=== PATIENT | male | born 1940 | race Caucasian/White ===

== ENCOUNTER 2016-11-27 10:12 | Emergency (ER) | payer MEDICARE ==
--- NOTE | 2016-11-27 10:59 | XR ---
EXAMINATION TYPE: XR ribs LT w pa chest xray DATE OF EXAM: 11/27/2016 10:48 AM COMPARISON: NONE HISTORY: Pain fall TECHNIQUE: AP chest and 2 views left RIBS FINDINGS: Multiple bilateral pulmonary nodules are present. The largest on the mid right lung measuri ng approximately 1.5 and 2.2 cm. Additional multiple smaller bilateral pulmonary nodules are present No pneumothorax is evident. On the rib study of 2.1 cm nodule at the left base may be visualized in t he retrocardiac region. No displaced rib fractures are evident. IMPRESSION: 1. Multiple bilateral pulmonary nodules. 2. No acute rib fractures
[2016-11-27] MEDS ORDERED: DIAZEPAM 5 MG TAB PO STA (11:50)
[2016-11-27] MEDS ORDERED: MORPHINE SULFATE 10 MG/ML SYRINGE IM STA (11:50)
[2016-11-27] MEDS ORDERED: KETOROLAC 60 MG/2 ML VIAL IM STA (11:55)
--- NOTE | 2016-11-27 11:55 | ED ---
Fall HPI - General Chief Complaint: Fall Stated Complaint: Fall Time Seen by Provider: 11/27/16 11:28 Source: patient, family, RN notes reviewed Mode of arrival: wheelchair - History of Present Illness Initial Comments: Patient is a 76-year-old male presents to the emergency room for evaluation of fall injury. Patient states that he tripped over a rug in the garage and fell on his left side landing on his left ribs. Patient denies head trauma. Patient denies loss of consciousness. Patient states having 10 out of 10 per pain every time he moves or takes a deep breath. Patient denies any other injuries during incident. Patient denies headache or dizziness. Patient denies cough. Patient denies abdominal pain. Patient denies taking any blood thinners. - Related Data Home Medications Medication Instructions Recorded Confirmed Aspirin 81 mg PO Q48H 11/27/16 11/27/16 Atenolol [Tenormin] 25 mg PO DAILY 11/27/16 11/27/16 Meloxicam [Mobic] 7.5 mg PO BID 11/27/16 11/27/16 Multivitamins, Thera [Multivitamin 1 tab PO DAILY 11/27/16 11/27/16 (formulary)] amLODIPine BESYLATE/BENAZEPRIL 1 cap PO DAILY 11/27/16 11/27/16 [Lotrel 10-20 mg Capsule] Previous Rx's Medication Instructions Recorded Diazepam [Valium] 5 mg PO BID PRN #10 tab 11/27/16 HYDROcodone/APAP 5-325MG [Tyrone 1 tab PO Q6HR PRN #12 tab 11/27/16 5-325] Allergies Allergy/AdvReac Type Severity Reaction Status Date / Time Saoudsz-Ujm-Epv Reductase AdvReac MUSCLE PAIN Verified 11/27/16 11:03 Inhibitor Review of Systems ROS Statement: Those systems with pertinent positive or pertinent negative responses have been documented in the HPI. ROS Other: All systems not noted in ROS Statement are negative. Past Medical History Past Medical History: Coronary Artery Disease (CAD), Hypertension, Osteoarthritis (OA) History of Any Multi-Drug Resistant Organisms: None Reported Past Surgical History: Heart Catheterization With Stent, Joint Replacement, Orthopedic Surgery Additional Past Surgical History / Comment(s): bilateral knees Past Psychological History: No Psychological Hx Reported Smoking Status: Former smoker Past Alcohol Use History: None Reported Past Drug Use History: None Reported General Exam - General Exam Comments Initial Comments: Sitting in exam room, no acute distress. Limitations: no limitations General appearance: alert, in no apparent distress Head exam: Present: atraumatic, normocephalic, normal inspection Eye exam: Present: normal appearance ENT exam: Present: normal exam Neck exam: Present: normal inspection Respiratory exam: Present: normal lung sounds bilaterally, chest wall tenderness (Tenderness on palpating left anterior ribs). Absent: respiratory distress Cardiovascular Exam: Present: regular rate, normal rhythm, normal heart sounds Extremities exam: Present: normal inspection Back exam: Present: normal inspection Neurological exam: Present: alert, oriented X3, CN II-XII intact, normal gait Psychiatric exam: Present: normal affect, normal mood Skin exam: Present: warm, dry, intact, normal color. Absent: rash Course Vital Signs 11/27/16 11/27/16 10:17 12:51 Temperature 98.1 F 98.4 F Pulse Rate 67 64 Respiratory 20 18 Rate Blood Pressure 143/83 138/56 O2 Sat by Pulse 96 94 L Oximetry Medical Decision Making - Medical Decision Making Patient is a 26-year-old male presents emergency room for evaluation of fall injury. Patient states 10 pain and left anterior rib area. No fractures or dislocations noted on chest x-ray. Patient is feeling better after pain medications given. Patient will be sent home with incentive spirometer. Patient was sent home with pain medications. Advised patient to follow-up with his primary care provider in 24-48 hours for reevaluation. Patient states she understands everything that was discussed with him. Return parameters discussed. Case discussed with Dr. Mcneil. - Radiology Data Radiology results: report reviewed, image reviewed Disposition Clinical Impression: Fall, Rib contusion Disposition: HOME SELF-CARE Condition: Good Instructions: Fall Prevention for Older Adults (ED), Rib Contusion (ED) Additional Instructions: Use incentive spirometer as directed. Take pain medications as needed. Please follow-up with primary care provider for reevaluation. If any new symptom arises or symptoms worsen, return to ER as soon as possible. Prescriptions: HYDROcodone/APAP 5-325MG [Tyrone 5-325] 1 tab PO Q6HR PRN #12 tab PRN Reason: Pain Diazepam [Valium] 5 mg PO BID PRN #10 tab PRN Reason: Pain Referrals: Fredy Rodriguez III, MD [Primary Care Provider] - 1-2 days Time of Disposition: 13:07
[2016-11-27 12:52] VITALS: BP 138/56; PULSE 64; RESP 18; TEMP 98.4
== END 2016-11-27 13:38 | disposition home or self-care (01) ==
LOC: EC 10:12
DX: S20.219A Contusion of unspecified front wall of thorax, initial encounter (principal); I10 Essential (primary) hypertension; M19.90 Unspecified osteoarthritis, unspecified site; Z87.891 Personal history of nicotine dependence; Z79.1 Long term (current) use of non-steroidal anti-inflammatories (NSAID); Z79.82 Long term (current) use of aspirin; Z79.899 Other long term (current) drug therapy; Z88.8 Allergy status to other drugs, medicaments and biological substances; W18.09XA Striking against other object with subsequent fall, initial encounter; Y92.59 Other trade areas as the place of occurrence of the external cause
CPT/HCPCS: 71101; 99283; 96372 ×2; J2270; J1885

== ENCOUNTER → 2016-12-24 | Outpatient (CLI) | payer MEDICARE ==
--- NOTE | 2016-12-24 10:20 | CT ---
EXAMINATION TYPE: CT chest wo con DATE OF EXAM: 12/24/2016 COMPARISON: CT chest October 19, 2015 and older exam October 26, 2014. PET/CT February 23, 2016 HISTORY: Lung nodule CT DLP: 952 mGycm. Automated Exposure Control for Dose Reduction was Utilized. TECHNIQUE: CT scan of the thorax is performed without IV contrast. FINDINGS: Exam is more accurately compare to older CT October 26, [address] is performed under hi gh-resolution protocol making evaluation for subcentimeter nodules suboptimal. LUNGS: There is redemonstration of scattered bilateral pulmonary nodules. For reference anterolateral right upper lobe nodule measures 2.0 x 1.7 cm on current study image 25 increased in size from 1.5 c m on long axis on prior study. For reference left lower lobe nodule measured 1.8 cm on long axis prio r study and now measures 2.1 cm on long axis current study axial image 36. For reference right midlun g nodule measures 1.8 cm on long axis axial image 22 and measured 1.4 cm on prior study. There is 8 m m slightly spiculated nodule anteriorly left upper lobe on axial image 16 more prominent than prior C T, this nodule showed some mild hypermetabolic uptake on PET CT. No pleural effusion or pneumothorax is seen bilaterally. Tracheobronchial tree is patent. MEDIASTINUM: Lack of IV contrast is noted to limit evaluation for mediastinal and especially hilar ad enopathy. There are no definitive greater than 1 cm hilar or mediastinal lymph nodes. There is persis tent cardiomegaly. There is redemonstration of three-vessel coronary artery calcification. No pericar dial effusion is seen. There is mild calcified plaque in slightly ectatic descending aorta. OTHER: Liver is diffusely low dense consistent with fatty infiltration. There is 2.8 cm oval low dens e lesion right hepatic lobe on axial image 51 felt to reflect hepatic cysts as Hounsfield units measu re less than 0. There is partial visualization of bilateral nonobstructing renal calculi. There is mu ltilevel spurring in the spine. IMPRESSION: Scattered pulmonary nodules stable or slightly increased in size in just over 2 year int erval, metastatic disease still cannot be excluded. Majority nodules not significantly changed from P ET CT February 23, 2016 except 8 mm spiculated nodule left upper lobe. Continued CT imaging follow-up a dvised.
== END | disposition home or self-care (01) ==
LOC: RADCTMAIN 08:36
PROVIDERS: ATTEND Internal Medicine
DX: R91.8 Other nonspecific abnormal finding of lung field (principal)
CPT/HCPCS: 71250

== ENCOUNTER → 2017-07-08 | Outpatient (CLI) | payer MEDICARE ==
--- NOTE | 2017-07-08 10:36 | US ---
EXAMINATION TYPE: US abd limited kidneys/bladder DATE OF EXAM: 07/08/2017 COMPARISON: CT abdomen and pelvis June 15, 2017 CLINICAL HISTORY: Q44.6 Cystic disease of liver. EXAM MEASUREMENTS: Liver Length: 14.7 cm Gallbladder Wall: 0.3 cm CBD: 0.3 cm Right Kidney: 14.1 x 4.6 x4.6 cm Left Kidney: 14.3 x 5.4 x 5.8 cm Morbidly obese patient, technically difficult study. Pancreas: Obscured by bowel gas Liver: Increased attenuation, decreased visualization of vessels suggestive of fatty infiltrate, jacek er cyst measuring 2.3 x 2.2. x 2.3cm Gallbladder: stone within CBD: wnl Right Kidney: measures large, mild hydro, stone measuring 0.5 x 0.3 x 0.5cm Left Kidney: measures large, echogenic foci, largest measuring 0.9 x 0.5 x 0.5 x 0.9 Bladder: wnl Exam is suboptimal due to patient's large body habitus per technologist. Pancreas is suboptimally seun luated on images saved. Visualized portion of liver shows heterogeneous hyperechoic appearance withou t intrahepatic ductal dilatation. Evaluation for focal masses is suboptimal due to the heterogeneity. Corresponding to CT there is 2.2 cm round anechoic lesion system with simple cyst in the right hepat ic dome. There is persistent mild to moderate right-sided hydronephrosis redemonstrated. Technologist garibay 4 mm isoechoic focus mid to lower pole level right kidney lateral aspect, no corresponding stone is see n on recent CT. Large shadowing gallstone in gallbladder is redemonstrated. There is no gallbladder w all thickening or pericholecystic fluid. No left-sided hydronephrosis is seen. Technologist garibay 5 mm nonshadowing hyperechoic focus upper po le level right kidney that may corresponds to the nonobstructing calculus seen on CT. Bladder is satisfactorily distended without distal Jets identified on images saved. IMPRESSION: Stable mild to moderate right-sided hydronephrosis may be on basis of known proximal righ t ureter calculi.
== END | disposition home or self-care (01) ==
LOC: RADUSWWP 08:00
PROVIDERS: ATTEND Family Medicine
DX: N13.30 Unspecified hydronephrosis (principal); Q44.6 Cystic disease of liver
CPT/HCPCS: 76705; 76770

== ENCOUNTER 2017-08-16 11:36 | Emergency (ER) | payer MEDICARE ==
[2017-08-16] MEDS ORDERED: IPRATROPIUM-ALBUTEROL 3 ML NEB INHALATION STA (11:59)
[2017-08-16] MEDS ORDERED: FUROSEMIDE 10 MG/ML 4 ML VIAL IV STA (12:03)
[2017-08-16] MEDS ORDERED: methylPREDNISolone SOD SUCCI 125 MG/2 ML VIAL IV STA (12:03)
--- NOTE | 2017-08-16 12:06 | ED ---
SOB HPI - General Chief Complaint: Shortness of Breath Stated Complaint: SOB Time Seen by Provider: 08/16/17 11:43 Source: patient, family, RN notes reviewed Mode of arrival: wheelchair Limitations: no limitations - History of Present Illness Initial Comments: This is a 77-year-old male with a history of COPD and granulomatous lung disease who states she's had shortness of breath or past several days. He has exertional dyspnea no overt chest pain he denies any fevers chills sweats rhinorrhea. He does state he is had increased edema to his lower extremities. No other complaints at this time. MD Complaint: shortness of breath - Related Data Home Medications Medication Instructions Recorded Confirmed Aspirin 81 mg PO Q48H 11/27/16 08/16/17 Atenolol [Tenormin] 25 mg PO DAILY 11/27/16 08/16/17 Meloxicam [Mobic] 7.5 mg PO BID 11/27/16 08/16/17 Multivitamins, Thera [Multivitamin 1 tab PO DAILY 11/27/16 08/16/17 (formulary)] amLODIPine BESYLATE/BENAZEPRIL 1 cap PO DAILY 11/27/16 08/16/17 [Lotrel 10-20 mg Capsule] Previous Rx's Medication Instructions Recorded Ipratropium/Albuterol Sulfate 2 puff INHALATION QID #1 inhaler 08/16/17 [Combivent Respimat Inhaler] predniSONE 20 mg PO BID #10 tab 08/16/17 Allergies Allergy/AdvReac Type Severity Reaction Status Date / Time Iimlmrc-Wjc-Khj Reductase AdvReac MUSCLE PAIN Verified 08/16/17 12:30 Inhibitor Review of Systems ROS Statement: Those systems with pertinent positive or pertinent negative responses have been documented in the HPI. ROS Other: All systems not noted in ROS Statement are negative. Past Medical History Past Medical History: Coronary Artery Disease (CAD), Hypertension, Osteoarthritis (OA) History of Any Multi-Drug Resistant Organisms: None Reported Past Surgical History: Heart Catheterization With Stent, Joint Replacement, Orthopedic Surgery Additional Past Surgical History / Comment(s): bilateral knees Past Psychological History: No Psychological Hx Reported Smoking Status: Former smoker Past Alcohol Use History: None Reported Past Drug Use History: None Reported General Exam - General Exam Comments Initial Comments: This is a well-developed well-nourished awake alert oriented 3 male Limitations: no limitations General appearance: alert, anxious, in distress Head exam: Present: atraumatic, normocephalic, normal inspection Eye exam: Present: normal appearance, PERRL, EOMI. Absent: scleral icterus, conjunctival injection, periorbital swelling ENT exam: Present: normal exam, mucous membranes moist Neck exam: Present: normal inspection. Absent: tenderness, meningismus, lymphadenopathy Respiratory exam: Present: wheezes, decreased breath sounds. Absent: respiratory distress, rales, rhonchi, stridor, chest wall tenderness Cardiovascular Exam: Present: bradycardia, irregular rhythm. Absent: systolic murmur, diastolic murmur, rubs, gallop, clicks GI/Abdominal exam: Present: soft, normal bowel sounds. Absent: distended, tenderness, guarding, rebound, rigid Extremities exam: Present: full ROM, normal capillary refill, pedal edema, other (Stasis dermatitis is noted.). Absent: tenderness, joint swelling, calf tenderness Back exam: Present: normal inspection Neurological exam: Present: alert, oriented X3, CN II-XII intact Psychiatric exam: Present: normal affect, normal mood Skin exam: Present: warm, dry, intact, normal color. Absent: rash Course Vital Signs 08/16/17 08/16/17 08/16/17 11:44 12:04 12:08 Temperature 97.5 F L Pulse Rate 53 L 52 L Respiratory 33 H 30 H Rate Blood Pressure 174/87 O2 Sat by Pulse 90 L Oximetry 08/16/17 08/16/17 08/16/17 12:20 12:46 13:46 Temperature Pulse Rate 56 L 57 L 65 Respiratory 26 H 16 Rate Blood Pressure 133/67 135/61 O2 Sat by Pulse 92 L 94 L Oximetry 08/16/17 14:50 Temperature Pulse Rate 53 L Respiratory 16 Rate Blood Pressure 122/60 O2 Sat by Pulse 94 L Oximetry Medical Decision Making - Medical Decision Making Patient initially much improved he was able to ambulate without difficulty maintaining saturation. He would like to go home he'll be placed on oral steroids as well as an inhaler. He is to follow-up with his doctor return when necessary - Lab Data Result diagrams: 08/16/17 11:56 08/16/17 11:56 Lab Results 08/16/17 08/16/17 08/16/17 Range/Units 11:56 11:56 11:56 WBC 4.9 (3.8-10.6) k/uL RBC 4.82 (4.30-5.90) m/uL Hgb 14.5 (13.0-17.5) gm/dL Hct 45.2 (39.0-53.0) % MCV 93.7 (80.0-100.0) fL MCH 30.1 (25.0-35.0) pg MCHC 32.1 (31.0-37.0) g/dL RDW 15.0 (11.5-15.5) % Plt Count 190 (150-450) k/uL Neutrophils % 49 % Lymphocytes % 39 % Monocytes % 5 % Eosinophils % 6 % Basophils % 1 % Neutrophils # 2.4 (1.3-7.7) k/uL Lymphocytes # 1.9 (1.0-4.8) k/uL Monocytes # 0.2 (0-1.0) k/uL Eosinophils # 0.3 (0-0.7) k/uL Basophils # 0.0 (0-0.2) k/uL Hypochromasia Slight Poikilocytosis Slight PT (9.0-12.0) sec INR (<1.2) APTT (22.0-30.0) sec Sodium 143 (137-145) mmol/L Potassium 3.9 (3.5-5.1) mmol/L Chloride 104 (98-107) mmol/L Carbon Dioxide 30 (22-30) mmol/L Anion Gap 9 mmol/L BUN 14 (9-20) mg/dL Creatinine 0.59 L (0.66-1.25) mg/dL Est GFR (MDRD) Af Amer >60 (>60 ml/min/1.73 sqM) Est GFR (MDRD) Non-Af >60 (>60 ml/min/1.73 sqM) Glucose 125 H (74-99) mg/dL Calcium 8.8 (8.4-10.2) mg/dL Magnesium 1.9 (1.6-2.3) mg/dL Total Bilirubin 0.6 (0.2-1.3) mg/dL AST 24 (17-59) U/L ALT 34 (21-72) U/L Alkaline Phosphatase 72 (38-126) U/L Total Creatine Kinase 37 L (55-170) U/L CK-MB (CK-2) 0.5 (0.0-2.4) ng/mL CK-MB (CK-2) Rel Index 1.4 Troponin I <0.012 (0.000-0.034) ng/mL NT-Pro-B Natriuret Pep pg/mL Total Protein 6.0 L (6.3-8.2) g/dL Albumin 3.5 (3.5-5.0) g/dL 08/16/17 08/16/17 Range/Units 11:56 11:56 WBC (3.8-10.6) k/uL RBC (4.30-5.90) m/uL Hgb (13.0-17.5) gm/dL Hct (39.0-53.0) % MCV (80.0-100.0) fL MCH (25.0-35.0) pg MCHC (31.0-37.0) g/dL RDW (11.5-15.5) % Plt Count (150-450) k/uL Neutrophils % % Lymphocytes % % Monocytes % % Eosinophils % % Basophils % % Neutrophils # (1.3-7.7) k/uL Lymphocytes # (1.0-4.8) k/uL Monocytes # (0-1.0) k/uL Eosinophils # (0-0.7) k/uL Basophils # (0-0.2) k/uL Hypochromasia Poikilocytosis PT 10.5 (9.0-12.0) sec INR 1.1 (<1.2) APTT 23.6 (22.0-30.0) sec Sodium (137-145) mmol/L Potassium (3.5-5.1) mmol/L Chloride (98-107) mmol/L Carbon Dioxide (22-30) mmol/L Anion Gap mmol/L BUN (9-20) mg/dL Creatinine (0.66-1.25) mg/dL Est GFR (MDRD) Af Amer (>60 ml/min/1.73 sqM) Est GFR (MDRD) Non-Af (>60 ml/min/1.73 sqM) Glucose (74-99) mg/dL Calcium (8.4-10.2) mg/dL Magnesium (1.6-2.3) mg/dL Total Bilirubin (0.2-1.3) mg/dL AST (17-59) U/L ALT (21-72) U/L Alkaline Phosphatase (38-126) U/L Total Creatine Kinase (55-170) U/L CK-MB (CK-2) (0.0-2.4) ng/mL CK-MB (CK-2) Rel Index Troponin I (0.000-0.034) ng/mL NT-Pro-B Natriuret Pep 761 pg/mL Total Protein (6.3-8.2) g/dL Albumin (3.5-5.0) g/dL - EKG Data -: EKG Interpreted by Me (Atrial fibrillation with a rate of 54 QRS 86 QT since QTC of 432/409 st-t w) - Radiology Data Radiology results: report reviewed (No acute findings), image reviewed Disposition Clinical Impression: Acute exacerbation of chronic obstructive airways disease, Bronchospasm, Chronic atrial fibrillation Disposition: HOME SELF-CARE Condition: Good Instructions: Bronchospasm (ED), COPD (Chronic Obstructive Pulmonary Disease) ( ED) Prescriptions: Ipratropium/Albuterol Sulfate [Combivent Respimat Inhaler] 2 puff INHALATION QID #1 inhaler predniSONE 20 mg PO BID #10 tab Referrals: Fredy Rodriguez III, MD [Primary Care Provider] - 1-2 days
[2017-08-16 12:14] LABS: Basophils % (A) 1 %; Eosinophils # (A) 0.3 k/uL (0-0.7); Eosinophils % (A) 6 %; HCT 45.2 % (39.0-53.0); HGB 14.5 gm/dL (13.0-17.5); Hypochromasia Slight; Lymphocytes # (A) 1.9 k/uL (1.0-4.8); Lymphocytes % (A) 39 %; MCH 30.1 pg (25.0-35.0); MCHC 32.1 g/dL (31.0-37.0); MCV 93.7 fL (80.0-100.0); Mean Platelet Volume 7.6; Monocytes # (A) 0.2 k/uL (0-1.0); Monocytes % (A) 5 %; Neutrophils # (A) 2.4 k/uL (1.3-7.7); Neutrophils % (A) 49 %; Platelet Count 190 k/uL (150-450); Poikilocytosis Slight; RBC 4.82 m/uL (4.30-5.90); WBC 4.9 k/uL (3.8-10.6)
[2017-08-16 12:30] LABS: INR 1.1 (<1.2); Partial Thromboplastin Time 23.6 sec (22.0-30.0); Prothrombin Time 10.5 sec (9.0-12.0)
[2017-08-16 12:31] LABS: ALT 34 U/L (21-72); AST 24 U/L (17-59); Albumin 3.5 g/dL (3.5-5.0); Alkaline Phosphatase 72 U/L (38-126); Anion Gap 9 mmol/L; Blood Urea Nitrogen 14 mg/dL (9-20); Calcium 8.8 mg/dL (8.4-10.2); Carbon Dioxide 30 mmol/L (22-30); Chloride 104 mmol/L (98-107); Glucose 125 mg/dL (74-99); Magnesium 1.9 mg/dL (1.6-2.3); Potassium 3.9 mmol/L (3.5-5.1); Sodium 143 mmol/L (137-145); Total Bilirubin 0.6 mg/dL (0.2-1.3)
[2017-08-16 12:49] LABS: Creatine Kinase 37 U/L (55-170)
[2017-08-16 13:00] LABS: Creatine Kinase MB 0.5 ng/mL (0.0-2.4); Troponin I <0.012 ng/mL (0.000-0.034)
--- NOTE | 2017-08-16 13:17 | XR ---
EXAMINATION TYPE: XR chest 2V DATE OF EXAM: 08/16/2017 HISTORY: difficulty breathing. REFERENCE: Previous study dated 11/27/2016. FINDINGS: Once again, multiple pulmonary nodules are noted. The heart is enlarged. There is chronic, appearing elevation of the right hemidiaphragm. Pleural spaces are clear. IMPRESSION: 1. MULTIPLE PULMONARY NODULES. 2. CARDIOMEGALY.
[2017-08-16 15:57] VITALS: BP 136/83; PULSE 59; RESP 20
[2017-08-16 15:58] VITALS: TEMP 98.2
== END 2017-08-16 16:01 | disposition home or self-care (01) ==
LOC: EC 11:36
DX: J44.1 Chronic obstructive pulmonary disease with (acute) exacerbation (principal); J98.01 Acute bronchospasm; I48.2 Chronic atrial fibrillation; I10 Essential (primary) hypertension; M19.90 Unspecified osteoarthritis, unspecified site; I25.10 Atherosclerotic heart disease of native coronary artery without angina pectoris; Z95.5 Presence of coronary angioplasty implant and graft; Z87.891 Personal history of nicotine dependence; Z88.8 Allergy status to other drugs, medicaments and biological substances; Z79.82 Long term (current) use of aspirin; Z79.1 Long term (current) use of non-steroidal anti-inflammatories (NSAID); Z79.899 Other long term (current) drug therapy
CPT/HCPCS: 36415; 94640; 93005; 83880; 80053; 82550; 82553; 83735; 84484; 85025; 85610; 85730; 71046; 99285; 96374; 96375; J1940; J2930

== ENCOUNTER → 2017-10-29 | Outpatient (CLI) | payer MEDICARE ==
--- NOTE | 2017-10-29 09:19 | CT ---
EXAMINATION TYPE: CT chest wo con DATE OF EXAM: 10/29/2017 COMPARISON: 05/05/2017 HISTORY: Multiple nodules of lung CT DLP: 1052.50 mGycm, Automated exposure control for dose reduction was used. CONTRAST: Performed injected with 0 mL of Isovue 300. TECHNIQUE: Axial images were obtained at 5 mm thick sections. Reconstructed images are reviewed on t he computer in the coronal plane. FINDINGS: Portion of the thyroid visualized is normal. There is a spiculated mass in the anterior peripheral left upper lobe measuring 1.7 cm. Series 4 imag e 15. This is increased in size from 1.2 cm. There is a stable 1.2 cm nodule within the posterior right upper lobe. Previous measurement 1.1 cm. T his may be within measurement error. Minimal enlargement is not excluded. Multiple additional rounded nodules are present bilaterally. These appear similar in size to the comp arison study. Multiple shotty lymph nodes are within the mediastinum. There is an enlarged pretracheal lymph node just above the level of larissa measuring 1.2 cm in transverse dimension. Series 3 image 22. The ascending aorta diameter at the level of the main pulmonary artery is 4.5 cm. The main pulmonary artery diameter at the bifurcation is 4.0 cm. Coronary artery calcification is present. Limited CT sections are obtained through the upper abdomen. There is a 2.2 cm hypodensity within the superior right lobe liver on this is stable in transverse dimension from the comparison. Superior sofi e nonobstructing left renal stone measuring 0.7 cm is present. IMPRESSIONS: 1. Enlarging suspicious spiculated mass superior left lung, increased in size from 1.2 to 1.7 cm. 2. Multiple additional nodules appear more stable over the interval. Subtle increase in size of a mil limeter may be present.
== END | disposition home or self-care (01) ==
LOC: RADCTMAIN 08:40
PROVIDERS: ATTEND Internal Medicine
DX: R91.8 Other nonspecific abnormal finding of lung field (principal); Z88.8 Allergy status to other drugs, medicaments and biological substances
CPT/HCPCS: 71250

== ENCOUNTER → 2018-02-15 | Outpatient (CLI) | payer MEDICARE ==
--- NOTE | 2018-02-15 16:38 | XR ---
EXAMINATION TYPE: XR chest 2V DATE OF EXAM: 02/15/2018 COMPARISON: August 16, 2017 HISTORY: Shortness of breath TECHNIQUE: Frontal and lateral views of the chest are obtained. FINDINGS: Scattered senescent parenchymal changes noted. Hyperinflation compatible with COPD. Bilateral pulmonary nodules appear to be essentially unchanged. Mild elevation right hemidiaphragm. Heart size is stable. Mediastinal structures are stable and grossly unremarkable. No evidence for hilar prominence. Degenerative changes dorsal spine. IMPRESSION: 1. No evidence for acute pulmonary disease. Bilateral pulmonary nodules. Correlate for metastatic dis ease.
[2018-02-15 16:51] LABS: Basophils % (A) 0 %; Eosinophils # (A) 0.4 k/uL (0-0.7); Eosinophils % (A) 6 %; HCT 47.6 % (39.0-53.0); HGB 15.5 gm/dL (13.0-17.5); Lymphocytes # (A) 1.6 k/uL (1.0-4.8); Lymphocytes % (A) 25 %; MCH 29.6 pg (25.0-35.0); MCHC 32.5 g/dL (31.0-37.0); MCV 91.2 fL (80.0-100.0); Mean Platelet Volume 7.3; Monocytes # (A) 0.4 k/uL (0-1.0); Monocytes % (A) 7 %; Neutrophils # (A) 3.9 k/uL (1.3-7.7); Neutrophils % (A) 61 %; Platelet Count 256 k/uL (150-450); RBC 5.23 m/uL (4.30-5.90); RDW 15.4 % (11.5-15.5); WBC 6.4 k/uL (3.8-10.6)
[2018-02-15 16:58] LABS: ALT 34 U/L (21-72); AST 22 U/L (17-59); Albumin 3.8 g/dL (3.5-5.0); Alkaline Phosphatase 77 U/L (38-126); Anion Gap 8 mmol/L; Blood Urea Nitrogen 25 mg/dL (9-20); Calcium 9.3 mg/dL (8.4-10.2); Carbon Dioxide 31 mmol/L (22-30); Chloride 104 mmol/L (98-107); Creatine Kinase 36 U/L (55-170); Glucose 102 mg/dL (74-99); Potassium 4.8 mmol/L (3.5-5.1); Sodium 143 mmol/L (137-145); Total Bilirubin 0.7 mg/dL (0.2-1.3); Total Protein 6.3 g/dL (6.3-8.2)
[2018-02-15 17:14] LABS: T4, Free (Free Thyroxine) 0.96 ng/dL (0.78-2.19)
== END | disposition home or self-care (01) ==
LOC: RADXRMAIN 16:06
PROVIDERS: ATTEND Internal Medicine Critical Care Medicine
DX: R91.8 Other nonspecific abnormal finding of lung field (principal); Z88.8 Allergy status to other drugs, medicaments and biological substances
CPT/HCPCS: 36415; 71046; 80053; 82550; 83880; 84439; 84443; 84484; 85025

== ENCOUNTER 2018-02-23 07:39 | Day surgery (SDC) | payer MEDICARE ==
[~2018-02-23 07:39] MED LIST: ALPRAZolam 0.25 MG TAB PO PRN; ASPIRIN 325 MG TAB PO ONE; SODIUM CHLORIDE 0.9% 1,000 ML IV SCH; SODIUM CHLORIDE 0.9% 1,000 ML in EMPTY BAG 1 BAG IV ONE; ceFAZolin 1,000 MG in SODIUM CHLORIDE 0.9% IRRIGATIO 250 ML IRRIGATION ONE; ceFAZolin IN SWFI 2 GM/20 ML SYRINGE IVP ONE
[2018-02-23] MEDS ORDERED: PROPOFOL 10 MG/ML 20 ML VIAL IV ONE (11:24)
[2018-02-23] MEDS ORDERED: GLYCOPYRROLATE 0.2 MG/ML 2 ML VIAL ONE (11:24)
[2018-02-23] MEDS ORDERED: MIDAZOLAM 2 MG/2 ML VIAL ONE (11:24)
[2018-02-23] MEDS ORDERED: FUROSEMIDE 10 MG/ML 2 ML VIAL ONE (11:24)
[2018-02-23] MEDS ORDERED: fentaNYL (PF) 50 MCG/ML 2 ML AMP ONE (11:24)
[2018-02-23] MEDS ORDERED: LIDOCAINE 1% INJ 10MG/ML (20 ML MDV) ONE (11:27)
[2018-02-23] MEDS ORDERED: IOPAMIDOL-250 50ML BTL IV ONE (12:02)
[2018-02-23] MEDS ORDERED: LIDOCAINE 1% (PF) 10MG/ML VIAL SQ ONE (12:20)
[2018-02-23] MEDS: LIDOCAINE 1% INJ 10MG/ML (20 ML MDV) SQ ONE ×2 (12:20→12:30)
[2018-02-23] MEDS ORDERED: LIDOCAINE 1% INJ 10MG/ML (20 ML MDV) SQ ONE (12:30)
[2018-02-23] MEDS ORDERED: ACETAMINOPHEN TAB 325 MG TAB PO PRN (13:46)
[2018-02-23] MEDS ORDERED: ACETAMINOPHEN IV (For NPO) 1,000 MG in EMPTY BAG 1 BAG IVPB ONE (13:46)
[2018-02-23] MEDS ORDERED: HYDROcodone/APAP 5-325MG 1 EACH TAB PO PRN (13:46)
--- NOTE | 2018-02-23 15:34 | PCN ---
PROCEDURE NOTE De Prieto is a 77 -year-old male patient who has severe bradycardia. His yoker noted symptomatic bradycardia with dizziness and shortness of breath and stopped the beta lawrence. He had a followup Holter monitor thereafter and he continues to have severe bradycardia. When he came in today his resting heart rates were in the 40s with pauses and he was dizzy at rest. He had a recent onset atrial fibrillation and therefore a dual-chamber pacemaker was implanted for management of bradycardia as well as atrial fibrillation. DESCRIPTION OF PROCEDURE: The patient is brought to the EP lab in a fasting state. Written informed consent was obtained prior to the procedure. He was short of breath at rest and therefore a Tran catheter was placed. IV Lasix was administered. His LV function was normal. He has had a coronary stent in 2001. He is obese. The left pectoral area was prepped and draped as per protocol. 1% lidocaine was used for local anesthesia. A 4 cm incision was made parallel to the deltopectoral groove, about 1.5 cm medial to it. The incision was carried down to the level of the pectoralis muscle. A subfascial pocket was made. Hemostasis was assured. The left axillary vein was accessed at 2 separate points under fluoroscopy and via appropriately- sized introducer sheaths, 2 leads were positioned the right heart. The right heart pressures were elevated. The RV was enlarged and therefore a single coil ICD lead was used on account of a long length as well as evidence being a heavy lead. The RV lead was positioned in the mid RV septum. This was [employer] model #7122, 65 cm length, serial number [id number]. The current VT protocol was followed. R-waves 10 mV, pacing threshold 0.7 V at 0.4 milliseconds, pacing impedance of 740 ohms, 10 V test negative. The atrial lead was a passive lead positioned in the right atrial appendage. This was an Isoflex Uptom 1944, 52 cm in length and serial number [id number], waves were between 1 to 2 mV. Pacing impedance 710 ohms, 10 V test negative. Both leads were secured to the underlying pectoralis fascia using 2 nonabsorbable sutures. Pocket was irrigated with antibiotic solution. Leads were connected to the generator. The VF pin was capped and secured to the muscle. A dual-chamber pacemaker [employer] [facility] 2272 serial #[id number] was implanted. The wound was closed in 3 layers and dressed per protocol. This was a long procedure, longer than usual for dual-chamber pacemaker. This was a gentleman with increased BMI. Anesthesia was applied during the procedure. The subfascial pocket took longer to make on account of the patient's body habitus. RV pressures were elevated and instead of a pacemaker lead and ICD lead was employed on account of its length and wait for better suitability for this right ventricle but only for pacing needs. The patient tolerated the procedure well without any acute complications. PLAN: IV antibiotics and discharge home tomorrow after the device interrogation, chest x-ray. MMODL / IJN: [id number] /
[2018-02-23] MEDS: ceFAZolin IN SWFI 2 GM/20 ML SYRINGE IVP SCH (17:38)
[2018-02-23 23:34] VITALS: BMI 46.5
[2018-02-24] MEDS: MELOXICAM 7.5 MG TAB PO SCH ×2 (00:19→08:57)
[2018-02-24] MEDS: ceFAZolin IN SWFI 2 GM/20 ML SYRINGE IVP SCH ×3 (00:25→11:29)
--- NOTE | 2018-02-24 07:15 | XR ---
EXAMINATION TYPE: XR chest 2V DATE OF EXAM: 02/24/2018 COMPARISON: Prior chest x-ray 02/15/2018 HISTORY: Lead placement check TECHNIQUE: Frontal and lateral views of the chest are obtained. FINDINGS: There is been interval placement of a generator in the left pectoral region, there are arlin ds in the right atrium and ventricle. There are overlying cardiac leads. Interstitium is increased. T here are bilateral pulmonary nodules. The heart is enlarged. No evident pneumothorax or pleural effus ion. IMPRESSION: Multiple indeterminate pulmonary nodules, consider metastatic disease. No evident compli cation status post defibrillator placement. Correlate for pulmonary venous hypertension and interstit ial edema.
[2018-02-24 07:53] VITALS: BP 118/73; PULSE 71; RESP 16; TEMP 98.3
--- NOTE | 2018-02-24 08:15 | P.DS ---
Providers Attending physician: Oleg Summers Primary care physician: [facility] Course: Patient is doing well. He is resting comfortably in bed. Minimal pain over the pacemaker site no hematoma no bruising no bleeding No dizziness lightheadedness or palpitations On examination blood pressure is 118/73 milligrams of mercury respirations are normal pulse rate is in the 70s afebrile 98.3F Breath sounds are clear no rhonchi no crackles Abdomen soft nontender Heart sounds S1 and S2 are normal no murmurs no gallops or rub rhythm is irregular Impression Persistent atrial fibrillation with severe intermittent bradycardia, symptomatic with shortness of breath and dizziness despite discontinuation of beta blockers Known coronary artery disease status post coronary stenting in the past Status post dual-chamber pacemaker Persistent atrial fibrillation of recent onset Plan Anti-coagulated with ELIQUIS continue other medications antibiotics. Chest x- ray was reviewed. After pacemaker interrogation he may go home and follow-up with Dr. Candelario in the device clinic within a week. Assessment for coronary artery disease progression Thereafter atrial fibrillation management since this is a recent onset persistent atrial fibrillation Plan - Discharge Summary Discharge Rx Participant: No New Discharge Prescriptions: New Apixaban [Eliquis] 5 mg PO BID #60 tab No Action Aspirin 81 mg PO Q48H amLODIPine BESYLATE/BENAZEPRIL [Lotrel 10-20 mg Capsule] 1 cap PO DAILY Multivitamins, Thera [Multivitamin (formulary)] 1 tab PO DAILY Meloxicam [Mobic] 7.5 mg PO BID Tamsulosin [Flomax] 0.4 mg PO DAILY Furosemide [Lasix] 20 mg PO DAILY Cholecalciferol (Vitamin D3) [Vitamin D3] 2,000 unit PO DAILY Discharge Medication List Aspirin 81 mg PO Q48H 11/27/16 [History] Meloxicam [Mobic] 7.5 mg PO BID 11/27/16 [History] Multivitamins, Thera [Multivitamin (formulary)] 1 tab PO DAILY 11/27/16 [History ] amLODIPine BESYLATE/BENAZEPRIL [Lotrel 10-20 mg Capsule] 1 cap PO DAILY [History] Cholecalciferol (Vitamin D3) [Vitamin D3] 2,000 unit PO DAILY 02/19/18 [History] Furosemide [Lasix] 20 mg PO DAILY 02/19/18 [History] Tamsulosin [Flomax] 0.4 mg PO DAILY 02/19/18 [History] Apixaban [Eliquis] 5 mg PO BID #60 tab 02/23/18 [Rx] Follow up Appointment(s)/Referral(s): Oleg Summers MD [STAFF PHYSICIAN] - 1 Week (Device clinic 5 days follow-up Dr. Candelario as previously scheduled) Activity/Diet/Wound Care/Special Instructions: PATIENT EDUCATION MATERIAL Instructions following a heart rhythm device implant. 1. Keep dressing DRY for 5 DAYS. You may cover the area with Saran or Cling Wrap, prior to a shower. 2. The dressing will be removed in the Device Clinic at [facility]. Absorbable sutures were used to close the wound. 3. Avoid raising the left arm above the shoulder level. 4 week restriction 4. Avoid arm movements, like backscratching, rubbing the head, or pulling on a cord. 4 weeks restriction 5. Gentle range of motion movements of the shoulder, closest to the incision should be performed to avoid a frozen shoulder. (Pendulum exercises of the shoulder) 6. The opposite arm may be used freely. 7. Avoid driving for 7 days. 8. Avoid activities such as golfing, swimming, weed whacking, lifting more than 10 pounds weight, bowling, gymnastics and weight training/lifting. (6 weeks restriction) 9. Activities such as wood chopping with an axe, pull-ups in the gymnasium, power lifting, arc-welding, being close to home induction cooktops will always be a problem. 10. Arm sling is only a reminder not to raise the arm above the head. You do not need to keep the arm completely immobilized. Your free to move the arm and use it and for normal activities. In case of any problems, please call [facility] [place], @ [phone], Attention: Device Clinic Device clinic follow-up in 5 days Follow-up with primary food and beverage lead in 2-3 months
[2018-02-24] MEDS ORDERED: FUROSEMIDE 20 MG TAB PO SCH (09:00)
[2018-02-24] MEDS ORDERED: amLODIPine 10 MG TAB PO SCH (09:00)
[2018-02-24] MEDS ORDERED: LISINOPRIL 20 MG TAB PO SCH (09:00)
[2018-02-24] MEDS ORDERED: TAMSULOSIN 0.4 MG CAP.ER.24H PO SCH (09:00)
[2018-02-24] MEDS ORDERED: MULTIVITAMINS, THERA 1 EACH TAB PO SCH (12:00)
[2018-02-25] MEDS ORDERED: ASPIRIN 81 MG PO SCH (09:00)
== END 2018-02-24 12:15 | disposition home or self-care (01) ==
LOC: CATHCVL 07:39 → 3OBS 13:27 → CATHCVL 02-24 12:15
PROVIDERS: ATTEND Internal Medicine Interventional Cardiology
DX: R00.1 Bradycardia, unspecified (principal); I48.0 Paroxysmal atrial fibrillation; Z95.5 Presence of coronary angioplasty implant and graft; I25.10 Atherosclerotic heart disease of native coronary artery without angina pectoris; I11.9 Hypertensive heart disease without heart failure; E66.9 Obesity, unspecified; Z68.42 Body mass index [BMI] 45.0-49.9, adult; I27.20 Pulmonary hypertension, unspecified; J44.9 Chronic obstructive pulmonary disease, unspecified; Z87.891 Personal history of nicotine dependence; Z79.82 Long term (current) use of aspirin; Z79.1 Long term (current) use of non-steroidal anti-inflammatories (NSAID); Z79.899 Other long term (current) drug therapy; Z88.8 Allergy status to other drugs, medicaments and biological substances
CPT/HCPCS: 33208; 71046; C1892; C1769 ×2; C1777; C1898; C1785; J2250; J1940; J0690 ×3; J2001; J3010; J0131; J2704; Q9966

== ENCOUNTER → 2018-03-15 | Outpatient (CLI) | payer MEDICARE ==
[2018-03-15 09:37] LABS: HGB 15.9 gm/dL (13.0-17.5); Hypochromasia Slight; MCH 29.6 pg (25.0-35.0); MCHC 31.9 g/dL (31.0-37.0); MCV 92.9 fL (80.0-100.0); Mean Platelet Volume 6.8; Platelet Count 235 k/uL (150-450); RBC 5.39 m/uL (4.30-5.90); RDW 15.6 % (11.5-15.5); WBC 6.8 k/uL (3.8-10.6)
[2018-03-15 09:46] LABS: Anion Gap 6 mmol/L; Blood Urea Nitrogen 17 mg/dL (9-20); Carbon Dioxide 32 mmol/L (22-30); Chloride 102 mmol/L (98-107); Potassium 4.5 mmol/L (3.5-5.1); Sodium 140 mmol/L (137-145)
== END | disposition home or self-care (01) ==
LOC: LABPAT 08:26
PROVIDERS: ATTEND Internal Medicine Interventional Cardiology
DX: Z01.812 Encounter for preprocedural laboratory examination (principal); I25.10 Atherosclerotic heart disease of native coronary artery without angina pectoris; E78.2 Mixed hyperlipidemia; I10 Essential (primary) hypertension
CPT/HCPCS: 36415; 80051; 82565; 84520; 85027

== ENCOUNTER 2018-03-26 09:49 | Day surgery (SDC) | payer MEDICARE ==
[2018-03-23 12:10] VITALS: BMI 45.0
[~2018-03-26 09:49] MED LIST changes: -SODIUM CHLORIDE 0.9% 1,000 ML IV SCH; -ceFAZolin 1,000 MG in SODIUM CHLORIDE 0.9% IRRIGATIO 250 ML IRRIGATION ONE; -ceFAZolin IN SWFI 2 GM/20 ML SYRINGE IVP ONE
[2018-03-26] MEDS ORDERED: MIDAZOLAM 2 MG/2 ML VIAL IVP ONE (11:43)
[2018-03-26] MEDS ORDERED: LIDOCAINE 1% INJ 10MG/ML (20 ML MDV) SQ ONE (11:44)
[2018-03-26] MEDS ORDERED: VERAPAMIL SYRINGE (5 MG/10 ML) INTRAARTER ONE (11:46)
[2018-03-26] MEDS ORDERED: BIVALIRUDIN BOLUS 250 MG/50 ML IV ONE (12:06)
[2018-03-26] MEDS ORDERED: BIVALIRUDIN 250 MG in SODIUM CHLORIDE 0.9% 50 ML IV ONE ×3 (12:08→13:29)
[2018-03-26] MEDS ORDERED: IOPAMIDOL-370 125ML BTL INJ ONE (12:22)
[2018-03-26] MEDS: MIDAZOLAM 2 MG/2 ML VIAL IVP ONE ×2 (12:35→13:41)
[2018-03-26] MEDS: fentaNYL (PF) 50 MCG/ML 2 ML AMP IVP ONE ×2 (12:46→13:42)
[2018-03-26] MEDS: NITROGLYCERIN 1000MCG/10ML SYRINGE INTRACORON ONE ×3 (12:57→14:29)
[2018-03-26] MEDS ORDERED: niCARdipine Syringe (1,000 mcg/10 mL) INTRACORON ONE (13:01)
[2018-03-26] MEDS ORDERED: MORPHINE SULFATE 4 MG/ML SYRINGE IVP ONE (13:01)
[2018-03-26] MEDS ORDERED: TICAGRELOR 90 MG TAB PO ONE (14:33)
[2018-03-26] MEDS ORDERED: IOPAMIDOL-370 100ML BTL INJ ONE (14:33)
[2018-03-26] MEDS ORDERED: ATROPINE SULFATE 0.1 MG/ML 10ML SYRINGE IV PRN (14:38)
[2018-03-26] MEDS ORDERED: RX INFO: IV CONTRAST WAS GIVEN 1 EACH MISC MISCELLANE PRN (14:38)
[2018-03-26] MEDS ORDERED: MAG HYDROX/AL HYDROX/SIMETH 30 ML CUP PO PRN (14:38)
[2018-03-26] MEDS ORDERED: NITROGLYCERIN SL TABS 0.4 MG TAB SUBLINGUAL PRN (14:38)
[2018-03-26] MEDS ORDERED: ZOLPIDEM 5 MG TAB PO PRN (14:38)
[2018-03-26] MEDS ORDERED: SODIUM CHLORIDE 0.9% 1,000 ML IV SCH (14:45)
[2018-03-26 14:57] VITALS: RESP 18
[2018-03-26] MEDS: APIXABAN 5 MG TAB PO SCH (22:16)
[2018-03-26] MEDS: MELOXICAM 7.5 MG TAB PO SCH (22:16)
[2018-03-26] MEDS: TICAGRELOR 90 MG TAB PO SCH (22:16)
[2018-03-27 06:41] LABS: Basophils % (A) 1 %; Eosinophils # (A) 0.4 k/uL (0-0.7); Eosinophils % (A) 6 %; HCT 46.2 % (39.0-53.0); HGB 14.8 gm/dL (13.0-17.5); Hypochromasia Slight; Lymphocytes # (A) 1.6 k/uL (1.0-4.8); Lymphocytes % (A) 26 %; MCH 29.9 pg (25.0-35.0); MCV 93.3 fL (80.0-100.0); Mean Platelet Volume 7.2; Monocytes # (A) 0.4 k/uL (0-1.0); Monocytes % (A) 7 %; Neutrophils # (A) 3.6 k/uL (1.3-7.7); Neutrophils % (A) 59 %; Platelet Count 207 k/uL (150-450); RBC 4.95 m/uL (4.30-5.90); RDW 15.3 % (11.5-15.5)
[2018-03-27 06:47] LABS: Anion Gap 5 mmol/L; Blood Urea Nitrogen 15 mg/dL (9-20); Calcium 8.7 mg/dL (8.4-10.2); Carbon Dioxide 31 mmol/L (22-30); Chloride 106 mmol/L (98-107); Glucose 99 mg/dL (74-99); Potassium 4.2 mmol/L (3.5-5.1); Sodium 142 mmol/L (137-145)
[2018-03-27] MEDS: MELOXICAM 7.5 MG TAB PO SCH (07:52)
[2018-03-27] MEDS: TICAGRELOR 90 MG TAB PO SCH (07:53)
[2018-03-27] MEDS: APIXABAN 5 MG TAB PO SCH (07:53)
[2018-03-27 07:56] VITALS: BP 146/69; PULSE 64; TEMP 97.9
[2018-03-27] MEDS ORDERED: FUROSEMIDE 20 MG TAB PO SCH (09:00)
[2018-03-27] MEDS ORDERED: MULTIVITAMINS, THERA 1 EACH TAB PO SCH (09:00)
[2018-03-27] MEDS ORDERED: amLODIPine 10 MG TAB PO SCH (09:00)
[2018-03-27] MEDS ORDERED: TAMSULOSIN 0.4 MG CAP.ER.24H PO SCH (09:00)
[2018-03-27] MEDS ORDERED: CHOLECALCIFEROL 1,000 UNIT TAB PO SCH (09:00)
[2018-03-27] MEDS ORDERED: LISINOPRIL 20 MG TAB PO SCH (09:00)
[2018-03-28] MEDS ORDERED: ASPIRIN 81 MG PO SCH (09:00)
--- NOTE | 2018-03-28 23:30 | CC ---
CARDIAC CATHETERIZATION REPORT DATE OF SERVICE: March 26, 2018 PERFORMING PHYSICIAN: Oleg Summers MD, clamshell engineer. PROCEDURE PERFORMED: 1. Selective right and left coronary angiogram. 2. Successful stenting of the mid RCA using 2.0 x 15 and 2.0 x 8 mm [place] drug-eluting stent with good angiographic results and reduction of stenosis from 90% to 20% and without any complication. INDICATION: This is a pleasant 77-year-old gentleman who has known history of coronary artery disease and prior stenting of the distal LAD, was experiencing exertional dyspnea concerning for angina equivalent. Because of that, a heart catheterization was advised. APPROACH: Right radial artery. COMPLICATION: None. LEVEL OF SEDATION: Moderate with sedation length of 3 hours and 15 minutes. PROCEDURE DESCRIPTION: After obtaining an informed consent, the patient was brought to the cardiac laboratory animal caretaker. The right radial artery was cannulated using micropuncture technique, the micropuncture wire passed easily. Then I placed a 6-German sheath in the right radial artery. After that I gave the patient 2 mg of verapamil IA. Subsequently I did selective right and left coronary angiogram using JR4 and JL3.5 catheters. After that, I decided to intervene on the RCA. Please see a separate paragraph for that. SELECTIVE CORONARY ANGIOGRAM: 1. The RCA is a large caliber vessel, a tortuous vessel, and calcified vessel as well. The RCA has a very tight lesion in the midportion appeared to be in the range of 80% by a tortuous segment as well as a lesion distally appeared to be in the range of 70%. 2. The left main appeared to have mild disease only. It bifurcates into the left circumflex and left anterior descending artery. 3. The left circumflex is a large caliber vessel. It is a nondominant vessel. The left circumflex has mild disease only. 4. The LAD: The LAD overall is a large caliber vessel and does not reach the apex. The LAD distally is stented with in-stent restenosis appeared to be in the range of 70%. PCI OF THE RCA: Anticoagulation was initiated using Angiomax. Subsequently I took a JR4 guide and the RCA was engaged. A whisper wire was used to wire the right coronary artery. I tried to advance a balloon to the mid RCA to balloon the RCA in the midportion, but the balloon will not make the turn in the proximal to mid RCA. Because of that, I decided to wire the RCA using a latasha wire with a run-through wire. With the latasha wire I was able to advance the balloon to the mid RCA, but no stent will cross the proximal to mid segment of the RCA. I did exchange my wire into an Iron Man and in spite of that, I was unable to advance the stent. I tried a GuideLiner and the GuideLiner will not cross also the proximal to mid RCA segment where that segment is quite tortuous. After that, I tried using the [place] drug-eluting stent and I was unable. Because of that, I did leave the Ironman in place and I did wire the RCA using a whisper wire. Through the whisper wire and after multiple attempts, I was finally able to get to stent to the mid RCA. The 1st stent was 2.0 x 12 mm and the second stent was 2.0 x 8 mm stent. I did overlap the 2 stents together. The following angiogram showed good angiographic results with collection of stenosis from 70% to 0%. There was another lesion in the distal RCA, we need to keep our eye on it. CONCLUSION: 1. Critical disease involving the mid RCA and severe disease involving the distal RCA. 2. Severe disease involving the distal LAD. 3. Successful stenting of the mid RCA as described above. POSTPROCEDURE MANAGEMENT: 1. Maximize medical treatment. 2. Follow up with the patient. ANISH / TROYN: [id number] /
--- NOTE | 2018-03-29 00:51 | DS ---
DISCHARGE SUMMARY ADMISSION DATE: 03/26/2018. DISCHARGE DATE: 03/27/2018. BRIEF HISTORY: This is a very pleasant 77-year-old gentleman with known history of coronary artery disease, who was experiencing exertional dyspnea concerning for angina equivalent. He underwent heart catheterization and was found to have critical disease involving the mid and distal right coronary artery. The patient underwent successful stenting of the mid RCA with a complex and long procedure, lasted for about 3-1/2 hours. By the end, we got good angiographic results of the mid RCA with possible dissection involving the distal RCA, but the dissection is not flow limiting. On follow up with the patient today, the patient was asymptomatic. He denies having any chest pain or discomfort or shortness of breath. The right groin is soft and nontender and without any bruises. The patient is going to be discharged home on dual anti-platelet therapy and I will follow up with the patient next week in the office. MMODL / TROYN: [id number] /
== END 2018-03-27 10:08 | disposition home or self-care (01) ==
LOC: CATHCVL 09:49 → 6SEL 14:33 → CATHCVL 03-27 10:08
PROVIDERS: ATTEND Internal Medicine Interventional Cardiology
DX: I25.110 Atherosclerotic heart disease of native coronary artery with unstable angina pectoris (principal); I48.0 Paroxysmal atrial fibrillation; E78.2 Mixed hyperlipidemia; I11.9 Hypertensive heart disease without heart failure; J44.9 Chronic obstructive pulmonary disease, unspecified; Z79.82 Long term (current) use of aspirin; Z79.1 Long term (current) use of non-steroidal anti-inflammatories (NSAID); Z79.899 Other long term (current) drug therapy; Z88.8 Allergy status to other drugs, medicaments and biological substances
CPT/HCPCS: 93454; 80048; 85025; C9600; C1769 ×5; C1887 ×3; C1725 ×4; C1874 ×2; C1894; J2250; J2270; J2001; J3010; J0583; Q9967 ×2

== ENCOUNTER 2018-03-29 03:38 | Inpatient (IN) | payer MEDICARE ==
[2018-03-29 04:28] LABS: Basophils % (A) 1 %; Eosinophils # (A) 0.4 k/uL (0-0.7); Eosinophils % (A) 7 %; HCT 48.3 % (39.0-53.0); HGB 15.8 gm/dL (13.0-17.5); Lymphocytes # (A) 1.4 k/uL (1.0-4.8); Lymphocytes % (A) 23 %; MCHC 32.8 g/dL (31.0-37.0); MCV 91.5 fL (80.0-100.0); Mean Platelet Volume 7.2; Monocytes # (A) 0.4 k/uL (0-1.0); Monocytes % (A) 6 %; Neutrophils # (A) 3.6 k/uL (1.3-7.7); Neutrophils % (A) 60 %; Platelet Count 233 k/uL (150-450); RBC 5.27 m/uL (4.30-5.90); RDW 15.4 % (11.5-15.5)
[2018-03-29 04:38] LABS: Anion Gap 8 mmol/L; Calcium 8.9 mg/dL (8.4-10.2); Carbon Dioxide 27 mmol/L (22-30); Chloride 104 mmol/L (98-107); Glucose 119 mg/dL (74-99); Sodium 139 mmol/L (137-145); Total Bilirubin 1.2 mg/dL (0.2-1.3)
--- NOTE | 2018-03-29 04:38 | ED ---
Chest Pain HPI - General Chief Complaint: Chest Pain Stated Complaint: CHEST PAIN Time Seen by Provider: 03/29/18 03:43 Source: patient Mode of arrival: ambulatory Limitations: no limitations - History of Present Illness Initial Comments: This patient is a 77-year-old man who presents to be evaluated for chest pain. His recent history includes having had pacemaker placement on February 23 for symptomatically bradycardia as well as atrial fibrillation. The patient then underwent cardiac catheterization and had 2 stents placed in the distal RCA on March 26. The patient developed chest pain, see the section below. No other anginal symptoms. MD Complaint: chest pain Onset/Timin -: hour(s) Onset: during rest Pain Location: substernal Pain Radiation: none Severity: moderate Quality: heaviness Consistency: constant Improves With: nothing Worsens With: nothing Treatments Prior to Arrival: none - Related Data Home Medications Medication Instructions Recorded Confirmed Aspirin 81 mg PO Q48H 11/27/16 03/29/18 Meloxicam [Mobic] 7.5 mg PO BID 11/27/16 03/29/18 Multivitamins, Thera [Multivitamin 1 tab PO DAILY 11/27/16 03/29/18 (formulary)] amLODIPine BESYLATE/BENAZEPRIL 1 cap PO DAILY 11/27/16 03/29/18 [Lotrel 10-20 mg Capsule] Cholecalciferol (Vitamin D3) 2,000 unit PO DAILY 02/19/18 03/29/18 [Vitamin D3] Furosemide [Lasix] 20 mg PO DAILY 02/19/18 03/29/18 Tamsulosin [Flomax] 0.4 mg PO DAILY 02/19/18 03/29/18 Previous Rx's Medication Instructions Recorded Apixaban [Eliquis] 2.5 mg PO BID #60 tab 03/27/18 Ticagrelor [Brilinta] 90 mg PO BID #30 tab 03/27/18 Allergies Allergy/AdvReac Type Severity Reaction Status Date / Time Wdbrsub-Cgn-Rrh Reductase AdvReac MUSCLE PAIN Verified 03/29/18 03:50 Inhibitor Review of Systems ROS Statement: Those systems with pertinent positive or pertinent negative responses have been documented in the HPI. ROS Other: All systems not noted in ROS Statement are negative. Constitutional: Denies: fever, chills Respiratory: Denies: cough, dyspnea Cardiovascular: Reports: chest pain. Denies: palpitations, edema, syncope Gastrointestinal: Denies: abdominal pain, nausea, vomiting Genitourinary: Denies: dysuria, hematuria Musculoskeletal: Denies: back pain Skin: Denies: rash Neurological: Denies: headache, weakness, numbness EKG Findings - EKG Results: EKG: interpreted by FRANKD EKG shows: atrial fibrillation (Rate is proximal 71 bpm) - Blocks, Gary, Hypertrophy, ST Abn: QRS axis and voltage: left axis deviation (-30 to -90) Past Medical History Past Medical History: Coronary Artery Disease (CAD), Hypertension, Osteoarthritis (OA), Prostate Disorder History of Any Multi-Drug Resistant Organisms: None Reported Past Surgical History: Heart Catheterization With Stent, Joint Replacement, Orthopedic Surgery Additional Past Surgical History / Comment(s): BILAT TKA. BILAT KNEE SX. COLONOSCOPY. BILAT CATARACTS REMOVED Past Anesthesia/Blood Transfusion Reactions: Motion Sickness Date of Last Stent Placement:: 2000 Past Psychological History: No Psychological Hx Reported Smoking Status: Former smoker Past Alcohol Use History: None Reported Past Drug Use History: None Reported - Past Family History Sister(s) Family Medical History: Cancer Brother(s) Family Medical History: Cancer General Exam Limitations: no limitations General appearance: alert, in no apparent distress Head exam: Present: atraumatic, normocephalic Eye exam: Present: normal appearance. Absent: scleral icterus, conjunctival injection ENT exam: Present: normal oropharynx Neck exam: Present: normal inspection Respiratory exam: Present: rales (Bilateral bases). Absent: normal lung sounds bilaterally, respiratory distress, wheezes, rhonchi, stridor Cardiovascular Exam: Present: regular rate, irregular rhythm, normal heart sounds. Absent: systolic murmur, diastolic murmur, rubs, gallop GI/Abdominal exam: Present: soft. Absent: distended, tenderness, guarding, rebound, mass Extremities exam: Present: normal inspection, normal capillary refill, pedal edema. Absent: calf tenderness Back exam: Present: normal inspection. Absent: CVA tenderness (R), CVA tenderness (L) Neurological exam: Present: alert Skin exam: Present: warm, dry, intact, normal color. Absent: rash Course Vital Signs 03/29/18 03/29/18 03/29/18 03:46 03:59 04:37 Temperature 97.6 F Pulse Rate 121 H 71 76 Respiratory 25 H 18 18 Rate Blood Pressure 156/73 161/66 141/61 O2 Sat by Pulse 88 L 92 L 94 L Oximetry 03/29/18 03/29/18 04:56 06:08 Temperature Pulse Rate 67 65 Respiratory 18 18 Rate Blood Pressure 151/69 117/66 O2 Sat by Pulse 93 L 97 Oximetry Chest Pain MDM - MDM Patient is 77-year-old man with recent stenting. He did have resolution of his symptoms with one nitroglycerin here. The patient will be admitted to be seen by cardiology. I did discuss case with Dr. Landrum who is on-call. He remains symptom free through his course in emergency department. Disposition Clinical Impression: Chest pain, Elevated troponin Disposition: ADMITTED IP TO THIS HOSP Condition: Fair Is patient prescribed a controlled substance at d/c from ED?: No
[2018-03-29 04:40] LABS: INR 1.5 (<1.2); Partial Thromboplastin Time 23.4 sec (22.0-30.0); Prothrombin Time 13.9 sec (9.0-12.0)
[2018-03-29] MEDS ORDERED: NITROGLYCERIN SL TABS 0.4 MG TAB SUBLINGUAL STA (04:44)
--- NOTE | 2018-03-29 04:47 | XR ---
EXAM: XR Chest, 1 View CLINICAL HISTORY: ITS.REASON XR Reason: chest pain TECHNIQUE: Frontal view of the chest. COMPARISON: 02/24/18 chest x-ray IMPRESSION: Cardiomegaly. Multiple bilateral nodules are again identified, a chest CT may be suggested. Increased interstitial markings may represent foreign or edema.
[2018-03-29 05:19] LABS: ALT 26 U/L (21-72); AST 49 U/L (17-59); Albumin 3.8 g/dL (3.5-5.0); Alkaline Phosphatase 62 U/L (38-126); Blood Urea Nitrogen 19 mg/dL (9-20); Potassium 5.5 mmol/L (3.5-5.1); Total Protein 6.4 g/dL (6.3-8.2)
[2018-03-29 06:35] LABS: Creatine Kinase MB 0.8 ng/mL (0.0-2.4)
[2018-03-29] MEDS ORDERED: NITROGLYCERIN SL TABS 0.4 MG TAB SUBLINGUAL PRN (07:02)
[2018-03-29] MEDS ORDERED: HEPARIN SODIUM,PORCINE 5,000 UNIT/ML 1 ML VIAL IV PRN (07:02)
[2018-03-29] MEDS ORDERED: HEPARIN SODIUM,PORCINE 5,000 UNIT/ML 1 ML VIAL IV ONE (07:02)
[2018-03-29] MEDS ORDERED: ASPIRIN 81 MG PO STA (07:09)
[2018-03-29] MEDS: SODIUM CHLORIDE 0.9% 1,000 ML IV SCH ×2 (07:51→17:29)
[2018-03-29] MEDS: HEPARIN SOD,PORK IN 0.45% NACL 25,000 UNIT in 0.45% NACL 1 500ML.BAG IV SCH (07:52)
--- NOTE | 2018-03-29 08:36 | P.CRDCN ---
History of Present Illness Consult date: 03/29/18 History of present illness: This is a 77-year-old gentleman with history of chronic atrial fibrillation, sick sinus syndrome status post permanent pacemaker implantation. Patient also has history of ischemic heart disease and had stent placement of the LAD. Recently patient had stent placement of the mid RCA. Around 2:00 last night patient woke up with a tight feeling across the chest. This was not associated with any nausea, vomiting or sweating. His EKGs did not reveal any acute changes. 1 troponin is abnormal in the range of 0.125. His pains were promptly relieved with sublingual nitroglycerin. In view of his known ischemic heart disease and recent stent placement, we may consider repeat cardiac catheterization. I will speak with Dr. Candelario for possible arrangements for cath. Meanwhile we'll continue with medical therapy including nitrates, beta blockers and anticoagulants Review of Systems REVIEW OF SYSTEMS: CONSTITUTIONAL:. Patient is doing well. No complaints of fever or chills EYES: Denies diplopia, blurring of vision EARS, NOSE, MOUTH, THROAT: Denies headaches, denies sore throat. CARDIOVASCULAR: As per HPI RESPIRATORY: Denies shortness of breath, denies cough. GASTROINTESTINAL: Denies change in appetite, denies abdominal pain, denies diarrhea GENITOURINARY: Denies hematuria, denies infections. MUSKULOSKELETAL: Denies pain, denies swelling. Denies any cramps or claudication INTEGUMENTARY: Denies rash, denies eczema. NEUROLOGICAL: Denies focal weakness, or visual disturbance. Denies any dizziness or syncope PSYCHIATRIC: Denies anxiety, denies depression. HEMATOLOGIC/LYMPHATIC: Denies any bleeding, denies enlarged lymph nodes. 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 History of Any Multi-Drug Resistant Organisms: None Reported Past Surgical History: Heart Catheterization With Stent, Joint Replacement, Orthopedic Surgery, Pacemaker Additional Past Surgical History / Comment(s): 03/26/18 PCI with stent in RCA, dual chamber permanent pacer, 2001 PCI with stent, bilateral total knees, post R TKA pt had surgery for ligament tear, post L TKA pt had infection-had polyplexus exchange, bilateral lung biopsies at [facility]. Past Anesthesia/Blood Transfusion Reactions: Motion Sickness Date of Last Stent Placement:: 03/26/18 Type of Cardiac Device: Permanent Pacemaker Device Placement Date:: 02/23/18 Smoking Status: Former smoker - Past Family History Sister(s) Family Medical History: Cancer Additional Family Medical History / Comment(s): Sister from brain cancer. Brother(s) Family Medical History: Cancer, Myocardial Infarction ([place]) Additional Family Medical History / Comment(s): Pt had one brother of brain cancer, another brother of a [place] at the age of 71yrs and another brother of a [place] in his early 50s. Father Family Medical History: Coronary Artery Disease (CAD), CVA/TIA, Myocardial Infarction ([place]) Additional Family Medical History / Comment(s): Father had TIAs and MIs. He between the ages of 62-68yrs from what pt believes was a [place] Mother Family Medical History: Myocardial Infarction ([place]) Additional Family Medical History / Comment(s): Mother of a [place] at the age of 88yrs. Medications and Allergies Home Medications Medication Instructions Recorded Confirmed Type Aspirin 81 mg PO Q48H 11/27/16 03/29/18 History Meloxicam [Mobic] 7.5 mg PO BID 11/27/16 03/29/18 History Multivitamins, Thera [Multivitamin 1 tab PO DAILY 11/27/16 03/29/18 History (formulary)] amLODIPine BESYLATE/BENAZEPRIL 1 cap PO DAILY 11/27/16 03/29/18 History [Lotrel 10-20 mg Capsule] Cholecalciferol (Vitamin D3) 2,000 unit PO DAILY 02/19/18 03/29/18 History [Vitamin D3] Furosemide [Lasix] 20 mg PO DAILY 02/19/18 03/29/18 History Tamsulosin [Flomax] 0.4 mg PO DAILY 02/19/18 03/29/18 History Apixaban [Eliquis] 2.5 mg PO BID #60 tab 03/27/18 03/29/18 Rx Allergies Allergy/AdvReac Type Severity Reaction Status Date / Time [id number]-Ytk-Nss Reductase AdvReac MUSCLE PAIN Verified 03/29/18 08:00 Inhibitor Physical Exam Vitals: Vital Signs Temp Pulse Resp BP Pulse Ox 03/29/18 07:57 71 18 149/81 93 L 03/29/18 06:08 65 18 117/66 97 03/29/18 04:56 67 18 151/69 93 L 03/29/18 04:37 76 18 141/61 94 L 03/29/18 03:59 71 18 161/66 92 L 03/29/18 03:46 97.6 F 121 H 25 H 156/73 88 L Intake and Output 03/28/18 03/29/18 03/29/18 22:59 06:59 14:59 Other: Weight 150.593 kg GENERAL EXAM: Patient is alert and oriented and doesn't appear to be in any acute distress HEENT: Normocephalic. Normal reaction of pupils, equal size, normal range of extraocular motion. No erythema or exudates in the throat. NECK: No masses, no nuchal rigidity. CHEST: No chest wall deformity. LUNGS: Equal air entry with no crackles or wheeze. HEART: S1 and S2 normal with no audible mumurs or gallops. Regular rhythm, femorals equal on both sides.. ABDOMEN: No hepatosplenomegaly, normal bowel sounds, no guarding or rigidity. SKIN: No rashes CENTRAL NERVOUS SYSTEM: No focal deficits. EXTREMITIES: No cyanosis, clubbing or edema. Results 03/29/18 03:56 03/29/18 03:56 Cardiac Enzymes 03/29/18 03/29/18 03/29/18 Range/Units 03:56 03:56 05:55 AST 49 (17-59) U/L CK-MB (CK-2) 0.8 (0.0-2.4) ng/mL Troponin I Cancelled 0.127 H* Coagulation 03/29/18 Range/Units 03:56 PT 13.9 H (9.0-12.0) sec APTT 23.4 (22.0-30.0) sec CBC 03/29/18 Range/Units 03:56 WBC 6.0 (3.8-10.6) k/uL RBC 5.27 (4.30-5.90) m/uL Hgb 15.8 (13.0-17.5) gm/dL Hct 48.3 (39.0-53.0) % Plt Count 233 (150-450) k/uL Comprehensive Metabolic Panel 03/29/18 Range/Units 03:56 Sodium 139 (137-145) mmol/L Potassium 5.5 H (3.5-5.1) mmol/L Chloride 104 (98-107) mmol/L Carbon Dioxide 27 (22-30) mmol/L BUN 19 (9-20) mg/dL Creatinine 0.64 L (0.66-1.25) mg/dL Glucose 119 H (74-99) mg/dL Calcium 8.9 (8.4-10.2) mg/dL AST 49 (17-59) U/L ALT 26 (21-72) U/L Alkaline Phosphatase 62 (38-126) U/L Total Protein 6.4 (6.3-8.2) g/dL Albumin 3.8 (3.5-5.0) g/dL Current Medications Generic Name Dose Route Start Last Admin Trade Name Freq PRN Reason Stop Dose Admin Aspirin 325 mg 03/30/18 09:00 Aspirin PO DAILY FITO Heparin Sodium (Porcine) 0 unit 03/29/18 07:02 Heparin IV Q6HR PRN Low PTT Protocol Sodium Chloride 1,000 mls @ 100 mls/hr 03/29/18 07:15 03/29/18 07:51 Saline 0.9% IV 100 mls/hr .Q10H FITO Administration Heparin Sodium/Sodium Chloride 500 mls @ 20.17 mls/hr 03/29/18 07:45 07:52 25,000 unit/ Sodium Chloride IV 6.7 units/kg/hr .Q24H FITO 20.17 mls/hr Administration Protocol 6.7 UNITS/KG/HR Nitroglycerin 0.4 mg 03/29/18 07:02 Nitrostat SUBLINGUAL Q5M PRN Chest Pain Intake and Output 03/28/18 03/29/18 03/29/18 22:59 06:59 14:59 Other: Weight 150.593 kg 03/29/18 03:56 03/29/18 03:56 EKG Interpretations (text) Atrial fibrillation with intermittent ventricular pacing Assessment and Plan (1) Unstable angina Current Visit: Yes Status: Acute Code(s): I20.0 - UNSTABLE ANGINA SNOMED Code(s): 0063993 (2) CAD in [place] artery Current Visit: Yes Status: Acute Code(s): I25.10 - ATHSCL HEART DISEASE OF [place] CORONARY ARTERY W/O ANG PCTRS SNOMED Code(s): 9016821143907 (3) Chronic atrial fibrillation Current Visit: Yes Status: Acute Code(s): I48.2 - CHRONIC ATRIAL FIBRILLATION SNOMED Code(s): 382696872 (4) Presence of permanent cardiac pacemaker Current Visit: Yes Status: Acute Code(s): Z95.0 - PRESENCE OF CARDIAC PACEMAKER SNOMED Code(s): 334462900 Plan: I'll continue current medical therapy. I'll discuss with Dr. Candelario for possible cardiac catheterization. Patient is on Eliquis. May consider cardiac cath within 24 hours
[2018-03-29] MEDS ORDERED: AMLODIPINE BESYLATE PO SCH (09:00)
[2018-03-29] MEDS ORDERED: BENAZEPRIL PO SCH (09:00)
[2018-03-29] MEDS ORDERED: SODIUM CHLORIDE 0.9% 1,000 ML in EMPTY BAG 1 BAG IV ONE (09:52)
[2018-03-29] MEDS ORDERED: ALPRAZolam 0.25 MG TAB PO PRN (09:52)
[2018-03-29] MEDS ORDERED: ALPRAZolam 0.5 MG TAB PO PRN (09:52)
[2018-03-29] MEDS: LISINOPRIL 20 MG TAB PO SCH (11:07)
[2018-03-29] MEDS: FUROSEMIDE 20 MG TAB PO SCH (11:07)
[2018-03-29] MEDS: amLODIPine 10 MG TAB PO SCH (11:10)
[2018-03-29 13:05] LABS: Creatine Kinase MB 1.1 ng/mL (0.0-2.4)
[2018-03-29 13:10] LABS: Troponin I 0.245 ng/mL (0.000-0.034)
--- NOTE | 2018-03-29 15:10 | P.HPIM ---
History of Present Illness H&P Date: 03/29/18 Chief Complaint: Chest pain Patient is 77-year-old male with a known history of coronary artery disease with cardiac catheterization on 03/26/2018 with stent placement to RCA and also history of stent placement of the LAD came to ER with complaints of mid retrosternal chest pain started around 2 AM last night. Patient woke up with tightness across the chest. Denied any radiation. Not associated with nausea vomiting or diaphoresis. Patient was brought to the hospital by his . No fever no chills. No cough or sputum production. Patient currently denied any complaints of chest pain. Patient has a history of atrial fibrillation on oral anticoagulation, hypertension, hyperlipidemia, COPD, osteoarthritis, history of permanent dual- chamber pacemaker placement and morbid obesity. EKG showed no ST-T wave changes or elevation. Normal sinus rhythm Troponin 0.127 and 0.245 Currently patient is on heparin drip. Review of Systems Constitutional: Patient denies any fever or chills . No generalized weakness or weight loss. Abdomen: Patient denied nausea vomiting and diarrhea and abdominal pain. Cardiovascular: Patient denies any chest pain or short of breath no palpitations. Respiratory: patient denied any cough is from production. No shortness of breath Neurologic: Patient denied any numbness or tingling headache. Musculoskeletal: Patient denies any complaints of joint swelling or deformity. Skin: Negative Psychiatric: Negative Endocrine: No heat or cold intolerance. No recent weight gain. Genitourinary: No dysuria or hematuria. 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 History of Any Multi-Drug Resistant Organisms: None Reported Past Surgical History: Heart Catheterization With Stent, Joint Replacement, Orthopedic Surgery, Pacemaker Additional Past Surgical History / Comment(s): 03/26/18 PCI with stent in RCA, dual chamber permanent pacer, 2001 PCI with stent, bilateral total knees, post R TKA pt had surgery for ligament tear, post L TKA pt had infection-had polyplexus exchange, bilateral lung biopsies at [facility]. Past Anesthesia/Blood Transfusion Reactions: Motion Sickness Date of Last Stent Placement:: 03/26/18 Type of Cardiac Device: Permanent Pacemaker Device Placement Date:: 02/23/18 Smoking Status: Former smoker - Past Family History Sister(s) Family Medical History: Cancer Additional Family Medical History / Comment(s): Sister from brain cancer. Brother(s) Family Medical History: Cancer, Myocardial Infarction (MD) Additional Family Medical History / Comment(s): Pt had one brother of brain cancer, another brother of a MD at the age of 71yrs and another brother of a MD in his early 50s. Father Family Medical History: Coronary Artery Disease (CAD), CVA/TIA, Myocardial Infarction (MD) Additional Family Medical History / Comment(s): Father had TIAs and MIs. He between the ages of 62-68yrs from what pt believes was a MD Mother Family Medical History: Myocardial Infarction (MD) Additional Family Medical History / Comment(s): Mother of a MD at the age of 88yrs. Medications and Allergies Home Medications Medication Instructions Recorded Confirmed Type Aspirin 81 mg PO Q48H 11/27/16 03/29/18 History Meloxicam [Mobic] 7.5 mg PO BID 11/27/16 03/29/18 History Multivitamins, Thera [Multivitamin 1 tab PO DAILY 11/27/16 03/29/18 History (formulary)] amLODIPine BESYLATE/BENAZEPRIL 1 cap PO DAILY 11/27/16 03/29/18 History [Lotrel 10-20 mg Capsule] Cholecalciferol (Vitamin D3) 2,000 unit PO DAILY 02/19/18 03/29/18 History [Vitamin D3] Furosemide [Lasix] 20 mg PO DAILY 02/19/18 03/29/18 History Tamsulosin [Flomax] 0.4 mg PO DAILY 02/19/18 03/29/18 History Apixaban [Eliquis] 2.5 mg PO BID #60 tab 03/27/18 03/29/18 Rx Allergies Allergy/AdvReac Type Severity Reaction Status Date / Time Joklytq-[id number]-Xqe Reductase AdvReac MUSCLE PAIN Verified 03/29/18 08:00 Inhibitor Physical Exam Vitals: Vital Signs Temp Pulse Pulse Resp BP BP Pulse Ox 03/29/18 11:02 98.2 F 66 20 111/64 96 03/29/18 09:00 97.8 F 78 20 144/89 96 03/29/18 07:57 71 18 149/81 93 L 03/29/18 07:02 96 03/29/18 06:08 65 18 117/66 97 03/29/18 04:56 67 18 151/69 93 L 03/29/18 04:37 76 18 141/61 94 L 03/29/18 03:59 71 18 161/66 92 L 03/29/18 03:46 97.6 F 121 H 25 H 156/73 88 L Intake and Output 03/28/18 03/29/18 03/29/18 22:59 06:59 14:59 Intake Total 320.17 Output Total 300 Balance 20.17 Intake: IV 120.17 Heparin Sod,Pork in 0.45% 20.17 NaCl 25,000 unit In 0.45 % NaCl 1 500ml.bag @ 6.7 UNITS/KG/HR 20.17 mls/hr IV .Q24H FITO Rx#: [id number] Sodium Chloride 0.9% 1, 100 000 ml @ 100 mls/hr IV . Q10H FITO Rx#:[id number] Oral 200 Output: Urine 300 Other: Voiding Method Urinal Weight 150.593 kg 150.8 kg PHYSICAL EXAMINATION: Patient is lying in the bed comfortably, no acute distress, awake alert and oriented.. HEENT: Normocephalic. Neck is supple. Pupils reactive. Nostrils clear. Oral cavity is moist. Ears reveal no drainage. Neck reveals no JVD, carotid bruits, or thyromegaly. CHEST EXAMINATION: Trachea is central. Symmetrical expansion. Lung devries clear to auscultation and percussion. CARDIAC: Normal S1, S2 with no gallops. No murmurs ABDOMEN: Soft. Bowel sounds normal. No organomegaly. No abdominal bruits. Extremities: reveal no edema. No clubbing or cyanosis Neurologically awake, alert, oriented x3 with well-coordinated movements. No focal deficits noted Skin: No rash or skin lesions. Psychiatric: Coperative. Nonsuicidal Musculoskeletal: No joint swelling or deformity. Normal range of motion. Results CBC & Chem 7: 03/29/18 03:56 03/29/18 13:37 Labs: Abnormal Lab Results - Last 24 Hours (Table) 03/29/18 03/29/18 03/29/18 Range/Units 03:56 03:56 03:56 PT 13.9 H (9.0-12.0) sec INR 1.5 H (<1.2) Potassium 5.5 H (3.5-5.1) mmol/L Creatinine 0.64 L (0.66-1.25) mg/dL Glucose 119 H (74-99) mg/dL Total Creatine Kinase 34 L (55-170) U/L Troponin I (0.000-0.034) ng/mL 03/29/18 Range/Units 05:55 PT (9.0-12.0) sec INR (<1.2) Potassium (3.5-5.1) mmol/L Creatinine (0.66-1.25) mg/dL Glucose (74-99) mg/dL Total Creatine Kinase (55-170) U/L Troponin I 0.127 H* (0.000-0.034) ng/mL Thrombosis Risk Factor Assmnt - DVT/VTE Prophylaxis DVT/VTE Prophylaxis: Pharmacologic Prophylaxis ordered - Choose All That Apply Any of the Below Risk Factors Present?: Yes Each Factor Represents 1 point: Abnormal pulmonary function (COPD), Obesity ( BMI >25), Serious lung disease incl. pneumonia (< 1month) Other Risk Factors: Yes Each Risk Factor Represents 3 Points: Age 75 years or older Other congenital or acquired thrombophilia - If yes, enter type in comment: No Thrombosis Risk Factor Assessment Total Risk Factor Score: 6 Thrombosis Risk Factor Assessment Level: High Risk Assessment and Plan Assessment: Chest pain with non-STEMI Recent PCI with stent placement to RCA on 03/26/2018 History of coronary artery disease with stent placement to LAD previously Chronic atrial fibrillation on oral anticoagulants. History of dual-chamber permanent pacemaker placement Hypertension X 10 hyperlipidemia Morbid obesity BMI 46.4 COPD stable History of smoking Osteoarthritis with bilateral knee replacements in the past DVT prophylaxis patient is already on heparin Plan: patient will be continued on telemetry monitoring. Serial EKGs and troponins and monitor closely. Cardiology is planning for catheterization tomorrow again. If the patient develops chest pain she may go for cardiac catheter patient tonight. Continue the current management and follow closely. Prognosis is guarded in this time. Time with Patient: Greater than 30
[2018-03-29 19:28] LABS: Creatine Kinase MB 1.5 ng/mL (0.0-2.4)
[2018-03-29 19:30] LABS: Troponin I 0.55 ng/mL (0.000-0.034)
[2018-03-29] MEDS: TICAGRELOR 90 MG TAB PO SCH (20:12)
[2018-03-30 02:16] LABS: Cholesterol 160 mg/dL (<200); HDL Cholesterol 34 mg/dL (40-60); LDL Cholesterol,Calculated 110 mg/dL (0-99); Triglycerides 82 mg/dL (<150)
[2018-03-30] MEDS: SODIUM CHLORIDE 0.9% 1,000 ML IV SCH (02:16)
[2018-03-30] MEDS ORDERED: ASPIRIN 325 MG TAB PO ONE (06:00)
[2018-03-30 06:03] LABS: Basophils % (A) 0 %; Eosinophils # (A) 0.5 k/uL (0-0.7); Eosinophils % (A) 8 %; HCT 48.6 % (39.0-53.0); Hypochromasia Slight; Lymphocytes # (A) 1.3 k/uL (1.0-4.8); Lymphocytes % (A) 22 %; MCH 28.9 pg (25.0-35.0); MCHC 30.8 g/dL (31.0-37.0); Mean Platelet Volume 6.9; Monocytes # (A) 0.3 k/uL (0-1.0); Monocytes % (A) 5 %; Neutrophils # (A) 3.7 k/uL (1.3-7.7); Neutrophils % (A) 62 %; Platelet Count 234 k/uL (150-450); RBC 5.17 m/uL (4.30-5.90); RDW 15.4 % (11.5-15.5); WBC 5.9 k/uL (3.8-10.6)
[2018-03-30 06:11] LABS: Sodium 139 mmol/L (137-145)
[2018-03-30 06:13] LABS: Anion Gap 5 mmol/L; Blood Urea Nitrogen 12 mg/dL (9-20); Calcium 8.7 mg/dL (8.4-10.2); Carbon Dioxide 27 mmol/L (22-30); Chloride 107 mmol/L (98-107); Glucose 106 mg/dL (74-99); Potassium 4.4 mmol/L (3.5-5.1)
[2018-03-30] MEDS: HEPARIN SOD,PORK IN 0.45% NACL 25,000 UNIT in 0.45% NACL 1 500ML.BAG IV SCH (06:26)
[2018-03-30] MEDS: LISINOPRIL 20 MG TAB PO SCH (08:01)
[2018-03-30] MEDS: ASPIRIN 81 MG PO SCH (08:01)
[2018-03-30] MEDS: amLODIPine 10 MG TAB PO SCH (08:01)
[2018-03-30] MEDS: TICAGRELOR 90 MG TAB PO SCH ×2 (08:02→20:12)
[2018-03-30] MEDS: FUROSEMIDE 20 MG TAB PO SCH (08:02)
[2018-03-30] MEDS ORDERED: ASPIRIN 325 MG TAB PO SCH (09:00)
[2018-03-30] MEDS ORDERED: MIDAZOLAM 2 MG/2 ML VIAL ONE (12:16)
[2018-03-30] MEDS ORDERED: LIDOCAINE 1% INJ 10MG/ML (20 ML MDV) ONE (12:16)
[2018-03-30] MEDS ORDERED: IV FLUID CONTINUATION 1,000 ML IV ONE (12:30)
[2018-03-30] MEDS ORDERED: MIDAZOLAM 2 MG/2 ML VIAL IV ONE (12:38)
[2018-03-30] MEDS ORDERED: LIDOCAINE 1% INJ 10MG/ML (20 ML MDV) SQ ONE (12:42)
[2018-03-30] MEDS ORDERED: BIVALIRUDIN 250 MG in SODIUM CHLORIDE 0.9% 50 ML IV ONE ×2 (13:02→13:30)
[2018-03-30] MEDS ORDERED: BIVALIRUDIN BOLUS 250 MG/50 ML IV ONE (13:02)
[2018-03-30] MEDS ORDERED: IOPAMIDOL-370 125ML BTL INJ ONE (13:30)
[2018-03-30] MEDS ORDERED: ATROPINE SULFATE 0.1 MG/ML 10ML SYRINGE IV PRN (14:04)
[2018-03-30] MEDS ORDERED: RX INFO: IV CONTRAST WAS GIVEN 1 EACH MISC MISCELLANE PRN (14:04)
[2018-03-30] MEDS ORDERED: MAG HYDROX/AL HYDROX/SIMETH 30 ML CUP PO PRN (14:04)
[2018-03-30] MEDS ORDERED: IOPAMIDOL-370 100ML BTL INJ ONE (14:04)
--- NOTE | 2018-03-30 15:02 | P.PN ---
Subjective Progress Note Date: 03/30/18 Progress note being dictated for Dr. Maldonado. Interval history:Patient is 77-year-old male with a known history of coronary artery disease with cardiac catheterization on 03/26/2018 with stent placement to RCA and also history of stent placement of the LAD came to ER with complaints of mid retrosternal chest pain started around 2 AM last night. Patient woke up with tightness across the chest. Denied any radiation. Not associated with nausea vomiting or diaphoresis. Patient was brought to the hospital by his . No fever no chills. No cough or sputum production. Patient currently denied any complaints of chest pain. Patient has a history of atrial fibrillation on oral anticoagulation, hypertension, hyperlipidemia, COPD, osteoarthritis, history of permanent dual- chamber pacemaker placement and morbid obesity. EKG showed no ST-T wave changes or elevation. Normal sinus rhythm Troponin 0.127 and 0.245 Currently patient is on heparin drip. Review of Systems Constitutional: Patient denies any fever or chills . No generalized weakness or weight loss. Abdomen: Patient denied nausea vomiting and diarrhea and abdominal pain. Cardiovascular: Patient denies any chest pain or short of breath no palpitations. Respiratory: patient denied any cough is from production. No shortness of breath Neurologic: Patient denied any numbness or tingling headache. Musculoskeletal: Patient denies any complaints of joint swelling or deformity. Skin: Negative Psychiatric: Negative Endocrine: No heat or cold intolerance. No recent weight gain. Genitourinary: No dysuria or hematuria. All other 14 point ROS negative except the above NPO, maintained on heparin drip. Troponin 0.127, 0.245, 0.550. Scheduled for cardiac catheterization this afternoon. Denies chest pain, palpitations or increased shortness of breath. Telemetry reporting the paste, A. fib/A flutter, controlled ventricular rate. Objective - Vital Signs Vital signs: Vital Signs Temp 97.7 F 03/30/18 08:13 Pulse 71 03/30/18 08:13 Resp 17 03/30/18 08:13 BP 120/72 03/30/18 08:13 Pulse Ox 94 L 03/30/18 08:13 Intake & Output 03/29/18 03/30/18 03/30/18 18:59 06:59 18:59 Intake Total 4407.781 9758.431 Output Total 300 500 Balance 743.739 813.431 Weight 150.8 kg 151.3 kg Intake: IV 120.17 960 Heparin Sod,Pork in 0.45% 20.17 160 NaCl 25,000 unit In 0.45 % NaCl 1 500ml.bag @ 6.7 UNITS/KG/HR 20.17 mls/hr IV .Q24H FITO Rx#: [id number] Sodium Chloride 0.9% 1, 100 800 000 ml @ 100 mls/hr IV . Q10H FITO Rx#:[id number] Intake, IV Titration 146.569 353.431 Amount Heparin Sod,Pork in 0.45% 146.569 353.431 NaCl 25,000 unit In 0.45 % NaCl 1 500ml.bag @ 6.7 UNITS/KG/HR 20.17 mls/hr IV .Q24H FITO Rx#: [id number] Oral 777 Output: Urine 300 500 Other: Voiding Method Urinal Urinal Urinal # Voids 1 # Bowel Movements 0 - Exam Patient is sitting up in the bed, no acute distress, awake alert and oriented.. HEENT: Normocephalic. Neck is supple. Pupils reactive. Nostrils clear. Oral cavity is moist. Neck reveals no JVD, carotid bruits, or thyromegaly. CHEST EXAMINATION: Trachea is central. Symmetrical expansion. Lung devries clear to auscultation and percussion. CARDIAC: Normal S1, S2 with no gallops. No murmurs ABDOMEN: Soft. Bowel sounds normal. No organomegaly. No abdominal bruits. Extremities: reveal no edema. No clubbing or cyanosis Neurologically awake, alert, oriented x3 with well-coordinated movements. No focal deficits noted Skin: No rash or skin lesions. Psychiatric: Coperative. Nonsuicidal Musculoskeletal: No joint swelling or deformity. Normal range of motion. - Labs CBC & Chem 7: 03/30/18 05:26 03/30/18 05:26 Labs: Abnormal Lab Results - Last 24 Hours (Table) 03/29/18 03/29/18 03/29/18 Range/Units 03:56 11:46 18:29 MCHC (31.0-37.0) g/dL APTT (22.0-30.0) sec Creatinine (0.66-1.25) mg/dL Glucose (74-99) mg/dL Total Creatine Kinase 21 L 28 L (55-170) U/L Troponin I 0.245 H* 0.550 H* (0.000-0.034) ng/mL LDL Cholesterol, Calc 110 H (0-99) mg/dL HDL Cholesterol 34 L (40-60) mg/dL 03/29/18 03/30/18 03/30/18 Range/Units 21:20 05:26 05:26 MCHC 30.8 L (31.0-37.0) g/dL APTT 38.3 H (22.0-30.0) sec Creatinine 0.59 L (0.66-1.25) mg/dL Glucose 106 H (74-99) mg/dL Total Creatine Kinase (55-170) U/L Troponin I (0.000-0.034) ng/mL LDL Cholesterol, Calc (0-99) mg/dL HDL Cholesterol (40-60) mg/dL 03/30/18 Range/Units 05:26 MCHC (31.0-37.0) g/dL APTT 52.2 H (22.0-30.0) sec Creatinine (0.66-1.25) mg/dL Glucose (74-99) mg/dL Total Creatine Kinase (55-170) U/L Troponin I (0.000-0.034) ng/mL LDL Cholesterol, Calc (0-99) mg/dL HDL Cholesterol (40-60) mg/dL Assessment and Plan Assessment: Chest pain with non-STEMI Recent PCI with stent placement to RCA on 03/26/2018 History of coronary artery disease with stent placement to LAD previously Chronic atrial fibrillation on oral anticoagulants. History of dual-chamber permanent pacemaker placement Hypertension X 10 hyperlipidemia Morbid obesity BMI 46.4 COPD stable History of smoking Osteoarthritis with bilateral knee replacements in the past Plan: Continue on current medication regime ,monitoring and symptomatic treatment.NPO, maintain on heparin drip. Awaiting cardiac catheterization this afternoon. Follow closely with cardiology.. The impression and plan of care has been dictated as directed. : I performed a history and examination of this patient, discussed the same with the dictator. I agree with the dictator's note ,documented as a scribe. Any additional findings or plans will be noted.
--- NOTE | 2018-03-30 18:53 | PCN ---
PROCEDURE NOTE DATE OF SERVICE: 03/30/2018 PERFORMING PHYSICIAN: Oleg Summers MD, broom maker. PROCEDURES PERFORMED: 1. Selective right coronary angiogram. 2. Attempted balloon angioplasty of the right coronary artery. INDICATION: This is a pleasant 77-year-old gentleman who is known to have coronary artery disease who underwent stenting of the mid LAD last week, presented to the hospital complaining of chest discomfort. He had one episode of chest discomfort and continued to be pain- free after that. A heart catheterization was advised. APPROACH: Right common femoral artery. COMPLICATION: None. LEVEL OF SEDATION: Moderate with sedation length of 1 hour and 13 minutes. PROCEDURE DESCRIPTION: After obtaining informed consent, the patient was brought to the cardiac general labor. The right common femoral artery was cannulated using micropuncture technique. The micropuncture wire passed easily. Then I placed a 6-[place] sheath in the right common femoral artery. After that anticoagulation was initiated using Angiomax. Subsequently I engaged the RCA using an AL1 guiding catheter. I did a selective right coronary angiogram which showed patent stent in the mid RCA with severe disease involving the distal RCA which was mostly identified on the WILKINS view. I attempted wiring the RCA using multiple wires, including a Whisper wire, run-through wire, Choice PT wire, and I was unable to wire the right coronary artery because the wire was going behind the stent struts. At that point, I decided to stop. POST-PROCEDURE MANAGEMENT: 1. Maximize medical treatment. 2. Risk factor modifications. 3. Follow up with the patient. MMKAT / TROYN: [id number] /
[2018-03-31 07:14] LABS: Basophils % (A) 0 %; Eosinophils # (A) 0.4 k/uL (0-0.7); Eosinophils % (A) 5 %; HCT 46.9 % (39.0-53.0); HGB 14.5 gm/dL (13.0-17.5); Hypochromasia Slight; Lymphocytes # (A) 1.3 k/uL (1.0-4.8); Lymphocytes % (A) 19 %; MCH 29.2 pg (25.0-35.0); MCHC 30.9 g/dL (31.0-37.0); MCV 94.5 fL (80.0-100.0); Mean Platelet Volume 6.6; Monocytes # (A) 0.4 k/uL (0-1.0); Monocytes % (A) 7 %; Neutrophils # (A) 4.4 k/uL (1.3-7.7); Neutrophils % (A) 66 %; Platelet Count 256 k/uL (150-450); RBC 4.96 m/uL (4.30-5.90); RDW 15.3 % (11.5-15.5); WBC 6.6 k/uL (3.8-10.6)
[2018-03-31 07:26] LABS: Anion Gap 6 mmol/L; Blood Urea Nitrogen 12 mg/dL (9-20); Calcium 8.9 mg/dL (8.4-10.2); Carbon Dioxide 34 mmol/L (22-30); Chloride 104 mmol/L (98-107); Glucose 101 mg/dL (74-99); Potassium 4.3 mmol/L (3.5-5.1); Sodium 144 mmol/L (137-145)
[2018-03-31] MEDS: TICAGRELOR 90 MG TAB PO SCH ×2 (07:54→20:40)
[2018-03-31] MEDS: ASPIRIN 81 MG PO SCH (07:54)
[2018-03-31] MEDS: FUROSEMIDE 20 MG TAB PO SCH (07:54)
[2018-03-31] MEDS ORDERED: ASPIRIN 81 MG PO SCH (09:00)
[2018-03-31 10:33] VITALS: BMI 45.1
[2018-03-31] MEDS: LISINOPRIL 20 MG TAB PO SCH (11:20)
[2018-03-31] MEDS: ISOSORBIDE MONONITRATE ER 30 MG TAB.ER.24H PO SCH (11:20)
[2018-03-31] MEDS: amLODIPine 10 MG TAB PO SCH (11:20)
--- NOTE | 2018-03-31 12:58 | P.PN ---
Subjective 77-year-old with the coronary artery disease recent cardiac catheterization came in with chest pain underwent the coronary angiogram and attempted catheterization of the right coronary artery, unable to do angioplasty or stenting. Jigar therapy is being recommended by cardiology please refer to the procedure documentation. Constitutional: Denied any fatigue denied any fever. Cardio vascular: denied any chest pain, palpitations Gastrointestinal denied any nausea vomiting Pulmonary: Denied any shortness of breath cough Neurologic denied any new focal deficits Objective - Vital Signs Vital signs: Vital Signs Temp 97.4 F L 03/31/18 11:06 Pulse 74 03/31/18 11:06 Resp 18 03/31/18 11:06 BP 133/84 03/31/18 11:06 Pulse Ox 94 L 03/31/18 11:06 Intake & Output 03/30/18 03/31/18 03/31/18 18:59 06:59 18:59 Intake Total 1459.2 20 Output Total 600 1700 400 Balance 859.2 -1680 -400 Weight 146.9 kg 146.9 kg Intake: IV 141.2 20 0.9 20 Invasive Line 1 10 Oral 1318 Output: Urine 600 1700 400 Other: Voiding Method Urinal # Voids 2 # Bowel Movements 0 - Exam PHYSICAL EXAMINATION: GENERAL: The patient is alert and oriented x3, not in any acute distress. Well developed, well nourished. HEENT: Pupils are round and equally reacting to light. EOMI. No scleral icterus. No conjunctival pallor. Normocephalic, atraumatic. No pharyngeal erythema. No thyromegaly. CARDIOVASCULAR: S1 and S2 present. No murmurs, rubs, or gallops. PULMONARY: Chest is clear to auscultation, no wheezing or crackles. ABDOMEN: Soft, nontender, nondistended, normoactive bowel sounds. No palpable organomegaly. MUSCULOSKELETAL: No joint swelling or deformity. EXTREMITIES: No cyanosis, clubbing, or pedal edema. NEUROLOGICAL: Gross neurological examination did not reveal any focal deficits. SKIN: No rashes. Assessment and Plan Assessment: Chest pain with non-STEMI, status post cardiac catheterization. Maximal medical therapy close clinical monitoring possibility of discharge tomorrow Recent PCI with stent placement to RCA on 03/26/2018 History of coronary artery disease with stent placement to LAD previously Chronic atrial fibrillation on oral anticoagulants. History of dual-chamber permanent pacemaker placement Hypertension X 10 hyperlipidemia Morbid obesity BMI 46.4 COPD stable History of smoking Osteoarthritis with bilateral knee replacements in the past - Labs CBC & Chem 7: 03/31/18 06:25 03/31/18 06:25 Labs: Abnormal Lab Results - Last 24 Hours (Table) 03/31/18 03/31/18 Range/Units 06:25 06:25 MCHC 30.9 L (31.0-37.0) g/dL Carbon Dioxide 34 H (22-30) mmol/L Glucose 101 H (74-99) mg/dL
[2018-03-31] MEDS: CARVEDILOL 3.125 MG TAB PO SCH (16:21)
[2018-03-31] MEDS: FUROSEMIDE 40 MG TAB PO SCH (16:21)
[2018-04-01] MEDS: CARVEDILOL 3.125 MG TAB PO SCH (06:36)
[2018-04-01] MEDS: ASPIRIN 81 MG PO SCH (07:47)
[2018-04-01] MEDS: LISINOPRIL 20 MG TAB PO SCH (07:48)
[2018-04-01] MEDS: ISOSORBIDE MONONITRATE ER 30 MG TAB.ER.24H PO SCH (07:48)
[2018-04-01] MEDS: FUROSEMIDE 40 MG TAB PO SCH (07:48)
[2018-04-01] MEDS: TICAGRELOR 90 MG TAB PO SCH (07:48)
[2018-04-01 08:03] VITALS: BP 114/60; PULSE 65; RESP 18; TEMP 97.5
--- NOTE | 2018-04-01 10:07 | ECHOF ---
Referral Reason:chf MEASUREMENTS -------- HEIGHT: 180.3 cm WEIGHT: 146.5 kg BP: 133/84 RVIDd: 3.5 cm (< 3.3) IVSd: 1.4 cm (0.6 - 1.1) LVIDd: 4.9 cm (3.9 - 5.3) LVPWd: 1.4 cm (0.6 - 1.1) IVSs: 1.5 cm LVIDs: 4.1 cm LVPWs: 1.6 cm LA Diam: 4.2 cm (2.7 - 3.8) Ao Diam: 4.7 cm (2.0 - 3.7) AV Cusp: 2.1 cm (1.5 - 2.6) MV E Han: 0.97 m/s MV DecT: 274 ms MV A Han: 0.00 m/s MV E/A Ratio: 297.26 RAP: 10.00 mmHg RVSP: 28.11 mmHg FINDINGS -------- Paced rhythm. This was a technically difficult study with suboptimal views. The left ventricular size is normal. There is moderate concentric left ventricular hypertrophy. T here is mild global hypokinesis of LV . Overall left ventricular systolic function is mild-moderate ly impaired with, an EF between 40 - 45 %. The right ventricle is mildly enlarged. The left atrium was not well visualized. The left atrium is mildly dilated , and the LA measures 4. 2cm. Electronic pacemaker lead seen in the right ventricular cavity. 3 ml of Lumason was utilized for enhancement of images. There is mild aortic valve sclerosis. There is no evidence of aortic regurgitation. There is no e vidence of aortic stenosis. The mitral valve leaflets are mildly thickened. There is trace to mild mitral regurgitation. Mild tricuspid regurgitation present. Right ventricular systolic pressure is normal at < 35 mmHg. There is no evidence of pulmonary hypertension. The pulmonic valve was not well visualized. The aortic root size is normal. The IVC is dilated with normal collapse. There is no pericardial effusion. CONCLUSIONS -------- 1. Paced rhythm. 2. This was a technically difficult study with suboptimal views. 3. The left ventricular size is normal. 4. There is moderate concentric left ventricular hypertrophy. 5. There is mild global hypokinesis of LV . 6. Overall left ventricular systolic function is mild-moderately impaired with, an EF between 40 - 45 %. 7. The right ventricle is mildly enlarged. 8. The left atrium was not well visualized. 9. The left atrium is mildly dilated. 10. Electronic pacemaker lead seen in the right ventricular cavity. 11. 3 ml of Lumason was utilized for enhancement of images. 12. There is mild aortic valve sclerosis. 13. The mitral valve leaflets are mildly thickened. 14. There is trace to mild mitral regurgitation. 15. Mild tricuspid regurgitation present. 16. Right ventricular systolic pressure is normal at < 35 mmHg. 17. There is no evidence of pulmonary hypertension. 18. The pulmonic valve was not well visualized. 19. The aortic root size is normal. 20. The IVC is dilated with normal collapse. 21. There is no pericardial effusion. API DEVELOPER: Castillo Arrieta RDCS
--- NOTE | 2018-04-01 11:48 | P.PN ---
Subjective Progress Note Date: 04/01/18 This is a 77-year-old gentleman with history of chronic persistent atrial fibrillation, sick sinus syndrome status post pacemaker implantation, history of ischemic heart disease with prior stenting of the LAD and most recently patient underwent stenting of the RCA. Presented to the hospital with symptoms of chest discomfort. The patient was taken to the cardiac catheterization by Dr. Summers where he underwent selective right coronary angiogram with attempted balloon angioplasty of the right coronary artery, maximum medical therapy advised. Patient was initiated on nitrates. Overall he states feeling well today. Denies any chest discomfort in his breathing overall is stable. Blood pressure 114/60 with a heart rate in the 60s to 70s, 93% on room air. White blood cell count 6.6, hemoglobin 14.5, platelet count 256. Sodium 144, potassium 4.3, BUN 12, creatinine 0.7. Objective - Vital Signs Vital signs: Vital Signs Temp 97.5 F L 04/01/18 08:00 Pulse 65 04/01/18 08:00 Resp 18 04/01/18 08:00 BP 114/60 04/01/18 08:00 Pulse Ox 93 L 04/01/18 08:00 Intake & Output 03/31/18 04/01/18 04/01/18 18:59 06:59 18:59 Intake Total 360 180 Output Total 400 650 Balance -400 -290 180 Weight 146.9 kg 147.7 kg Intake: Oral 360 180 Output: Urine 400 650 Other: Voiding Method Urinal - Exam GENERAL EXAM: Patient is alert and oriented and doesn't appear to be in any acute distress HEENT: Normocephalic. Normal reaction of pupils, equal size, normal range of extraocular motion. No erythema or exudates in the throat. NECK: No masses, no nuchal rigidity. CHEST: No chest wall deformity. LUNGS: Equal air entry with no crackles or wheeze. HEART: S1 and S2 normal with no audible mumurs or gallops. Regular rhythm, femorals equal on both sides.. ABDOMEN: No hepatosplenomegaly, normal bowel sounds, no guarding or rigidity. SKIN: No rashes CENTRAL NERVOUS SYSTEM: No focal deficits. EXTREMITIES: No cyanosis, clubbing or edema. Right groin soft, no evidence of any hematoma. - Labs CBC & Chem 7: 03/31/18 06:25 03/31/18 06:25 Assessment and Plan Plan: Assessment and plan #1 unstable angina, status post cardiac catheterization with attempted angioplasty of the right coronary artery #2 history of coronary artery disease with recent stenting of the RCA and prior stent placement of the LAD #3 chronic persistent atrial fibrillation on Eliquis for anticoagulation #4 history of dual-chamber permanent pacemaker #5 hypertension #6 obesity #7 COPD #8 hyperlipidemia Plan From cardiology's perspective, patient may be able to be discharged home today. He will be discharged home on Eliquis 2-1/2 mg twice a day, aspirin 81 mg daily, Brilinta 90 twice a day, patient has ALLERGY to statins, we will start him on Crestor 40 mg daily, continue Imdur 30 mg daily, lisinopril 20 mg daily, and Coreg 3.125 mg twice a day along with sublingual nitroglycerin. Follow-up appointment with Dr. Summers in the office next week. DNP note has been reviewed, I agree with a documented findings and plan of care. Patient was seen and examined.
--- NOTE | 2018-04-01 12:53 | P.DS ---
Providers Date of admission: 03/29/18 07:24 Attending physician: Alexander Seo MD Consults: 03/29/18 07:02 Consult Physician Urgent Consulting Provider: Salinas Landrum Consult Reason/Comments: chest pain Do you want consulting provider notified?: Yes 03/30/18 14:05 Consult Physician Routine Consulting Provider: [facility] Consult Reason/Comments: Post Interventional patient Do you want consulting provider notified?: Already Contacted Primary care physician: Fredy Collier [facility] Hospital Course: 77-year-old with the coronary artery disease recent cardiac catheterization came in with chest pain underwent the coronary angiogram and attempted catheterization of the right coronary artery, unable to do angioplasty or stenting. Jigar therapy is being recommended by cardiology please refer to the procedure documentation. 03/27/2018 Patient is clinically doing well is being discharged today PHYSICAL EXAMINATION: GENERAL: The patient is alert and oriented x3, not in any acute distress. Well developed, well nourished. HEENT: Pupils are round and equally reacting to light. EOMI. No scleral icterus. No conjunctival pallor. Normocephalic, atraumatic. No pharyngeal erythema. No thyromegaly. CARDIOVASCULAR: S1 and S2 present. No murmurs, rubs, or gallops. PULMONARY: Chest is clear to auscultation, no wheezing or crackles. ABDOMEN: Soft, nontender, nondistended, normoactive bowel sounds. No palpable organomegaly. MUSCULOSKELETAL: No joint swelling or deformity. EXTREMITIES: No cyanosis, clubbing, or pedal edema. NEUROLOGICAL: Gross neurological examination did not reveal any focal deficits. SKIN: No rashes. Assessment and Plan Assessment: Chest pain with non-STEMI, status post cardiac catheterization. Patient is being discharged today with the changes in his medical therapy for coronary ischemia Recent PCI with stent placement to RCA on 03/26/2018 History of coronary artery disease with stent placement to LAD previously Chronic atrial fibrillation on oral anticoagulants. History of dual-chamber permanent pacemaker placement Hypertension X 10 hyperlipidemia Morbid obesity BMI 46.4 COPD stable History of smoking Osteoarthritis with bilateral knee replacements in the past Patient Condition at Discharge: Stable Plan - Discharge Summary Discharge Rx Participant: No New Discharge Prescriptions: New Carvedilol [Coreg] 3.125 mg PO BID-W/MEALS #60 tab Isosorbide Mononitrate ER [Imdur] 30 mg PO DAILY #30 tab.er.24h Nitroglycerin Sl Tabs [Nitrostat] 0.4 mg SUBLINGUAL Q5M PRN #25 tab PRN Reason: Chest Pain Rosuvastatin Calcium [Crestor] 40 mg PO DAILY #30 tab Ticagrelor [Brilinta] 90 mg PO BID #60 tab Continue Aspirin 81 mg PO Q48H Furosemide [Lasix] 20 mg PO DAILY Apixaban [Eliquis] 2.5 mg PO BID #60 tab Discontinued Meloxicam [Mobic] 7.5 mg PO BID No Action amLODIPine BESYLATE/BENAZEPRIL [Lotrel 10-20 mg Capsule] 1 cap PO DAILY Multivitamins, Thera [Multivitamin (formulary)] 1 tab PO DAILY Tamsulosin [Flomax] 0.4 mg PO DAILY Cholecalciferol (Vitamin D3) [Vitamin D3] 2,000 unit PO DAILY Discharge Medication List Aspirin 81 mg PO Q48H 11/27/16 [History] Multivitamins, Thera [Multivitamin (formulary)] 1 tab PO DAILY 11/27/16 [History ] amLODIPine BESYLATE/BENAZEPRIL [Lotrel 10-20 mg Capsule] 1 cap PO DAILY [History] Cholecalciferol (Vitamin D3) [Vitamin D3] 2,000 unit PO DAILY 02/19/18 [History] Furosemide [Lasix] 20 mg PO DAILY 02/19/18 [History] Tamsulosin [Flomax] 0.4 mg PO DAILY 02/19/18 [History] Apixaban [Eliquis] 2.5 mg PO BID #60 tab 03/27/18 [Rx] Carvedilol [Coreg] 3.125 mg PO BID-W/MEALS #60 tab 04/01/18 [Rx] Isosorbide Mononitrate ER [Imdur] 30 mg PO DAILY #30 tab.er.24h 04/01/18 [Rx] Nitroglycerin Sl Tabs [Nitrostat] 0.4 mg SUBLINGUAL Q5M PRN #25 tab 04/01/18 [Rx ] Rosuvastatin Calcium [Crestor] 40 mg PO DAILY #30 tab 04/01/18 [Rx] Ticagrelor [Brilinta] 90 mg PO BID #60 tab 04/01/18 [Rx] Follow up Appointment(s)/Referral(s): Skaf,Oleg, MD [STAFF PHYSICIAN] - 04/06/18 1:00 pm (Thursday) Fredy Rodriguez III, MD [Primary Care Provider] - 04/05/18 8:30 am Patient Instructions/Handouts: *Surgery [facility] - After Heart Catheterization - Software Firmware Engineer Instructions, Chest Pain (ED) Discharge Disposition: HOME SELF-CARE
== END 2018-04-01 12:37 | disposition home or self-care (01) | DRG 281 ==
LOC: EC 03:38 → OBSVTOIN 07:24 → 6SEL 07:24
PROVIDERS: ADMIT Internal Medicine; ATTEND Internal Medicine
PROC: B210YZZ Fluoroscopy of Single Coronary Artery using Other Contrast (ICD-10-PCS; principal; 2018-03-30 12:00)
DX: I21.4 Non-ST elevation (NSTEMI) myocardial infarction (principal); Z68.42 Body mass index [BMI] 45.0-49.9, adult; J84.10 Pulmonary fibrosis, unspecified; E66.01 Morbid (severe) obesity due to excess calories; I48.2 Chronic atrial fibrillation; I25.110 Atherosclerotic heart disease of native coronary artery with unstable angina pectoris; E78.5 Hyperlipidemia, unspecified; J44.9 Chronic obstructive pulmonary disease, unspecified; I10 Essential (primary) hypertension; N42.9 Disorder of prostate, unspecified; M19.91 Primary osteoarthritis, unspecified site; Z79.01 Long term (current) use of anticoagulants; Z79.1 Long term (current) use of non-steroidal anti-inflammatories (NSAID); Z79.82 Long term (current) use of aspirin; Z79.899 Other long term (current) drug therapy; Z95.5 Presence of coronary angioplasty implant and graft; Z95.0 Presence of cardiac pacemaker; Z96.653 Presence of artificial knee joint, bilateral; Z87.891 Personal history of nicotine dependence; Z98.42 Cataract extraction status, left eye; Z98.41 Cataract extraction status, right eye; Z88.8 Allergy status to other drugs, medicaments and biological substances; Z80.8 Family history of malignant neoplasm of other organs or systems; Z82.49 Family history of ischemic heart disease and other diseases of the circulatory system
CPT/HCPCS: 36415; 71045; 80048; 80053; 80061; 82550; 82553; 83735; 84132; 84484; 85025; 85610; 85730; 93005; 93306; 93454; 94760; 96374; 99285

== ENCOUNTER → 2019-01-17 | Outpatient (CLI) | payer MEDICARE ==
--- NOTE | 2019-01-17 18:10 | CT ---
EXAMINATION TYPE: CT chest wo con DATE OF EXAM: 01/17/2019 COMPARISON: 10/29/2017 HISTORY: Lung nodule CT DLP: 748 mGycm, Automated exposure control for dose reduction was used. CONTRAST: None TECHNIQUE: Axial images were obtained at 5 mm thick sections. Reconstructed images are reviewed on [email or web address] computer in the coronal plane. FINDINGS: Portion of the thyroid visualized is normal. There are multiple nodules present throughout the bilateral lung devries. These measure 2 cm or less. These were present previously. New nodules are not identified. No increasing size nodules are evident . Most nodules are stable in size or 1 to 2 mm less. Of these nodules on the most suspicious in the left apex which contains spiculation without smooth trenton rders. This nodule is unlikely the remaining nodules has increased in size from 1.7 to 1.9 cm. No enlarged mediastinal or hilar adenopathy is evident. The ascending aorta diameter at the level o f the main pulmonary artery is 4.3 cm. The main pulmonary artery diameter at the bifurcation is 3.6 cm. Coronary artery calcification is present. Limited CT sections are obtained through the upper abdomen. There is a stable bilobed hypodensity wit hin the superior right lobe liver. There is a stable nonobstructing renal stone in the superior poste rior pole left kidney. IMPRESSIONS: 1. The spiculated nodule within the left apex has increased in size from 1.7 to 1.9 cm. Neoplasm is n ot excluded. Consider PET CT. 2. Remaining nodules appear stable or diminished in size over the interval. 3. Ascending thoracic aortic aneurysm of 4.3 cm. A Yellow level critical message alert has been initiated for Vito Watts MD~[id number] via the [employer] Critical Results System on 01/17/2019 6:07 PM. This message alert has been sent to Vito Watts MD~[id number] via the preferences provided by the clinician for the receipt of Radiology Critical Finding s. Message ID [id number].
== END | disposition home or self-care (01) ==
LOC: RADCTMAIN 13:21
PROVIDERS: ATTEND Internal Medicine
DX: I71.2 Thoracic aortic aneurysm, without rupture (principal); R91.8 Other nonspecific abnormal finding of lung field
CPT/HCPCS: 71250

== ENCOUNTER → 2019-08-29 | Outpatient (CLI) | payer MEDICARE ==
--- NOTE | 2019-08-29 09:17 | MM ---
Reason for exam: clinical finding. Physical Findings: Nurse did not find any significant physical abnormalities on exam. MG Diagnostic Mammo w CAD JAMSHID Bilateral CC and MLO view(s) were taken. Finding #1: There is a 4 mm mass located 4.5 cm from the nipple in the upper outer quadrant of the right breast, possible lymph node. Finding #2: There are few typically benign calcifications. Left cardiac device. Bilateral retroareolar flame shaped gynecomastia. These results were verbally communicated with the patient and result sheet given to the patient on 08/29/19. ASSESSMENT: Incomplete: need additional imaging evaluation, BI-RAD 0 RECOMMENDATION: Ultrasound of the right breast. (upper outer quadrant)
--- NOTE | 2019-08-29 09:18 | USB ---
Reason for exam: additional evaluation requested from abnormal screening. US Breast Limited RT Right limited breast ultrasound including focal area of concern, retroareolar and axilla demonstrates a 0.5 x 0.3 x 0.2cm solid, hypoechoic lesion at 10 o'clock, probable lymph node, precautionary 6 month follow up ultrasound recommended and a 4.1 x 0.9cm solid, hypoechoic lesion at the posterior nipple, gynecomastia. These results were verbally communicated with the patient and result sheet given to the patient on 08/29/19. ASSESSMENT: Probably benign, BI-RAD 3 RECOMMENDATION: Ultrasound of the right breast in 6 months. (upper outer quadrant)
== END | disposition home or self-care (01) ==
LOC: RADMAMWWP 07:21
PROVIDERS: ATTEND Family Medicine
DX: N64.4 Mastodynia (principal); R92.8 Other abnormal and inconclusive findings on diagnostic imaging of breast
CPT/HCPCS: 77066

== ENCOUNTER → 2019-09-02 | Outpatient (CLI) | payer MEDICARE ==
--- NOTE | 2019-09-04 12:19 | PE ---
EXAMINATION TYPE: PET CT fusion skull to thigh DATE OF EXAM: 09/02/2019 COMPARISON: CT chest 01/17/2019 Prior PET/CT: 02/23/2016 HISTORY: Solitary pulmonary nodule, lung neoplasm TECHNIQUE: Following the intravenous administration of 11.79 mCi of F-18 FDG, whole body images are performed from the skull base to the midthigh. Images are reviewed on the computer in the coronal, a xial, and sagittal planes. Reconstructed rotating images are created on independent workstation and reviewed on the computer. A localization and attenuation correction CT is performed in conjunction with the PET scan. DLP: 665.81 mGycm SCAN: Subsequent Scan Blood glucose: 104 mg/dL Average Mediastinum SUV: 1.44 Average Liver SUV: 2.05 FINDINGS: NECK: No abnormal uptake THORAX: There is focal marked increased uptake within the lung mass in the lateral left upper lung fi eld. PET image 86. SUV 34.73. Remaining multiple pulmonary nodules do not have suspicious uptake. This would include a posterior la teral left lung base nodule. Image 114 SUV value 0.68. A posterior right infrahilar nodule, PET image 104 SUV value 1.11. Lung nodules in the posterior infrahilar regions bilaterally, PET image 100, SUV value 0.54 on the left and 0.82 on the right. A periaortic nodule in the left lung. PET image 97 SUV 0.76. Ill-defined increased uptake in the mid right middle lobe adjacent to the mediastinum. PET maria guadalupe ge 99, SUV value 0.68. A right lateral lung nodule PET image 91, SUV value 1.11 a right upper lobe no dule, PET image 87 SUV 0.79 a punctate anterior right upper lobe nodule, PET image 85 SUV 0.67. A pos terior right lung nodule, PET image 84, SUV 0.86. ABDOMEN: No abnormal uptake. There is a hypodensity within the superior right lobe liver which appear s hypointense on uptake is well PELVIS: No abnormal uptake OSSEOUS STRUCTURES: No abnormal uptake LOCALIZATION CT: Ascending thoracic aorta at the level the main pulmonary artery is 4.6 cm. The main pulmonary artery the bifurcation is 3.8 cm. No suspicious mediastinal adenopathy by CT criteria is ev ident. Couple of smaller shotty lymph nodes are within the mediastinum with intermediate uptake on SMITH V values. Note is made of coronary artery calcification. A nonobstructing renal stone is at the left mid kidney. COMPARISON: Nodule in the left upper lobe has increased in size over the interval currently measuring 4.3 cm. IMPRESSION: 1. Markedly intense uptake within a enlarging left upper lobe nodule compatible with neoplasm. This a ppears solitary and may be a lung primary without abnormal uptake within additional pulmonary nodules present and no abnormal uptake within the shotty lymph nodes within the mediastinum at this time. 2. No additional suspicious areas of radiotracer accumulation. 3. Ascending thoracic aortic aneurysm measuring 4.6 cm on current exam. A Yellow level critical message alert has been initiated for Vito Watts MD~[id number] via the [employer] Critical Results System on 09/04/2019 12:15 PM. This message alert has been sent to Vito Watts MD~[id number] via the preferences provided by the clinician for the receipt of Radiology Critical Finding s. Message ID [id number].
== END | disposition home or self-care (01) ==
LOC: RADPETMAIN 13:46
PROVIDERS: ATTEND Internal Medicine
DX: R91.8 Other nonspecific abnormal finding of lung field (principal); I71.2 Thoracic aortic aneurysm, without rupture
CPT/HCPCS: 78815; A9552

== ENCOUNTER 2019-09-12 09:50 | Day surgery (SDC) | payer MEDICARE ==
[2019-09-08 13:59] VITALS: BMI 42.8
[~2019-09-12 09:50] MED LIST changes: +ALBUTEROL NEB (CONC) 2.5 MG/0.5 ML INHALATION ONE; -ALPRAZolam 0.25 MG TAB PO PRN; -ASPIRIN 325 MG TAB PO ONE; +DEXAMETHASONE SOD PHOSPHATE 10 MG/ML 1 ML VIAL IV ONE; +LACTATED RINGERS 1,000 ML IV SCH; +LIDOCAINE 2% (PF) 20 MG/ML 5 ML VIAL INHALATION ONE; +LIDOCAINE VISCOUS 300 MG/15 ML CUP MUCOUS MEM ONE; +MIDAZOLAM 2 MG/2 ML VIAL IV PRN; +ONDANSETRON 4 MG/2 ML VIAL IVP ONE; +SODIUM CHLORIDE 0.9% 1,000 ML IV SCH; -SODIUM CHLORIDE 0.9% 1,000 ML in EMPTY BAG 1 BAG IV ONE; +fentaNYL (PF) 50 MCG/ML 2 ML AMP IV PRN
[2019-09-12] MEDS ORDERED: LIDOCAINE 1% (10MG/ML) FOR IV START INTRADERMA ONE (10:36)
--- NOTE | 2019-09-12 11:42 | CT ---
EXAMINATION TYPE: CT Chest wo con Veran Protocol DATE OF EXAM: 09/12/2019 COMPARISON: PET CT 09/02/2019 HISTORY: 79-year-old male bronchial navigation, lung nodule TECHNIQUE: Contiguous axial scanning of the chest without IV contrast. Both inspiratory and expirator y imaging was performed for navigational purposes. Coronal and sagittal reconstructions performed. CT DLP: 1250 mGycm Automated exposure control for dose reduction was used. FINDINGS: Left anterior chest wall pacemaker generator with right atrial and right ventricular leads. Heart borderline enlarged without pericardial effusion. Three-vessel coronary artery calcifications a re present. Ascending aorta mildly aneurysmal at 4.1 cm. Additional aneurysm upper descending thoracic aorta at 3 .8 cm. Oval in configuration to the aortic arch. Scattered prominent but nonenlarged mediastinal lymph nodes are redemonstrated measuring up to 8 mm. Mild to moderate bilateral gynecomastia. The known 4.5 cm left upper lobe lung mass is redemonstrated measuring up to 4.3 cm on prior exam. Th is is noted to be hypermetabolic on patient's PET/CT. Numerous additional pulmonary nodules are also redemonstrated measuring up to 2.1 cm. These were not metabolic on patient's PET/CT. Stable patchy opacity anterior medial segment right middle lobe. Stable 2.5 cm right hepatic dome hypodensity, probable cyst and partially visualized 1 cm nonobstruct grace left renal calculus. Bones: Bridging anterior endplate spondylosis suggesting DISH. IMPRESSION: 1. VERAN PROTOCOL FOR BRONCHIAL NAVIGATION. 2. KNOWN HYPERMETABOLIC 4.5 CM LEFT UPPER LOBE MASS. 3. ADDITIONAL BILATERAL NONMETABOLIC NODULES REDEMONSTRATED MEASURING UP TO 2.1 CM WHICH ARE NONSPECI FIC. 4. CAD. MILD ANEURYSM ASCENDING AORTA 4.1 CM AND UPPER DESCENDING THORACIC AORTA AT 3.8 CM.
[2019-09-12] MEDS ORDERED: NEOSTIGMINE 1 MG/ML 10 ML VIAL ONE (12:45)
[2019-09-12] MEDS ORDERED: PROPOFOL 10 MG/ML 20 ML VIAL IV ONE (12:45)
[2019-09-12] MEDS ORDERED: ROCURONIUM BROMIDE 10 MG/ML 5 ML VIAL IV ONE (12:45)
[2019-09-12] MEDS ORDERED: SUCCINYLCHOLINE CHLORIDE 100 MG/5 ML SYR IV ONE (12:45)
[2019-09-12] MEDS ORDERED: LIDOCAINE 1% INJ 10MG/ML (20 ML MDV) ONE (12:45)
[2019-09-12] MEDS ORDERED: fentaNYL (PF) 50 MCG/ML 2 ML AMP ONE (12:45)
[2019-09-12] MEDS ORDERED: GLYCOPYRROLATE 0.2 MG/ML 2 ML VIAL ONE (12:45)
[2019-09-12] MEDS ORDERED: SODIUM CHLORIDE 0.9% 1,000 ML IV ONE (13:27)
[2019-09-12 13:52] VITALS: TEMP 97
--- NOTE | 2019-09-12 14:19 | PCN ---
PROCEDURE NOTE PROCEDURE REPORT: Navigational bronchoscopy with multiple transbronchial biopsies of the left upper lobe. Multiple brushings of the left upper lobe mass and a fine-needle aspiration done with the navigational approach of the left upper lobe mass. And a bronchoalveolar lavage of the left upper lobe. PREOPERATIVE DIAGNOSIS: Large left upper lobe tumor/nodule. POSTOPERATIVE DIAGNOSIS: Large left upper lobe tumor/nodule. ANESTHESIA USED: Patient had a general anesthesia and he was intubated and mechanically ventilated during the procedure. PROCEDURE DESCRIPTION: Patient had his CT of the chest earlier today using the Veran protocol. Sensors were applied to the chest. Patient was brought into the endoscopy suite, room I and I reviewed the mapping and approved the mapping of the lungs done earlier. And after mapping was reviewed and confirmed the lesion in the left upper lobe, the scans were exported to the [employer] system. The patient was brought into the endoscopy suite, room 1, he was intubated, and we were able to monitor his blood pressure intermittently, cardiac rhythm was continue monitor and his O2 saturation was continuously monitored. After adequate sedation, the bronchoscope was advanced through the bronchoscope, and by recognized and did the markings of the main larissa and the secondary larissa on the left. Then, using the navigation approach, the left upper lobe lesion was noted on the navigational system, and I was able to do multiple transbronchial biopsies from the left upper lobe apical segment. Brushings were also done, transbronchial biopsies done. Washings were done, and the brushings as well as fine-needle aspirations were done. All the specimens obtained were sent for different diagnostic studies. The procedure was well tolerated, blood loss was negligible. Procedure was well tolerated and no evidence of any immediate complications. MMODL / IJN: [id number] /
[2019-09-12 14:41] VITALS: RESP 16
--- NOTE | 2019-09-12 14:42 | XR ---
EXAMINATION TYPE: XR chest 1V portable DATE OF EXAM: 09/12/2019 COMPARISON: 03/29/2018 HISTORY: Left upper lobe biopsies TECHNIQUE: Single frontal view of the chest is obtained. FINDINGS: Portions of the left upper lobe are obscured by the left-sided cardiac device and leads. M ultiple bilateral nodules and masses are seen throughout both lungs. Left perihilar density has incre ased and may represent postbiopsy hemorrhage right basilar linear atelectasis and probable trace left pleural effusion are seen. Enlarged cardiomediastinal silhouette. No gross evidence of postbiopsy pn eumothorax. IMPRESSION: Bilateral pulmonary nodules andr left lung mass. No gross evidence of postprocedural pne umothorax however portions of the left lung are secured. Trace left pleural effusion and right basila r atelectasis are seen.
[2019-09-12 15:01] VITALS: BP 135/82; PULSE 75
== END 2019-09-12 15:08 | disposition home or self-care (01) ==
LOC: ORWHC2ENDO 09:50
PROVIDERS: ATTEND Internal Medicine
DX: C34.12 Malignant neoplasm of upper lobe, left bronchus or lung (principal); J84.10 Pulmonary fibrosis, unspecified; I44.2 Atrioventricular block, complete; G47.33 Obstructive sleep apnea (adult) (pediatric); I48.20 Chronic atrial fibrillation, unspecified; E66.01 Morbid (severe) obesity due to excess calories; I11.0 Hypertensive heart disease with heart failure; I50.9 Heart failure, unspecified; J96.12 Chronic respiratory failure with hypercapnia; J96.11 Chronic respiratory failure with hypoxia; I25.10 Atherosclerotic heart disease of native coronary artery without angina pectoris; G47.10 Hypersomnia, unspecified; I71.2 Thoracic aortic aneurysm, without rupture; M19.90 Unspecified osteoarthritis, unspecified site; Z88.8 Allergy status to other drugs, medicaments and biological substances; Z79.82 Long term (current) use of aspirin; Z79.899 Other long term (current) drug therapy; Z79.01 Long term (current) use of anticoagulants; Z68.41 Body mass index [BMI] 40.0-44.9, adult; Z87.891 Personal history of nicotine dependence; Z95.0 Presence of cardiac pacemaker; Z95.5 Presence of coronary angioplasty implant and graft; Z98.890 Other specified postprocedural states; Z87.09 Personal history of other diseases of the respiratory system; Z99.89 Dependence on other enabling machines and devices; Z88.5 Allergy status to narcotic agent
CPT/HCPCS: 88104; 88108; 88173; 88305; 88342; 88341; 87070; 87205; 87116; 87102; 87206; 71045; 71250; 31625; 31623; 31624; 31627; J1100; J2710; J2405; J2001; J3010; J0330; J2704; 31629

== ENCOUNTER → 2019-09-23 | Outpatient (CLI) | payer MEDICARE ==
[2019-09-23 13:39] LABS: African American GFR (CKD) >90 (>60 ml/min/1.73 sqM); Blood Urea Nitrogen 16 mg/dL (9-20); Non-African American GFR(CKD) 90 (>60 ml/min/1.73 sqM)
--- NOTE | 2019-09-23 14:30 | CT ---
EXAMINATION TYPE: CT brain wo/w con DATE OF EXAM: 09/23/2019 COMPARISON: None. HISTORY: Lung CA CT DLP: 2777.6 mGycm Automated exposure control for dose reduction was used. CONTRAST: CT scan of the head is performed without and with IV Contrast, patient injected with 100 mL of Isovue 300. FINDINGS: There is no abnormal enhancing mass or midline shift identified. Diffuse ventricular and sulcal promi nence. Low-attenuation in the deep and periventricular white matter. Postcontrast images show no defi nitive suspicious enhancing intraparenchymal mass. Mild to moderate eccentric mucosal thickening in v isualized portion of the right maxillary sinus with mucosal thickening and patchy opacification of th e right ethmoid sinuses and inferior right frontal sinus. Remainder paranasal sinuses are clear. Glob es are intact bilaterally. IMPRESSION: No acute intracranial hemorrhage or midline shift. Mild diffuse cerebral atrophy and mil d to moderate chronic small vessel ischemic change. No suspicious enhancing intraparenchymal masses. Acute on chronic right-sided paranasal sinus disease.
== END | disposition home or self-care (01) ==
LOC: RADCTMAIN 12:54
PROVIDERS: ATTEND Radiology Radiation Oncology
DX: G31.9 Degenerative disease of nervous system, unspecified (principal); C34.12 Malignant neoplasm of upper lobe, left bronchus or lung; I67.82 Cerebral ischemia
CPT/HCPCS: 82565; 84520; 70470; 36415; Q9967

== ENCOUNTER → 2019-12-12 | Outpatient (CLI) | payer MEDICARE ==
[2019-12-12 13:45] LABS: African American GFR (CKD) >90 (>60 ml/min/1.73 sqM); Blood Urea Nitrogen 17 mg/dL (9-20); Non-African American GFR(CKD) 85 (>60 ml/min/1.73 sqM)
--- NOTE | 2019-12-12 15:24 | CT ---
EXAMINATION TYPE: CT chest wo/w con DATE OF EXAM: 12/12/2019 COMPARISON: Prior CT 01/17/2019 HISTORY: lung cancer follow up CT DLP: 1422.3 mGycm Automated exposure control for dose reduction was used. CONTRAST: CT scan of the chest is performed without and with IV Contrast, patient injected with 100 mL of Isovu e 300. FINDINGS: LUNGS: The lungs are showing multiple spherical nodules bilaterally which are stable or have grown sl ightly in size. Mass in the left upper lobe shows irregular margins and is increased from prior exam approximately 19 mm to now measuring approximately 3.8 cm in greatest transverse dimension, spiculate d margins extending to the pleural surface. Nodule not seen There is pleural thickening which is prog ressed in the interval in the left upper lobe laterally. There is no pleural effusion or pneumothorax seen. The tracheobronchial tree is patent. MEDIASTINUM: There are no greater than 1 cm hilar or mediastinal lymph nodes. No pericardial effusi on is seen. Postprocedural changes noted to the heart. There is a generator in the left pectoral reg ion. AORTA: Root of aorta measures approximately 4 cm. There are coronary artery calcifications. OTHER: Leads are present within the heart. There is likely debris or stones within the gallbladder. Nonobstructive calculus present at the upper pole the left kidney measures approximately 1 cm, nonobs tructing calculus anteriorly measures only 1 to 2 mm the left kidney. Low dense focus within the righ t lobe of the liver shows a similar appearance. IMPRESSION: There is interval progression in the patient's left upper lobe lung mass as described. M ultiple pulmonary nodules are stable to slightly increased. Nonobstructive left nephrolithiasis. Prob able cholelithiasis. There are disease. Borderline aortic aneurysm at the root.
== END | disposition home or self-care (01) ==
LOC: RADCTMAIN 12:42
PROVIDERS: ATTEND Radiology Radiation Oncology
DX: C34.12 Malignant neoplasm of upper lobe, left bronchus or lung (principal); R91.8 Other nonspecific abnormal finding of lung field; Z87.891 Personal history of nicotine dependence
CPT/HCPCS: 82565; 84520; 71270; 36415; Q9967

== ENCOUNTER → 2020-02-24 | Outpatient (CLI) | payer MEDICARE ==
--- NOTE | 2020-02-24 11:38 | CT ---
EXAMINATION TYPE: CT chest wo con DATE OF EXAM: 02/24/2020 COMPARISON: 12/12/2019 HISTORY: Malignant neoplasm of left upper lobe CT DLP: 1321.[address] of the chest was performed with lung and mediastinal window settings submitted. The la ck of contrast limits evaluation of the vascular, mediastinal and parenchymal structures including th e upper abdomen. LUNGS: Masslike area within the left upper lobe measuring 2.0 cm has decreased in size from 3.8 cm ma ximal dimension. Again noted are multiple spherical up pulmonary nodules bilaterally some of which de monstrate central calcification. Metastatic disease is not excluded. Overall number and size of lesio ns is felt to be stable. The largest nodule right lung is seen within the right upper lobe and measur es 1.7 cm the largest nodule within the left lower lobe measures 1.8 cm. No infiltrate or pleural eff usion seen. MEDIASTINUM/EZEQUIEL: Ectasia thoracic aorta. Cardiomegaly. No evidence for mediastinal mass. No lymph nodes greater than 1cm. UPPER ABDOMEN: Ill-defined hypoattenuating lesion anterior segment right hepatic lobe is unchanged. N onobstructing nephrolithiasis left kidney. Cholelithiasis. OTHER: No significant other abnormality. IMPRESSION: 1. Masslike area left upper lobe has improved with regards to overall size. 2. Spherical nodules throughout both lung devries remain unchanged with regard to size and morphology and overall number. 3. Stable and nonspecific hepatic lesion.
== END | disposition home or self-care (01) ==
LOC: RADCTMAIN 10:42
PROVIDERS: ATTEND Radiology Radiation Oncology
DX: C34.12 Malignant neoplasm of upper lobe, left bronchus or lung (principal); Z87.891 Personal history of nicotine dependence
CPT/HCPCS: 71250

== ENCOUNTER → 2020-05-23 | Outpatient (CLI) | payer MEDICARE ==
--- NOTE | 2020-05-23 11:03 | US ---
EXAMINATION TYPE: US abdomen complete DATE OF EXAM: 05/23/2020 COMPARISON: NONE CLINICAL HISTORY: N13.2 Hydronephrosis with renal and ureteral. bilateral flank pain, worse on the le ft, history of kidney stones and gallstone, lung cancer EXAM MEASUREMENTS: Liver Length: 14.2 cm Gallbladder Wall: 0.4 cm CBD: 0.7 cm Spleen: 12.0 cm Right Kidney: 13.3 x 5.7 x 6.1 cm Left Kidney: 13.2 x 5.0 x 5.1 cm *Technical limitations due to overlying bowel content Pancreas: possible hypoechoic or cystic area body of pancreas = 0.7cm Liver: complex area right lobe = 3.4 x 2.0 x 2.7cm Gallbladder: gallstone = 3.1cm Evidence for sonographic Ervin's sign: yes CBD: slightly dilated Spleen: appears wnl Right Kidney: no evidence of hydronephrosis Left Kidney: echogenic foci, largest = 1.4cm at upper pole Upper IVC: wnl Abd Aorta: calcifications noted, bifurcation obscured IMPRESSION: 1. Recommend CT of the abdomen for evaluation of possible hypoechoic or cystic lesion pancreatic body in addition to complex area right hepatic lobe. 2. Cholelithiasis. 3. Left-sided nephrolithiasis suspected.
== END | disposition home or self-care (01) ==
LOC: RADUSWWP 09:55
PROVIDERS: ATTEND Family Medicine
DX: K80.20 Calculus of gallbladder without cholecystitis without obstruction (principal)
CPT/HCPCS: 76700

== ENCOUNTER → 2020-06-07 | Outpatient (CLI) | payer MEDICARE ==
[2020-06-07 09:40] LABS: African American GFR (CKD) >90 (>60 ml/min/1.73 sqM); Blood Urea Nitrogen 18 mg/dL (9-20); Non-African American GFR(CKD) 89 (>60 ml/min/1.73 sqM)
--- NOTE | 2020-06-07 11:34 | CT ---
EXAMINATION TYPE: CT chest wo con DATE OF EXAM: 06/07/2020 COMPARISON: Chest CT February 24, 2020 and older CTs. Most recent PET/CT September 02, 2019 HISTORY: Lung cancer CT DLP: 773.60 mGycm. Automated Exposure Control for Dose Reduction was Utilized. TECHNIQUE: CT scan of the thorax is performed without IV contrast. FINDINGS: LUNGS: Redemonstration of multiple scattered nodules bilaterally. For reference a 1.7 cm superior lef t lower lobe nodule axial image 35 there is stable from most recent CT axial much 38 and not signific antly changed back to 2015 study. Right-sided scattered nodules redemonstrated. Largest superior aspe ct right lower lobe measuring 2.2 x 1.9 cm axial image 30 not significant changed from most recent CT . Peripheral heterogeneous right upper lobe nodule measures 1.9 x 1.9 cm image 23 perhaps slightly la rger from older studies. Additional scattered right-sided nodules stable in size and number. There is however worsening irregular masslike consolidation left suprahilar region medially measuring 4.7 x 2.8 cm axial image 15 with peripheral consolidation and/or atelectasis extending anteriorly mendoza periorly and laterally more prominent from prior study. Peripheral reticulation and groundglass opaci ties image 17 slightly more prominent posteriorly on current study. Developing peripheral groundglass opacities and organizing consolidation in the left lower lung erect image 31 is now present. MEDIASTINUM.: Lack of IV contrast is noted to limit evaluation for mediastinal and especially hilar a denopathy. There are no definitive greater than 1 cm hilar or mediastinal lymph nodes. No new peric ardial effusion is seen. New dual-lead pacemaker with leads terminating in right atrium and right charlette tricle. Stable fairly severe three-vessel coronary artery calcification. Mild calcified plaque in ect atic abdominal aorta. OTHER: Moderate subareolar gynecomastia redemonstrated. Stable 2.7 cm low dense lesion right hepatic dome presumed benign. [id number] multilevel spurring in the spine. IMPRESSION: Stable scattered nodules bilaterally. Of more concern, Corresponding to the hypermetaboli c lesion on recent PET CT there is worsening masslike consolidation versus most recent CT so local ne oplastic progression cannot be excluded. Other new Left lung findings may reflect active treatment ch magda.
--- NOTE | 2020-06-07 12:02 | CT ---
EXAMINATION TYPE: CT abdomen w con DATE OF EXAM: 06/07/2020 COMPARISON: CT abdomen and pelvis June 15, 2017. PET/CT September 02, 2019. Older CTs. HISTORY: Lung cancer CT DLP: 1.00 mGycm, Automated Exposure Control for Dose Reduction was Utilized. CONTRAST: CT scan of the abdomen and pelvis is performed with oral and with IV Contrast, patient injected with 100 ml mL of Isovue 300. FINDINGS: LUNG BASES: Please refer to same-day CT chest study for further details on the lung bases. LIVER/GB: Stable 2.8 cm thin-walled cyst right hepatic lobe axial image 19. Intraluminal rim hyperden se gallstones redemonstrated PANCREAS: No significant abnormality is seen. SPLEEN: No significant abnormality is seen. ADRENALS: No new adrenal masses. KIDNEYS: Stable 7 mm posterior left renal calculus upper pole level echoes measures 35. Stable 2 mm n onobstructing calculus anteriorly upper to mid pole left kidney axial image 38. Symmetric cortical me dullary uptake and excretion without hydronephrosis seen bilaterally. Some cortical thinning bilatera lly is redemonstrated. Subcentimeter benign-appearing lesion laterally right kidney axial image 45 se karl 9 incidentally noted. BOWEL: Oral contrast reaches the transverse colon. No suspicious small or large bowel dilatation. Sto mach is poorly distended as contrast has completely passed through and is noted suboptimally evaluate d. A few sigmoid colonic diverticula. LYMPH NODES: No greater than 1cm abdominal lymph nodes are appreciated. OSSEOUS STRUCTURES: Moderate multilevel spurring of the spine. Facet arthropathy mid to lower lumbar levels. OTHER: Moderate calcified plaque of the abdominal aorta extends into branch vessels. IMPRESSION: No suspicious new mass or adenopathy to suggest metastatic malignancy.
== END | disposition home or self-care (01) ==
LOC: RADCTMAIN 08:46
PROVIDERS: ATTEND Radiology Radiation Oncology
DX: K76.89 Other specified diseases of liver (principal); R91.8 Other nonspecific abnormal finding of lung field; R93.5 Abnormal findings on diagnostic imaging of other abdominal regions, including retroperitoneum; C34.12 Malignant neoplasm of upper lobe, left bronchus or lung; Z87.891 Personal history of nicotine dependence; Z01.812 Encounter for preprocedural laboratory examination
CPT/HCPCS: 82565; 84520; 71250; 74160; 36415; Q9967

== ENCOUNTER → 2020-06-15 | Outpatient (CLI) | payer MEDICARE ==
--- NOTE | 2020-06-18 09:29 | PE ---
EXAMINATION TYPE: PET CT fusion skull to thigh DATE OF EXAM: 06/15/2020 COMPARISON: Prior PET/CT September 02, 2019. Most recent CT June 07, 2020 chest and abdomen and old er CTs. HISTORY: Left-sided lung cancer diagnosed September 2019 completed radiation treatment in October. TECHNIQUE: Following the intravenous administration of 13.53 mCi of F-18 FDG, whole body images are performed from the skull base to the midthigh. Images are reviewed on the computer in the coronal, a xial, and sagittal planes. Reconstructed rotating images are created on independent workstation and reviewed on the computer. A localization and attenuation correction CT is performed in conjunction with the PET scan. Blood glucose level was 114. SCAN: Subsequent Scan FINDINGS: SKULL BASE AND NECK: No new areas of abnormal hypermetabolic uptake. CHEST, MEDIASTINUM, AND HILAR REGION: Correlating with most recent CT there are persistent scattered bilateral pulmonary nodules. Areas of ossification is thought present in most of nodules. There is mo re irregular masslike consolidation at site of known neoplasm left upper lobe abutting the mediastinu m extending anteriorly superiorly towards the pleural surface axial images 80 through 90. This area c urrently however shows no abnormal hypermetabolic uptake. No suspicious hypermetabolic uptake is seen in scattered pulmonary nodules. No new areas of abnormal hypermetabolic uptake. ABDOMEN AND PELVIS: Normal excretion. No adrenal masses. No new areas of abnormal hypermetabolic upta ke. OSSEOUS STRUCTURES: No new areas of abnormal hypermetabolic uptake. OTHER CT: Persistent left subclavian Mediport catheter. Sjpp-yz-qhkscsep calcified plaque bilateral c arotid bulb level. Persistent cardiomegaly with multi lead pacemaker/defibrillator. Moderate to sever e three-vessel coronary artery calcification. Stable low dense lesion right hepatic dome axial image 126 between 2 to 3 cm in size. Stable 7 mm non obstructing left renal calculus on axial image 158. Cortical thinning both kidneys. Multilevel spurring in the spine redemonstrated moderate calcified plaque of the abdominal aorta exte nds into branch vessels. IMPRESSION: No suspicious hypermetabolic uptake currently to suggest active neoplastic recurrence or new metastatic disease.
== END | disposition home or self-care (01) ==
LOC: RADPETMAIN 11:34
PROVIDERS: ATTEND Radiology Radiation Oncology
DX: C34.12 Malignant neoplasm of upper lobe, left bronchus or lung (principal); Z92.3 Personal history of irradiation; Z87.891 Personal history of nicotine dependence
CPT/HCPCS: 78815; A9552

== ENCOUNTER → 2020-08-08 | Outpatient (CLI) | payer MEDICARE ==
--- NOTE | 2020-08-08 16:11 | CT ---
EXAMINATION TYPE: CT thor lumbar spine wo con DATE OF EXAM: 08/08/2020 COMPARISON: None HISTORY: Lower back/mid kidney area pain CT DLP: 3785.5 mGycm Automated exposure control for dose reduction was used. Unenhanced CT of the thoracolumbar spine was performed. Axial coronal and sagittal images are submitted. FINDINGS: There is moderate multilevel degenerative disc space narrowing and spondylosis. There is no evidence for compression fracture or bony destructive lesion. Multilevel posterior disc bulge seen without fra nk herniation noted on CT. No evidence for central stenosis. No evidence for paraspinal mass or soft tissue destructive lesion. Visualized lungs demonstrate multiple pulmonary nodules. IMPRESSION: 1. No evidence for compression fracture or bony destructive lesion within the [id number]. 2. Multiple pulmonary nodules.
== END | disposition home or self-care (01) ==
LOC: RADCTMAIN 15:25
PROVIDERS: ATTEND Family Medicine
DX: M54.6 Pain in thoracic spine (principal); M54.5 Low back pain; M54.15 Radiculopathy, thoracolumbar region; R91.8 Other nonspecific abnormal finding of lung field
CPT/HCPCS: 72128; 72131

== ENCOUNTER 2020-08-22 11:51 | Inpatient (IN) | payer MEDICARE ==
--- NOTE | 2020-08-22 12:06 | ED ---
Back Pain [facility] - General Chief Complaint: Back Pain/Injury Stated Complaint: Back Pain Time Seen by Provider: 08/22/20 12:01 Source: patient Limitations: no limitations - History of Present Illness Initial Comments: 80-year-old male with history of extensive cardiac history presents to the emergency department with a chief complaint of back pain. patient states he has been dealing with back pain for approximately 6 weeks and has been evaluated multiple times by an orthopedic relocation services specialist as well as primary care physician. Patient states he's had multiple imaging performed on his back as well as PET scan. Patient states recently also had x-rays performed by orthopedic physician with no acute findings. Patient states initially he was started on muscle relaxers steroids and NSAIDs but no significant improvement in symptoms. Patient states then he was started on tramadol for the back pain but today he could not tolerate it. Patient states she woke up this morning and had an acute exacerbation of his low back pain without any radiation to his lower extremities. Denies any saddle anesthesia, urinary retention with overflow incontinence or bowel incontinence. States laying flat typically makes the pain better. Also reports developing midsternal chest pain without radiation morning when he developed the sudden onset of back pain. Denies any shortness of breath. - Related Data Home Medications Medication Instructions Recorded Confirmed Aspirin 81 mg PO Q48H 11/27/16 08/22/20 Multivitamins, Thera [Multivitamin 1 tab PO DAILY 11/27/16 08/22/20 (formulary)] Furosemide [Lasix] 20 mg PO DAILY 02/19/18 08/22/20 Tamsulosin [Flomax] 0.4 mg PO DAILY 02/19/18 08/22/20 Spironolactone 25 mg PO DAILY 09/08/19 08/22/20 Apixaban [Eliquis] 5 mg PO BID 08/22/20 08/22/20 Cyclobenzaprine [Flexeril] 10 mg PO BID PRN 08/22/20 08/22/20 carvediloL [Coreg] 3.125 mg PO BID 08/22/20 08/22/20 traMADol HCL 50 - 100 mg PO Q6H PRN 08/22/20 08/22/20 Allergies Allergy/AdvReac Type Severity Reaction Status Date / Time hydrocodone [From Vicodin] Allergy Hallucinati Verified 08/22/20 13:28 ons Qutxuic-Osy-Fbt Reductase AdvReac MUSCLE PAIN Verified 08/22/20 13:28 Inhibitor Review of Systems ROS Statement: Those systems with pertinent positive or pertinent negative responses have been documented in the HPI. ROS Other: All systems not noted in ROS Statement are negative. 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 carbon monoxide poisoning 08/25 Last Myocardial Infarction Date:: mar 2018 History of Any Multi-Drug Resistant Organisms: None Reported Past Surgical History: Heart Catheterization With Stent, Joint Replacement, Orthopedic Surgery, Pacemaker Additional Past Surgical History / Comment(s): BILAT TK replacement. BILAT KNEE SX. COLONOSCOPY. BILAT CATARACTS REMOVED. 2 heart stents 03/23 Past Anesthesia/Blood Transfusion Reactions: Motion Sickness Date of Last Stent Placement:: 03/23 Type of Cardiac Device: Permanent Pacemaker Device Placement Date:: 02/20 Past Psychological History: No Psychological Hx Reported Past Alcohol Use History: None Reported Past Drug Use History: None Reported - Past Family History Sister(s) Family Medical History: Cancer Brother(s) Family Medical History: Cancer Additional Family Medical History / Comment(s): 3 brothers cancer Father Family Medical History: Coronary Artery Disease (CAD), CVA/TIA, Myocardial Infarction (NC) Additional Family Medical History / Comment(s): Father had TIAs and MIs. He between the ages of 62-68yrs from what pt believes was a NC Mother Family Medical History: Myocardial Infarction (NC) Additional Family Medical History / Comment(s): Mother of a NC at the age of 88yrs. General Exam Limitations: no limitations General appearance: alert, in no apparent distress, obese Head exam: Present: atraumatic, normocephalic, normal inspection Eye exam: Present: normal appearance, PERRL, EOMI Pupils: Present: normal accommodation ENT exam: Present: normal exam, normal oropharynx, mucous membranes moist Neck exam: Present: normal inspection, full ROM. Absent: tenderness Respiratory exam: Present: normal lung sounds bilaterally. Absent: respiratory distress Cardiovascular Exam: Present: regular rate, normal rhythm, normal heart sounds GI/Abdominal exam: Present: soft. Absent: distended, tenderness, guarding, rebound Extremities exam: Present: normal inspection, full ROM, normal capillary refill. Absent: tenderness, pedal edema, joint swelling Back exam: Present: normal inspection, full ROM, vertebral tenderness (mid vertebral tenderness in the lumbar region.). Absent: tenderness, CVA tenderness (R), CVA tenderness (L), muscle spasm, paraspinal tenderness Neurological exam: Present: alert, oriented X3 Psychiatric exam: Present: normal affect, normal mood Skin exam: Present: warm, dry, intact, normal color Course Vital Signs 08/22/20 08/22/20 08/22/20 11:53 13:05 14:00 Temperature 97.8 F Pulse Rate 82 81 76 Respiratory 20 18 18 Rate Blood Pressure 150/112 141/101 156/102 O2 Sat by Pulse 97 98 93 L Oximetry Medical Decision Making - Medical Decision Making 80-year-old male presents emergency Department with chief complaint of back pain. On physical examination, patient has localized tenderness to the lumbar region. palpable DP and PT bilaterally. No weakness or paresthesias. No abdominal tenderness whatsoever. Recent CT imaging of abdomen and pelvis and the thoracic spine reveals no acute findings. Patient also had a PET scan to rule out concerns of malignant tumors considering the patient was diagnosed with stage I lung cancer but has already been treated for. Patient was given 2 doses of Dilaudid with no significant improvement in symptoms. He is feeling slightly better but is not able to sit up, stand or ambulate. I spoke with Dr. Nichols who is willing to admit the patient for further medical management. Case discussed with Dr. Calderón. orthopedics on consult Social work consult - Lab Data Result diagrams: 08/22/20 12:32 08/22/20 12:32 Lab Results 08/22/20 08/22/20 08/22/20 Range/Units 12:32 12:32 12:32 WBC 10.5 (3.8-10.6) k/uL RBC 5.46 (4.30-5.90) m/uL Hgb 16.5 (13.0-17.5) gm/dL Hct 49.4 (39.0-53.0) % MCV 90.6 (80.0-100.0) fL MCH 30.2 (25.0-35.0) pg MCHC 33.3 (31.0-37.0) g/dL RDW 14.5 (11.5-15.5) % Plt Count 259 (150-450) k/uL MPV 7.7 Neutrophils % 80 % Lymphocytes % 9 % Monocytes % 6 % Eosinophils % 4 % Basophils % 0 % Neutrophils # 8.4 H (1.3-7.7) k/uL Lymphocytes # 1.0 (1.0-4.8) k/uL Monocytes # 0.6 (0-1.0) k/uL Eosinophils # 0.4 (0-0.7) k/uL Basophils # 0.0 (0-0.2) k/uL PT 11.5 (9.0-12.0) sec INR 1.1 (<1.2) APTT 22.7 (22.0-30.0) sec Sodium 138 (137-145) mmol/L Potassium 4.4 (3.5-5.1) mmol/L Chloride 102 (98-107) mmol/L Carbon Dioxide 28 (22-30) mmol/L Anion Gap 8 mmol/L BUN 26 H (9-20) mg/dL Creatinine 0.62 L (0.66-1.25) mg/dL Est GFR (CKD-EPI)AfAm >90 (>60 ml/min/1.73 sqM) Est GFR (CKD-EPI)NonAf >90 (>60 ml/min/1.73 sqM) Glucose 121 H (74-99) mg/dL Calcium 9.4 (8.4-10.2) mg/dL Magnesium 1.9 (1.6-2.3) mg/dL Total Bilirubin 0.9 (0.2-1.3) mg/dL AST 22 (17-59) U/L ALT 17 (4-49) U/L Alkaline Phosphatase 113 (38-126) U/L Troponin I (0.000-0.034) ng/mL Total Protein 6.9 (6.3-8.2) g/dL Albumin 3.8 (3.5-5.0) g/dL 08/22/20 Range/Units 12:32 WBC (3.8-10.6) k/uL RBC (4.30-5.90) m/uL Hgb (13.0-17.5) gm/dL Hct (39.0-53.0) % MCV (80.0-100.0) fL MCH (25.0-35.0) pg MCHC (31.0-37.0) g/dL RDW (11.5-15.5) % Plt Count (150-450) k/uL MPV Neutrophils % % Lymphocytes % % Monocytes % % Eosinophils % % Basophils % % Neutrophils # (1.3-7.7) k/uL Lymphocytes # (1.0-4.8) k/uL Monocytes # (0-1.0) k/uL Eosinophils # (0-0.7) k/uL Basophils # (0-0.2) k/uL PT (9.0-12.0) sec INR (<1.2) APTT (22.0-30.0) sec Sodium (137-145) mmol/L Potassium (3.5-5.1) mmol/L Chloride (98-107) mmol/L Carbon Dioxide (22-30) mmol/L Anion Gap mmol/L BUN (9-20) mg/dL Creatinine (0.66-1.25) mg/dL Est GFR (CKD-EPI)AfAm (>60 ml/min/1.73 sqM) Est GFR (CKD-EPI)NonAf (>60 ml/min/1.73 sqM) Glucose (74-99) mg/dL Calcium (8.4-10.2) mg/dL Magnesium (1.6-2.3) mg/dL Total Bilirubin (0.2-1.3) mg/dL AST (17-59) U/L ALT (4-49) U/L Alkaline Phosphatase (38-126) U/L Troponin I <0.012 (0.000-0.034) ng/mL Total Protein (6.3-8.2) g/dL Albumin (3.5-5.0) g/dL - EKG Data EKG Comments: A. fib Disposition Clinical Impression: Intractable back pain Disposition: ADMITTED IP TO THIS [facility] Condition: Stable Instructions (If sedation given, give patient instructions): Acute Low Back Pain (ED) Is patient prescribed a controlled substance at d/c from ED?: No Referrals: Fredy Rodriguez III, MD [Primary Care Provider] - 1-2 days Time of Disposition: 15:40
[2020-08-22] MEDS ORDERED: HYDROmorphone 0.5 MG/0.5 ML SYRINGE IVP STA (12:24)
--- NOTE | 2020-08-22 13:00 | XR ---
EXAMINATION TYPE: XR chest 2V DATE OF EXAM: 08/22/2020 COMPARISON: 09/12/2019 HISTORY: Shortness of breath TECHNIQUE: Frontal and lateral views of the chest are obtained. FINDINGS: Scattered senescent parenchymal changes noted. Hyperinflation compatible with COPD. Bilateral pulmonary nodules redemonstrated. Heart size is stable. Mediastinal structures are stable and grossly unremarkable. No evidence for hilar prominence. Degenerative changes dorsal spine. IMPRESSION: 1. Bilateral pulmonary nodules redemonstrated.
[2020-08-22 13:01] LABS: Basophils % (A) 0 %; Eosinophils # (A) 0.4 k/uL (0-0.7); Eosinophils % (A) 4 %; HCT 49.4 % (39.0-53.0); HGB 16.5 gm/dL (13.0-17.5); Lymphocytes % (A) 9 %; MCH 30.2 pg (25.0-35.0); MCHC 33.3 g/dL (31.0-37.0); MCV 90.6 fL (80.0-100.0); Mean Platelet Volume 7.7; Monocytes # (A) 0.6 k/uL (0-1.0); Monocytes % (A) 6 %; Neutrophils # (A) 8.4 k/uL (1.3-7.7); Neutrophils % (A) 80 %; Platelet Count 259 k/uL (150-450); RBC 5.46 m/uL (4.30-5.90); RDW 14.5 % (11.5-15.5); WBC 10.5 k/uL (3.8-10.6)
[2020-08-22 13:11] LABS: INR 1.1 (<1.2); Partial Thromboplastin Time 22.7 sec (22.0-30.0); Prothrombin Time 11.5 sec (9.0-12.0)
[2020-08-22 13:14] LABS: ALT 17 U/L (4-49); AST 22 U/L (17-59); African American GFR (CKD) >90 (>60 ml/min/1.73 sqM); Albumin 3.8 g/dL (3.5-5.0); Alkaline Phosphatase 113 U/L (38-126); Anion Gap 8 mmol/L; Blood Urea Nitrogen 26 mg/dL (9-20); Calcium 9.4 mg/dL (8.4-10.2); Carbon Dioxide 28 mmol/L (22-30); Chloride 102 mmol/L (98-107); Glucose 121 mg/dL (74-99); Magnesium 1.9 mg/dL (1.6-2.3); Non-African American GFR(CKD) >90 (>60 ml/min/1.73 sqM); Potassium 4.4 mmol/L (3.5-5.1); Sodium 138 mmol/L (137-145); Total Bilirubin 0.9 mg/dL (0.2-1.3); Total Protein 6.9 g/dL (6.3-8.2)
[2020-08-22] MEDS ORDERED: HYDROmorphone 1 MG/ML 1 ML SYRINGE IVP STA (14:33)
[2020-08-22] MEDS ORDERED: IBUPROFEN 400 MG TAB PO PRN (15:40)
[2020-08-22] MEDS ORDERED: ACETAMINOPHEN TAB 325 MG TAB PO PRN (15:40)
[2020-08-22] MEDS ORDERED: LORazepam 2 MG/ML INJ IV PRN (15:40)
[2020-08-22] MEDS ORDERED: traMADol 50 MG TAB PO PRN (15:40)
[2020-08-22] MEDS ORDERED: NALOXONE 0.4 MG/ML 1 ML VIAL IV PRN (15:40)
[2020-08-22] MEDS ORDERED: ALPRAZolam 0.25 MG TAB PO PRN (17:28)
[2020-08-22] MEDS ORDERED: TEMAZEPAM 15 MG CAP PO PRN (17:28)
[2020-08-22] MEDS: SODIUM CHLORIDE 0.9% 1,000 ML IV SCH (17:44)
[2020-08-22] MEDS: methylPREDNISolone SOD SUCCI 125 MG/2 ML VIAL IV SCH (18:00)
[2020-08-22] MEDS: carvediloL 3.125 MG TAB PO SCH (18:00)
[2020-08-22] MEDS: CYCLOBENZAPRINE 10 MG TAB PO PRN (18:07)
[2020-08-22] MEDS: HYDROmorphone 0.5 MG/0.5 ML SYRINGE IVP PRN ×2 (18:11→21:16)
[2020-08-22 18:27] LABS: Appearance,Urine Clear (Clear); Bilirubin,Urine Negative (Negative); Blood,Urine Negative (Negative); Color,Urine Yellow; Glucose,Urine (UA) Negative (Negative); Hyaline Casts,Urine 7 /lpf (0-2); Ketones,Urine Negative (Negative); Leukocyte Esterase,Urine Negative (Negative); Mucus,Urine Many /hpf; Nitrite,Urine Negative (Negative); PH, Urine 5.5 (5.0-8.0); Protein,Urine 1+ (Negative); Specific Gravity,Urine 1.023 (1.001-1.035); Squamous Epithelial Cell,Urine 1 /hpf (0-4); Urobilinogen,Urine <2.0 mg/dL (<2.0); WBC,Urine 1 /hpf (0-5)
--- NOTE | 2020-08-22 18:54 | HP ---
HISTORY AND PHYSICAL DATE OF SERVICE: 08/22/2020 CHIEF COMPLAINT: Back pain. HISTORY OF PRESENT ILLNESS: This 80-year-old gentleman with a past medical history of multiple medical problems, including CAD, CHF, hypertension, history of DJD, history of prostate disorder, history of bilateral lung necrotizing granulomas diagnosed in 2014, being followed by Dr. Rodriguez, Dr. Watts and Dr. Summers, was complaining of significant back pain. The patient was evaluated by Dr. Cee in the outpatient setting and apparently was being managed medically. Currently the patient is complaining of severe back pain which is radiating to the left and right sides, not to the legs, which is aggravated with even the slightest and the patient is admitted for further evaluation and treatment. There is no history of any fever, rigor or chills at this time. The patient is morbidly obese with a BMI of 41.8. COVID-19 is negative at this time. PAST MEDICAL HISTORY: History of CAD, history of CHF, hypertension, history of myocardial infarction, DJD, history of prostate disorder, bilateral lung necrotizing granulomas. HOME MEDICATIONS: 1. Ultram 50 to 100 mg q.6 p.r.n. 2. Coreg 3.125 mg p.o. b.i.d. 3. Flomax 0.4 daily. 4. Aldactone 25 mg daily. 5. Multivitamins 1 p.o. daily. 6. Lasix 20 mg daily. 7. Flexeril 10 mg b.i.d. p.r.n. 8. Aspirin 81 mg q.48 hours. 9. Eliquis 5 mg p.o. b.i.d. ALLERGIES: VICODIN AND STATINS. FAMILY HISTORY: History of cancer in 3 brothers. SOCIAL HISTORY: Previous history of smoking. No current smoking or alcohol intake. REVIEW OF SYSTEMS: ENT: No diminished hearing. No diminished vision. CARDIOVASCULAR SYSTEM: No angina, palpitations. RESPIRATORY SYSTEM: As mentioned earlier. GI: As mentioned earlier. : As mentioned earlier. NERVOUS SYSTEM: No numbness, weakness. ALLERGY/IMMUNOLOGY: No asthma, hayfever. MUSCULOSKELETAL: As mentioned earlier. HEMATOLOGY/ONCOLOGY: No history of anemia. ENDOCRINE: No history of diabetes, hypothyroidism. CONSTITUTIONAL: As mentioned earlier. DERMATOLOGY: Negative. RHEUMATOLOGY: Negative. PSYCHIATRY: As mentioned earlier. PHYSICAL EXAMINATION: Patient alert and oriented x3. Pulse is 72, blood pressure 154/114, respirations 16, temperature 98 degrees, pulse ox 94% on room air. HEENT: Conjunctivae normal. Oral mucosa moist. NECK: No jugular venous distention. No carotid bruit. No lymph node enlargement. CARDIOVASCULAR SYSTEM: S1, S2 muffled. RESPIRATORY SYSTEM: Breath sounds diminished at the bases. A few scattered rhonchi. No crackles. ABDOMEN: Soft, obese, non-tender. No mass palpable. LEGS: No edema. No swelling. Ewkgeeuu-qjd-xhqfjap test is negative. NERVOUS SYSTEM: Higher functions as mentioned earlier. Cranial nerves 2 to 12 grossly intact. Moves all 4 limbs. No focal motor or sensory deficits. Movements of the back are severely painful with the slightest movements. SKIN: No ulcer, rash, bleeding. JOINTS: No active deforming arthropathy. LABS: CBC within normal limits. APTT is 22.7 and creatinine is 0.62 and glucose 121. ASSESSMENT: 1. Severe intractable back pain with failure of outpatient treatment with possible lumbar degenerative joint disease. 2. Elevated random glucose. 3. Super morbid obesity with body mass index of 41.8. 4. Gait dysfunction. 5. History of coronary artery disease. 6. History of congestive heart failure. 7. Hypertension. 8. History of myocardial infarction. 9. History of degenerative joint disease. 10.History of prostate disorder. 11.History of bilateral lung necrotizing granuloma. 12.History of left knee infection. 13.History of coronary artery disease, stent. 14.History of permanent pacemaker. 15.Remote history of nicotine dependence. 16.FULL CODE. RECOMMENDATIONS AND DISCUSSION: In this 80-year-old gentleman who presented with multiple complex medical issues, we will monitor the patient closely, continue the current medications, continue with symptomatic treatment. I would recommend empiric IV steroid therapy. The patient does not have any fever currently. I would also recommend consultation with Dr. Cee. DVT prophylaxis. Resume the home medications once they are conformed. Overall prognosis guarded. Discussed with the patient's at the bedside. A copy of this dictation is being forwarded to Dr. Rodriguez, who is the primary physician. MMGIGIL / TROYN: [id number] / MTDD
[2020-08-22] MEDS: APIXABAN 5 MG TAB PO SCH (20:04)
[2020-08-23] MEDS: HYDROmorphone 0.5 MG/0.5 ML SYRINGE IVP PRN ×4 (00:22→21:22)
[2020-08-23] MEDS: methylPREDNISolone SOD SUCCI 125 MG/2 ML VIAL IV SCH ×3 (00:22→11:15)
[2020-08-23] MEDS: SODIUM CHLORIDE 0.9% 1,000 ML IV SCH ×2 (06:20→16:37)
[2020-08-23] MEDS: APIXABAN 5 MG TAB PO SCH ×2 (08:09→21:10)
[2020-08-23] MEDS: CYCLOBENZAPRINE 10 MG TAB PO PRN (08:09)
[2020-08-23] MEDS: MULTIVITAMINS, THERA 1 EACH TAB PO SCH (08:09)
[2020-08-23] MEDS: SPIRONOLACTONE 25 MG TAB PO SCH (08:09)
[2020-08-23] MEDS: TAMSULOSIN 0.4 MG CAP.ER.24H PO SCH (08:09)
[2020-08-23] MEDS: carvediloL 3.125 MG TAB PO SCH ×2 (08:10→16:38)
[2020-08-23] MEDS: PANTOPRAZOLE 40 MG TABLET PO SCH (08:10)
[2020-08-23] MEDS: FUROSEMIDE 20 MG TAB PO SCH (08:10)
[2020-08-23] MEDS ORDERED: ASPIRIN 81 MG PO SCH (09:00)
[2020-08-23] MEDS ORDERED: ACETAMINOPHEN TAB 500 MG TAB PO PRN (09:01)
--- NOTE | 2020-08-23 09:01 | P.CNOR ---
History of Present Illness - HPI Consult date: 08/23/20 Consult reason: low back pain History of present illness: This is a 80-year-old male who is known to me from the office who presented to the emergency department with intractable and continuing low back pain. He recently saw me in the office and we discussed different options for him. The patient has had low back pain for some time now it does not radiated only sits directly in his low back. He has no numbness or tingling in his legs no weakness in his legs and no pain that goes down his legs. He denies any bowel bladder issues he denies any perineal numbness or tingling. He states that his back pain disc at so bad that he can get out of bed. He denies any other injury to his back. He states it feels more muscular in nature to cross the small his back and is fairly localized. He denies any tenderness to palpation. He denies any fevers chills shortness breath or chest pain at this time. As of accomplished medical history as well as super morbid obesity and a history of lung carcinoma. Review of Systems 14 points review of systems completed and as stated in HPI, all other systems reviewed are negative. Past Medical History Past Medical History: Coronary Artery Disease (CAD), Cancer, Heart Failure, Hypertension, Myocardial Infarction (PA), Osteoarthritis (OA), Prostate Disorder Additional Past Medical History / Comment(s): Bilateral lungs necrotizing granulomas diagnosed in [address] scan every 6 months and is followed by [facility] total knee infection-went into blood and was on Rocephin for 6 weeks in 2011-pt and spouse cannot recall if it was MRSA. carbon monoxide poisoning 23 September 2019 diagnosis lung cancer Last Myocardial Infarction Date:: mar 2018 History of Any Multi-Drug Resistant Organisms: None Reported Past Surgical History: Heart Catheterization With Stent, Joint Replacement, Orthopedic Surgery, Pacemaker Additional Past Surgical History / Comment(s): BILAT TK replacement. BILAT KNEE SX. COLONOSCOPY. BILAT CATARACTS REMOVED. 2 heart stents 03/23 Past Anesthesia/Blood Transfusion Reactions: Motion Sickness Date of Last Stent Placement:: 03/23 Type of Cardiac Device: Permanent Pacemaker Device Placement Date:: 02/20 Past Psychological History: No Psychological Hx Reported Additional Psychological History / Comment(s): Pt resides with his spouse. He uses no assistive device. He drives. Smoking Status: Former smoker Past Alcohol Use History: None Reported Additional Past Alcohol Use History / Comment(s): Pt started smoking in 1953 and quit in 1977 Past Drug Use History: None Reported - Past Family History Sister(s) Family Medical History: Cancer Brother(s) Family Medical History: Cancer Additional Family Medical History / Comment(s): 3 brothers cancer Father Family Medical History: Coronary Artery Disease (CAD), CVA/TIA, Myocardial Infarction (PA) Additional Family Medical History / Comment(s): Father had TIAs and MIs. He between the ages of 62-68yrs from what pt believes was a PA Mother Family Medical History: Myocardial Infarction (PA) Additional Family Medical History / Comment(s): Mother of a PA at the age o f 88yrs. Medications and Allergies Home Medications Medication Instructions Recorded Confirmed Type Aspirin 81 mg PO Q48H 11/27/16 08/22/20 History Multivitamins, Thera [Multivitamin 1 tab PO DAILY 11/27/16 08/22/20 History (formulary)] Furosemide [Lasix] 20 mg PO DAILY 02/19/18 08/22/20 History Tamsulosin [Flomax] 0.4 mg PO DAILY 02/19/18 08/22/20 History Spironolactone 25 mg PO DAILY 09/08/19 08/22/20 History Apixaban [Eliquis] 5 mg PO BID 08/22/20 08/22/20 History Cyclobenzaprine [Flexeril] 10 mg PO BID PRN 08/22/20 08/22/20 History carvediloL [Coreg] 3.125 mg PO BID 08/22/20 08/22/20 History traMADol HCL 50 - 100 mg PO Q6H PRN 08/22/20 08/22/20 History Allergies Allergy/AdvReac Type Severity Reaction Status Date / Time hydrocodone [From Vicodin] Allergy Hallucinati Verified 08/22/20 13:28 ons Qmisayw-Lrl-Jaj Reductase AdvReac MUSCLE PAIN Verified 08/22/20 13:28 Inhibitor Physical Examination Osteopathic Statement: *. No significant issues noted on an osteopathic structural exam other than those noted in the History and Physical/Consult. PHYSICAL EXAMINATION: Vitals: Stable at this time General: Awake, alert, appropriate for age, in no acute distress. HEENT: No unusual neck masses around region of lateral neck triangle, thyroid, supraclavicular groove. Heart: Regular rate and rhythm, normal S1, S2 and no murmur/gallop. Lungs: Clear to auscultation bilaterally with no use of accessory muscles. Extremities: Skin warm and dry without no acute lesions, coloration, temperature, skin intact, no tenderness or erythema. Integument: Hairy patches: Absent Dorsal skin dimples: Absent Cafe au lait spots: Absent Surgical incisions: None Palpation: Please see Pain drawing on Intake sheet for further detail. (Tenderness = T, Nontender = NT, Swelling = S, Ecchymosis = E) Findings on Midline and paraspinal palpation and percussion: Cervical: NT Thoracic: NT Lumbar: Mild paralumbar tenderness negative ballottement Sacral: NT Special findings: None, negative CVA tenderness POSTURAL and MUSCULO-SKELETAL EVALUATION: Neck ROM: Unrestricted in six directions Lumbar ROM: Unrestricted in six directions Shoulder ROM: Symmetric in abduction, ER/IR Hip ROM: Symmetric in abduction, adduction, ER/IR Knee ROM: Symmetric and intact in Flexion / extension Hands: Normal appearing structure L and R Feet: Normal appearing structure L and R VASCULAR STATUS : Wrist Pulses: 2/4 bilateral radial and ulnar Pedal Pulses: 2/4 bilateral DP and PT Color: Normal Edema: None NEUROLOGIC EXAMINATION: Mental Status: Awake and alert, fully oriented, with normal attention, concentration and memory, and fluent, appropriate speech. Cranial Nerves: I: Olfactory not tested. II: Visual acuity normal, no visual field deficit noted with confrontation. III,IV: Normal pupillary reflexes & intact extraocular movements without nystagmus. V,: Intact symmetrical facial sensation. VII: Intact symmetrical facial motor movement VIII: Hearing intact. IX,X: Intact gag, swallow, & normal voice. XI: Sternocleidomastoid, trapezius function intact. XII: Tongue midline with normal movements. Special Tests: L'hermitte's Sign: Absent Spurling'Sign: Absent Bilateral Cubital percussion test: Absent Bilateral Jossue-Tinel sign - Carpal region: Absent Bilateral Straight Leg Raising: Absent Bilateral Motor Exam (0-5/5, N/T) STRENGTH UPPER EXTREMITY Shoulder Abd (Not part of [place] Motor score): RIGHT 5 LEFT 5 Elbow Flexors: RIGHT 5 LEFT 5 Elbow Extensor: RIGHT 5 LEFT 5 Wrrist Dorsiflexors: RIGHT 5 LEFT 5 Finger Abductor: RIGHT 5 LEFT 5 Business Initiatives Manager: RIGHT 5 LEFT 5 LOWER EXTREMITY Hip Flexor (Not part of [place] Motor Score): RIGHT 5 LEFT 5 Knee Flexor: RIGHT 5 LEFT 5 Knee Extensor: RIGHT 5 LEFT 5 Ankle Dorsiflexion: RIGHT 5 LEFT 5 Ankle Plantarflexion: RIGHT 5 LEFT 5 EHL: RIGHT 5 LEFT 5 FHL: RIGHT 5 LEFT 5 [place] Motor Score: RIGHT 50/50 LEFT 50/50 REFLEXES Biecp: RIGHT 2 LEFT 2 Tricep: RIGHT 2 LEFT 2 Brachioradialis: RIGHT 2 LEFT 2 Patellar: RIGHT 2 LEFT 2 Achilles: RIGHT 2 LEFT 2 Pathological Reflexes Santamaria's: RIGHT Absent LEFT Absent Babinski: RIGHT Absent LEFT Absent Clonus: RIGHT None LEFT None SENSORY Joint Position: Intact bilaterally Vibration Intact bilaterally Pain and LT sense Intact C5-T1 and L2-S1 Dermatomal deficit None Gait and Functional Evaluation: Ambulatory aids: Independent normally however he is unable to get out of bed secondary to pain in his back at this time Hand and finger dexterity intact bilaterally. Disdiadochokinesis examination negative bilaterally. Results Thoracic and lumbar spine CT from 08/08/2020 is really reviewed. This demonstrates overall spondylotic changes to the thoracic and lumbar spine that are mild to moderate. There is no instability noted. There are no fractures dislocations or other lesions noted. The patient does have a low bone density in his vertebral bodies with Hounsfield units measuring an average around 100 indicating osteoporosis. He does have facet arthrosis as well. Disc heights and spaces are fairly well maintained for his age and body habitus. No acute findings CT myelogram of the lumbar spine pending - Labs Labs: Abnormal Lab Results - Last 24 Hours (Table) 08/22/20 08/22/20 08/22/20 Range/Units 12:32 12:32 12:32 Neutrophils # 8.4 H (1.3-7.7) k/uL ESR 28 H (0-15) mm/hr BUN 26 H (9-20) mg/dL Creatinine 0.62 L (0.66-1.25) mg/dL Glucose 121 H (74-99) mg/dL C-Reactive Protein (<10.0) mg/L Urine Protein (Negative) Hyaline Casts (0-2) /lpf Urine Mucus (None) /hpf 08/22/20 08/22/20 Range/Units 12:32 18:18 Neutrophils # (1.3-7.7) k/uL ESR (0-15) mm/hr BUN (9-20) mg/dL Creatinine (0.66-1.25) mg/dL Glucose (74-99) mg/dL C-Reactive Protein 37.4 H (<10.0) mg/L Urine Protein 1+ H (Negative) Hyaline Casts 7 H (0-2) /lpf Urine Mucus Many H (None) /hpf H & H 08/22/20 Range/Units 12:32 Hgb 16.5 (13.0-17.5) gm/dL Hct 49.4 (39.0-53.0) % Coagulation 08/22/20 Range/Units 12:32 INR 1.1 (<1.2) Result Diagrams: 08/22/20 12:32 08/22/20 12:32 Assessment and Plan Assessment: 80-year-old male with multiple medical comorbidities with intractable low back pain without radiculopathy Plan: -Appreciate medicine management. -Pain control: Scheduled Tylenol 1000, add Toradol 15 mg, schedule Flexeril, limit opioids. Continue scheduled Decadron. -Aggressive ambulation protocol. OOB with all meals. OOB or in chair 4-5x daily. -PT/OT -TEDs, SCDs, mechanical ppx. OK for heparin today. Early ambulation is best. -GI ppx. -CT myelogram pending -Trend labs. -Dispo: Depending on findings of myelogram and discussed the patient at length different treatment options. We will currently get his pain under control and get him some physical therapy. Even if he does have some minor disc bulges in the area do not feel that acute surgical intervention is warranted at this time. He understood and stated that he agrees with this as he does not want acute surgery or surgery right now. Patient's body habitus and his current medical comorbidities preclude this anyways. If he should have any bowel bladder incontinence weakness in the legs peroneal numbness or tingling or other emergent signs and symptoms we may have to do something however at this point I do not feel that is necessary. Myelogram is purely to rule out any emergent compressive problems which I doubt at this time secondary to the types of pain that he is complaining of. We will monitor him closely. No current intervention warranted orthopedically stable.
[2020-08-23 09:08] LABS: Basophils # (A) 0.01 X 10*3/uL (0.00-0.10); Basophils % (A) 0.1 %; Eosinophils # (A) 0 X 10*3/uL (0.04-0.35); Eosinophils % (A) 0 %; HCT 48.1 % (39.6-50.0); HGB 15.8 g/dL (13.0-17.0); Lymphocytes % (A) 7.2 %; MCH 30.1 pg (27.0-32.0); MCHC 32.8 g/dL (32.0-37.0); MCV 91.6 fL (80.0-97.0); Mean Platelet Volume 9.9 fL (9.5-12.2); Monocytes # (A) 0.08 X 10*3/uL (0.20-1.00); Monocytes % (A) 1.1 %; Neutrophils # (A) 6.28 X 10*3/uL (1.80-7.70); Neutrophils % (A) 90.3 %; Platelet Count 247 X 10*3/uL (140-440); RBC 5.25 X 10*6/uL (4.40-5.60); RDW 14.4 % (11.5-14.5); WBC 6.96 X 10*3/uL (4.50-10.00)
[2020-08-23] MEDS ORDERED: PREMYELOGRAM MEDICATION REVIEW 1 EACH MISC PO PRN (10:01)
[2020-08-23 10:02] LABS: African American GFR (CKD) 99.2 (60.0-200.0); Anion Gap 11.4 mmol/L (4.00-12.00); BUN/Creat Ratio 32.5 Ratio (12.00-20.00); Calcium 8.9 mg/dL (8.7-10.3); Carbon Dioxide 26.6 mmol/L (21.6-31.8); Non-African American GFR(CKD) 85.6 (60.0-200.0); Potassium 5.1 mmol/L (3.5-5.5)
[2020-08-23] MEDS: KETOROLAC 15 MG/ML 1 ML VIAL IVP SCH ×3 (11:14→23:45)
--- NOTE | 2020-08-23 14:12 | CT ---
EXAMINATION TYPE: CT thor lumbar spine wo con DATE OF EXAM: 08/23/2020 COMPARISON: August 08, 2020 HISTORY: generalized back pain CT DLP: 4177.[address] of the thoracic and lumbar spine was performed. Bone and soft tissue window settings a re submitted as well as coronal and sagittal reconstructions. There is air identified within the T10 vertebral segment with air extending into the T9 T10 disc. The re is mild loss of height involving the T10 vertebral segment. Small amount of air is also noted at t he T10-T11 disc space which has also occurred in the interval. There is mild interval paraspinal soft tissue edema. The findings may reflect underlying infection and I cannot exclude osteomyelitis/disci tis. Consider MRI if felt to be indicated. No additional similar findings are seen throughout the thoracic and lumbar levels. Multilevel degener ative disc disease with spondylosis seen throughout. Multilevel mild disc bulging seen. Mild disc bul ging at L5-S1. No central stenosis identified. No obvious bony destructive process seen. Multiple pul monary nodules as described previously. IMPRESSION: 1. T10 vertebral body air is noted with mild loss of height identified. Disc space air is also identi fied as noted above. The findings have occurred in the interval and underlying infection is a conside ration. No evidence for bone destruction at this time. 2. Multilevel degenerative disc disease and spondylosis.
--- NOTE | 2020-08-23 16:36 | PN ---
PROGRESS NOTE DATE OF SERVICE: 08/23/2020 This 80-year-old gentleman who was admitted with severe intractable back pain and failure of outpatient treatment with possible lumbar DJD is being closely monitored at this time. Dr. Cee from Orthopedic Surgery is following the patient, patient with conservative line of management. The patient is not willing for CT myelogram. Patient as well. The CT scan of the back showed T10 mild loss of height and underlying infection is apparently a concern also from the CT scan. Multilevel DJD and spondylosis also noted. The white count is 6.96 and glucose is 172. PAST MEDICAL HISTORY: Reviewed. REVIEW OF SYSTEMS: CARDIOVASCULAR SYSTEM: No angina. RESPIRATORY SYSTEM: As mentioned earlier. GI: As mentioned earlier. GI: No dysuria. NERVOUS SYSTEM: No numbness or weakness. CURRENT MEDICATIONS: Current medications are reviewed and include Tylenol, Xanax, Eliquis, aspirin, Coreg, Flexeril, Lasix. Doses are reviewed. PHYSICAL EXAMINATION: Patient is alert and oriented x3. Pulse 80. Blood pressure 136/94, respirations 16, temperature 97.9, pulse ox 93% on room air. HEENT: Conjunctivae normal. NECK: No jugular venous distention. CARDIOVASCULAR: S1, S2 muffled. RESPIRATORY: Breath sounds diminished at the bases. A few scattered rhonchi and crackles. ABDOMEN: Soft, nontender. LEGS: No edema. NERVOUS SYSTEM: No focal deficits. LABS: CBC within normal limits. Sodium 140, potassium 5.1. The CRP is 37.4. ESR is 28. ASSESSMENT: 1. Severe intractable back pain with failure of outpatient treatment with possible lumbar degenerative joint disease, rule out epidural abscess. 2. Mildly elevated ESR and CRP. 3. Elevated random glucose. 4. Super morbid obesity with body mass index of 41.8. 5. Gait dysfunction. 6. History of coronary artery disease. 7. History of congestive heart failure. 8. Hypertension. 9. History of myocardial infarction. 10.History of prostate disorder. 11.History of bilateral lung necrotizing granuloma. 12.History of left knee infection. 13.History of coronary artery disease, stent. 14.History of permanent pacemaker. 15.Remote history of nicotine dependence. 16.FULL CODE. RECOMMENDATIONS AND DISCUSSION: I recommend to continue current medications, continue symptomatic treatment. Otherwise, I would obtain a set of cultures and also obtain Infectious Disease evaluation. Otherwise, continue to monitor. Closely follow with Orthopedic Surgery. Prognosis guarded. Further recommendations to follow. Symptomatic treatment to continue. MMODL / IJN: [id number] / MTDD
[2020-08-23] MEDS: CYCLOBENZAPRINE 10 MG TAB PO SCH ×2 (16:38→21:10)
--- NOTE | 2020-08-23 16:48 | P.PN ---
Progress Note - Text Progress Note Date: 08/23/20 Computed tomography scan of the thoracic and lumbar spine reviewed. Patient was unable to have myelogram secondary to being on blood thinners. They would not do myelogram during the weekend as well and would not get a myelogram until Thursday. Patient really has no radicular pain or neurologic symptoms and just simply has low back pain. The exam is essentially unchanged in the low back region from previously he has some spondylosis at L5-S1 he has facet arthrosis throughout his overall alignment is well-maintained there is no acute or large compression compressive lesions noted. There is no fractures dislocations or other abnormalities noted within the lumbar spine. Incidentally there is a increase in anterior within the T10 body which could possibly be related to an infective process and this is different from previous exams however it is difficult to say. There is no bony destruction in this area. There is a small amount of air within the T9 10 disc space however this is likely secondary to spondylotic changes. There is no other soft tissue abnormalities noted there is no masses noted. The visualized portions of the patient's pacemaker appear to be unchanged. Continue conservative management at this time No surgical indications currently
[2020-08-23 17:10] LABS: Glucose,Whole Blood 284 mg/dL (75-99)
--- NOTE | 2020-08-24 00:49 | CONS ---
CONSULTATION DATE OF SERVICE: 08/23/2020 REASON FOR CONSULTATION: Abnormal CT and a question of back infection HISTORY OF PRESENT ILLNESS: The patient is a 80-year-old male presenting to the ER at [facility] yesterday for evaluation of back pain in this patient whose pain has been going on since beginning of June 2020. The patient denies having any history of any trauma. The patient's pain has been mostly in the mid back area with some radiation on the sides. Initially mentioned on the left but now more on the right side. The patient described the pain to be sharp with intensity almost 10 out of 10 and no radiation down the legs. Denies any bowel or bladder problem. The patient mentioned he did have CT of the chest and abdomen back on June 07 and did not show any acute findings. The patient has been treated by the Orthopedics as well as primary care physician with pain medication as well as muscle relaxants without any improvement. The patient denies having any history of any trauma or any falls and denies having any fever or any chills. With these symptoms, the patient was evaluated by the ER physician. On arrival to the ER, the patient was afebrile and no fever has been recorded in last 24 hours. The patient did have a normal white count. His sedimentation rate was only 28 with a CRP of 37.4. Orthopedics saw the patient and the patient did have a thoracolumbar spine CT and this was done without contrast, it has been read by the radiologist with T10 vertebral body with mild loss of height identified, disc space area is also identified as noted above with consideration for possible infection that has prompted this infectious disease consultation. Blood cultures have been obtained and the patient is currently not on any systemic antibiotic therapy. REVIEW OF SYSTEMS: Positive points have been mentioned in HPI. Rest of systems are negative. PAST MEDICAL HISTORY: Coronary artery disease, heart failure, hypertension, UT, osteoarthritis, prostate disorder. PAST SURGICAL HISTORY: PTCA with stent, pacemaker placement, bilateral knee surgery. SOCIAL HISTORY: Denies smoking, drinking or drug use. FAMILY HISTORY: Both brother and sister have a history of cancer. Father history of heart disease. ALLERGIES: TO HYDROCODONE AND STATINS. MEDICATIONS: Include the patient is currently on Tylenol, Xanax, Eliquis, aspirin, Coreg, Flexeril, Lasix, Dilaudid, Toradol, Theragran, Narcan, Protonix, Aldactone, Flomax, Restoril, Ultram. PHYSICAL EXAMINATION: Blood pressure is 132/88 with a pulse of 66. Temperature is 97.4. He is 93% on room air. General description: The patient is an elderly male lying in bed in no distress. No tachypnea or accessory muscles of respiration use. HEENT: Examination shows no pallor or scleral icterus. Oral mucous membranes dry. No pharyngeal erythema or thrush. NECK: Trachea is central. No thyromegaly. LUNGS: Unlabored breathing. Clear to auscultation. No wheeze or crackles. HEART: S1-S2 regular rate and rhythm. ABDOMEN: Soft, no tenderness. No guarding. No rigidity. EXTREMITIES: No edema of the feet. Examination of the mid back area. Spine did not tenderness. However, the patient did have paraspinous tenderness. No swelling. No redness was noticed. NEUROLOGICAL: Patient is awake, alert, oriented times three. Mood and affect normal. LABS: Hemoglobin is 15.8, white count 6.96, BUN of 26, creatinine 0.8. Urine is negative. DIAGNOSTIC IMPRESSION AND PLAN: Patient admitted to the hospital with intractable back pain. This patient's symptoms have been going on for more than 2 months now without having any history of any trauma in this patient with no fever or elevated white count. However, he did have abnormal CT thoracolumbar spine which was done without any contrast showing some air with concerning for infection, though clinically with no fever or elevated white count and no significant elevated sedimentation rate or CRP making this to be less likely but not entirely excluded. PLAN: 1. We will obtain Interventional Radiology consult for aspirate of the T10 vertebra for culture. 2. We will hold on any systemic antibiotic therapy until cultures are done. Afterward, the patient will be started on empiric vancomycin, cefepime while waiting for the culture to finalize. 3. We will follow on his clinical condition and further adjust medication if needed. Thank you for this consultation. We will follow this patient along with you. MMODL / IJN: [id number] /
[2020-08-24] MEDS: KETOROLAC 15 MG/ML 1 ML VIAL IVP SCH ×4 (06:18→23:17)
[2020-08-24] MEDS: HYDROmorphone 0.5 MG/0.5 ML SYRINGE IVP PRN ×2 (07:38→14:15)
[2020-08-24] MEDS: PANTOPRAZOLE 40 MG TABLET PO SCH (07:38)
[2020-08-24] MEDS: SPIRONOLACTONE 25 MG TAB PO SCH (09:10)
[2020-08-24] MEDS: carvediloL 3.125 MG TAB PO SCH ×2 (09:10→17:35)
[2020-08-24] MEDS: FUROSEMIDE 20 MG TAB PO SCH (09:10)
[2020-08-24] MEDS: TAMSULOSIN 0.4 MG CAP.ER.24H PO SCH (09:10)
[2020-08-24] MEDS: MULTIVITAMINS, THERA 1 EACH TAB PO SCH (09:11)
--- NOTE | 2020-08-24 09:11 | P.PN ---
Subjective Progress Note Date: 08/24/20 Principal diagnosis: Back pain Patient seen and examined this morning. He is lying in bed. He states pain in his back still. He denies any bowel or bladder issues denies perineal numbness or tingling. States really no pain down his legs either. He has been up to the bathroom however now much more. Denies any fevers chills shortness of breath or chest pain at this time Objective - Vital Signs Vital signs: Vital Signs Temp 97.5 F L 08/24/20 07:00 Pulse 64 08/24/20 07:00 Resp 18 08/24/20 07:00 BP 168/87 08/24/20 07:00 Pulse Ox 95 08/24/20 07:00 Intake & Output 08/23/20 08/24/20 08/24/20 18:59 06:59 18:59 Other: Voiding Method Urinal # Voids 2 2 - Exam PHYSICAL EXAMINATION: Vitals: Table at this time General: Awake, alert, appropriate for age, in no acute distress. HEENT: No unusual neck masses around region of lateral neck triangle, thyroid, supraclavicular groove. Heart: Regular rate and rhythm, normal S1, S2 and no murmur/gallop. Lungs: Clear to auscultation bilaterally with no use of accessory muscles. Extremities: Skin warm and dry without no acute lesions, coloration, temperature, skin intact, no tenderness or erythema. Integument: Hairy patches: Absent Dorsal skin dimples: Absent Cafe au lait spots: Absent Surgical incisions: None Palpation: Please see Pain drawing on Intake sheet for further detail. (Tenderness = T, Nontender = NT, Swelling = S, Ecchymosis = E) Findings on Midline and paraspinal palpation and percussion: Cervical: NT Thoracic: NT Lumbar: Mild tennis palpation bilateral lumbar region no ballottement Sacral: NT Special findings: Step-offs POSTURAL and MUSCULO-SKELETAL EVALUATION: Neck ROM: Unrestricted in six directions Lumbar ROM: Unrestricted in six directions Shoulder ROM: Symmetric in abduction, ER/IR Hip ROM: Symmetric in abduction, adduction, ER/IR Knee ROM: Symmetric and intact in Flexion / extension Hands: Normal appearing structure L and R Feet: Normal appearing structure L and R VASCULAR STATUS : Wrist Pulses: 2/4 bilateral radial and ulnar Pedal Pulses: 2/4 bilateral DP and PT Color: Normal Edema: None NEUROLOGIC EXAMINATION: Mental Status: Awake and alert, fully oriented, with normal attention, concentration and memory, and fluent, appropriate speech. Cranial Nerves: I: Olfactory not tested. II: Visual acuity normal, no visual field deficit noted with confrontation. III,IV: Normal pupillary reflexes & intact extraocular movements without nystagmus. V,: Intact symmetrical facial sensation. VII: Intact symmetrical facial motor movement VIII: Hearing intact. IX,X: Intact gag, swallow, & normal voice. XI: Sternocleidomastoid, trapezius function intact. XII: Tongue midline with normal movements. Special Tests: L'hermitte's Sign: Absent Spurling'Sign: Absent Bilateral Cubital percussion test: Absent Bilateral Jossue-Tinel sign - Carpal region: Absent Bilateral Straight Leg Raising: Absent Bilateral Motor Exam (0-5/5, N/T) STRENGTH UPPER EXTREMITY Shoulder Abd (Not part of [place] Motor score): RIGHT 5 LEFT 5 Elbow Flexors: RIGHT 5 LEFT 5 Elbow Extensor: RIGHT 5 LEFT 5 Wrrist Dorsiflexors: RIGHT 5 LEFT 5 Finger Abductor: RIGHT 5 LEFT 5 Child Care Group Leader: RIGHT 5 LEFT 5 LOWER EXTREMITY Hip Flexor (Not part of [place] Motor Score): RIGHT 5 LEFT 5 Knee Flexor: RIGHT 5 LEFT 5 Knee Extensor: RIGHT 5 LEFT 5 Ankle Dorsiflexion: RIGHT 5 LEFT 5 Ankle Plantarflexion: RIGHT 5 LEFT 5 EHL: RIGHT 5 LEFT 5 FHL: RIGHT 5 LEFT 5 [place] Motor Score: RIGHT 50/50 LEFT 50/50 REFLEXES Biecp: RIGHT 2 LEFT 2 Tricep: RIGHT 2 LEFT 2 Brachioradialis: RIGHT 2 LEFT 2 Patellar: RIGHT 2 LEFT 2 Achilles: RIGHT 2 LEFT 2 Pathological Reflexes Santamaria's: RIGHT Absent LEFT Absent Babinski: RIGHT Absent LEFT Absent Clonus: RIGHT None LEFT None SENSORY Joint Position: Intact bilaterally Vibration Intact bilaterally Pain and LT sense Intact C5-T1 and L2-S1 Dermatomal deficit None Gait and Functional Evaluation: Ambulatory aids: Walker Hand and finger dexterity intact bilaterally. Disdiadochokinesis examination negative bilaterally. - Labs CBC & Chem 7: 08/23/20 05:59 08/23/20 05:59 Labs: Abnormal Lab Results - Last 24 Hours (Table) 08/23/20 08/23/20 08/23/20 Range/Units 05:59 05:59 17:08 Immature Gran # 0.09 H (0.00-0.04) X 10*3/uL Lymphocytes # 0.50 L (0.90-5.00) X 10*3/uL Monocytes # 0.08 L (0.20-1.00) X 10*3/uL Eosinophils # 0 L (0.04-0.35) X 10*3/uL BUN/Creatinine Ratio 32.50 H (12.00-20.00) Ratio Glucose 172 H (70-110) mg/dL POC Glucose (mg/dL) 284 H (75-99) mg/dL Microbiology - Last 24 Hours (Table) 08/23/20 18:00 Urine Culture - Preliminary Urine,Clean Catch Assessment and Plan Assessment: 80-year-old male with multiple medical comorbidities with intractable low back pain without radiculopathy Plan: -Appreciate medicine management. -Pain control: Scheduled Tylenol 1000, add Toradol 15 mg, schedule Flexeril, limit opioids. Continue scheduled Decadron. -Aggressive ambulation protocol. OOB with all meals. OOB or in chair 4-5x daily. -PT/OT -TEDs, SCDs, mechanical ppx. OK for heparin today. Early ambulation is best. -GI ppx. -Computed tomography scan shows no acute changes in the lumbar spine. There is interval change within the T10 vertebral body with some air in the body. Infection is not ruled out. It does not seem to travel anywhere. No intradural or extradural regions of compression. No severe compression were noted. No other lesions fractures or dislocations noted. -Trend labs. -Dispo: Home when stable. At a long talk with the patient at this time I do not feel that there is urgent emergent surgical needs for the patient. Would recommend blood cultures and consult for infectious disease of T10 possible infection. Patient is not any evidence of compression or radiculopathy. Would recommend continued PT OT pain control and mobilization. I will be out of town and I discussed this with the patient however we do have coverage. No current intervention warranted orthopedically stable.
[2020-08-24] MEDS: APIXABAN 5 MG TAB PO SCH (09:12)
[2020-08-24] MEDS: CYCLOBENZAPRINE 10 MG TAB PO SCH ×3 (09:36→22:06)
[2020-08-24] MEDS: SENNOSIDES 8.6 MG TAB PO PRN (12:07)
[2020-08-24] MEDS: SODIUM CHLORIDE 0.9% 1,000 ML IV SCH ×2 (12:09→20:05)
--- NOTE | 2020-08-24 15:07 | CDI ---
Documentation Clarification Form Date: 08/24/2020 02:39:56 PM From: Jacquie Gan RN CCDS Admit Date: 08/22/2020 03:52:00 PM Patient Name: De Prieto Visit Number: [id number] Discharge Date: ATTENTION: The Clinical Documentation Specialists (CDI) and [employer] Coding Staff appreciate your assistance in clarifying documentation. Please respond to the clarification below the line at the bottom and electronically sign. The CDI & [employer] Coding staff will review the response and follow-up if needed. Please note: Queries are made part of the Legal Health Record. If you have any questions, please contact the author of this message via ITS. Dr. Maldonado, CHF is documented in the H&P under medical history 08/22. History/Risk Factors: 80-year old male presents to the ED with severe back pain being treated outpatient with Dr. Cee, Per H&P 08/22. Medical History: CHF, HTN, CAD and DJD, per H&P 08/22 Clinical Indicators: VS/Pulse OX 08/22: B/P 150/112, HR 82, Temp 97.8 F Oral, RR 20, SpO2 97% ra Echocardiogram Results03/21/2018: Mild global hypokinesis of LV. Left ventricular systolic function is mold- moderately impaired, EF 40-45%. Mild mitral regurgitation. Tricuspid regurgitation. Chest X Ray 08/22: Bilateral pulmonary nodules redemonstrated Treatment: 08/22 Coreg 3.125mg PO BID FITO, 08/23 Lasix 20mg PO Daily FITO, 08/23 Aldactone 25mg PO Daily FITO. In your professional opinion, can you please clarify the acuity and type of CHF if known? Chronic Systolic Heart Failure Chronic Systolic and Diastolic Heart Failure Unable to Determine Other, please specify (Last Revision: October 2017) Unable to Determine MTDD
[2020-08-24 15:42] LABS: African American GFR (CKD) 99.2 (60.0-200.0); Anion Gap 7.7 mmol/L (4.00-12.00); C Reactive Protein 2.7 mg/dL (0.0-0.8); Calcium 8.9 mg/dL (8.7-10.3); Carbon Dioxide 25.3 mmol/L (21.6-31.8); Non-African American GFR(CKD) 85.6 (60.0-200.0); Potassium 4.3 mmol/L (3.5-5.5)
[2020-08-24 16:15] LABS: Basophils # (A) 0.01 X 10*3/uL (0.00-0.10); Basophils % (A) 0.1 %; Eosinophils # (A) 0.02 X 10*3/uL (0.04-0.35); Eosinophils % (A) 0.1 %; HGB 15.3 g/dL (13.0-17.0); Lymphocytes # (A) 0.86 X 10*3/uL (0.90-5.00); Lymphocytes % (A) 6.2 %; MCH 30.1 pg (27.0-32.0); MCHC 32.6 g/dL (32.0-37.0); MCV 92.3 fL (80.0-97.0); Mean Platelet Volume 10.5 fL (9.5-12.2); Monocytes # (A) 1.07 X 10*3/uL (0.20-1.00); Monocytes % (A) 7.7 %; Neutrophils # (A) 11.89 X 10*3/uL (1.80-7.70); Neutrophils % (A) 85.2 %; Platelet Count 258 X 10*3/uL (140-440); RBC 5.09 X 10*6/uL (4.40-5.60); RDW 14.5 % (11.5-14.5); WBC 13.95 X 10*3/uL (4.50-10.00)
--- NOTE | 2020-08-24 17:33 | PN ---
PROGRESS NOTE DATE OF SERVICE: 08/24/2020 REASON FOR FOLLOWUP: Abnormal CT and a question of diskitis/osteomyelitis. INTERVAL HISTORY: The patient is currently afebrile. The patient is feeling better today. The patient's pain has improved compared to yesterday. He is able to move around a little bit more freely. The patient denies having any chest pain or shortness of breath or cough. No abdominal pain or diarrhea. PHYSICAL EXAMINATION: Blood pressure 144/85 with a pulse of 55, temperature 97.5. He is 94% on room air. General description is an elderly male lying in bed in no distress. RESPIRATORY SYSTEM: Unlabored breathing. Clear to auscultation anteriorly. HEART: S1, S2. Regular rate and rhythm. ABDOMEN: Soft. No tenderness. LABS: Hemoglobin is 15.3, white count . CRP is down to 0.7. Blood culture has been negative. DIAGNOSTIC IMPRESSION AND PLAN: Patient admitted to hospital with intractable back pain with a question of possible fracture. I discussed the x-ray with the radiologist, Dr. James, in detail. His opinion is more of a possible fracture, which could be pathological. The CT-guided aspirate could not be completed today, as the patient's Eliquis needed to be put on hold, with a possible aspirate on Thursday. The patient does not look toxic. No fever. No elevated white count or CRP; suspicion low for diskitis; hence we will hold on any systemic antibiotic therapy to increase the culture that could be done on Thursday. This was explained to the patient in layman's terms, and all questions were answered. MMODL / IJN: [id number] /
[2020-08-24 20:13] LABS: Erythrocyte Sedimentation Rate 25 mm/Hr (0-20)
[2020-08-25] MEDS: HYDROmorphone 0.5 MG/0.5 ML SYRINGE IVP PRN ×4 (01:10→21:55)
[2020-08-25] MEDS: KETOROLAC 15 MG/ML 1 ML VIAL IVP SCH ×4 (05:45→23:42)
[2020-08-25] MEDS: TAMSULOSIN 0.4 MG CAP.ER.24H PO SCH (07:53)
[2020-08-25] MEDS: MULTIVITAMINS, THERA 1 EACH TAB PO SCH (07:53)
[2020-08-25] MEDS: PANTOPRAZOLE 40 MG TABLET PO SCH (07:54)
[2020-08-25] MEDS: carvediloL 3.125 MG TAB PO SCH ×2 (07:54→17:25)
[2020-08-25] MEDS: CYCLOBENZAPRINE 10 MG TAB PO SCH ×3 (07:54→21:53)
[2020-08-25] MEDS: SPIRONOLACTONE 25 MG TAB PO SCH (07:54)
[2020-08-25] MEDS: FUROSEMIDE 20 MG TAB PO SCH (07:54)
[2020-08-25 09:06] LABS: Basophils # (A) 0.02 X 10*3/uL (0.00-0.10); Basophils % (A) 0.2 %; Eosinophils # (A) 0.31 X 10*3/uL (0.04-0.35); Eosinophils % (A) 3.7 %; HCT 44.1 % (39.6-50.0); HGB 14.6 g/dL (13.0-17.0); Lymphocytes # (A) 1.33 X 10*3/uL (0.90-5.00); Lymphocytes % (A) 15.8 %; MCH 30.2 pg (27.0-32.0); MCHC 33.1 g/dL (32.0-37.0); MCV 91.3 fL (80.0-97.0); Monocytes # (A) 1.06 X 10*3/uL (0.20-1.00); Monocytes % (A) 12.6 %; Neutrophils # (A) 5.64 X 10*3/uL (1.80-7.70); Neutrophils % (A) 67.1 %; Platelet Count 233 X 10*3/uL (140-440); RBC 4.83 X 10*6/uL (4.40-5.60); RDW 14.7 % (11.5-14.5); WBC 8.41 X 10*3/uL (4.50-10.00)
[2020-08-25] MEDS ORDERED: VANCOMYCIN IV PER PHARMACY 1 EACH MISC MISCELLANE PRN (09:20)
[2020-08-25] MEDS ORDERED: VANCOMYCIN 2,000 MG in SODIUM CHLORIDE 0.9% 500 ML 500 ML IVPB ONE (09:30)
[2020-08-25 09:47] LABS: African American GFR (CKD) 99.2 (60.0-200.0); Anion Gap 7.2 mmol/L (4.00-12.00); BUN/Creat Ratio 42.5 Ratio (12.00-20.00); C Reactive Protein 1.8 mg/dL (0.0-0.8); Calcium 8.8 mg/dL (8.7-10.3); Carbon Dioxide 29.8 mmol/L (21.6-31.8); Non-African American GFR(CKD) 85.6 (60.0-200.0); Potassium 4.4 mmol/L (3.5-5.5)
--- NOTE | 2020-08-25 10:01 | P.PN ---
Subjective Progress Note Date: 08/24/20 Principal diagnosis: Intractable low back pain without radiculopathy Abnormal CT/questionable discitis/osteomyelitis versus possible fracture 80-year-old male patient admitted to the hospital with intractable back pain; CT of the lumbar spine revealed changes within T10 vertebral body with question of pathological fracture versus infection; orthopedic surgery and ID on board 08/24/2020 Patient is seen and evaluated in room with family in physical therapy at bedside; reports ambulation with therapy which caused worsening of pain; pain medication is effective Vital signs remained stable except for elevated blood pressure of 168/87 CT has been reviewed by radiology, orthopedic surgery and ID; patient is scheduled for guided aspiration of T10; patient is currently on L Valle which has been put on hold with plans for CT-guided aspiration on Thursday Objective - Vital Signs Vital signs: Vital Signs Temp 97.5 F L 08/24/20 07:00 Pulse 64 08/24/20 07:00 Resp 18 08/24/20 08:00 BP 168/87 08/24/20 07:00 Pulse Ox 95 08/24/20 07:00 Intake & Output 08/23/20 08/24/20 08/24/20 18:59 06:59 18:59 Other: Voiding Method Urinal Urinal # Voids 2 2 - Exam - Constitutional General appearance: Present: average body habitus, cooperative, no acute distress - EENT Eyes: Present: anicteric sclerae, EOMI, PERRLA, normal appearance ENT: Present: hearing grossly normal, normal oropharynx Ears: bilateral: normal - Neck Neck: Present: normal ROM. Absent: lymphadenopathy, rigidity, thyromegaly Carotids: negative: bruit present Thyroid: bilateral: normal size, negative: enlarged, nodule - Respiratory Respiratory: bilateral: CTA, negative: rales, rhonchi, wheezing - Cardiovascular Rhythm: regular Heart sounds: normal: S1, S2 Abnormal Heart Sounds: Absent: systolic murmur, diastolic murmur - Gastrointestinal General gastrointestinal: Present: normal bowel sounds, soft. Absent: distended, organomegaly, tenderness - Genitourinary Genitourinary Comment(s): deferred - Integumentary Integumentary: Present: normal turgor. Absent: jaundiced, rash, ulcer - Neurologic Neurologic: Present: CNII-XII intact. Absent: focal deficits - Musculoskeletal Musculoskeletal: Present: gait normal, strength equal bilaterally - Psychiatric Psychiatric: Present: A&O x's 3, appropriate affect, intact judgment & insight - Labs CBC & Chem 7: 08/25/20 06:02 08/25/20 06:02 Labs: Abnormal Lab Results - Last 24 Hours (Table) 08/23/20 Range/Units 17:08 POC Glucose (mg/dL) 284 H (75-99) mg/dL Microbiology - Last 24 Hours (Table) 08/23/20 18:00 Urine Culture - Preliminary Urine,Clean Catch Assessment and Plan Assessment: 1. Intractable low back pain without radiculopathy - Orthopedic surgery on board; continue with PT/OT - Continue with pain control to workup and treatment is completed; patient is currently on Dilaudid, Toradol and tramadol 2. Abnormal CT/questionable discitis/osteomyelitis versus possible fracture - Patient is scheduled for CT-guided aspiration on 08/27/2020; Eliquis remains on hold - We will continue to trend CRP and sed rate; monitor pro-calcitonin levels - Orthopedic surgery and ID on board; patient remains on IV vancomycin 3. CAD/CHF/ permanent pacemaker placement; stable on beta blockers; patient remains on Lasix 20 mg daily and Aldactone 25 mg daily 4. Hypertension; Coreg 3.125 mg twice a day 5. BPH; Flomax 0.4 mg by mouth daily DVT prophylaxis; SCDs only CODE STATUS; full code
[2020-08-25] MEDS: traMADol 50 MG TAB PO PRN ×2 (10:04→16:15)
[2020-08-25 13:11] LABS: Erythrocyte Sedimentation Rate 25 mm/Hr (0-20)
--- NOTE | 2020-08-25 17:21 | PN ---
PROGRESS NOTE DATE OF SERVICE: 08/25/2020 REASON FOR FOLLOWUP: Back pain with abnormal CT with evidence of bacteremia. INTERVAL HISTORY: Patient is currently afebrile. The patient's pain to the mid back area is currently controlled. The patient denies having any chest pain. No shortness of breath or cough. No nausea. No vomiting. No abdominal pain or diarrhea. PHYSICAL EXAMINATION: Blood pressure 149/90 with a pulse of 69. Temperature is 97.7. He is 92% on room air. General description: The patient is an elderly male lying in bed in no distress. Respiratory system: Unlabored breathing. Clear to auscultation anteriorly. Heart S1, S2. Regular rate and rhythm. ABDOMEN: Soft, no tenderness. LABS: Hemoglobin is 14.8, white count 8.41, creatinine 0.8, blood culture now showing a Gram- positive cocci. DIAGNOSTIC IMPRESSION AND PLAN: Patient with mid back pain with abnormal CT concerning for diskitis/osteomyelitis. Waiting for the CT-guided aspirate on Thursday, now with evidence of positive blood cultures. Blood culture has been repeated to document clearance of bacteremia. Vancomycin has been added. Family at the bedside questions answered. MMODL / IJN: [id number] /
[2020-08-25] MEDS: SODIUM CHLORIDE 0.9% 1,000 ML IV SCH (21:54)
[2020-08-25] MEDS ORDERED: VANCOMYCIN 2,000 MG in SODIUM CHLORIDE 0.9% 500 ML 500 ML IVPB SCH (22:00)
[2020-08-26] MEDS: KETOROLAC 15 MG/ML 1 ML VIAL IVP SCH (05:46)
[2020-08-26] MEDS: HYDROmorphone 0.5 MG/0.5 ML SYRINGE IVP PRN ×2 (06:26→09:37)
[2020-08-26] MEDS: traMADol 50 MG TAB PO PRN ×2 (08:08→16:12)
[2020-08-26] MEDS: FUROSEMIDE 20 MG TAB PO SCH (09:07)
[2020-08-26] MEDS: MULTIVITAMINS, THERA 1 EACH TAB PO SCH (09:07)
[2020-08-26] MEDS: SPIRONOLACTONE 25 MG TAB PO SCH (09:07)
[2020-08-26] MEDS: PANTOPRAZOLE 40 MG TABLET PO SCH (09:07)
[2020-08-26] MEDS: TAMSULOSIN 0.4 MG CAP.ER.24H PO SCH (09:07)
[2020-08-26] MEDS: CYCLOBENZAPRINE 10 MG TAB PO SCH ×3 (09:07→22:15)
[2020-08-26 09:12] LABS: Basophils # (A) 0.02 X 10*3/uL (0.00-0.10); Basophils % (A) 0.3 %; Eosinophils # (A) 0.42 X 10*3/uL (0.04-0.35); Eosinophils % (A) 5.3 %; HGB 14.6 g/dL (13.0-17.0); Lymphocytes % (A) 15.2 %; MCHC 32.4 g/dL (32.0-37.0); MCV 92.6 fL (80.0-97.0); Mean Platelet Volume 9.7 fL (9.5-12.2); Monocytes # (A) 0.84 X 10*3/uL (0.20-1.00); Monocytes % (A) 10.6 %; Neutrophils # (A) 5.39 X 10*3/uL (1.80-7.70); Platelet Count 231 X 10*3/uL (140-440); RBC 4.86 X 10*6/uL (4.40-5.60); RDW 14.6 % (11.5-14.5); WBC 7.92 X 10*3/uL (4.50-10.00)
[2020-08-26 09:31] LABS: African American GFR (CKD) 104.8 (60.0-200.0); Anion Gap 4.6 mmol/L (4.00-12.00); Calcium 8.4 mg/dL (8.7-10.3); Carbon Dioxide 31.4 mmol/L (21.6-31.8); Non-African American GFR(CKD) 90.4 (60.0-200.0); Potassium 4.6 mmol/L (3.5-5.5)
[2020-08-26] MEDS: carvediloL 3.125 MG TAB PO SCH ×2 (09:37→16:15)
[2020-08-26] MEDS ORDERED: HYDROmorphone 1 MG/ML 1 ML SYRINGE IM PRN (10:48)
[2020-08-26] MEDS ORDERED: VANCOMYCIN 2,000 MG in SODIUM CHLORIDE 0.9% 500 ML 500 ML IVPB SCH (11:00)
--- NOTE | 2020-08-26 15:25 | P.PN ---
Subjective Progress Note Date: 08/26/20 Principal diagnosis: Intractable low back pain without radiculopathy Abnormal CT/questionable discitis/osteomyelitis versus possible fracture 80-year-old male patient admitted to the hospital with intractable back pain; CT of the lumbar spine revealed changes within T10 vertebral body with question of pathological fracture versus infection; orthopedic surgery and ID on board 08/26/2020 Patient is seen and evaluated in room with at bedside; reports ambulation with therapy which caused worsening of pain; patient reports improvement in pain by increasing frequency of Dilaudid Vital signs remained stable except for elevated blood pressure of 168/87 CT has been reviewed by radiology, orthopedic surgery and ID; patient is scheduled for guided aspiration of T10; patient is currently on L Valle which has been put on hold with plans for CT-guided aspiration on Thursday Objective - Vital Signs Vital signs: Vital Signs Temp 98.4 F 08/26/20 04:42 Pulse 66 08/26/20 04:42 Resp 16 08/26/20 04:42 BP 163/81 08/26/20 04:42 Pulse Ox 97 08/26/20 04:42 Intake & Output 08/25/20 08/26/20 08/26/20 18:59 06:59 18:59 Intake Total 860 Output Total 500 Balance 360 Intake: Intake, IV Titration 500 Amount Vancomycin 2,000 mg In 500 Sodium Chloride 0.9% 500 ml 500 ml @ 167 mls/hr IVPB Q16H [facility] Rx#: [id number] Oral 360 Output: Urine 500 Other: Voiding Method Urinal Urinal # Voids 2 1 - Exam - Constitutional General appearance: Present: average body habitus, cooperative, no acute distress - EENT Eyes: Present: anicteric sclerae, EOMI, PERRLA, normal appearance ENT: Present: hearing grossly normal, normal oropharynx Ears: bilateral: normal - Neck Neck: Present: normal ROM. Absent: lymphadenopathy, rigidity, thyromegaly Carotids: negative: bruit present Thyroid: bilateral: normal size, negative: enlarged, nodule - Respiratory Respiratory: bilateral: CTA, negative: rales, rhonchi, wheezing - Cardiovascular Rhythm: regular Heart sounds: normal: S1, S2 Abnormal Heart Sounds: Absent: systolic murmur, diastolic murmur - Gastrointestinal General gastrointestinal: Present: normal bowel sounds, soft. Absent: distended, organomegaly, tenderness - Genitourinary Genitourinary Comment(s): deferred - Integumentary Integumentary: Present: normal turgor. Absent: jaundiced, rash, ulcer - Neurologic Neurologic: Present: CNII-XII intact. Absent: focal deficits - Musculoskeletal Musculoskeletal: Present: gait normal, strength equal bilaterally - Psychiatric Psychiatric: Present: A&O x's 3, appropriate affect, intact judgment & insight - Labs CBC & Chem 7: 08/26/20 06:01 08/26/20 06:01 Labs: Abnormal Lab Results - Last 24 Hours (Table) 08/25/20 08/26/20 08/26/20 Range/Units 06:02 06:01 06:01 RDW 14.6 H (11.5-14.5) % Immature Gran # 0.05 H (0.00-0.04) X 10*3/uL Eosinophils # 0.42 H (0.04-0.35) X 10*3/uL ESR 25 H (0-20) mm/Hr BUN 28.0 H (9.0-27.0) mg/dL BUN/Creatinine Ratio 40.00 H (12.00-20.00) Ratio Calcium 8.4 L (8.7-10.3) mg/dL Microbiology - Last 24 Hours (Table) 08/24/20 08:00 Blood Culture Gram Stain - Preliminary Blood Blood Culture - Preliminary Coagulase Negative Staph 08/23/20 16:40 Blood Culture - Preliminary Blood No Growth after 48 hours 08/24/20 08:00 Blood Culture - Final Blood Assessment and Plan Assessment: 1. Intractable low back pain without radiculopathy - Orthopedic surgery on board; continue with PT/OT - Continue with pain control to workup and treatment is completed; patient is currently on Dilaudid, Toradol and tramadol 2. Abnormal CT/questionable discitis/osteomyelitis versus possible fracture - Patient is scheduled for CT-guided aspiration on 08/27/2020; Eliquis remains on hold - We will continue to trend CRP and sed rate; monitor pro-calcitonin levels - Orthopedic surgery and ID on board; patient remains on IV vancomycin 3. CAD/CHF/ permanent pacemaker placement; stable on beta blockers; patient remains on Lasix 20 mg daily and Aldactone 25 mg daily 4. Hypertension; Coreg 3.125 mg twice a day 5. BPH; Flomax 0.4 mg by mouth daily DVT prophylaxis; SCDs only CODE STATUS; full code
[2020-08-26] MEDS: HYDROmorphone 1 MG/ML 1 ML SYRINGE IVP PRN ×2 (17:51→22:24)
--- NOTE | 2020-08-26 19:11 | PN ---
PROGRESS NOTE DATE OF SERVICE: 08/26/2020 REASON FOR FOLLOWUP: 1. Positive blood culture. 2. Abnormal CT with a question of T10 fracture versus infection. INTERVAL HISTORY: Patient is currently afebrile. The patient is feeling better. He is breathing comfortably. The patient denies having any chest pain or shortness of breath or cough. The patient's back pain has much improved. No abdominal pain. No diarrhea. PHYSICAL EXAMINATION: Blood pressure 142/87 with a pulse of 57, temperature 98.2. He is 92% on room air. GENERAL DESCRIPTION: The patient is an elderly male lying in bed in no distress. RESPIRATORY SYSTEM: Unlabored breathing, clear to auscultation anteriorly. HEART S1, S2. Regular rate and rhythm. ABDOMEN: Soft, no tenderness. LABS: Hemoglobin is 14.8, white count 7.92, BUN of 28, creatinine 0.7. CRP is 1.7, sed rate is only 25. Blood culture with coagulase-negative Staph. DIAGNOSTIC IMPRESSION AND PLAN: 1. Patient admitted to the hospital with positive blood cultures with Coagulase negative Staph likely skin contaminant. infection and patient no fever or elevated white count. Vancomycin was discontinued. 2. Patient with T10 abnormality seen on the CT, possibility fracture, question pathological fracture. Clinically not behaving as discitis. Waiting for the CT- guided aspirate of this area and cultures. 3. We will monitor the patient closely off antibiotic therapy. was discussed in detail with the patient and . All questions were answered. MMODL / IJN: [id number] /
[2020-08-26] MEDS: SENNOSIDES 8.6 MG TAB PO PRN (22:35)
[2020-08-27] MEDS: HYDROmorphone 1 MG/ML 1 ML SYRINGE IVP PRN ×5 (05:07→21:38)
[2020-08-27] MEDS: FUROSEMIDE 20 MG TAB PO SCH (07:22)
[2020-08-27] MEDS: CYCLOBENZAPRINE 10 MG TAB PO SCH ×3 (07:22→21:38)
[2020-08-27] MEDS: TAMSULOSIN 0.4 MG CAP.ER.24H PO SCH (07:23)
[2020-08-27] MEDS: MULTIVITAMINS, THERA 1 EACH TAB PO SCH (07:23)
[2020-08-27] MEDS: SPIRONOLACTONE 25 MG TAB PO SCH (07:23)
[2020-08-27] MEDS: carvediloL 3.125 MG TAB PO SCH ×2 (07:23→16:12)
[2020-08-27] MEDS: PANTOPRAZOLE 40 MG TABLET PO SCH (07:23)
[2020-08-27 09:17] LABS: INR 1.1 (<1.2); Prothrombin Time 11.8 sec (9.0-12.0)
[2020-08-27 09:18] LABS: Basophils # (A) 0.02 X 10*3/uL (0.00-0.10); Basophils % (A) 0.3 %; Eosinophils # (A) 0.48 X 10*3/uL (0.04-0.35); Eosinophils % (A) 6.3 %; HCT 44.3 % (39.6-50.0); HGB 14.5 g/dL (13.0-17.0); Lymphocytes # (A) 1.01 X 10*3/uL (0.90-5.00); Lymphocytes % (A) 13.4 %; MCHC 32.7 g/dL (32.0-37.0); MCV 91.5 fL (80.0-97.0); Mean Platelet Volume 9.7 fL (9.5-12.2); Monocytes # (A) 0.78 X 10*3/uL (0.20-1.00); Monocytes % (A) 10.3 %; Neutrophils # (A) 5.21 X 10*3/uL (1.80-7.70); Neutrophils % (A) 68.9 %; Platelet Count 224 X 10*3/uL (140-440); RBC 4.84 X 10*6/uL (4.40-5.60); RDW 14.4 % (11.5-14.5); WBC 7.56 X 10*3/uL (4.50-10.00)
[2020-08-27 09:32] LABS: African American GFR (CKD) 111.6 (60.0-200.0); Anion Gap 5.8 mmol/L (4.00-12.00); BUN/Creat Ratio 33.33 Ratio (12.00-20.00); Calcium 8.5 mg/dL (8.7-10.3); Carbon Dioxide 30.2 mmol/L (21.6-31.8); Non-African American GFR(CKD) 96.3 (60.0-200.0); Potassium 4.3 mmol/L (3.5-5.5)
[2020-08-27] MEDS: traMADol 50 MG TAB PO PRN (11:25)
[2020-08-27] MEDS: SENNOSIDES 8.6 MG TAB PO PRN (13:18)
--- NOTE | 2020-08-27 15:49 | P.PN ---
Subjective Progress Note Date: 08/27/20 Principal diagnosis: Low back pain Patient was examined today at bedside, his is present. Patient continues to have low back pain, no significant improvement to the weekend. He is still taking both oral and IV pain medication. He has no notable weakness in the bilateral lower extremities or radicular symptoms of the bilateral lower extremities. He has no acute changes in bowel or bladder. I was contacted by the nurse today sitting patient. Radiology did not do the CT-guided biopsy of the T10 vertebrae. He continues to be afebrile, he has no elevated white count at this time. Objective - Vital Signs Vital signs: Vital Signs Temp 97.4 F L 08/27/20 11:21 Pulse 75 08/27/20 11:21 Resp 18 08/27/20 11:21 BP 131/86 08/27/20 11:21 Pulse Ox 90 L 08/27/20 11:21 Intake & Output 08/26/20 08/27/20 08/27/20 18:59 06:59 18:59 Intake Total 1070 880 Output Total 1250 400 Balance -180 480 Intake: Oral 1070 880 Output: Urine 1250 400 Other: Voiding Method Urinal Urinal # Voids 1 4 - Exam Gen: AOx3, NAD VSS stable at this time Integument: No obvious skin changes noted throughout the cervical, thoracic or lumbar spine Palpation: Tenderness with palpation along the midline and paraspinal regions of the lower lumbar. He is nontender throughout the cervical or thoracic spine. ROM: Full range of motion in all major muscle groups in the bilateral upper and lower extremities Sensory Exam: Senory exam to light touch is intact C5-T1 [place] exam to light touch is intact L2-S1 Motor: 5 out of 5 strength is appreciated with bilateral shoulder abduction, wrist extension, wrist flexion, elbow extension, intrinsics 5 out of 5 strength is appreciated with the bilateral lower extremities with hip flexion, knee extension, knee flexion, plantar flexion, dorsiflexion, EHL, FHL Reflexes: 2/4 in all UE and LE Negative Timothy's bilaterally negative clonus bilaterally negative Babinski bilaterally - Labs CBC & Chem 7: 08/27/20 05:40 08/27/20 05:40 Labs: Abnormal Lab Results - Last 24 Hours (Table) 08/27/20 08/27/20 Range/Units 05:40 05:40 Immature Gran # 0.06 H (0.00-0.04) X 10*3/uL Eosinophils # 0.48 H (0.04-0.35) X 10*3/uL BUN/Creatinine Ratio 33.33 H (12.00-20.00) Ratio Calcium 8.5 L (8.7-10.3) mg/dL Microbiology - Last 24 Hours (Table) 08/25/20 09:36 Blood Culture - Preliminary Blood No Growth after 48 hours 08/23/20 16:40 Blood Culture - Preliminary Blood No Growth after 72 hours Assessment and Plan Assessment: Low back pain with no radicular symptoms Abnormal findings computed tomography scan T10 vertebral body Other medical comorbidities Plan: Discussed with the internal medicine team today regarding the patient's current care. Consult will be placed for pain management Dr. Cee is unavailable until next week, I will attempt contact him remotely to discuss patient's course and possible treatment options As of 08/24/2020 and his most recent CT results, patient demonstrated no acute need for surgical intervention and this was reviewed with the patient with my attending a bedside. Patients labs continued to be non-suggestive of a acute discitis. IV antibiotics have been discontinued Infectious disease recommendations appreciated Continue PT/OT evaluation. Recommend use of walker all time with ambulation GI and DVT prophylaxis per primary medical service Further recommendations to follow Time with Patient: Less than 30
--- NOTE | 2020-08-27 16:22 | P.PN ---
Subjective Progress Note Date: 08/27/20 Intractable low back pain without radiculopathy Abnormal CT/questionable discitis/osteomyelitis versus possible fracture 80-year-old male patient admitted to the hospital with intractable back pain; CT of the lumbar spine revealed changes within T10 vertebral body with question of pathological fracture versus infection; orthopedic surgery and ID on board 08/26/2020 Patient is seen and evaluated in room with at bedside; reports ambulation with therapy which caused worsening of pain; patient reports improvement in pain by increasing frequency of Dilaudid Vital signs remained stable except for elevated blood pressure of 168/87 CT has been reviewed by radiology, orthopedic surgery and ID; patient is scheduled for guided aspiration of T10; patient is currently on L Valle which has been put on hold with plans for CT-guided aspiration on Thursday08/27/2020 Patient is seen in follow-up and continues to have extreme back pain. Patient was scheduled to undergo aspiration of the T10 vertebral area with the possibility of infection. Infectious disease and orthopedic surgery are following. Per Dr. Baum radiology there is minimal area of concern at the T10 that would cause for aspirating and not willing to perform. Anti- coagulation is currently on hold and will continue to do so. Pain management consulted and pending at this time. Review of systems: Constitutional: No reports of fatigue, fever, or chills Cardiovascular: No reports of chest pain or palpitations Respiratory: No reports of shortness of breath or cough GI: No reports of nausea, vomiting, or diarrhea : No reports of dysuria or retention Neurovascular: reports weakness no reports of numbness, reports continued back pain All medications have been reviewed Objective - Vital Signs Vital signs: Vital Signs Temp 97.7 F 08/27/20 05:15 Pulse 94 08/27/20 05:15 Resp 18 08/27/20 05:15 BP 143/70 08/27/20 05:15 Pulse Ox 91 L 08/27/20 05:15 Intake & Output 08/26/20 08/27/20 08/27/20 18:59 06:59 18:59 Intake Total 1070 Output Total 1250 400 Balance -180 -400 Intake: Oral 1070 Output: Urine 1250 400 Other: Voiding Method Urinal Urinal # Voids 1 - Exam Gen: This is a 80-year-old male laying in bed awake, alert and oriented 3, well-developed, well-nourished, obese. HEENT: Head is atraumatic, normocephalic. Pupils equal, round. Sclerae is anicteric. NECK: Supple. No JVD. No lymphadenopathy. No thyromegaly. LUNGS: Breath sounds diminished eye laterally with no wheezing or rhonchi noted. No intercostal retractions. HEART: Regular rate and rhythm. No murmur. ABDOMEN: Soft. Bowel sounds are present. No masses. No tenderness. EXTREMITIES: No pedal edema. No calf tenderness. NEUROLOGICAL: Patient is awake, alert and oriented x3. Cranial nerves 2 through 12 are grossly intact. - Labs CBC & Chem 7: 08/27/20 05:40 08/27/20 05:40 Labs: Abnormal Lab Results - Last 24 Hours (Table) 08/27/20 08/27/20 Range/Units 05:40 05:40 Immature Gran # 0.06 H (0.00-0.04) X 10*3/uL Eosinophils # 0.48 H (0.04-0.35) X 10*3/uL BUN/Creatinine Ratio 33.33 H (12.00-20.00) Ratio Calcium 8.5 L (8.7-10.3) mg/dL Microbiology - Last 24 Hours (Table) 08/23/20 16:40 Blood Culture - Preliminary Blood No Growth after 72 hours 08/25/20 09:36 Blood Culture - Preliminary Blood No Growth after 24 hours Assessment and Plan Assessment: -Intractable lower back pain without radiculopathy orthopedic surgery following along with PT/OT therapy and pain management will be consulted and is pending at this time. -Abnormal CT/questionable discitis/osteomyelitis versus possible prior fracture: Infectious disease is following. Recommending CT-guided aspiration of the T10 area although radiology unable to perform. Will continue to hold anticoagulation at this time -Coronary artery disease -Congestive heart failure history -Permanent pacemaker -Hypertension -BPH -DVT prophylaxis: SCDs only early ambulation -Full code Plan: Discussed with orthopedic surgery and will consult pain management as radiology unable to perform T10 aspiration at this time. Will also discuss with infectious disease about further treatments and IV antibiotics and the possibility of needing transfer to a tertiary care center. PT/OT to evaluate the patient.
--- NOTE | 2020-08-27 17:46 | PN ---
PROGRESS NOTE DATE OF SERVICE: 08/27/2020 REASON FOR FOLLOWUP: Abnormal CT with a question of T10 infection versus compression fracture. INTERVAL HISTORY: The patient is currently afebrile. The patient is breathing comfortably. The patient's back pain seems to have some improvement with the pain medication. Denies having any chest pain or shortness of breath or cough. No abdominal pain or any diarrhea. PHYSICAL EXAMINATION: Blood pressure 131/86, pulse of 75, temperature 97.4. He is 98% on room air. General description is an elderly male lying in bed in no distress. RESPIRATORY SYSTEM: Unlabored breathing. Clear to auscultation anteriorly. HEART: S1, S2. Regular rate and rhythm. ABDOMEN: Soft. No tenderness. LABS: Hemoglobin is 14.5, white count 7.56. BUN of 20, creatinine 0.6. Blood culture repeat so far negative. DIAGNOSTIC IMPRESSION AND PLAN: Patient with intractable back pain with a T10 questionable compression fracture versus pathologic fracture versus diskitis/osteomyelitis. Dr. Baum from Interventional Radiology says he will not be able to do a CT-guided aspirate of this area, to which Dr. James previously agreed. Unfortunately the patient's back surgeon is not available, as he is off . Would recommend possible transfer to tertiary care versus patient having this aspirate of the area by Surgery next week. We will hold on any systemic antibiotic therapy, as clinical suspicion is low for underlying diskitis or osteomyelitis and to increase the yield of culture. MMODL / IJN: [id number] /
[2020-08-28] MEDS: HYDROmorphone 1 MG/ML 1 ML SYRINGE IVP PRN ×5 (01:31→22:41)
[2020-08-28] MEDS: TAMSULOSIN 0.4 MG CAP.ER.24H PO SCH (08:18)
[2020-08-28] MEDS: FUROSEMIDE 20 MG TAB PO SCH (08:18)
[2020-08-28] MEDS: MULTIVITAMINS, THERA 1 EACH TAB PO SCH (08:18)
[2020-08-28] MEDS: SPIRONOLACTONE 25 MG TAB PO SCH (08:18)
[2020-08-28] MEDS: CYCLOBENZAPRINE 10 MG TAB PO SCH ×3 (08:19→22:36)
[2020-08-28] MEDS: PANTOPRAZOLE 40 MG TABLET PO SCH (08:19)
[2020-08-28] MEDS: carvediloL 3.125 MG TAB PO SCH ×2 (08:19→16:40)
[2020-08-28] MEDS: traMADol 50 MG TAB PO PRN (08:25)
[2020-08-28] MEDS ORDERED: BENZOCAINE/MENTHOL LOZENG 1 EACH LOZENGE MUCOUS MEM PRN (09:21)
--- NOTE | 2020-08-28 10:58 | P.PN ---
Subjective Progress Note Date: 08/28/20 Principal diagnosis: Low back pain Patient was examined today at bedside, he is resting in his hospital bed. He was able to get up on 2 separate occasions yesterday and walk with his walker. He noted no significant discomfort in the back while walking. He notices most of the pain when attempting to get out of bed and when lying flat and sitting in bed. Patient notes most of the discomfort is in the low back region, today it is mainly over the left paraspinal region. He notes no discomfort over the midline of the lower thoracic or lumbar spine. He continues to have no notable bilateral lower extremity weakness or radicular symptoms. Denies any loss of bowel or bladder control. Currently denies any headaches, lightheadedness, chest pain, shortness of breath, nausea vomiting, fever or chills. Objective - Vital Signs Vital signs: Vital Signs Temp 97.9 F 08/28/20 08:05 Pulse 80 08/28/20 09:37 Resp 18 08/28/20 09:37 BP 120/85 08/28/20 08:05 Pulse Ox 93 L 08/28/20 08:05 Intake & Output 08/27/20 08/28/20 08/28/20 18:59 06:59 18:59 Intake Total 880 Output Total 400 400 Balance 480 -400 Intake: Oral 880 Output: Urine 400 400 Other: Voiding Method Urinal Urinal Urinal # Voids 4 1 1 - Exam Gen: AOx3, NAD VSS stable at this time Integument: No obvious skin changes noted throughout the cervical, thoracic or lumbar spine Palpation: Tenderness with palpation left sided paraspinal region of the lower lumbar. Nontender with palpation midline lumbar spine. He is nontender throughout the cervical or thoracic spine. ROM: Full range of motion in all major muscle groups in the bilateral upper and lower extremities Sensory Exam: Senory exam to light touch is intact C5-T1 Senosry exam to light touch is intact L2-S1 Motor: 5 out of 5 strength is appreciated with bilateral shoulder abduction, wrist extension, wrist flexion, elbow extension, intrinsics 5 out of 5 strength is appreciated with the bilateral lower extremities with hip flexion, knee extension, knee flexion, plantar flexion, dorsiflexion, EHL, FHL Reflexes: 2/4 in all UE and LE Negative Timothy's bilaterally negative clonus bilaterally negative Babinski bilaterally - Labs CBC & Chem 7: 08/27/20 05:40 08/27/20 05:40 Labs: Microbiology - Last 24 Hours (Table) 08/24/20 08:00 Blood Culture Gram Stain - Final Blood Blood Culture - Final Staph hominis sub sp. hominis 08/23/20 16:40 Blood Culture - Preliminary Blood No Growth after 96 hours 08/25/20 09:36 Blood Culture - Preliminary Blood No Growth after 48 hours Assessment and Plan Assessment: Low back pain with no radicular symptoms Abnormal findings computed tomography scan T10 vertebral body Other medical comorbidities Plan: Discussed with the patient today at bedside the possible treatment options for him at this time. We'll await pain management recommendations. I anticipate the need for a thoracic/lumbar spine MRI with and without contrast to further evaluate his current problem. Leg previously stated, we are unable to accommodate the MRI due to his pacemaker. Patient states that his professor of biological sciences mention that he would not be able to have an MRI due to the pacemaker. A consult has been placed with his cardiology group to further define this. As of 08/24/2020 and his most recent CT results, patient demonstrated no acute need for surgical intervention and this was reviewed with the patient with my attending a bedside. Patients labs continued to be non-suggestive of a acute discitis. IV antibiotics have been discontinued Infectious disease recommendations appreciated Continue PT/OT evaluation. Recommend use of walker all time with ambulation GI and DVT prophylaxis per primary medical service Discuss with internal medicine today current treatment plan. Pending pain management's recommendations along with cardiology's recommendations with his pacemaker, we would recommend transfer to tertiary care facility for MRI of the thoracic and lumbar spine with and without contrast. We will continue to follow patient during hospital stay Time with Patient: Less than 30
--- NOTE | 2020-08-28 14:32 | P.PAINCN ---
History of Present Illness - Reason for Consult Consult date: 08/28/20 - History of Present Illness This is a 80 years old male with a chronic history of severe low back pain, started June 2020, patient reported that intensity of the pain increased gradually he denies any initiating event and he reported the pain localized in the low back area, and is not agitated to the lower extremity it's intractable interfered with her quality of life is not able to ambulate secondary to the severity of the pain, patient was treated as an outpatient with pain medication which is felt to control his pain he was on Ultram 50 to mg 100 mg every 8 hours, and Flexeril 10 mg 3 times a day and he'll report the current medication is not helping to control his pain, patient had computed tomography scan of the Thoracolumbar spine and it showed questionable, area of discitis versus compression fracture of T10, patient had no motor or sensory deficit, his currently on Dilaudid IV 1 mg every 3 hours and this is the only medication helping to control his pain. 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 carbon monoxide poisoning 23 September 2019 diagnosis lung cancer Last Myocardial Infarction Date:: mar 2018 History of Any Multi-Drug Resistant Organisms: None Reported Past Surgical History: Heart Catheterization With Stent, Joint Replacement, Orthopedic Surgery, Pacemaker Additional Past Surgical History / Comment(s): BILAT TK replacement. BILAT KNEE SX. COLONOSCOPY. BILAT CATARACTS REMOVED. 2 heart stents 03/23 Past Anesthesia/Blood Transfusion Reactions: Motion Sickness Date of Last Stent Placement:: 03/23 Type of Cardiac Device: Permanent Pacemaker Device Placement Date:: 02/20 Past Psychological History: No Psychological Hx Reported Additional Psychological History / Comment(s): Pt resides with his spouse. He uses no assistive device. He drives. Smoking Status: Former smoker Past Alcohol Use History: None Reported Additional Past Alcohol Use History / Comment(s): Pt started smoking in 5 and quit in 1977 Past Drug Use History: None Reported - Past Family History Sister(s) Family Medical History: Cancer Brother(s) Family Medical History: Cancer Additional Family Medical History / Comment(s): 3 brothers cancer Father Family Medical History: Coronary Artery Disease (CAD), CVA/TIA, Myocardial Infarction (MN) Additional Family Medical History / Comment(s): Father had TIAs and MIs. He between the ages of 62-68yrs from what pt believes was a MN Mother Family Medical History: Myocardial Infarction (MN) Additional Family Medical History / Comment(s): Mother of a MN at the age of 88yrs. Medications and Allergies Home Medications Medication Instructions Recorded Confirmed Type Aspirin 81 mg PO Q48H 11/27/16 08/22/20 History Multivitamins, Thera [Multivitamin 1 tab PO DAILY 11/27/16 08/22/20 History (formulary)] Furosemide [Lasix] 20 mg PO DAILY 02/19/18 08/22/20 History Tamsulosin [Flomax] 0.4 mg PO DAILY 02/19/18 08/22/20 History Spironolactone 25 mg PO DAILY 09/08/19 08/22/20 History Apixaban [Eliquis] 5 mg PO BID 08/22/20 08/22/20 History Cyclobenzaprine [Flexeril] 10 mg PO BID PRN 08/22/20 08/22/20 History carvediloL [Coreg] 3.125 mg PO BID 08/22/20 08/22/20 History traMADol HCL 50 - 100 mg PO Q6H PRN 08/22/20 08/22/20 History Allergies Allergy/AdvReac Type Severity Reaction Status Date / Time hydrocodone [From Vicodin] Allergy Hallucinati Verified 08/22/20 13:28 ons Sjwanui-Rkx-Fmg Reductase AdvReac MUSCLE PAIN Verified 08/22/20 13:28 Inhibitor Physical Exam Vitals: Vital Signs Temp Pulse Resp BP BP Pulse Ox 08/28/20 09:37 80 18 08/28/20 08:05 97.9 F 85 18 120/85 93 L 08/28/20 04:43 97.5 F L 67 18 129/72 93 L 08/27/20 20:00 98.1 F 78 18 143/90 92 L Intake and Output 08/27/20 08/28/20 08/28/20 22:59 06:59 14:59 Output Total 400 Balance -400 Output: Urine 400 Other: Voiding Method Urinal Urinal # Voids 1 1 1 Physical Examinations : -Constitutiona : Cooperative , not in acute distress . -HEENT : nech : supple , no Lymphadenopathy , normal thyroid size . : eyes : no ptosis , no icterus, no photophobia . - neurologic : Cranial nerve II to XII intact , no focal neurological deffecit . -psychatric : alert , oriented X 3 , appropriate affect , intact judgment and insight . -Lymphatic : no Lymphadenopathy . - musculoskeltal : Lumber spine moter stegnth lower extremities ,thigh and legs 5/5 Right side , 5/5 Left side deep tendon reflexes : normal Knee Jerk , normal ankle Jerk lumber facet Loading Test =positive Right , posiutive Left Range of motion of the lumbar spine Flexion 30 degrees, extension 10 degrees strait leg raising test = negative bilaterally Fabere test= negative bilaterally Sever tenderness over the Right lumbar para vertebral muscles , Results CBC & Chem 7: 08/27/20 05:40 08/27/20 05:40 Labs: Microbiology - Last 24 Hours (Table) 08/25/20 09:36 Blood Culture - Preliminary Blood No Growth after 72 hours 08/24/20 08:00 Blood Culture Gram Stain - Final Blood Blood Culture - Final Staph hominis sub sp. hominis 08/23/20 16:40 Blood Culture - Preliminary Blood No Growth after 96 hours Comments: Computed tomography scan of the thoracolumbar spine lumbar degenerative disc disease lumbar spondylosis and possible discitis versus compression fractures of T10 Assessment and Plan Plan: Assessment and plan=1-low back pain secondary to lumbar degenerative rest disc disease, Rule out compression fracture of T10 Rule out discitis of T10. Myofascial pain syndrome upper lumbar area on the right side. Recommend discontinue Ultram, patient reported that he has no benefit from it as an outpatient and also as an inpatient he had no benefit from it, recommend to start patient on Percocet 7.5/325 every 6 hours when necessary Continue Flexeril 10 mg 3 times a day, started patient on Lidoderm patch to be placed in the upper lumbar area right side he is not candidate for invasive interventional pain management. Patient had to have a biopsy of the area where was suspected discitis, and compression fracture, and his speech can be done by a spine surgeon or interventional radiology Time with Patient: Greater than 30 PQRS Measure Charge Sheet PQRS Narrative: Smoking Status Former smoker Blood Pressure [Left Arm] 129/72 Blood Pressure [Right Arm] 120/85 Blood Pressure 154/114 Pain Intensity [Back] 0 Pain Intensity [None] 2 Pain Intensity 0 Pain Scale Used Non Verbal Pain Indicator Scale Used Non Verbal Pain Indicator Home Medications: Ambulatory Orders Aspirin 81 mg PO Q48H 11/27/16 Multivitamins, Thera [Multivitamin (formulary)] 1 tab PO DAILY 11/27/16 Furosemide [Lasix] 20 mg PO DAILY 02/19/18 Tamsulosin [Flomax] 0.4 mg PO DAILY 02/19/18 Spironolactone 25 mg PO DAILY 09/08/19 Apixaban [Eliquis] 5 mg PO BID 08/22/20 Cyclobenzaprine [Flexeril] 10 mg PO BID PRN 08/22/20 carvediloL [Coreg] 3.125 mg PO BID 08/22/20 traMADol HCL 50 - 100 mg PO Q6H PRN 08/22/20
--- NOTE | 2020-08-28 15:40 | P.PN ---
Subjective Progress Note Date: 08/28/20 Intractable low back pain without radiculopathy Abnormal CT/questionable discitis/osteomyelitis versus possible fracture 80-year-old male patient admitted to the hospital with intractable back pain; CT of the lumbar spine revealed changes within T10 vertebral body with question of pathological fracture versus infection; orthopedic surgery and ID on board 08/26/2020 Patient is seen and evaluated in room with at bedside; reports ambulation with therapy which caused worsening of pain; patient reports improvement in pain by increasing frequency of Dilaudid Vital signs remained stable except for elevated blood pressure of 168/87 CT has been reviewed by radiology, orthopedic surgery and ID; patient is scheduled for guided aspiration of T10; patient is currently on L Valle which has been put on hold with plans for CT-guided aspiration on Thursday08/27/2020 Patient is seen in follow-up and continues to have extreme back pain. Patient was scheduled to undergo aspiration of the T10 vertebral area with the possibility of infection. Infectious disease and orthopedic surgery are following. Per Dr. Baum radiology there is minimal area of concern at the T10 that would cause for aspirating and not willing to perform. Anti- coagulation is currently on hold and will continue to do so. Pain management consulted and pending at this time. 08/28/2020 Patient is seen and examined in follow-up continues to have severe back pain 9 out of 10 on the pain scale. Patient is currently receiving Dilaudid and continues to request pain medication. Patient also reports to feeling constipated and has not had a bowel movement. Patient is passing gas. Patient is on lactulose as needed along with stool softeners. Orthopedic surgery following an recommending conservative management at this time. Patient does have a [employer] pacemaker and leads are not compatible with MRI and this was discussed with cardiology. Questionable area of discitis or T10 fracture on CT. Infectious disease also following and patient is currently maintained off of antibiotics. Patient has been afebrile and white blood count trending down and within normal limits. Patient continues to work with physical therapy. Pain management consulted and pending at this time. Review of systems: Constitutional: No reports of fatigue, fever, or chills Cardiovascular: No reports of chest pain or palpitations Respiratory: No reports of shortness of breath or cough GI: No reports of nausea, vomiting, or diarrhea : No reports of dysuria or retention Neurovascular: reports weakness no reports of numbness, reports continued back pain All medications have been reviewed Objective - Vital Signs Vital signs: Vital Signs Temp 97.9 F 08/28/20 08:05 Pulse 80 08/28/20 09:37 Resp 18 08/28/20 09:37 BP 120/85 08/28/20 08:05 Pulse Ox 93 L 08/28/20 08:05 Intake & Output 08/27/20 08/28/20 08/28/20 18:59 06:59 18:59 Intake Total 880 Output Total 400 400 Balance 480 -400 Intake: Oral 880 Output: Urine 400 400 Other: Voiding Method Urinal Urinal Urinal # Voids 4 1 1 - Exam Gen: This is a 80-year-old male laying in bed awake, alert and oriented 3, well-developed, well-nourished, obese. at the bedside HEENT: Head is atraumatic, normocephalic. Pupils equal, round. Sclerae is anicteric. NECK: Supple. No JVD. No lymphadenopathy. No thyromegaly. LUNGS: Breath sounds diminished eye laterally with no wheezing or rhonchi noted. No intercostal retractions. HEART: Regular rate and rhythm. No murmur. ABDOMEN: Soft. Bowel sounds are present. No masses. No tenderness. EXTREMITIES: No pedal edema. No calf tenderness. NEUROLOGICAL: Patient is awake, alert and oriented x3. Cranial nerves 2 through 12 are grossly intact. - Labs CBC & Chem 7: 08/27/20 05:40 08/27/20 05:40 Labs: Microbiology - Last 24 Hours (Table) 08/24/20 08:00 Blood Culture Gram Stain - Final Blood Blood Culture - Final Staph hominis sub sp. hominis 08/23/20 16:40 Blood Culture - Preliminary Blood No Growth after 96 hours 08/25/20 09:36 Blood Culture - Preliminary Blood No Growth after 48 hours Assessment and Plan Assessment: -Intractable lower back pain without radiculopathy orthopedic surgery following along with PT/OT therapy and pain management consulted and is pending at this time. -Abnormal CT/questionable discitis/osteomyelitis versus possible prior fracture: Infectious disease is following. Recommending CT-guided aspiration of the T10 area although radiology unable to perform. Will continue to hold anticoagulation at this time. Patient is afebrile and most recent white blood count is within normal limits. -Coronary artery disease -Congestive heart failure history -Permanent pacemaker, [employer] pacemaker per Dr. Summers and leads are not compatible with MRI -Hypertension -BPH -DVT prophylaxis: SCDs only early ambulation -Full code Plan: Discussed with orthopedic surgery and will consult pain management as radiology unable to perform T10 aspiration at this time. Will also discuss with infectious disease about further treatments and IV antibiotics. PT/OT following. Discussed with cardiology and patient is not a candidate for MRI due to [employer] pacemaker. Anticoagulation continues to be on hold in the event of possible epidural injection. Awaiting pain management consult.
--- NOTE | 2020-08-28 15:54 | PN ---
PROGRESS NOTE DATE OF SERVICE: 08/28/2020 REASON FOR FOLLOWUP: Abnormal CT at the T10 level. INTERVAL HISTORY: The patient is currently afebrile. The patient is still complaining of pain to the mid back area, though mentioned it is controlled only with the Dilaudid he is getting every 4 hours. Denies any radiation of the pain down the leg. Denies any chest pain, shortness of breath or cough. Slightly frustrated with the care. PHYSICAL EXAMINATION: Blood pressure 120/85 with a pulse of 85, temperature of 97.9. He is 93% on room air. General description is an elderly male up in the chair in no distress. RESPIRATORY SYSTEM: Unlabored breathing with decreased breath sounds at the base. No wheeze. HEART: S1, S2. Regular rate and rhythm. ABDOMEN: Soft. No tenderness. LABS: No new labs have been obtained today. Blood cultures from 08/25 so far negative. DIAGNOSTIC IMPRESSION AND PLAN: Patient with an abnormal CT in this patient admitted to the hospital with back pain with a question of fracture versus infection. Clinically not behaving as discitis. The patient is currently monitored closely off antibiotic therapy. One blood culture that was positive was more likely contamination. Patient's at the bedside. Questions and concerns were answered. MMODL / IJN: [id number] /
[2020-08-28] MEDS: SENNOSIDES 8.6 MG TAB PO PRN (22:41)
[2020-08-29] MEDS: HYDROmorphone 1 MG/ML 1 ML SYRINGE IVP PRN ×3 (03:11→16:03)
[2020-08-29] MEDS: oxyCODONE-APAP 7.5-325MG 1 EACH TAB PO PRN ×2 (04:09→19:54)
[2020-08-29] MEDS: TAMSULOSIN 0.4 MG CAP.ER.24H PO SCH (07:48)
[2020-08-29] MEDS: carvediloL 3.125 MG TAB PO SCH ×2 (07:48→17:20)
[2020-08-29] MEDS: CYCLOBENZAPRINE 10 MG TAB PO SCH ×3 (07:48→21:58)
[2020-08-29] MEDS: FUROSEMIDE 20 MG TAB PO SCH (07:48)
[2020-08-29] MEDS: PANTOPRAZOLE 40 MG TABLET PO SCH (07:48)
[2020-08-29] MEDS: MULTIVITAMINS, THERA 1 EACH TAB PO SCH (07:48)
[2020-08-29] MEDS: SPIRONOLACTONE 25 MG TAB PO SCH (07:48)
[2020-08-29] MEDS: LIDOCAINE 5% PATCH TOPICAL SCH (07:51)
[2020-08-29 09:07] LABS: INR 1.05 (0.90-1.11); Prothrombin Time 11.4 sec (9.9-11.9)
[2020-08-29 09:17] LABS: Basophils # (A) 0.02 X 10*3/uL (0.00-0.10); Basophils % (A) 0.2 %; Eosinophils # (A) 0.57 X 10*3/uL (0.04-0.35); Eosinophils % (A) 6.2 %; HCT 45.1 % (39.6-50.0); HGB 14.7 g/dL (13.0-17.0); Lymphocytes # (A) 0.97 X 10*3/uL (0.90-5.00); Lymphocytes % (A) 10.5 %; MCH 29.9 pg (27.0-32.0); MCHC 32.6 g/dL (32.0-37.0); MCV 91.9 fL (80.0-97.0); Mean Platelet Volume 10.2 fL (9.5-12.2); Monocytes % (A) 11.9 %; Neutrophils # (A) 6.53 X 10*3/uL (1.80-7.70); Neutrophils % (A) 70.7 %; Platelet Count 202 X 10*3/uL (140-440); RBC 4.91 X 10*6/uL (4.40-5.60); RDW 14.6 % (11.5-14.5); WBC 9.24 X 10*3/uL (4.50-10.00)
[2020-08-29 09:44] LABS: African American GFR (CKD) 83.2 (60.0-200.0); Anion Gap 8.4 mmol/L (4.00-12.00); Calcium 9.4 mg/dL (8.7-10.3); Carbon Dioxide 32.6 mmol/L (21.6-31.8); Non-African American GFR(CKD) 71.8 (60.0-200.0); Potassium 5.2 mmol/L (3.5-5.5)
--- NOTE | 2020-08-29 10:36 | P.PN ---
Subjective Progress Note Date: 08/29/20 Principal diagnosis: Low back pain Patient was examined today at bedside, he is resting in his hospital bed. Patient was evaluated by pain management yesterday, they did alter his oral medications by adding a oral narcotic and the Lidoderm patch. No interventional treatment is being recommended at that time. Cardiology again recommended no MRI of the area due to his pacemaker and that this would be unattainable at any other facility due to the tight model a pacemaker. While lying in bed, patient's pain is significantly improved over the last few days. He has not had up and moving at this time. We discussed the use of the IV narcotics and the need for the patient to decrease his use of these while in the hospital. Patient notes most of the discomfort is in the low back region, today it is mainly over the left paraspinal region. He notes no discomfort over the midline of the lower thoracic or lumbar spine. He continues to have no notable bilateral lower extremity weakness or radicular symptoms. Denies any loss of bowel or bladder control. Currently denies any headaches, lightheadedness, chest pain, shortness of breath, nausea vomiting, fever or chills. Objective - Vital Signs Vital signs: Vital Signs Temp 97.6 F 08/29/20 07:20 Pulse 71 08/29/20 08:00 Resp 18 08/29/20 08:00 BP 134/85 08/29/20 07:20 Pulse Ox 94 L 08/29/20 07:20 Intake & Output 08/28/20 08/29/20 08/29/20 18:59 06:59 18:59 Intake Total 500 Output Total 400 1025 Balance -400 -525 Weight 134.3 kg Intake: Oral 500 Output: Urine 400 1025 Other: Voiding Method Urinal Urinal Urinal # Voids 1 1 - Exam Gen: AOx3, NAD VSS stable at this time Integument: No obvious skin changes noted throughout the cervical, thoracic or lumbar spine Palpation: Tenderness with palpation left sided paraspinal region of the lower lumbar. Nontender with palpation midline lumbar spine. He is nontender throughout the cervical or thoracic spine. ROM: Full range of motion in all major muscle groups in the bilateral upper and lower extremities Sensory Exam: Senory exam to light touch is intact C5-T1 Senosry exam to light touch is intact L2-S1 Motor: 5 out of 5 strength is appreciated with bilateral shoulder abduction, wrist extension, wrist flexion, elbow extension, intrinsics 5 out of 5 strength is appreciated with the bilateral lower extremities with hip flexion, knee extension, knee flexion, plantar flexion, dorsiflexion, EHL, FHL Reflexes: 2/4 in all UE and LE Negative Timothy's bilaterally negative clonus bilaterally negative Babinski bilaterally - Labs CBC & Chem 7: 08/29/20 04:38 08/29/20 04:38 Labs: Abnormal Lab Results - Last 24 Hours (Table) 08/29/20 08/29/20 Range/Units 04:38 04:38 RDW 14.6 H (11.5-14.5) % Immature Gran # 0.05 H (0.00-0.04) X 10*3/uL Monocytes # 1.10 H (0.20-1.00) X 10*3/uL Eosinophils # 0.57 H (0.04-0.35) X 10*3/uL Carbon Dioxide 32.6 H (21.6-31.8) mmol/L BUN/Creatinine Ratio 21.00 H (12.00-20.00) Ratio Glucose 125 H (70-110) mg/dL Microbiology - Last 24 Hours (Table) 08/23/20 16:40 Blood Culture - Preliminary Blood No Growth after 120 hours 08/25/20 09:36 Blood Culture - Preliminary Blood No Growth after 72 hours 08/24/20 08:00 Blood Culture Gram Stain - Final Blood Blood Culture - Final Staph hominis sub sp. hominis Assessment and Plan Assessment: Low back pain with no radicular symptoms Abnormal findings computed tomography scan T10 vertebral body Other medical comorbidities Plan: Discussed at length today with the patient and his possible treatment options. Due to the fact that he cannot have an MRI of thoracic or lumbar spine and the need for a biopsy of the T10 vertebral body , I have placed a consult for Dr. Peters with [facility] to evaluate the patient for possible treatment. Depending on Dr. Peters recommendations and patient's willingness for treatment, he may need to be transferred to [facility] for further workup by orthopedic spine and interventional radiology. Infectious disease recommendations appreciated Continue PT/OT evaluation. Recommend use of walker all time with ambulation GI and DVT prophylaxis per primary medical service We will continue to follow patient during hospital stay Time with Patient: Less than 30
--- NOTE | 2020-08-29 11:13 | P.CNOR ---
History of Present Illness - HPI Consult date: 08/29/20 Consult reason: low back pain History of present illness: Patient is seen and examined today at bedside. He is a pleasant 80-year-old male has been having continuous back pain over the past several weeks. He does not have any specific injury or trauma. He says the pain is primarily in his low back and started the left side of his lower back and is now radiated over to the right side. He denies any problems in his legs. He denies any numbness tingling or weakness in his lower extremities. He denies any changes in bowel bladder function. He says he does not have any specific injury but at times when he tries to get up and move around it is so intense that he is unable to mobilize. He says he lays back down in pain typically goes away after a few minutes when he lays down. He says that at times is able to walk for a little while but most the time it gives him significant pain when he tries to get up and around. He does have history of lung cancer. He denies any fevers chills. Denies any pain when he coughs or sneezes. Review of Systems As stated per HPI. Denies any fevers chills night sweats. Denies any abdominal pain. Denies chest pain or shortness of breath. Denies any numbness tingling in his lower extremities. Denies any weakness in his lower extremities he denies any changes in bowel bladder function. Denies any specific trauma. Admits to history of lung cancer. 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 carbon monoxide poisoning 23 September 2019 diagnosis lung cancer Last Myocardial Infarction Date:: mar 2018 History of Any Multi-Drug Resistant Organisms: None Reported Past Surgical History: Heart Catheterization With Stent, Joint Replacement, Orthopedic Surgery, Pacemaker Additional Past Surgical History / Comment(s): BILAT TK replacement. BILAT KNEE SX. COLONOSCOPY. BILAT CATARACTS REMOVED. 2 heart stents 03/23 Past Anesthesia/Blood Transfusion Reactions: Motion Sickness Date of Last Stent Placement:: 03/23 Type of Cardiac Device: Permanent Pacemaker Device Placement Date:: 02/20 Past Psychological History: No Psychological Hx Reported Additional Psychological History / Comment(s): Pt resides with his spouse. He uses no assistive device. He drives. Smoking Status: Former smoker Past Alcohol Use History: None Reported Additional Past Alcohol Use History / Comment(s): Pt started smoking in 1952 and quit in 1977 Past Drug Use History: None Reported - Past Family History Sister(s) Family Medical History: Cancer Brother(s) Family Medical History: Cancer Additional Family Medical History / Comment(s): 3 brothers cancer Father Family Medical History: Coronary Artery Disease (CAD), CVA/TIA, Myocardial Infarction (ND) Additional Family Medical History / Comment(s): Father had TIAs and MIs. He between the ages of 62-68yrs from what pt believes was a ND Mother Family Medical History: Myocardial Infarction (ND) Additional Family Medical History / Comment(s): Mother of a ND at the age of 88yrs. Medications and Allergies Home Medications Medication Instructions Recorded Confirmed Type Aspirin 81 mg PO Q48H 11/27/16 08/22/20 History Multivitamins, Thera [Multivitamin 1 tab PO DAILY 11/27/16 08/22/20 History (formulary)] Furosemide [Lasix] 20 mg PO DAILY 02/19/18 08/22/20 History Tamsulosin [Flomax] 0.4 mg PO DAILY 02/19/18 08/22/20 History Spironolactone 25 mg PO DAILY 09/08/19 08/22/20 History Apixaban [Eliquis] 5 mg PO BID 08/22/20 08/22/20 History Cyclobenzaprine [Flexeril] 10 mg PO BID PRN 08/22/20 08/22/20 History carvediloL [Coreg] 3.125 mg PO BID 08/22/20 08/22/20 History traMADol HCL 50 - 100 mg PO Q6H PRN 08/22/20 08/22/20 History Allergies Allergy/AdvReac Type Severity Reaction Status Date / Time hydrocodone [From Vicodin] Allergy Hallucinati Verified 08/22/20 13:28 ons Seurmyd-Ats-Ftr Reductase AdvReac MUSCLE PAIN Verified 08/22/20 13:28 Inhibitor Physical Examination Osteopathic Statement: *. No significant issues noted on an osteopathic structu ral exam other than those noted in the History and Physical/Consult. - L Spine: dermatomal strength & reflexes bilateral Strength: hip flexion: 5/5 (At his lower back is nontender to palpation over the midline. He is nontender to palpation his lower thoracic specifically nontender to palpation over T10. His lower extremity is have 5 out of 5 muscle strength throughout with dorsiflexion plantarflexion and EHL, hip flexion and knee extension.) Strength: hip extension: 5/5 (His thighs and calves are soft nontender. He has no hyperreflexia. No evidence of DVT.) Results - Labs Labs: Abnormal Lab Results - Last 24 Hours (Table) 08/29/20 08/29/20 Range/Units 04:38 04:38 RDW 14.6 H (11.5-14.5) % Immature Gran # 0.05 H (0.00-0.04) X 10*3/uL Monocytes # 1.10 H (0.20-1.00) X 10*3/uL Eosinophils # 0.57 H (0.04-0.35) X 10*3/uL Carbon Dioxide 32.6 H (21.6-31.8) mmol/L BUN/Creatinine Ratio 21.00 H (12.00-20.00) Ratio Glucose 125 H (70-110) mg/dL Microbiology - Last 24 Hours (Table) 08/23/20 16:40 Blood Culture - Preliminary Blood No Growth after 120 hours 08/25/20 09:36 Blood Culture - Preliminary Blood No Growth after 72 hours 08/24/20 08:00 Blood Culture Gram Stain - Final Blood Blood Culture - Final Staph hominis sub sp. hominis H & H 08/22/20 08/23/20 08/24/20 Range/Units 12:32 05:59 08:00 Hgb 16.5 15.8 15.3 (13.0-17.5) gm/dL Hct 49.4 48.1 47.0 (39.0-53.0) % 02/20/21 02/21/21 02/22/21 Range/Units 06:02 06:01 05:40 Hgb 14.6 14.6 14.5 (13.0-17.5) gm/dL Hct 44.1 45.0 44.3 (39.0-53.0) % 08/29/20 Range/Units 04:38 Hgb 14.7 (13.0-17.5) gm/dL Hct 45.1 (39.0-53.0) % Coagulation 08/22/20 08/27/20 08/29/20 Range/Units 12:32 08:50 04:38 INR 1.1 1.1 1.05 (<1.2) Result Diagrams: 08/29/20 04:38 08/29/20 04:38 - Diagnostic results CT Scan - lumbar: report reviewed, image reviewed (CT scans of his thoracic and lumbar spine are reviewed from 08/23/20. There is some evidence of bony changes within the vertebral body of T10. 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 There is no significant vertebral height loss. ) CT scan - lumbar myelogram: report reviewed (There is no evidence of bony retropulsion. There is no obvious instability. There is no obvious fracture line. There are some vague disc changes at T9 10), image reviewed Assessment and Plan Assessment: Chronic low back pain Bony changes at T10 vertebral body No evidence of neurologic compromise History of lung cancer Plan: Chronic low back pain Bony changes at T10 vertebral body No evidence of neurologic compromise History of lung cancer I appreciate the medical management and the orthopedic management. I think he has had appropriate treatment for his symptoms and given his findings thus far. Patient has had continued low back pain despite conservative care. He still has significant pain when he tries to mobilize and his lower back. At times it is incapacitating for him. It is difficult to specifically determine the source of the patient's symptoms. His pain is primarily at his lower back but primary changes that we see on his imaging points to the T10 vertebral body. There are some changes within the ve rtebral body itself and this could be contributing to his symptoms. With his history of lung cancer and no specific trauma I think it would be worthwhile to obtain a bone scan to determine if there is significant acute bony activity within the vertebral body of T10. He is unable to get a MRI due to his pacemaker. If there is significant activity within the vertebral body at T10 then I would go ahead and pursue a vertebral body biopsy. During the biopsy with surgical access I think it would be reasonable to proceed with a vertebral kyphoplasty using antibiotic cement as an infectious process has been within the differential. I discussed this with him today. I will go ahead and order the bone scan and make him nothing by mouth after midnight for possible biopsy and kyphoplasty with antibiotic cement. We will follow him closely.
[2020-08-29 14:02] VITALS: BMI 41.3
--- NOTE | 2020-08-29 14:37 | P.PN ---
Subjective Progress Note Date: 08/29/20 Intractable low back pain without radiculopathy Abnormal CT/questionable discitis/osteomyelitis versus possible fracture 80-year-old male patient admitted to the hospital with intractable back pain; CT of the lumbar spine revealed changes within T10 vertebral body with question of pathological fracture versus infection; orthopedic surgery and ID on board 08/26/2020 Patient is seen and evaluated in room with at bedside; reports ambulation with therapy which caused worsening of pain; patient reports improvement in pain by increasing frequency of Dilaudid Vital signs remained stable except for elevated blood pressure of 168/87 CT has been reviewed by radiology, orthopedic surgery and ID; patient is scheduled for guided aspiration of T10; patient is currently on L Valle which has been put on hold with plans for CT-guided aspiration on Thursday08/27/2020 Patient is seen in follow-up and continues to have extreme back pain. Patient was scheduled to undergo aspiration of the T10 vertebral area with the possibility of infection. Infectious disease and orthopedic surgery are following. Per Dr. Baum radiology there is minimal area of concern at the T10 that would cause for aspirating and not willing to perform. Anti- coagulation is currently on hold and will continue to do so. Pain management consulted and pending at this time. 08/28/2020 Patient is seen and examined in follow-up continues to have severe back pain 9 out of 10 on the pain scale. Patient is currently receiving Dilaudid and continues to request pain medication. Patient also reports to feeling constipated and has not had a bowel movement. Patient is passing gas. Patient is on lactulose as needed along with stool softeners. Orthopedic surgery following an recommending conservative management at this time. Patient does have a [employer] pacemaker and leads are not compatible with MRI and this was discussed with cardiology. Questionable area of discitis or T10 fracture on CT. Infectious disease also following and patient is currently maintained off of antibiotics. Patient has been afebrile and white blood count trending down and within normal limits. Patient continues to work with physical therapy. Pain management consulted and pending at this time. 08/29/2020 Patient is seen this morning with no acute overnight issues. Patient continues to be in pain of the lower back noted on the left that is radiating to the right and continues to have difficulty with pain management. Medication adjustments have been made and patient was started on a lidocaine patch along with Percocet and Ultram was discontinued. Orthopedic surgery following and will consult Dr. Peters for the possibility and discussion of kyphoplasty if warranted. A bone scan has been ordered and currently pending. Patient is unable to have an MRI due to [employer] pacemaker. Patient is agreeable to the bone scan but the possibility of a biopsy once results are reviewed. Anticoagulant remains on hold. Patient is afebrile. White blood count is 9.24. Patient denies any chest pain, shortness of breath, or palpitations. Patient denies any bowel movements although is passing gas. Review of systems: Constitutional: No reports of fatigue, fever, or chills Cardiovascular: No reports of chest pain or palpitations Respiratory: No reports of shortness of breath or cough GI: No reports of nausea, vomiting, or diarrhea : No reports of dysuria or retention Neurovascular: reports weakness no reports of numbness, reports continued back pain All medications have been reviewed Objective - Vital Signs Vital signs: Vital Signs Temp 97.6 F 08/29/20 07:20 Pulse 71 08/29/20 08:00 Resp 18 08/29/20 08:00 BP 134/85 08/29/20 07:20 Pulse Ox 94 L 08/29/20 07:20 Intake & Output 08/28/20 08/29/20 08/29/20 18:59 06:59 18:59 Intake Total 500 Output Total 400 1025 Balance -400 -525 Weight 134.3 kg Intake: Oral 500 Output: Urine 400 1025 Other: Voiding Method Urinal Urinal Urinal # Voids 1 1 - Exam Gen: This is a 80-year-old male laying in bed awake, alert and oriented 3, well-developed, well-nourished, obese. HEENT: Head is atraumatic, normocephalic. Pupils equal, round. Sclerae is anict diane. NECK: Supple. No JVD. No lymphadenopathy. No thyromegaly. LUNGS: Breath sounds diminished bilaterally with no wheezing or rhonchi noted. No intercostal retractions. HEART: Regular rate and rhythm. No murmur. ABDOMEN: Soft. Bowel sounds are present. No masses. No tenderness. EXTREMITIES: No pedal edema. No calf tenderness. NEUROLOGICAL: Patient is awake, alert and oriented x3. Cranial nerves 2 through 12 are grossly intact. - Labs CBC & Chem 7: 08/29/20 04:38 08/29/20 04:38 Labs: Abnormal Lab Results - Last 24 Hours (Table) 08/29/20 08/29/20 Range/Units 04:38 04:38 RDW 14.6 H (11.5-14.5) % Immature Gran # 0.05 H (0.00-0.04) X 10*3/uL Monocytes # 1.10 H (0.20-1.00) X 10*3/uL Eosinophils # 0.57 H (0.04-0.35) X 10*3/uL Carbon Dioxide 32.6 H (21.6-31.8) mmol/L BUN/Creatinine Ratio 21.00 H (12.00-20.00) Ratio Glucose 125 H (70-110) mg/dL Microbiology - Last 24 Hours (Table) 08/25/20 09:36 Blood Culture - Preliminary Blood No Growth after 96 hours 08/23/20 16:40 Blood Culture - Preliminary Blood No Growth after 120 hours 08/24/20 08:00 Blood Culture Gram Stain - Final Blood Blood Culture - Final Staph hominis sub sp. hominis Assessment and Plan Assessment: -Intractable lower back pain without radiculopathy orthopedic surgery following along with pain management in infectious disease. Dr. Peters consulted for possible kyphoplasty with biopsy of this questionable T10 area. Bone scan was ordered and pending. Await report. -Abnormal CT/questionable discitis/osteomyelitis versus possible prior fracture: Infectious disease is following. Recommending CT-guided aspiration of the T10 area although radiology unable to perform. Will continue to hold a nticoagulation at this time. Patient is afebrile and most recent white blood count is within normal limits. -Coronary artery disease -Congestive heart failure history -Permanent pacemaker, [employer]iel pacemaker per Dr. Summers and leads are not compatible with MRI -Hypertension -BPH -DVT prophylaxis: SCDs only early ambulation -Full code Plan: Multiple medical consultations following. Dr. Peters consulted for the possibility of kyphoplasty with biopsy. Bone scan ordered and pending at this time. Discussed with cardiology and patient is not a candidate for MRI due to [employer] pacemaker. Anticoagulation continues to be on hold in the event of possible procedure. Ultram discontinued and patient started on Percocets and discussed with nursing staff along with patient about minimizing IV narcotic use. Patient reports no bowel movement as of yet and denies any feelings of constipation. Will continue bowel regimen.
--- NOTE | 2020-08-29 16:17 | NM ---
EXAMINATION TYPE: NM bone scan whole body DATE OF EXAM: 08/29/2020 COMPARISON: Correlation PET/CT 06/15/[address] 08/23/2020. HISTORY: 80-year-old male history of lung cancer and lumbar pain for 7 weeks. TECHNIQUE: Delayed whole-body scanning was performed following the injection of 23.0 mCi Tc 99m MDP. Anterior and posterior images acquired 3 hours post injection. FINDINGS: There is abnormal increased uptake involving the posterior elements at T10-T12 levels. Some degenerat grace tracer activity noted at the shoulders and sternoclavicular joints. There may be underlying knee replacements on both sides. IMPRESSION: Focal abnormal uptake T10-T12 levels. Underlying occult metastatic disease not excluded. Additional s uperimposed pathologic fracture at T10 suspected given the recent CT findings on 08/23/2020. Consider correlation for negative inflammatory markers (such as CRP and ESR) to exclude the possibility of inf ection as was suggested on 08/23/2020.
[2020-08-29] MEDS: LACTULOSE 20 GM/30 ML CUP PO PRN (19:54)
--- NOTE | 2020-08-29 23:19 | PN ---
PROGRESS NOTE DATE OF SERVICE: 08/29/2020. REASON FOR FOLLOWUP: Abnormal CT and a question of infection versus fracture. INTERVAL HISTORY: The patient is currently afebrile. The patient still complaining of pain to the mid back area. The patient denies having any chest pain, shortness of breath or cough. No nausea, no vomiting. No abdominal pain or any diarrhea. PHYSICAL EXAMINATION: Blood pressure 146/93 with a pulse of 74, temperature 97.6. General description is an elderly male lying in bed in no distress. RESPIRATORY SYSTEM: Unlabored breathing with decreased breath sounds in the bases. No wheeze. HEART: S1, S2. Regular rate and rhythm. Abdomen soft, no tenderness. LABS: Hemoglobin is 14.7, white count 9.2, BUN of 21, creatinine 1.0. Blood culture repeat has been negative so far. DIAGNOSTIC IMPRESSION AND PLAN: 1. Patient with positive blood cultures x1 more likely skin contamination. Repeat blood culture negative. 2. Patient with abnormal CT in this patient who presented to hospital with intractable back pain that has been going on for almost 3 months now with concern for possible pathologic fracture versus infection. Clinically not behaving as infection. No fever, no white count, CRP still not significantly elevated. The patient may benefit from CT-guided aspirate of this area, perform biopsy as well as culture. at the bedside. Questions and concerns were answered. We will continue to hold on any systemic antibiotic therapy at this point. MMODL / IJN: [id number] /
[2020-08-30] MEDS: oxyCODONE-APAP 7.5-325MG 1 EACH TAB PO PRN (04:41)
[2020-08-30] MEDS: HYDROmorphone 1 MG/ML 1 ML SYRINGE IVP PRN (05:29)
[2020-08-30] MEDS: PANTOPRAZOLE 40 MG TABLET PO SCH (08:22)
[2020-08-30] MEDS: FUROSEMIDE 20 MG TAB PO SCH (08:22)
[2020-08-30] MEDS: CYCLOBENZAPRINE 10 MG TAB PO SCH ×3 (08:22→22:35)
[2020-08-30] MEDS: carvediloL 3.125 MG TAB PO SCH ×2 (08:22→18:03)
[2020-08-30] MEDS: SPIRONOLACTONE 25 MG TAB PO SCH (08:22)
[2020-08-30] MEDS: MULTIVITAMINS, THERA 1 EACH TAB PO SCH (08:22)
[2020-08-30] MEDS: TAMSULOSIN 0.4 MG CAP.ER.24H PO SCH (08:22)
--- NOTE | 2020-08-30 10:32 | P.PN ---
Progress Note - Text Progress Note Date: 08/30/20 Patient is scheduled for kyphoplasty with biopsy of the T10 vertebral body today with Dr. Peters from [facility]. We will continue to follow patient and discuss with Dr. Peters operative findings and further treatment recommendations.
[2020-08-30] MEDS: LIDOCAINE 5% PATCH TOPICAL SCH (10:58)
[2020-08-30] MEDS ORDERED: LACTATED RINGERS 1,000 ML IV ONE (12:21)
[2020-08-30] MEDS ORDERED: ONDANSETRON 4 MG/2 ML VIAL ONE (12:39)
[2020-08-30] MEDS ORDERED: ONDANSETRON 4 MG/2 ML VIAL IVP ONE (12:43)
[2020-08-30] MEDS ORDERED: DEXAMETHASONE SOD PHOSPHATE 4 MG/ML 1 ML VIAL IV ONE (12:43)
[2020-08-30] MEDS ORDERED: VANCOMYCIN 1,000 MG VIAL MISCELLANE ONE (13:04)
[2020-08-30] MEDS ORDERED: LIDOCAINE 1% INJ 10MG/ML (20 ML MDV) ONE (13:05)
[2020-08-30] MEDS ORDERED: IOPAMIDOL M200 10 ML VIAL INTRATHECA ONE (13:05)
[2020-08-30] MEDS ORDERED: SUCCINYLCHOLINE CHLORIDE VIAL 200 MG/10 ML VIAL IV ONE (13:05)
[2020-08-30] MEDS ORDERED: MIDAZOLAM 2 MG/2 ML VIAL ONE (13:05)
[2020-08-30] MEDS ORDERED: PROPOFOL 10 MG/ML 20 ML VIAL IV ONE (13:05)
[2020-08-30] MEDS ORDERED: LIDOCAINE 0.5%-EPI 1:200,000 50 ML VIAL SQ ONE (13:06)
--- NOTE | 2020-08-30 14:48 | XR ---
Fluoroscopy History: Kyphoplasty Kyphoplasty with Dr. Peters. 1 min 40 sec fluoro time. 4 images scanned.
--- NOTE | 2020-08-30 15:00 | P.PN ---
Subjective Progress Note Date: 08/30/20 Intractable low back pain without radiculopathy Abnormal CT/questionable discitis/osteomyelitis versus possible fracture 80-year-old male patient admitted to the hospital with intractable back pain; CT of the lumbar spine revealed changes within T10 vertebral body with question of pathological fracture versus infection; orthopedic surgery and ID on board 08/26/2020 Patient is seen and evaluated in room with at bedside; reports ambulation with therapy which caused worsening of pain; patient reports improvement in pain by increasing frequency of Dilaudid Vital signs remained stable except for elevated blood pressure of 168/87 CT has been reviewed by radiology, orthopedic surgery and ID; patient is scheduled for guided aspiration of T10; patient is currently on L Valle which has been put on hold with plans for CT-guided aspiration on Thursday08/27/2020 Patient is seen in follow-up and continues to have extreme back pain. Patient was scheduled to undergo aspiration of the T10 vertebral area with the possibility of infection. Infectious disease and orthopedic surgery are following. Per Dr. Baum radiology there is minimal area of concern at the T10 that would cause for aspirating and not willing to perform. Anti- coagulation is currently on hold and will continue to do so. Pain management consulted and pending at this time. 08/28/2020 Patient is seen and examined in follow-up continues to have severe back pain 9 out of 10 on the pain scale. Patient is currently receiving Dilaudid and continues to request pain medication. Patient also reports to feeling constipated and has not had a bowel movement. Patient is passing gas. Patient is on lactulose as needed along with stool softeners. Orthopedic surgery following an recommending conservative management at this time. Patient does have a [employer] pacemaker and leads are not compatible with MRI and this was discussed with cardiology. Questionable area of discitis or T10 fracture on CT. Infectious disease also following and patient is currently maintained off of antibiotics. Patient has been afebrile and white blood count trending down and within normal limits. Patient continues to work with physical therapy. Pain management consulted and pending at this time. 08/29/2020 Patient is seen this morning with no acute overnight issues. Patient continues to be in pain of the lower back noted on the left that is radiating to the right and continues to have difficulty with pain management. Medication adjustments have been made and patient was started on a lidocaine patch along with Percocet and Ultram was discontinued. Orthopedic surgery following and will consult Dr. Peters for the possibility and discussion of kyphoplasty if warranted. A bone scan has been ordered and currently pending. Patient is unable to have an MRI due to [employer] pacemaker. Patient is agreeable to the bone scan but the possibility of a biopsy once results are reviewed. Anticoagulant remains on hold. Patient is afebrile. White blood count is 9.24. Patient denies any chest pain, shortness of breath, or palpitations. Patient denies any bowel movements although is passing gas. 08/30/2020 Patient had bone scan which showed some focal uptake that was abnormal in the T10-T12 levels with underlying occult metastatic disease not excluded with additional superimposed pathologic fracture at the T10 suspected. Dr. Peters is following and planning on biopsy and kyphoplasty of this questionable area. Will await report. Patient continues to have back discomfort noted on exam but states is currently tolerable as he has not been up out of the bed and is lying flat. Patient is afebrile with no reports of chest pain, shortness of breath, or palpitations. Review of systems: Constitutional: No reports of fatigue, fever, or chills Cardiovascular: No reports of chest pain or palpitations Respiratory: No reports of shortness of breath or cough GI: No reports of nausea, vomiting, or diarrhea : No reports of dysuria or retention Neurovascular: reports weakness no reports of numbness, reports continued back pain All medications have been reviewed Objective - Vital Signs Vital signs: Vital Signs Temp 97.5 F L 08/30/20 05:00 Pulse 72 08/30/20 05:00 Resp 16 08/30/20 05:00 BP 142/81 08/30/20 05:00 Pulse Ox 93 L 08/30/20 05:00 Intake & Output 08/29/20 08/30/20 08/30/20 18:59 06:59 18:59 Intake Total 1150 480 Balance 1150 480 Weight 134.3 kg 133.2 kg Intake: Oral 1150 480 Other: Voiding Method Urinal # Voids 3 2 - Exam Gen: This is a 80-year-old male laying flat in bed awake, alert and oriented 3, well-developed, well-nourished, obese. HEENT: Head is atraumatic, normocephalic. Pupils equal, round. Sclerae is anicteric. NECK: Supple. No JVD. No lymphadenopathy. No thyromegaly. LUNGS: Breath sounds diminished bilaterally with no wheezing or rhonchi noted. No intercostal retractions. HEART: Regular rate and rhythm. No murmur. ABDOMEN: Soft. Bowel sounds are present. No masses. No tenderness. EXTREMITIES: No pedal edema. No calf tenderness. NEUROLOGICAL: Patient is awake, alert and oriented x3. Cranial nerves 2 through 12 are grossly intact. - Labs CBC & Chem 7: 08/29/20 04:38 08/29/20 04:38 Labs: Abnormal Lab Results - Last 24 Hours (Table) 08/29/20 Range/Units 04:38 Carbon Dioxide 32.6 H (21.6-31.8) mmol/L BUN/Creatinine Ratio 21.00 H (12.00-20.00) Ratio Glucose 125 H (70-110) mg/dL Microbiology - Last 24 Hours (Table) 08/23/20 16:40 Blood Culture - Final Blood No Growth after 144 hours 08/25/20 09:36 Blood Culture - Preliminary Blood No Growth after 96 hours Assessment and Plan Assessment: -Intractable lower back pain without radiculopathy orthopedic surgery following along with pain management in infectious disease. Dr. Peters following and scheduling kyphoplasty with biopsy of this questionable T10 area. Bone scan was done showing some abnormal uptake in the T10-T12 area. -Abnormal CT/questionable discitis/osteomyelitis versus possible prior fracture: Infectious disease is following. Recommending CT-guided aspiration of the T10 area although radiology unable to perform. Will continue to hold anticoagulation at this time. Patient is afebrile and most recent white blood count is within normal limits. -Coronary artery disease -Congestive heart failure history -Permanent pacemaker, [employer] pacemaker per Dr. Summers and leads are not compatible with MRI -Hypertension -BPH -DVT prophylaxis: SCDs only early ambulation -Full code Plan: Multiple medical consultations following. Dr. Peters following and planning on kyphoplasty with biopsy today. Anticoagulation continues to be on hold in the event of possible procedure. . Patient continues to report no bowel movement as of yet and denies any feelings of constipation. Will continue bowel regimen. Will await surgical report.
[2020-08-30] MEDS ORDERED: HYDROcodone/APAP 5-325MG 1 EACH TAB PO PRN ×2 (15:10)
--- NOTE | 2020-08-30 15:16 | P.OP ---
Date of Procedure: 08/30/20 Preoperative Diagnosis: T10 pathologic impression fracture, back pain, abnormal uptake in bony signal at T10 on imaging, history of lung CA Postoperative Diagnosis: Same Anesthesia: GETA Pathology: other (T10 vertebral body biopsy and cultures 2 sent to pathology and micro-biology) Condition: stable Disposition: PACU Description of Procedure: BRIEF OPERATIVE NOTE Preoperative Diagnosis: T10 pathologic impression fracture, back pain, abnormal uptake in bony signal at T10 on imaging, history of lung CA Postoperative Diagnosis: Same Procedure: Kyphoplasty Vertebral body biopsy Use of biplanar fluoroscopic guidance Surgeon: Dr. Peters Pharmacy Benefits Coordinator: product development assistant Anesthesia: General anesthesia Estimated blood loss: Less than 10 mL Specimen: Vertebral body biopsy sent to pathology in formalin T10 as well as cultures 2 Complications: None apparent Components implanted: Bone cement and pronated with antibiotic Disposition: To recovery room in good stable condition. OPERATIVE INDICATIONS The patient has been having issues in their back over the past several weeks. He is not having any improvement despite aggressive conservative care and management. The patient has been through conservative treatment. He has history of lung cancer and was found have abnormal signal at the lower thoracic spine at T10 vertebral body. He was having significant low back pain extending up to his thoracic spine was able to fully determine if this was the source of his symptoms from T10. It further imaging which showed bony changes at T10-T11 and T12 with likely compression deformity at T10. Further services were interested in the possibly of bony biopsy. I felt that at the time of the bony biopsy would also potentially give him benefit to perform kyphoplasty for stabilization with antibiotic cement in the possibility it may be infectious process. This would give us information further as to the bony makeup as well as potential treatment at the area. The patient was interested in this process and signed informed consent. We discussed various treatment options including surgery, and the patient wishes to proceed with surgery We discussed the risk, patient's alternatives and benefits of surgery including but not limited to, risk of bleeding risk of infection, risk of need for further surgery, risk of decreased, loss of motion, loss of function, cement extravasation, nerve damage, paralysis, heart attack, blindness and . OPERATIVE SUMMARY After discussing all the risks, patient alternatives and benefits at length, the patient elected to proceed with surgical intervention, signed informed consent, and presented for their procedure. The patient was seen and examined in the preoperative holding area and the surgical site was marked. The patient was given antibiotics and brought to the operating room. The patient was sedated and intubated by anesthesia in standard fashion. The patient was positioned on to the operating room table in a prone position on the appropriate well-padded and well molded bilateral chest rolls. We were careful to pad any bony prominences and pressure points. We were careful to maintain the patient's cervical spine and good neutral alignment and position throughout. We used 2 C-arm machines to establish biplanar fluoroscopic guidance in AP and l ateral positions. We were able to localize the fractures appropriately counting up from the sacrum using the first segment as L5, and the first caudal ribbons T12 to localize T10. The patient was prepped and draped in a normal standard fashion. An appropriate timeout and keystone protocol performed. We were able to proceed with the surgery. The local wound area was infiltrated with local anesthetic. An incision was made over the lateral aspect of the pedicle over the appropriate levels with a small 2 mm stab incision on the right at T10. Intraoperative fluoroscopy was taken which showed a marker at the appropriate level. With the appropriate level positively confirmed, I was able to position a sharp trocar over the lateral aspect of the pedicle. As able to advance the trocar into the pedicle and into the posterior aspect of vertebral body being careful to avoid penetration cephalad caudad or medially. The trocar was placed appropriately into the posterior aspect of vertebral body at the appropriate levels. This was confirmed with C-arm guidance. With the trocar intact I was then able to take a bone biopsy with a biopsy punch or a bony drill. The biopsy specimen was passed off to be sent to pathology in formalin. I also see a small amount of bloody culture for micro- biology. There was very little bleeding from the area. I was then able to place the kyphoplasty balloon within the vertebral body. The position was checked on C-arm. I was able to inflate the balloon under low pressure and visualization with C-arm. The balloon was well enclosed within the vertebral body. The cement was prepared. We prepared the cement with antibiotic as well into the mix. With the cement at appropriate working condition the balloons were deflated and removed. I was able to place bony cement with trocar with the cement delivery device under low pressure. It had good fill within the vertebral body. There is no evidence of any extravasation of the cement posteriorly toward the canal. The cement was well contained at the appropriate levels. The cement was allowed to cure appropriately. The trochars removed and final images were taken on C-arm. This showed the cement at the appropriate levels. We were able to proceed with closure. The wound was cleaned and dried and dressed with the appropriate dressing. The drapes were broken down. The patient was gently rolled back onto their hospital bed being careful to maintain their cervical spine and good neutral alignment and position. They were woken up by anesthesia, extubated, and brought to the recovery room in good stable condition. The patient will be admitted to the hospital for observation and for appropriate postoperative care, medical management and monitoring. We will continue to follow them closely about the postoperative course.
[2020-08-30] MEDS: ceFAZolin 3 GM in SODIUM CHLORIDE 0.9% 100 ML IVPB SCH (15:59)
--- NOTE | 2020-08-30 23:18 | PN ---
PROGRESS NOTE DATE OF SERVICE: 08/30/2020 REASON FOR FOLLOWUP: Abnormal T10 with a question of pathologic fracture versus infection. INTERVAL HISTORY: The patient the patient is status post biopsy of the T10 spine as well as cultures. The patient denies having any chest pain, shortness of breath or cough. No nausea, vomiting, abdominal pain or diarrhea. PHYSICAL EXAMINATION: Blood pressure 172/74 with a pulse of 90, temperature 97. He is 92% on room air. General description is an elderly male lying in bed in no distress. RESPIRATORY SYSTEM: Unlabored breathing. Clear to auscultation anteriorly. HEART: S1, S2. Regular rate and rhythm. ABDOMEN: Soft. No tenderness. LABS: Hemoglobin is 14.7, white count 9.2, BUN of 21, creatinine 1.0. All cultures currently pending. DIAGNOSTIC IMPRESSION AND PLAN: Patient with T10 abnormality in this patient admitted to hospital with intractable back pain, concern for possible pathologic fracture. Clinically not behaving as discitis or osteomyelitis. We will wait for the cultures and biopsy report. Empirically he has been started on cefazolin; to continue perioperatively and monitor his clinical course closely. MMODL / IJN: [id number] /
[2020-08-31] MEDS: ceFAZolin 3 GM in SODIUM CHLORIDE 0.9% 100 ML IVPB SCH ×2
[2020-08-31] MEDS: LIDOCAINE 5% PATCH TOPICAL SCH (08:01)
[2020-08-31] MEDS: carvediloL 3.125 MG TAB PO SCH (08:03)
[2020-08-31] MEDS: MULTIVITAMINS, THERA 1 EACH TAB PO SCH (08:03)
[2020-08-31] MEDS: SPIRONOLACTONE 25 MG TAB PO SCH (08:03)
[2020-08-31] MEDS: TAMSULOSIN 0.4 MG CAP.ER.24H PO SCH (08:03)
[2020-08-31] MEDS: PANTOPRAZOLE 40 MG TABLET PO SCH (08:03)
[2020-08-31] MEDS: CYCLOBENZAPRINE 10 MG TAB PO SCH (08:03)
[2020-08-31] MEDS: FUROSEMIDE 20 MG TAB PO SCH (08:03)
[2020-08-31 09:31] LABS: Basophils # (A) 0.01 X 10*3/uL (0.00-0.10); Basophils % (A) 0.1 %; Eosinophils # (A) 0.06 X 10*3/uL (0.04-0.35); Eosinophils % (A) 0.8 %; HCT 45.2 % (39.6-50.0); HGB 14.7 g/dL (13.0-17.0); Lymphocytes # (A) 0.74 X 10*3/uL (0.90-5.00); Lymphocytes % (A) 9.4 %; MCH 30.3 pg (27.0-32.0); MCHC 32.5 g/dL (32.0-37.0); MCV 93.2 fL (80.0-97.0); Mean Platelet Volume 10.4 fL (9.5-12.2); Monocytes # (A) 0.69 X 10*3/uL (0.20-1.00); Monocytes % (A) 8.7 %; Neutrophils # (A) 6.34 X 10*3/uL (1.80-7.70); Neutrophils % (A) 80.4 %; Platelet Count 196 X 10*3/uL (140-440); RBC 4.85 X 10*6/uL (4.40-5.60); RDW 14.2 % (11.5-14.5); WBC 7.89 X 10*3/uL (4.50-10.00)
[2020-08-31 09:44] LABS: African American GFR (CKD) 99.2 (60.0-200.0); Anion Gap 9.8 mmol/L (4.00-12.00); BUN/Creat Ratio 23.75 Ratio (12.00-20.00); Calcium 8.7 mg/dL (8.7-10.3); Carbon Dioxide 30.2 mmol/L (21.6-31.8); Non-African American GFR(CKD) 85.6 (60.0-200.0); Potassium 4.5 mmol/L (3.5-5.5)
[2020-08-31] MEDS: LACTULOSE 20 GM/30 ML CUP PO PRN (11:38)
--- NOTE | 2020-08-31 13:56 | PN ---
PROGRESS NOTE DATE OF SERVICE: 08/31/2020 REASON FOR FOLLOWUP: Abnormal T10 vertebra. INTERVAL HISTORY: The patient is currently afebrile. The patient is feeling better. Breathing comfortably. Denies having any chest pain or cough. Back pain is currently controlled. No vomiting and no diarrhea. PHYSICAL EXAMINATION: Blood pressure 136/73, pulse of 86, temperature 98.3. He is 94% on 3 L nasal cannula. General description is an elderly male up in the bed in no distress. RESPIRATORY SYSTEM: Unlabored breathing, clear to auscultation anteriorly. HEART: S1, S2. Regular rate and rhythm. ABDOMEN: Soft, no tenderness. LABS: Hemoglobin is 14.7, white count 7.89, creatinine 0.8. Wound culture so far negative. DIAGNOSTIC IMPRESSION AND PLAN: Patient with abnormal T10 vertebra, concern for infection, question of pathological. The patient is currently being monitored off antibiotic therapy. Orthopedics has cleared the patient for discharge. Patient has been advised to call on Thursday to make sure cultures are followed and those are negative. If negative, no further workup. Continue workup per Ortho and Primary. MMODL / IJN: [id number] /
[2020-08-31 14:01] VITALS: BP 150/74; PULSE 80; RESP 18; TEMP 97.8
--- NOTE | 2020-08-31 15:49 | P.DS ---
Providers Date of admission: 08/22/20 15:52 Expected date of discharge: 08/31/20 Attending physician: Shannon Nichols Consults: 08/22/20 15:40 Consult Physician Stat Consulting Provider: Carlos Cee Consult Reason/Comments: intractable back pain Do you want consulting provider notified?: Yes 08/23/20 15:49 Consult Physician Routine Consulting Provider: Miah Lam Consult Reason/Comments: epidural abscess? back pain Do you want consulting provider notified?: Yes 08/27/20 15:17 Consult Physician Stat Consulting Provider: Amy Donohue Consult Reason/Comments: back pain, chronic T-10 Do you want consulting provider notified?: Yes 08/29/20 09:54 Consult Physician Routine Consulting Provider: Cari Peters Consult Reason/Comments: Intractable back pain, possible T-10 biopsy Do you want consulting provider notified?: Yes Primary care physician: Fredy Rodriguez Hospital Course: Final diagnosis -Intractable lower back pain without radiculopathy -Status post kyphoplasty with biopsy of T10 vertebral body -Abnormal CT/questionable discitis/osteomyelitis versus possible pathologic fracture -Coronary artery disease -Congestive heart failure history -Permanent pacemaker, [employer] pacemaker not compatible with MRI -Hypertension -BPH -DVT prophylaxis -Full code Discharge disposition Patient is being discharged in a stable condition with guarded prognosis to home. Patient will follow-up with Dr. Rodriguez in the outpatient setting upon discharge. Patient will also follow-up with Dr. Peters and infectious disease in the outpatient setting. Patient is okay to resume anticoagulant and will follow-up with orthopedic surgery outpatient for biopsy results. Total time taken is greater than 35 minutes. Hospital course Intractable low back pain without radiculopathy Abnormal CT/questionable discitis/osteomyelitis versus possible fracture 80-year-old male patient admitted to the hospital with intractable back pain; CT of the lumbar spine revealed changes within T10 vertebral body with question of pathological fracture versus infection; orthopedic surgery and ID on board 08/26/2020 Patient is seen and evaluated in room with at bedside; reports ambulation with therapy which caused worsening of pain; patient reports improvement in pain by increasing frequency of Dilaudid Vital signs remained stable except for elevated blood pressure of 168/87 CT has been reviewed by radiology, orthopedic surgery and ID; patient is scheduled for guided aspiration of T10; patient is currently on L Valle which has been put on hold with plans for CT-guided aspiration on Thursday08/27/2020 Patient is seen in follow-up and continues to have extreme back pain. Patient was scheduled to undergo aspiration of the T10 vertebral area with the possibility of infection. Infectious disease and orthopedic surgery are following. Per Dr. Baum radiology there is minimal area of concern at the T10 that would cause for aspirating and not willing to perform. Anti- coagulation is currently on hold and will continue to do so. Pain management consulted and pending at this time. 08/28/2020 Patient is seen and examined in follow-up continues to have severe back pain 9 out of 10 on the pain scale. Patient is currently receiving Dilaudid and continues to request pain medication. Patient also reports to feeling constipated and has not had a bowel movement. Patient is passing gas. Patient is on lactulose as needed along with stool softeners. Orthopedic surgery following an recommending conservative management at this time. Patient does have a [employer] pacemaker and leads are not compatible with MRI and this was discussed with cardiology. Questionable area of discitis or T10 fracture on CT. Infectious disease also following and patient is currently maintained off of antibiotics. Patient has been afebrile and white blood count trending down and within normal limits. Patient continues to work with physical therapy. Pain management consulted and pending at this time. 08/29/2020 Patient is seen this morning with no acute overnight issues. Patient continues to be in pain of the lower back noted on the left that is radiating to the right and continues to have difficulty with pain management. Medication adjustments have been made and patient was started on a lidocaine patch along with Percocet and Ultram was discontinued. Orthopedic surgery following and will consult Dr. Peters for the possibility and discussion of kyphoplasty if warranted. A bone scan has been ordered and currently pending. Patient is unable to have an MRI due to [employer] pacemaker. Patient is agreeable to the bone scan but the possibility of a biopsy once results are reviewed. Anticoagulant remains on hold. Patient is afebrile. White blood count is 9.24. Patient denies any chest pain, shortness of breath, or palpitations. Patient denies any bowel movements although is passing gas. 08/30/2020 Patient had bone scan which showed some focal uptake that was abnormal in the T10-T12 levels with underlying occult metastatic disease not excluded with additional superimposed pathologic fracture at the T10 suspected. Dr. Peters is following and planning on biopsy and kyphoplasty of this questionable area. Will await report. Patient continues to have back discomfort noted on exam but states is currently tolerable as he has not been up out of the bed and is lying flat. Patient is afebrile with no reports of chest pain, shortness of breath, or palpitations. 08/31/2020 Patient is currently sitting up in the chair with no acute overnight issues. Patient continues to have some back discomfort although states has improved and has been getting up and a walker has been provided. Patient to follow-up with orthopedic surgery Dr. Peters outpatient next week for biopsy results. Patient will also follow-up with infectious disease in the outpatient setting. Patient is okay to resume anticoagulant eliquis. Patient underwent kyphoplasty yest erday. Currently no reports of chest pain, shortness of breath, or palpitations. Patient is afebrile. No reports of nausea or vomiting and patient is tolerating diet. Patient will be discharged home today. On exam vital signs are stable. Cardio S1, S2 are muffled. Respiratory system shows diminished breath sounds at the bases with no wheezing or rhonchi noted. Abdomen is soft, obese, and nontender. Nervous system shows no focal deficits. Please refer to medication reconciliation sheet for a list of medications. Patient Condition at Discharge: Stable Plan - Discharge Summary New Discharge Prescriptions: New Lidocaine 5% Patch [Lidoderm 5% Patch] 1 patch TOPICAL DAILY 30 Days #30 patch oxyCODONE-APAP 7.5-325MG [Percocet 7.5-325 mg] 1 each PO Q6HR PRN #20 tab PRN Reason: Pain Continue Aspirin 81 mg PO Q48H Multivitamins, Thera [Multivitamin (formulary)] 1 tab PO DAILY Tamsulosin [Flomax] 0.4 mg PO DAILY Furosemide [Lasix] 20 mg PO DAILY Spironolactone 25 mg PO DAILY Apixaban [Eliquis] 5 mg PO BID carvediloL [Coreg] 3.125 mg PO BID Cyclobenzaprine [Flexeril] 10 mg PO BID PRN PRN Reason: Muscle Spasm Discontinued traMADol HCL 50 - 100 mg PO Q6H PRN PRN Reason: Pain Discharge Medication List Aspirin 81 mg PO Q48H 11/27/16 [History] Multivitamins, Thera [Multivitamin (formulary)] 1 tab PO DAILY 11/27/16 [History] Furosemide [Lasix] 20 mg PO DAILY 02/19/18 [History] Tamsulosin [Flomax] 0.4 mg PO DAILY 02/19/18 [History] Spironolactone 25 mg PO DAILY 09/08/19 [History] Apixaban [Eliquis] 5 mg PO BID 08/22/20 [History] Cyclobenzaprine [Flexeril] 10 mg PO BID PRN 08/22/20 [History] carvediloL [Coreg] 3.125 mg PO BID 08/22/20 [History] Lidocaine 5% Patch [Lidoderm 5% Patch] 1 patch TOPICAL DAILY 30 Days #30 patch 08/31/20 [Rx] oxyCODONE-APAP 7.5-325MG [Percocet 7.5-325 mg] 1 each PO Q6HR PRN #20 tab 08/31/20 [Rx] Follow up Appointment(s)/Referral(s): Cari Peters DO [Doctor of Osteopathic Medicine] - 09/07/20 2:30 pm (patient will see rimma) Fredy Rodriguez III, MD [Primary Care Provider] - 09/04/20 9:30 am (Appt. with Rachell, not Dr. Rodriguez) [facility] [NON-STAFF] - 1 Week Miah Lam MD [STAFF PHYSICIAN] - 09/03/20 (Infectious disease doctor Call office on Thursday to check on culture results) Patient Instructions/Handouts: Oxycodone/Acetaminophen (By mouth), Lidocaine Patch (On the skin), Heart Failure (DC), Acute Low Back Pain (ED) Activity/Diet/Wound Care/Special Instructions: Activity Limited until follow-up Follow-up with primary care provider upon discharge Follow-up with medical consultants Continue current diet Discharge Disposition: HOME SELF-CARE
--- NOTE | 2020-09-05 07:12 | CDI ---
Documentation Clarification Form Date: 09/05/20 From: Johana Reynolds Phone: Admit Date: 08/22/2020 03:52:00 PM Patient Name: De Prieto Visit Number: [id number] Discharge Date: 08/31/2020 02:30:00 PM ATTENTION: The Clinical Documentation Specialists (CDI) and [facility] Coding Staff appreciate your assistance in clarifying documentation. Please respond to the clarification below the line at the bottom and electronically sign. The CDI & [facility] Coding staff will review the response and follow-up if needed. Please note: Queries are made part of the Legal Health Record. If you have any questions, please contact the author of this message via ITS. Dr. 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 Patient history/risk factors: lung ca Clinical Indicators: Severe intractable back pain with failure of outpatient treatment with possible lumbar degenerative joint disease. Treatment: Kyphoplasty and Vertebral body biopsy In your professional opinion, do you agree with the pathology report specifying the T10 pathologic compression fx as due to metastatic poorly differentiated non-small cell carcinoma from the lung? Yes No Other (please specify) Unable to determine Yes, non-small cell carcinoma from the lung MTDD
--- NOTE | 2020-09-05 07:24 | CDI ---
Documentation Clarification Form Date: 09/05/20 From: Johana Reynolds Phone: Admit Date: 08/22/2020 03:52:00 PM Patient Name: De Prieto Visit Number: [id number] Discharge Date: 08/31/2020 02:30:00 PM ATTENTION: The Clinical Documentation Specialists (CDI) and [facility] Coding Staff appreciate your assistance in clarifying documentation. Please respond to the clarification below the line at the bottom and electronically sign. The CDI & [facility] Coding staff will review the response and follow-up if needed. Please note: Queries are made part of the Legal Health Record. If you have any questions, please contact the author of this message via ITS. Dr. Car Maldonado, The diagnosis bacteremia was documented in Dr Lam's PN on 08/25, but is not noted in subsequent documentation. History/Risk Factors: lung ca with T10 pathologic impression fracture, HTN w CHF, morbid obesity w BMI of 41.0, CAD, DDD & spondylosis of L5-S1 Clinical Indicators: Back pain with abnormal CT with evidence of bacteremia. Positive blood cultures Treatment: IV Vanco Please clarify if the patient had bacteremia with diskitis/osteomyelitis: Present/active/treated Ruled out Other, please specify Clinically unable to determine Present/active/treated MTDD
== END 2020-08-31 14:30 | disposition home or self-care (01) | DRG 478 ==
LOC: EC 11:51 → OBSVTOIN 15:52 → 6NMEDSUR 15:52 → 5NMEDONC 08-25 22:53
PROVIDERS: ADMIT Hospitalist; ATTEND Hospitalist
PROC: 0PS43ZZ Reposition Thoracic Vertebra, Percutaneous Approach (ICD-10-PCS; principal; 2020-08-22)
PROC: 0PB43ZX Excision of Thoracic Vertebra, Percutaneous Approach, Diagnostic (ICD-10-PCS; principal; 2020-08-22)
PROC: 0PU43JZ Supplement Thoracic Vertebra with Synthetic Substitute, Percutaneous Approach (ICD-10-PCS; principal; 2020-08-22)
DX: M84.58XA Pathological fracture in neoplastic disease, other specified site, initial encounter for fracture (principal); Z68.41 Body mass index [BMI] 40.0-44.9, adult; C79.51 Secondary malignant neoplasm of bone; C34.90 Malignant neoplasm of unspecified part of unspecified bronchus or lung; R78.81 Bacteremia; I11.0 Hypertensive heart disease with heart failure; I50.9 Heart failure, unspecified; E66.01 Morbid (severe) obesity due to excess calories; M47.817 Spondylosis without myelopathy or radiculopathy, lumbosacral region; I25.10 Atherosclerotic heart disease of native coronary artery without angina pectoris; G89.29 Other chronic pain; M79.18 Myalgia, other site; Z20.822 Contact with and (suspected) exposure to COVID-19; K59.00 Constipation, unspecified; N40.0 Benign prostatic hyperplasia without lower urinary tract symptoms; I25.2 Old myocardial infarction; M19.90 Unspecified osteoarthritis, unspecified site; R26.9 Unspecified abnormalities of gait and mobility; Z79.01 Long term (current) use of anticoagulants; Z79.82 Long term (current) use of aspirin; Z79.899 Other long term (current) drug therapy; Z96.653 Presence of artificial knee joint, bilateral; Z85.118 Personal history of other malignant neoplasm of bronchus and lung; Z87.09 Personal history of other diseases of the respiratory system; Z86.19 Personal history of other infectious and parasitic diseases; Z87.891 Personal history of nicotine dependence; Z95.5 Presence of coronary angioplasty implant and graft; Z95.0 Presence of cardiac pacemaker; Z87.19 Personal history of other diseases of the digestive system; Z98.42 Cataract extraction status, left eye; Z98.41 Cataract extraction status, right eye; Z71.3 Dietary counseling and surveillance; Z98.890 Other specified postprocedural states; Z88.5 Allergy status to narcotic agent; Z88.8 Allergy status to other drugs, medicaments and biological substances; Z82.3 Family history of stroke; Z80.9 Family history of malignant neoplasm, unspecified; Z82.49 Family history of ischemic heart disease and other diseases of the circulatory system
CPT/HCPCS: 36415; 71046; 72100; 72128; 72131; 78306; 80048; 80053; 81001; 83735; 84153; 84484; 85025; 85610; 85652; 85730; 86140; 87040; 87070; 87075; 87077; 87086; 87186; 87205; 87635; 88307; 88311; 88341; 88342; 93005; 94760; 96374; 96376; 99285

== ENCOUNTER 2020-09-03 09:30 | Emergency (ER) | payer MEDICARE ==
[2020-09-03 09:35] VITALS: RESP 18
[2020-09-03] MEDS ORDERED: HYDROmorphone 1 MG/ML 1 ML SYRINGE IVP STA (10:08)
[2020-09-03 10:27] LABS: Basophils % (A) 0 %; Eosinophils # (A) 0.4 k/uL (0-0.7); Eosinophils % (A) 4 %; HCT 50.1 % (39.0-53.0); HGB 17.2 gm/dL (13.0-17.5); Lymphocytes # (A) 1.1 k/uL (1.0-4.8); Lymphocytes % (A) 13 %; MCH 30.4 pg (25.0-35.0); MCHC 34.2 g/dL (31.0-37.0); MCV 88.7 fL (80.0-100.0); Mean Platelet Volume 7.4; Monocytes # (A) 0.4 k/uL (0-1.0); Monocytes % (A) 5 %; Neutrophils # (A) 6.6 k/uL (1.3-7.7); Neutrophils % (A) 77 %; Platelet Count 225 k/uL (150-450); RBC 5.65 m/uL (4.30-5.90); WBC 8.6 k/uL (3.8-10.6)
[2020-09-03 10:31] LABS: Appearance,Urine Clear (Clear); Bilirubin,Urine Negative (Negative); Blood,Urine Negative (Negative); Color,Urine Yellow; Glucose,Urine (UA) Negative (Negative); Hyaline Casts,Urine 1 /lpf (0-2); Ketones,Urine Negative (Negative); Leukocyte Esterase,Urine Negative (Negative); Mucus,Urine Occasional /hpf; Nitrite,Urine Negative (Negative); PH, Urine 6.5 (5.0-8.0); Protein,Urine 1+ (Negative); RBC,Urine 3 /hpf (0-5); Specific Gravity,Urine 1.019 (1.001-1.035); Squamous Epithelial Cell,Urine <1 /hpf (0-4); Urobilinogen,Urine <2.0 mg/dL (<2.0); WBC,Urine 1 /hpf (0-5)
[2020-09-03 10:36] LABS: ALT 25 U/L (4-49); African American GFR (CKD) >90 (>60 ml/min/1.73 sqM); Amylase 80 U/L (30-110); Anion Gap 12 mmol/L; Blood Urea Nitrogen 14 mg/dL (9-20); Calcium 9.3 mg/dL (8.4-10.2); Carbon Dioxide 25 mmol/L (22-30); Chloride 102 mmol/L (98-107); Glucose 142 mg/dL (74-99); Lipase 62 U/L (23-300); Non-African American GFR(CKD) >90 (>60 ml/min/1.73 sqM); Sodium 139 mmol/L (137-145); Total Bilirubin 1.1 mg/dL (0.2-1.3); Total Protein 7.1 g/dL (6.3-8.2)
--- NOTE | 2020-09-03 10:39 | XR ---
EXAMINATION TYPE: XR KUB DATE OF EXAM: 09/03/2020 Comparison: None Clinical History: 80-year-old male abdominal pain Findings: Left anterior chest wall AICD generator with right atrial and right ventricular leads. Motion in the lower lungs limits the assessment. There seems to be underlying bilateral lung nodules. No evidence for free intraperitoneal air. No dilated small bowel. Air-fluid levels are present throughout the colon with air and stool seen ext ending distally to the rectum with moderate overall stool. No definite suspicious calcifications. Vertebroplasty changes at T10. IMPRESSION: 1. Air-fluid levels throughout the colon. Correlate for diarrheal state related to enteritis or a gen eralized ileus. 2. Overall nonobstructive bowel gas pattern. Moderate stool burden. No free air. 3. Partially visualized bilateral pulmonary nodules. 4. Interval vertebroplasty change at T10.
[2020-09-03 10:41] LABS: Potassium 4.5 mmol/L (3.5-5.1)
[2020-09-03 10:42] LABS: AST 37 U/L (17-59); Alkaline Phosphatase 120 U/L (38-126)
--- NOTE | 2020-09-03 10:42 | ED ---
Abdominal Pain HPI - General Chief Complaint: Abdominal Pain Stated Complaint: Poss Blockage Time Seen by Provider: 09/03/20 09:42 Source: patient Mode of arrival: wheelchair Limitations: physical limitation - History of Present Illness Initial Comments: 80-year-old male presented for abdominal distention, constipation. Patient states he had a good bowel movement in 2 weeks. He states he's been taking a lot of opioids giving had a recent back injury and was hospitalized for it he states his follow-up with that on Thursday with Dr. Guzman he states he has had back pain since B denies any loss of bowel bladder control urinary retention he denies any loss of sensation or weakness of the lower extremities. He states that walking doesn't increase the pain patient denies any fevers he denies any new falls or trauma he states he does not want to be evaluated for the back pain but would like something for the continued discomfort. Patient denies any nausea vomiting chest pain he denies any shortness of breath. Patient's was concerned he possibly had a bowel blockage secondary to the constipation despite taking oral anti-constipation medications and presented to the ER for further evaluation - Related Data Home Medications Medication Instructions Recorded Confirmed Aspirin 81 mg PO Q48H 11/27/16 09/03/20 Multivitamins, Thera [Multivitamin 1 tab PO DAILY 11/27/16 09/03/20 (formulary)] Furosemide [Lasix] 20 mg PO DAILY 02/19/18 09/03/20 Tamsulosin [Flomax] 0.4 mg PO DAILY 02/19/18 09/03/20 Spironolactone 25 mg PO DAILY 09/08/19 09/03/20 Apixaban [Eliquis] 5 mg PO BID 08/22/20 09/03/20 Cyclobenzaprine [Flexeril] 10 mg PO BID PRN 08/22/20 09/03/20 carvediloL [Coreg] 3.125 mg PO BID 08/22/20 09/03/20 oxyCODONE-APAP 7.5-325MG [Percocet 1 tab PO Q6HR PRN 09/03/20 09/03/20 7.5-325 mg] Previous Rx's Medication Instructions Recorded Amoxic-Pot Clav 875-125Mg 1 tab PO Q12HR 7 Days #14 tab 09/03/20 [Augmentin 875-125] Allergies Allergy/AdvReac Type Severity Reaction Status Date / Time hydrocodone [From Vicodin] Allergy Hallucinati Verified 09/03/20 10:45 ons [id number]-Kxb Reductase AdvReac MUSCLE PAIN Verified 09/03/20 10:45 Inhibitor Review of Systems ROS Statement: Those systems with pertinent positive or pertinent negative responses have been documented in the HPI. ROS Other: All systems not noted in ROS Statement are negative. 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 carbon monoxide poisoning 23 September 2019 diagnosis lung cancer Last Myocardial Infarction Date:: mar 2018 History of Any Multi-Drug Resistant Organisms: None Reported Past Surgical History: Heart Catheterization With Stent, Joint Replacement, Orthopedic Surgery, Pacemaker Additional Past Surgical History / Comment(s): BILAT TK replacement. BILAT KNEE SX. COLONOSCOPY. BILAT CATARACTS REMOVED. 2 heart stents 03/23 Past Anesthesia/Blood Transfusion Reactions: Motion Sickness Date of Last Stent Placement:: 03/23 Type of Cardiac Device: Permanent Pacemaker Device Placement Date:: 02/20 Past Psychological History: No Psychological Hx Reported Smoking Status: Former smoker Past Alcohol Use History: Rare Past Drug Use History: None Reported - Past Family History Sister(s) Family Medical History: Cancer Brother(s) Family Medical History: Cancer Additional Family Medical History / Comment(s): 3 brothers cancer Father Family Medical History: Coronary Artery Disease (CAD), CVA/TIA, Myocardial Infarction ([place]) Additional Family Medical History / Comment(s): Father had TIAs and MIs. He between the ages of 62-68yrs from what pt believes was a [place] Mother Family Medical History: Myocardial Infarction ([place]) Additional Family Medical History / Comment(s): Mother of a [place] at the age of 88yrs. General Exam - General Exam Comments Initial Comments: General: The patient is awake and alert, in no distress, and does not appear acutely ill. Eye: +3 mm pupils are equal, round and reactive to light, extra-ocular movements are intact. No nystagmus. There is normal conjunctiva bilaterally. No signs of icterus. Ears, nose, mouth and throat: There are moist mucous membranes and no oral lesions. Neck: The neck is supple, there is no tenderness or JVD. Cardiovascular: There is a regular rate and rhythm. No murmur, rub or gallop is appreciated. Respiratory: Lungs are clear to auscultation, respirations are non-labored, breath sounds are equal. No wheezes, stridor, rales, or rhonchi. Gastrointestinal: Slightly distended abdomen, appears to have mild diffuse tenderness--no severe pain, abdomen without masses or organomegaly noted. There is no rebound or guarding present. No CVA tenderness. Musculoskeletal: Normal ROM, no tenderness. Strength 5/5 of the LE b/l equally, able to ambulate b/l (+) SLR.. Sensation intact of the LE b/l including the saddle region. Radial and DP pulses equal bilaterally 2+. Neurological: A&O x 3. CN II-XII intact, There are no obvious motor or sensory deficits. Coordination appears grossly intact. Speech is normal. Skin: Skin is warm and dry and no rashes or lesions are noted. Psychiatric: Cooperative, appropriate mood & affect, normal judgment. Limitations: physical limitation Course Vital Signs 09/03/20 09/03/20 09/03/20 09:32 11:12 13:22 Temperature 97.9 F Pulse Rate 67 88 92 Respiratory 18 18 18 Rate Blood Pressure 141/78 162/100 130/87 O2 Sat by Pulse 95 99 98 Oximetry Medical Decision Making - Medical Decision Making Labs stable. KUB no obstruction obvious, however lots of air fluid levels. CT obtained, no obstruction. Layering of diarrhea, formed stool noted terminally. Colitis appreciated. reviewed imaging with Dr. Rey--who is agreeable to care plan of enema with outpatient oral anitbiotics with GI f/u and Dr Peters f/u for back pain. Patient agreeable to this care plan. he was offered admission for back pain if needed acute rehabilitation. Pt states he can get around and would rather go home, he felt much relief after bowel movement from enema and was dicharged appearing well. - Lab Data Result diagrams: 09/03/20 10:00 09/03/20 10:00 Lab Results 09/03/20 09/03/20 09/03/20 Range/Units 10:00 10:00 10:12 WBC 8.6 (3.8-10.6) k/uL RBC 5.65 (4.30-5.90) m/uL Hgb 17.2 (13.0-17.5) gm/dL Hct 50.1 (39.0-53.0) % MCV 88.7 (80.0-100.0) fL MCH 30.4 (25.0-35.0) pg MCHC 34.2 (31.0-37.0) g/dL RDW 15.0 (11.5-15.5) % Plt Count 225 (150-450) k/uL MPV 7.4 Neutrophils % 77 % Lymphocytes % 13 % Monocytes % 5 % Eosinophils % 4 % Basophils % 0 % Neutrophils # 6.6 (1.3-7.7) k/uL Lymphocytes # 1.1 (1.0-4.8) k/uL Monocytes # 0.4 (0-1.0) k/uL Eosinophils # 0.4 (0-0.7) k/uL Basophils # 0.0 (0-0.2) k/uL Sodium 139 (137-145) mmol/L Potassium 4.5 (3.5-5.1) mmol/L Chloride 102 (98-107) mmol/L Carbon Dioxide 25 (22-30) mmol/L Anion Gap 12 mmol/L BUN 14 (9-20) mg/dL Creatinine 0.66 (0.66-1.25) mg/dL Est GFR (CKD-EPI)AfAm >90 (>60 ml/min/1.73 sqM) Est GFR (CKD-EPI)NonAf >90 (>60 ml/min/1.73 sqM) Glucose 142 H (74-99) mg/dL Plasma Lactic Acid Franklyn (0.7-2.0) mmol/L Calcium 9.3 (8.4-10.2) mg/dL Total Bilirubin 1.1 (0.2-1.3) mg/dL AST 37 (17-59) U/L ALT 25 (4-49) U/L Alkaline Phosphatase 120 (38-126) U/L Total Protein 7.1 (6.3-8.2) g/dL Albumin 4.0 (3.5-5.0) g/dL Amylase 80 (30-110) U/L Lipase 62 (23-300) U/L Urine Color Yellow Urine Appearance Clear (Clear) Urine pH 6.5 (5.0-8.0) Ur Specific [place] 1.019 (1.001-1.035) Urine Protein 1+ H (Negative) Urine Glucose (UA) Negative (Negative) Urine Ketones Negative (Negative) Urine Blood Negative (Negative) Urine Nitrite Negative (Negative) Urine Bilirubin Negative (Negative) Urine Urobilinogen <2.0 (<2.0) mg/dL Ur Leukocyte Esterase Negative (Negative) Urine RBC 3 (0-5) /hpf Urine WBC 1 (0-5) /hpf Ur Squamous Epith Cells <1 (0-4) /hpf Hyaline Casts 1 (0-2) /lpf Urine Mucus Occasional H (None) /hpf 09/03/20 Range/Units 10:29 WBC (3.8-10.6) k/uL RBC (4.30-5.90) m/uL Hgb (13.0-17.5) gm/dL Hct (39.0-53.0) % MCV (80.0-100.0) fL MCH (25.0-35.0) pg MCHC (31.0-37.0) g/dL RDW (11.5-15.5) % Plt Count (150-450) k/uL MPV Neutrophils % % Lymphocytes % % Monocytes % % Eosinophils % % Basophils % % Neutrophils # (1.3-7.7) k/uL Lymphocytes # (1.0-4.8) k/uL Monocytes # (0-1.0) k/uL Eosinophils # (0-0.7) k/uL Basophils # (0-0.2) k/uL Sodium (137-145) mmol/L Potassium (3.5-5.1) mmol/L Chloride (98-107) mmol/L Carbon Dioxide (22-30) mmol/L Anion Gap mmol/L BUN (9-20) mg/dL Creatinine (0.66-1.25) mg/dL Est GFR (CKD-EPI)AfAm (>60 ml/min/1.73 sqM) Est GFR (CKD-EPI)NonAf (>60 ml/min/1.73 sqM) Glucose (74-99) mg/dL Plasma Lactic Acid Franklyn 1.1 (0.7-2.0) mmol/L Calcium (8.4-10.2) mg/dL Total Bilirubin (0.2-1.3) mg/dL AST (17-59) U/L ALT (4-49) U/L Alkaline Phosphatase (38-126) U/L Total Protein (6.3-8.2) g/dL Albumin (3.5-5.0) g/dL Amylase (30-110) U/L Lipase (23-300) U/L Urine Color Urine Appearance (Clear) Urine pH (5.0-8.0) Ur Specific [place] (1.001-1.035) Urine Protein (Negative) Urine Glucose (UA) (Negative) Urine Ketones (Negative) Urine Blood (Negative) Urine Nitrite (Negative) Urine Bilirubin (Negative) Urine Urobilinogen (<2.0) mg/dL Ur Leukocyte Esterase (Negative) Urine RBC (0-5) /hpf Urine WBC (0-5) /hpf Ur Squamous Epith Cells (0-4) /hpf Hyaline Casts (0-2) /lpf Urine Mucus (None) /hpf Disposition Clinical Impression: Colitis, Constipation, Back pain Disposition: HOME SELF-CARE Condition: Good Instructions (If sedation given, give patient instructions): Constipation (ED), High Fiber Diet (ED) Additional Instructions: Please use medication as discussed. Please follow-up with family doctor in the next 2 days as well as GI as dicussed (Dr eYung-call to make appointment). Increase fluids, take senna daily. Please return to emergency room if the symptoms increase or worsen or for any other concerns. Prescriptions: Amoxic-Pot Clav 875-125Mg [Augmentin 875-125] 1 tab PO Q12HR 7 Days #14 tab Is patient prescribed a controlled substance at d/c from ED?: No Referrals: Fredy Rodriguez III, MD [Primary Care Provider] - 1-2 days Elizabet Yeung MD [STAFF PHYSICIAN] - 1-2 days Time of Disposition: 12:29
[2020-09-03] MEDS ORDERED: SODIUM CHLORIDE 0.9% 500 ML 500 ML IV ONE (11:20)
[2020-09-03] MEDS ORDERED: SODIUM CHLORIDE 0.9% 1,000 ML IV SCH (11:30)
[2020-09-03] MEDS ORDERED: HYDROmorphone 1 MG/ML 1 ML SYRINGE IVP PRN (11:36)
--- NOTE | 2020-09-03 11:59 | CT ---
EXAMINATION TYPE: CT abdomen pelvis w con DATE OF EXAM: 09/03/2020 COMPARISON: Prior PET CT 06/15/2020 and older studies. HISTORY: Low back and abdominal pain, history of lung cancer. CT DLP: 2449.9 mGycm, Automated Exposure Control for Dose Reduction was Utilized. CONTRAST: CT scan of the abdomen and pelvis is performed without oral but 1with IV Contrast, patient injected w ith 100 mL of Isovue 300. FINDINGS: LUNG BASES: Cardiomegaly with pacemaker/defibrillator leads is redemonstrated. There is 1.8 cm left l ower lobe nodule axial image 2 stable or slightly smaller from prior 2017 CT. There is stable 8mm sub pleural nodule medial right lung base axial image [address] Right-sided gynecomastia redemonstr ated. LIVER/GB: Visualized liver is heterogeneously hypodense consistent with diffuse fatty infiltration. S lightly lobulated thin-walled 2.1 cm cyst in the right hepatic lobe axial image 17 is unchanged from 2017 CT. Intraluminal gallstone in gallbladder redemonstrated. PANCREAS: No significant abnormality is seen. SPLEEN: No significant abnormality is seen. ADRENALS: Slight asymmetric thickening anterior right adrenal limb and left adrenal gland presumed be nign lipid rich hyperplasia is unchanged. KIDNEYS: There is 9 mm nonobstructing calculus upper pole left kidney measures 37 redemonstrated. The re is punctate 3 mm calculus anteriorly upper and midpole level axial image 41 redemonstrated. Symmet jnenie cortical medullary uptake and excretion without hydronephrosis seen bilaterally. Some cortical th inning bilaterally remains present. BOWEL: No suspicious small or large bowel dilatation fluid within right colon could reflect product s of mild uncomplicated acute colitis versus diarrhea. PROSTATE/SEMINAL VESICLES: No gross abnormality seen. LYMPH NODES: No greater than 1cm abdominal or pelvic lymph nodes are appreciated. OSSEOUS STRUCTURES: Vertebroplasty at T10 level with mild minimal height loss. OTHER: Moderate to severe calcified plaque of the aorta extends into branch vessels. IMPRESSION: Proximal colonic uncomplicated mild colitis and/or diarrhea. Correlate clinically. Otherw ise no suspicious acute findings seen.
[2020-09-03 13:23] VITALS: BP 130/87; PULSE 92; TEMP 97.9
== END 2020-09-03 13:22 | disposition home or self-care (01) ==
LOC: EC 09:30
DX: K52.9 Noninfective gastroenteritis and colitis, unspecified (principal); I25.10 Atherosclerotic heart disease of native coronary artery without angina pectoris; I50.9 Heart failure, unspecified; I25.2 Old myocardial infarction; Z87.891 Personal history of nicotine dependence; Z79.01 Long term (current) use of anticoagulants; I11.0 Hypertensive heart disease with heart failure
CPT/HCPCS: 36415; 51798; 74018; 74177; 80053; 81001; 82150; 83605; 83690; 85025; 99284

== ENCOUNTER 2020-09-05 11:15 | Inpatient (IN) | payer MEDICARE ==
[2020-09-05] MEDS ORDERED: NALOXONE 0.4 MG/ML 1 ML VIAL IV PRN (13:33)
[2020-09-05] MEDS ORDERED: TEMAZEPAM 15 MG CAP PO PRN (13:39)
[2020-09-05] MEDS: CYCLOBENZAPRINE 10 MG TAB PO PRN (14:24)
[2020-09-05] MEDS: oxyCODONE-APAP 10-325MG 1 EACH TAB PO PRN (14:24)
[2020-09-05] MEDS: KETOROLAC 15 MG/ML 1 ML VIAL IVP SCH ×2 (14:25→20:03)
[2020-09-05] MEDS: PANTOPRAZOLE 40 MG/10 ML VIAL IVP SCH (14:26)
[2020-09-05] MEDS: methylPREDNISolone SOD SUCCI 125 MG/2 ML VIAL IV SCH ×3 (14:26→23:43)
[2020-09-05] MEDS: IOPAMIDOL CONTRAST (ORAL USE) VIAL PO PRN ×2 (14:28→15:33)
[2020-09-05] MEDS: SODIUM CHLORIDE 0.9% 1,000 ML IV SCH (14:29)
[2020-09-05 14:41] LABS: Basophils % (A) 0 %; Eosinophils # (A) 0.4 k/uL (0-0.7); Eosinophils % (A) 7 %; HCT 43.7 % (39.0-53.0); Lymphocytes # (A) 0.8 k/uL (1.0-4.8); Lymphocytes % (A) 14 %; MCH 29.3 pg (25.0-35.0); MCHC 32.4 g/dL (31.0-37.0); MCV 90.3 fL (80.0-100.0); Mean Platelet Volume 7.2; Monocytes # (A) 0.3 k/uL (0-1.0); Monocytes % (A) 5 %; Neutrophils # (A) 4.5 k/uL (1.3-7.7); Neutrophils % (A) 72 %; Platelet Count 195 k/uL (150-450); RBC 4.84 m/uL (4.30-5.90); RDW 14.9 % (11.5-15.5); WBC 6.2 k/uL (3.8-10.6)
[2020-09-05 14:46] LABS: HGB 14.2 gm/dL (13.0-17.5)
[2020-09-05 14:52] LABS: INR 1.1 (<1.2); Prothrombin Time 11.6 sec (9.0-12.0)
[2020-09-05 14:54] LABS: ALT 24 U/L (4-49); AST 26 U/L (17-59); African American GFR (CKD) >90 (>60 ml/min/1.73 sqM); Albumin 3.4 g/dL (3.5-5.0); Albumin/Globulin Ratio 1.3; Alkaline Phosphatase 123 U/L (38-126); Anion Gap 3 mmol/L; Blood Urea Nitrogen 13 mg/dL (9-20); Calcium 8.8 mg/dL (8.4-10.2); Carbon Dioxide 36 mmol/L (22-30); Chloride 99 mmol/L (98-107); Globulin 2.7 g/dL; Glucose 113 mg/dL (74-99); Magnesium 1.8 mg/dL (1.6-2.3); Non-African American GFR(CKD) >90 (>60 ml/min/1.73 sqM); Sodium 138 mmol/L (137-145); Total Bilirubin 0.8 mg/dL (0.2-1.3); Total Protein 6.1 g/dL (6.3-8.2)
[2020-09-05 15:24] LABS: Erythrocyte Sedimentation Rate 50 mm/hr (0-15)
[2020-09-05] MEDS: PIPERACILLIN-TAZOBACTAM 3.375 GM in SODIUM CHLORIDE 0.9% 100 ML IVPB SCH ×2 (15:34→23:43)
--- NOTE | 2020-09-05 15:42 | HP ---
HISTORY AND PHYSICAL DATE OF SERVICE: 09/05/2020 CHIEF COMPLAINTS: Severe back pain, intractable back pain, failure of outpatient treatment. HISTORY OF PRESENT ILLNESS: This 80-year-old gentleman with a past medical history of multiple medical problems such as history of atrial fibrillation, history of CAD, history of CHF, history of myocardial infarction, history of kyphoplasty, T10, with biopsy recently, history of CAD, stent, being followed by Dr. Rodirguez in the outpatient setting, was recently admitted with severe back pain. The biopsy was done as an outpatient because of suspicion of osteomyelitis versus malignancy. The biopsy report came back positive, as consistent with metastatic poorly differentiated srk-yemre-butg carcinoma. The patient went home and because of severe pain, 10/10 pain in the back, the SYSTEMS TESTER from Dr. Rodriguez's office called me over the phone and discussed the case and the patient was directly admitted to [facility] for further evaluation and treatment. The patient apparently was also evaluated in the ER for abdominal pain and constipation a couple of days ago which showed some evidence of colitis on the left side, and the patient was started on p.o. Augmentin at this time. There is no history of any fever, rigor or chills. No history of headache, loss of consciousness, seizures. There is there is no history of fever, rigors. No headache loss of seizures. PAST MEDICAL HISTORY: History of atrial fibrillation, history of CAD, CHF, hypertension, history of myocardial infarction, history of DJD, history of back surgery, CAD stent. HOME MEDICATIONS: Flexeril, lactulose, Percocet, oxycodone, Coreg, Flomax, Aldactone, multivitamins, Lasix, aspirin, Eliquis, Augmentin. ALLERGIES: VICODIN and STATINS. FAMILY HISTORY: History of cancers in 3 brothers. SOCIAL HISTORY: Previous history of smoking. No current smoking or alcohol intake. REVIEW OF SYSTEMS: ENT: No diminished hearing. No diminished vision. CARDIOVASCULAR SYSTEM: No angina, palpitations. RESPIRATORY SYSTEM: As mentioned earlier. GI: As mentioned earlier. : No dysuria or retention. NERVOUS SYSTEM: As mentioned earlier. ALLERGY/IMMUNOLOGY: No asthma, hayfever. MUSCULOSKELETAL: As mentioned earlier. HEMATOLOGY/ONCOLOGY: As mentioned earlier. ENDOCRINE: No history of diabetes, hypothyroidism. CONSTITUTIONAL: As mentioned earlier. DERMATOLOGY: Negative. RHEUMATOLOGY: Negative. PSYCHIATRY: As mentioned earlier. PHYSICAL EXAMINATION: Patient alert and oriented x3. Pulse 86, blood pressure 138/91, respiration 17, temperature 97.7, pulse ox 93% on room air. HEENT: Conjunctivae normal. NECK: No jugular venous distention. CARDIOVASCULAR SYSTEM: S1, S2 muffled. RESPIRATORY SYSTEM: Breath sounds diminished at the bases. No rhonchi. No crackles. ABDOMEN: Soft, obese. Minimal diffuse tenderness in the right side of the abdomen. No guarding. No rigidity. No mass palpable. LEGS: No edema. No swelling. NERVOUS SYSTEM: Higher functions as mentioned earlier. Moves all 4 limbs. No focal motor or sensory deficit. LYMPHATICS: No lymph node palpable in neck, axillae or groin. SKIN: No ulcer, rash, bleeding. JOINTS: No active deforming arthropathy. Minimal movements in the bed is evoking severe pain in the upper back area without much radiation. Dpjwwzbw-gve-uajrmda test is negative. LABS: CBC within normal limits. ASSESSMENT: 1. Severe intractable back pain from possibly metastatic lung cancer with failure of outpatient treatment. 2. Metastatic poorly differentiated apo-vehgb-eoxg carcinoma from the biopsy report. 3. History of kyphoplasty T10. 4. History of atrial fibrillation. 5. History of coronary artery disease. 6. History of congestive heart failure, ejection fraction unknown. 7. Hypertension. 8. History of myocardial infarction. 9. History of degenerative joint disease. 10.History of prostate disorder. 11.History of recent colitis. 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 13.History of bilateral lung nodules. 14.Bilateral lung restrictive disease. 15.History of methicillin-resistant Staphylococcus aeruginosa. 16.History of coronary artery disease, stent. 17.History of permanent pacemaker. 18.Obesity with body mass index of 40.7. RECOMMENDATION AND DISCUSSION: In this 80-year-old gentleman who presented with multiple complex medical issues, we will monitor the patient closely. We will treat the patient symptomatically with IV pain medications, empiric steroids. Will also obtain hematology/oncology and radiation oncology evaluations. The patient also a history of recent diagnosis of colitis. I would also recommend IV antibiotics and also obtain a CT scan of the chest, abdomen and pelvis. The prognosis is guarded because of multiple complex medical issues. Further recommendations to follow. A copy of this dictation is being forwarded to Dr. Rodriguez, who is the primary physician. MMODL / IJN: [id number] /
--- NOTE | 2020-09-05 16:15 | CT ---
EXAMINATION TYPE: CT ChestAbdPelvis wo con DATE OF EXAM: 09/05/2020 INDICATION: Abdominal pain and back pain. COMPARISON: 09/03/2020 CT DLP: 1972.2 mGycm CONTRAST: Performed with Oral Contrast and without IV contrast. The Patient injected with 0 mL of Isovue 300. TECHNIQUE: Axial images at 5 mm thick sections. Reconstructed images in the coronal plane. Delayed images through the kidneys. FINDINGS: CT CHEST: Portion of the thyroid visualized is normal. There are several round smooth bordered nodules scattered throughout the bilateral lungs. Largest nod ules are in the left lower lateral lung base measuring 2.1 cm. Series 4 image 32 and in the superior lateral right lung measuring 2.2 cm. Series 4 image 25. Additional smaller nodules are present bilate rally. There is consolidation in the medial to anterior left upper lung field. No enlarged mediastinal or hilar adenopathy is evident. Several small mediastinal lymph nodes are pre sent. The ascending aorta diameter at the level of the main pulmonary artery is 4.2 cm. The main pulmonary artery diameter at the bifurcation is 3.[address] ABDOMEN: Liver: There is an oval hypodensity with ill-defined borders measuring 1.9 x 3.7 cm superior right lo be liver. Spleen: Normal Pancreas: Somewhat atrophic Adrenal glands: The adrenal glands are normal. Gallbladder: Normal Kidneys: No masses are evident. No hydronephrosis is present. No cysts are present. There is a 1.0 cm calcification without obstruction the mid left kidney. Vascular renal calcifications noted bilate rally. Aorta: Vascular calcification is within the aorta. Inferior vena cava: Normal. CT PELVIS: Loops of bowel within the abdomen and pelvis are normal. There are loops of bowel which are incom pletely distended or lack oral contrast limiting their evaluation. Appendix: Normal as visualized. Urinary bladder: Normal. Genitourinary structures: Prostate is normal Osseous structures: No suspicious lytic or sclerotic lesions. Facet degenerative changes are within t he lower lumbar spine. IMPRESSIONS: 1. Suspected cyst right lobe liver. This can be followed appropriate. 2. Extensive bilateral pulmonary nodules
[2020-09-05 17:25] LABS: Glucose,Whole Blood 201 mg/dL (75-99)
[2020-09-05] MEDS: INSULIN ASPART (NovoLOG) 100 UNIT/ML VIAL SQ SCH ×2 (17:51→20:09)
[2020-09-05] MEDS: carvediloL 3.125 MG TAB PO SCH (17:52)
[2020-09-05] MEDS: ALPRAZolam 0.25 MG TAB PO PRN (17:52)
[2020-09-05] MEDS: APIXABAN 5 MG TAB PO SCH (20:03)
[2020-09-05 20:07] LABS: Glucose,Whole Blood 180 mg/dL (75-99)
[2020-09-05] MEDS ORDERED: AMOXIC-POT CLAV 875-125MG 1 EACH TAB PO SCH (21:00)
[2020-09-06] MEDS: KETOROLAC 15 MG/ML 1 ML VIAL IVP SCH ×4 (01:44→20:07)
[2020-09-06] MEDS: CYCLOBENZAPRINE 10 MG TAB PO PRN (03:33)
[2020-09-06 03:55] LABS: Amorphous Sediment,Urine Rare /hpf; Appearance,Urine Clear (Clear); Bacteria,Urine Rare /hpf; Bilirubin,Urine Negative (Negative); Blood,Urine Negative (Negative); Color,Urine Yellow; Glucose,Urine (UA) Negative (Negative); Hyaline Casts,Urine 1 /lpf (0-2); Ketones,Urine Negative (Negative); Leukocyte Esterase,Urine Trace (Negative); Mucus,Urine Rare /hpf; Nitrite,Urine Negative (Negative); PH, Urine 7.5 (5.0-8.0); Protein,Urine 1+ (Negative); RBC,Urine 6 /hpf (0-5); Specific Gravity,Urine 1.025 (1.001-1.035); Squamous Epithelial Cell,Urine 1 /hpf (0-4); WBC,Urine 1 /hpf (0-5)
[2020-09-06] MEDS: methylPREDNISolone SOD SUCCI 125 MG/2 ML VIAL IV SCH ×4 (05:34→23:48)
[2020-09-06] MEDS: oxyCODONE-APAP 10-325MG 1 EACH TAB PO PRN (05:37)
[2020-09-06 07:28] LABS: Glucose,Whole Blood 185 mg/dL (75-99)
[2020-09-06] MEDS: MULTIVITAMINS, THERA 1 EACH TAB PO SCH (08:29)
[2020-09-06] MEDS: TAMSULOSIN 0.4 MG CAP.ER.24H PO SCH (08:29)
[2020-09-06] MEDS: carvediloL 3.125 MG TAB PO SCH ×2 (08:29→17:48)
[2020-09-06] MEDS: FUROSEMIDE 20 MG TAB PO SCH (08:29)
[2020-09-06] MEDS: SPIRONOLACTONE 25 MG TAB PO SCH (08:29)
[2020-09-06] MEDS: PANTOPRAZOLE 40 MG/10 ML VIAL IVP SCH (08:30)
[2020-09-06] MEDS: APIXABAN 5 MG TAB PO SCH ×2 (08:30→20:09)
[2020-09-06] MEDS: INSULIN ASPART (NovoLOG) 100 UNIT/ML VIAL SQ SCH ×4 (08:30→20:22)
[2020-09-06] MEDS: PIPERACILLIN-TAZOBACTAM 3.375 GM in SODIUM CHLORIDE 0.9% 100 ML IVPB SCH ×3 (08:38→23:48)
[2020-09-06 09:12] LABS: Basophils % (A) 0 %; Eosinophils % (A) 0 %; HCT 47.6 % (39.0-53.0); HGB 15.8 gm/dL (13.0-17.5); Lymphocytes # (A) 0.5 k/uL (1.0-4.8); Lymphocytes % (A) 8 %; MCH 30.3 pg (25.0-35.0); MCHC 33.3 g/dL (31.0-37.0); MCV 91.1 fL (80.0-100.0); Mean Platelet Volume 7.4; Monocytes # (A) 0.1 k/uL (0-1.0); Monocytes % (A) 1 %; Neutrophils # (A) 5.8 k/uL (1.3-7.7); Neutrophils % (A) 91 %; Platelet Count 231 k/uL (150-450); RBC 5.22 m/uL (4.30-5.90); RDW 14.8 % (11.5-15.5); WBC 6.4 k/uL (3.8-10.6)
[2020-09-06 09:13] LABS: African American GFR (CKD) >90 (>60 ml/min/1.73 sqM); Anion Gap 6 mmol/L; Blood Urea Nitrogen 15 mg/dL (9-20); Carbon Dioxide 32 mmol/L (22-30); Chloride 100 mmol/L (98-107); Glucose 158 mg/dL (74-99); Non-African American GFR(CKD) >90 (>60 ml/min/1.73 sqM); Potassium 4.3 mmol/L (3.5-5.1); Sodium 138 mmol/L (137-145)
[2020-09-06 11:25] VITALS: BMI 40.7
--- NOTE | 2020-09-06 11:36 | XR ---
EXAMINATION TYPE: XR chest 1V portable DATE OF EXAM: 09/06/2020 CLINICAL HISTORY: Difficulty breathing progress study. Lung cancer with intractable pain. TECHNIQUE: Single AP portable frontal view of the chest is obtained. COMPARISON: CT from one day earlier and older studies. FINDINGS: Persistent cardiomegaly with dual lead pacemaker. Scattered pulmonary nodules consistent w ith metastatic disease again seen. Stable left upper lung opacity could reflect scarring and/or treat ed neoplasm. Vertebroplasty through lower thoracic vertebra compression fracture less well seen on pl ain films. IMPRESSION: As above. No significant change from one day earlier.
--- NOTE | 2020-09-06 11:54 | P.CONS ---
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 The patient is medically inoperable due to significant cardiac disease and requires home oxygen. He underwent SBRT finishing on 10/12/2019. Unfortunately, he presented with progressive pain in the mid-back. Recent kyphoplasty with biopsy revealed metastatic disease involving T10. Back in June, the patient underwent a PET/CT which revealed no evidence of recurrent disease. Unfortunately, approximately 5-6 weeks ago he began complaining of mid back pain. This was greater on the left than the right, and progressively worsened over time. He was hospitalized in mid August, and a CT scan of the thoracic and lumbar spine on August 23 revealed air within the vertebral body and mild height loss. He was evaluated by orthopedic surgery. He underwent a bone scan on August 29 which did show focal abnormal uptake from T10 to T12 worrisome for metastatic disease. He subsequently underwent a kyphoplasty of T10 with biopsy on August 30. This revealed poorly differentiated non-small cell lung cancer, similar to the patient's initial biopsy 1 year prior. At the current time, the patient reports severe pain with movement. He is most comfortable when lying flat. He states this is much worse when he has to move or twist his body or get up from a seated position. He denies numbness or tingling of the extremities. He has not had any loss of bladder bowel continence. He has however struggled with constipation which he attributes to taking Percocets at home. He states he is still been able to ambulate with the use of a walker, but it is pretty uncomfortable for him to get up from a seated position to ambulate. He has tried several different pain medications at home and has not been able to control the pain adequately. Review of Systems Constitutional: Denies chills, Denies fever Eyes: denies blurred vision Ears, nose, mouth and throat: Denies headache Cardiovascular: Denies chest pain Respiratory: Reports dyspnea, Denies cough Gastrointestinal: Reports constipation Genitourinary: Denies dysuria Musculoskeletal: Reports low back pain Neurological: Denies ataxia, Denies confusion Past Medical History Past Medical History: Atrial Fibrillation, Coronary Artery Disease (CAD), Ca ncer, Heart Failure, Hypertension, Myocardial Infarction (DE), Osteoarthritis (OA), Prostate Disorder, Respiratory Disorder Additional Past Medical History / Comment(s): Pt recently admtiited to [facility] on 08/22/20 with intractable low back pain with kyphoplasty T10 with biopsy (pt has not been given results/abnormal cat scan and pt told possible mets to bone. Pt recently in [facility] ER on 09/03/20 with constipation/colitis. 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 Last Myocardial Infarction Date:: mar 2018 History of Any Multi-Drug Resistant Organisms: None Reported Past Surgical History: Back Surgery, Heart Catheterization With Stent, Joint Replacement, Orthopedic Surgery, Pacemaker Additional Past Surgical History / Comment(s): 08/2019 kyphoplasty/bx T10, 09/2019 bronch with bx/brushings/BAL, 2017 pacemaker, bilateral knee arthroscopies, bila teral total knee replacements, R knee surgery for patellar tendon tear, PCI with stents, colonoscopy, bilateral cataract removals. Past Anesthesia/Blood Transfusion Reactions: Motion Sickness Date of Last Stent Placement:: 03/23 Type of Cardiac Device: Permanent Pacemaker Device Placement Date:: 02/20 Smoking Status: Former smoker - Past Family History Sister(s) Family Medical History: Cancer Brother(s) Family Medical History: Cancer Additional Family Medical History / Comment(s): 3 brothers cancer Father Family Medical History: Coronary Artery Disease (CAD), CVA/TIA, Myocardial Infarction (DE) Additional Family Medical History / Comment(s): Father had TIAs and MIs. He between the ages of 62-68yrs from what pt believes was a DE Mother Family Medical History: Myocardial Infarction (DE) Additional Family Medical History / Comment(s): Mother of a DE at the age of 88yrs. Medications and Allergies Home Medications Medication Instructions Recorded Confirmed Type Aspirin 81 mg PO Q48H 11/27/16 09/05/20 History Multivitamins, Thera [Multivitamin 1 tab PO DAILY 11/27/16 09/05/20 History (formulary)] Furosemide [Lasix] 20 mg PO DAILY 02/19/18 09/05/20 History Tamsulosin [Flomax] 0.4 mg PO DAILY 02/19/18 09/05/20 History Spironolactone 25 mg PO DAILY 09/08/19 09/05/20 History Apixaban [Eliquis] 5 mg PO BID 08/22/20 09/05/20 History Cyclobenzaprine [Flexeril] 10 mg PO BID PRN 08/22/20 09/05/20 History carvediloL [Coreg] 3.125 mg PO BID 08/22/20 09/05/20 History Amoxic-Pot Clav 875-125Mg 1 tab PO Q12HR 7 Days #14 tab 09/03/20 09/05/20 Rx [Augmentin 875-125] oxyCODONE-APAP 7.5-325MG [Percocet 1.5 tab PO ONCE PRN 09/03/20 09/05/20 History 7.5-325 mg] Lactulose [Constulose] 10 gm PO DAILY PRN 09/05/20 09/05/20 History oxyCODONE-APAP 10-325MG [Percocet 1 tab PO Q6H PRN 09/05/20 09/05/20 History 10-325 mg] Allergies Allergy/AdvReac Type Severity Reaction Status Date / Time hydrocodone [From Vicodin] Allergy Hallucinati Verified 09/05/20 13:09 ons Ezukhoj-Yxu-Ihd Reductase AdvReac MUSCLE PAIN Verified 09/05/20 13:09 Inhibitor Physical Exam Vitals: Vital Signs Temp Pulse Resp BP Pulse Ox 09/06/20 08:00 79 18 09/06/20 04:16 97.7 F 79 18 152/81 93 L 09/05/20 21:00 97.4 F L 80 18 147/73 91 L 09/05/20 20:05 18 09/05/20 13:33 93 L 09/05/20 12:44 97.7 F 86 17 138/91 93 L Intake and Output 09/05/20 09/06/20 09/06/20 22:59 06:59 14:59 Intake Total 800 Balance 800 Intake: Intake, IV Titration 300 Amount Piperacillin-Tazobactam 3 100 .375 gm In Sodium Chloride 0.9% 100 ml @ 25 mls/hr IVPB Q8HR FITO Rx# :[id number] Sodium Chloride 0.9% 1, 200 000 ml @ 20 mls/hr IV . Q24H FITO Rx#:[id number] Oral 500 Other: Voiding Method Urinal Urinal # Voids 0 1 1 Weight 132.4 kg - Constitutional General appearance: mild distress - EENT Eyes: EOMI, PERRLA ENT: hearing grossly normal - Neck Neck: no lymphadenopathy - Respiratory Respiratory: bilateral: CTA - Cardiovascular Rhythm: regular - Gastrointestinal General gastrointestinal: no distended, no tenderness - Integumentary Integumentary: no calor, no cellulitis - Neurologic Neurologic: CNII-XII intact - Musculoskeletal Musculoskeletal: strength equal bilaterally - Psychiatric Psychiatric: A&O x's 3, appropriate affect Results CBC & Chem 7: 09/06/20 07:03 09/06/20 07:03 Labs: Abnormal Lab Results - Last 24 Hours (Table) 09/05/20 09/05/20 09/05/20 Range/Units 14:27 14:27 17:24 Lymphocytes # 0.8 L (1.0-4.8) k/uL ESR 50 H (0-15) mm/hr Carbon Dioxide 36 H (22-30) mmol/L Glucose 113 H (74-99) mg/dL POC Glucose (mg/dL) 201 H (75-99) mg/dL Total Protein 6.1 L (6.3-8.2) g/dL Albumin 3.4 L (3.5-5.0) g/dL Urine Protein (Negative) Ur Leukocyte Esterase (Negative) Urine RBC (0-5) /hpf Amorphous Sediment (None) /hpf Urine Bacteria (None) /hpf Urine Mucus (None) /hpf 09/05/20 09/06/20 09/06/20 Range/Units 20:05 03:30 07:03 Lymphocytes # 0.5 L (1.0-4.8) k/uL ESR (0-15) mm/hr Carbon Dioxide (22-30) mmol/L Glucose (74-99) mg/dL POC Glucose (mg/dL) 180 H (75-99) mg/dL Total Protein (6.3-8.2) g/dL Albumin (3.5-5.0) g/dL Urine Protein 1+ H (Negative) Ur Leukocyte Esterase Trace H (Negative) Urine RBC 6 H (0-5) /hpf Amorphous Sediment Rare H (None) /hpf Urine Bacteria Rare H (None) /hpf Urine Mucus Rare H (None) /hpf 09/06/20 09/06/20 Range/Units 07:03 07:26 Lymphocytes # (1.0-4.8) k/uL ESR (0-15) mm/hr Carbon Dioxide 32 H (22-30) mmol/L Glucose 158 H (74-99) mg/dL POC Glucose (mg/dL) 185 H (75-99) mg/dL Total Protein (6.3-8.2) g/dL Albumin (3.5-5.0) g/dL Urine Protein (Negative) Ur Leukocyte Esterase (Negative) Urine RBC (0-5) /hpf Amorphous Sediment (None) /hpf Urine Bacteria (None) /hpf Urine Mucus (None) /hpf CT scan - abdomen: report reviewed, image reviewed CT scan - chest: report reviewed, image reviewed CT scan - pelvis: report reviewed, image reviewed Assessment and Plan Assessment: The patient is a 80-year-old male with a history of a recently diagnosed Stage IIA (cT2b, cN0, 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 The patient is medically inoperable due to significant cardiac disease and requires home oxygen. He underwent SBRT finishing on 10/12/2019. Unfortunately, he presented with progressive pain in the mid-back. Recent kyphoplasty with biopsy revealed metastatic disease involving T10. Plan: As detailed above, the patient now unfortunately presents with evidence of metastatic disease resulting in significant mid back pain. The patient underwent a CT scan of the chest, abdomen and pelvis which did not reveal any other clear evidence of disease. Based on his bone scan, the disease appears to involve the thoracic spine from T10 to T12. He has had continued pain despite recent kyphoplasty and medication increases. I discussed with the patient that I recommend a course of palliative radiotherapy. I explained that this may help to improve his pain, although typical improvement may require several days to even 1-2 weeks. I discussed with the patient I would have him first undergo CT simulation for treatment planning. We would aim to start his radiotherapy urgently. He has no evidence of radiographic or clinical spinal cord compression, but secondary to his pacemaker and MRI is not feasible. I discussed with the patient that possible side effects of this treatment include, but are not limited to; fatigue, mild skin irritation, nausea, esophagitis and low risk of late effects. I would also recommend a CT brain w/ contrast considering he now has evidence of metastatic disease. Time with Patient: Greater than 30
[2020-09-06] MEDS ORDERED: LACTULOSE 20 GM/30 ML CUP PO PRN (12:08)
[2020-09-06 12:51] LABS: Glucose,Whole Blood 209 mg/dL (75-99)
[2020-09-06] MEDS: SODIUM CHLORIDE 0.9% 1,000 ML IV SCH (14:06)
[2020-09-06] MEDS: SENNOSIDES 8.6 MG TAB PO SCH ×2 (14:10→20:09)
--- NOTE | 2020-09-06 15:32 | CDI ---
Documentation Clarification Form Date: 09/06/2020 03:09:21 PM From: Jacquie Gan RN CCDS Admit Date: 09/05/2020 12:23:00 PM Patient Name: De Prieto Visit Number: [id number] Discharge Date: ATTENTION: The Clinical Documentation Specialists (CDI) and [facility] Coding Staff appreciate your assistance in clarifying documentation. Please respond to the clarification below the line at the bottom and electronically sign. The CDI & [facility] Coding staff will review the response and follow-up if needed. Please note: Queries are made part of the Legal Health Record. If you have any questions, please contact the author of this message via ITS. Dr. Shannon Nichols History of congestive heart failure, ejection fraction unknown. Documented in the H&P 09/05. History/Risk Factors: 80-year-old male presents to the ED with intractable back pain, failure of outpatient treatment. Medical History: Severe intractable back pain from metastatic lung cancer. Metastatic poorly differentiated uls-ucrps-xjxa carcinoma from the biopsy report. Documented in H&P 09/05. Clinical Indicators: VS/Pulse OX 09/05: B/P 138/91; HR 86; Temp 97.7 F Oral; RR 17; SpO2 93% Room air. Echocardiogram Results 08/2017: Moderate concentric left ventricular hypertrophy. Mild global hypokinesis of LV. Left ventricular systolic function is mild moderately impaired with an EF 40-45%. Mild aortic valve sclerosis, trace to mild mitral regurgitation. Mild tricuspid regurgitation. Chest X Ray 09/06: Persistent cardiomegaly with dual lead pacemaker. Scattered pulmonary nodules consistent with metastatic disease again seen. Stable left upper lung opacity could reflect scarring and/or treated neoplasm. Treatment: 09/05 Coreg 3.125mg PO BID w/meals; 3/4 Lasix 20mg PO Daily; 3/4 Aldactone 25mg PO Daily. In your professional opinion, can you please clarify the acuity and type of CHF if known? Chronic Systolic Heart Failure Unable to Determine Other, please specify (Last Revision: October 2017) Chronic Systolic Heart Failure MTDD
[2020-09-06 17:10] LABS: Glucose,Whole Blood 227 mg/dL (75-99)
--- NOTE | 2020-09-06 17:40 | PN ---
PROGRESS NOTE DATE OF SERVICE: 09/06/2020 This 80-year-old gentleman who was admitted with severe back pain has metastatic non- small cell malignancy. The patient was started on multiple pain medications with some relief at this time. The Radiation/Oncology, Dr. Melara has also seen the patient and recommended CT simulation planning for radiation. Otherwise, the patient also had a recently diagnosed squamous cell carcinoma of the left upper lung. The patient has multiple nodules in the lung, also multiple consultants following the patient closely. Past medical history reviewed. REVIEW OF SYSTEMS: CARDIOVASCULAR system: As mentioned earlier. GI: As mentioned earlier. : No dysuria. MUSCULOSKELETAL: As mentioned earlier. HEMATOLOGY/ONCOLOGY: As mentioned earlier. CURRENT MEDICATIONS: Reviewed and include: Xanax, Eliquis, aspirin, Coreg, Flexeril, NovoLog, Toradol, Solu- Medrol, Narcan, Protonix, Zosyn. Doses reviewed. PHYSICAL EXAM: Patient is alert, oriented x3. Pulse 70. Blood pressure 121/76, respirations 16, temperature 97.6, pulse ox 98% on room air. HEENT: Conjunctivae normal. NECK: No JVD. CARDIOVASCULAR: S1, S2 muffled. RESPIRATORY SYSTEM: Breath sounds diminished at the bases. A few scattered rhonchi. ABDOMEN: Soft, obese, nontender. LEGS are no edema. No swelling. NERVOUS SYSTEM: No focal deficits. LABS: WBC 6.7, Hemoglobin 15.8, glucose 158. UA noted. ASSESSMENT: 1. Severe intractable back pain secondary from metastatic lung cancer with failure of outpatient treatment. 2. 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 3. Multiple lung METS. 4. History of recent kyphoplasty, T10. 5. History of atrial fibrillation. 6. History of coronary artery disease. 7. History of congestive heart failure with chronic systolic dysfunction, ejection fraction 40-45 percent. 8. Hypertension. 9. History of myocardial infarction. 10.History of degenerative joint disease. 11.History of prostate disorder. 12.History of recent colitis. 13.History of bilateral necrotizing granulomas of the lungs. 14.History of bilateral lung nodules. 15.Bilateral lung restrictive disease. 16.History of MRSA. 17.History of coronary artery disease/stent. 18.History of permanent pacemaker. 19.Obesity with body mass index of 40.7. RECOMMENDATIONS AND DISCUSSION: I recommend to continue current medications and symptomatic treatment. Otherwise, continue with steroids. Continue the empiric antibiotics. Monitor blood sugars closely. Radiation treatment per Radiation Oncology. I would also recommend pulmonary evaluation. Prognosis guarded. Further recommendations to follow. MMODL / IJN: [id number] /
[2020-09-06 20:25] LABS: Glucose,Whole Blood 177 mg/dL (75-99)
--- NOTE | 2020-09-06 21:57 | P.CONS ---
History of Present Illness - Reason for Consult Consult date: 09/06/20 Cancer Pain Requesting physician: Shannon Nichols - History of Present Illness Mr. 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 The patient is medically inoperable due to significant cardiac disease and requires home oxygen. He underwent SBRT finishing on 10/12/2019. Unfortunately, he presented with progressive pain in the mid-back. Recent kyphoplasty with biopsy revealed metastatic disease involving T10. June 2020 PET/CT which revealed no evidence of recurrent disease. Unfortunately, approximately 5-6 weeks ago he began complaining of mid back pain. This was greater on the left than the right, and progressively worsened over time. He was hospitalized in mid August, and a CT scan of the thoracic and lumbar spine on August 23 revealed air within the vertebral body and mild height loss. He was evaluated by orthopedic surgery. He underwent a bone scan on August 29 which did show focal abnormal uptake from T10 to T12 worrisome for metastatic disease. He subsequently underwent a kyphoplasty of T10 with biopsy on August 30. This revealed poorly differentiated non-small cell lung cancer, similar to the patient's initial biopsy 1 year prior. He is now admitted for severe pain, not relieved with home medications and best if not moving laying flat. Review of Systems All systems: negative Constitutional: Reports as per HPI Past Medical History Past Medical History: Atrial Fibrillation, Coronary Artery Disease (CAD), Cancer, Heart Failure, Hypertension, Myocardial Infarction (NH), Osteoarthritis (OA), Prostate Disorder, Respiratory Disorder Additional Past Medical History / Comment(s): Pt recently admtiited to [facility] on 08/22/20 with intractable low back pain with kyphoplasty T10 with biopsy (pt has not been given results/abnormal cat scan and pt told possible mets to bone. Pt recently in [facility] ER on 09/03/20 with constipation/colitis. 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 Last Myocardial Infarction Date:: mar 2018 History of Any Multi-Drug Resistant Organisms: None Reported Past Surgical History: Back Surgery, Heart Catheterization With Stent, Joint Replacement, Orthopedic Surgery, Pacemaker Additional Past Surgical History / Comment(s): 08/2019 kyphoplasty/bx T10, 09/2019 bronch with bx/brushings/BAL, 2017 pacemaker, bilateral knee arthroscopies, bilateral total knee replacements, R knee surgery for patellar tendon tear, PCI with stents, colonoscopy, bilateral cataract removals. Past Anesthesia/Blood Transfusion Reactions: Motion Sickness Date of Last Stent Placement:: 03/23 Type of Cardiac Device: Permanent Pacemaker Device Placement Date:: 02/20 Smoking Status: Former smoker - Past Family History Sister(s) Family Medical History: Cancer Brother(s) Family Medical History: Cancer Additional Family Medical History / Comment(s): 3 brothers cancer Father Family Medical History: Coronary Artery Disease (CAD), CVA/TIA, Myocardial Infarction (NH) Additional Family Medical History / Comment(s): Father had TIAs and MIs. He between the ages of 62-68yrs from what pt believes was a NH Mother Family Medical History: Myocardial Infarction (NH) Additional Family Medical History / Comment(s): Mother of a NH at the age of 88yrs. Medications and Allergies Home Medications Medication Instructions Recorded Confirmed Type Aspirin 81 mg PO Q48H 11/27/16 09/05/20 History Multivitamins, Thera [Multivitamin 1 tab PO DAILY 11/27/16 09/05/20 History (formulary)] Furosemide [Lasix] 20 mg PO DAILY 02/19/18 09/05/20 History Tamsulosin [Flomax] 0.4 mg PO DAILY 02/19/18 09/05/20 History Spironolactone 25 mg PO DAILY 09/08/19 09/05/20 History Apixaban [Eliquis] 5 mg PO BID 08/22/20 09/05/20 History Cyclobenzaprine [Flexeril] 10 mg PO BID PRN 08/22/20 09/05/20 History carvediloL [Coreg] 3.125 mg PO BID 08/22/20 09/05/20 History Amoxic-Pot Clav 875-125Mg 1 tab PO Q12HR 7 Days #14 tab 09/03/20 09/05/20 Rx [Augmentin 875-125] oxyCODONE-APAP 7.5-325MG [Percocet 1.5 tab PO ONCE PRN 09/03/20 09/05/20 History 7.5-325 mg] Lactulose [Constulose] 10 gm PO DAILY PRN 09/05/20 09/05/20 History oxyCODONE-APAP 10-325MG [Percocet 1 tab PO Q6H PRN 09/05/20 09/05/20 History 10-325 mg] Allergies Allergy/AdvReac Type Severity Reaction Status Date / Time hydrocodone [From Vicodin] Allergy Hallucinati Verified 09/05/20 13:09 ons Ylhrrmv-Sqo-Lgw Reductase AdvReac MUSCLE PAIN Verified 09/05/20 13:09 Inhibitor Physical Exam Vitals: Vital Signs Temp Pulse Resp BP Pulse Ox 09/06/20 20:00 97.7 F 70 16 147/73 94 L 09/06/20 12:54 97.6 F 70 16 121/76 93 L 09/06/20 08:00 79 18 09/06/20 04:16 97.7 F 79 18 152/81 93 L Intake and Output 09/06/20 09/06/20 09/06/20 06:59 14:59 22:59 Intake Total 754 861 6000 Balance 296 011 8640 Intake: Intake, IV Titration 300 Amount Piperacillin-Tazobactam 3 100 .375 gm In Sodium Chloride 0.9% 100 ml @ 25 mls/hr IVPB Q8HR [facility] Rx# :[id number] Sodium Chloride 0.9% 1, 200 000 ml @ 20 mls/hr IV . Q24H [facility] Rx#:[id number] Oral [phone] Other: Voiding Method Urinal # Voids 1 1 3 Weight 132.4 kg - Constitutional General appearance: cooperative, mild distress - EENT Eyes: EOMI ENT: NA/AT - Neck Neck: normal ROM - Respiratory Respiratory: bilateral: diminished - Cardiovascular Rhythm: regular - Gastrointestinal General gastrointestinal: soft - Integumentary Integumentary: pale - Neurologic Neurologic: CNII-XII intact - Musculoskeletal Musculoskeletal: generalized weakness - Psychiatric Psychiatric: A&O x's 3, appropriate affect, intact judgment & insight Results CBC & Chem 7: 09/07/20 06:20 09/07/20 06:20 Labs: Abnormal Lab Results - Last 24 Hours (Table) 09/06/20 09/06/20 09/06/20 Range/Units 03:30 07:03 07:03 Lymphocytes # 0.5 L (1.0-4.8) k/uL Carbon Dioxide 32 H (22-30) mmol/L Glucose 158 H (74-99) mg/dL POC Glucose (mg/dL) (75-99) mg/dL Urine Protein 1+ H (Negative) Ur Leukocyte Esterase Trace H (Negative) Urine RBC 6 H (0-5) /hpf Amorphous Sediment Rare H (None) /hpf Urine Bacteria Rare H (None) /hpf Urine Mucus Rare H (None) /hpf 09/06/20 09/06/20 09/06/20 Range/Units 07:26 12:43 17:09 Lymphocytes # (1.0-4.8) k/uL Carbon Dioxide (22-30) mmol/L Glucose (74-99) mg/dL POC Glucose (mg/dL) 185 H 209 H 227 H (75-99) mg/dL Urine Protein (Negative) Ur Leukocyte Esterase (Negative) Urine RBC (0-5) /hpf Amorphous Sediment (None) /hpf Urine Bacteria (None) /hpf Urine Mucus (None) /hpf 09/06/20 Range/Units 20:02 Lymphocytes # (1.0-4.8) k/uL Carbon Dioxide (22-30) mmol/L Glucose (74-99) mg/dL POC Glucose (mg/dL) 177 H (75-99) mg/dL Urine Protein (Negative) Ur Leukocyte Esterase (Negative) Urine RBC (0-5) /hpf Amorphous Sediment (None) /hpf Urine Bacteria (None) /hpf Urine Mucus (None) /hpf Chest x-ray: report reviewed CT scan - abdomen: report reviewed CT scan - chest: report reviewed CT scan - pelvis: report reviewed Assessment and Plan (1) Back pain Current Visit: No Status: Acute Code(s): M54.9 - DORSALGIA, UNSPECIFIED SNOMED Code(s): 073446056 (2) Mass of upper lobe of left lung Current Visit: No Status: Acute Code(s): R91.8 - OTHER NONSPECIFIC ABNORMAL FINDING OF LUNG FIELD SNOMED Code(s): 752802662 Plan: Assessment and PLan: Neoplastic related pain: - Dr. Melara following from radiation oncology - Adjust pain medications and add bowel regimen Metastatic recurrent lung cancer. Physician attest: I have completed the full history and physical and agree with above dictation, dictated as a scribe
[2020-09-07] MEDS: KETOROLAC 15 MG/ML 1 ML VIAL IVP SCH ×4 (01:55→20:00)
[2020-09-07] MEDS: oxyCODONE-APAP 10-325MG 1 EACH TAB PO PRN ×2 (04:50→11:30)
[2020-09-07] MEDS: CYCLOBENZAPRINE 10 MG TAB PO PRN ×2 (04:50→11:30)
[2020-09-07] MEDS: methylPREDNISolone SOD SUCCI 125 MG/2 ML VIAL IV SCH ×2 (05:00→11:31)
[2020-09-07 06:57] LABS: African American GFR (CKD) >90 (>60 ml/min/1.73 sqM); Anion Gap 5 mmol/L; Blood Urea Nitrogen 23 mg/dL (9-20); Carbon Dioxide 32 mmol/L (22-30); Chloride 103 mmol/L (98-107); Glucose 175 mg/dL (74-99); Non-African American GFR(CKD) 88 (>60 ml/min/1.73 sqM); Potassium 4.1 mmol/L (3.5-5.1); Sodium 140 mmol/L (137-145)
[2020-09-07 06:58] LABS: Calcium 8.8 mg/dL (8.4-10.2)
[2020-09-07 07:09] LABS: Glucose,Whole Blood 154 mg/dL (75-99)
[2020-09-07] MEDS: APIXABAN 5 MG TAB PO SCH ×2 (08:16→21:50)
[2020-09-07] MEDS: FUROSEMIDE 20 MG TAB PO SCH (08:16)
[2020-09-07] MEDS: TAMSULOSIN 0.4 MG CAP.ER.24H PO SCH (08:16)
[2020-09-07] MEDS: SENNOSIDES 8.6 MG TAB PO SCH ×2 (08:16→21:50)
[2020-09-07] MEDS: ASPIRIN 81 MG PO SCH (08:16)
[2020-09-07] MEDS: SPIRONOLACTONE 25 MG TAB PO SCH (08:16)
[2020-09-07] MEDS: MULTIVITAMINS, THERA 1 EACH TAB PO SCH (08:16)
[2020-09-07] MEDS: carvediloL 3.125 MG TAB PO SCH ×2 (08:17→18:03)
[2020-09-07] MEDS: PANTOPRAZOLE 40 MG TABLET PO SCH (08:17)
[2020-09-07] MEDS: INSULIN ASPART (NovoLOG) 100 UNIT/ML VIAL SQ SCH ×4 (08:18→21:51)
[2020-09-07 08:57] LABS: Basophils # (A) 0.01 X 10*3/uL (0.00-0.10); Basophils % (A) 0.1 %; Eosinophils # (A) 0 X 10*3/uL (0.04-0.35); Eosinophils % (A) 0 %; HCT 43.7 % (39.6-50.0); HGB 14.7 g/dL (13.0-17.0); Lymphocytes # (A) 0.36 X 10*3/uL (0.90-5.00); Lymphocytes % (A) 2.9 %; MCH 30.2 pg (27.0-32.0); MCHC 33.6 g/dL (32.0-37.0); MCV 89.9 fL (80.0-97.0); Mean Platelet Volume 9.9 fL (9.5-12.2); Monocytes # (A) 0.34 X 10*3/uL (0.20-1.00); Monocytes % (A) 2.7 %; Neutrophils # (A) 11.66 X 10*3/uL (1.80-7.70); Neutrophils % (A) 93.5 %; Platelet Count 263 X 10*3/uL (140-440); RBC 4.86 X 10*6/uL (4.40-5.60); RDW 14.4 % (11.5-14.5); WBC 12.47 X 10*3/uL (4.50-10.00)
[2020-09-07] MEDS: PIPERACILLIN-TAZOBACTAM 3.375 GM in SODIUM CHLORIDE 0.9% 100 ML IVPB SCH ×3 (09:02→23:45)
--- NOTE | 2020-09-07 13:08 | P.PN ---
Subjective Progress Note Date: 09/07/20 Principal diagnosis: cancer related pain Status post first radiation treatment, tolerated well. Pain is worse with movement or twisting. at bedside. Objective - Vital Signs Vital signs: Vital Signs Temp 97.5 F L 09/07/20 04:15 Pulse 78 09/07/20 08:00 Resp 16 09/07/20 08:00 BP 181/114 09/07/20 08:10 Pulse Ox 93 L 09/07/20 04:15 Intake & Output 09/06/20 09/07/20 09/07/20 18:59 06:59 18:59 Intake Total 1380 800 Output Total 700 700 Balance 1380 100 -700 Weight 132.4 kg Intake: Intake, IV Titration 300 Amount Piperacillin-Tazobactam 3 100 .375 gm In Sodium Chloride 0.9% 100 ml @ 25 mls/hr IVPB Q8HR [facility] Rx# :[id number] Sodium Chloride 0.9% 1, 200 000 ml @ 20 mls/hr IV . Q24H [facility] Rx#:[id number] Oral 1380 500 Output: Urine 700 700 Other: Voiding Method Urinal Urinal Urinal # Voids 3 3 - Exam - Constitutional General appearance: cooperative, mild distress - EENT Eyes: EOMI ENT: NA/AT - Neck Neck: normal ROM - Respiratory Respiratory: bilateral: diminished - Cardiovascular Rhythm: regular - Gastrointestinal General gastrointestinal: soft - Integumentary Integumentary: pale - Neurologic Neurologic: CNII-XII intact - Musculoskeletal Musculoskeletal: generalized weakness - Psychiatric Psychiatric: A&O x's 3, appropriate affect, intact judgment & insight - Labs CBC & Chem 7: 09/07/20 06:20 09/07/20 06:20 Labs: Abnormal Lab Results - Last 24 Hours (Table) 09/06/20 09/06/20 09/07/20 Range/Units 17:09 20:02 06:20 WBC 12.47 H (4.50-10.00) X 10*3/uL Immature Gran # 0.10 H (0.00-0.04) X 10*3/uL Neutrophils # 11.66 H (1.80-7.70) X 10*3/uL Lymphocytes # 0.36 L (0.90-5.00) X 10*3/uL Eosinophils # 0 L (0.04-0.35) X 10*3/uL Carbon Dioxide (22-30) mmol/L BUN (9-20) mg/dL Glucose (74-99) mg/dL POC Glucose (mg/dL) 227 H 177 H (75-99) mg/dL 09/07/20 09/07/20 Range/Units 06:20 07:05 WBC (4.50-10.00) X 10*3/uL Immature Gran # (0.00-0.04) X 10*3/uL Neutrophils # (1.80-7.70) X 10*3/uL Lymphocytes # (0.90-5.00) X 10*3/uL Eosinophils # (0.04-0.35) X 10*3/uL Carbon Dioxide 32 H (22-30) mmol/L BUN 23 H (9-20) mg/dL Glucose 175 H (74-99) mg/dL POC Glucose (mg/dL) 154 H (75-99) mg/dL Assessment and Plan (1) Back pain Current Visit: No Status: Acute Code(s): M54.9 - DORSALGIA, UNSPECIFIED SNOMED Code(s): 745269417 (2) Mass of upper lobe of left lung Current Visit: No Status: Acute Code(s): R91.8 - OTHER NONSPECIFIC ABNORMAL FINDING OF LUNG FIELD SNOMED Code(s): 624479285 Plan: Assessment and PLan: Neoplastic related pain:SPine - Dr. Melara following from radiation oncology - Adjust pain medications and add bowel regimen - Flexeril BID - Oxy er q12 - Dexamethasone 4q8/PPI Metastatic recurrent lung cancer. - FOllow-up with primary oncologist after discharge Physician attest: I have completed the full history and physical and agree with above dictation, dictated as a scribe
[2020-09-07] MEDS: SODIUM CHLORIDE 0.9% 1,000 ML IV SCH (14:41)
--- NOTE | 2020-09-07 16:46 | PN ---
PROGRESS NOTE DATE OF SERVICE: 09/07/2020 This is a 80-year-old gentleman who was admitted with intractable pain, metastatic malignancy, is being closely monitored at this time. The patient is receiving radiation therapy. No chest pain. No palpitations. No fever. PHYSICAL EXAMINATION: GENERAL: Patient is alert and oriented times three. VITAL SIGNS: Pulse 76, blood pressure 158/67, respirations 16, temperature 97.4, pulse ox 94% on room air. HEENT: Conjunctivae normal. Oral mucosa moist. NECK: No jugular venous distention. No carotid bruits. No lymph node enlargement. RESPIRATORY: Breath sounds diminished at the bases. No rhonchi, no crackles. HEART: S1 and S2, muffled. ABDOMEN: Soft, obese. EXTREMITIES: No edema, no swelling. NERVOUS: No focal deficits. LAB STUDIES: WBC 12.7, hemoglobin of 11.6. ASSESSMENT: 1. Severe intractable back pain secondary to metastatic lung cancer with failure of outpatient treatment. 2. Metastatic poorly differentiated non-small cell squamous cell lung carcinoma of the left upper lobe. 3. Multiple METS. 4. History of recent kyphoplasty T10. 5. Increased WBC possibly reactive. 6. History of atrial fibrillation, chronic. 7. History of coronary artery disease. 8. History of congestive heart failure with chronic systolic dysfunction, ejection fraction 40% to 45%. 9. Hypertension. 10.History of myocardial infarction. 11.History of degenerative joint disease. 12.History of prostate disorder. 13.History of recent colitis. 14.History of bilateral necrotizing granulomas of the lungs. 15.History of bilateral lung nodules. 16.Bilateral lung restrictive disease. 17.History of MRSA. 18.History of coronary artery disease and stent. 19.History of permanent pacemaker. 20.Obesity with body mass index of 40.7. RECOMMENDATIONS AND DISCUSSION: Recommend to continue current management and continue symptomatic treatment. Otherwise at this time I would recommend continue the pain medications, steroids, local radiation. Guarded prognosis. Further recommendations to follow. MMODL / IJN: [id number] /
[2020-09-07 17:29] LABS: Glucose,Whole Blood 254 mg/dL (75-99)
[2020-09-07] MEDS: DEXAMETHASONE SOD PHOSPHATE 4 MG/ML 1 ML VIAL IV SCH ×2 (18:03→23:45)
--- NOTE | 2020-09-07 19:11 | CT ---
EXAMINATION TYPE: CT brain wo con DATE OF EXAM: 09/07/2020 COMPARISON: 09/23/2019 HISTORY: Metastatic cancer. CT DLP: 1079.8 mGycm Automated exposure control for dose reduction was used. There is cerebral cortical atrophy. There is no mass effect nor midline shift. There is no sign of in tracranial hemorrhage. The calvarium is intact. Skull base is intact. IMPRESSION: Cerebral atrophy. No acute intracranial abnormality. No change. There is clearing of small mucus retention cyst right maxillary sinus compared to old exam.
[2020-09-07 20:39] LABS: Glucose,Whole Blood 219 mg/dL (75-99)
[2020-09-07] MEDS: CYCLOBENZAPRINE 5 MG TAB PO SCH (21:50)
[2020-09-07] MEDS: oxyCODONE ER 20 MG TAB.ER.12H PO SCH (21:50)
[2020-09-08] MEDS: KETOROLAC 15 MG/ML 1 ML VIAL IVP SCH ×3 (02:01→13:29)
[2020-09-08] MEDS: DEXAMETHASONE SOD PHOSPHATE 4 MG/ML 1 ML VIAL IV SCH ×4 (05:05→23:58)
[2020-09-08 07:04] LABS: Glucose,Whole Blood 144 mg/dL (75-99)
[2020-09-08] MEDS: polyethylene glycoL 3350 17 GM POWD.PACK PO SCH (08:09)
[2020-09-08] MEDS: SENNOSIDES 8.6 MG TAB PO SCH ×2 (08:10→20:44)
[2020-09-08] MEDS: carvediloL 3.125 MG TAB PO SCH ×2 (08:10→17:43)
[2020-09-08] MEDS: APIXABAN 5 MG TAB PO SCH ×2 (08:10→20:44)
[2020-09-08] MEDS: PANTOPRAZOLE 40 MG TABLET PO SCH (08:10)
[2020-09-08] MEDS: MULTIVITAMINS, THERA 1 EACH TAB PO SCH (08:11)
[2020-09-08] MEDS: SPIRONOLACTONE 25 MG TAB PO SCH (08:11)
[2020-09-08] MEDS: oxyCODONE ER 20 MG TAB.ER.12H PO SCH ×2 (08:11→20:43)
[2020-09-08] MEDS: FUROSEMIDE 20 MG TAB PO SCH (08:11)
[2020-09-08] MEDS: INSULIN ASPART (NovoLOG) 100 UNIT/ML VIAL SQ SCH ×4 (08:11→20:44)
[2020-09-08] MEDS: TAMSULOSIN 0.4 MG CAP.ER.24H PO SCH (08:12)
[2020-09-08] MEDS: CYCLOBENZAPRINE 5 MG TAB PO SCH ×2 (08:12→20:44)
[2020-09-08] MEDS: PIPERACILLIN-TAZOBACTAM 3.375 GM in SODIUM CHLORIDE 0.9% 100 ML IVPB SCH ×3 (08:16→23:58)
[2020-09-08 11:34] LABS: African American GFR (CKD) >90 (>60 ml/min/1.73 sqM); Anion Gap 8 mmol/L; Blood Urea Nitrogen 28 mg/dL (9-20); Calcium 8.6 mg/dL (8.4-10.2); Carbon Dioxide 29 mmol/L (22-30); Chloride 102 mmol/L (98-107); Glucose 226 mg/dL (74-99); Non-African American GFR(CKD) >90 (>60 ml/min/1.73 sqM); Potassium 4.4 mmol/L (3.5-5.1); Sodium 139 mmol/L (137-145)
[2020-09-08 11:36] LABS: Glucose,Whole Blood 277 mg/dL (75-99)
[2020-09-08 17:24] LABS: Glucose,Whole Blood 185 mg/dL (75-99)
[2020-09-08 17:25] LABS: Basophils # (A) 0.01 X 10*3/uL (0.00-0.10); Basophils % (A) 0.1 %; Eosinophils # (A) 0 X 10*3/uL (0.04-0.35); Eosinophils % (A) 0 %; HGB 14.6 g/dL (13.0-17.0); Lymphocytes # (A) 0.26 X 10*3/uL (0.90-5.00); Lymphocytes % (A) 2.7 %; MCH 30.2 pg (27.0-32.0); MCHC 33.2 g/dL (32.0-37.0); MCV 90.9 fL (80.0-97.0); Mean Platelet Volume 10.3 fL (9.5-12.2); Monocytes # (A) 0.32 X 10*3/uL (0.20-1.00); Monocytes % (A) 3.3 %; Neutrophils # (A) 9.06 X 10*3/uL (1.80-7.70); Neutrophils % (A) 92.7 %; Platelet Count 267 X 10*3/uL (140-440); RBC 4.84 X 10*6/uL (4.40-5.60); RDW 14.3 % (11.5-14.5); WBC 9.77 X 10*3/uL (4.50-10.00)
--- NOTE | 2020-09-08 17:53 | PN ---
PROGRESS NOTE DATE OF SERVICE: 09/08/2020. This 74-year-old gentleman who was admitted with severe intractable back pain secondary to metastatic lung cancer, is being closely monitored at this time. The patient is started on radiation treatment. The CT scan only showed some atrophy. No chest pain. No palpitations. No fever. EXAM: Alert and oriented times three. Pulse 64. Blood pressure 130/70, respirations 16, temperature 97.4, pulse ox 92% on room air. HEENT: Conjunctivae normal. NECK: No JVD. CARDIOVASCULAR: S1, S2 muffled. RESPIRATION: Breath sounds diminished in the bases. No rhonchi. No crackles. ABDOMEN: Soft. Nontender. NERVOUS SYSTEM: No focal deficits. LABS: Accu-Cheks 226, 277. ASSESSMENT: 1. Severe intractable back pain secondary to metastatic lung cancer with failure of outpatient treatment. 2. Metastatic poorly differentiated dxy-[id number] lung cancer of the left upper lobe. 3. Multiple METS. 4. History of recent kyphoplasty T10. 5. Increased WBC possibly reactive. 6. History of atrial fibrillation chronic. 7. History of coronary artery disease. 8. History of congestive heart failure with chronic systolic dysfunction, ejection fraction 40-45 percent. 9. Hypertension. 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 11.History of myocardial infarction. 12.History of degenerative joint disease. 13.History of prostate disorder. 14.History of colitis. 15.History of bilateral necrotizing granulomas of the lungs history. 16.History of bilateral lung nodules. 17.Bilateral lung restrictive disease. 18.History of MRSA. 19.History of coronary artery disease/ stent. 20.History of permanent pacemaker. 21.Obesity with body mass index of 40.7. RECOMMENDATIONS AND DISCUSSION: Recommend to continue current medications, management and symptomatic treatment. Continue the rest of medication. Taper the steroids. Otherwise, continue the pain medications. PT/OT evaluation. Continue radiation therapy. Further recommendations to follow. Patient is currently on dexamethasone. MMODL / IJN: [id number] / MTDD
[2020-09-08] MEDS: SODIUM CHLORIDE 0.9% 1,000 ML IV SCH (19:34)
[2020-09-08 20:32] LABS: Glucose,Whole Blood 234 mg/dL (75-99)
[2020-09-08] MEDS: INSULIN DETEMIR (LEVEMIR) 100 UNIT/ML SYR SQ SCH (20:45)
[2020-09-09] MEDS: oxyCODONE-APAP 10-325MG 1 EACH TAB PO PRN (04:14)
[2020-09-09] MEDS: DEXAMETHASONE SOD PHOSPHATE 4 MG/ML 1 ML VIAL IV SCH ×2 (05:03→13:03)
[2020-09-09 07:00] LABS: Glucose,Whole Blood 133 mg/dL (75-99)
[2020-09-09] MEDS: LACTULOSE 20 GM/30 ML CUP PO PRN ×2 (08:29→17:30)
[2020-09-09] MEDS: CYCLOBENZAPRINE 5 MG TAB PO SCH ×2 (08:32→21:10)
[2020-09-09] MEDS: PANTOPRAZOLE 40 MG TABLET PO SCH (08:32)
[2020-09-09] MEDS: oxyCODONE ER 20 MG TAB.ER.12H PO SCH ×2 (08:32→21:10)
[2020-09-09] MEDS: SENNOSIDES 8.6 MG TAB PO SCH ×2 (08:32→21:09)
[2020-09-09] MEDS: ASPIRIN 81 MG PO SCH (08:33)
[2020-09-09] MEDS: carvediloL 3.125 MG TAB PO SCH ×2 (08:33→17:23)
[2020-09-09] MEDS: TAMSULOSIN 0.4 MG CAP.ER.24H PO SCH (08:33)
[2020-09-09] MEDS: MULTIVITAMINS, THERA 1 EACH TAB PO SCH (08:33)
[2020-09-09] MEDS: polyethylene glycoL 3350 17 GM POWD.PACK PO SCH (08:33)
[2020-09-09] MEDS: APIXABAN 5 MG TAB PO SCH ×2 (08:34→21:10)
[2020-09-09] MEDS: FUROSEMIDE 20 MG TAB PO SCH (08:34)
[2020-09-09] MEDS: PIPERACILLIN-TAZOBACTAM 3.375 GM in SODIUM CHLORIDE 0.9% 100 ML IVPB SCH ×3 (08:35→23:48)
[2020-09-09] MEDS: SPIRONOLACTONE 25 MG TAB PO SCH (08:35)
[2020-09-09] MEDS: INSULIN ASPART (NovoLOG) 100 UNIT/ML VIAL SQ SCH ×4 (08:38→21:10)
[2020-09-09 11:18] LABS: Glucose,Whole Blood 164 mg/dL (75-99)
--- NOTE | 2020-09-09 14:06 | P.PN ---
Subjective Progress Note Date: 09/09/20 The patient had some exacerbation of his back pain early this a.m., in association with increased activity, when he was trying to go to the bathroom and had accidentally pulled out his IV. This was however able to be controlled, and he has been he would consider the chair for one half hours this a.m. No lower extremity weakness or loss of sensation. Objective - Vital Signs Vital signs: Vital Signs Temp 97.8 F 09/09/20 11:06 Pulse 76 09/09/20 11:06 Resp 16 09/09/20 11:06 BP 170/96 09/09/20 11:06 Pulse Ox 95 09/09/20 11:06 Intake & Output 09/08/20 09/09/20 09/09/20 18:59 06:59 18:59 Intake Total 900 Output Total 400 Balance -400 900 Intake: Intake, IV Titration 300 Amount Piperacillin-Tazobactam 3 100 .375 gm In Sodium Chloride 0.9% 100 ml @ 25 mls/hr IVPB Q8HR [facility] Rx# :[id number] Sodium Chloride 0.9% 1, 200 000 ml @ 20 mls/hr IV . Q24H [facility] Rx#:[id number] Oral 600 Output: Urine 400 Other: Voiding Method Urinal # Voids 1 3 # Bowel Movements 0 - Constitutional General appearance: Present: no acute distress - EENT Eyes: Present: EOMI ENT: Present: hearing grossly normal, normal oropharynx - Respiratory Respiratory: bilateral: CTA - Cardiovascular Rhythm: regular Heart sounds: normal: S1, S2 - Gastrointestinal General gastrointestinal: Present: normal bowel sounds, soft - Integumentary Integumentary: Present: normal - Neurologic Neurologic: Present: CNII-XII intact - Musculoskeletal Musculoskeletal: Present: strength equal bilaterally - Psychiatric Psychiatric: Present: A&O x's 3, appropriate affect - Labs CBC & Chem 7: 09/08/20 09:39 09/08/20 09:39 Labs: Abnormal Lab Results - Last 24 Hours (Table) 09/08/20 09/08/20 09/08/20 Range/Units 09:39 17:13 20:27 Immature Gran # 0.12 H (0.00-0.04) X 10*3/uL Neutrophils # 9.06 H (1.80-7.70) X 10*3/uL Lymphocytes # 0.26 L (0.90-5.00) X 10*3/uL Eosinophils # 0 L (0.04-0.35) X 10*3/uL POC Glucose (mg/dL) 185 H 234 H (75-99) mg/dL 09/09/20 09/09/20 Range/Units 06:54 11:11 Immature Gran # (0.00-0.04) X 10*3/uL Neutrophils # (1.80-7.70) X 10*3/uL Lymphocytes # (0.90-5.00) X 10*3/uL Eosinophils # (0.04-0.35) X 10*3/uL POC Glucose (mg/dL) 133 H 164 H (75-99) mg/dL Assessment and Plan (1) Intractable back pain Narrative/Plan: Neoplasm related, due to new onset metastatic disease. The patient's pain is fairly well controlled on steroids, oxycodone ER + oxycodone IR. He did have a flare early this a.m., which was transient and late with unusual physical activity. He was subsequently able to sit up in a chair and be out of bed in reasonable comfort. - Discontinue IV steroids and switched to by mouth. Wean off steroids over the next 3 weeks - Patient has started radiation and has had 1 treatment. He will resume the same tomorrow and complete course of radiation as recommended by radiation oncology - Current regimen of oxycodone IR + ER is reasonable for outpatient. - Okay to discharge when felt to be appropriate by the admitting service Current Visit: No Status: Acute Code(s): M54.9 - DORSALGIA, UNSPECIFIED SNOMED Code(s): 398794743 (2) Squamous cell carcinoma of lung, stage IV Narrative/Plan: The patient now, unfortunately, has stage IV disease in the spine. Metastatic burden still appears to be fairly limited. Patient will follow-up with in the outpatient, to discuss starting systemic therapy after comp letion of radiation. Patient's initial tumor was PD1 positive Current Visit: Yes Status: Acute Code(s): C34.90 - MALIGNANT NEOPLASM OF UNSP PART OF UNSP BRONCHUS OR LUNG SNOMED Code(s): 020355295
[2020-09-09 17:11] LABS: Glucose,Whole Blood 190 mg/dL (75-99)
--- NOTE | 2020-09-09 17:17 | PN ---
PROGRESS NOTE DATE OF SERVICE: 09/09/2020 INTERVAL HISTORY: This 80-year-old gentleman who was admitted with severe intractable back pain secondary to metastatic lung cancer with failure of outpatient treatment is being closely monitored. The patient had some pain last night. The patient is on IV steroids and multiple other medications. No chest pain. No palpitations. No fever. PHYSICAL EXAMINATION: GENERAL: Patient is alert and oriented times three. VITAL SIGNS: Pulse 76, blood pressure 170/97, respirations 16, temperature 97.8, pulse ox 94% on room air. HEENT: Conjunctivae normal. Oral mucosa moist. NECK: No jugular venous distention. No carotid bruits. No lymph node enlargement. RESPIRATORY: Breath sounds diminished at the bases. No rhonchi, no crackles. HEART: S1 and S2, muffled. ABDOMEN: Soft, no tenderness. No masses palpable. EXTREMITIES: No edema, no swelling. NERVOUS: No focal deficits. BACK: Some tenderness present. LABS: CBC within normal limits. Glucose 234. ASSESSMENT: 1. Severe intractable pain secondary to metastatic lung cancer with failure of outpatient treatment. 2. Metastatic poorly differentiated [id number] lung cancer of the left upper lobe. 3. Multiple metastasis. 4. On radiation therapy to the back. 5. History of recent kyphoplasty T10. 6. Increased WBC, possibly reactive. 7. History of atrial fibrillation, chronic. 8. History of coronary artery disease. 9. History of congestive heart failure with chronic systolic dysfunction ejection fraction 40% to 45%. 10.Hypertension. 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 12.History of myocardial infarction. 13.History of degenerative joint disease. 14.History of prostate disorder. 15.History of colitis. 16.History of bilateral necrotizing granulomas of the lung. 17.History of bilateral lung nodules. 18.Bilateral lung restrictive disease. 19.History of MRSA. 20.History of coronary artery disease with stent. 21.History of permanent pacemaker. 22.Obesity with body mass index of 40.7. RECOMMENDATION AND DISCUSSION: Recommend to continue current medication, continue symptomatic treatment. Otherwise at this time I would recommend continue the steroids. Repeat labs. I would also recommend a back brace. Continue radiation. Further recommendations to follow. MMODL / IJN: [id number] /
[2020-09-09] MEDS: dexAMETHasone 4 MG TAB PO SCH ×2 (17:23→21:10)
[2020-09-09] MEDS: MAGNESIUM HYDROXIDE 2,400 MG/10 ML CUP PO PRN (18:36)
[2020-09-09] MEDS: SODIUM CHLORIDE 0.9% 1,000 ML IV SCH (19:51)
[2020-09-09 21:02] LABS: Glucose,Whole Blood 177 mg/dL (75-99)
[2020-09-09] MEDS: INSULIN DETEMIR (LEVEMIR) 100 UNIT/ML SYR SQ SCH (21:11)
[2020-09-10 06:54] LABS: Glucose,Whole Blood 127 mg/dL (75-99)
[2020-09-10] MEDS: INSULIN ASPART (NovoLOG) 100 UNIT/ML VIAL SQ SCH ×4 (07:16→20:45)
[2020-09-10] MEDS: dexAMETHasone 4 MG TAB PO SCH ×3 (07:25→23:55)
[2020-09-10] MEDS: TAMSULOSIN 0.4 MG CAP.ER.24H PO SCH (07:25)
[2020-09-10] MEDS: APIXABAN 5 MG TAB PO SCH ×2 (07:25→20:45)
[2020-09-10] MEDS: oxyCODONE ER 20 MG TAB.ER.12H PO SCH ×2 (07:25→20:46)
[2020-09-10] MEDS: MULTIVITAMINS, THERA 1 EACH TAB PO SCH (07:25)
[2020-09-10] MEDS: PANTOPRAZOLE 40 MG TABLET PO SCH (07:25)
[2020-09-10] MEDS: SPIRONOLACTONE 25 MG TAB PO SCH (07:25)
[2020-09-10] MEDS: FUROSEMIDE 20 MG TAB PO SCH (07:25)
[2020-09-10] MEDS: SENNOSIDES 8.6 MG TAB PO SCH ×2 (07:26→20:45)
[2020-09-10] MEDS: carvediloL 3.125 MG TAB PO SCH (07:29)
[2020-09-10] MEDS: polyethylene glycoL 3350 17 GM POWD.PACK PO SCH (07:29)
[2020-09-10] MEDS: CYCLOBENZAPRINE 5 MG TAB PO SCH ×2 (07:30→20:46)
[2020-09-10] MEDS: PIPERACILLIN-TAZOBACTAM 3.375 GM in SODIUM CHLORIDE 0.9% 100 ML IVPB SCH ×2 (07:30→17:36)
[2020-09-10 08:56] LABS: Basophils # (A) 0.04 X 10*3/uL (0.00-0.10); Basophils % (A) 0.5 %; Eosinophils # (A) 0 X 10*3/uL (0.04-0.35); Eosinophils % (A) 0 %; HCT 45.6 % (39.6-50.0); HGB 14.9 g/dL (13.0-17.0); Lymphocytes % (A) 3.4 %; MCH 29.9 pg (27.0-32.0); MCHC 32.7 g/dL (32.0-37.0); MCV 91.6 fL (80.0-97.0); Mean Platelet Volume 9.8 fL (9.5-12.2); Monocytes # (A) 0.65 X 10*3/uL (0.20-1.00); Monocytes % (A) 7.5 %; Neutrophils # (A) 7.52 X 10*3/uL (1.80-7.70); Neutrophils % (A) 86.4 %; Platelet Count 294 X 10*3/uL (140-440); RBC 4.98 X 10*6/uL (4.40-5.60); RDW 14.4 % (11.5-14.5)
[2020-09-10 09:35] LABS: African American GFR (CKD) 104.8 (60.0-200.0); Anion Gap 6.9 mmol/L (4.00-12.00); BUN/Creat Ratio 32.86 Ratio (12.00-20.00); Calcium 8.9 mg/dL (8.7-10.3); Carbon Dioxide 31.1 mmol/L (21.6-31.8); Non-African American GFR(CKD) 90.4 (60.0-200.0); Potassium 5.2 mmol/L (3.5-5.5)
[2020-09-10 10:57] LABS: Glucose,Whole Blood 260 mg/dL (75-99)
[2020-09-10] MEDS: ALPRAZolam 0.25 MG TAB PO PRN (11:21)
[2020-09-10] MEDS: oxyCODONE-APAP 10-325MG 1 EACH TAB PO PRN (11:21)
--- NOTE | 2020-09-10 12:31 | P.PN ---
Subjective Progress Note Date: 09/10/20 Principal diagnosis: Intractable pain, metastatic cancer Pt is doing well today, his pain is controlled, he started XRT and feels that it is going to help him. Denies fever, nausea, SOB, abd pain, can't remember last BM Objective - Vital Signs Vital signs: Vital Signs Temp 97.4 F L 09/10/20 11:41 Pulse 59 L 09/10/20 11:41 Resp 20 09/10/20 11:41 BP 163/106 09/10/20 11:41 Pulse Ox 96 09/10/20 11:41 Intake & Output 09/09/20 09/10/20 09/10/20 18:59 06:59 18:59 Other: Voiding Method Urinal Urinal # Voids 2 1 # Bowel Movements 0 - Constitutional General appearance: Present: cooperative, no acute distress, obese - EENT Eyes: Present: anicteric sclerae, EOMI ENT: Present: hearing grossly normal - Respiratory Respiratory: bilateral: CTA - Cardiovascular Heart sounds: normal: S1, S2 - Peripheral edema leg Peripheral Edema: bilateral: Trace - Gastrointestinal General gastrointestinal: Present: normal bowel sounds, soft - Integumentary Integumentary: Present: normal - Neurologic Neurologic: Present: CNII-XII intact - Musculoskeletal Musculoskeletal: Present: strength equal bilaterally - Psychiatric Psychiatric: Present: A&O x's 3, appropriate affect, intact judgment & insight - Labs CBC & Chem 7: 09/10/20 06:03 09/10/20 06:03 Labs: Abnormal Lab Results - Last 24 Hours (Table) 09/09/20 09/09/20 09/10/20 Range/Units 17:10 21:00 06:03 Immature Gran # 0.19 H (0.00-0.04) X 10*3/uL Lymphocytes # 0.30 L (0.90-5.00) X 10*3/uL Eosinophils # 0 L (0.04-0.35) X 10*3/uL BUN/Creatinine Ratio (12.00-20.00) Ratio Glucose (70-110) mg/dL POC Glucose (mg/dL) 190 H 177 H (75-99) mg/dL 09/10/20 09/10/20 09/10/20 Range/Units 06:03 06:52 10:55 Immature Gran # (0.00-0.04) X 10*3/uL Lymphocytes # (0.90-5.00) X 10*3/uL Eosinophils # (0.04-0.35) X 10*3/uL BUN/Creatinine Ratio 32.86 H (12.00-20.00) Ratio Glucose 132 H (70-110) mg/dL POC Glucose (mg/dL) 127 H 260 H (75-99) mg/dL Assessment and Plan (1) Pain due to malignant neoplasm metastatic to bone Narrative/Plan: Pt doing well on current regimen. Cont percocet PRN, Oxy ER and tapering steroid prescriptions sent to pt [facility] pharmacy Reviewed prevention of narcotic induced constipation Cont XRT F/U Dr. Garcia to begin anti-resorptive therapy for bone mets Cont calcium supplement Current Visit: Yes Status: Acute Priority: High Code(s): G89.3 - NEOPLASM RELATED PAIN (ACUTE) (CHRONIC); C79.51 - SECONDARY MALIGNANT NEOPLASM OF BONE SNOMED Code(s): 548770382 (2) Squamous cell carcinoma of lung, stage IV Narrative/Plan: F/U with Dr. Garcia for plan of care Current Visit: Yes Status: Acute Priority: High Code(s): C34.90 - MALIGNANT NEOPLASM OF UNSP PART OF UNSP BRONCHUS OR LUNG SNOMED Code(s): 296258006
--- NOTE | 2020-09-10 16:43 | PN ---
PROGRESS NOTE DATE OF SERVICE: 09/10/2020 INTERVAL HISTORY: This 80-year-old gentleman who was admitted with metastatic lung cancer is complaining of back pain also. Radiation therapy is ongoing. No chest pain. No palpitations. No fever. PT/OT is also evaluating the patient. PHYSICAL EXAMINATION: GENERAL: Patient is alert and oriented times three. VITAL SIGNS: Pulse 59, blood pressure 163/106, respirations 20, temperature 97.4, pulse ox 93% on room air. HEENT: Conjunctivae normal. Oral mucosa moist. NECK: No jugular venous distention. No carotid bruits. No lymph node enlargement. RESPIRATORY: Breath sounds diminished at the bases. No rhonchi, no crackles. HEART: S1 and S2, muffled. ABDOMEN: Soft, no tenderness. Obese. EXTREMITIES: No edema, no swelling. NERVOUS: No focal deficits. LABORATORY DATA: CBC noted. Sodium is ntd, glucose 127. ASSESSMENT: 1. Severe intractable back pain secondary to metastatic lung cancer with failure of outpatient treatment. 2. Metastatic poorly differentiated [id number] lung cancer of the left upper lobe. 3. Multiple metastasis. 4. On radiation therapy to the back. 5. History of recent kyphoplasty T10. 6. Increased WBC possibly reactive. 7. History of atrial fibrillation, chronic. 8. History of coronary artery disease. 9. History of congestive heart failure with chronic systolic dysfunction ejection fraction 40-45%. 10.Hypertension. 11.Diabetes type 2, possible steroid induced. 12.History of myocardial infarction. 13.History of degenerative joint disease. 14.History of prostate disorder. 15.History of colitis. 16.History of bilateral necrotizing granulomas of the lung. 17.History of bilateral lung nodule. 18.Bilateral restrictive lung disease. 19.History of MRSA. 20.History of coronary artery disease with stent. 21.History of permanent pacemaker. 22.Obesity with body mass index of 40.7. RECOMMENDATIONS AND DISCUSSION: I recommend to continue current management and continue symptomatic treatment. Continue the conservative line of management. I would also recommend increase the dose of Coreg and continue to monitor. Continue the rest of the medications. MMODL / IJN: [id number] / MTDD
[2020-09-10] MEDS: carvediloL 12.5 MG TAB PO SCH (17:35)
[2020-09-10 17:49] LABS: Glucose,Whole Blood 232 mg/dL (75-99)
[2020-09-10] MEDS: SODIUM CHLORIDE 0.9% 1,000 ML IV SCH (18:10)
[2020-09-10 20:35] LABS: Glucose,Whole Blood 169 mg/dL (75-99)
[2020-09-10] MEDS: INSULIN DETEMIR (LEVEMIR) 100 UNIT/ML SYR SQ SCH (20:45)
[2020-09-11] MEDS: oxyCODONE-APAP 10-325MG 1 EACH TAB PO PRN ×2 (02:04→12:02)
[2020-09-11 06:59] LABS: Glucose,Whole Blood 189 mg/dL (75-99)
[2020-09-11] MEDS: CYCLOBENZAPRINE 5 MG TAB PO SCH ×2 (08:13→20:54)
[2020-09-11] MEDS: SENNOSIDES 8.6 MG TAB PO SCH ×2 (08:13→20:53)
[2020-09-11] MEDS: SPIRONOLACTONE 25 MG TAB PO SCH (08:13)
[2020-09-11] MEDS: carvediloL 12.5 MG TAB PO SCH ×2 (08:13→17:15)
[2020-09-11] MEDS: APIXABAN 5 MG TAB PO SCH ×2 (08:14→20:53)
[2020-09-11] MEDS: dexAMETHasone 4 MG TAB PO SCH ×3 (08:14→21:47)
[2020-09-11] MEDS: oxyCODONE ER 20 MG TAB.ER.12H PO SCH ×2 (08:14→20:53)
[2020-09-11] MEDS: TAMSULOSIN 0.4 MG CAP.ER.24H PO SCH (08:14)
[2020-09-11] MEDS: INSULIN ASPART (NovoLOG) 100 UNIT/ML VIAL SQ SCH ×4 (08:14→20:53)
[2020-09-11] MEDS: FUROSEMIDE 20 MG TAB PO SCH (08:14)
[2020-09-11] MEDS: PANTOPRAZOLE 40 MG TABLET PO SCH (08:14)
[2020-09-11] MEDS: MULTIVITAMINS, THERA 1 EACH TAB PO SCH (08:14)
[2020-09-11] MEDS: ASPIRIN 81 MG PO SCH (08:14)
[2020-09-11] MEDS: polyethylene glycoL 3350 17 GM POWD.PACK PO SCH (08:15)
[2020-09-11 10:28] LABS: Basophils # (A) 0.03 X 10*3/uL (0.00-0.10); Basophils % (A) 0.3 %; Eosinophils # (A) 0.02 X 10*3/uL (0.04-0.35); Eosinophils % (A) 0.2 %; HCT 46.2 % (39.6-50.0); HGB 15.2 g/dL (13.0-17.0); Lymphocytes # (A) 0.38 X 10*3/uL (0.90-5.00); Lymphocytes % (A) 3.6 %; MCH 29.9 pg (27.0-32.0); MCHC 32.9 g/dL (32.0-37.0); MCV 90.9 fL (80.0-97.0); Mean Platelet Volume 9.9 fL (9.5-12.2); Monocytes # (A) 0.81 X 10*3/uL (0.20-1.00); Monocytes % (A) 7.7 %; Neutrophils # (A) 9.14 X 10*3/uL (1.80-7.70); Neutrophils % (A) 86.6 %; Platelet Count 278 X 10*3/uL (140-440); RBC 5.08 X 10*6/uL (4.40-5.60); RDW 14.3 % (11.5-14.5); WBC 10.55 X 10*3/uL (4.50-10.00)
[2020-09-11 11:10] LABS: African American GFR (CKD) 104.8 (60.0-200.0); Anion Gap 7.4 mmol/L (4.00-12.00); BUN/Creat Ratio 42.86 Ratio (12.00-20.00); Calcium 8.6 mg/dL (8.7-10.3); Carbon Dioxide 27.6 mmol/L (21.6-31.8); Non-African American GFR(CKD) 90.4 (60.0-200.0); Potassium 4.6 mmol/L (3.5-5.5)
[2020-09-11 11:48] LABS: Glucose,Whole Blood 116 mg/dL (75-99)
[2020-09-11] MEDS: LACTULOSE 20 GM/30 ML CUP PO PRN (12:02)
--- NOTE | 2020-09-11 14:55 | P.PN ---
Subjective Progress Note Date: 09/11/20 Principal diagnosis: Intractable pain, metastatic NSCLC cancer Pt had a bad night, was very uncomfortable sleeping, back pain was bad, he is feeling better as the morning progresses. He continues XRT and feels that it is going to help him. Last BM was before admit Objective - Vital Signs Vital signs: Vital Signs Temp 97.7 F 09/11/20 11:52 Pulse 66 09/11/20 11:52 Resp 18 09/11/20 11:52 BP 148/63 09/11/20 11:52 Pulse Ox 96 09/11/20 11:52 Intake & Output 09/10/20 09/11/20 09/11/20 18:59 06:59 18:59 Intake Total 160 580 Balance 160 580 Weight 132.4 kg Intake: Intake, IV Titration 160 340 Amount Piperacillin-Tazobactam 3 100 .375 gm In Sodium Chloride 0.9% 100 ml @ 25 mls/hr IVPB Q8HR FITO Rx# :[id number] Sodium Chloride 0.9% 1, 160 240 000 ml @ 20 mls/hr IV . Q24H FITO Rx#:[id number] Oral 240 Other: Voiding Method Urinal Urinal Urinal # Voids 1 2 # Bowel Movements 0 - Constitutional General appearance: Present: cooperative, obese - EENT Eyes: Present: anicteric sclerae, EOMI ENT: Present: hearing grossly normal - Respiratory Details: resp even and unlabored - Peripheral edema leg Peripheral Edema: bilateral: 1+ - Neurologic Neurologic: Present: CNII-XII intact - Musculoskeletal Musculoskeletal: Present: generalized weakness - Psychiatric Psychiatric: Present: A&O x's 3, appropriate affect, intact judgment & insight - Labs CBC & Chem 7: 09/11/20 06:42 09/11/20 06:42 Labs: Abnormal Lab Results - Last 24 Hours (Table) 09/10/20 09/10/20 09/11/20 Range/Units 17:48 20:33 06:42 WBC 10.55 H (4.50-10.00) X 10*3/uL Immature Gran # 0.17 H (0.00-0.04) X 10*3/uL Neutrophils # 9.14 H (1.80-7.70) X 10*3/uL Lymphocytes # 0.38 L (0.90-5.00) X 10*3/uL Eosinophils # 0.02 L (0.04-0.35) X 10*3/uL BUN (9.0-27.0) mg/dL BUN/Creatinine Ratio (12.00-20.00) Ratio Glucose (70-110) mg/dL POC Glucose (mg/dL) 232 H 169 H (75-99) mg/dL Calcium (8.7-10.3) mg/dL 09/11/20 09/11/20 09/11/20 Range/Units 06:42 06:57 11:40 WBC (4.50-10.00) X 10*3/uL Immature Gran # (0.00-0.04) X 10*3/uL Neutrophils # (1.80-7.70) X 10*3/uL Lymphocytes # (0.90-5.00) X 10*3/uL Eosinophils # (0.04-0.35) X 10*3/uL BUN 30.0 H (9.0-27.0) mg/dL BUN/Creatinine Ratio 42.86 H (12.00-20.00) Ratio Glucose 202 H (70-110) mg/dL POC Glucose (mg/dL) 189 H 116 H (75-99) mg/dL Calcium 8.6 L (8.7-10.3) mg/dL Assessment and Plan (1) Pain due to malignant neoplasm metastatic to bone Narrative/Plan: Pt doing well on current regimen. Cont percocet PRN, Oxy ER and tapering steroids. Oxy and steroid Rx sent to pt [facility] pharmacy Reviewed prevention of narcotic induced constipation Cont XRT to completion F/U Dr. Garcia to begin anti-resorptive therapy for bone mets and possibly treatment for metastatic NSCLC Cont calcium supplement Current Visit: Yes Status: Acute Priority: High Code(s): G89.3 - NEOPLASM RELATED PAIN (ACUTE) (CHRONIC); C79.51 - SECONDARY MALIGNANT NEOPLASM OF BONE SNOMED Code(s): 288382374 (2) Squamous cell carcinoma of lung, stage IV Narrative/Plan: F/U with Dr. Garcia for plan of care Current Visit: Yes Status: Acute Priority: High Code(s): C34.90 - MALIGNANT NEOPLASM OF UNSP PART OF UNSP BRONCHUS OR LUNG SNOMED Code(s): 941962232 (3) Constipation Narrative/Plan: Pt has senna and miralax scheduled, lactulose and milk of mag PRN. Discussed wit Nursing, PRNs to be given until pt has BM. Reminded pt that pain meds can cause constipation and he needs to be taking meds every day and using MOM or lactulose to keep a soft easily passable BM every 1-3 days. Current Visit: Yes Status: Acute Priority: High Code(s): K59.00 - CONSTIPATION, UNSPECIFIED SNOMED Code(s): 34391378 Plan: Doctor attests: I performed a history and physical examination of this patient, developed impression and plan of care, discussed with dictator. I agree with dictators note, documented as a scribe.
--- NOTE | 2020-09-11 16:11 | PN ---
PROGRESS NOTE DATE OF SERVICE: 09/11/2020 This 80-year-old gentleman who was admitted with severe intractable back pain secondary to metastatic malignancy is being closely monitored. Radiation therapy is ongoing. Medications are adjusted. The patient has extremely poor posture in the bed at this time. No chest pain. No palpitations. No fever. PHYSICAL EXAMINATION: Alert and oriented x3. Pulse is 66, blood pressure 148/66, respirations 18, temperature 97.7, pulse ox 96% on room air. HEENT: Conjunctivae normal. NECK: No jugular venous distention. CARDIOVASCULAR SYSTEM: S1, S2 muffled. RESPIRATORY SYSTEM: Breath sounds diminished at the bases. No rhonchi. No crackles. ABDOMEN: Soft, non-tender. No mass palpable. LEGS: No edema. No swelling. NERVOUS SYSTEM: Higher functions as mentioned earlier. Moves all 4 limbs. No focal motor or sensory deficit. LYMPHATICS: No lymph node palpable in neck, axillae or groin. SKIN: No ulcer, rash, bleeding. JOINTS: No active deforming arthropathy. LABS: WBC 10.2, hemoglobin 15.2, glucose 202. ASSESSMENT: 1. Severe intractable back pain secondary to metastatic lung cancer with failure of outpatient treatment. 2. Metastatic poorly differentiated oyi-drrrb-kuuf carcinoma of the left upper lobe. 3. Multiple metastases. 4. On radiation therapy to the back. 5. History of recent kyphoplasty, T10. 6. Increased white count, possibly reactive. 7. History of atrial fibrillation, chronic. 8. History of coronary artery disease. 9. History of congestive heart failure with chronic systolic dysfunction, ejection fraction 40% to 45%. 10.Hypertension. 11.Diabetes mellitus, type 2, possibly steroid-induced. 12.History of myocardial infarction. 13.History of degenerative joint disease. 14.History of prostate disorder. 15.History of colitis. 16.History of bilateral necrotizing granulomas of the lung. 17.History of bilateral lung nodule. 18.History of bilateral restrictive lung disease. 19.History of methicillin-resistant Staphylococcus aeruginosa. 20.History of coronary artery disease, stent. 21.History of permanent pacemaker. 22.Obesity with body mass index of 40.7. RECOMMENDATIONS AND DISCUSSION: I recommend to continue current medication, continue with the monitoring, symptomatic treatment. Continue with the steroids. Continue with radiation. Once the patient is stabilized, the patient may be able to be sent home. Further recommendations to follow. MMODL / IJN: [id number] /
[2020-09-11] MEDS: MAGNESIUM HYDROXIDE 2,400 MG/10 ML CUP PO PRN (17:13)
[2020-09-11 17:33] LABS: Glucose,Whole Blood 211 mg/dL (75-99)
[2020-09-11 20:27] LABS: Glucose,Whole Blood 177 mg/dL (75-99)
[2020-09-11] MEDS: INSULIN DETEMIR (LEVEMIR) 100 UNIT/ML SYR SQ SCH (20:53)
[2020-09-11] MEDS: SODIUM CHLORIDE 0.9% 1,000 ML IV SCH (23:37)
[2020-09-12] MEDS: oxyCODONE-APAP 10-325MG 1 EACH TAB PO PRN (01:56)
[2020-09-12 07:19] LABS: Glucose,Whole Blood 138 mg/dL (75-99)
[2020-09-12] MEDS: oxyCODONE ER 20 MG TAB.ER.12H PO SCH ×2 (07:32→21:15)
[2020-09-12] MEDS ORDERED: KETOROLAC 15 MG/ML 1 ML VIAL IVP STA (07:56)
[2020-09-12] MEDS ORDERED: MORPHINE SULFATE 4 MG/ML SYRINGE IM STA (08:26)
[2020-09-12] MEDS: PANTOPRAZOLE 40 MG TABLET PO SCH (08:27)
[2020-09-12] MEDS: SPIRONOLACTONE 25 MG TAB PO SCH (08:27)
[2020-09-12] MEDS: carvediloL 12.5 MG TAB PO SCH ×2 (08:27→16:27)
[2020-09-12] MEDS: SENNOSIDES 8.6 MG TAB PO SCH ×2 (08:27→21:04)
[2020-09-12] MEDS: APIXABAN 5 MG TAB PO SCH ×2 (08:27→21:04)
[2020-09-12] MEDS: dexAMETHasone 4 MG TAB PO SCH ×3 (08:27→21:04)
[2020-09-12] MEDS: CYCLOBENZAPRINE 5 MG TAB PO SCH ×2 (08:27→21:04)
[2020-09-12] MEDS: TAMSULOSIN 0.4 MG CAP.ER.24H PO SCH (08:27)
[2020-09-12] MEDS: FUROSEMIDE 20 MG TAB PO SCH (08:27)
[2020-09-12] MEDS: MULTIVITAMINS, THERA 1 EACH TAB PO SCH (08:27)
[2020-09-12] MEDS: polyethylene glycoL 3350 17 GM POWD.PACK PO SCH (08:27)
[2020-09-12] MEDS: INSULIN ASPART (NovoLOG) 100 UNIT/ML VIAL SQ SCH ×4 (08:28→21:14)
[2020-09-12] MEDS ORDERED: MORPHINE SULFATE 4 MG/ML SYRINGE IV STA (08:28)
[2020-09-12] MEDS ORDERED: HYDROmorphone 0.5 MG/0.5 ML SYRINGE IVP STA ×2 (08:35→15:27)
[2020-09-12 10:20] LABS: Basophils # (A) 0.09 X 10*3/uL (0.00-0.10); Basophils % (A) 0.8 %; Eosinophils # (A) 0.01 X 10*3/uL (0.04-0.35); Eosinophils % (A) 0.1 %; HGB 15.4 g/dL (13.0-17.0); Lymphocytes # (A) 0.23 X 10*3/uL (0.90-5.00); Lymphocytes % (A) 2.1 %; MCH 29.8 pg (27.0-32.0); MCHC 32.1 g/dL (32.0-37.0); Mean Platelet Volume 9.8 fL (9.5-12.2); Monocytes # (A) 0.56 X 10*3/uL (0.20-1.00); Neutrophils # (A) 9.98 X 10*3/uL (1.80-7.70); Platelet Count 313 X 10*3/uL (140-440); RBC 5.16 X 10*6/uL (4.40-5.60); RDW 14.4 % (11.5-14.5); WBC 11.21 X 10*3/uL (4.50-10.00)
[2020-09-12 11:04] LABS: African American GFR (CKD) 99.2 (60.0-200.0); BUN/Creat Ratio 32.5 Ratio (12.00-20.00); Non-African American GFR(CKD) 85.6 (60.0-200.0); Potassium 5.9 mmol/L (3.5-5.5)
[2020-09-12] MEDS ORDERED: SODIUM POLYSTYRENE SULFONATE 15 GM/60 ML BOTTLE PO ONE (11:29)
[2020-09-12] MEDS ORDERED: DEXTROSE 50% SYRINGE 50 ML IVP STA (11:29)
[2020-09-12] MEDS ORDERED: INSULIN REGULAR 100 UNIT/ML VIAL IV ONE (11:29)
[2020-09-12 11:42] LABS: Glucose,Whole Blood 248 mg/dL (75-99)
[2020-09-12] MEDS ORDERED: GLYCERIN ADULT SUPPOSITORY 1 EACH RECTAL STA (11:52)
[2020-09-12] MEDS ORDERED: MINERAL OIL 133 ML ENEMA RECTAL STA (11:53)
[2020-09-12] MEDS: MORPHINE CONC SOLN 10mg/0.5mL ORAL SYRG PO SCH ×2 (13:14→15:21)
[2020-09-12] MEDS: SODIUM CHLORIDE 0.9% 1,000 ML IV SCH (14:33)
--- NOTE | 2020-09-12 16:16 | P.PN ---
Subjective Progress Note Date: 09/12/20 This is a 80-year-old male who was recently admitted with severe intractable back pain secondary to metastatic malignancy and being closely monitored. Patient recently underwent kyphoplasty with biopsy which was positive for malignancy in the T10 area. Patient is currently receiving radiation therapy. Patient continues to be in extreme 10 out of 10 pain and crying and moaning. Oncology following as well and has made multiple adjustments to medications. Patient was also noted to be constipated with most recent bowel movement in over a week ago. Patient is on multiple opioids and is at an increased risk for constipation. Patient was placed on bowel regimen as needed although we'll transition to scheduled. Patient received a suppository with no results and ultimately prescribed an enema and had a large bowel movement. Patient was scheduled to be discharged although continues to be in severe pain and will be going home with although it took 2 people with maximum assistance to get up from the bedside commode. Will need better control his pain and assess for the possibility of requiring further care or possible rehab. Patient's potassium was also found to be 5.9 and given a dose of dextrose along with 10 units of insulin and Kayexalate. We'll repeat a.m. labs. Review of systems: Constitutional: No reports of fatigue, fever, or chills Cardiovascular: No reports of chest pain or palpitations Respiratory: No reports of shortness of breath or cough GI: No reports of nausea, vomiting, or diarrhea : No reports of dysuria or retention Neurovascular: Reports generalized weakness and severe back pain 10 on a 10 on the pain scale All medications have been reviewed Objective - Vital Signs Vital signs: Vital Signs Temp 97.5 F L 09/12/20 11:34 Pulse 70 09/12/20 11:34 Resp 18 09/12/20 11:34 BP 130/81 09/12/20 11:34 Pulse Ox 98 09/12/20 11:34 Intake & Output 09/11/20 09/12/20 09/12/20 18:59 06:59 18:59 Intake Total 800 1190 Output Total 350 Balance 800 840 Intake: Oral 800 1190 Output: Urine 350 Other: Voiding Method Urinal Urinal Urinal # Voids 3 2 - Exam Gen: This is a 80-year-old male awake, alert and oriented 3, well-developed, well-nourished, obese. HEENT: Head is atraumatic, normocephalic. Pupils equal, round. Sclerae is anicteric. NECK: Supple. No JVD. No lymphadenopathy. No thyromegaly. LUNGS: Clear to auscultation. No wheezes or rhonchi. No intercostal retractions. HEART: Regular rate and rhythm. No murmur. ABDOMEN: Soft. Bowel sounds are present. No masses. No tenderness. EXTREMITIES: No pedal edema. No calf tenderness. NEUROLOGICAL: Patient is awake, alert and oriented x3. weak and in extreme amount of pain in his back. - Labs CBC & Chem 7: 09/12/20 05:16 09/12/20 05:16 Labs: Abnormal Lab Results - Last 24 Hours (Table) 09/11/20 09/11/20 09/12/20 Range/Units 17:29 20:25 05:16 WBC 11.21 H (4.50-10.00) X 10*3/uL Immature Gran # 0.34 H (0.00-0.04) X 10*3/uL Neutrophils # 9.98 H (1.80-7.70) X 10*3/uL Lymphocytes # 0.23 L (0.90-5.00) X 10*3/uL Eosinophils # 0.01 L (0.04-0.35) X 10*3/uL Potassium (3.5-5.5) mmol/L Carbon Dioxide (21.6-31.8) mmol/L BUN/Creatinine Ratio (12.00-20.00) Ratio Glucose (70-110) mg/dL POC Glucose (mg/dL) 211 H 177 H (75-99) mg/dL 09/12/20 09/12/20 09/12/20 Range/Units 05:16 07:10 11:37 WBC (4.50-10.00) X 10*3/uL Immature Gran # (0.00-0.04) X 10*3/uL Neutrophils # (1.80-7.70) X 10*3/uL Lymphocytes # (0.90-5.00) X 10*3/uL Eosinophils # (0.04-0.35) X 10*3/uL Potassium 5.9 H (3.5-5.5) mmol/L Carbon Dioxide 32.0 H (21.6-31.8) mmol/L BUN/Creatinine Ratio 32.50 H (12.00-20.00) Ratio Glucose 133 H (70-110) mg/dL POC Glucose (mg/dL) 138 H 248 H (75-99) mg/dL Assessment and Plan Assessment: Severe intractable back pain secondary to metastatic lung cancer with failure of patient treatment Metastatic poorly differentiated non-small cell carcinoma of the left upper lobe Multiple metastasis Hyperkalemia On radiation therapy to the back History of recent kyphoplasty, T10 Increased white count, possibly reactive History of atrial fibrillation chronic next line history of coronary artery disease neck line history of congestive heart failure with chronic systolic dysfunction, ejection fraction 40-45% Hypertension 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 pacemaker Obesity with Body mass index of 40.7 Full code Plan: Patient has been receiving radiation treatments with radiation oncology and will continue. Patient received a dose today and oncology also following. Multiple adjustments to pain medications have been done with prescription sent to the pharmacy. Patient continues to be in extreme 10 out of 10 pain requiring almost maximum assistance getting up out of the bed and off the commode. at the bedside. Will need to discuss options moving forward as patient was scheduled to be discharged today. Patient was given a dose of dextrose with insulin for potassium of 5.9 and will repeat a.m. labs. Possible social work consult to discuss home care or further treatment options.
[2020-09-12 17:08] LABS: Glucose,Whole Blood 130 mg/dL (75-99)
--- NOTE | 2020-09-12 18:54 | P.PN ---
Subjective Progress Note Date: 09/12/20 Principal diagnosis: Intractable pain, metastatic NSCLC cancer Pt had a bad night again, woke up in severe pain (the bed??). He continues XRT. I guess pt has a back brace but, I have never seen it on him. Still no BM Objective - Vital Signs Vital signs: Vital Signs Temp 97.6 F 09/12/20 05:10 Pulse 65 09/12/20 05:10 Resp 16 09/12/20 05:10 BP 161/82 09/12/20 05:10 Pulse Ox 95 09/12/20 05:10 Intake & Output 09/11/20 09/12/20 09/12/20 18:59 06:59 18:59 Intake Total 800 1190 Output Total 350 Balance 800 840 Intake: Oral 800 1190 Output: Urine 350 Other: Voiding Method Urinal Urinal # Voids 3 2 - Constitutional General appearance: Present: cooperative, morbidly obese - EENT Eyes: Present: anicteric sclerae, EOMI ENT: Present: hearing grossly normal - Respiratory Respiratory: bilateral: CTA - Cardiovascular Rhythm: regular Heart sounds: normal: S1, S2 Abnormal Heart Sounds: Absent: systolic murmur, diastolic murmur, rub, S3 Gallop, S4 Gallop, click, other - Peripheral edema leg Peripheral Edema: bilateral: Trace - Gastrointestinal General gastrointestinal: Present: normal bowel sounds, soft - Neurologic Neurologic: Present: CNII-XII intact - Musculoskeletal Musculoskeletal: Present: generalized weakness - Psychiatric Psychiatric: Present: A&O x's 3, appropriate affect, intact judgment & insight - Labs CBC & Chem 7: 09/12/20 05:16 09/12/20 05:16 Labs: Abnormal Lab Results - Last 24 Hours (Table) 09/11/20 09/11/20 09/11/20 Range/Units 06:42 11:40 17:29 WBC (4.50-10.00) X 10*3/uL Immature Gran # (0.00-0.04) X 10*3/uL Neutrophils # (1.80-7.70) X 10*3/uL Lymphocytes # (0.90-5.00) X 10*3/uL Eosinophils # (0.04-0.35) X 10*3/uL BUN 30.0 H (9.0-27.0) mg/dL BUN/Creatinine Ratio 42.86 H (12.00-20.00) Ratio Glucose 202 H (70-110) mg/dL POC Glucose (mg/dL) 116 H 211 H (75-99) mg/dL Calcium 8.6 L (8.7-10.3) mg/dL 09/11/20 09/12/20 09/12/20 Range/Units 20:25 05:16 07:10 WBC 11.21 H (4.50-10.00) X 10*3/uL Immature Gran # 0.34 H (0.00-0.04) X 10*3/uL Neutrophils # 9.98 H (1.80-7.70) X 10*3/uL Lymphocytes # 0.23 L (0.90-5.00) X 10*3/uL Eosinophils # 0.01 L (0.04-0.35) X 10*3/uL BUN (9.0-27.0) mg/dL BUN/Creatinine Ratio (12.00-20.00) Ratio Glucose (70-110) mg/dL POC Glucose (mg/dL) 177 H 138 H (75-99) mg/dL Calcium (8.7-10.3) mg/dL Assessment and Plan (1) Pain due to malignant neoplasm metastatic to bone Narrative/Plan: Pt now c/o severe pain in AM hours. I told him it seems like laying too much in bed is part of his pain but, he said his back hurt when he want to the bathroom too so that can't be it. Case was discussed with Attending P[employer] HATCH[employer] SUPERVISOR and we tried multiple medications to help with pt pain but, the only thing that seemed to help was dilaudid. SO, IVP dilaudid ordered. Will see how much pt needs to stay comfortable, increase Oxy ER accordingly and get pt over to oral dilaudid. He is on too many antiplatelet meds and anticoagulation to consider NSAIDs-his fall risk and risk of bleeding is high already. Pt doesn't use the muscle relaxant so, maybe try that as well. Reviewed prevention of narcotic induced constipation. Cont XRT F/U Dr. Garcia to begin anti-resorptive therapy for bone mets and possibly treatment for metastatic NSCLC Cont calcium supplement Nursing reporting that family may not be able to manage pt at home because of weakness as pt is not moving due to pain. Consult Case Management and PT/OT to evaluate to see if pt needs rehab Current Visit: Yes Status: Acute Priority: High Code(s): G89.3 - NEOPLASM RELATED PAIN (ACUTE) (CHRONIC); C79.51 - SECONDARY MALIGNANT NEOPLASM OF BONE SNOMED Code(s): 378502748 (2) Squamous cell carcinoma of lung, stage IV Narrative/Plan: F/U with Dr. Garcia for plan of care Current Visit: Yes Status: Acute Priority: High Code(s): C34.90 - MALIGNANT NEOPLASM OF UNSP PART OF UNSP BRONCHUS OR LUNG SNOMED Code(s): 454701239 (3) Constipation Narrative/Plan: Pt has senna and miralax scheduled, lactulose and milk of mag PRN. Pt still has had no BM. Ordered glycerine suppository and then enema if no results. Reminded pt that pain meds can cause constipation and he needs to be taking meds every day and using MOM or lactulose to keep a soft easily passable BM every 1-3 days. Current Visit: Yes Status: Acute Priority: High Code(s): K59.00 - CONSTIPATION, UNSPECIFIED SNOMED Code(s): 10558649
[2020-09-12] MEDS: INSULIN DETEMIR (LEVEMIR) 100 UNIT/ML SYR SQ SCH (21:14)
[2020-09-12 21:17] LABS: Glucose,Whole Blood 158 mg/dL (75-99)
[2020-09-12 22:51] VITALS: RESP 16
[2020-09-13] MEDS: HYDROmorphone 1 MG/ML 1 ML SYRINGE IVP PRN ×4 (01:47→15:32)
[2020-09-13] MEDS: ALPRAZolam 0.25 MG TAB PO PRN (02:59)
[2020-09-13 04:31] VITALS: BP 172/97; PULSE 66; TEMP 97.5
[2020-09-13 07:34] LABS: Glucose,Whole Blood 122 mg/dL (75-99)
[2020-09-13] MEDS: carvediloL 12.5 MG TAB PO SCH (08:16)
[2020-09-13] MEDS: SENNOSIDES 8.6 MG TAB PO SCH (08:16)
[2020-09-13] MEDS: dexAMETHasone 4 MG TAB PO SCH ×2 (08:16→15:32)
[2020-09-13] MEDS: polyethylene glycoL 3350 17 GM POWD.PACK PO SCH (08:16)
[2020-09-13] MEDS: ASPIRIN 81 MG PO SCH (08:17)
[2020-09-13] MEDS: CYCLOBENZAPRINE 5 MG TAB PO SCH (08:17)
[2020-09-13] MEDS: SPIRONOLACTONE 25 MG TAB PO SCH (08:17)
[2020-09-13] MEDS: MULTIVITAMINS, THERA 1 EACH TAB PO SCH (08:17)
[2020-09-13] MEDS: PANTOPRAZOLE 40 MG TABLET PO SCH (08:17)
[2020-09-13] MEDS: oxyCODONE ER 20 MG TAB.ER.12H PO SCH (08:18)
[2020-09-13] MEDS: TAMSULOSIN 0.4 MG CAP.ER.24H PO SCH (08:18)
[2020-09-13] MEDS: FUROSEMIDE 20 MG TAB PO SCH (08:18)
[2020-09-13] MEDS: APIXABAN 5 MG TAB PO SCH (08:18)
[2020-09-13] MEDS: INSULIN ASPART (NovoLOG) 100 UNIT/ML VIAL SQ SCH ×2 (08:20→13:31)
[2020-09-13] MEDS ORDERED: DEXTROSE 50% SYRINGE 50 ML IVP STA (10:47)
[2020-09-13] MEDS ORDERED: INSULIN REGULAR 100 UNIT/ML VIAL IV ONE (11:00)
[2020-09-13 12:48] LABS: Glucose,Whole Blood 149 mg/dL (75-99)
--- NOTE | 2020-09-13 15:42 | P.DS ---
Providers Date of admission: 09/05/20 12:23 Expected date of discharge: 09/13/20 Attending physician: Shannon Nichols Consults: 09/05/20 13:36 Consult Physician Routine Consulting Provider: Anthony Cary Consult Reason/Comments: malignancy Do you want consulting provider notified?: Yes 09/05/20 14:18 Consult Physician Routine Consulting Provider: Adelfo Melara Consult Reason/Comments: lung cancer w/mets Do you want consulting provider notified?: Yes 09/06/20 16:52 Consult Physician Routine Consulting Provider: Odessa Sanchez Consult Reason/Comments: lung ca Do you want consulting provider notified?: Yes Primary care physician: Fredy [facility] Hospital Course: Final Diagnosis Severe intractable back pain secondary to metastatic lung cancer with failure of patient treatment 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 pacemaker Obesity with Body mass index of 40.7 Full code Discharge disposition Patient is being discharged in a stable condition with guarded prognosis to home. Patient will follow-up with Dr. Garcia and Dr. Melara in the outpatient setting upon discharge. Patient is to receive radiation therapy tomorrow as scheduled. Tinea with pain management and bowel regimen per oncological services. Total time taken is greater than 35 minutes. Hospital course This is a 80-year-old male who was recently admitted with severe intractable back pain secondary to metastatic malignancy and being closely monitored. Patient recently underwent kyphoplasty with biopsy which was positive for malignancy in the T10 area. Patient is currently receiving radiation therapy. Patient continues to be in extreme 10 out of 10 pain and crying and moaning. Oncology following as well and has made multiple adjustments to medications. Patient was also noted to be constipated with most recent bowel movement in over a week ago. Patient is on multiple opioids and is at an increased risk for constipation. Patient was placed on bowel regimen as needed although we'll transition to scheduled. Patient received a suppository with no results and ultimately prescribed an enema and had a large bowel movement. Patient was scheduled to be discharged although continues to be in severe pain and will be going home with although it took 2 people with maximum assistance to get up from the bedside commode. Will need better control his pain and assess for the possibility of requiring further care or possible rehab. Patient's potassium was also found to be 5.9 and given a dose of dextrose along with 10 units of insulin and Kayexalate. We'll repeat a.m. labs. 09/13/2020 Patient is seen and evaluated this morning and follow-up in pain is more controlled and patient is stating he is ready to go home today. Patient is to receive another dose of radiation treatment along with tomorrow as scheduled. Multiple prescriptions sent to the pharmacy for pain management along with bowel regimen. Instructed the patient to continue with bowel regimen as scheduled not as needed. Patient also instructed to increase activity as tolerated and continue with the back brace while out of bed. Patient will follow-up with oncology and radiation oncology in the outpatient setting. Recommended repeat labs and hold Aldactone for the next 2-3 days his potassium was slightly elevated. Currently no reports of chest pain, shortness of breath, or palpitations. Patient is afebrile. No reports of nausea or vomiting and patient is tolerating diet. Patient will be discharged home today. Guarded prognosis On exam vital signs are stable. Cardio S1, S2 are muffled. Respiratory system shows diminished breath sounds at the bases with no wheezing or rhonchi noted. Abdomen is soft and obese, and nontender. Nervous system shows no focal deficits. Please refer to medication reconciliation sheet for a list of medications. Patient Condition at Discharge: Stable Plan - Discharge Summary Discharge Rx Participant: No New Discharge Prescriptions: New Dexamethasone [Decadron] 4 mg PO TID #46 tablet oxyCODONE ER [OxyCONTIN] 20 mg PO Q12HR 3 Days #6 tab Magnesium Hydroxide [Milk of Magnesia Concentrate] 2,400 mg PO BID PRN #360 ml PRN Reason: Constipation polyethylene glycoL 3350 [Miralax] 17 gm PO DAILY 30 Days #30 powd.pack Pantoprazole [Protonix] 40 mg PO AC-BRKFST 30 Days #30 tablet.dr Dalton [Senokot] 17.2 mg PO BID 30 Days #120 tab ALPRAZolam [Xanax] 0.25 mg PO TID PRN #10 tab PRN Reason: Anxiety Continue Aspirin 81 mg PO Q48H Multivitamins, Thera [Multivitamin (formulary)] 1 tab PO DAILY Tamsulosin [Flomax] 0.4 mg PO DAILY Furosemide [Lasix] 20 mg PO DAILY Spironolactone 25 mg PO DAILY Apixaban [Eliquis] 5 mg PO BID carvediloL [Coreg] 3.125 mg PO BID Cyclobenzaprine [Flexeril] 10 mg PO BID PRN PRN Reason: Muscle Spasm Lactulose [Constulose] 10 gm PO DAILY PRN PRN Reason: Constipation Discontinued oxyCODONE-APAP 7.5-325MG [Percocet 7.5-325 mg] 1.5 tab PO ONCE PRN PRN Reason: Pain Amoxic-Pot Clav 875-125Mg [Augmentin 875-125] 1 tab PO Q12HR 7 Days #14 tab oxyCODONE-APAP 10-325MG [Percocet 10-325 mg] 1 tab PO Q6H PRN PRN Reason: Pain Discharge Medication List Aspirin 81 mg PO Q48H 11/27/16 [History] Multivitamins, Thera [Multivitamin (formulary)] 1 tab PO DAILY 11/27/16 [History] Furosemide [Lasix] 20 mg PO DAILY 02/19/18 [History] Tamsulosin [Flomax] 0.4 mg PO DAILY 02/19/18 [History] Spironolactone 25 mg PO DAILY 09/08/19 [History] Apixaban [Eliquis] 5 mg PO BID 08/22/20 [History] Cyclobenzaprine [Flexeril] 10 mg PO BID PRN 08/22/20 [History] carvediloL [Coreg] 3.125 mg PO BID 08/22/20 [History] Lactulose [Constulose] 10 gm PO DAILY PRN 09/05/20 [History] Dexamethasone [Decadron] 4 mg PO TID #46 tablet 09/10/20 [Rx] oxyCODONE ER [OxyCONTIN] 20 mg PO Q12HR 3 Days #6 tab 09/10/20 [Rx] ALPRAZolam [Xanax] 0.25 mg PO TID PRN #10 tab 09/12/20 [Rx] Magnesium Hydroxide [Milk of Magnesia Concentrate] 2,400 mg PO BID PRN #360 ml 09/12/20 [Rx] Pantoprazole [Protonix] 40 mg PO AC-BRKFST 30 Days #30 tablet. 09/12/20 [Rx] Sennosides [Senokot] 17.2 mg PO BID 30 Days #120 tab 09/12/20 [Rx] polyethylene glycoL 3350 [Miralax] 17 gm PO DAILY 30 Days #30 powd.pack 09/12/20 [Rx] Follow up Appointment(s)/Referral(s): Adelfo Melara MD [STAFF PHYSICIAN] - 1 Week (Per Cardiology for Pacemaker monitoring when discharged, Monitor Pacemaker Remotely and send manual transmission when discharged from the hospital and weekly until Radiation treatment is completed. Radiation scheduled 09/12/2020 at 2pm, 09/13/2020 at 1:30pm and 09/14/2020 at 2pm and then completed ) Huan Garcia MD [STAFF PHYSICIAN] - 10 Days Ambulatory/Diagnostic Orders: Basic Metabolic Panel [LAB.AMB] Time Frame: 2 Days, Location: None Selected Patient Instructions/Handouts: Alprazolam (By mouth), Dexamethasone (By mouth), Oxycodone, Slow Release (By mouth) Activity/Diet/Wound Care/Special Instructions: Pain management plan: Oxy ER 20mg BID-Rx sent. Pt will cont percocet 10/325mg tabs, 1 PO Q 4 hours as needed. He will be seen by Rad Onc tomorrow who Hem/Onc will discuss case with and ensure adequate pain control or adjust if needed. Prevention of narcotic induced constipation: Senna, 2 tabs twice a day, every day. Use milk of magnesia or miralax 1-2 times a day as needed. Goal is soft, easily passable bowel movement every 1-3 days. DO NOT hold unless having diarrhea. [place] fluids, activity as tolerated. Wear back brace as directed. Hold Aldactone for the next 3 days and repeat labs to monitor potassium follow up primary care provider upon discharge follow up with oncology and radiation oncology scheduled Continue bowel regimen and take prescribed medications daily repeat labs in 2-3 days Discharge Disposition: HOME SELF-CARE
--- NOTE | 2020-09-13 16:14 | P.PN ---
Subjective Progress Note Date: 09/13/20 Principal diagnosis: Intractable pain, metastatic NSCLC cancer Pt had a bad night again, but is feeling better sooner then he has the last 2 days. He is in the chair with his back brace on. He had large BM yesterday. He continues XRT. Objective - Vital Signs Vital signs: Vital Signs Temp 97.5 F L 09/13/20 04:30 Pulse 66 09/13/20 04:30 Resp 16 09/12/20 21:05 BP 172/97 09/13/20 04:30 Pulse Ox 95 09/13/20 04:30 Intake & Output 09/12/20 09/13/20 09/13/20 18:59 06:59 18:59 Intake Total 720 Output Total 300 Balance 720 -300 Weight 132.4 kg Intake: Intake, IV Titration 0 Amount Sodium Chloride 0.9% 1, 0 000 ml @ 20 mls/hr IV . Q24H FITO Rx#:[id number] Oral 720 Output: Urine 300 Other: Voiding Method Urinal Urinal # Voids 4 3 1 # Bowel Movements 1 - Constitutional General appearance: Present: cooperative, no acute distress, obese - EENT Eyes: Present: anicteric sclerae, EOMI ENT: Present: hearing grossly normal - Respiratory Respiratory: bilateral: CTA - Cardiovascular Rhythm: regular Heart sounds: normal: S1, S2 Abnormal Heart Sounds: Absent: systolic murmur, diastolic murmur, rub, S3 Gallop, S4 Gallop, click, other - Peripheral edema leg Peripheral Edema: bilateral: Trace - Gastrointestinal General gastrointestinal: Present: decreased bowel sounds, soft - Integumentary Integumentary: Present: normal - Neurologic Neurologic: Present: CNII-XII intact - Musculoskeletal Musculoskeletal: Present: generalized weakness - Psychiatric Psychiatric: Present: A&O x's 3, appropriate affect, intact judgment & insight - Labs CBC & Chem 7: 09/12/20 05:16 09/13/20 09:20 Labs: Abnormal Lab Results - Last 24 Hours (Table) 09/12/20 09/12/20 09/13/20 Range/Units 17:06 21:08 07:28 Potassium (3.5-5.1) mmol/L POC Glucose (mg/dL) 130 H 158 H 122 H (75-99) mg/dL 09/13/20 09/13/20 Range/Units 09:20 12:37 Potassium 5.6 H (3.5-5.1) mmol/L POC Glucose (mg/dL) 149 H (75-99) mg/dL Assessment and Plan (1) Pain due to malignant neoplasm metastatic to bone Narrative/Plan: Pt never tried the roxanol so, leaving him on the Oxy ER and he will use his percocet Q4 hours PRN. He sees Rad Onc tomorrow who I discussed case with. They will assess his pain and provide pt with new Rx as needed. Reviewed prevention of narcotic induced constipation. Cont XRT F/U Dr. Garcia to begin anti-resorptive therapy for bone mets and possibly t reatment for metastatic NSCLC. Cont calcium supplement Current Visit: Yes Status: Acute Priority: High Code(s): G89.3 - NEOPLASM RELATED PAIN (ACUTE) (CHRONIC); C79.51 - SECONDARY MALIGNANT NEOPLASM OF BONE SNOMED Code(s): 732149602 (2) Squamous cell carcinoma of lung, stage IV Narrative/Plan: F/U with Dr. Garcia for plan of care Current Visit: Yes Status: Acute Priority: High Code(s): C34.90 - MALIGNANT NEOPLASM OF UNSP PART OF UNSP BRONCHUS OR LUNG SNOMED Code(s): 486122778 (3) Constipation Narrative/Plan: After glycerine suppository yesterday pt had large BM. Reminded pt that pain meds can cause constipation and he needs to be taking meds every day and using MOM or lactulose to keep a soft easily passable BM every 1-3 days. Current Visit: Yes Status: Acute Priority: High Code(s): K59.00 - CONSTIPATION, UNSPECIFIED SNOMED Code(s): 96306998
== END 2020-09-13 17:14 | disposition home or self-care (01) | DRG 948 ==
LOC: 5NMEDONC 12:23
PROVIDERS: ADMIT Hospitalist; ATTEND Hospitalist
DX: G89.3 Neoplasm related pain (acute) (chronic) (principal); C34.12 Malignant neoplasm of upper lobe, left bronchus or lung; C78.00 Secondary malignant neoplasm of unspecified lung; C79.51 Secondary malignant neoplasm of bone; I48.20 Chronic atrial fibrillation, unspecified; I50.22 Chronic systolic (congestive) heart failure; Z68.41 Body mass index [BMI] 40.0-44.9, adult; I11.0 Hypertensive heart disease with heart failure; I25.10 Atherosclerotic heart disease of native coronary artery without angina pectoris; E09.9 Drug or chemical induced diabetes mellitus without complications; T38.0X5A Adverse effect of glucocorticoids and synthetic analogues, initial encounter; E66.9 Obesity, unspecified; E87.5 Hyperkalemia; I25.2 Old myocardial infarction; J84.10 Pulmonary fibrosis, unspecified; J98.4 Other disorders of lung; K59.03 Drug induced constipation; T40.2X5A Adverse effect of other opioids, initial encounter; Z79.01 Long term (current) use of anticoagulants; Z79.899 Other long term (current) drug therapy; Z82.49 Family history of ischemic heart disease and other diseases of the circulatory system; Z86.14 Personal history of Methicillin resistant Staphylococcus aureus infection; Z87.891 Personal history of nicotine dependence; Z91.81 History of falling; Z92.3 Personal history of irradiation; Z95.0 Presence of cardiac pacemaker; Z95.5 Presence of coronary angioplasty implant and graft; Z96.653 Presence of artificial knee joint, bilateral; Z88.5 Allergy status to narcotic agent; Z88.8 Allergy status to other drugs, medicaments and biological substances; Z98.42 Cataract extraction status, left eye; Z98.41 Cataract extraction status, right eye; Z99.81 Dependence on supplemental oxygen; Z79.82 Long term (current) use of aspirin
CPT/HCPCS: 70450; 71045; 71250; 74176; 77280; 77290; 77307; 77332; 77334; 77336; 77387; 77412; 77427; 80048; 80053; 81001; 83735; 84132; 85025; 85610; 85652; 93005; 94760

== ENCOUNTER 2020-09-18 11:00 | Inpatient (IN) | payer MEDICARE ==
[2020-09-18 11:09] LABS: Glucose,Whole Blood 144 mg/dL (75-99)
[2020-09-18] MEDS ORDERED: HYDROmorphone 1 MG/ML 1 ML SYRINGE IVP STA ×2 (11:16→12:57)
--- NOTE | 2020-09-18 11:20 | ED ---
General Adult HPI - General Chief complaint: Fall Stated complaint: fall Time Seen by Provider: 09/18/20 11:05 Source: patient, EMS, RN notes reviewed Mode of arrival: EMS Limitations: no limitations - History of Present Illness Initial comments: Patient is a pleasant 80-year-old male presenting to the emergency department following a fall. Patient slipped and fell down a proximal he 4 steps prior to arrival. Patient is on Eliquis secondary to history of atrial fibrillation. Patient denies head injury or neck pain. Patient does have increase of his chronic back pain. Patient does have tumor in the T10 region and did recently finish radiation therapy for this. No chemotherapy at this time. Patient complains of severe discomfort of his back. Patient is unclear if this is worse than his normal discomfort. Patient also has some mild to moderate discomfort of his right knee. No confusion or weakness. No chest pain or dyspnea. No abdominal pain. Patient was unable to get up and ambulate following the fall. - Related Data Home Medications Medication Instructions Recorded Confirmed Aspirin 81 mg PO Q48H 11/27/16 09/18/20 Multivitamins, Thera [Multivitamin 1 tab PO DAILY 11/27/16 09/18/20 (formulary)] Furosemide [Lasix] 20 mg PO DAILY 02/19/18 09/18/20 Tamsulosin [Flomax] 0.4 mg PO DAILY 02/19/18 09/18/20 Spironolactone 25 mg PO DIRECTED 09/08/19 09/18/20 Apixaban [Eliquis] 5 mg PO BID 08/22/20 09/18/20 Cyclobenzaprine [Flexeril] 10 mg PO BID PRN 08/22/20 09/18/20 carvediloL [Coreg] 3.125 mg PO BID 08/22/20 09/18/20 Lactulose [Constulose] 10 gm PO DAILY PRN 09/05/20 09/18/20 Dexamethasone [Decadron] See Taper PO DIRECTED 09/18/20 09/18/20 Previous Rx's Medication Instructions Recorded oxyCODONE ER [OxyCONTIN] 20 mg PO Q12HR 3 Days #6 tab 09/10/20 ALPRAZolam [Xanax] 0.25 mg PO TID PRN #10 tab 09/12/20 Magnesium Hydroxide [Milk of 2,400 mg PO BID PRN #360 ml 09/12/20 Magnesia Concentrate] Pantoprazole [Protonix] 40 mg PO AC-BRKFST 30 Days #30 09/12/20 tablet. Sennosides [Senokot] 17.2 mg PO BID 30 Days #120 tab 09/12/20 polyethylene glycoL 3350 [Miralax] 17 gm PO DAILY 30 Days #30 09/12/20 powd.pack Allergies Allergy/AdvReac Type Severity Reaction Status Date / Time hydrocodone [From Vicodin] AdvReac Hallucinati Verified 09/18/20 13:21 ons [id number] Reductase AdvReac MUSCLE PAIN Verified 09/18/20 13:21 Inhibitor Review of Systems ROS Statement: Those systems with pertinent positive or pertinent negative responses have been documented in the HPI. ROS Other: All systems not noted in ROS Statement are negative. Constitutional: Denies: fever Eyes: Denies: eye pain ENT: Denies: ear pain Respiratory: Denies: cough Cardiovascular: Denies: chest pain Endocrine: Denies: fatigue Gastrointestinal: Denies: abdominal pain Genitourinary: Denies: dysuria Musculoskeletal: Reports: as per HPI, back pain Skin: Denies: rash Neurological: Denies: headache, weakness Past Medical History Past Medical History: Atrial Fibrillation, Coronary Artery Disease (CAD), Cancer, Heart Failure, Hypertension, Myocardial Infarction (SC), Osteoarthritis (OA), Prostate Disorder, Respiratory Disorder Additional Past Medical History / Comment(s): Pt recently admtiited to [facility] on 08/22/20 with intractable low back pain with kyphoplasty T10 with biopsy (pt has not been given results/abnormal cat scan and pt told possible mets to bone. Pt recently in [facility] ER on 09/03/20 with constipation/colitis. 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 Last Myocardial Infarction Date:: mar 2018 History of Any Multi-Drug Resistant Organisms: None Reported Past Surgical History: Back Surgery, Heart Catheterization With Stent, Joint Replacement, Orthopedic Surgery, Pacemaker Additional Past Surgical History / Comment(s): 08/2019 kyphoplasty/bx T10, 09/2019 bronch with bx/brushings/BAL, 2017 pacemaker, bilateral knee arthroscopies, bilateral total knee replacements, R knee surgery for patellar tendon tear, PCI with stents, colonoscopy, bilateral cataract removals. Past Anesthesia/Blood Transfusion Reactions: Motion Sickness Date of Last Stent Placement:: 03/23 Type of Cardiac Device: Permanent Pacemaker Device Placement Date:: 02/20 Past Psychological History: No Psychological Hx Reported Smoking Status: Former smoker - Past Family History Sister(s) Family Medical History: Cancer Brother(s) Family Medical History: Cancer Additional Family Medical History / Comment(s): 3 brothers cancer Father Family Medical History: Coronary Artery Disease (CAD), CVA/TIA, Myocardial Infarction (SC) Additional Family Medical History / Comment(s): Father had TIAs and MIs. He between the ages of 62-68yrs from what pt believes was a SC Mother Family Medical History: Myocardial Infarction (SC) Additional Family Medical History / Comment(s): Mother of a SC at the age of 88yrs. General Exam Limitations: no limitations General appearance: alert, in no apparent distress Head exam: Present: atraumatic Eye exam: Present: normal appearance, PERRL, EOMI ENT exam: Present: normal exam Neck exam: Present: normal inspection. Absent: tenderness Respiratory exam: Present: normal lung sounds bilaterally Cardiovascular Exam: Present: irregular rhythm Expanded Peripheral pulses: 2+: Dorsalis Pedis (R), Dorsalis Pedis (L) GI/Abdominal exam: Present: soft. Absent: distended, tenderness Extremities exam: Present: full ROM, tenderness (Mild tenderness right knee) Back exam: Present: tenderness (Severe tenderness approximately T10 through L5 diffusely.) Neurological exam: Present: alert, oriented X3, CN II-XII intact. Absent: motor sensory deficit Expanded Neurological exam: Present: protecting the airway Speech: Present: fluid speech Motor strength exam: RUE: 5, LUE: 5, RLE: 5, LLE: 5 Eye Response: (4) open spontaneously Motor Response: (6) obeys commands Verbal Response: (5) oriented Psychiatric exam: Present: normal affect, normal mood Skin exam: Present: normal color Course Vital Signs 09/18/20 11:01 Temperature 98.2 F Pulse Rate 84 Respiratory 18 Rate Blood Pressure 178/113 O2 Sat by Pulse 94 L Oximetry - Reevaluation(s) Reevaluation #1: 09/18/20 11:19 Patient was upgraded to trauma. Case was discussed with Dr. Chavez. 09/18/20 12:56 Patient reevaluated and updated. Case discussed with practitioner branch discussed with Dr. Choudhary for probable admission. 09/18/20 13:25 Case was again discussed with practitioner stacie who states Dr. Choudhary is currently in the OR. He does request we given touch with Dr. Peters. Fernando was then discussed with practitioner Scar who will try to get in touch with Dr. Peters. 09/18/20 13:39 Case was again discussed with practitioner Scar who did review films with Dr. Peters and does not feel patient needs any acute intervention. He feels patient will likely needs brace and pain management. 09/18/20 13:43 Case was again discussed with practitioner stacie who will admit for Dr. Choudhary EKG Findings - EKG Comments: EKG Findings:: A. fib with rate of 80. QRS 98. QT 378. QTC 435. Left axis. Inferior Q waves. No acute ST change. Medical Decision Making - Lab Data Result diagrams: 09/18/20 11:21 09/18/20 11:21 Lab Results 09/18/20 09/18/20 09/18/20 Range/Units 11:06 11:21 11:21 WBC 17.9 H (3.8-10.6) k/uL RBC 5.52 (4.30-5.90) m/uL Hgb 16.5 (13.0-17.5) gm/dL Hct 50.4 (39.0-53.0) % MCV 91.3 (80.0-100.0) fL MCH 29.9 (25.0-35.0) pg MCHC 32.7 (31.0-37.0) g/dL RDW 15.0 (11.5-15.5) % Plt Count 233 (150-450) k/uL MPV 7.7 Neutrophils % 94 % Lymphocytes % 1 % Monocytes % 4 % Eosinophils % 0 % Basophils % 0 % Neutrophils # 16.9 H (1.3-7.7) k/uL Lymphocytes # 0.2 L (1.0-4.8) k/uL Monocytes # 0.7 (0-1.0) k/uL Eosinophils # 0.1 (0-0.7) k/uL Basophils # 0.0 (0-0.2) k/uL PT 10.8 (9.0-12.0) sec INR 1.0 (<1.2) APTT 20.2 L (22.0-30.0) sec Sodium (137-145) mmol/L Potassium (3.5-5.1) mmol/L Chloride (98-107) mmol/L Carbon Dioxide (22-30) mmol/L Anion Gap mmol/L BUN (9-20) mg/dL Creatinine (0.66-1.25) mg/dL Est GFR (CKD-EPI)AfAm (>60 ml/min/1.73 sqM) Est GFR (CKD-EPI)NonAf (>60 ml/min/1.73 sqM) Glucose (74-99) mg/dL POC Glucose (mg/dL) 144 H (75-99) mg/dL POC Glu County Director Lori Morel Calcium (8.4-10.2) mg/dL Total Bilirubin (0.2-1.3) mg/dL AST (17-59) U/L ALT (4-49) U/L Alkaline Phosphatase (38-126) U/L Troponin I (0.000-0.034) ng/mL Total Protein (6.3-8.2) g/dL Albumin (3.5-5.0) g/dL Serum Alcohol mg/dL Blood Type Blood Type Confirm Blood Type Recheck Bld Type Recheck Status Antibody Screen Spec Expiration Date 09/18/20 09/18/20 09/18/20 Range/Units 11:21 11:21 11:21 WBC (3.8-10.6) k/uL RBC (4.30-5.90) m/uL Hgb (13.0-17.5) gm/dL Hct (39.0-53.0) % MCV (80.0-100.0) fL MCH (25.0-35.0) pg MCHC (31.0-37.0) g/dL RDW (11.5-15.5) % Plt Count (150-450) k/uL MPV Neutrophils % % Lymphocytes % % Monocytes % % Eosinophils % % Basophils % % Neutrophils # (1.3-7.7) k/uL Lymphocytes # (1.0-4.8) k/uL Monocytes # (0-1.0) k/uL Eosinophils # (0-0.7) k/uL Basophils # (0-0.2) k/uL PT (9.0-12.0) sec INR (<1.2) APTT (22.0-30.0) sec Sodium 135 L (137-145) mmol/L Potassium 4.6 (3.5-5.1) mmol/L Chloride 101 (98-107) mmol/L Carbon Dioxide 30 (22-30) mmol/L Anion Gap 4 mmol/L BUN 28 H (9-20) mg/dL Creatinine 0.62 L (0.66-1.25) mg/dL Est GFR (CKD-EPI)AfAm >90 (>60 ml/min/1.73 sqM) Est GFR (CKD-EPI)NonAf >90 (>60 ml/min/1.73 sqM) Glucose 160 H (74-99) mg/dL POC Glucose (mg/dL) (75-99) mg/dL POC Glu County Director ID Calcium 8.9 (8.4-10.2) mg/dL Total Bilirubin 0.9 (0.2-1.3) mg/dL AST 26 (17-59) U/L ALT 29 (4-49) U/L Alkaline Phosphatase 77 (38-126) U/L Troponin I 0.019 (0.000-0.034) ng/mL Total Protein 5.8 L (6.3-8.2) g/dL Albumin 3.4 L (3.5-5.0) g/dL Serum Alcohol <10 mg/dL Blood Type Blood Type Confirm Blood Type Recheck No Previous Record Bld Type Recheck Status CABO Indicated Antibody Screen Spec Expiration Date 09/21/2020 - 232009/18/20 09/18/20 Range/Units 11:21 11:25 WBC (3.8-10.6) k/uL RBC (4.30-5.90) m/uL Hgb (13.0-17.5) gm/dL Hct (39.0-53.0) % MCV (80.0-100.0) fL MCH (25.0-35.0) pg MCHC (31.0-37.0) g/dL RDW (11.5-15.5) % Plt Count (150-450) k/uL MPV Neutrophils % % Lymphocytes % % Monocytes % % Eosinophils % % Basophils % % Neutrophils # (1.3-7.7) k/uL Lymphocytes # (1.0-4.8) k/uL Monocytes # (0-1.0) k/uL Eosinophils # (0-0.7) k/uL Basophils # (0-0.2) k/uL PT (9.0-12.0) sec INR (<1.2) APTT (22.0-30.0) sec Sodium (137-145) mmol/L Potassium (3.5-5.1) mmol/L Chloride (98-107) mmol/L Carbon Dioxide (22-30) mmol/L Anion Gap mmol/L BUN (9-20) mg/dL Creatinine (0.66-1.25) mg/dL Est GFR (CKD-EPI)AfAm (>60 ml/min/1.73 sqM) Est GFR (CKD-EPI)NonAf (>60 ml/min/1.73 sqM) Glucose (74-99) mg/dL POC Glucose (mg/dL) (75-99) mg/dL POC Glu County Director ID Calcium (8.4-10.2) mg/dL Total Bilirubin (0.2-1.3) mg/dL AST (17-59) U/L ALT (4-49) U/L Alkaline Phosphatase (38-126) U/L Troponin I (0.000-0.034) ng/mL Total Protein (6.3-8.2) g/dL Albumin (3.5-5.0) g/dL Serum Alcohol mg/dL Blood Type AB Positive Blood Type Confirm AB Positive Blood Type Recheck Bld Type Recheck Status Antibody Screen NEGATIVE Spec Expiration Date - Radiology Data Radiology results: report reviewed (Computed tomography scan of brain and cervical spine shows atrophy. No fracture or malalignment of cervical spine. S pondylitic changes. CT thoracic spine showsmid to lower thoracic spine and previous T10 vertebral plasty. T9 and T10 vertebral bodies fractures at site of previous vertebral plast), image reviewed (X-ray of the right knee shows effusion. No fracture. 1 view chest x-ray shows cardiac megaly. Bilateral pulmonary masses and left upper lobe infiltrate similar to prior. Pelvic x-ray shows no osseous abnormality.) Disposition Clinical Impression: Fall, Thoracic vertebral fracture Disposition: ADMITTED IP TO THIS HOSP Is patient prescribed a controlled substance at d/c from ED?: No Referrals: Fredy Rodriguez III, MD [Primary Care Provider] - 1-2 days Decision Time: 13:39
[2020-09-18 11:42] LABS: Basophils % (A) 0 %; Eosinophils # (A) 0.1 k/uL (0-0.7); Eosinophils % (A) 0 %; HCT 50.4 % (39.0-53.0); HGB 16.5 gm/dL (13.0-17.5); Lymphocytes # (A) 0.2 k/uL (1.0-4.8); Lymphocytes % (A) 1 %; MCH 29.9 pg (25.0-35.0); MCHC 32.7 g/dL (31.0-37.0); MCV 91.3 fL (80.0-100.0); Mean Platelet Volume 7.7; Monocytes # (A) 0.7 k/uL (0-1.0); Monocytes % (A) 4 %; Neutrophils # (A) 16.9 k/uL (1.3-7.7); Neutrophils % (A) 94 %; Platelet Count 233 k/uL (150-450); RBC 5.52 m/uL (4.30-5.90); WBC 17.9 k/uL (3.8-10.6)
--- NOTE | 2020-09-18 11:43 | XR ---
EXAMINATION TYPE: XR chest 1V portable DATE OF EXAM: 09/18/2020 COMPARISON: 09/06/2020 HISTORY: Pain TECHNIQUE: Single frontal view of the chest is obtained. FINDINGS: Cardiac device is seen and there is a mass in the right upper lobe measuring 1.6 cm. Left- sided pulmonary nodules and masses are also seen with areas of consolidation left perihilar and left upper lobe similar to the prior exam. Heart enlarged. No pleural effusion or pneumothorax. IMPRESSION: 1. Bilateral pulmonary masses with perihilar and left upper lobe infiltrate similar to the prior exam .
--- NOTE | 2020-09-18 11:43 | XR ---
EXAMINATION TYPE: XR pelvis AP view DATE OF EXAM: 09/18/2020 COMPARISON: None HISTORY: Trauma pain TECHNIQUE: AP pelvis FINDINGS: Femoral heads articulate with the acetabulum. Joint space narrowing is present diffusely gr eater on the left. Symphysis pubis and sacroiliac joints are normal. Normal colonic bowel gas is pres ent. IMPRESSION: 1. No acute osseous abnormality AP pelvis
[2020-09-18 12:05] LABS: Prothrombin Time 10.8 sec (9.0-12.0)
[2020-09-18 12:10] LABS: Partial Thromboplastin Time 20.2 sec (22.0-30.0)
[2020-09-18 12:11] LABS: Carbon Dioxide 30 mmol/L (22-30); Chloride 101 mmol/L (98-107); Glucose 160 mg/dL (74-99); Potassium 4.6 mmol/L (3.5-5.1); Sodium 135 mmol/L (137-145)
[2020-09-18 12:12] LABS: ALT 29 U/L (4-49); AST 26 U/L (17-59); African American GFR (CKD) >90 (>60 ml/min/1.73 sqM); Albumin 3.4 g/dL (3.5-5.0); Alcohol <10 mg/dL; Alkaline Phosphatase 77 U/L (38-126); Anion Gap 4 mmol/L; Blood Urea Nitrogen 28 mg/dL (9-20); Calcium 8.9 mg/dL (8.4-10.2); Non-African American GFR(CKD) >90 (>60 ml/min/1.73 sqM); Total Bilirubin 0.9 mg/dL (0.2-1.3); Total Protein 5.8 g/dL (6.3-8.2)
--- NOTE | 2020-09-18 12:20 | XR ---
EXAMINATION TYPE: XR knee limited RT DATE OF EXAM: 09/18/2020 COMPARISON: None HISTORY: Post knee replacement, fall TECHNIQUE: 2 view right knee FINDINGS: Tibiofemoral components are present. No acute displaced fractures evident. Moderate to larg e joint effusion is present. IMPRESSION: 1. No acute fracture identified. 2. Moderate to large joint effusion
--- NOTE | 2020-09-18 12:23 | CT ---
EXAMINATION TYPE: CT brain cspine wo con DATE OF EXAM: 09/18/2020 COMPARISON: Brain 09/07/2020 HISTORY: 80-year-old male trauma, fall this morning, pain CT DLP: 1855.5 mGycm Automated exposure control for dose reduction was used. Technique: Examination of the head was done in axial plane without intravenous contrast. Coronal and sagittal reconstructions performed. CT of the cervical spine was obtained in axial plane without intravenous injection of contrast mater ial. Coronal and sagittal reformatted images were obtained from the axial views for evaluation of f ractures, spinal alignment and canal. FINDINGS: Head: There is no evidence of acute intracranial hemorrhage, acute ischemic changes, mass, mass-effect, or extra-axial fluid collection. There is no effacement of cerebral sulci or basal subarachnoid cister ns. There is no hydrocephalus. There is no midline shift. Szymanski-white matter distinction is preserv ed. Atherosclerotic calcifications within the carotid siphons. Mild to moderate generalized supratentoria l volume loss. Empty sella incidentally noted. Mild mucosal thickening ethmoid air cells. Mastoid air cells are well pneumatized. Slight leftward na quinn septal deviation. Orbits and globes are intact. Cervical spine: No craniocervical junction abnormality, predental space widening, or prevertebral soft tissue swellin g. Degenerative changes at the C1 dens articulation. Advanced hypertrophic facet arthropathy throughout. Uncovertebral joint arthropathy mid to lower cerv ical spine. Moderate distention of the degenerative change mid to lower cervical spine.. Alignment is maintained. No acute fracture of the cervical spine. Assessment of the spinal canal from C4-C5 and below is limited due to artifact from the patient's karina ulders. There is variable moderate neural foraminal stenosis throughout, more severe on the right at C6-C7. Sagittal and coronal reformatted images confirm above findings. COMBINED IMPRESSION: 1. Mild to moderate generalized atrophy. No acute intracranial abnormality seen. 2. No acute fracture or malalignment of the cervical spine. Moderate multilevel spondylotic change.
--- NOTE | 2020-09-18 12:33 | CT ---
EXAMINATION TYPE: CT thoracic spine wo con DATE OF EXAM: 09/18/2020 COMPARISON: CT 09/05/2020 HISTORY: 80-year-old male with pain after Fall TECHNIQUE: Contiguous axial scanning of the thoracic spine without IV contrast. Coronal and sagittal reconstructions performed. CT DLP: 1780.5 mGycm Automated exposure control for dose reduction was used. FINDINGS: Multiple pulmonary nodules are more fully described on the patient's recent 09/05/2020 CT body. 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 Partially visualized nonobstructive left wale al calculus measuring up to 1 cm. There is dish within the mid to lower thoracic spine. Prior vertebroplasty change of T10. There are new multiple fracture lines seen extending through the T9 and T10 vertebral bodies. No parish r extension into the posterior elements. No malalignment or emre retropulsion into the ventral spina l canal. Associated paravertebral soft tissue swelling. IMPRESSION: 1. DISH IN THE MID TO LOWER THORACIC SPINE AND PREVIOUS T10 VERTEBROPLASTY CHANGE. 2. THERE ARE MULTIPLE ACUTE FRACTURE LINES NOW SEEN INVOLVING THE T9 AND T10 VERTEBRAL BODIES THROUGH THE SITE OF PREVIOUS VERTEBROPLASTY AND THE VERTEBRAL BODY JUST ABOVE. NO EMRE MALALIGNMENT OR RETR OPULSION INTO THE SPINAL CANAL AT THIS TIME. THE VERTEBRAL BODY HEIGHTS ARE MAINTAINED AT THIS TIME. 3. KNOWN NUMEROUS PULMONARY NODULES. REFER TO CT BODY REPORT OF 09/05/2020 FOR FURTHER DETAILS.
--- NOTE | 2020-09-18 12:37 | CT ---
EXAMINATION TYPE: CT lumbar spine wo con DATE OF EXAM: 09/18/2020 12:08 PM COMPARISON: HISTORY: Fall pain CT DLP: 1453 mGycm Automated exposure control for dose reduction was used. Unenhanced CT of the lumbar spine was performed. Bone and soft tissue window settings are submitted as well as coronal and sagittal reconstructions. There is multilevel hypertrophic and degenerative change spine with multilevel facet arthropathy. For aminal encroachment is seen at levels L3-S1. No compression deformities. Assessment spinal canal limi reynold due to artifact resolution. Disc bulging and L3-4, L4-5 and L5-S1 with thecal sac effacement and possible canal stenosis which could be correlated with MRI. Atherosclerotic change aorta. There is a nonobstructing left renal calculus measuring 9 mm. IMPRESSION: 1. No acute fracture. 2. Multilevel hypertrophic and degenerative change with multilevel disc bulging and suspected foramin al encroachment and canal stenosis. Recommend follow-up MRI. 3. Nonobstructing left renal calculus.
[2020-09-18] MEDS ORDERED: ACETAMINOPHEN TAB 325 MG TAB PO PRN (13:40)
[2020-09-18] MEDS ORDERED: NALOXONE 0.4 MG/ML 1 ML VIAL IV PRN (13:40)
[2020-09-18] MEDS: traMADol 50 MG TAB PO PRN ×2 (15:15→21:26)
[2020-09-18] MEDS: HYDROmorphone 0.5 MG/0.5 ML SYRINGE IVP PRN (16:26)
[2020-09-18 18:23] LABS: Appearance,Urine Clear (Clear); Bilirubin,Urine Negative (Negative); Blood,Urine Negative (Negative); Color,Urine Yellow; Glucose,Urine (UA) Negative (Negative); Hyaline Casts,Urine 3 /lpf (0-2); Ketones,Urine Negative (Negative); Leukocyte Esterase,Urine Negative (Negative); Mucus,Urine Rare /hpf; Nitrite,Urine Negative (Negative); Protein,Urine 1+ (Negative); RBC,Urine 1 /hpf (0-5); Specific Gravity,Urine 1.018 (1.001-1.035); WBC,Urine 1 /hpf (0-5)
[2020-09-18 18:32] LABS: Amphetamine Screen,Urine Not Detected (NotDetected); Barbiturate Screen,Urine Not Detected (NotDetected); Benzodiazepines Screen,Urine Not Detected (NotDetected); Cocaine Screen,Urine Not Detected (NotDetected); Methadone Screen, Urine Not Detected (NotDetected); Opiate Screen,Urine Detected (NotDetected); Oxycodone Screen, Urine Detected (NotDetected); Phencyclidine Screen,Urine Not Detected (NotDetected); Tricyclic Antidepressant,Urine Not Detected (NotDetected); Urn Cannabinoid Scrn Not Detected (NotDetected)
[2020-09-18] MEDS: HYDROmorphone 1 MG/ML 1 ML SYRINGE IVP PRN ×2 (19:30→22:39)
[2020-09-18] MEDS: FAMOTIDINE 20 MG TAB PO SCH (21:26)
[2020-09-19] MEDS: HYDROmorphone 1 MG/ML 1 ML SYRINGE IVP PRN ×5 (02:02→20:52)
[2020-09-19] MEDS: traMADol 50 MG TAB PO PRN (03:17)
[2020-09-19] MEDS: FAMOTIDINE 20 MG TAB PO SCH ×2 (07:47→20:52)
--- NOTE | 2020-09-19 09:22 | P.HPOR ---
History of Present Illness H&P Date: 09/19/20 Chief Complaint: T9T10 vertebral body fracture, right knee pain, status post fall patient is a 80-year-old male who is a very, continue medical history and has had multiple hospital admissions over the last month. Patient reported to [facility] yesterday after falling at home. Patient was coming to the hospital for blood draw, he slipped and fell on some steps in his garage. He twisted his right knee is significantly and had immediate pain at the point of contact in his lower thoracic spine. EMS was contacted and they did bring the patient to the hospital. I was contacted by the emergency room staff regarding x-ray results and current symptoms. No acute fractures or dislocations are noted of the right knee or pelvis. Computed tomography scan of the lumbar spine demonstrated known multilevel degenerative changes but no acute fractures. Computed tomography scan of the thoracic spine did demonstrate fractures involving the T9 and T10 vertebral body. Patient has a recent history of a T10 kyphoplasty with biopsy that was done by Dr. Peters about 3 weeks ago. The fracture T10 did involve the cement that is in place. Initially I was jay ble to discuss the case my attending Dr. Cee, the ER doctor did discuss the case with Dr. Peters. No emergent surgery was determined, patient was then admitted under our orthopedic care. I was able to evaluate the patient yesterday in the emergency room, his was present at bedside. Patient has a history of lung cancer which he is followed by oncology. Patient was initially evaluated in the outpatient setting by Dr. Cee with regards to back pain, he had undergone initial imaging test which demonstrated multilevel degenerative changes throughout the thoracic and lumbar spine. Shortly after that visit he had reported to [facility] in early August 2020 with increasing pain in the lower thoracic spine. MRI was unobtainable due to his pacemaker and they are unable to accommodate a [facility]. Computed tomography scan of the lumbar spine and thoracic spine was then done again. Scans of the thoracic spine demonstrated a high likelihood of pathological fracture of T10 vertebral body, initial consult was placed for interventional radiology for biopsy of that region, this was unobtainable. Dr. Cee was then unavailable for further workup. Patient's symptoms and continue to worsen, Dr. Peters then was available for evaluation of the patient. A bone scan was ordered which did show increased uptake in the T10 through T12 region. He was then scheduled for a vertebral body biopsy along with kyphoplasty at T10. Biopsy did demonstrate metastatic non-small cell lung cancer in that region. Oncology began radiation treatment, he did receive 6 total treatments this did finished last week. During the last 3 weeks patient has been in a hospital in a few different occasions, his most recent stent was about a week long where he dealt with mainly pain control and constipation. He was discharged home 09/13/2020, and up into the fall was doing fairly well. He's been utilizing a LSO brace. Currently patient's symptoms are located in the lower thoracic region. It's very difficult for him to stand or even walk at this point. He also has significant pain involving the right knee. He has a history of bilateral total knee replacements. He states that after his right knee surgery, while in the hospital he did fall and injured that right knee. He then was taken back to surgery for either a patellar tendon or quad tendon repair. I do not have access to those operative reports. Patient is currently having no bowel or b ladder incontinence, he denies any genital or peroneal numbness or tingling. He denies any pain, numbness or tingling in the bilateral upper extremities. He denies any emre weakness of the bilateral lower extremity is. He does state since the radiation he has been quite tired. He denies any left lower extremity pain. He denies any acute lower lumbar pain or cervical pain. Patient currently denies any headaches, lightheadedness, chest pain, fever chills, abdominal pain, nausea vomiting. Review of Systems Constitutional: Reports as per [facility] Past Medical History Past Medical History: Atrial Fibrillation, Coronary Artery Disease (CAD), Cancer, Heart Failure, Hypertension, Myocardial Infarction (KS), Osteoarthritis (OA), Prostate Disorder, Respiratory Disorder Additional Past Medical History / Comment(s): Pt recently admtiited to [facility] on 08/22/20 with intractable low back pain with kyphoplasty T10 with biopsy (pt has not been given results/abnormal cat scan and pt told possible mets to bone. Pt recently in [facility] ER on 09/03/20 with constipation/colitis. 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 Last Myocardial Infarction Date:: mar 2018 History of Any Multi-Drug Resistant Organisms: None Reported Past Surgical History: Back Surgery, Heart Catheterization With Stent, Joint R eplacement, Orthopedic Surgery, Pacemaker Additional Past Surgical History / Comment(s): 08/2019 kyphoplasty/bx T10, 09/2019 bronch with bx/brushings/BAL, 2017 pacemaker, bilateral knee arthroscopies, bilateral total knee replacements, R knee surgery for patellar tendon tear, PCI with stents, colonoscopy, bilateral cataract removals. Past Anesthesia/Blood Transfusion Reactions: Motion Sickness Date of Last Stent Placement:: 03/23 Type of Cardiac Device: Permanent Pacemaker Device Placement Date:: 02/20 Past Psychological History: No Psychological Hx Reported Additional Psychological History / Comment(s): Pt resides with his spouse. He has a rollator walker which he is not using. Does use a cane prn. He has a bipap. Pt drives. Smoking Status: Former smoker Past Alcohol Use History: Rare Additional Past Alcohol Use History / Comment(s): Pt started smoking in 1953 and quit in 1977 Past Drug Use History: None Reported - Past Family History Sister(s) Family Medical History: Cancer Brother(s) Family Medical History: Cancer Additional Family Medical History / Comment(s): 3 brothers cancer Father Family Medical History: Coronary Artery Disease (CAD), CVA/TIA, Myocardial Infarction (KS) Additional Family Medical History / Comment(s): Father had TIAs and MIs. He between the ages of 62-68yrs from what pt believes was a KS Mother Family Medical History: Myocardial Infarction (KS) Additional Family Medical History / Comment(s): Mother of a KS at the age of 88yrs. Medications and Allergies Home Medications Medication Instructions Recorded Confirmed Type Aspirin 81 mg PO Q48H 11/27/16 09/18/20 History Multivitamins, Thera [Multivitamin 1 tab PO DAILY 11/27/16 09/18/20 History (formulary)] Furosemide [Lasix] 20 mg PO DAILY 02/19/18 09/18/20 History Tamsulosin [Flomax] 0.4 mg PO DAILY 02/19/18 09/18/20 History Spironolactone 25 mg PO DIRECTED 09/08/19 09/18/20 History Apixaban [Eliquis] 5 mg PO BID 08/22/20 09/18/20 History Cyclobenzaprine [Flexeril] 10 mg PO BID PRN 08/22/20 09/18/20 History carvediloL [Coreg] 3.125 mg PO BID 08/22/20 09/18/20 History Lactulose [Constulose] 10 gm PO DAILY PRN 09/05/20 09/18/20 History oxyCODONE ER [OxyCONTIN] 20 mg PO Q12HR 3 Days #6 tab 09/10/20 09/18/20 Rx ALPRAZolam [Xanax] 0.25 mg PO TID PRN #10 tab 09/12/20 09/18/20 Rx Magnesium Hydroxide [Milk of 2,400 mg PO BID PRN #360 ml 09/12/20 09/18/20 Rx Magnesia Concentrate] Pantoprazole [Protonix] 40 mg PO AC-BRKFST 30 Days #30 09/12/20 09/18/20 Rx tablet.dr Dalton [Senokot] 17.2 mg PO BID 30 Days #120 tab 09/12/20 09/18/20 Rx polyethylene glycoL 3350 [Miralax] 17 gm PO DAILY 30 Days #30 09/12/20 09/18/20 Rx powd.pack Dexamethasone [Decadron] See Taper PO DIRECTED 09/18/20 09/18/20 History Allergies Allergy/AdvReac Type Severity Reaction Status Date / Time hydrocodone [From Vicodin] AdvReac Hallucinati Verified 09/18/20 13:21 ons Navnbat-Ygi-Wix Reductase AdvReac MUSCLE PAIN Verified 09/18/20 13:21 Inhibitor Physical Examination Gen: AOx3, NAD VSS stable at this time Integument: No obvious open lesions or sores are present throughout the cervical, thoracic or lumbar spine. Notable effusion of the right knee, well-healed surgical scar over the anterior aspect of the bilateral knees. Palpation: Significant tenderness with palpation to the midline and paraspinal region of the lower thoracic spine. No tenderness with palpation of the midline and paraspinal region of the lumbar spine. No tenderness with palpation of the midline or paraspinal region of the cervical spine Pain with palpation along the medial joint line in the area of the MCL the right knee. He is nontender over the tibial tubercle, superiorly inferior pole of patella and lateral joint line. No obvious defect is appreciated with palpation over the quadriceps tendon or medial retinaculum. ROM: Patient can straight leg raise with the right lower extremity with minimal difficulty Patient can also flex the knee to about 90, this does reproduce some pain along the medial side Logroll maneuver of the hip reproduces no groin pain Hip flexion, knee flexion, knee extension, plantar flexion, dorsiflexion, EHL, FHL are intact of the bilateral lower extremities Range of motion of all major muscle groups in the bilateral upper extremities are intact Difficult to assess range of motion at the thoracic and lumbar spine due to discomfort Sensory Exam: Senory exam to light touch is intact C5-T1 Senosry exam to light touch is intact L2-S1 Motor: 5 out of 5 strength noted bilaterally with plantar flexion, dorsiflexion, EHL, FHL 34/5 strength noted with bilateral hip flexion, knee extension, knee flexion, likely due to pain from thoracic spine Reflexes: 2/4 in all UE and LE Negative Timothy's bilaterally Negative Babinski bilaterally Negative clonus bilaterally Special Test: Right knee: Anterior and posterior drawer demonstrates no obvious laxity, good endpoint felt with varus stress, slight laxity appreciated with valgus stress. Results - Labs Labs: Abnormal Lab Results - Last 24 Hours (Table) 09/18/20 09/18/20 09/18/20 Range/Units 11:06 11:21 11:21 WBC 17.9 H (3.8-10.6) k/uL Neutrophils # 16.9 H (1.3-7.7) k/uL Lymphocytes # 0.2 L (1.0-4.8) k/uL APTT 20.2 L (22.0-30.0) sec Sodium (137-145) mmol/L BUN (9-20) mg/dL Creatinine (0.66-1.25) mg/dL Glucose (74-99) mg/dL POC Glucose (mg/dL) 144 H (75-99) mg/dL Total Protein (6.3-8.2) g/dL Albumin (3.5-5.0) g/dL Urine Protein (Negative) Hyaline Casts (0-2) /lpf Urine Mucus (None) /hpf Urine Opiates Screen (NotDetected) Ur Oxycodone Screen (NotDetected) 09/18/20 09/18/20 Range/Units 11:21 11:21 WBC (3.8-10.6) k/uL Neutrophils # (1.3-7.7) k/uL Lymphocytes # (1.0-4.8) k/uL APTT (22.0-30.0) sec Sodium 135 L (137-145) mmol/L BUN 28 H (9-20) mg/dL Creatinine 0.62 L (0.66-1.25) mg/dL Glucose 160 H (74-99) mg/dL POC Glucose (mg/dL) (75-99) mg/dL Total Protein 5.8 L (6.3-8.2) g/dL Albumin 3.4 L (3.5-5.0) g/dL Urine Protein 1+ H (Negative) Hyaline Casts 3 H (0-2) /lpf Urine Mucus Rare H (None) /hpf Urine Opiates Screen Detected H (NotDetected) Ur Oxycodone Screen Detected H (NotDetected) H & H 09/18/20 Range/Units 11:21 Hgb 16.5 (13.0-17.5) gm/dL Hct 50.4 (39.0-53.0) % Coagulation 09/18/20 Range/Units 11: INR 1.0 (<1.2) Result Diagrams: 09/18/20 11:21 09/18/20 11:21 - Diagnostic results Hip x-ray: report reviewed, image reviewed (Pelvis x-rays demonstrated no acute fractures or dislocations, obvious osteoarthritic changes of the bilateral hips including joint space loss and subchondral sclerosis) Knee x-ray: report reviewed, image reviewed (No obvious acute fractures or dislocations are appreciated. Total knee arthroplasty components appear in stable condition, no obvious lucencies.) CT Scan - lumbar: report reviewed, image reviewed (Report and images of lumbar CT were reviewed. Images demonstrated no acute fractures or dislocations. Multilevel spondylosis. Computed tomography scan of thoracic spine demonstrated chance fx of T9 vetebral body and a cathy implant fx of the T10 vetebral body) Assessment and Plan Assessment: Cathy implant fracture T9 vertebral body Chance fracture T10 vertebral body Right knee MCL sprain Multilevel lumbar spine spondylosis/facet arthropathy History of right total knee arthroplasty, stable appearing components Status post fall from standing History of recent T10 vertebral body kyphoplasty with biopsy confirming non- small cell lung cancer History of lung cancer Multiple medical comorbidities Plan: Dr. Cee was available today at bedside to discuss current diagnosis and t reatment options. On the nonsurgical aspect, there is the option of bracing with a TLSO. Patient has an LSO brace at this time which is not adequate. I will be discussing with case management for getting him the proper TLSO brace. With regards to surgical treatment, we discussed the possibility of a minimally invasive percutaneous fixation of the thoracic fracture T6-L1. With the patient's current diagnosis is and multiple medical comorbidities, we understand he is a high risk for this procedure. Consults will be placed for internal medicine, oncology, cardiology and pulmonology to help prepare for this possible treatment approach. With regards to the right knee, an IROM brace has been ordered. Patient will utilize this went up and ambulating. Continue to ice and elevate the right knee symptomatic treatment Patient will need the TLSO brace when up and ambulating, again I will be working with case management to help facilitate this. Pain control, continue his current regimen DVT prophylaxis, he can continue to utilize Eliquis at this time. This may be discontinued in the near future if we are planning for surgery. After proper bracing of both the thoracic and lumbar spine along with knee, he can weight-bear as tolerated with walker Patient will discuss the treatment options with his , he was notified that we would be available at any time to discuss these options once again. We will await other medical specialty recommendations for outline treatment options. Time with Patient: Less than 30
[2020-09-19] MEDS ORDERED: LACTULOSE 20 GM/30 ML CUP PO PRN (09:51)
[2020-09-19] MEDS ORDERED: polyethylene glycoL 3350 17 GM POWD.PACK PO PRN (09:57)
[2020-09-19] MEDS ORDERED: oxyCODONE ER 20 MG TAB.ER.12H PO SCH (10:00)
[2020-09-19] MEDS: KETOROLAC 15 MG/ML 1 ML VIAL IVP PRN ×2 (10:30→16:06)
[2020-09-19] MEDS: carvediloL 3.125 MG TAB PO SCH ×2 (10:31→17:10)
[2020-09-19] MEDS: PANTOPRAZOLE 40 MG TABLET PO SCH (10:31)
[2020-09-19] MEDS: APIXABAN 5 MG TAB PO SCH ×2 (11:13→20:52)
--- NOTE | 2020-09-19 14:27 | P.CNPUL ---
History of Present Illness Consult date: 09/19/20 Requesting physician: Carlos Cee Reason for consult: other (Preop clearance) Chief complaint: Back pain History of present illness: This is a very pleasant 80-year-old gentleman who follows with Dr. Rodriguez is his primary care provider. He has a history of coronary artery disease with prev ious stent placements, atrial fibrillation and previous pacemaker insertion, hypertension, congestive heart failure. He has a history of lung cancer diagnosed in September 2019 with a left upper lobe mass status post radiation. He has obstructive sleep apnea utilizing BiPAP in the outpatient setting. 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 He was just discharged home on 09/13/2020. He had received a total of 6 radiation treatments to his spine. Yesterday he presented to the emergency room after sustaining a fall down 3-4 steps at home. X-rays revealed multiple acute fracture lines involving the T9 and T10 vertebral bodies through the site of previous vertebral plasty in the vertebral body just above. The plan is for possible minimally invasive percutaneous fixation of the thoracic fractures once cleared medically. We are consulted for pulmonary clearance. The patient does follow with Dr. Watts in our office for the squamous cell carcinoma involving the left upper lobe. Has has a history of multiple pulmonary nodules present for over 5 years related to old granulomatous disease or sarcoid. No change in configuration her size. Most recent pulmonary function testing revealed an FEV1 value of 1.97 L. MVV of 91 and RV/TLC of 48. Findings were would indicate no increased risk of surgery from the pulmonary standpoint. The patient is seen today in consultation on the regular medical floor. He is currently laying flat in bed. Awake and alert. He is in moderate discomfort regarding his fractures of the back. He is maintaining good O2 saturations in the mid 90s on room air. He's been afebrile. White count 17.9. Hemoglobin 16.5. Sodium 135. Potassium 4.6. Creatinine 0.62. Urine drug screen positive for opiates and oxycodone. Serum alcohol level less than 10. Coronavirus not detected. Chest x-ray revealed right upper lobe mass measuring 1.6 cm. Left-sided pulmonary nodules and masses are also seen with areas of consolidation left perihilar and left upper lobe similar to previous exam of 09/06/2020. No pleural effusion. No pneumothorax. Review of Systems REVIEW OF SYSTEMS: CONSTITUTIONAL: Denies any recent significant weight loss or weight gain. EYES: Denies change in vision. EARS, NOSE, MOUTH, THROAT: Denies headaches, denies sore throat. CARDIOVASCULAR: Denies chest pain, palpitations or syncopal episodes. RESPIRATORY: Denies shortness of breath, cough, congestion or hemoptysis. GASTROINTESTINAL: Denies change in appetite, denies abdominal pain GENITOURINARY: Denies hematuria, denies infections. MUSKULOSKELETAL: Positive for moderate to severe back pain INTEGUMENTARY: Denies rash, denies eczema. NEUROLOGICAL: Denies recent memory loss, no recent seizure activity. PSYCHIATRIC: Denies anxiety, denies depression. HEMATOLOGIC/LYMPHATIC: Denies anemia, denies enlarged lymph nodes. Past Medical History Past Medical History: Atrial Fibrillation, Coronary Artery Disease (CAD), Cancer, Heart Failure, Hypertension, Myocardial Infarction ([place]), Osteoarthritis (OA), Prostate Disorder, Respiratory Disorder Additional Past Medical History / Comment(s): Pt recently admtiited to [facility] on 08/22/20 with intractable low back pain with kyphoplasty T10 with biopsy (pt has not been given results/abnormal cat scan and pt told possible mets to bone. Pt recently in [facility] ER on 09/03/20 with constipation/colitis. 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 and was on Rocephin for 6 weeks in 2012-pt and spouse cannot recall if it was MRSA, BPH, large kidney stone pt was told he would never be able to pass-cannot recall laterallity. Last Myocardial Infarction Date:: mar 2018 History of Any Multi-Drug Resistant Organisms: None Reported Past Surgical History: Back Surgery, Heart Catheterization With Stent, Joint Replacement, Orthopedic Surgery, Pacemaker Additional Past Surgical History / Comment(s): 08/2019 kyphoplasty/bx T10, 09/2019 bronch with bx/brushings/BAL, 2018 pacemaker, bilateral knee arthroscopies, bilateral total knee replacements, R knee surgery for patellar tendon tear, PCI with stents, colonoscopy, bilateral cataract removals. Past Anesthesia/Blood Transfusion Reactions: Motion Sickness Date of Last Stent Placement:: 03/23 Type of Cardiac Device: Permanent Pacemaker Device Placement Date:: 02/20 Past Psychological History: No Psychological Hx Reported Additional Psychological History / Comment(s): Pt resides with his spouse. He has a rollator walker which he is not using. Does use a cane prn. He has a bipap. Pt drives. Smoking Status: Former smoker Past Alcohol Use History: Rare Additional Past Alcohol Use History / Comment(s): Pt started smoking in 1952 and quit in 1977 Past Drug Use History: None Reported - Past Family History Sister(s) Family Medical History: Cancer Brother(s) Family Medical History: Cancer Additional Family Medical History / Comment(s): 3 brothers cancer Father Family Medical History: Coronary Artery Disease (CAD), CVA/TIA, Myocardial Infarction ([place]) Additional Family Medical History / Comment(s): Father had TIAs and MIs. He between the ages of 62-68yrs from what pt believes was a [place] Mother Family Medical History: Myocardial Infarction ([place]) Additional Family Medical History / Comment(s): Mother of a [place] at the age of 88yrs. Medications and Allergies Home Medications Medication Instructions Recorded Confirmed Type Aspirin 81 mg PO Q48H 11/27/16 09/18/20 History Multivitamins, Thera [Multivitamin 1 tab PO DAILY 11/27/16 09/18/20 History (formulary)] Furosemide [Lasix] 20 mg PO DAILY 02/19/18 09/18/20 History Tamsulosin [Flomax] 0.4 mg PO DAILY 02/19/18 09/18/20 History Spironolactone 25 mg PO DIRECTED 09/08/19 09/18/20 History Apixaban [Eliquis] 5 mg PO BID 08/22/20 09/18/20 History Cyclobenzaprine [Flexeril] 10 mg PO BID PRN 08/22/20 09/18/20 History carvediloL [Coreg] 3.125 mg PO BID 08/22/20 09/18/20 History Lactulose [Constulose] 10 gm PO DAILY PRN 09/05/20 09/18/20 History oxyCODONE ER [OxyCONTIN] 20 mg PO Q12HR 3 Days #6 tab 09/10/20 09/18/20 Rx ALPRAZolam [Xanax] 0.25 mg PO TID PRN #10 tab 09/12/20 09/18/20 Rx Magnesium Hydroxide [Milk of 2,400 mg PO BID PRN #360 ml 09/12/20 09/18/20 Rx Magnesia Concentrate] Pantoprazole [Protonix] 40 mg PO AC-BRKFST 30 Days #30 09/12/20 09/18/20 Rx tablet. Sennosidebell [Senokot] 17.2 mg PO BID 30 Days #120 tab 09/12/20 09/18/20 Rx polyethylene glycoL 3350 [Miralax] 17 gm PO DAILY 30 Days #30 09/12/20 09/18/20 Rx powd.pack Dexamethasone [Decadron] See Taper PO DIRECTED 09/18/20 09/18/20 History Allergies Allergy/AdvReac Type Severity Reaction Status Date / Time hydrocodone [From Vicodin] AdvReac Hallucinati Verified 09/18/20 13:21 ons Gnluneb-Ume-Lmp Reductase AdvReac MUSCLE PAIN Verified 09/18/20 13:21 Inhibitor Physical Exam Vitals: Vital Signs Temp Pulse Pulse Resp BP BP Pulse Ox 09/19/20 07:25 97.4 F L 78 18 159/101 95 09/19/20 05:04 69 143/93 09/19/20 03:10 97.5 F L 69 18 156/102 93 L 09/18/20 20:30 97.4 F L 74 18 155/98 94 L 09/18/20 20:14 97.6 F 79 18 145/107 94 L 09/18/20 16:25 97.4 F L 80 18 167/100 97 Intake and Output 09/18/20 09/19/20 09/19/20 22:59 06:59 14:59 Intake Total 240 Balance 240 Intake: Oral 240 Other: Voiding Method Urinal Urinal Weight 131.542 kg GENERAL EXAM: Alert, pleasant 80-year-old gentleman, on room air, currently moderately uncomfortable due to back pain. HEAD: Normocephalic. EYES: Normal reaction of pupils, equal size. NOSE: Clear with pink turbinates. THROAT: No erythema or exudates. NECK: No masses, no JVD. CHEST: No chest wall deformity. LUNGS: Equal air entry with no crackles, wheeze, rhonchi or dullness. CVS: S1 and S2 normal with no audible murmur, regular rhythm. ABDOMEN: No hepatosplenomegaly, normal bowel sounds, no guarding or rigidity. SPINE: Recent surgery incisions clean dry well approximated SKIN: No rashes CENTRAL NERVOUS SYSTEM: No focal deficits, tone is normal in all 4 extremities. EXTREMITIES: Some edema of the right knee. There is no peripheral edema. No clubbing, no cyanosis. Peripheral pulses are intact. Results - Laboratory Findings CBC and BMP: 09/18/20 11:21 09/18/20 11:21 PT/INR, D-dimer PT 10.8 sec (9.0-12.0) 09/18/20 11:21 INR 1.0 (<1.2) 09/18/20 11:21 Abnormal lab findings: Abnormal Labs 09/18/20 09/18/20 09/18/20 11:06 11:21 11:21 WBC 17.9 H Neutrophils # 16.9 H Lymphocytes # 0.2 L APTT 20.2 L Sodium BUN Creatinine Glucose POC Glucose (mg/dL) 144 H Total Protein Albumin Urine Protein Hyaline Casts Urine Mucus Urine Opiates Screen Ur Oxycodone Screen 09/18/20 09/18/20 11:21 11:21 WBC Neutrophils # Lymphocytes # APTT Sodium 135 L BUN 28 H Creatinine 0.62 L Glucose 160 H POC Glucose (mg/dL) Total Protein 5.8 L Albumin 3.4 L Urine Protein 1+ H Hyaline Casts 3 H Urine Mucus Rare H Urine Opiates Screen Detected H Ur Oxycodone Screen Detected H - Diagnostic Findings Chest x-ray: image reviewed Assessment and Plan Assessment: 1 New niurka implant fracture T9 vertebral body, chance fracture T10 vertebral body 2 Right knee sprain without fracture 3 Metastatic 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 with subsequent radiation 4 Squamous cell carcinoma the lung, stage IV 5 Recent kyphoplasty for pathologic fracture of vertebral body T10 6 History of multiple pulmonary nodules present for greater than 5 years suspected old granulomatous disease versus sarcoid, no changes 7 History of chronic atrial fibrillation, status post permanent pacemaker implantation 8 Obesity hypoventilation syndrome/obstructive sleep apnea, on BiPAP in the outpatient setting 9 Hypertension 10 Morbid obesity 11 History of coronary artery disease with previous stent placement 12 Former smoker Plan: The patient was seen and evaluated by Dr. Kamara Chest x-ray, labs reviewed Office chart and PFTs reviewed There is no increased risk of surgery from the pulmonary standpoint We'll continue to follow and make further recommendations based on his clinical status I, the cosigning physician, performed a history & physical examination of the patient. Lungs sounds are clear. Maintaining good O2 saturations in the 90s on room air. I discussed the assessment and plan of care with my nurse practitioner, Albertina Mehta. I attest to the above consultation as dictated by her. Time with Patient: Greater than 30
--- NOTE | 2020-09-19 15:35 | P.CONS ---
History of Present Illness - Reason for Consult Metastatic lung cancer, preoperative clearance - History of Present Illness 80-year-old pleasant male fairly functional before his severe back pain secondary to metastatic lung cancer. Patient is admitted secondary to fall found to have fracture of the T9 vertebral body. Orthotic surgery evaluation there are planning on stimulation his surgery for this vertebral body. Patient appears to have a pathological fracture patient is also found to have right knee strain without any fracture and knee effusion. Patient had multiple hospital physicians recently for severe back pain for which patient had a biopsy which showed metastatic metastatic non-small cell lung cancer for which patient is presently receiving radiation therapy patient had a recent kyphoplasty of pathological fracture of T10 vertebral body. Patient is a well-known and very pleasant gentleman does have some medical problems including obesity hypoventilation syndrome and sleep apnea. Review of Systems REVIEW OF SYSTEMS: CONSTITUTIONAL: No fever, no malaise, no fatigue. HEENT: No recent visual problems or hearing problems. Denied any sore throat. CARDIOVASCULAR: No chest pain, orthopnea, PND, no palpitations, no syncope. PULMONARY: As mentioned in HPI GASTROINTESTINAL: No diarrhea, no nausea, no vomiting, no abdominal pain. NEUROLOGICAL: No headaches, no weakness, no numbness. HEMATOLOGICAL: Denies any bleeding or petechiae. GENITOURINARY: Denies any burning micturition, frequency, or urgency. MUSCULOSKELETAL/RHEUMATOLOGICAL: As mentioned in HPI ENDOCRINE: Denies any polyuria or polydipsia. The rest of the 14-point review of systems is negative. Past Medical History Past Medical History: Atrial Fibrillation, Coronary Artery Disease (CAD), Cancer, Heart Failure, Hypertension, Myocardial Infarction ([place]), Osteoarthritis ([place]), Prostate Disorder, Respiratory Disorder Additional Past Medical History / Comment(s): Pt recently admtiited to [facility] on 08/22/20 with intractable low back pain with kyphoplasty T10 with biopsy (pt has not been given results/abnormal cat scan and pt told possible mets to bone. Pt recently in [facility] ER on 09/03/20 with constipation/colitis. Other hx: Bilateral lungs necrotizing granulomas diagnosed in [address] scan every 4- 6 mo [facility] and is followed by Dr. 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 Last Myocardial Infarction Date:: mar 2018 History of Any Multi-Drug Resistant Organisms: None Reported Past Surgical History: Back Surgery, Heart Catheterization With Stent, Joint Replacement, Orthopedic Surgery, Pacemaker Additional Past Surgical History / Comment(s): 08/2019 kyphoplasty/bx T10, 09/2019 bronch with bx/brushings/BAL, 2017 pacemaker, bilateral knee arthroscopies, bilateral total knee replacements, R knee surgery for patellar tendon tear, PCI with stents, colonoscopy, bilateral cataract removals. Past Anesthesia/Blood Transfusion Reactions: Motion Sickness Date of Last Stent Placement:: 03/23 Type of Cardiac Device: Permanent Pacemaker Device Placement Date:: 02/20 Past Psychological History: No Psychological Hx Reported Additional Psychological History / Comment(s): Pt resides with his spouse. He has a rollator walker which he is not using. Does use a cane prn. He has a bipap. Pt drives. Smoking Status: Former smoker Past Alcohol Use History: Rare Additional Past Alcohol Use History / Comment(s): Pt started smoking in 5 and quit in 1977 Past Drug Use History: None Reported - Past Family History Sister(s) Family Medical History: Cancer Brother(s) Family Medical History: Cancer Additional Family Medical History / Comment(s): 3 brothers cancer Father Family Medical History: Coronary Artery Disease (CAD), CVA/TIA, Myocardial Infarction ([place]) Additional Family Medical History / Comment(s): Father had TIAs and MIs. He between the ages of 62-68yrs from what pt believes was a [place] Mother Family Medical History: Myocardial Infarction ([place]) Additional Family Medical History / Comment(s): Mother of a [place] at the age of 88yrs. Medications and Allergies Home Medications Medication Instructions Recorded Confirmed Type Aspirin 81 mg PO Q48H 11/27/16 09/18/20 History Multivitamins, Thera [Multivitamin 1 tab PO DAILY 11/27/16 09/18/20 History (formulary)] Furosemide [Lasix] 20 mg PO DAILY 02/19/18 09/18/20 History Tamsulosin [Flomax] 0.4 mg PO DAILY 02/19/18 09/18/20 History Spironolactone 25 mg PO DIRECTED 09/08/19 09/18/20 History Apixaban [Eliquis] 5 mg PO BID 08/22/20 09/18/20 History Cyclobenzaprine [Flexeril] 10 mg PO BID PRN 08/22/20 09/18/20 History carvediloL [Coreg] 3.125 mg PO BID 08/22/20 09/18/20 History Lactulose [Constulose] 10 gm PO DAILY PRN 09/05/20 09/18/20 History oxyCODONE ER [OxyCONTIN] 20 mg PO Q12HR 3 Days #6 tab 09/10/20 09/18/20 Rx ALPRAZolam [Xanax] 0.25 mg PO TID PRN #10 tab 09/12/20 09/18/20 Rx Magnesium Hydroxide [Milk of 2,400 mg PO BID PRN #360 ml 09/12/20 09/18/20 Rx Magnesia Concentrate] Pantoprazole [Protonix] 40 mg PO AC-BRKFST 30 Days #30 09/12/20 09/18/20 Rx tablet. Sennosides [Senokot] 17.2 mg PO BID 30 Days #120 tab 09/12/20 09/18/20 Rx polyethylene glycoL 3350 [Miralax] 17 gm PO DAILY 30 Days #30 09/12/20 09/18/20 Rx powd.pack Dexamethasone [Decadron] See Taper PO DIRECTED 09/18/20 09/18/20 History Allergies Allergy/AdvReac Type Severity Reaction Status Date / Time hydrocodone [From Vicodin] AdvReac Hallucinati Verified 09/18/20 13:21 ons Zclshye-Nrz-Msy Reductase AdvReac MUSCLE PAIN Verified 09/18/20 13:21 Inhibitor Physical Exam Vitals: Vital Signs Temp Pulse Pulse Resp BP BP Pulse Ox 09/19/20 07:25 97.4 F L 78 18 159/101 95 09/19/20 05:04 69 143/93 09/19/20 03:10 97.5 F L 69 18 156/102 93 L 09/18/20 20:30 97.4 F L 74 18 155/98 94 L 09/18/20 20:14 97.6 F 79 18 145/107 94 L 09/18/20 16:25 97.4 F L 80 18 167/100 97 Intake and Output 09/19/20 09/19/20 09/19/20 06:59 14:59 22:59 Intake Total 240 Balance 240 Intake: Oral 240 Other: Voiding Method Urinal PHYSICAL EXAMINATION: GENERAL: The patient is alert and oriented x3, not in any acute distress. Well developed, well nourished. HEENT: Pupils are round and equally reacting to light. EOMI. No scleral icterus. No conjunctival pallor. Normocephalic, atraumatic. No pharyngeal erythema. No thyromegaly. CARDIOVASCULAR: S1 and S2 present. No murmurs, rubs, or gallops. PULMONARY: Chest is clear to auscultation, no wheezing or crackles. ABDOMEN: Soft, nontender, nondistended, normoactive bowel sounds. No palpable organomegaly. MUSCULOSKELETAL: Deferred to orthopedic surgery EXTREMITIES: No cyanosis, clubbing, or pedal edema. NEUROLOGICAL: Gross neurological examination did not reveal any focal deficits. SKIN: No rashes. Results CBC & Chem 7: 09/18/20 11:21 09/18/20 11:21 Labs: Abnormal Lab Results - Last 24 Hours (Table) 09/18/20 Range/Units 11:21 Urine Protein 1+ H (Negative) Hyaline Casts 3 H (0-2) /lpf Urine Mucus Rare H (None) /hpf Urine Opiates Screen Detected H (NotDetected) Ur Oxycodone Screen Detected H (NotDetected) Assessment and Plan Plan: - T9 vertebral body fracture fracture: Patient is a low operative risk for this surgery. 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 fib patient is presently rate and rate controlled patient does have a pacemaker. Patient is on Eliquis which will be resumed -Hypertension -Obesity -Coronary artery disease For above-mentioned chronic medical problems patient will be resumed on appropriate home medications
--- NOTE | 2020-09-19 17:16 | P.CONS ---
History of Present Illness - Reason for Consult Consult date: 09/19/20 Metastatic Cancer Requesting physician: Alpesh Calderón - Chief Complaint pain - History of Present Illness De is a patient of Dr. Huan Garcia who was diagnosed with Stage 2, NSCLCA in 2019. He underwent definitive radaition therapy at that time. He originally presented to Dr Rodriguez, his PCP with C/O progressive SOB X 2 months and dry cough X 3 weeks. Denied any chest or skeletal pain, no anorexia or weight loss. CXR was suggestive of Pulmonary nodules, had CT Scan of chest revealing numerous bilateral pulmonary nodules of variable sizes. No mediastinal Lymphadenopathy or dominant lung tumors. Had CT Scan of abdomen/Pelvis which were mostly negative. De smoked 2 PPD X 20 years, quit smoking 30 years ago. No known primary malignacies in past. He had CT-Guided Lung nodule Bx at [facility] : Necritizing Granuloma, no malignancy seen. 09/27/19: He had recent CO poisoning > CXR revealed large YOLIS lesion, CT Scan revealed 4.6cm YOLIS suspicious mass, PET Scan revealed solitary lesion (SUV 34). Hs stable pulmonary nodules C/W Granulomas. The patient had bronchoscopy by Dr Watts on 09/12/19 revealing poorly- differentiated NSCLC, C/W Squamous cell carcinoma. Completed definitive radiation therapy and did not follow-up as recommended with medical oncology following this. 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 He was just discharged home on 09/13/2020. Radiation oncology was following and he received a total of 6 radiation treatments to his spine. On 09/18/20 he represented after sustaining a fall down 3-4 steps at home. X-rays revealed multiple acute fracture lines involving the T9 and T10 vertebral bodies through the site of previous vertebral plasty in the vertebral body just above. The plan is for possible minimally invasive percutaneous fixation of the thoracic fractures once cleared medically. We are consulted for Oncology Clearance clearance. Review of Systems All systems: negative Constitutional: Reports as per HPI Past Medical History Past Medical History: Atrial Fibrillation, Coronary Artery Disease (CAD), Cancer, Heart Failure, Hypertension, Myocardial Infarction ([place]), Osteoarthritis (OA), Prostate Disorder, Respiratory Disorder Additional Past Medical History / Comment(s): Pt recently admtiited to [facility] on 08/22/20 with intractable low back pain with kyphoplasty T10 with biopsy (pt has not been given results/abnormal cat scan and pt told possible mets to bone. Pt recently in [facility] ER on 09/03/20 with constipation/colitis. 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 Last Myocardial Infarction Date:: mar 2018 History of Any Multi-Drug Resistant Organisms: None Reported Past Surgical History: Back Surgery, Heart Catheterization With Stent, Joint Replacement, Orthopedic Surgery, Pacemaker Additional Past Surgical History / Comment(s): 08/2019 kyphoplasty/bx T10, 09/2019 bronch with bx/brushings/BAL, 2017 pacemaker, bilateral knee arthroscopies, bilateral total knee replacements, R knee surgery for patellar tendon tear, PCI with stents, colonoscopy, bilateral cataract removals. Past Anesthesia/Blood Transfusion Reactions: Motion Sickness Date of Last Stent Placement:: 03/23 Type of Cardiac Device: Permanent Pacemaker Device Placement Date:: 02/20 Past Psychological History: No Psychological Hx Reported Additional Psychological History / Comment(s): Pt resides with his spouse. He has a rollator walker which he is not using. Does use a cane prn. He has a bipap. Pt drives. Smoking Status: Former smoker Past Alcohol Use History: Rare Additional Past Alcohol Use History / Comment(s): Pt started smoking in 1953 and quit in 1977 Past Drug Use History: None Reported - Past Family History Sister(s) Family Medical History: Cancer Brother(s) Family Medical History: Cancer Additional Family Medical History / Comment(s): 3 brothers cancer Father Family Medical History: Coronary Artery Disease (CAD), CVA/TIA, Myocardial Infarction ([place]) Additional Family Medical History / Comment(s): Father had TIAs and MIs. He between the ages of 62-68yrs from what pt believes was a [place] Mother Family Medical History: Myocardial Infarction ([place]) Additional Family Medical History / Comment(s): Mother of a [place] at the age of 88yrs. Medications and Allergies Home Medications Medication Instructions Recorded Confirmed Type Aspirin 81 mg PO Q48H 11/27/16 09/18/20 History Multivitamins, Thera [Multivitamin 1 tab PO DAILY 11/27/16 09/18/20 History (formulary)] Furosemide [Lasix] 20 mg PO DAILY 02/19/18 09/18/20 History Tamsulosin [Flomax] 0.4 mg PO DAILY 02/19/18 09/18/20 History Spironolactone 25 mg PO DIRECTED 09/08/19 09/18/20 History Apixaban [Eliquis] 5 mg PO BID 08/22/20 09/18/20 History Cyclobenzaprine [Flexeril] 10 mg PO BID PRN 08/22/20 09/18/20 History carvediloL [Coreg] 3.125 mg PO BID 08/22/20 09/18/20 History Lactulose [Constulose] 10 gm PO DAILY PRN 09/05/20 09/18/20 History oxyCODONE ER [OxyCONTIN] 20 mg PO Q12HR 3 Days #6 tab 09/10/20 09/18/20 Rx ALPRAZolam [Xanax] 0.25 mg PO TID PRN #10 tab 09/12/20 09/18/20 Rx Magnesium Hydroxide [Milk of 2,400 mg PO BID PRN #360 ml 09/12/20 09/18/20 Rx Magnesia Concentrate] Pantoprazole [Protonix] 40 mg PO AC-BRKFST 30 Days #30 09/12/20 09/18/20 Rx tablet. Sennosidebell [Senokot] 17.2 mg PO BID 30 Days #120 tab 09/12/20 09/18/20 Rx polyethylene glycoL 3350 [Miralax] 17 gm PO DAILY 30 Days #30 09/12/20 09/18/20 Rx powd.pack Dexamethasone [Decadron] See Taper PO DIRECTED 09/18/20 09/18/20 History Allergies Allergy/AdvReac Type Severity Reaction Status Date / Time hydrocodone [From Vicodin] AdvReac Hallucinati Verified 09/18/20 13:21 ons Xkrpqmm-Xht-Ozw Reductase AdvReac MUSCLE PAIN Verified 09/18/20 13:21 Inhibitor Physical Exam Vitals: Vital Signs Temp Pulse Pulse Pulse Resp BP BP 09/19/20 14:13 97.7 F 63 18 156/93 09/19/20 07:25 97.4 F L 78 18 159/101 09/19/20 05:04 69 143/93 09/19/20 03:10 97.5 F L 69 18 156/102 09/18/20 20:30 97.4 F L 74 18 155/98 09/18/20 20:14 97.6 F 79 18 145/107 Pulse Ox 09/19/20 14:13 94 L 09/19/20 07:25 95 09/19/20 05:04 09/19/20 03:10 93 L 09/18/20 20:30 94 L 09/18/20 20:14 94 L Intake and Output 09/19/20 09/19/20 09/19/20 06:59 14:59 22:59 Intake Total 240 Balance 240 Intake: Oral 240 Other: Voiding Method Urinal - Constitutional General appearance: cooperative, no acute distress - EENT Eyes: EOMI, PERRLA ENT: hard of hearing, NA/AT - Neck Neck: normal ROM - Respiratory Respiratory: bilateral: diminished - Cardiovascular Rhythm: regular leg Peripheral Edema: bilateral: 2+ - Gastrointestinal General gastrointestinal: soft - Integumentary Integumentary: pale - Neurologic RYAN due to pain - Musculoskeletal Musculoskeletal: generalized weakness - Psychiatric Psychiatric: A&O x's 3 Results CBC & Chem 7: 09/18/20 11:21 09/18/20 11:21 Labs: Abnormal Lab Results - Last 24 Hours (Table) 09/18/20 Range/Units 11:21 Urine Protein 1+ H (Negative) Hyaline Casts 3 H (0-2) /lpf Urine Mucus Rare H (None) /hpf Urine Opiates Screen Detected H (NotDetected) Ur Oxycodone Screen Detected H (NotDetected) Assessment and Plan Plan: Assessment and Recommendations: Recurrent Non-Small Cell Lung Ca: With recent progression to bone/spine - Status post radiation therapy - Will send path for molecular NGS Recent Fall with Multiple pathological fractures: - Cleared from oncology standpoint for surgery. Physician attest: I have completed the full history and physical and agree with above dication, dictated as a scribe.
[2020-09-19] MEDS: ONDANSETRON 4 MG/2 ML VIAL IVP PRN (19:21)
[2020-09-19] MEDS: SENNOSIDES 8.6 MG TAB PO SCH (20:52)
[2020-09-20] MEDS: HYDROmorphone 1 MG/ML 1 ML SYRINGE IVP PRN ×5 (02:02→21:06)
[2020-09-20] MEDS: SENNOSIDES 8.6 MG TAB PO SCH ×2 (07:25→21:09)
[2020-09-20] MEDS: FAMOTIDINE 20 MG TAB PO SCH ×2 (07:25→21:09)
[2020-09-20] MEDS: carvediloL 3.125 MG TAB PO SCH ×2 (07:25→18:02)
[2020-09-20] MEDS: PANTOPRAZOLE 40 MG TABLET PO SCH (07:25)
--- NOTE | 2020-09-20 07:32 | ECHOF ---
Referral Reason:cardiac clearance MEASUREMENTS -------- HEIGHT: 180.3 cm WEIGHT: 131.5 kg BP: 159/101 RVIDd: 3.3 cm (< 3.3) IVSd: 1.4 cm (0.6 - 1.1) LVIDd: 5.5 cm (3.9 - 5.3) LVPWd: 1.5 cm (0.6 - 1.1) IVSs: 1.8 cm LVIDs: 3.2 cm LVPWs: 1.9 cm LA Diam: 4.6 cm (2.7 - 3.8) LAESV Index (A-L): 40.57 ml/m Ao Diam: 4.4 cm (2.0 - 3.7) AV Cusp: 2.3 cm (1.5 - 2.6) MV EXCURSION: 9.957 mm (> 18.000) MV EF SLOPE: 53 mm/s (70 - 150) EPSS: 1.0 cm FINDINGS -------- Atrial fibrillation. This was a technically difficult study with suboptimal views. The left ventricular size is normal. There is moderate concentric left ventricular hypertrophy. O verall left ventricular systolic function is low-normal with, an EF between 50 - 55 %. The right ventricle is mildly enlarged. The left atrium is markedly dilated. The right atrium is normal in size. Lumason used The aortic valve is trileaflet and appears structurally normal. The mitral valve is normal. The tricuspid valve appears structurally normal. Trace/mild (physiologic) pulmonic regurgitation. The aortic root is dilated measuring 4.4cm. Normal inferior vena cava with normal inspiratory collapse consistent with estimated right atrial pre ssure of 5 mmHg. There is no pericardial effusion. CONCLUSIONS -------- 1. The left ventricular size is normal. 2. There is moderate concentric left ventricular hypertrophy. 3. Overall left ventricular systolic function is low-normal with, an EF between 50 - 55 %. 4. The right ventricle is mildly enlarged. 5. The left atrium is markedly dilated. 6. Lumason used 7. Trace/mild (physiologic) pulmonic regurgitation. 8. The aortic root is dilated measuring 4.4cm. 9. There is no pericardial effusion. LEARNING CENTER COORDINATOR: Cynthia Levine [facility]
[2020-09-20] MEDS: APIXABAN 5 MG TAB PO SCH ×2 (09:04→21:09)
--- NOTE | 2020-09-20 09:45 | P.PN ---
Subjective Progress Note Date: 09/20/20 Patient seen and examined this morning. He has not been out of bed. TLSO was delivered yesterday. Denies any fevers chills shortness of breath or chest pain. He denies any weakness in his lower extremities he denies any heavy feeling. He does complain of a heavy feeling on his got in his stomach however around his bellybutton. He denies any perineal numbness or tingling. He has not had a recent bowel movement he has been impeding appropriately. Knee immobilizer which does help with his pain as well as ice. He denies any fevers chills shortness of breath or chest pain at this time. Pulmonology cardiology medicine and oncology notes reviewed and appreciated Objective - Vital Signs Vital signs: Vital Signs Temp 97.8 F 09/20/20 07:08 Pulse 81 09/20/20 07:08 Resp 18 09/20/20 07:08 BP 163/97 09/20/20 07:08 Pulse Ox 95 09/20/20 07:08 Intake & Output 09/19/20 09/20/20 09/20/20 18:59 06:59 18:59 Output Total 800 Balance -800 Output: Urine 800 Other: Voiding Method Urinal # Voids 2 - Exam Exam stable at this time - Constitutional General appearance: Present: morbidly obese - EENT Eyes: Present: EOMI - Labs CBC & Chem 7: 09/18/20 11:21 09/18/20 11:21 Assessment and Plan Assessment: 1. T9 and T10 acute split-type fractures, chance-type fractures no posterior column involvement evident 2. Status post T10 kyphoplasty 3. Status post fall from standing 4. Lung carcinoma with metastasis status post radiation 5. Complex medical patient with significant cardiovascular respiratory history Plan: -Medicine consult cardiology consult oncology and pulmonology consults appreciated -Should we consider surgery on Thursday we will need to hold his anticoagulation likely over the weekend -monitor neuro status, and bowel status -Pain control -GI prophylaxis -TLSO when up and about at all times -PT OT with aggressive ambulation protocol out of bed with all meals up and about 4 times a day with brace at all times when up and about -Teds, SCDs We will see how he mobilizes over the next few days. If there is no improvement surgery on Thursday is tentatively planned. Should he be able to mobilize well enough with brace and pain control to be able to go home with home health or rehab, then we can postpone and revisit. We have up to 2.5 weeks to make a decision for surgery at this point then, if he does not progress appropriately then we need to operate. If he progresses we can consider continuing with conservative treatments. This was discussed with patient and his at length. They understand. Time with Patient: Greater than 30
[2020-09-20] MEDS: ALPRAZolam 0.25 MG TAB PO PRN (13:45)
[2020-09-20] MEDS: oxyCODONE ER 20 MG TAB.ER.12H PO PRN (13:45)
[2020-09-20] MEDS: CYCLOBENZAPRINE 10 MG TAB PO PRN (13:45)
--- NOTE | 2020-09-20 14:10 | P.CRDCN ---
History of Present Illness History of present illness: This is a pleasant 80-year-old male past medical history significant for lung cancer (he has recently undergone radiation), persistent atrial fibrillation on Eliquis, coronary artery disease prior stenting of the LAD in 2001 as well as RCA in 2018 , hypertension, dyslipidemia, obesity sick sinus syndrome s/p permanent dual chamber pacemaker. We have been asked to see in consultation for preoperative evaluation. He follows with Dr. Summers. Patient states that he was walking out of his house with his into the garage, he was on his way to get his blood drawn, and he slipped and fell on he was walking down the stairs. Due to radiation he's been using a walker and have been having some difficulty walking. Patient denies any loss of consciousness, lightheadedness, dizziness,, syncope. CT of the spine revealed fractures involving the T9 and 10 vertebral body. Patient is scheduled to go for surgery on Thursday09/25/20. Patient is seen and examined, states he has a lot of lower back pain. Denies chest pain, palpitations, shortness of breath, lightheadedness, dizziness, syncope. Patient is tearful about his condition and his pain. Laboratory data reviewed, WBC 17.9, hemoglobin 16.5, platelets 233, sodium 135, potassium 4.6, creatinine 0.62, BUN 28, troponin negative 1. EKG- atrial fibrillation Current daily cardiac medications include aspirin 81 mg daily, Lasix 20 mg daily, Coreg 3.125 twice a day, spironolactone 25 mg daily Echo in 03/2018 revealed an EF of 40-45% Echo in 07/2018- EF of 55%, no regional wall motion abnormalities, aortic valve is mildly calcified, mild MR, mild TR, trace AR Most recent stress testLex and 09/2017- which was negative Device interrogation on 05/01/20 shows an increase in pacing percentage from 14% to 47%. He had one episode of A. fib with RVR with underlying A. fib REVIEW OF SYSTEMS At the time of my exam: CONSTITUTIONAL: Denies fever or chills. CARDIOVASCULAR: Denies chest pain, shortness of breath, orthopnea, PND or palpitations. RESPIRATORY: Denies cough. GASTROINTESTINAL: Denies abdominal pain, diarrhea, constipation, nausea or vomiting. MUSCULOSKELETAL: Complains of right lower extremity discomfort. NEUROLOGIC: Denies numbness, tingling or weakness. ENDOCRINE: Denies fatigue, weight change, polydipsia or polyurina. GENITOURINARY: Denies burning, hematuria or urgency with micturation. HEMATOLOGIC: Denies history of anemia or bleeding. PHYSICAL EXAMINATION CONSTITUTIONAL: No apparent distress. HEENT: Head is normocephalic. Pupils are equal, round. Sclerae anicteric. Mucous membranes of the mouth are moist. No JVD. No carotid bruit. CHEST EXAMINATION: Lungs are clear to auscultation. No chest wall tenderness is noted on palpation or with deep breathing. HEART EXAMINATION: Irregular rate and rhythm. S1, S2 heard. No murmur gallops or rub. Distant heart sounds. ABDOMEN: Soft, nontender. Positive bowel sounds. EXTREMITIES: 2+ peripheral pulses, trace lower extremity edema and no calf tenderness. NEUROLOGIC EXAMINATION: Patient is awake, alert and oriented. ASSESSMENT Lung cancer -Persistent atrial fibrillation on Eliquis -Coronary artery disease with prior stenting of the LAD as well as the RCA -History of hypertension -Hyperlipidemia -Morbid obesity BMI 40 -Sick sinus syndrome status post permanent dual-chamber pacemaker PLAN -Repeat Echo- EF 50-55%, LA is markedly dilated. -Tentative plan for surgery Thursday pending mobilization with brace and pain control. Patient may be discharged if improvement with mobilization with a brace and pain control. -If patient is being discharged- would recommend patient to see Dr. Summers in the office prior to surgery. -At this time, clinically the patient is euvolemic and does not appear to be in acute heart failure at this time. He has no symptoms suggestive of angina. There is no acute contraindications to undergo surgical intervention. He has moderate to high risk given his underlying comorbid conditions. Eliquis to be resumed postoperatively as soon as possible. Would recommend continuing aspirin. Nurse Practitioner note has been reviewed, I agree with a documented findings and plan of care. Patient was seen and examined. Past Medical History Past Medical History: Atrial Fibrillation, Coronary Artery Disease (CAD), Cancer, Heart Failure, Hypertension, Myocardial Infarction ([place]), Osteoarthritis (OA), Prostate Disorder, Respiratory Disorder Additional Past Medical History / Comment(s): Pt recently admtiited to [facility] on 08/22/20 with intractable low back pain with kyphoplasty T10 with biopsy (pt has not been given results/abnormal cat scan and pt told possible mets to bone. Pt recently in [facility] ER on 09/03/20 with constipation/colitis. 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 and was on Rocephin for 6 weeks in 2011-pt and spouse cannot recall if it was MRSA, BPH, large kidney ston e pt was told he would never be able to pass-cannot recall laterallity. Last Myocardial Infarction Date:: mar 2018 History of Any Multi-Drug Resistant Organisms: None Reported Past Surgical History: Back Surgery, Heart Catheterization With Stent, Joint Replacement, Orthopedic Surgery, Pacemaker Additional Past Surgical History / Comment(s): 08/2019 kyphoplasty/bx T10, 09/2019 bronch with bx/brushings/BAL, 2017 pacemaker, bilateral knee arthroscopies, bilateral total knee replacements, R knee surgery for patellar tendon tear, PCI with stents, colonoscopy, bilateral cataract removals. Past Anesthesia/Blood Transfusion Reactions: Motion Sickness Date of Last Stent Placement:: 03/23 Type of Cardiac Device: Permanent Pacemaker Device Placement Date:: 02/20 Past Psychological History: No Psychological Hx Reported Additional Psychological History / Comment(s): Pt resides with his spouse. He has a rollator walker which he is not using. Does use a cane prn. He has a bipap. Pt drives. Smoking Status: Former smoker Past Alcohol Use History: Rare Additional Past Alcohol Use History / Comment(s): Pt started smoking in 1953 and quit in 1977 Past Drug Use History: None Reported - Past Family History Sister(s) Family Medical History: Cancer Brother(s) Family Medical History: Cancer Additional Family Medical History / Comment(s): 3 brothers cancer Father Family Medical History: Coronary Artery Disease (CAD), CVA/TIA, Myocardial Infarction ([place]) Additional Family Medical History / Comment(s): Father had TIAs and MIs. He between the ages of 62-68yrs from what pt believes was a [place] Mother Family Medical History: Myocardial Infarction ([place]) Additional Family Medical History / Comment(s): Mother of a [place] at the age of 88yrs. Medications and Allergies Home Medications Medication Instructions Recorded Confirmed Type Aspirin 81 mg PO Q48H 11/27/16 09/18/20 History Multivitamins, Thera [Multivitamin 1 tab PO DAILY 11/27/16 09/18/20 History (formulary)] Furosemide [Lasix] 20 mg PO DAILY 02/19/18 09/18/20 History Tamsulosin [Flomax] 0.4 mg PO DAILY 02/19/18 09/18/20 History Spironolactone 25 mg PO DIRECTED 09/08/19 09/18/20 History Apixaban [Eliquis] 5 mg PO BID 08/22/20 09/18/20 History Cyclobenzaprine [Flexeril] 10 mg PO BID PRN 08/22/20 09/18/20 History carvediloL [Coreg] 3.125 mg PO BID 08/22/20 09/18/20 History Lactulose [Constulose] 10 gm PO DAILY PRN 09/05/20 09/18/20 History oxyCODONE ER [OxyCONTIN] 20 mg PO Q12HR 3 Days #6 tab 09/10/20 09/18/20 Rx ALPRAZolam [Xanax] 0.25 mg PO TID PRN #10 tab 09/12/20 09/18/20 Rx Magnesium Hydroxide [Milk of 2,400 mg PO BID PRN #360 ml 09/12/20 09/18/20 Rx Magnesia Concentrate] Pantoprazole [Protonix] 40 mg PO AC-BRKFST 30 Days #30 09/12/20 09/18/20 Rx tablet.dr Dalton [Senokot] 17.2 mg PO BID 30 Days #120 tab 09/12/20 09/18/20 Rx polyethylene glycoL 3350 [Miralax] 17 gm PO DAILY 30 Days #30 09/12/20 09/18/20 Rx powd.pack Dexamethasone [Decadron] See Taper PO DIRECTED 09/18/20 09/18/20 History Allergies Allergy/AdvReac Type Severity Reaction Status Date / Time hydrocodone [From Vicodin] AdvReac Hallucinati Verified 09/18/20 13:21 ons Gokavjs-Ssy-Ikc Reductase AdvReac MUSCLE PAIN Verified 09/18/20 13:21 Inhibitor Physical Exam Vitals: Vital Signs Temp Pulse Pulse Pulse Resp BP BP 09/19/20 14:13 97.7 F 63 18 156/93 09/19/20 07:25 97.4 F L 78 18 159/101 09/19/20 05:04 69 143/93 09/19/20 03:10 97.5 F L 69 18 156/102 09/18/20 20:30 97.4 F L 74 18 155/98 09/18/20 20:14 97.6 F 79 18 145/107 09/18/20 16:25 97.4 F L 80 18 167/100 Pulse Ox 09/19/20 14:13 94 L 09/19/20 07:25 95 09/19/20 05:04 09/19/20 03:10 93 L 09/18/20 20:30 94 L 09/18/20 20:14 94 L 09/18/20 16:25 97 Intake and Output 09/19/20 09/19/20 09/19/20 06:59 14:59 22:59 Intake Total 240 Balance 240 Intake: Oral 240 Other: Voiding Method Urinal Results 09/18/20 11:21 09/18/20 11:21 Current Medications Generic Name Dose Route Start Last Admin Trade Name Freq PRN Reason Stop Dose Admin Acetaminophen 650 mg 09/18/20 13:40 Acetaminophen Tab 325 Mg Tab PO Q6HR PRN Mild Pain or Fever > 100.5 Alprazolam 0.25 mg 09/19/20 09:51 Alprazolam 0.25 Mg Tab PO TID PRN Anxiety Apixaban 5 mg 09/19/20 10:00 09/19/20 11:13 Apixaban 5 Mg Tab PO 5 mg BID FITO Administration Carvedilol 3.125 mg 09/19/20 10:00 09/19/20 10:31 Carvedilol 3.125 Mg Tab PO 3.125 mg AC-BID FITO Administration Cyclobenzaprine HCl 10 mg 09/19/20 09:51 Cyclobenzaprine 10 Mg Tab PO BID PRN Muscle Spasm Famotidine 20 mg 09/18/20 21:00 09/19/20 07:47 Famotidine 20 Mg Tab PO 20 mg BID FITO Administration Fentanyl 1 patch 09/19/20 11:30 09/19/20 11:16 Fentanyl 50mcg/Hr Patch TRANSDERM 1 patch Q72H FITO Administration Protocol Hydromorphone HCl 0.5 mg 09/18/20 13:40 09/18/20 16:26 Hydromorphone 0.5 Mg/0.5 Ml Syringe IVP 0.5 mg Q3HR PRN Administration Moderate Pain Hydromorphone HCl 1 mg 09/18/20 13:40 09/19/20 10:38 Hydromorphone 1 Mg/Ml 1 Ml Syringe IVP 1 mg Q3HR PRN Administration Severe Pain Ketorolac Tromethamine 15 mg 09/19/20 09:53 09/19/20 10:30 Ketorolac 15 Mg/Ml 1 Ml Vial IVP 09/24/20 09:54 15 mg Q6HR PRN Administration Pain Lactulose 10 gm 09/19/20 09:51 Lactulose 20 Gm/30 Ml Cup PO DAILY PRN Constipation Naloxone HCl 0.2 mg 09/18/20 13:40 Naloxone 0.4 Mg/Ml 1 Ml Vial IV Q2M PRN Opioid Reversal Oxycodone HCl 20 mg 09/19/20 11:00 Oxycodone Er 20 Mg Tab.Er.12h PO Q12HR PRN Moderate Breakthrough Pain Protocol Pantoprazole Sodium 40 mg 09/19/20 10:00 09/19/20 10:31 Pantoprazole 40 Mg Tablet PO 40 mg AC-BRKFST FITO Administration Polyethylene Glycol 17 gm 09/19/20 09:57 Polyethylene Glycol 3350 17 Gm Powd.Pack PO DAILY PRN Constipation Senna 8.6 mg 09/19/20 21:00 Sennosides 8.6 Mg Tab PO BID FITO Tramadol HCl 50 mg 09/18/20 13:40 09/19/20 03:17 Tramadol 50 Mg Tab PO 50 mg Q6H PRN Administration Moderate Pain Intake and Output 09/19/20 09/19/20 09/19/20 06:59 14:59 22:59 Intake Total 240 Balance 240 Intake: Oral 240 Other: Voiding Method Urinal 09/18/20 11:21 09/18/20 11:21
--- NOTE | 2020-09-20 14:40 | P.PN ---
Subjective Progress Note Date: 09/20/20 Principal diagnosis: Back pain This is a very pleasant 80-year-old gentleman who follows with Dr. Rodriguez is his primary care provider. He has a history of coronary artery disease with previous stent placements, atrial fibrillation and previous pacemaker insertion, hypertension, congestive heart failure. He has a history of lung cancer diagnosed in September 2019 with a left upper lobe mass status post radiation. He has obstructive sleep apnea utilizing BiPAP in the outpatient setting. 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 He was just discharged home on 09/13/2020. He had received a total of 6 radiation treatments to his spine. Yesterday he presented to the emergency room after sustaining a fall down 3-4 steps at home. X-rays revealed multiple acute fracture lines involving the T9 and T10 vertebral bodies through the site of previous vertebral plasty in the vertebral body just above. The plan is for possible minimally invasive percutaneous fixation of the thoracic fractures once cleared medically. We are consulted for pulmonary clearance. The patient does follow with Dr. Watts in o ur office for the squamous cell carcinoma involving the left upper lobe. Has has a history of multiple pulmonary nodules present for over 5 years related to old granulomatous disease or sarcoid. No change in configuration her size. Most recent pulmonary function testing revealed an FEV1 value of 1.97 L. MVV of 91 and RV/TLC of 48. Findings were would indicate no increased risk of surgery from the pulmonary standpoint. The patient is seen today in consultation on the regular medical floor. He is currently laying flat in bed. Awake and alert. He is in moderate discomfort regarding his fractures of the back. He is maintaining good O2 saturations in the mid 90s on room air. He's been afebrile. White count 17.9. Hemoglobin 16.5. Sodium 135. Potassium 4.6. Creatinine 0.62. Urine drug screen positive for opiates and oxycodone. Serum alcohol level less than 10. Coronavirus not detected. Chest x-ray revealed right upper lobe mass measuring 1.6 cm. Left-sided pulmonary nodules and masses are also seen with areas of consolidation left perihilar and left upper lobe similar to previous exam of 09/06/2020. No pleural effusion. No pneumothorax. On 09/20/2000 patient seen in follow-up on medical floor, still having quite a bit of back pain, he is laying in bed, he is grimacing, moaning, appears to be quite uncomfortable, did work with physical therapy today, and back brace was put on patient was able to get up out of bed and take 2 steps, however her to be put back in bed following that, and currently having a lot of pain. Yesterday patient was started on fentanyl patch, which was removed last night because of increased confusion, he is having pain at 8 out of 10, which is constant, and has had very poor relief. He continues on Toradol 15 mg every 6 hours as n eeded, IV Dilaudid 2.5-1 mg every 3 hours. Troponin of perspective is stable, no worsening dyspnea, his current intravenous of oxygen as pulse ox of 95%, no fever or chills. Lung sounds are diminished, no rhonchi or wheezing. Objective - Vital Signs Vital signs: Vital Signs Temp 97.8 F 09/20/20 10:39 Pulse 87 09/20/20 10:39 Resp 17 09/20/20 10:39 BP 142/100 09/20/20 13:21 Pulse Ox 95 09/20/20 07:08 Intake & Output 09/19/20 09/20/20 09/20/20 18:59 06:59 18:59 Output Total 800 Balance -800 Weight 131.542 kg Output: Urine 800 Other: Voiding Method Urinal # Voids 2 - Exam GENERAL EXAM: Alert, very pleasant, 72-year-old white male, on 2 L of oxygen, the pulse ox of 95%, comfortable in no apparent distress. Patient is complaining of constant severe back pain, he is currently lying in bed, he is moaning, he is grimacing HEAD: Normocephalic/atraumatic. EYES: Normal reaction of pupils, equal size. Conjunctiva pink, sclera white. NOSE: Clear with pink turbinates. THROAT: No erythema or exudates. NECK: No masses, no JVD, no thyroid enlargement, no adenopathy. CHEST: No chest wall deformity. Symmetrical expansion. LUNGS: Equal air entry with diminished breath sounds CVS: Regular rate and rhythm, normal S1 and S2, no gallops, no murmurs, no rubs ABDOMEN: Soft, nontender. No hepatosplenomegaly, normal bowel sounds, no guarding or rigidity. EXTREMITIES: No clubbing, no edema, no cyanosis, 2+ pulses and upper and lower extremities. MUSCULOSKELETAL: Muscle strength and tone normal. SPINE: No scoliosis or deformity SKIN: No rashes CENTRAL NERVOUS SYSTEM: Alert and oriented -3. No focal deficits, tone is nor mal in all 4 extremities. PSYCHIATRIC: Alert and oriented -3. Appropriate affect. Intact judgment and insight. 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 with subsequent radiation 4 Squamous cell carcinoma the lung, stage IV 5 Recent kyphoplasty for pathologic fracture of vertebral body T10 6 History of multiple pulmonary nodules present for greater than 5 years suspected old granulomatous disease versus sarcoid, no changes 7 History of chronic atrial fibrillation, status post permanent pacemaker implantation 8 Obesity hypoventilation syndrome/obstructive sleep apnea, on BiPAP in the outpatient setting 9 Hypertension 10 Morbid obesity 11 History of coronary artery disease with previous stent placement 12 Former smoker Plan: From pulmonary perspective patient has been stable, provided spirometer, will clear the patient for surgery, and patient was found to be low surgical risk from pulmonary perspective. We'll consult pain service is for recommendations for his back pain management. I performed a history & physical examination of the patient and discussed their management with my nurse practitioner, Katya Sainz. I reviewed the nurse practitioner's note and agree with the documented findings and plan of care. Lung sounds are positive for clear breath sounds. The findings and the impression was discussed with the patient. I attest to the documentation by the nurse practitioner. Time with Patient: Less than 30
[2020-09-21] MEDS: HYDROmorphone 1 MG/ML 1 ML SYRINGE IVP PRN (01:05)
[2020-09-21] MEDS: ALPRAZolam 0.25 MG TAB PO PRN ×2 (01:09→13:00)
[2020-09-21] MEDS: KETOROLAC 15 MG/ML 1 ML VIAL IVP PRN (03:38)
[2020-09-21] MEDS: oxyCODONE ER 20 MG TAB.ER.12H PO PRN ×2 (07:27→21:32)
[2020-09-21] MEDS: CYCLOBENZAPRINE 10 MG TAB PO PRN ×2 (07:27→14:53)
[2020-09-21] MEDS: FAMOTIDINE 20 MG TAB PO SCH ×2 (07:28→21:28)
[2020-09-21] MEDS: carvediloL 3.125 MG TAB PO SCH ×2 (07:28→17:49)
[2020-09-21] MEDS: PANTOPRAZOLE 40 MG TABLET PO SCH (07:28)
[2020-09-21] MEDS: SENNOSIDES 8.6 MG TAB PO SCH ×2 (07:29→21:28)
[2020-09-21 10:04] LABS: Basophils % (A) 0 %; Eosinophils # (A) 0.1 k/uL (0-0.7); Eosinophils % (A) 1 %; HCT 49.9 % (39.0-53.0); HGB 16.2 gm/dL (13.0-17.5); Lymphocytes # (A) 0.2 k/uL (1.0-4.8); Lymphocytes % (A) 2 %; MCH 30.3 pg (25.0-35.0); MCHC 32.5 g/dL (31.0-37.0); MCV 93.5 fL (80.0-100.0); Mean Platelet Volume 7.8; Monocytes # (A) 0.6 k/uL (0-1.0); Monocytes % (A) 5 %; Neutrophils # (A) 10.4 k/uL (1.3-7.7); Neutrophils % (A) 91 %; Platelet Count 190 k/uL (150-450); RBC 5.34 m/uL (4.30-5.90); RDW 15.1 % (11.5-15.5); WBC 11.4 k/uL (3.8-10.6)
[2020-09-21 10:28] LABS: ALT 28 U/L (4-49); AST 28 U/L (17-59); African American GFR (CKD) >90 (>60 ml/min/1.73 sqM); Albumin 3.4 g/dL (3.5-5.0); Albumin/Globulin Ratio 1.4; Alkaline Phosphatase 93 U/L (38-126); Anion Gap 5 mmol/L; Blood Urea Nitrogen 25 mg/dL (9-20); Carbon Dioxide 35 mmol/L (22-30); Chloride 98 mmol/L (98-107); Globulin 2.5 g/dL; Glucose 152 mg/dL (74-99); Non-African American GFR(CKD) >90 (>60 ml/min/1.73 sqM); Potassium 4.3 mmol/L (3.5-5.1); Sodium 138 mmol/L (137-145); Total Bilirubin 1.2 mg/dL (0.2-1.3); Total Protein 5.9 g/dL (6.3-8.2)
[2020-09-21] MEDS: APIXABAN 5 MG TAB PO SCH (12:41)
[2020-09-21] MEDS: ENOXAPARIN 40 MG/0.4 ML SYRINGE SQ SCH (12:58)
[2020-09-21] MEDS: traMADol 50 MG TAB PO PRN (14:56)
--- NOTE | 2020-09-21 15:12 | P.PN ---
Subjective Progress Note Date: 09/21/20 - Reason for Consult Metastatic lung cancer, preoperative clearance - History of Present Illness 80-year-old pleasant male fairly functional before his severe back pain secondary to metastatic lung cancer. Patient is admitted secondary to fall found to have fracture of the T9 vertebral body. Orthotic surgery evaluation there are planning on stimulation his surgery for this vertebral body. Patient appears to have a pathological fracture patient is also found to have right knee strain without any fracture and knee effusion. Patient had multiple hospital physicians recently for severe back pain for which patient had a biopsy which showed metastatic metastatic non-small cell lung cancer for which patient is presently receiving radiation therapy patient had a recent kyphoplasty of pathological fracture of T10 vertebral body. Patient is a well-known and very pleasant gentleman does have some medical problems including obesity hypoventilation syndrome and sleep apnea. 09/21/2020 Patient is seen and evaluated in follow-up with no acute overnight issues. Does have his back brace on and is currently sitting up in the chair with family at the bedside. Patient is attempting for aggressive physical therapy and getting up and sitting in the chair at least 3 times per day. We are currently following along with orthopedic surgery and possible tentative surgery next Thursday if patient's progression with physical therapy does not help. Patient is attempting to avoid surgery if possible. Review of systems: Constitutional: No reports of fatigue, fever, or chills Cardiovascular: No reports of chest pain or palpitations Respiratory: No reports of shortness of breath or cough GI: No reports of nausea, vomiting, or diarrhea : No reports of dysuria or retention Neurovascular: rePorts generalized weakness and continued back pain All medications have been reviewed Objective - Vital Signs Vital signs: Vital Signs Temp 97.3 F L 09/21/20 05:00 Pulse 92 09/21/20 05:00 Resp 16 09/21/20 05:00 BP 142/85 09/21/20 05:00 Pulse Ox 94 L 09/21/20 05:00 Intake & Output 09/20/20 09/21/20 09/21/20 18:59 06:59 18:59 Intake Total 600 1080 Balance 600 1080 Weight 131.542 kg Intake: Oral 600 1080 Other: Voiding Method Urinal # Voids 0 - Exam GENERAL: The patient is alert and oriented x3, not in any acute distress. Well developed, well nourished. Currently sitting up in the chair with back brace noted HEENT: Pupils are round and equally reacting to light. EOMI. No scleral icterus. No conjunctival pallor. Normocephalic, atraumatic. No pharyngeal erythema. No thyromegaly. CARDIOVASCULAR: S1 and S2 present. No murmurs, rubs, or gallops. PULMONARY: Chest is clear to auscultation, no wheezing or crackles. ABDOMEN: Soft, nontender, nondistended, normoactive bowel sounds. No palpable organomegaly. MUSCULOSKELETAL: Deferred to orthopedic surgery EXTREMITIES: No cyanosis, clubbing, or pedal edema. Lower extremities elevated NEUROLOGICAL: Gross neurological examination did not reveal any focal deficits. SKIN: No rashes. - Labs CBC & Chem 7: 09/21/20 09:10 09/21/20 09:10 Labs: Abnormal Lab Results - Last 24 Hours (Table) 09/21/20 09/21/20 Range/Units 09:10 09:10 WBC 11.4 H (3.8-10.6) k/uL Neutrophils # 10.4 H (1.3-7.7) k/uL Lymphocytes # 0.2 L (1.0-4.8) k/uL Carbon Dioxide 35 H (22-30) mmol/L BUN 25 H (9-20) mg/dL Glucose 152 H (74-99) mg/dL Total Protein 5.9 L (6.3-8.2) g/dL Albumin 3.4 L (3.5-5.0) g/dL Assessment and Plan Assessment: -T9 vertebral body fracture fracture: Patient is a low operative risk for this surgery. 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 fib patient is presently rate and rate controlled patient does have a pacemaker. Patient is on Eliquis which is being held for potential surgery this Thursday -Hypertension -Obesity -Coronary artery disease For above-mentioned chronic medical problems patient will be resumed on ap propriate home medications Plan: Continue with current medications and aggressive physical therapy. Patient has been up in the chair at least 3 times per day. Patient tolerating diet with no reports of nausea or vomiting noted. Patient attempting to avoid surgery if possible and we'll continue to monitor and follow along closely with orthopedic surgery. Thank you for this consultation.
--- NOTE | 2020-09-21 16:07 | P.PN ---
Subjective Progress Note Date: 09/21/20 Principal diagnosis: Back pain This is a very pleasant 80-year-old gentleman who follows with Dr. Rodriguez is his primary care provider. He has a history of coronary artery disease with previous stent placements, atrial fibrillation and previous pacemaker insertion, hypertension, congestive heart failure. He has a history of lung cancer diagnosed in September 2019 with a left upper lobe mass status post radiation. He has obstructive sleep apnea utilizing BiPAP in the outpatient setting. 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 He was just discharged home on 09/13/2020. He had received a total of 6 radiation treatments to his spine. Yesterday he presented to the emergency room after sustaining a fall down 3-4 steps at home. X-rays revealed multiple acute fracture lines involving the T9 and T10 vertebral bodies through the site of previous vertebral plasty in the vertebral body just above. The plan is for possible minimally invasive percutaneous fixation of the thoracic fractures once cleared medically. We are consulted for pulmonary clearance. The patient does follow with Dr. Watts in o ur office for the squamous cell carcinoma involving the left upper lobe. Has has a history of multiple pulmonary nodules present for over 5 years related to old granulomatous disease or sarcoid. No change in configuration her size. Most recent pulmonary function testing revealed an FEV1 value of 1.97 L. MVV of 91 and RV/TLC of 48. Findings were would indicate no increased risk of surgery from the pulmonary standpoint. The patient is seen today in consultation on the regular medical floor. He is currently laying flat in bed. Awake and alert. He is in moderate discomfort regarding his fractures of the back. He is maintaining good O2 saturations in the mid 90s on room air. He's been afebrile. White count 17.9. Hemoglobin 16.5. Sodium 135. Potassium 4.6. Creatinine 0.62. Urine drug screen positive for opiates and oxycodone. Serum alcohol level less than 10. Coronavirus not detected. Chest x-ray revealed right upper lobe mass measuring 1.6 cm. Left-sided pulmonary nodules and masses are also seen with areas of consolidation left perihilar and left upper lobe similar to previous exam of 09/06/2020. No pleural effusion. No pneumothorax. On 09/20/2000 patient seen in follow-up on medical floor, still having quite a bit of back pain, he is laying in bed, he is grimacing, moaning, appears to be quite uncomfortable, did work with physical therapy today, and back brace was put on patient was able to get up out of bed and take 2 steps, however her to be put back in bed following that, and currently having a lot of pain. Yesterday patient was started on fentanyl patch, which was removed last night because of increased confusion, he is having pain at 8 out of 10, which is constant, and has had very poor relief. He continues on Toradol 15 mg every 6 hours as n eeded, IV Dilaudid 2.5-1 mg every 3 hours. Troponin of perspective is stable, no worsening dyspnea, his current intravenous of oxygen as pulse ox of 95%, no fever or chills. Lung sounds are diminished, no rhonchi or wheezing. On 09/21/2020 patient seen in follow-up on medical floor, is much more comfortable, on today's exam, feeling better, he has a back brace and right leg brace on, he sitting up in the chair, she feels and looks better on today's exam, his pain is better controlled. She is on 2 L of oxygen pulse ox is 95%, no fever chills, his vital signs have been stable, respirations have been nonlabored. She is currently on a combination of OxyContin, fentanyl patch 50 mics per hour, and Dilantin 0.5-1 mg every 3 hours for breakthrough pain. Orthopedic surgery is following, and currently patient is tentatively scheduled for Thursday for his surgery, however he will be observed overnight few days for any improvement, if he continues to improve and he is able to mobilize enough he will be considered for a home health or rehab and his surgery will be postponed. Objective - Vital Signs Vital signs: Vital Signs Temp 98.5 F 09/21/20 12:26 Pulse 80 09/21/20 12:26 Resp 17 09/21/20 12:26 BP 138/92 09/21/20 12:26 Pulse Ox 95 09/21/20 12:26 Intake & Output 09/20/20 09/21/20 09/21/20 18:59 06:59 18:59 Intake Total 600 1080 Balance 600 1080 Weight 131.542 kg Intake: Oral 600 1080 Other: Voiding Method Urinal # Voids 0 - Exam GENERAL EXAM: Alert, very pleasant, 72-year-old white male, on 2 L of oxygen, the pulse ox of 95%, more comfortable in no apparent distress. Patient has a TLSO brace and right knee brace, he sitting up in a recliner, much more comfortable and his pain is better controlled on today's exam HEAD: Normocephalic/atraumatic. EYES: Normal reaction of pupils, equal size. Conjunctiva pink, sclera white. NOSE: Clear with pink turbinates. THROAT: No erythema or exudates. NECK: No masses, no JVD, no thyroid enlargement, no adenopathy. CHEST: No chest wall deformity. Symmetrical expansion. LUNGS: Equal air entry with diminished breath sounds CVS: Regular rate and rhythm, normal S1 and S2, no gallops, no murmurs, no rubs ABDOMEN: Soft, nontender. No hepatosplenomegaly, normal bowel sounds, no guarding or rigidity. EXTREMITIES: No clubbing, no edema, no cyanosis, 2+ pulses and upper and lower extremities. MUSCULOSKELETAL: Muscle strength and tone normal. SPINE: No scoliosis or deformity SKIN: No rashes CENTRAL NERVOUS SYSTEM: Alert and oriented -3. No focal deficits, tone is normal in all 4 extremities. PSYCHIATRIC: Alert and oriented -3. Appropriate affect. Intact judgment and insight. - Labs CBC & Chem 7: 09/21/20 09:10 09/21/20 09:10 Labs: Abnormal Lab Results - Last 24 Hours (Table) 09/21/20 09/21/20 Range/Units 09:10 09:10 WBC 11.4 H (3.8-10.6) k/uL Neutrophils # 10.4 H (1.3-7.7) k/uL Lymphocytes # 0.2 L (1.0-4.8) k/uL Carbon Dioxide 35 H (22-30) mmol/L BUN 25 H (9-20) mg/dL Glucose 152 H (74-99) mg/dL Total Protein 5.9 L (6.3-8.2) g/dL Albumin 3.4 L (3.5-5.0) g/dL Assessment and Plan Plan: Assessment: 1 New niurka implant fracture T9 vertebral body, chance fracture T10 vertebral body 2 Right knee sprain without fracture 3 Metastatic 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 with subsequent radiation 4 Squamous cell carcinoma the lung, stage IV 5 Recent kyphoplasty for pathologic fracture of vertebral body T10 6 History of multiple pulmonary nodules present for greater than 5 years suspected old granulomatous disease versus sarcoid, no changes 7 History of chronic atrial fibrillation, status post permanent pacemaker implantation 8 Obesity hypoventilation syndrome/obstructive sleep apnea, on BiPAP in the outpatient setting 9 Hypertension 10 Morbid obesity 11 History of coronary artery disease with previous stent placement 12 Former smoker Plan: Patient has remained stable from pulmonary perspective, no worsening dyspnea or hypoxia, continue encouraging deep breathing and coughing incentive spirometry use, his had no fever or chills, his pain is under better control today's exam, his TLSO brace was delivered, he is also wearing his right knee brace, he was able to get up in the chair, tolerating activity well, his surgery is tentatively scheduled for Thursday. We'll continue to follow and make further recommendations. I performed a history & physical examination of the patient and discussed their management with my nurse practitioner, Katya Sainz. I reviewed the nurse practitioner's note and agree with the documented findings and plan of care. Lung sounds are positive for clear breath sounds. The findings and the impression was discussed with the patient. I attest to the documentation by the nurse practitioner. Time with Patient: Less than 30
--- NOTE | 2020-09-21 17:00 | P.PN ---
Subjective Progress Note Date: 09/21/20 Principal diagnosis: 1. T9 and T10 acute split-type fractures, chance-type fractures no posterior column involvement evident Patient was examined today at bedside, his was also present. Patient was noted by nursing to ambulate the halls today with walker, he is utilizing his TLSO brace and his eye ROM brace on the right knee. Patient's symptoms seem to have improved significantly. He notes the discomfort in the right knee is improving. He denies any headaches, chest pain, loss of bowel or bladder function, lower extremity paresthesias. Objective - Vital Signs Vital signs: Vital Signs Temp 98.5 F 09/21/20 12:26 Pulse 80 09/21/20 12:26 Resp 17 09/21/20 12:26 BP 138/92 09/21/20 12:26 Pulse Ox 95 09/21/20 12:26 Intake & Output 09/20/20 09/21/20 09/21/20 18:59 06:59 18:59 Intake Total 600 1080 Balance 600 1080 Weight 131.542 kg Intake: Oral 600 1080 Other: Voiding Method Urinal # Voids 0 - Labs CBC & Chem 7: 09/21/20 09:10 09/21/20 09:10 Labs: Abnormal Lab Results - Last 24 Hours (Table) 09/21/20 09/21/20 Range/Units 09:10 09:10 WBC 11.4 H (3.8-10.6) k/uL Neutrophils # 10.4 H (1.3-7.7) k/uL Lymphocytes # 0.2 L (1.0-4.8) k/uL Carbon Dioxide 35 H (22-30) mmol/L BUN 25 H (9-20) mg/dL Glucose 152 H (74-99) mg/dL Total Protein 5.9 L (6.3-8.2) g/dL Albumin 3.4 L (3.5-5.0) g/dL Assessment and Plan Assessment: 1. T9 and T10 acute split-type fractures, chance-type fractures no posterior column involvement evident 2. Status post T10 kyphoplasty 3. Status post fall from standing 4. Lung carcinoma with metastasis status post radiation 5. Complex medical patient with significant cardiovascular respiratory history Plan: Discussed with the patient and family today with his symptoms improving over one day, there is the possibility of continuing the conservative measures with bracing and therapy. I would like to see how the patient does through the weekend with regards to his pain control and activity level. We will keep him tentatively scheduled for surgery for 09/25/2020. We will hold the Eliquis at this time, Lovenox 40 mg daily will be started. I anticipate if the patient's symptoms continued to improve, patient will require a stay at subacute rehab for daily therapy before going home. Patient would also benefit from home health care when discharged home We will continue to follow the patient during his hospital stay Pain control, continue current regimen DVT prophylaxis, Eliquis has been held, Lovenox 40 mg daily Other medical specially recommendations Continue with daily physical therapy Further recommendations to follow Time with Patient: Less than 30
[2020-09-22] MEDS: CYCLOBENZAPRINE 10 MG TAB PO PRN (00:32)
[2020-09-22] MEDS: carvediloL 3.125 MG TAB PO SCH ×2 (08:41→17:48)
[2020-09-22] MEDS: PANTOPRAZOLE 40 MG TABLET PO SCH (08:41)
[2020-09-22] MEDS: SENNOSIDES 8.6 MG TAB PO SCH ×2 (08:41→19:39)
[2020-09-22] MEDS: FAMOTIDINE 20 MG TAB PO SCH ×2 (08:41→19:39)
[2020-09-22] MEDS: ENOXAPARIN 40 MG/0.4 ML SYRINGE SQ SCH (08:41)
[2020-09-22] MEDS: oxyCODONE ER 20 MG TAB.ER.12H PO PRN (09:24)
[2020-09-22] MEDS: HYDROmorphone 1 MG/ML 1 ML SYRINGE IVP PRN ×3 (10:45→17:51)
--- NOTE | 2020-09-22 13:21 | P.PN ---
Subjective Progress Note Date: 09/22/20 Principal diagnosis: T9 and T10 acute split-type fractures, chance-type fractures no posterior column involvement evident Patient was examined today at bedside, he is resting comfortably in his hospital chair. He is currently utilizing the TLSO brace. Discussed with nursing prior to ending the room, he was having some increasing pain today, there findings more comfortable when he sitting up in the chair versus lying in bed. They have utilized the final patch that was placed today, he is also utilizing the 1 mg of Dilaudid and his oral pain medication. He denies any headaches, chest pain, loss of bowel or bladder function, lower extremity paresthesias. Objective - Vital Signs Vital signs: Vital Signs Temp 97.4 F L 09/22/20 05:30 Pulse 73 09/22/20 08:00 Resp 20 09/22/20 08:00 BP 130/84 09/22/20 05:30 Pulse Ox 96 09/22/20 05:30 Intake & Output 09/21/20 09/22/20 09/22/20 18:59 06:59 18:59 Intake Total 100 Balance 100 Intake: Oral 100 Other: Voiding Method Urinal Urinal # Voids 3 1 - Labs CBC & Chem 7: 09/21/20 09:10 09/21/20 09:10 Assessment and Plan Assessment: 1. T9 and T10 acute split-type fractures, chance-type fractures no posterior column involvement evident 2. Status post T10 kyphoplasty 3. Status post fall from standing 4. Lung carcinoma with metastasis status post radiation 5. Complex medical patient with significant cardiovascular respiratory history Plan: Pain control, continue current regimen. Discussed with the patient today bedside that trying to avoid the IV Dilaudid will help us determine if surgical intervention will be needed. Therefore able to continue to control his symptoms with his oral medication that is a better sign that we'll be able to hold off with surgery and continue conservative measures. DVT prophylaxis, Eliquis has been held, Lovenox 40 mg daily Other medical specially recommendations Continue with daily physical therapy Was able to discuss with the daughter today bedside with the current treatment plan, this including the conservative measures and surgical option. Family con tinues to want to proceed with conservative measures pending his symptoms don't worsen. We discussed the possibility of an inpatient rehab, this being the facility at [facility]. We'll plan to have a conversation with the family and also case management and social work in the coming days. Further recommendations to follow
--- NOTE | 2020-09-22 14:14 | P.PN ---
Subjective Progress Note Date: 09/22/20 Principal diagnosis: Preop clearance. On 09/20/2000 patient seen in follow-up on medical floor, still having quite a bit of back pain, he is laying in bed, he is grimacing, moaning, appears to be quite uncomfortable, did work with physical therapy today, and back brace was put on patient was able to get up out of bed and take 2 steps, however her to be put back in bed following that, and currently having a lot of pain. Yesterday patient was started on fentanyl patch, which was removed last night because of increased confusion, he is having pain at 8 out of 10, which is constant, and has had very poor relief. He continues on Toradol 15 mg every 6 hours as needed, IV Dilaudid 2.5-1 mg every 3 hours. Troponin of perspective is stable, no worsening dyspnea, his current intravenous of oxygen as pulse ox of 95%, no fever or chills. Lung sounds are diminished, no rhonchi or wheezing. On 09/21/2020 patient seen in follow-up on medical floor, is much more comfortable, on today's exam, feeling better, he has a back brace and right leg brace on, he sitting up in the chair, she feels and looks better on today's exam, his pain is better controlled. She is on 2 L of oxygen pulse ox is 95%, no fever chills, his vital signs have been stable, respirations have been nonl abored. She is currently on a combination of OxyContin, fentanyl patch 50 mics per hour, and Dilantin 0.5-1 mg every 3 hours for breakthrough pain. Orthopedic surgery is following, and currently patient is tentatively scheduled for Thursday for his surgery, however he will be observed overnight few days for any improvement, if he continues to improve and he is able to mobilize enough he will be considered for a home health or rehab and his surgery will be postponed. Progress note dated 09/22/2020. 80-year-old male that we are asked to see for preop clearance. The patient may have back surgery next week. Lung function showed that he would be note to low increased operative risk, based on his FEV1, the MVV, and RV/TLC ratio. His FEV1 was 1.97 L, MVV was 91 L/m, and RV/TLC ratio was 48. These are all excellent. Back surgery has not yet been decided on this patient. He is a bit more comfortable. They placed a fentanyl patch on him this morning. Room air saturations are 96%. No new labs today. He sitting today with his daughter. Objective - Vital Signs Vital signs: Vital Signs Temp 97.4 F L 09/22/20 05:30 Pulse 73 09/22/20 08:00 Resp 20 09/22/20 08:00 BP 130/84 09/22/20 05:30 Pulse Ox 96 09/22/20 05:30 Intake & Output 09/21/20 09/22/20 09/22/20 18:59 06:59 18:59 Intake Total 100 Balance 100 Intake: Oral 100 Other: Voiding Method Urinal Urinal # Voids 3 1 - Exam GENERAL EXAM: Alert, very pleasant, 72-year-old white male, on room air, with a pulse ox of 95%, more comfortable in no apparent distress. Patient has a TLSO brace and right knee brace, he sitting up in a recliner, much more comfortable and his pain is better controlled on today's exam HEAD: Normocephalic/atraumatic. EYES: Normal reaction of pupils, equal size. Conjunctiva pink, sclera white. NOSE: Clear with pink turbinates. THROAT: No erythema or exudates. NECK: No masses, no JVD, no thyroid enlargement, no adenopathy. CHEST: No chest wall deformity. Symmetrical expansion. LUNGS: Equal air entry with diminished breath sounds CVS: Regular rate and rhythm, normal S1 and S2, no gallops, no murmurs, no rubs. Heart rate 73 bpm. ABDOMEN: Soft, nontender. No hepatosplenomegaly, normal bowel sounds, no guarding or rigidity. EXTREMITIES: No clubbing, no edema, no cyanosis, 2+ pulses and upper and lower extremities. MUSCULOSKELETAL: Muscle strength and tone normal. SPINE: No scoliosis or deformity SKIN: No rashes CENTRAL NERVOUS SYSTEM: Alert and oriented -3. No focal deficits, tone is normal in all 4 extremities. PSYCHIATRIC: Alert and oriented -3. Appropriate affect. Intact judgment and insight. - Labs CBC & Chem 7: 09/21/20 09:10 09/21/20 09:10 Assessment and Plan Assessment: 1 New niurka-implant fracture T9 vertebral body, chance fracture T10 vertebral body. 2 Right knee sprain without fracture. 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 4 Squamous cell carcinoma the lung, stage IV. 5 Recent kyphoplasty for pathologic fracture of vertebral body T10. 6 History of multiple pulmonary nodules present for greater than 5 years suspected old granulomatous disease versus sarcoid, no changes. 7 History of chronic atrial fibrillation, status post permanent pacemaker implantation. 8 Obesity hypoventilation syndrome/obstructive sleep apnea, on BiPAP in the outpatient setting. 9 Hypertension. 10 Morbid obesity. 11 History of coronary artery disease with previous stent placement. 12 Former smoker. Plan: Plan dated 09/22/2020. Currently, the patient is having much less back pain that he had a couple days ago. We were asked to see the patient for preop clearance. We did clear the patient but is not clear whether or not surgery will be done next week. Based on his FEV1, MVV, and RV/TLC ratio, the patient is at no increased operative risk. Surgery has not yet been decided. A fentanyl patch was placed on the patient today. Additional recommendations and suggestions are forthcoming. Prognosis is guarded. Time with Patient: Less than 30
--- NOTE | 2020-09-22 18:06 | P.PN ---
Subjective 80-year-old pleasant male fairly functional before his severe back pain secondary to metastatic lung cancer. Patient is admitted secondary to fall found to have fracture of the T9 vertebral body. Orthotic surgery evaluation there are planning on stimulation his surgery for this vertebral body. Patient appears to have a pathological fracture patient is also found to have right knee strain without any fracture and knee effusion. Patient had multiple hospital physicians recently for severe back pain for which patient had a biopsy which showed metastatic metastatic non-small cell lung cancer for which patient is presently receiving radiation therapy patient had a recent kyphoplasty of pathological fracture of T10 vertebral body. Patient is a well-known and very pleasant gentleman does have some medical problems including obesity hypove ntilation syndrome and sleep apnea. 09/21/2020 Patient is seen and evaluated in follow-up with no acute overnight issues. Does have his back brace on and is currently sitting up in the chair with family at the bedside. Patient is attempting for aggressive physical therapy and getting up and sitting in the chair at least 3 times per day. We are currently following along with orthopedic surgery and possible tentative surgery next Thursday if patient's progression with physical therapy does not help. Patient is attempting to avoid surgery if possible. 09/22/2020 Patient the started having pain again pain management is managing the patient patient was started back on fentanyl patch Constitutional: Denied any fatigue denied any fever. Cardio vascular: denied any chest pain, palpitations Gastrointestinal denied any nausea vomiting Pulmonary: Denied any shortness of breath cough Neurologic denied any new focal deficits All inpatient medications were reviewed and appropriate changes in these medications as dictated in the interval history and assessment and plan. Objective - Vital Signs Vital signs: Vital Signs Temp 97.9 F 09/22/20 14:00 Pulse 71 09/22/20 14:00 Resp 20 09/22/20 14:00 BP 137/83 09/22/20 14:00 Pulse Ox 95 09/22/20 14:00 Intake & Output 09/21/20 09/22/20 09/22/20 18:59 06:59 18:59 Intake Total 100 Balance 100 Intake: Oral 100 Other: Voiding Method Urinal Urinal # Voids 3 1 - Exam GENERAL: The patient is alert and oriented x3, not in any acute distress. Well developed, well nourished. Currently sitting up in the chair with back brace noted HEENT: Pupils are round and equally reacting to light. EOMI. No scleral icterus. No conjunctival pallor. Normocephalic, atraumatic. No pharyngeal erythema. No thyromegaly. CARDIOVASCULAR: S1 and S2 present. No murmurs, rubs, or gallops. PULMONARY: Chest is clear to auscultation, no wheezing or crackles. ABDOMEN: Soft, nontender, nondistended, normoactive bowel sounds. No palpable organomegaly. MUSCULOSKELETAL: Deferred to orthopedic surgery EXTREMITIES: No cyanosis, clubbing, or pedal edema. Lower extremities elevated NEUROLOGICAL: Gross neurological examination did not reveal any focal deficits. SKIN: No rashes. - Labs CBC & Chem 7: 09/21/20 09:10 09/21/20 09:10 Assessment and Plan Plan: -T9 vertebral body fracture fracture: Patient is a low operative risk for this surgery. 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 fib patient is presently rate and rate controlled patient does have a pacemaker. Patient is on Eliquis which is being held for potential surgery this Thursday -Hypertension -Obesity -Coronary artery disease For above-mentioned chronic medical problems patient will be resumed on appropriate home medications Plan: Continue with current medications and aggressive physical therapy. Patient has been up in the chair at least 3 times per day. Patient tolerating diet with no reports of nausea or vomiting noted. Patient attempting to avoid surgery if possible and we'll continue to monitor and follow along closely with orthopedic surgery. Thank you for this consultation.
[2020-09-22] MEDS: KETOROLAC 15 MG/ML 1 ML VIAL IVP PRN (19:40)
[2020-09-23] MEDS: HYDROmorphone 1 MG/ML 1 ML SYRINGE IVP PRN ×3 (07:36→21:12)
[2020-09-23] MEDS: carvediloL 3.125 MG TAB PO SCH ×2 (07:37→16:53)
[2020-09-23] MEDS: SENNOSIDES 8.6 MG TAB PO SCH ×2 (07:37→20:25)
[2020-09-23] MEDS: PANTOPRAZOLE 40 MG TABLET PO SCH (07:37)
[2020-09-23] MEDS: FAMOTIDINE 20 MG TAB PO SCH ×2 (07:37→20:25)
[2020-09-23] MEDS: ENOXAPARIN 40 MG/0.4 ML SYRINGE SQ SCH (07:37)
[2020-09-23] MEDS: KETOROLAC 15 MG/ML 1 ML VIAL IVP PRN (09:10)
--- NOTE | 2020-09-23 12:51 | P.PN ---
Subjective Progress Note Date: 09/23/20 Principal diagnosis: T9 and T10 acute split-type fractures, chance-type fractures no posterior column involvement evident Patient was examined today at bedside, he is resting comfortably in his hospital chair. He is currently utilizing the TLSO brace. Patient is having a lot more pain today than he has the last few days. He is very difficult for him to get up to the chair He under his own strength. Patient is very emotional today with regards to his current condition. He denies any headaches, chest pain, loss of bowel or bladder function, lower extremity paresthesias. Objective - Vital Signs Vital signs: Vital Signs Temp 97.6 F 09/23/20 05:00 Pulse 89 09/23/20 05:00 Resp 20 09/23/20 05:00 BP 145/88 09/23/20 05:00 Pulse Ox 95 09/23/20 05:00 Intake & Output 09/22/20 09/23/20 09/23/20 18:59 06:59 18:59 Intake Total 720 200 Balance 720 200 Intake: Oral 720 200 Other: Voiding Method Urinal Urinal Incontinent # Voids 4 3 - Labs CBC & Chem 7: 09/21/20 09:10 09/21/20 09:10 Assessment and Plan Assessment: 1. T9 and T10 acute split-type fractures, chance-type fractures no posterior column involvement evident 2. Status post T10 kyphoplasty 3. Status post fall from standing 4. Lung carcinoma with metastasis status post radiation 5. Complex medical patient with significant cardiovascular respiratory history Plan: Pain control, continue current medication regimen. DVT prophylaxis, Eliquis has been held, Lovenox 40 mg daily Other medical specially recommendations Continue with daily physical therapy With the patient's pain symptoms worsening along with his general activity level, surgical intervention is looking like the treatment of choice. Discussed with the patient's daughter over the phone today and then again with the patient and his at bedside today treatment options. The patient and his family are on board with the treatment option if his symptoms continue to not improved. He is scheduled tentatively for 09/25/2020. IV fluids will be restarted today, patient states he hasn't been very hungry and not been drinking very much. Discussed with nursing the possibility of using a urinary catheter if he has difficulty with urination, this can be started today. Further recommendations to follow Time with Patient: Less than 30
--- NOTE | 2020-09-23 14:38 | P.PN ---
Subjective 80-year-old pleasant male fairly functional before his severe back pain secondary to metastatic lung cancer. Patient is admitted secondary to fall found to have fracture of the T9 vertebral body. Orthotic surgery evaluation there are planning on stimulation his surgery for this vertebral body. Patient appears to have a pathological fracture patient is also found to have right knee strain without any fracture and knee effusion. Patient had multiple hospital physicians recently for severe back pain for which patient had a biopsy which showed metastatic metastatic non-small cell lung cancer for which patient is presently receiving radiation therapy patient had a recent kyphoplasty of pathological fracture of T10 vertebral body. Patient is a well-known and very pleasant gentleman does have some medical problems including obesity hypove ntilation syndrome and sleep apnea. 09/21/2020 Patient is seen and evaluated in follow-up with no acute overnight issues. Does have his back brace on and is currently sitting up in the chair with family at the bedside. Patient is attempting for aggressive physical therapy and getting up and sitting in the chair at least 3 times per day. We are currently following along with orthopedic surgery and possible tentative surgery next Thursday if patient's progression with physical therapy does not help. Patient is attempting to avoid surgery if possible. 09/22/2020 Patient the started having pain again pain management is managing the patient patient was started back on fentanyl patch 09/23/2020 Patient's the pain is better. Patient had bowel movement today. Constitutional: Denied any fatigue denied any fever. Cardio vascular: denied any chest pain, palpitations Gastrointestinal denied any nausea vomiting Pulmonary: Denied any shortness of breath cough Neurologic denied any new focal deficits All inpatient medications were reviewed and appropriate changes in these medications as dictated in the interval history and assessment and plan. Objective - Vital Signs Vital signs: Vital Signs Temp 97.6 F 09/23/20 05:00 Pulse 89 09/23/20 05:00 Resp 20 09/23/20 05:00 BP 145/88 09/23/20 05:00 Pulse Ox 95 09/23/20 05:00 Intake & Output 09/22/20 09/23/20 09/23/20 18:59 06:59 18:59 Intake Total 720 200 Balance 720 200 Intake: Oral 720 200 Other: Voiding Method Urinal Urinal Incontinent # Voids 4 3 - Exam GENERAL: The patient is alert and oriented x3, not in any acute distress. Well developed, well nourished. Currently sitting up in the chair with back brace noted HEENT: Pupils are round and equally reacting to light. EOMI. No scleral icterus. No conjunctival pallor. Normocephalic, atraumatic. No pharyngeal erythema. No thyromegaly. CARDIOVASCULAR: S1 and S2 present. No murmurs, rubs, or gallops. PULMONARY: Chest is clear to auscultation, no wheezing or crackles. ABDOMEN: Soft, nontender, nondistended, normoactive bowel sounds. No palpable organomegaly. MUSCULOSKELETAL: Deferred to orthopedic surgery EXTREMITIES: No cyanosis, clubbing, or pedal edema. Lower extremities elevated NEUROLOGICAL: Gross neurological examination did not reveal any focal deficits. SKIN: No rashes. - Labs CBC & Chem 7: 09/21/20 09:10 09/21/20 09:10 Assessment and Plan Plan: -T9 vertebral body fracture fracture: Patient is a low operative risk for this surgery. Presently patient has a TLSO brace. 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 fib patient is presently rate and rate controlled patient does have a pacemaker. Patient is on Eliquis which is being held for potential surgery this Thursday -Hypertension -Obesity -Coronary artery disease For above-mentioned chronic medical problems patient will be resumed on appropriate home medications Plan: Continue with current medications and aggressive physical therapy. Patient has been up in the chair at least 3 times per day. Patient tolerating diet with no reports of nausea or vomiting noted.
[2020-09-24] MEDS: HYDROmorphone 1 MG/ML 1 ML SYRINGE IVP PRN ×3 (05:16→23:48)
[2020-09-24 05:24] LABS: Basophils % (A) 0 %; Eosinophils # (A) 0.1 k/uL (0-0.7); Eosinophils % (A) 1 %; HGB 15.2 gm/dL (13.0-17.5); Lymphocytes # (A) 0.1 k/uL (1.0-4.8); Lymphocytes % (A) 1 %; MCH 30.2 pg (25.0-35.0); MCHC 32.3 g/dL (31.0-37.0); MCV 93.3 fL (80.0-100.0); Monocytes # (A) 0.5 k/uL (0-1.0); Monocytes % (A) 5 %; Neutrophils # (A) 9.7 k/uL (1.3-7.7); Neutrophils % (A) 92 %; RBC 5.04 m/uL (4.30-5.90); RDW 15.3 % (11.5-15.5); WBC 10.5 k/uL (3.8-10.6)
[2020-09-24 06:46] LABS: ALT 25 U/L (4-49); AST 26 U/L (17-59); African American GFR (CKD) >90 (>60 ml/min/1.73 sqM); Albumin 2.8 g/dL (3.5-5.0); Albumin/Globulin Ratio 1.2; Alkaline Phosphatase 100 U/L (38-126); Anion Gap 4 mmol/L; Blood Urea Nitrogen 15 mg/dL (9-20); Calcium 8.3 mg/dL (8.4-10.2); Carbon Dioxide 28 mmol/L (22-30); Chloride 102 mmol/L (98-107); Globulin 2.4 g/dL; Glucose 148 mg/dL (74-99); Non-African American GFR(CKD) >90 (>60 ml/min/1.73 sqM); Sodium 134 mmol/L (137-145); Total Bilirubin 1.5 mg/dL (0.2-1.3); Total Protein 5.2 g/dL (6.3-8.2)
[2020-09-24] MEDS: FAMOTIDINE 20 MG TAB PO SCH (07:20)
[2020-09-24] MEDS: ENOXAPARIN 40 MG/0.4 ML SYRINGE SQ SCH (07:20)
[2020-09-24] MEDS: SENNOSIDES 8.6 MG TAB PO SCH ×2 (07:20→20:30)
[2020-09-24] MEDS: oxyCODONE ER 20 MG TAB.ER.12H PO PRN ×2 (07:20→20:30)
[2020-09-24] MEDS: CYCLOBENZAPRINE 10 MG TAB PO PRN ×2 (07:20→20:30)
[2020-09-24] MEDS: carvediloL 3.125 MG TAB PO SCH ×2 (07:20→16:31)
[2020-09-24] MEDS: PANTOPRAZOLE 40 MG TABLET PO SCH (07:20)
[2020-09-24 09:28] LABS: INR 1.04 (0.90-1.11); Prothrombin Time 11.3 sec (9.9-11.9)
--- NOTE | 2020-09-24 12:47 | P.PN ---
Subjective Progress Note Date: 09/24/20 Patient seen and examined this morning. He has not been out of bed for most of the weekend per nursing and has not been out today. TLSO used when up and about. Thursday was a better day as he was up in chair Walked about 250 feet on Thursday but not without pain and needing rests about every 50-80 ft per PT. He was started on Fentanyl patch around this time, but dc due to making him feel sick. He is still taking a lot of IV meds for pain control and Oxy does not seem to help on its own. He denies any new numbness or tingling. States his RLE "goes out" now and then when he walks. He is using knee immobilizer when up. His was was in room over the weekend. I will speak to her over the phone today. Denies any fevers chills shortness of breath or chest pain. He denies any weakness in his lower extremities he denies any heavy feeling. He does complain of a heavy feeling on his got in his stomach however around his bellybutton. He denies any perineal numbness or tingling. He has not had a recent bowel movement he has been impeding appropriately. Knee immobilizer which does help with his pain as well as ice. He denies any fevers chills shortness of breath or chest pain at this time. Pulmonology cardiology medicine and oncology notes reviewed and appreciated Objective - Vital Signs Vital signs: Vital Signs Temp 98.0 F 09/24/20 12:24 Pulse 84 09/24/20 12:24 Resp 16 09/24/20 12:24 BP 127/82 09/24/20 12:24 Pulse Ox 96 09/24/20 12:24 Intake & Output 09/23/20 09/24/20 09/24/20 18:59 06:59 18:59 Intake Total 1080 Output Total 600 Balance 1080 -600 Weight 131.542 kg Intake: Oral 1080 Output: Urine 600 Other: Voiding Method Bedside Commode Bedside Commode Urinal Urinal Urinal Incontinent Incontinent # Voids 3 - Exam PHYSICAL EXAMINATION: Vitals: Stable at this time General: Awake, alert, appropriate for age, in no acute distress. HEENT: No unusual neck masses around region of lateral neck triangle, thyroid, supraclavicular groove. Heart: Regular rate and rhythm, normal S1, S2 and no murmur/gallop. Lungs: Clear to auscultation bilaterally with no use of accessory muscles. Extremities: Skin warm and dry without no acute lesions, coloration, temperature, skin intact, no tenderness or erythema. Integument: Hairy patches: Absent Dorsal skin dimples: Absent Cafe au lait spots: Absent Surgical incisions: Palpation: Please see Pain drawing on Intake sheet for further detail. (Tenderness = T, Nontender = NT, Swelling = S, Ecchymosis = E) Findings on Midline and paraspinal palpation and percussion: Cervical: NT Thoracic: Tenderness to palpation or ballottement midline and paraspinal Lumbar: Tennis to palpation in the upper portion however not in the lower portion at this time Sacral: NT Special findings: None Vital extremity exam is stable right knee exam is stable VASCULAR STATUS : Wrist Pulses: 2/4 bilateral radial and ulnar Pedal Pulses: 2/4 bilateral DP and PT Color: Normal with some redness Edema: BL LE, 1+ pitting NEUROLOGIC EXAMINATION: Mental Status: Awake and alert, fully oriented, with normal attention, concentration and memory, and fluent, appropriate speech. Cranial Nerves: I: Olfactory not tested. II: Visual acuity normal, no visual field deficit noted with confrontation. III,IV: Normal pupillary reflexes & intact extraocular movements without nystagmus. V,: Intact symmetrical facial sensation. VII: Intact symmetrical facial motor movement VIII: Hearing intact. IX,X: Intact gag, swallow, & normal voice. XI: Sternocleidomastoid, trapezius function intact. XII: Tongue midline with normal movements. Special Tests: L'hermitte's Sign: Absent Spurling'Sign: Absent Bilateral Cubital percussion test: Absent Bilateral Jossue-Tinel sign - Carpal region: Absent Bilateral Straight Leg Raising: Absent Bilateral Motor Exam (0-5/5, N/T) STRENGTH UPPER EXTREMITY Shoulder Abd (Not part of [place] Motor score): RIGHT 5 LEFT 5 Elbow Flexors: RIGHT 5 LEFT 5 Elbow Extensor: RIGHT 5 LEFT 5 Wrrist Dorsiflexors: RIGHT 5 LEFT 5 Finger Abductor: RIGHT 5 LEFT 5 Translator And Interpreter: RIGHT 5 LEFT 5 LOWER EXTREMITY Hip Flexor (Not part of [place] Motor Score): RIGHT 4+ LEFT 5 Knee Flexor: RIGHT 4+ LEFT 5 Knee Extensor: RIGHT 4+ LEFT 5 Ankle Dorsiflexion: RIGHT 5 LEFT 5 Ankle Plantarflexion: RIGHT 5 LEFT 5 EHL: RIGHT 4+ LEFT 5 FHL: RIGHT 5 LEFT 5 REFLEXES Biecp: RIGHT 2 LEFT 2 Tricep: RIGHT 2 LEFT 2 Brachioradialis: RIGHT 2 LEFT 2 Patellar: RIGHT 2 LEFT 2 Achilles: RIGHT 2 LEFT 2 Pathological Reflexes Santamaria's: RIGHT Absent LEFT Absent Babinski: RIGHT Absent LEFT Absent Clonus: RIGHT None LEFT None SENSORY Joint Position: Intact bilaterally Vibration Intact bilaterally Pain and LT sense Intact C5-T1 and L2-S1 Dermatomal deficit None Gait and Functional Evaluation: Ambulatory aids: Walker and TLSO Hand and finger dexterity intact bilaterally. Disdiadochokinesis examination negative bilaterally. - Constitutional General appearance: Present: morbidly obese - Labs CBC & Chem 7: 09/24/20 04:28 09/24/20 06:11 Labs: Abnormal Lab Results - Last 24 Hours (Table) 09/24/20 09/24/20 Range/Units 04:28 06:11 Neutrophils # 9.7 H (1.3-7.7) k/uL Lymphocytes # 0.1 L (1.0-4.8) k/uL Sodium 134 L (137-145) mmol/L Creatinine 0.49 L (0.66-1.25) mg/dL Glucose 148 H (74-99) mg/dL Calcium 8.3 L (8.4-10.2) mg/dL Total Bilirubin 1.5 H (0.2-1.3) mg/dL Total Protein 5.2 L (6.3-8.2) g/dL Albumin 2.8 L (3.5-5.0) g/dL Assessment and Plan Assessment: 1. T9 and T10 acute split-type fractures, chance-type fractures no posterior column involvement evident, MRI not possible secondary to stents and pacemaker. Continued pain despite conservative management physical therapy and bracing medications. Increasing need for narcotic medications 2. Status post T10 kyphoplasty 3. Status post fall from standing 4. Lung carcinoma with metastasis status post radiation 5. Complex medical patient with significant cardiovascular respiratory history Plan: -Medicine consult cardiology consult oncology and pulmonology consults appreciated -Hold anticoagulation -Nothing by mouth at midnight -monitor neuro status, and bowel status -Pain control -GI prophylaxis -TLSO when up and about at all times -PT OT with aggressive ambulation protocol out of bed with all meals up and about 4 times a day with brace at all times when up and about -Teds, SCDs Discussed at length surgically surgical versus nonsurgical options with the patient and his . Patient states that he is very tentative about surgery but he cannot seem to go on like this. We will give him a chance now over a week to improve with therapy and medications pain seems to be taking steps backwards and forwards. There is still an option of going to a rehab facility in trying to get better but I feel that with his failure to thrive with therapy M bracing that I do not know how much more he can get from conservative measures at this time he understands this. While he is not excited about surgery he understands if it needs to be done he is willing to do it. We will have further conversations with his . Right now we are still planning on surgical intervention tomorrow Time with Patient: Greater than 30
--- NOTE | 2020-09-24 14:15 | P.PN ---
Subjective Progress Note Date: 09/24/20 Principal diagnosis: Metastatic Cancer Objective - Vital Signs Vital signs: Vital Signs Temp 98.0 F 09/24/20 12:24 Pulse 84 09/24/20 12:24 Resp 16 09/24/20 12:24 BP 127/82 09/24/20 12:24 Pulse Ox 96 09/24/20 12:24 Intake & Output 09/23/20 09/24/20 09/24/20 18:59 06:59 18:59 Intake Total 1080 Output Total 600 Balance 1080 -600 Weight 131.542 kg Intake: Oral 1080 Output: Urine 600 Other: Voiding Method Bedside Commode Bedside Commode Urinal Urinal Urinal Incontinent Incontinent # Voids 3 - Exam - Constitutional General appearance: cooperative, no acute distress - EENT Eyes: EOMI, PERRLA ENT: hard of hearing, NA/AT - Neck Neck: normal ROM - Respiratory Respiratory: bilateral: diminished - Cardiovascular Rhythm: regular leg Peripheral Edema: bilateral: 2+ - Gastrointestinal General gastrointestinal: soft - Integumentary Integumentary: pale - Neurologic RYAN due to pain - Musculoskeletal Musculoskeletal: generalized weakness - Psychiatric Psychiatric: A&O x's 3 - Labs CBC & Chem 7: 09/24/20 04:28 09/24/20 06:11 Labs: Abnormal Lab Results - Last 24 Hours (Table) 09/24/20 09/24/20 Range/Units 04:28 06:11 Neutrophils # 9.7 H (1.3-7.7) k/uL Lymphocytes # 0.1 L (1.0-4.8) k/uL Sodium 134 L (137-145) mmol/L Creatinine 0.49 L (0.66-1.25) mg/dL Glucose 148 H (74-99) mg/dL Calcium 8.3 L (8.4-10.2) mg/dL Total Bilirubin 1.5 H (0.2-1.3) mg/dL Total Protein 5.2 L (6.3-8.2) g/dL Albumin 2.8 L (3.5-5.0) g/dL Assessment and Plan Plan: Assessment and Recommendations: Recurrent Non-Small Cell Lung Ca: With recent progression to bone/spine - Status post radiation therapy - Will send path for molecular NGS Recent Fall with Multiple pathological fractures: - T9 and T10 Fractures, unable to perform MRI due to stents and pacer - Cleared from oncology standpoint for surgery. - At this time no improvements appear to be made with conservative approach, review of ortho surg notes and planning on intervention tomorrow Neoplastic related pain: - Increased need for narcotics - Cowel regimen increased Physician attest: I have completed the full history and physical and agree with above dication, dictated as a scribe.
--- NOTE | 2020-09-24 14:42 | CT ---
EXAMINATION TYPE: CT thor lumbar spine wo con DATE OF EXAM: 09/24/2020 COMPARISON: 09/18/2020 HISTORY: Severe back pain, hx of cancer. CT DLP: 1651 mGycm Automated exposure control for dose reduction was used. Contrast: None Technique: Axial images 3 mm thick sections. Reconstructed images in the coronal and sagittal planes. FINDINGS: Note is made of uncovertebral joint hypertrophy at C6-7 causing severe foraminal stenosis. There is a T10 vertebroplasty. T10 vertebral body fractures are evident. The structures are osteopeni c suggestive of underlying lytic lesion. The L5 level some lucency may extend through the transverse process and/or the pedicles. Correlate fo r metastatic disease. Some degenerative changes noted at the facets. Lumbar spine disc height and vertebral body heights appear preserved. Some disc space narrowing withi n the mid thoracic spine is evident. T10 level vertebral body height appears preserved. Paraspinal re gions through the thoracic and lumbar spine appear normal. Note is made of multiple metastatic lesions within the bilateral lung olguin. A left inferior pole re nal stone is noted. IMPRESSION: 1. APPEARS TO BE COMPRESSION FRACTURE WITHOUT LOSS OF VERTEBRAL BODY HEIGHT AT THE T10 VERTEBROPLASTY LEVEL. CORRELATE FOR A METASTATIC LESION AT THIS LEVEL. 2. MULTIPLE METASTATIC LESIONS WITHIN THE LUNG OLGUIN. 3. LEFT RENAL STONE
--- NOTE | 2020-09-24 15:49 | P.PN ---
Subjective Progress Note Date: 09/24/20 - Reason for Consult Metastatic lung cancer, preoperative clearance - History of Present Illness 80-year-old pleasant male fairly functional before his severe back pain secondary to metastatic lung cancer. Patient is admitted secondary to fall found to have fracture of the T9 vertebral body. Orthotic surgery evaluation there are planning on stimulation his surgery for this vertebral body. Patient appears to have a pathological fracture patient is also found to have right knee strain without any fracture and knee effusion. Patient had multiple hospital physicians recently for severe back pain for which patient had a biopsy which showed metastatic metastatic non-small cell lung cancer for which patient is presently receiving radiation therapy patient had a recent kyphoplasty of pathological fracture of T10 vertebral body. Patient is a well-known and very pleasant gentleman does have some medical problems including obesity hypoventilation syndrome and sleep apnea. 09/21/2020 Patient is seen and evaluated in follow-up with no acute overnight issues. Does have his back brace on and is currently sitting up in the chair with family at the bedside. Patient is attempting for aggressive physical therapy and getting up and sitting in the chair at least 3 times per day. We are currently following along with orthopedic surgery and possible tentative surgery next Thursday if patient's progression with physical therapy does not help. Patient is attempting to avoid surgery if possible. 09/22/2020 Patient the started having pain again pain management is managing the patient patient was started back on fentanyl patch 09/23/2020 Patient's the pain is better. Patient had bowel movement today. 09/24/2020 Patient is seen and evaluated in follow-up and reports to having some increased back pain. Patient is tentatively scheduled for surgical intervention in the morning. Will hold Lovenox after today and patient will be nothing by mouth at midnight. Repeat labs today within normal limits. Patient denies any chest pain or palpitations. Patient is afebrile. Review of systems: Constitutional: No reports of fatigue, fever, or chills Cardiovascular: No reports of chest pain or palpitations Respiratory: No reports of shortness of breath or cough GI: No reports of nausea, vomiting, or diarrhea : No reports of dysuria or retention Neurovascular: rePorts generalized weakness and continued back pain All medications have been reviewed Objective - Vital Signs Vital signs: Vital Signs Temp 97.8 F 09/24/20 05:00 Pulse 64 09/24/20 05:00 Resp 20 03/22/21 05:00 BP 143/82 09/24/20 05:00 Pulse Ox 97 09/24/20 05:00 Intake & Output 09/23/20 09/24/20 09/24/20 18:59 06:59 18:59 Intake Total 1080 Output Total 600 Balance 1080 -600 Weight 131.542 kg Intake: Oral 1080 Output: Urine 600 Other: Voiding Method Bedside Commode Bedside Commode Urinal Urinal Urinal Incontinent Incontinent # Voids 3 - Exam GENERAL: The patient is alert and oriented x3, not in any acute distress. Well developed, well nourished. Currently sitting up in the chair with back brace noted HEENT: Pupils are round and equally reacting to light. EOMI. No scleral icterus. No conjunctival pallor. Normocephalic, atraumatic. No pharyngeal erythema. No thyromegaly. CARDIOVASCULAR: S1 and S2 present. No murmurs, rubs, or gallops. PULMONARY: Chest is clear to auscultation, no wheezing or crackles. ABDOMEN: Soft, nontender, nondistended, normoactive bowel sounds. No palpable organomegaly. MUSCULOSKELETAL: Deferred to orthopedic surgery EXTREMITIES: No cyanosis, clubbing, or pedal edema. Lower extremities elevated NEUROLOGICAL: Gross neurological examination did not reveal any focal deficits. SKIN: No rashes. - Labs CBC & Chem 7: 09/24/20 04:28 09/24/20 06:11 Labs: Abnormal Lab Results - Last 24 Hours (Table) 09/24/20 09/24/20 Range/Units 04:28 06:11 Neutrophils # 9.7 H (1.3-7.7) k/uL Lymphocytes # 0.1 L (1.0-4.8) k/uL Sodium 134 L (137-145) mmol/L Creatinine 0.49 L (0.66-1.25) mg/dL Glucose 148 H (74-99) mg/dL Calcium 8.3 L (8.4-10.2) mg/dL Total Bilirubin 1.5 H (0.2-1.3) mg/dL Total Protein 5.2 L (6.3-8.2) g/dL Albumin 2.8 L (3.5-5.0) g/dL Assessment and Plan Assessment: -T9 vertebral body fracture fracture: Patient is a low operative risk for this surgery. 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 fib patient is presently rate and rate controlled patient does have a pacemaker. Patient is on Eliquis which is being held for potential surgery in the a.m. -Hypertension -Obesity -Coronary artery disease Plan: Continue with current medications and aggressive physical therapy. Patient has been up in the chair at least 3 times per day throughout the weekend. Per nursing staff patient is having increasing back discomfort and has not been out of bed yet today. Patient tolerating diet with no reports of nausea or vomiting noted. Patient tentatively scheduled for surgical intervention in the morning. Will hold Lovenox after today. Further recommendations to follow based on the c linical course of the patient. Thank you for this consultation.
[2020-09-24] MEDS: traMADol 50 MG TAB PO PRN ×2 (16:31→23:48)
[2020-09-24] MEDS: ALPRAZolam 0.25 MG TAB PO PRN (23:48)
[2020-09-25] MEDS: LACTATED RINGERS 1,000 ML IV SCH ×3 (00:31→20:10)
[2020-09-25] MEDS ORDERED: fentaNYL (PF) 50 MCG/ML 2 ML AMP IV PRN (05:00)
[2020-09-25] MEDS: HYDROmorphone 1 MG/ML 1 ML SYRINGE IVP PRN (06:01)
[2020-09-25] MEDS: SENNOSIDES 8.6 MG TAB PO SCH ×2 (08:26→20:48)
[2020-09-25] MEDS: PANTOPRAZOLE 40 MG TABLET PO SCH (08:26)
[2020-09-25] MEDS: carvediloL 3.125 MG TAB PO SCH ×2 (08:37→18:52)
[2020-09-25] MEDS ORDERED: IV FLUID CONTINUATION 1,000 ML IV ONE (10:00)
[2020-09-25] MEDS ORDERED: VANCOMYCIN 2,000 MG in SODIUM CHLORIDE 0.9% 500 ML 500 ML IVPB ONE (10:06)
[2020-09-25] MEDS ORDERED: TRANEXAMIC ACID 1,000 MG in SODIUM CHLORIDE 0.9% 100 ML IVPB ONE ×6 (10:30→14:00)
[2020-09-25] MEDS ORDERED: SUCCINYLCHOLINE CHLORIDE 100 MG/5 ML SYR IV ONE (10:34)
[2020-09-25] MEDS ORDERED: ROCURONIUM 10 MG/ML (5 ML VIAL) IV ONE (10:34)
[2020-09-25] MEDS ORDERED: NEOSTIGMINE 1 MG/ML 10 ML VIAL ONE (10:34)
[2020-09-25] MEDS ORDERED: MIDAZOLAM 2 MG/2 ML VIAL ONE (10:34)
[2020-09-25] MEDS ORDERED: fentaNYL (PF) 50 MCG/ML 2 ML AMP ONE (10:34)
[2020-09-25] MEDS ORDERED: FUROSEMIDE 10 MG/ML 2 ML VIAL ONE (10:34)
[2020-09-25] MEDS ORDERED: PROPOFOL 10 MG/ML 20 ML VIAL IV ONE (10:34)
[2020-09-25] MEDS ORDERED: PHENYLEPHRINE-0.9% NACL SYG 1,000 MCG/10 ML SYRINGE ONE (10:34)
[2020-09-25] MEDS ORDERED: SODIUM CHLORIDE 0.9% 100 ML BAG ONE (10:34)
[2020-09-25] MEDS ORDERED: TRANEXAMIC ACID 1,000 MG/10 ML VIAL ONE (10:34)
[2020-09-25] MEDS ORDERED: HYDROmorphone (PF) 1 MG/ML ONE (10:34)
[2020-09-25] MEDS ORDERED: GLYCOPYRROLATE 0.2 MG/ML 2 ML VIAL ONE (10:34)
[2020-09-25] MEDS ORDERED: ALBUMIN HUMAN 5% (12.5gm) 250 ML BOTTLE IVPB ONE (10:34)
--- NOTE | 2020-09-25 10:49 | P.PN ---
Subjective Progress Note Date: 09/25/20 Pt s/e in PACU this AM. He is more with it this AM. He is still having a lot of back pain, is unable to get out of bed secondary to this as. He is very painful with any manipulation or movement. Denies any bowel or bladder issues. States no perineal numbness or tingling at this time. Denies any F/C/SOB/CP. Objective - Vital Signs Vital signs: Vital Signs Temp 97.6 F 09/25/20 10:01 Pulse 71 09/25/20 10:01 Resp 16 09/25/20 05:05 BP 126/71 09/25/20 10:01 Pulse Ox 95 09/25/20 10:07 Intake & Output 09/24/20 09/25/20 09/25/20 18:59 06:59 18:59 Intake Total 240 Output Total 300 Balance -60 Weight 131.542 kg Intake: Oral 240 Output: Urine 300 Other: Voiding Method Urinal Urinal # Voids 3 - Exam Exam stable PHYSICAL EXAMINATION: Vitals: Stable at this time General: Awake, alert, appropriate for age, in no acute distress. HEENT: No unusual neck masses around region of lateral neck triangle, thyroid, supraclavicular groove. Heart: Regular rate and rhythm, normal S1, S2 and no murmur/gallop. Lungs: Clear to auscultation bilaterally with no use of accessory muscles. Extremities: Skin warm and dry without no acute lesions, coloration, temperature, skin intact, no tenderness or erythema. Integument: Hairy patches: Absent Dorsal skin dimples: Absent Cafe au lait spots: Absent Surgical incisions: Palpation: Please see Pain drawing on Intake sheet for further detail. (Tenderness = T, Nontender = NT, Swelling = S, Ecchymosis = E) Findings on Midline and paraspinal palpation and percussion: Cervical: NT Thoracic: Tenderness to palpation or ballottement midline and paraspinal Lumbar: Tennis to palpation in the upper portion however not in the lower portion at this time Sacral: NT Special findings: None Vital extremity exam is stable right knee exam is stable VASCULAR STATUS : Wrist Pulses: 2/4 bilateral radial and ulnar Pedal Pulses: 2/4 bilateral DP and PT Color: Normal with some redness Edema: BL LE, 1+ pitting NEUROLOGIC EXAMINATION: Mental Status: Awake and alert, fully oriented, with normal attention, concentration and memory, and fluent, appropriate speech. Cranial Nerves: I: Olfactory not tested. II: Visual acuity normal, no visual field deficit noted with confrontation. III,IV: Normal pupillary reflexes & intact extraocular movements without nystagmus. V,: Intact symmetrical facial sensation. VII: Intact symmetrical facial motor movement VIII: Hearing intact. IX,X: Intact gag, swallow, & normal voice. XI: Sternocleidomastoid, trapezius function intact. XII: Tongue midline with normal movements. Special Tests: L'hermitte's Sign: Absent Spurling'Sign: Absent Bilateral Cubital percussion test: Absent Bilateral Jossue-Tinel sign - Carpal region: Absent Bilateral Straight Leg Raising: Absent Bilateral Motor Exam (0-5/5, N/T) STRENGTH UPPER EXTREMITY Shoulder Abd (Not part of [place] Motor score): RIGHT 5 LEFT 5 Elbow Flexors: RIGHT 5 LEFT 5 Elbow Extensor: RIGHT 5 LEFT 5 Wrrist Dorsiflexors: RIGHT 5 LEFT 5 Finger Abductor: RIGHT 5 LEFT 5 Shredder Operator: RIGHT 5 LEFT 5 LOWER EXTREMITY Hip Flexor (Not part of [place] Motor Score): RIGHT 4+ LEFT 5 Knee Flexor: RIGHT 4+ LEFT 5 Knee Extensor: RIGHT 4+ LEFT 5 Ankle Dorsiflexion: RIGHT 5 LEFT 5 Ankle Plantarflexion: RIGHT 5 LEFT 5 EHL: RIGHT 4+ LEFT 5 FHL: RIGHT 5 LEFT 5 REFLEXES Biecp: RIGHT 2 LEFT 2 Tricep: RIGHT 2 LEFT 2 Brachioradialis: RIGHT 2 LEFT 2 Patellar: RIGHT 2 LEFT 2 Achilles: RIGHT 2 LEFT 2 Pathological Reflexes Santamaria's: RIGHT Absent LEFT Absent Babinski: RIGHT Absent LEFT Absent Clonus: RIGHT None LEFT None SENSORY Joint Position: Intact bilaterally Vibration Intact bilaterally Pain and LT sense Intact C5-T1 and L2-S1 Dermatomal deficit None Gait and Functional Evaluation: Ambulatory aids: Walker and TLSO Hand and finger dexterity intact bilaterally. Disdiadochokinesis examination negative bilaterally. - Labs CBC & Chem 7: 09/24/20 04:28 09/24/20 06:11 - Imaging and Cardiology CT scan shows no acute interval changes still T9 and 10 fractures. No interval displacement or deformity noted. Some gapping of the T10 cement from bone. Reminder of the exam is stable. Assessment and Plan Assessment: 1. T9 and T10 acute split-type fractures, chance-type fractures no posterior column involvement evident, MRI not possible secondary to stents and pacemaker. Continued pain despite conservative management physical therapy and bracing medications. Increasing need for narcotic medications 2. Status post T10 kyphoplasty 3. Status post fall from standing 4. Lung carcinoma with metastasis status post radiation 5. Complex medical patient with significant cardiovascular respiratory history Plan: -Medicine consult cardiology consult oncology and pulmonology clearances appreciated -Hold anticoagulation -Nothing by mouth at midnight confirmed -monitor neuro status, and bowel status -Pain control -GI prophylaxis -Vanco pre op -TXA infusion intra op -likely ICU admission after surgery.
[2020-09-25] MEDS ORDERED: THROMBIN (BOVINE) 5,000 UNIT VIAL TOPICAL ONE (12:08)
[2020-09-25] MEDS ORDERED: BUPIVACAINE (PF) 0.25% 30 ML VIAL SQ ONE (12:09)
[2020-09-25] MEDS ORDERED: LIDOCAINE 1%-EPI 1:100,000 20 ML VIAL SQ ONE (12:09)
[2020-09-25] MEDS ORDERED: GELATIN SPONGE,ABSORB (LARGE) 1 EACH SPONGE TOPICAL ONE (12:09)
[2020-09-25] MEDS ORDERED: ceFAZolin 2,000 MG in SODIUM CHLORIDE 0.9% 1,000 ML IRRIGATION ONE ×3 (12:10→15:42)
[2020-09-25] MEDS ORDERED: LACTATED RINGERS 1,000 ML IV ONE ×2 (12:15→15:25)
--- NOTE | 2020-09-25 14:54 | P.PN ---
Subjective Progress Note Date: 09/25/20 - Reason for Consult Metastatic lung cancer, preoperative clearance - History of Present Illness 80-year-old pleasant male fairly functional before his severe back pain secondary to metastatic lung cancer. Patient is admitted secondary to fall found to have fracture of the T9 vertebral body. Orthotic surgery evaluation there are planning on stimulation his surgery for this vertebral body. Patient appears to have a pathological fracture patient is also found to have right knee strain without any fracture and knee effusion. Patient had multiple hospital physicians recently for severe back pain for which patient had a biopsy which showed metastatic metastatic non-small cell lung cancer for which patient is presently receiving radiation therapy patient had a recent kyphoplasty of pathological fracture of T10 vertebral body. Patient is a well-known and very pleasant gentleman does have some medical problems including obesity hypoventilation syndrome and sleep apnea. 09/21/2020 Patient is seen and evaluated in follow-up with no acute overnight issues. Does have his back brace on and is currently sitting up in the chair with family at the bedside. Patient is attempting for aggressive physical therapy and getting up and sitting in the chair at least 3 times per day. We are currently following along with orthopedic surgery and possible tentative surgery next Thursday if patient's progression with physical therapy does not help. Patient is attempting to avoid surgery if possible. 09/22/2020 Patient the started having pain again pain management is managing the patient patient was started back on fentanyl patch 09/23/2020 Patient's the pain is better. Patient had bowel movement today. 09/24/2020 Patient is seen and evaluated in follow-up and reports to having some increased back pain. Patient is tentatively scheduled for surgical intervention in the morning. Will hold Lovenox after today and patient will be nothing by mouth at midnight. Repeat labs today within normal limits. Patient denies any chest pain or palpitations. Patient is afebrile. 09/25/2020 Patient was seen and evaluated this morning prior to being taken for surgery this morning with no acute overnight issues. Lovenox was held and patient is nothing by mouth. Will await surgical report and repeat a.m. labs and continue to monitor closely. Patient will be returning to the ICU for close monitoring status post surgery. Review of systems: Constitutional: No reports of fatigue, fever, or chills Cardiovascular: No reports of chest pain or palpitations Respiratory: No reports of shortness of breath or cough GI: No reports of nausea, vomiting, or diarrhea : No reports of dysuria or retention Neurovascular: reports generalized weakness and continued back pain All medications have been reviewed Objective - Vital Signs Vital signs: Vital Signs Temp 97.6 F 09/25/20 10:01 Pulse 71 09/25/20 10:01 Resp 16 09/25/20 05:05 BP 126/71 09/25/20 10:01 Pulse Ox 95 09/25/20 10:07 Intake & Output 09/24/20 09/25/20 09/25/20 18:59 06:59 18:59 Intake Total 240 Output Total 300 Balance -60 Weight 131.542 kg Intake: Oral 240 Output: Urine 300 Other: Voiding Method Urinal Urinal # Voids 3 - Exam GENERAL: The patient is alert and oriented x3, not in any acute distress. Well developed, well nourished. HEENT: Pupils are round and equally reacting to light. EOMI. No scleral icterus. No conjunctival pallor. Normocephalic, atraumatic. No pharyngeal erythema. No thyromegaly. CARDIOVASCULAR: S1 and S2 present. No murmurs, rubs, or gallops. PULMONARY: Chest is clear to auscultation, no wheezing or crackles. ABDOMEN: Soft, nontender, nondistended, normoactive bowel sounds. No palpable organomegaly. MUSCULOSKELETAL: Deferred to orthopedic surgery EXTREMITIES: No cyanosis, clubbing, or pedal edema. Lower extremities elevated NEUROLOGICAL: Gross neurological examination did not reveal any focal deficits. SKIN: No rashes. - Labs CBC & Chem 7: 09/24/20 04:28 09/24/20 06:11 Assessment and Plan Assessment: -T9 vertebral body fracture fracture: Patient is a low operative risk for this surgery. 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 fib patient is presently rate and rate controlled patient does have a pacemaker. Patient is on Eliquis which is being held for potential surgery in the a.m. -Hypertension -Obesity -Coronary artery disease Plan: Continue with current medications and aggressive physical therapy. Patient being taken for orthopedic surgical intervention. Patient is nothing by mouth for the procedure and will resume diet and discuss with orthopedics regarding anticoagulation after the procedure. Will continue to follow along closely with orthopedic surgery. Will repeat a.m. labs. Further recommendations to follow based on the clinical course of the patient. Thank you for this consultation.
[2020-09-25] MEDS ORDERED: VANCOMYCIN 1,000 MG VIAL MISCELLANE ONE ×2 (15:43)
[2020-09-25] MEDS ORDERED: TOBRAMYCIN SULFATE 1.2 GM VIAL MISCELLANE ONE (15:43)
--- NOTE | 2020-09-25 16:18 | FL ---
EXAMINATION TYPE: FL guidance operating room, XR thoracic spine 2V DATE OF EXAM: 09/25/2020 CLINICAL HISTORY: Back pain TECHNIQUE: Fluoroscopy. COMPARISON: CT from yesterday. Thoracic spine 2 view x-ray FINDINGS: Fluoroscopic guidance was provided during spinal fusion procedure performed by Dr. Goodman partida. A total of 1 minute 50 seconds of fluoroscopic time was utilized during the procedure and four spot images was acquired. Intraoperative images obtained show placement of a posterior interpedicular rods and screws in the th oracolumbar spine from roughly T6-L1 levels with 2 level vertebroplasty. IMPRESSION: As Above.
--- NOTE | 2020-09-25 16:52 | P.PN ---
Subjective Progress Note Date: 09/25/20 Principal diagnosis: Metastatic Cancer Plan for surgery today Objective - Vital Signs Vital signs: Vital Signs Temp 97.6 F 09/25/20 10:01 Pulse 71 09/25/20 10:01 Resp 16 09/25/20 05:05 BP 126/71 09/25/20 10:01 Pulse Ox 95 09/25/20 10:07 Intake & Output 09/24/20 09/25/20 09/25/20 18:59 06:59 18:59 Intake Total 240 2303 Output Total 300 Balance -60 2303 Weight 131.542 kg Intake: IV 2303 Oral 240 Output: Urine 300 Other: Voiding Method Urinal Urinal # Voids 3 - Exam - Constitutional General appearance: cooperative, no acute distress - EENT Eyes: EOMI, PERRLA ENT: hard of hearing, NA/AT - Neck Neck: normal ROM - Respiratory Respiratory: bilateral: diminished - Cardiovascular Rhythm: regular leg Peripheral Edema: bilateral: 2+ - Gastrointestinal General gastrointestinal: soft - Integumentary Integumentary: pale - Neurologic RYAN due to pain - Musculoskeletal Musculoskeletal: generalized weakness - Psychiatric Psychiatric: A&O x's 3 - Labs CBC & Chem 7: 09/24/20 04:28 09/24/20 06:11 Assessment and Plan Plan: Assessment and Recommendations: Recurrent Non-Small Cell Lung Ca: With recent progression to bone/spine - Status post radiation therapy - Will send path for molecular NGS Recent Fall with Multiple pathological fractures: - T9 and T10 Fractures, unable to perform MRI due to stents and pacer - Cleared from oncology standpoint for surgery. - At this time no improvements planning on intervention today Neoplastic related pain: - Increased need for narcotics - Bowel regimen increased Physician attest: I have completed the full history and physical and agree with above dication, dictated as a scribe.
[2020-09-25] MEDS ORDERED: propofoL 100 ML IV ONE (17:39)
[2020-09-25 17:45] LABS: Glucose,Whole Blood 99 mg/dL (75-99)
[2020-09-25] MEDS ORDERED: VANCOMYCIN IV PER PHARMACY 1 EACH MISC MISCELLANE PRN (17:53)
--- NOTE | 2020-09-25 17:53 | P.PN ---
Progress Note - Text Progress Note Date: 09/25/20 Pt transferred to the ICU without issues. He is maintaining pressures without pressure support. He is needing ventilatory assistance at this time. He otherwise did well from surgery and he is still waking up from surgery. Spoke to and updated her on his condition and surgery. Appreciate ICU care -Maintain MAP >75 -SBT in AM per ICU -Pain control PRN -CT scan of the thoracolumbar spine when extubated -IFV as apprpriate -Trend labs, Transfuse PRN -Gi ppx -Lovenox can resume 09/26/20 PM -Post op ABX, Vancomycin -PT/OT when extubated. -Continue with ICU, Medicine, oncology, pulm and cardio management -Dispo: pending
[2020-09-25 18:15] LABS: ABG Base Excess 0.7 mmol/L; ABG HCO3 26 mmol/L (21-25); ABG PCO2 46 mmHg (35-45); ABG PH 7.36 (7.35-7.45); ABG PO2 236 mmHg (83-108); ABG TCO2 28 mmol/L (19-24)
[2020-09-25 20:16] LABS: Basophils % (A) 0 %; Eosinophils % (A) 0 %; HCT 34.4 % (39.0-53.0); Lymphocytes # (A) 0.2 k/uL (1.0-4.8); Lymphocytes % (A) 2 %; MCH 32.3 pg (25.0-35.0); MCV 92.3 fL (80.0-100.0); Mean Platelet Volume 7.8; Monocytes # (A) 0.5 k/uL (0-1.0); Monocytes % (A) 4 %; Neutrophils % (A) 93 %; Platelet Count 111 k/uL (150-450); RBC 3.73 m/uL (4.30-5.90); RDW 14.9 % (11.5-15.5); WBC 11.8 k/uL (3.8-10.6)
[2020-09-25 20:25] LABS: ALT 26 U/L (4-49); AST 31 U/L (17-59); African American GFR (CKD) >90 (>60 ml/min/1.73 sqM); Albumin 2.6 g/dL (3.5-5.0); Alkaline Phosphatase 84 U/L (38-126); Anion Gap 7 mmol/L; Blood Urea Nitrogen 17 mg/dL (9-20); Calcium 7.9 mg/dL (8.4-10.2); Carbon Dioxide 25 mmol/L (22-30); Chloride 103 mmol/L (98-107); Glucose 151 mg/dL (74-99); Magnesium 1.7 mg/dL (1.6-2.3); Non-African American GFR(CKD) 89 (>60 ml/min/1.73 sqM); Phosphorus 3.5 mg/dL (2.5-4.5); Sodium 135 mmol/L (137-145); Total Bilirubin 1.7 mg/dL (0.2-1.3); Total Protein 4.7 g/dL (6.3-8.2)
[2020-09-25] MEDS ORDERED: Magnesium Replacement Protocol 1 EACH MISC MISCELLANE PRN (20:30)
[2020-09-25] MEDS: MAGNESIUM SULFATE-D5W PMX 1 GM in DEXTROSE/WATER 1 100ML.BAG IVPB SCH ×2 (20:44→21:39)
[2020-09-25] MEDS: CHLORHEXIDINE GLUCONATE 15 ML CUP MUCOUS MEM SCH (20:47)
[2020-09-25] MEDS: VANCOMYCIN 2,000 MG in SODIUM CHLORIDE 0.9% 500 ML 500 ML IVPB SCH (22:42)
[2020-09-26] MEDS ORDERED: HEPARIN SODIUM,PORCINE 5,000 UNIT/ML 1 ML VIAL SQ SCH
[2020-09-26] MEDS ORDERED: ceFAZolin 3 GM in SODIUM CHLORIDE 0.9% 100 ML IVPB SCH ×2
[2020-09-26 00:29] LABS: Glucose,Whole Blood 111 mg/dL (75-99)
[2020-09-26 01:13] LABS: Appearance,Urine Cloudy (Clear); Bacteria,Urine Moderate /hpf; Bilirubin,Urine 1+ (Negative); Blood,Urine Moderate (Negative); Cellular Casts,Urine 2 /lpf (0); Color,Urine Yellow; Glucose,Urine (UA) Negative (Negative); Granular Casts,Urine 2 /lpf (0); Hyaline Casts,Urine 24 /lpf (0-2); Ketones,Urine 2+ (Negative); Leukocyte Esterase,Urine Large (Negative); Mucus,Urine Moderate /hpf; Nitrite,Urine Negative (Negative); PH, Urine 5.5 (5.0-8.0); Protein,Urine 1+ (Negative); RBC,Urine 170 /hpf (0-5); Specific Gravity,Urine 1.025 (1.001-1.035); Squamous Epithelial Cell,Urine <1 /hpf (0-4); WBC,Urine 120 /hpf (0-5)
[2020-09-26 03:50] LABS: Basophils % (A) 0 %; Eosinophils # (A) 0.2 k/uL (0-0.7); Eosinophils % (A) 2 %; HCT 33.3 % (39.0-53.0); HGB 11.2 gm/dL (13.0-17.5); Lymphocytes # (A) 0.3 k/uL (1.0-4.8); Lymphocytes % (A) 3 %; MCH 30.7 pg (25.0-35.0); MCHC 33.5 g/dL (31.0-37.0); MCV 91.4 fL (80.0-100.0); Mean Platelet Volume 8.6; Monocytes # (A) 0.5 k/uL (0-1.0); Monocytes % (A) 5 %; Neutrophils # (A) 8.7 k/uL (1.3-7.7); Neutrophils % (A) 88 %; Platelet Count 121 k/uL (150-450); RBC 3.64 m/uL (4.30-5.90); RDW 15.2 % (11.5-15.5); WBC 9.9 k/uL (3.8-10.6)
[2020-09-26 04:00] LABS: African American GFR (CKD) >90 (>60 ml/min/1.73 sqM); Anion Gap 5 mmol/L; Blood Urea Nitrogen 17 mg/dL (9-20); Calcium 7.7 mg/dL (8.4-10.2); Carbon Dioxide 27 mmol/L (22-30); Chloride 104 mmol/L (98-107); Glucose 131 mg/dL (74-99); Magnesium 2.3 mg/dL (1.6-2.3); Non-African American GFR(CKD) >90 (>60 ml/min/1.73 sqM); Potassium 4.1 mmol/L (3.5-5.1); Sodium 136 mmol/L (137-145)
[2020-09-26 04:02] LABS: INR 1.1 (<1.2); Partial Thromboplastin Time 25.2 sec (22.0-30.0); Prothrombin Time 11.1 sec (9.0-12.0)
[2020-09-26 04:07] LABS: ABG Base Excess 3.3 mmol/L; ABG HCO3 27 mmol/L (21-25); ABG Oxygen Saturation 97.8 % (94-97); ABG PCO2 39 mmHg (35-45); ABG PH 7.45 (7.35-7.45); ABG PO2 87 mmHg (83-108); ABG TCO2 29 mmol/L (19-24); Allen Test Performed? Yes
[2020-09-26] MEDS: VANCOMYCIN 2,000 MG in SODIUM CHLORIDE 0.9% 500 ML 500 ML IVPB SCH ×3 (05:40→20:58)
[2020-09-26 06:31] LABS: Glucose,Whole Blood 102 mg/dL (75-99)
--- NOTE | 2020-09-26 06:46 | P.PN ---
Subjective Progress Note Date: 09/26/20 80-year-old male patient with known history of metastatic lung cancer who has been suffering from back pain due to a T9 and T10 acute splits-type fracture was receiving conservative management with physical therapy and bracing and narcotics. Patient continued to have ongoing pain and for that reason the patient was taken to the operating room where the patient underwent T6 through L1 posterior decompression and fusion. Postop, the patient was transferred to the intensive care unit. The patient for nausea and intubated sedated with propofol and the patient is currently on assist control mode. She is on a rate of 18 Tidal volume of 550, FiO2 of 50% with a PEEP of 5 and a blood gas showed a pH of 7.36 and a pCO2 of 46 and pO2 of 236. Accordingly, the FiO2 has been weaned off. The patient was given vancomycin perioperatively for antibiotic prophylaxis. Currently is on IV Protonix. He is receiving Dilaudid 1 mg every 3 hours for pain control in addition to fentanyl 50 g IV every 3 hours and the patient is also on Flexeril 10 mg by mouth twice a day. Hemodynamically stable on no pressors. Currently on IV fluids with normal saline running at the rate of 150 mL an hour. Urine output is adequate for now.Note that this patient was seen preoperatively prior to his back surgery. The patient is known to have COPD along with previous history of atrial fibrillation and pacemaker insertion. He has CHF and hypertension. Also, the patient carries the diagnoses of metastatic lung cancer diagnosed back in September 2019. The patient presented with left upper lobe mass back then. The patient is obstructive sleep apnea as well as his BiPAP on outpatient basis. Noted the patient has already received A pleasant 2 T10 and following that the patient has received radiation therapy to the spine. We have given this patient pulmonary clearance. His FEV1 has been ordered of 1.97 L preoperatively. On today's evaluation, chest x-ray shows a left upper lobe mass and several scattered bilateral pulmonary lesions consistent with his metastatic lung cancer. ET tube is sitting high in the trachea. There is a pacemaker in the left anterior chest area. The patient remains on the same vent setting and the blood gases from today shows a pH of 7.43 with a pCO2 of 39 and pO2 of 87. No significant orotracheal secretions. He is still on propofol which is being weaned off in preparation for checking his weaning parameters and possible extubation. He has remained hemodynamically stable overnight. As the patient is being weaned off the sedation, his blood pressure is going up and is also being monitored. In terms of his blood work this morning, the patient has a white cell count of 9.9 with a hemoglobin of 11.2 and the platelet count of 121, his BUN is 17 with a creatinine of 0.7 and sodium level is 136. UA was abnormal with clumps of white cells and the patient remains on vancomycin. A dose of Rocephin will be given pending urine cultures. Objective - Vital Signs Vital signs: Vital Signs Temp 99.2 F 09/26/20 04:00 Pulse 86 09/26/20 06:00 Resp 20 09/26/20 06:00 BP 143/84 09/26/20 06:00 Pulse Ox 98 09/26/20 06:00 Intake & Output 09/25/20 09/25/20 09/26/20 06:59 18:59 06:59 Intake Total 240 3103 1696.125 Output Total 300 350 985 Balance -60 2753 711.125 Intake: IV 3103 1280 0.9 600 Lactated Ringers 1,000 ml 180 @ 20 mls/hr IV .Q24H FITO Rx#:[id number] Vancomycin 2,000 mg In 500 Sodium Chloride 0.9% 500 ml 500 ml @ 167 mls/hr IVPB Q8H FITO Rx#: [id number] Intake, IV Titration 416.125 Amount Magnesium Sulfate-D5w Pmx 200 1 gm In Dextrose/Water 1 100ml.bag @ 100 mls/hr IVPB Q1H FITO Rx#: [id number] propofoL 1,000 mg In 216.125 Empty Bag 1 bag @ Titrate IV .Q0M FITO Rx#: [id number] Oral 240 Output: Urine 300 150 985 Estimated Blood Loss 200 Other: Voiding Method Urinal Indwelling Catheter ABP, PAP, CO, CI - Last Documented Arterial Blood Pressure 170/68 - Exam GENERAL EXAM: Alert, pleasant 80-year-old gentleman, extubated on a mechanical ventilator and the patient is currently sedated with propofol. Orogastric and orotracheal tube are both in place. The patient had a triple lumen catheter in his right IJ. HEAD: Normocephalic. EYES: Normal reaction of pupils, equal size. NOSE: Clear with pink turbinates. THROAT: No erythema or exudates. NECK: No masses, no JVD. CHEST: No chest wall deformity. LUNGS: Equal air entry with no crackles, wheeze, rhonchi or dullness. CVS: S1 and S2 normal with no audible murmur, regular rhythm. ABDOMEN: No hepatosplenomegaly, normal bowel sounds, no guarding or rigidity. SPINE: Recent surgery incisions clean dry well approximated SKIN: No rashes, surgical wound site over the back areas dry clean and intact. CENTRAL NERVOUS SYSTEM: the patient is currently sedated. EXTREMITIES: Some edema of the right knee. There is no peripheral edema. No clubbing, no cyanosis. Peripheral pulses are intact. - Labs CBC & Chem 7: 09/26/20 03:40 09/26/20 03:40 Labs: Abnormal Lab Results - Last 24 Hours (Table) 09/25/20 09/25/20 09/25/20 Range/Units 18:11 20:11 20:11 WBC 11.8 H (3.8-10.6) k/uL RBC 3.73 L (4.30-5.90) m/uL Hgb 12.0 L D (13.0-17.5) gm/dL Hct 34.4 L (39.0-53.0) % Plt Count 111 L (150-450) k/uL Neutrophils # 11.0 H (1.3-7.7) k/uL Lymphocytes # 0.2 L (1.0-4.8) k/uL ABG pCO2 46 H (35-45) mmHg ABG pO2 236 H (83-108) mmHg ABG HCO3 26 H (21-25) mmol/L ABG Total CO2 28 H (19-24) mmol/L ABG O2 Saturation 100.0 H (94-97) % Sodium 135 L (137-145) mmol/L Creatinine (0.66-1.25) mg/dL Glucose 151 H (74-99) mg/dL POC Glucose (mg/dL) (75-99) mg/dL Calcium 7.9 L (8.4-10.2) mg/dL Total Bilirubin 1.7 H (0.2-1.3) mg/dL Total Protein 4.7 L (6.3-8.2) g/dL Albumin 2.6 L (3.5-5.0) g/dL Urine Protein (Negative) Urine Ketones (Negative) Urine Blood (Negative) Urine Bilirubin (Negative) Ur Leukocyte Esterase (Negative) Urine RBC (0-5) /hpf Urine WBC (0-5) /hpf Urine WBC Clumps (None) /hpf Urine Bacteria (None) /hpf Hyaline Casts (0-2) /lpf Urine Mucus (None) /hpf 09/26/20 09/26/20 09/26/20 Range/Units 00:27 00:35 03:40 WBC (3.8-10.6) k/uL RBC 3.64 L (4.30-5.90) m/uL Hgb 11.2 L (13.0-17.5) gm/dL Hct 33.3 L (39.0-53.0) % Plt Count 121 L (150-450) k/uL Neutrophils # 8.7 H (1.3-7.7) k/uL Lymphocytes # 0.3 L (1.0-4.8) k/uL ABG pCO2 (35-45) mmHg ABG pO2 (83-108) mmHg ABG HCO3 (21-25) mmol/L ABG Total CO2 (19-24) mmol/L ABG O2 Saturation (94-97) % Sodium (137-145) mmol/L Creatinine (0.66-1.25) mg/dL Glucose (74-99) mg/dL POC Glucose (mg/dL) 111 H (75-99) mg/dL Calcium (8.4-10.2) mg/dL Total Bilirubin (0.2-1.3) mg/dL Total Protein (6.3-8.2) g/dL Albumin (3.5-5.0) g/dL Urine Protein 1+ H (Negative) Urine Ketones 2+ H (Negative) Urine Blood Moderate H (Negative) Urine Bilirubin 1+ H (Negative) Ur Leukocyte Esterase Large H (Negative) Urine RBC 170 H (0-5) /hpf Urine WBC 120 H (0-5) /hpf Urine WBC Clumps Few H (None) /hpf Urine Bacteria Moderate H (None) /hpf Hyaline Casts 24 H (0-2) /lpf Urine Mucus Moderate H (None) /hpf 09/26/20 09/26/20 09/26/20 Range/Units 03:40 04:00 06:30 WBC (3.8-10.6) k/uL RBC (4.30-5.90) m/uL Hgb (13.0-17.5) gm/dL Hct (39.0-53.0) % Plt Count (150-450) k/uL Neutrophils # (1.3-7.7) k/uL Lymphocytes # (1.0-4.8) k/uL ABG pCO2 (35-45) mmHg ABG pO2 (83-108) mmHg ABG HCO3 27 H (21-25) mmol/L ABG Total CO2 29 H (19-24) mmol/L ABG O2 Saturation 97.8 H (94-97) % Sodium 136 L (137-145) mmol/L Creatinine 0.57 L (0.66-1.25) mg/dL Glucose 131 H (74-99) mg/dL POC Glucose (mg/dL) 102 H (75-99) mg/dL Calcium 7.7 L (8.4-10.2) mg/dL Total Bilirubin (0.2-1.3) mg/dL Total Protein (6.3-8.2) g/dL Albumin (3.5-5.0) g/dL Urine Protein (Negative) Urine Ketones (Negative) Urine Blood (Negative) Urine Bilirubin (Negative) Ur Leukocyte Esterase (Negative) Urine RBC (0-5) /hpf Urine WBC (0-5) /hpf Urine WBC Clumps (None) /hpf Urine Bacteria (None) /hpf Hyaline Casts (0-2) /lpf Urine Mucus (None) /hpf Assessment and Plan Plan: 1 acute back pain secondary to [place] implant fracture T9 vertebral body, chance fracture T10 vertebral body, the patient is currently postop and the patient has undergone T6 through L1 spine decompression/fusion. The patient is postop day #1. The patient is intubated on mechanical ventilator post surgery. 2 acute hypoxic respiratory failure, following an extensive spine surgerythe patient failed extubation and recovery and the patient has to get intubated and brought back to the intensive care units.causes of the respiratory failure is multifactorial. Could be medication in the setting of underlying lung cancer and CVA disorder in the form of ABRAHAM. Currently intubated on a mechanical ventilator. Chest x-ray was noted. Ventilator setting was noted. Blood gases was noted. 3 Metastatic 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 with subsequent radiation 4 Squamous cell carcinoma the lung, stage IV 5 Recent kyphoplasty for pathologic fracture of vertebral body T10 6 History of multiple pulmonary nodules present for greater than 5 years suspected old granulomatous disease versus sarcoid, no changes 7 History of chronic atrial fibrillation, status post permanent pacemaker implantation 8 Obesity hypoventilation syndrome/obstructive sleep apnea, on BiPAP in the outpatient setting 9 Hypertension 10 Morbid obesity 11 History of coronary artery disease with previous stent placement 12 Former smoker plan The Sedation and Check Weaning Parameters and Insisted This for Weaning and Possible Extubation Today, possible exhibition today, chest x-ray was noted and the patient has metastatic lung cancer and blood gases were also noted. FiO2 has been weaned down to 50%. Probable was being weaned off to check weaning p arameters and possible extubation later on today. IV fluids with lactated Ringer at the rate of 75 mL an hour Med management will be continued in the intensive care unit GI prophylaxis with IV Protonix Resumed on Lovenox for DVT prophylaxis Postoperative antibiotics with vancomycin, I'm going to add a dose of Rocephin 1 g and check urine cultures pain control with a combination of Dilaudid and fentanyl CAT scan of the thoracolumbar spine once extubated Continue IV fluids Monitor hemodynamics We'll continue to follow Is a critically care evaluation was done >30 min him a further recommendations to follow based on his overall progress. Time with Patient: Greater than 30
[2020-09-26] MEDS: HYDROmorphone 0.5 MG/0.5 ML SYRINGE IVP PRN ×2 (08:07→12:22)
--- NOTE | 2020-09-26 08:07 | P.PN ---
Subjective Progress Note Date: 09/26/20 Pt s/e this AM. He has just been extubated, but is looking very well. Vitals are stable and he is awake and alert. He answers questions appropriately and shakes head yes and no. He is in some pain currently, and is due medications. Denies any new numbness or tingling. Denies any f/c/sob/cp at this time. Denies any perineal numbness/tingling states he can move all 4 ext normally. Objective - Vital Signs Vital signs: Vital Signs Temp 99.2 F 09/26/20 04:00 Pulse 81 09/26/20 07:00 Resp 23 09/26/20 07:00 BP 151/88 09/26/20 07:00 Pulse Ox 98 09/26/20 07:00 Intake & Output 09/25/20 09/26/20 09/26/20 18:59 06:59 18:59 Intake Total 3103 1716.125 75 Output Total 350 1035 Balance 2753 681.125 75 Intake: IV 3103 1300 75 0.9 600 Lactated Ringers 1,000 ml 200 75 @ 20 mls/hr IV .Q24H FITO Rx#:[id number] Vancomycin 2,000 mg In 500 Sodium Chloride 0.9% 500 ml 500 ml @ 167 mls/hr IVPB Q8H FITO Rx#: [id number] Intake, IV Titration 416.125 Amount Magnesium Sulfate-D5w Pmx 200 1 gm In Dextrose/Water 1 100ml.bag @ 100 mls/hr IVPB Q1H FITO Rx#: [id number] propofoL 1,000 mg In 216.125 Empty Bag 1 bag @ Titrate IV .Q0M FITO Rx#: [id number] Output: Urine 150 1035 Estimated Blood Loss 200 Other: Voiding Method Indwelling Catheter ABP, PAP, CO, CI - Last Documented Arterial Blood Pressure 184/77 - Exam PHYSICAL EXAMINATION: Vitals: Stable at this time General: Awake, alert, appropriate for age, in no acute distress. HEENT: No unusual neck masses around region of lateral neck triangle, thyroid, supraclavicular groove. Heart: Regular rate and rhythm, normal S1, S2 and no murmur/gallop. Lungs: Clear to auscultation bilaterally with no use of accessory muscles. Extremities: Skin warm and dry without no acute lesions, coloration, temperature, skin intact, no tenderness or erythema. Integument: Hairy patches: Absent Dorsal skin dimples: Absent Cafe au lait spots: Absent Surgical incisions: Incision and dressing are CDI at this time. Mild TTP around incision. Drain is in place and has good serosanguinous output. Palpation: Please see Pain drawing on Intake sheet for further detail. (Tenderness = T, Nontender = NT, Swelling = S, Ecchymosis = E) Findings on Midline and paraspinal palpation and percussion: Cervical: NT Thoracic: Tenderness to palpation or ballottement midline and paraspinal Lumbar: Tennis to palpation in the upper portion however not in the lower portion at this time Sacral: NT Special findings: None Vital extremity exam is stable right knee exam is stable VASCULAR STATUS : Wrist Pulses: 2/4 bilateral radial and ulnar Pedal Pulses: 2/4 bilateral DP and PT Color: Normal with some redness Edema: BL LE, 1+ pitting NEUROLOGIC EXAMINATION: Mental Status: Awake and alert, fully oriented, with normal attention, concentration and memory, and fluent, appropriate speech. Cranial Nerves: I: Olfactory not tested. II: Visual acuity normal, no visual field deficit noted with confrontation. III,IV: Normal pupillary reflexes & intact extraocular movements without nystagmus. V,: Intact symmetrical facial sensation. VII: Intact symmetrical facial motor movement VIII: Hearing intact. IX,X: Intact gag, swallow, & normal voice. XI: Sternocleidomastoid, trapezius function intact. XII: Tongue midline with normal movements. Special Tests: L'hermitte's Sign: Absent Spurling'Sign: Absent Bilateral Cubital percussion test: Absent Bilateral Jossue-Tinel sign - Carpal region: Absent Bilateral Straight Leg Raising: Absent Bilateral Motor Exam (0-5/5, N/T) STRENGTH UPPER EXTREMITY Shoulder Abd (Not part of [place] Motor score): RIGHT 5 LEFT 5 Elbow Flexors: RIGHT 5 LEFT 5 Elbow Extensor: RIGHT 5 LEFT 5 Wrrist Dorsiflexors: RIGHT 5 LEFT 5 Finger Abductor: RIGHT 5 LEFT 5 Finger Buffs Assembler: RIGHT 5 LEFT 5 LOWER EXTREMITY Hip Flexor (Not part of [place] Motor Score): RIGHT 4+ LEFT 5 Knee Flexor: RIGHT 4+ LEFT 5 Knee Extensor: RIGHT 4+ LEFT 5 Ankle Dorsiflexion: RIGHT 5 LEFT 5 Ankle Plantarflexion: RIGHT 5 LEFT 5 EHL: RIGHT 4+ LEFT 5 FHL: RIGHT 5 LEFT 5 REFLEXES Biecp: RIGHT 2 LEFT 2 Tricep: RIGHT 2 LEFT 2 Brachioradialis: RIGHT 2 LEFT 2 Patellar: RIGHT 2 LEFT 2 Achilles: RIGHT 2 LEFT 2 Pathological Reflexes Santamaria's: RIGHT Absent LEFT Absent Babinski: RIGHT Absent LEFT Absent Clonus: RIGHT None LEFT None SENSORY Joint Position: Intact bilaterally Vibration Intact bilaterally Pain and LT sense Intact C5-T1 and L2-S1 Dermatomal deficit None Gait and Functional Evaluation: Ambulatory aids: Walker and TLSO Hand and finger dexterity intact bilaterally. Disdiadochokinesis examination negative bilaterally. - Labs CBC & Chem 7: 09/26/20 03:40 09/26/20 03:40 Labs: Abnormal Lab Results - Last 24 Hours (Table) 09/25/20 09/25/20 09/25/20 Range/Units 18:11 20:11 20:11 WBC 11.8 H (3.8-10.6) k/uL RBC 3.73 L (4.30-5.90) m/uL Hgb 12.0 L D (13.0-17.5) gm/dL Hct 34.4 L (39.0-53.0) % Plt Count 111 L (150-450) k/uL Neutrophils # 11.0 H (1.3-7.7) k/uL Lymphocytes # 0.2 L (1.0-4.8) k/uL ABG pCO2 46 H (35-45) mmHg ABG pO2 236 H (83-108) mmHg ABG HCO3 26 H (21-25) mmol/L ABG Total CO2 28 H (19-24) mmol/L ABG O2 Saturation 100.0 H (94-97) % Sodium 135 L (137-145) mmol/L Creatinine (0.66-1.25) mg/dL Glucose 151 H (74-99) mg/dL POC Glucose (mg/dL) (75-99) mg/dL Calcium 7.9 L (8.4-10.2) mg/dL Total Bilirubin 1.7 H (0.2-1.3) mg/dL Total Protein 4.7 L (6.3-8.2) g/dL Albumin 2.6 L (3.5-5.0) g/dL Urine Protein (Negative) Urine Ketones (Negative) Urine Blood (Negative) Urine Bilirubin (Negative) Ur Leukocyte Esterase (Negative) Urine RBC (0-5) /hpf Urine WBC (0-5) /hpf Urine WBC Clumps (None) /hpf Urine Bacteria (None) /hpf Hyaline Casts (0-2) /lpf Urine Mucus (None) /hpf 09/26/20 09/26/20 09/26/20 Range/Units 00:27 00:35 03:40 WBC (3.8-10.6) k/uL RBC 3.64 L (4.30-5.90) m/uL Hgb 11.2 L (13.0-17.5) gm/dL Hct 33.3 L (39.0-53.0) % Plt Count 121 L (150-450) k/uL Neutrophils # 8.7 H (1.3-7.7) k/uL Lymphocytes # 0.3 L (1.0-4.8) k/uL ABG pCO2 (35-45) mmHg ABG pO2 (83-108) mmHg ABG HCO3 (21-25) mmol/L ABG Total CO2 (19-24) mmol/L ABG O2 Saturation (94-97) % Sodium (137-145) mmol/L Creatinine (0.66-1.25) mg/dL Glucose (74-99) mg/dL POC Glucose (mg/dL) 111 H (75-99) mg/dL Calcium (8.4-10.2) mg/dL Total Bilirubin (0.2-1.3) mg/dL Total Protein (6.3-8.2) g/dL Albumin (3.5-5.0) g/dL Urine Protein 1+ H (Negative) Urine Ketones 2+ H (Negative) Urine Blood Moderate H (Negative) Urine Bilirubin 1+ H (Negative) Ur Leukocyte Esterase Large H (Negative) Urine RBC 170 H (0-5) /hpf Urine WBC 120 H (0-5) /hpf Urine WBC Clumps Few H (None) /hpf Urine Bacteria Moderate H (None) /hpf Hyaline Casts 24 H (0-2) /lpf Urine Mucus Moderate H (None) /hpf 09/26/20 09/26/20 09/26/20 Range/Units 03:40 04:00 06:30 WBC (3.8-10.6) k/uL RBC (4.30-5.90) m/uL Hgb (13.0-17.5) gm/dL Hct (39.0-53.0) % Plt Count (150-450) k/uL Neutrophils # (1.3-7.7) k/uL Lymphocytes # (1.0-4.8) k/uL ABG pCO2 (35-45) mmHg ABG pO2 (83-108) mmHg ABG HCO3 27 H (21-25) mmol/L ABG Total CO2 29 H (19-24) mmol/L ABG O2 Saturation 97.8 H (94-97) % Sodium 136 L (137-145) mmol/L Creatinine 0.57 L (0.66-1.25) mg/dL Glucose 131 H (74-99) mg/dL POC Glucose (mg/dL) 102 H (75-99) mg/dL Calcium 7.7 L (8.4-10.2) mg/dL Total Bilirubin (0.2-1.3) mg/dL Total Protein (6.3-8.2) g/dL Albumin (3.5-5.0) g/dL Urine Protein (Negative) Urine Ketones (Negative) Urine Blood (Negative) Urine Bilirubin (Negative) Ur Leukocyte Esterase (Negative) Urine RBC (0-5) /hpf Urine WBC (0-5) /hpf Urine WBC Clumps (None) /hpf Urine Bacteria (None) /hpf Hyaline Casts (0-2) /lpf Urine Mucus (None) /hpf Assessment and Plan Assessment: 1. T9 and T10 acute split-type fractures, chance-type fractures no posterior column involvement evident, MRI not possible secondary to stents and pacemaker. Continued pain despite conservative management physical therapy and bracing medications. Increasing need for narcotic medications 2. Status post T10 kyphoplasty 3. Status post fall from standing 4. Lung carcinoma with metastasis status post radiation 5. Complex medical patient with significant cardiovascular respiratory history, morbid obesity Plan: -Medicine consult cardiology consult oncology and pulmonology clearances appreciated -ICU management appreciated -Restart Lovenox today -Advance diet as tolerated -monitor neuro status, and bowel status -Pain control -GI prophylaxis -Vanco post op -ICU to add rocephin for poss UTI -CT scan today of TL spine for hardware eval -Trend labs TF PRN -Transfer to step down or surgical floor when appropriate per ICU team --PT/OT up with TLSO and walker if needed --Dispo: pending. Will likely need rehab.
--- NOTE | 2020-09-26 08:13 | XR ---
EXAMINATION TYPE: XR chest 1V portable DATE OF EXAM: 09/26/2020 COMPARISON: 09/18/2020 INDICATION: Tube placement TECHNIQUE: Single frontal view of the chest is obtained. FINDINGS: The heart size is mildly prominent. The pulmonary vasculature is normal. Scattered infiltrates are in the upper lung devries bilaterally. There is a right central venous catheter with the tip in the right atrium. No pneumothorax is evident . Endotracheal tube tip is above the larissa. Pacemaker overlies left chest. IMPRESSION: 1. Lateral apical lung infiltrates. 2. Lines and catheters discussed above.
[2020-09-26] MEDS: ENOXAPARIN 40 MG/0.4 ML SYRINGE SQ SCH (10:33)
[2020-09-26] MEDS: carvediloL 3.125 MG TAB PO SCH ×2 (10:33→18:33)
[2020-09-26] MEDS: GABAPENTIN 300 MG CAP PO SCH ×3 (10:33→20:58)
[2020-09-26] MEDS: PANTOPRAZOLE 40 MG/10 ML VIAL IV SCH (10:36)
[2020-09-26] MEDS: SENNOSIDES 8.6 MG TAB PO SCH ×2 (10:36→20:58)
[2020-09-26] MEDS: CHLORHEXIDINE GLUCONATE 15 ML CUP MUCOUS MEM SCH ×2 (10:36→19:46)
[2020-09-26] MEDS: HYDROmorphone 1 MG/ML 1 ML SYRINGE IVP PRN ×4 (10:37→21:48)
[2020-09-26] MEDS: LACTATED RINGERS 1,000 ML IV SCH ×2 (10:37→21:00)
[2020-09-26] MEDS: ALPRAZolam 0.25 MG TAB PO PRN (10:49)
[2020-09-26 11:59] LABS: Glucose,Whole Blood 122 mg/dL (75-99)
[2020-09-26] MEDS: amLODIPine 5 MG TAB PO SCH (12:12)
[2020-09-26] MEDS: traMADol 50 MG TAB PO PRN (12:12)
--- NOTE | 2020-09-26 12:18 | P.PN ---
Subjective Progress Note Date: 09/26/20 - Reason for Consult Metastatic lung cancer, preoperative clearance - History of Present Illness 80-year-old pleasant male fairly functional before his severe back pain secondary to metastatic lung cancer. Patient is admitted secondary to fall found to have fracture of the T9 vertebral body. Orthotic surgery evaluation there are planning on stimulation his surgery for this vertebral body. Patient appears to have a pathological fracture patient is also found to have right knee strain without any fracture and knee effusion. Patient had multiple hospital physicians recently for severe back pain for which patient had a biopsy which showed metastatic metastatic non-small cell lung cancer for which patient is presently receiving radiation therapy patient had a recent kyphoplasty of pathological fracture of T10 vertebral body. Patient is a well-known and very pleasant gentleman does have some medical problems including obesity hypoventilation syndrome and sleep apnea. 09/21/2020 Patient is seen and evaluated in follow-up with no acute overnight issues. Does have his back brace on and is currently sitting up in the chair with family at the bedside. Patient is attempting for aggressive physical therapy and getting up and sitting in the chair at least 3 times per day. We are currently following along with orthopedic surgery and possible tentative surgery next Thursday if patient's progression with physical therapy does not help. Patient is attempting to avoid surgery if possible. 09/22/2020 Patient the started having pain again pain management is managing the patient patient was started back on fentanyl patch 09/23/2020 Patient's the pain is better. Patient had bowel movement today. 09/24/2020 Patient is seen and evaluated in follow-up and reports to having some increased back pain. Patient is tentatively scheduled for surgical intervention in the morning. Will hold Lovenox after today and patient will be nothing by mouth at midnight. Repeat labs today within normal limits. Patient denies any chest pain or palpitations. Patient is afebrile. 09/25/2020 Patient was seen and evaluated this morning prior to being taken for surgery this morning with no acute overnight issues. Lovenox was held and patient is nothing by mouth. Will await surgical report and repeat a.m. labs and continue to monitor closely. Patient will be returning to the ICU for close monitoring status post surgery. 09/26/2020 Patient is seen this morning currently remains in the ICU being closely monitored. Patient was extubated successfully and is following commands and alert and oriented. Patient does have pain and will continue with pain management medications. Patient is status post surgical intervention with Dr. Cee. Hemoglobin stable this morning at 11.2, white blood count 9.9, sodium 136, potassium 4.1, and creatinine 0.57. Continue with Accu-Cheks every 6 and diet will be resumed. Lovenox also being restarted. Blood pressure slightly elevated this morning prior to receiving Coreg and will be closely monitored in the ICU. Review of systems: Constitutional: No reports of fatigue, fever, or chills Cardiovascular: No reports of chest pain or palpitations Respiratory: No reports of shortness of breath or cough GI: No reports of nausea, vomiting, or diarrhea : No reports of dysuria or retention Neurovascular: reports generalized weakness and continued back pain All medications have been reviewed Objective - Vital Signs Vital signs: Vital Signs Temp 99.2 F 09/26/20 04:00 Pulse 81 09/26/20 07:00 Resp 23 09/26/20 07:00 BP 151/88 09/26/20 07:00 Pulse Ox 98 09/26/20 07:00 Intake & Output 09/25/20 09/26/20 09/26/20 18:59 06:59 18:59 Intake Total 3103 1716.125 75 Output Total 350 1035 Balance 2753 681.125 75 Intake: IV 3103 1300 75 0.9 600 Lactated Ringers 1,000 ml 200 75 @ 20 mls/hr IV .Q24H FITO Rx#:[id number] Vancomycin 2,000 mg In 500 Sodium Chloride 0.9% 500 ml 500 ml @ 167 mls/hr IVPB Q8H FITO Rx#: [id number] Intake, IV Titration 416.125 Amount Magnesium Sulfate-D5w Pmx 200 1 gm In Dextrose/Water 1 100ml.bag @ 100 mls/hr IVPB Q1H FITO Rx#: [id number] propofoL 1,000 mg In 216.125 Empty Bag 1 bag @ Titrate IV .Q0M FITO Rx#: [id number] Output: Urine 150 1035 Estimated Blood Loss 200 Other: Voiding Method Indwelling Catheter ABP, PAP, CO, CI - Last Documented Arterial Blood Pressure 184/77 - Exam GENERAL: The patient is alert and oriented x3, not in any acute distress. Well developed, well nourished. Recently extubated status post surgical intervention is morning and maintained on 6 L of oxygen via nasal cannula HEENT: Pupils are round and equally reacting to light. EOMI. No scleral icterus. No conjunctival pallor. Normocephalic, atraumatic. No pharyngeal erythema. No thyromegaly. CARDIOVASCULAR: S1 and S2 present. No murmurs, rubs, or gallops. PULMONARY: Chest is clear to auscultation, no wheezing or crackles. ABDOMEN: Soft, nontender, nondistended, normoactive bowel sounds. No palpable organomegaly. MUSCULOSKELETAL: Deferred to orthopedic surgery EXTREMITIES: No cyanosis, clubbing, or pedal edema. NEUROLOGICAL: Gross neurological examination did not reveal any focal deficits. SKIN: No rashes. - Labs CBC & Chem 7: 09/26/20 03:40 09/26/20 03:40 Labs: Abnormal Lab Results - Last 24 Hours (Table) 09/25/20 09/25/20 09/25/20 Range/Units 18:11 20:11 20:11 WBC 11.8 H (3.8-10.6) k/uL RBC 3.73 L (4.30-5.90) m/uL Hgb 12.0 L D (13.0-17.5) gm/dL Hct 34.4 L (39.0-53.0) % Plt Count 111 L (150-450) k/uL Neutrophils # 11.0 H (1.3-7.7) k/uL Lymphocytes # 0.2 L (1.0-4.8) k/uL ABG pCO2 46 H (35-45) mmHg ABG pO2 236 H (83-108) mmHg ABG HCO3 26 H (21-25) mmol/L ABG Total CO2 28 H (19-24) mmol/L ABG O2 Saturation 100.0 H (94-97) % Sodium 135 L (137-145) mmol/L Creatinine (0.66-1.25) mg/dL Glucose 151 H (74-99) mg/dL POC Glucose (mg/dL) (75-99) mg/dL Calcium 7.9 L (8.4-10.2) mg/dL Total Bilirubin 1.7 H (0.2-1.3) mg/dL Total Protein 4.7 L (6.3-8.2) g/dL Albumin 2.6 L (3.5-5.0) g/dL Urine Protein (Negative) Urine Ketones (Negative) Urine Blood (Negative) Urine Bilirubin (Negative) Ur Leukocyte Esterase (Negative) Urine RBC (0-5) /hpf Urine WBC (0-5) /hpf Urine WBC Clumps (None) /hpf Urine Bacteria (None) /hpf Hyaline Casts (0-2) /lpf Urine Mucus (None) /hpf 09/26/20 09/26/20 09/26/20 Range/Units 00:27 00:35 03:40 WBC (3.8-10.6) k/uL RBC 3.64 L (4.30-5.90) m/uL Hgb 11.2 L (13.0-17.5) gm/dL Hct 33.3 L (39.0-53.0) % Plt Count 121 L (150-450) k/uL Neutrophils # 8.7 H (1.3-7.7) k/uL Lymphocytes # 0.3 L (1.0-4.8) k/uL ABG pCO2 (35-45) mmHg ABG pO2 (83-108) mmHg ABG HCO3 (21-25) mmol/L ABG Total CO2 (19-24) mmol/L ABG O2 Saturation (94-97) % Sodium (137-145) mmol/L Creatinine (0.66-1.25) mg/dL Glucose (74-99) mg/dL POC Glucose (mg/dL) 111 H (75-99) mg/dL Calcium (8.4-10.2) mg/dL Total Bilirubin (0.2-1.3) mg/dL Total Protein (6.3-8.2) g/dL Albumin (3.5-5.0) g/dL Urine Protein 1+ H (Negative) Urine Ketones 2+ H (Negative) Urine Blood Moderate H (Negative) Urine Bilirubin 1+ H (Negative) Ur Leukocyte Esterase Large H (Negative) Urine RBC 170 H (0-5) /hpf Urine WBC 120 H (0-5) /hpf Urine WBC Clumps Few H (None) /hpf Urine Bacteria Moderate H (None) /hpf Hyaline Casts 24 H (0-2) /lpf Urine Mucus Moderate H (None) /hpf 0309/26/20 09/26/20 Range/Units 03:40 04:00 06:30 WBC (3.8-10.6) k/uL RBC (4.30-5.90) m/uL Hgb (13.0-17.5) gm/dL Hct (39.0-53.0) % Plt Count (150-450) k/uL Neutrophils # (1.3-7.7) k/uL Lymphocytes # (1.0-4.8) k/uL ABG pCO2 (35-45) mmHg ABG pO2 (83-108) mmHg ABG HCO3 27 H (21-25) mmol/L ABG Total CO2 29 H (19-24) mmol/L ABG O2 Saturation 97.8 H (94-97) % Sodium 136 L (137-145) mmol/L Creatinine 0.57 L (0.66-1.25) mg/dL Glucose 131 H (74-99) mg/dL POC Glucose (mg/dL) 102 H (75-99) mg/dL Calcium 7.7 L (8.4-10.2) mg/dL Total Bilirubin (0.2-1.3) mg/dL Total Protein (6.3-8.2) g/dL Albumin (3.5-5.0) g/dL Urine Protein (Negative) Urine Ketones (Negative) Urine Blood (Negative) Urine Bilirubin (Negative) Ur Leukocyte Esterase (Negative) Urine RBC (0-5) /hpf Urine WBC (0-5) /hpf Urine WBC Clumps (None) /hpf Urine Bacteria (None) /hpf Hyaline Casts (0-2) /lpf Urine Mucus (None) /hpf Assessment and Plan Assessment: -T9 vertebral body fracture fracture: Patient is a low operative risk for this surgery. 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 fib patient is presently rate and rate controlled patient does have a pacemaker. Patient is on Eliquis which is being held for potential surgery in the a.m. -Hypertension -Obesity -Coronary artery disease Plan: Continue with current medications and physical therapy. Patient underwent orthopedic surgical intervention yesterday. Patient is status post extubation from procedure and currently maintained on 6 L nasal cannula. Patient will resume clear liquid and advance as tolerated. Patient also scheduled to undergo CT of the thoracic lumbar spine today. Lovenox being resumed. Will continue to follow along closely with orthopedic surgery. Will repeat a.m. labs. Further recommendations to follow based on the clinical course of the patient. Thank you for this consultation.
--- NOTE | 2020-09-26 12:31 | P.OP ---
Date of Procedure: 09/25/20 Preoperative Diagnosis: 1. T9 AO type B1 fracture 2. T10 AO type B1 fracture s/p kyphoplasty 3. Pathological fracture of the spine 4. Intractable back pain secondary to 1 and 2 5. Inability to ambulate secondary to 1 and 2 6. S/p fall from standing 7. Metestatic Lung CA Postoperative Diagnosis: 1. T9 AO type B1 fracture 2. T10 AO type B1 fracture s/p kyphoplasty 3. Pathological fracture of the spine 4. Intractable back pain secondary to 1 and 2 5. Inability to ambulate secondary to 1 and 2 6. S/p fall from standing 7. Metestatic Lung CA Procedure(s) Performed: 1. Open reduction and internal fixation of T9 fracture 2. Open reduction and internal fixation of T10 fracture 3. Posterior segmental instrumentation T6-L1 4. Posterior lateral instrumented fusion T6-L1 5. Reduction Thoracic fracture 6. T9-T10 decompressive laminectomy 7. Use of intraoperative 3D navigation for screw placement Implants: [place] screws 6.0 mm Ti rods x2 Kyphon cement Bio4 Vesuvius DBM Anesthesia: GETA Surgeon: Carlos Cee Auto Brake Technician #1: Jeovany Pearce (Was present for the entire case and necessary due to the complexity of the case. ) Estimated Blood Loss (ml): 250 IV fluids (ml): 2,500 Urine output (ml): 150 Pathology: none sent Condition: stable Disposition: ICU Indications for Procedure: Patient is 80-year-old male who has a, K medical history. He has had several admissions over the last month. Patient recently underwent a T10 vertebral plasty by Dr. Peters. The patient did well after this. Patient states that he was at home when he slipped on some stairs and fell directly on his back which increased his back pain. He presented to [facility] after this. He was found to have contiguous fractures of T9 and T10 now with fractures around the cemented T10. There is no retropulsion canal compromise neurologic compromise or other issues he simply continue to have back pain now. He states before this she was doing fairly well and was able to get up and move around. He was having some complaints of constipation which are gotten better. He denies any bowel or bladder issues denies any perineal numbness or tingling. He denies any weakness in his legs. He does state when he fell that he had pain in his right knee with the fall and he has a history of a total knee on this side. He denies any other fevers chills or some breath chest pain dizziness headache loss of vision loss of consciousness with the fall blunt head trauma with the fall. Patient does take anticoagulation. He has been diagnosed with small cell lung carcinoma which was also found in his T10 vertebral body during kyphoplasty. He is followed by oncology for this. He is also followed by cardiology for his heart conditions pacemaker which precludes getting MRI at this hospital as well as others. He has had several CTs of his lumbar and thoracic spine. Operative Findings: Unstable 3 column fracture of T9 and T10 with moderate stenosis, deformity and continued pain, failure to thrive despite conservative measures. Description of Procedure: The patient was seen and examined in the preoperative area. All preoperative protocols were followed. Informed consent was obtained risks and benefits of the procedure were discussed at length. Risks including bleeding infection damage to the surrounding tissue and risk of reoperation were discussed with the patient. Risk of anesthesia up to and including was a discussed with the patient. These are outlined in the risk review below. They were willing to accept these risks and all of the risks of surgery. The patient was given a weight-based dose of antibiotics in the form of vancomycin IVPB 1 weight-based dose. The patient was seen and evaluated by the anesthesia team who deemed them fit for surgery. The site was marked, the patient was willing to proceed with the procedure. Spine Surgery Risk Review De Prieto is a 80-year-old male presenting for evaluation of thoracic fractures, pathologic. It was my pleasure to have seen and examined De Prieto . In our visit today we have had a chance to go over subjective complaints, physical examination findings and treatments including the natural course history without intervention and various interventional options. The patients imaging demonstrates T9 and T10 AO B1 type fractures. On physical exam, De Prieto demonstrates severe pain with palpation midline of the thoracic or lumbar region as well as thoracic spine difficulty with ambulation failure to thrive with the physical therapy and despite bracing and medications. Increasing need for narcotic medication and pain control secondary to back pain deficits. I have explained to the patient that as their condition progresses it will cause further neurological deficits and eventual paralysis. Based on the patients imaging, physical exam, and the rapid progression and disabling nature of their symptoms, at this time I recommend surgery in the form or a: Thoracic 6 to lumbar 1 fusion decompression. I discussed the risk and benefits of this procedure at length with De Prieto . The patient and his agreed to considered pursuing the procedure abovementioned. We have attempted all conservative measures including bracing medications physical therapy and rest and none of which have provided any relief for the patient. His very large person is difficult for him to get up and get around secondary to his pain and the instability feeling in his back. I discussed at length with his as w ell as himself different options and at this time I feel that surgery is the best option for him. Prior to surgery, he will be cleared by all services (Cardio, ID, IM etc) for clearance. Questions were invited and answered, and the patient wishes to proceed as outlined below. Currently, I am recommendin. Open reduction and internal fixation of T9 and 10 fractures with Thoracic 6 to lumbar 1 posterior (backside) stabilization with fusion and T9-10 decompression. 2. Follow up with PCP for surgical clearance 3. Review of surgical risks and benefits as well as an educational packet on the proposed surgical procedure. Risks: All surgical procedures come with inherent risks, including those related to positioning, anesthesia, intraoperative findings, and postoperative complications. It is important to understand that surgery does not come with any guarantee of a successful outcome as complications and adverse events are always possible. The patient was given a handout in office today discussing the surgical procedure and risks associated with the intervention, both of which were discussed with the patient. These risks include but are not limited to the following: * Experiencing same, different or even worse symptoms in back, neck, arms, or legs compared to before surgery. * Requiring further surgery or other forms of treatment presently or at some time in the future at same or other levels of the intended spine surgery. * On an extreme but fortunately relatively rare basis severe complication such as blindness, stroke, heart attack, temporary and/or permanent nerve injury, paralysis, coma, or may occur, sometimes without known ex planation. * Surgical complications may include but are not limited to risk of infection, fluid accumulation in the surgical dissection site, including a seroma or hematoma, that requires additional surgery, wound drainage, bleeding, new numbness or weakness, vision changes/loss, spinal fluid leakage, non-healing and/or infected incision, headaches, difficulty or inability to swallow, hoarseness, hemopneumothorax, pneumothorax, impotence, retrograde ejaculation, vaginal dryness; injury to nerves, spinal cord, blood vessels, lymphatics or other vital organs (i.e., bowel injury, injury to the great vessels); heterotopic bone formation; complications related to the hardware such as screws, rods, cages including misplaced hardware, device failure, instrumentation at the wrong spine level, hardware fracture/breakage, or hardware loosening; vertebral failure of the spinal column above or below the newly placed hardware; retained surgical instrumentations or devices and the need for further surgery. * Medical risks of the planned spine surgery include but are not limited to generalized Infections to the whole body or local areas outside of the surgical site (sepsis), heart attack, bleeding, anaphylaxis, meningitis, seizure, epilepsy, hearing loss, burn garibay, laceration of the head or other areas of the body, bruising, hypersensitivity of the skin, bladder over distension; allergic reaction; shoulder injury related to positioning; fat, blood and air clots to other areas of the body like heart, lungs, brain; failure of internal organs such as lungs, kidneys, liver and excessive bleeding. If blood transfusions are necessary, note that transfusions may cause intolerance reactions such as anaphylaxis or other complex reactions. * Despite best efforts, the results of spine surgery might not heal in terms of bone, soft tissues such as skin, fascia, ligaments, and joints. Additionally, in order to achieve best possible results, spine surgery may be carried out beyond the initially planned levels and involve decompression, fusion including insertion of hardware at levels other than the original intended area of surgical interest change some portions of the procedure in order to ensure the best possible outcomes. * With spine surgery and spinal fusion, there are different off label uses of instrumentation (devices, implants and hardware) as well as biological substances (bone morphogenic proteins, demineralized bone matrix) as well as using extra bone from allograft sources (i.e. cadaver bone) or autograft (iliac crest bone, ribs, or the spine itself). The patient has been given information about these practices and their inherent risks and benefits. * [facility] is an educational center that serves as a training facility for neurosurgical and orthopedic spine residents and fellows. Residents are physicians who are completing their surgical intensive training following medical school. They assist in the operating room with direct super vision of the attending surgeons. Powell are surgeons who have completed their training and eligible for board certification. They have opted for an elective year of more specialized training in their field. They assist in the operating room under the supervision of the attending surgeons. Physician assistants are medically trained surgical providers who function in the outpatient, inpatient, and operating room setting under the direct supervision of the attending surgeon. * [facility] has multiple operating rooms with single and overlapping rooms running daily. They currently function under the required guidelines as produced by the [facility] Finance Committee with regards to the overlapping rooms and will continue to comply with changes to this policy as they occur. The requirements include and are complied with as follows: (1) the critical portions of the overlapping rooms will not occur at the same time, (2) the attending physician will be physically present during the critical portions of the procedure and immediately available during the entire case, and (3) a back-up attending is designated should the primary attending not be immediately available. The patient has had a chance to review all the listed information, has been given print outs detailing this information, and has had all his/her questions answered to their satisfaction. It was my pleasure to have seen and examined De Prieto . In our visit today we have had a chance to go over my understanding of our patient's current condition, the natural course history without intervention and various interventional options. Questions were invited and answered, and the patient wishes to proceed as outlined above. I have seen and examined the patient for 25 minutes and we have spent more than 50% of the time in repeat and detailed counseling about the patient's condition, its natural course history with out and as much as can be predicted with surgery and re-review of various surgical treatment options. In conclusion, De Prieto and his requested we proceed with the above suggested surgery and are willing to accept risks and limitations of the suggested surgery as nature of the disease process and our best attempts at treatment for the condition. The patient was transferred to the operative suite by the Department of anesthesia. They were then drifted off to sleep by the department anesthesia GETA. The patient tolerated this well. [Tran catheter was placed by nursing staff, atraumatically]. Once confirmation of lines and ventilation the patient was transferred to a prone Rafa table with a Berhane frame very carefully. All bony prominences including wrists, elbows, axilla, chest, hips, and thighs, and feet were padded very well. Special attention was paid to the genitalia and these were padded accordingly. SCDs were placed on bilateral lower extremities and were connected. Arms were well padded and placed [on arm boards up and out in the 90/90 position]. Once in position, again we confirmed good ventilation capabilities and that lines were running appropriately. The patient's thoracic and lumbar spine was then exposed. 1010s were placed outlining the incision site. Standard alcohol was used to clean the incision site and allowed to dry. C-arm was used to biomark the patient and confirm level for incision which was marked with a skin marker. Operative briefing was performed with all teams and everyone in agreement to proceed. The patient was then prepped and draped in a normal sterile fashion. Timeout was then performed and all parties were in agreement with the procedure to be performed. Skin incision was made over the previously by marked area. Electrocautery dissection was taken down through subcu case tissue to the thoracolumbar and lumbar fascia. This is identified and cleaned entirely with a Bell. Once it was identified midline fasciotomy was made over the spinous process of T6 through L1. This was confirmed on lateral x-ray. Subperiosteal dissection was then taken out to the transverse process of T6 through L1 for exposure and visualization. Retractors were then placed and once good visualization was obtained lateral x-ray confirmed levels. We then placed a spinous processes clamp for a tracker on T11 and the tracker was placed for the 3-D navigation. We then filled the wound with normal sterile saline and cover it with a blue towel and the Z drape was placed over. A 3-D C-arm spent was then obtained with tracker in place to guide our navigation intraoperatively. Once this was obtained and checked for accuracy was then placed the left-sided screws from T6 to T11 using the Unbound 3-D navigation. This was done through a navigated bur followed by a navigated all tapped followed by screw placement. In between each of the steps a feeler was used to confirm within the pedicles. Once we placed the screws on the left side were then went to the right side and repeated this from T6 to T11 on the right-hand side. Once the screws were placed the spinous processes clamp was removed and replaced proximally around T8. A second 3-D C- arm spent was obtained to allow us to place screws from T12 to L1. We then placed screws on the right side followed by the left side of T12 through L1 using the same process as described above. At the T12 screws bilaterally we placed bone graft anchors that were tapped followed by the screw to allow for a soft and better fixation in this area. Once the screws were in place we then obtained another 3-D C-arm spin to confirm placement of the screws and screw placements were confirmed. We then proceeded with cementation of the T6 screws followed by the L1 screws. The jigs for the cement were placed into the screws and towers placed on these. We then under pulsed lateral fluoroscopy injected cement into the right side followed by the left side L1 screws and confirmed good placement of the cement as well as fill of the vertebral body. We then repeated this up at T6 with pulsed lateral fluoroscopy guiding us. There were no vital sign changes during cementation cement was contained within the body with little to no extravasation no cement arteriogram and no evidence of any cement emboli. Once screws were in place and confirmed we then selected a 60 t itanium peter and this was cut and bent to shape. We then placed these rods and setscrews were placed. Rods were then reduced and confirmed to be in good position all set screws were then placed first on the right-hand side than the left hand side. We then final tightened all set screws into position. Final AP and lateral fluoroscopy's were taken and confirmed good placement of screws and rods as well as reduction of the fracture. We then proceeded with decompression of the T9 and T10 area. Alan was used in the interspinous area followed by a high-speed bur to allow for a wide decompression at T9 and T10. Laminectomy was performed in this area as well as medial facetectomy and foraminotomies bilaterally at these levels. A feeler was used to confirm good decompression in this area. The dura was intact. Meticulous hemostasis was then performed with FloSeal and bipolar electrocautery. Once this was obtained we copiously irrigated the wound with 3 L of normal sterile saline. After irrigation Surgicel as well as FloSeal were placed over the dura. We then protected the dura and placed posterior laterally in the gutters after decortication of the transverse processes and the lamina bone graft. This was impacted into the posterior lateral gutters bilaterally after decortication bilaterally. We then placed one cross-link over the T10 region. This is final tightened and the place. Once bone graft was in place we then placed antibiotic beads 10 mL deep to the fascia. We then placed a small round Haris drain deep to the fascia. The fascia was then closed watertight first using 0 PDS followed by a running unidirectional strata fix suture. This created a good watertight closure. We then closed the subcutaneous tissue after placement of vancomycin powder and Cellerate powder with a another running oh strata fix suture. Subcuticular tissue was closed with a running strata fix suture. Skin was closed with a running 2-0 nylon. We then cleaned the wound and dressed it sterilely with Cellerate gel followed by sterile Telfa 4 x 4's and Tegaderms. The drain was sewn into place with 2-0 nylon and drain sponges and Tegaderms were placed here. Drain held good suction. The patient was transferred back to his hospital bed atraumatically. Drain continued to hold suction and were in good position. Patient was then awakened and extubated by the department of anesthesia having tolerated the procedure very well with no complications. He was transferred to the postoperative care unit in stable condition.
--- NOTE | 2020-09-26 13:56 | CT ---
EXAMINATION TYPE: CT thor lumbar spine wo con DATE OF EXAM: 09/26/2020 COMPARISON: 09/24/2020 HISTORY: back pain post operation CT DLP: 3952.8 mGycm CONTRAST: Unenhanced CT of the thoracic and lumbar spine was performed. Bone and soft tissue window settings a re submitted as well as coronal and sagittal reconstructions. Active contrast limits evaluation. There is interval postsurgical change noted with a laminectomy changes and Clemons rods extending from T6 through L1. Alignment is near-anatomic. Postsurgical soft tissue changes are noted with stran dy attenuation seen and small foci of air noted. Vertebroplasty changes are noted of T6, T10 and L1. There is a small amount of extruded methyl methacrylate posterior to the L1 vertebral segment. Fractu re line continues to be visible of the T10 segment. No retropulsion or central stenosis. Ventral spon dylosis. IMPRESSION: 1. Postoperative changes as discussed above.
[2020-09-26] MEDS ORDERED: amLODIPine 5 MG TAB PO STA (15:34)
[2020-09-26 17:46] LABS: Glucose,Whole Blood 137 mg/dL (75-99)
[2020-09-27] LABS: Glucose,Whole Blood 112 mg/dL (75-99)
[2020-09-27] MEDS: HYDROmorphone 1 MG/ML 1 ML SYRINGE IVP PRN ×6 (01:19→21:41)
[2020-09-27 03:55] LABS: Basophils % (A) 0 %; Eosinophils # (A) 0.1 k/uL (0-0.7); Eosinophils % (A) 2 %; HCT 31.4 % (39.0-53.0); HGB 10.3 gm/dL (13.0-17.5); Lymphocytes # (A) 0.3 k/uL (1.0-4.8); Lymphocytes % (A) 4 %; MCH 30.8 pg (25.0-35.0); MCV 93.5 fL (80.0-100.0); Mean Platelet Volume 7.8; Monocytes # (A) 0.5 k/uL (0-1.0); Monocytes % (A) 7 %; Neutrophils # (A) 6.3 k/uL (1.3-7.7); Neutrophils % (A) 86 %; Platelet Count 122 k/uL (150-450); RBC 3.36 m/uL (4.30-5.90); RDW 15.2 % (11.5-15.5); WBC 7.4 k/uL (3.8-10.6)
[2020-09-27 04:07] LABS: African American GFR (CKD) >90 (>60 ml/min/1.73 sqM); Anion Gap 1 mmol/L; Blood Urea Nitrogen 11 mg/dL (9-20); Calcium 7.9 mg/dL (8.4-10.2); Carbon Dioxide 30 mmol/L (22-30); Chloride 103 mmol/L (98-107); Glucose 126 mg/dL (74-99); Non-African American GFR(CKD) >90 (>60 ml/min/1.73 sqM); Potassium 3.9 mmol/L (3.5-5.1); Sodium 134 mmol/L (137-145)
[2020-09-27] MEDS ORDERED: Potassium Replacement Protocol 1 EACH MISC MISCELLANE PRN ×2 (04:14)
[2020-09-27] MEDS ORDERED: POTASSIUM CHLORIDE ER 20 MEQ TAB.ER PO SCH (05:00)
[2020-09-27] MEDS: VANCOMYCIN 2,000 MG in SODIUM CHLORIDE 0.9% 500 ML 500 ML IVPB SCH ×2 (05:29→13:55)
[2020-09-27 05:41] LABS: Glucose,Whole Blood 121 mg/dL (75-99)
--- NOTE | 2020-09-27 07:23 | P.PN ---
Subjective Progress Note Date: 09/27/20 80-year-old male patient with known history of metastatic lung cancer who has been suffering from back pain due to a T9 and T10 acute splits-type fracture was receiving conservative management with physical therapy and bracing and narcotics. Patient continued to have ongoing pain and for that reason the patient was taken to the operating room where the patient underwent T6 through L1 posterior decompression and fusion. Postop, the patient was transferred to the intensive care unit. The patient for nausea and intubated sedated with propofol and the patient is currently on assist control mode. She is on a rate of 18 Tidal volume of 550, FiO2 of 50% with a PEEP of 5 and a blood gas showed a pH of 7.36 and a pCO2 of 46 and pO2 of 236. Accordingly, the FiO2 has been weaned off. The patient was given vancomycin perioperatively for antibiotic prophylaxis. Currently is on IV Protonix. He is receiving Dilaudid 1 mg every 3 hours for pain control in addition to fentanyl 50 g IV every 3 hours and the patient is also on Flexeril 10 mg by mouth twice a day. Hemodynamically stable on no pressors. Currently on IV fluids with normal saline running at the rate of 150 mL an hour. Urine output is adequate for now.Note that this patient was seen preoperatively prior to his back surgery. The patient is known to have COPD along with previous history of atrial fibrillation and pacemaker insertion. He has CHF and hypertension. Also, the patient carries the diagnoses of metastatic lung cancer diagnosed back in September 2019. The patient presented with left upper lobe mass back then. The patient is obstructive sleep apnea as well as his BiPAP on outpatient basis. Noted the patient has already received A pleasant 2 T10 and following that the patient has received radiation therapy to the spine. We have given this patient pulmonary clearance. His FEV1 has been ordered of 1.97 L preoperatively. On today's evaluation, chest x-ray shows a left upper lobe mass and several scattered bilateral pulmonary lesions consistent with his metastatic lung cancer. ET tube is sitting high in the trachea. There is a pacemaker in the left anterior chest area. The patient remains on the same vent setting and the blood gases from today shows a pH of 7.43 with a pCO2 of 39 and pO2 of 87. No significant orotracheal secretions. He is still on propofol which is being weaned off in preparation for checking his weaning parameters and possible extubation. He has remained hemodynamically stable overnight. As the patient is being weaned off the sedation, his blood pressure is going up and is also being monitored. In terms of his blood work this morning, the patient has a white cell count of 9.9 with a hemoglobin of 11.2 and the platelet count of 121, his BUN is 17 with a creatinine of 0.7 and sodium level is 136. UA was abnormal with clumps of white cells and the patient remains on vancomycin. A dose of Rocephin will be given pending urine cultures. On today's evaluation of 09/28/2020, the patient is postop day #2. He was extubated yesterday without any major difficulties. This morning he is on oxygen at 2 L per minute nasal cannula. He is resting comfortably in bed. He i s using incentive spirometer. He is on pain control with a combination of the dilaudid And fentanyl and he is taking Dilaudid 2 mg every 3 hours and has an acceptable pain control. No chest x-ray from today. He is only on oxygen at 2 L without any signs of respiratory distress. The patient is currently on Lovenox for DVT prophylaxis. A CAT scan of the thoracic and the lumbar spine was done yesterday. At around 1 PM and the CAT scan showed postoperative changes with laminectomy and Clemons rods extending from T6 down to L1. No complications post surgery. As mentioned, surgical wound site is clean. There hemoglobin is at 10.3. Renal function stable. UA was abnormal and the patient was given Rocephin and he is also on vancomycin. The cultures are still pending for now. The primary cultures are negative for the time being. The patient is afebrile. The white cell count is at 7.4. No other significant events otherwise for now. His blood pressure is adequately controlled and the patient's cardiac rhythm is controlled atrial fibrillation. Objective - Vital Signs Vital signs: Vital Signs Temp 99.2 F 09/27/20 04:00 Pulse 83 09/27/20 07:00 Resp 19 09/27/20 07:00 BP 130/76 09/27/20 07:00 Pulse Ox 98 09/27/20 07:00 Intake & Output 09/26/20 09/27/20 09/27/20 18:59 06:59 18:59 Intake Total 1400 1445 75 Output Total 665 770 60 Balance 735 675 15 Weight 129.8 kg Intake: IV 1400 1345 75 Lactated Ringers 1,000 ml 900 20 @ 20 mls/hr IV .Q24H [facility] Rx#:[id number] Lactated Ringers 1,000 ml 825 75 @ 75 mls/hr IV .[id number] [facility] Rx#:[id number] Vancomycin 2,000 mg In 500 500 Sodium Chloride 0.9% 500 ml 500 ml @ 167 mls/hr IVPB Q8H [facility] Rx#: [id number] Oral 100 Output: Drainage 40 Right Back 40 Urine 665 730 60 Other: Voiding Method Indwelling Catheter Indwelling Catheter ABP, PAP, CO, CI - Last Documented Arterial Blood Pressure 122/62 - Exam GENERAL EXAM: Alert, pleasant 80-year-old gentleman, extubated to 2 L of oxygen by nasal cannula and the patient is calm and comfortable The patient had a triple lumen catheter in his right IJ. HEAD: Normocephalic. EYES: Normal reaction of pupils, equal size. NOSE: Clear with pink turbinates. THROAT: No erythema or exudates. NECK: No masses, no JVD. CHEST: No chest wall deformity. LUNGS: Equal air entry with no crackles, wheeze, rhonchi or dullness. CVS: Controlled atrial fibrillation with irregular S1 and S2 normal with no audible murmur, regular rhythm. ABDOMEN: No hepatosplenomegaly, normal bowel sounds, no guarding or rigidity. SPINE: Recent surgery incisions clean dry well approximated SKIN: No rashes, surgical wound site over the back areas dry clean and intact. CENTRAL NERVOUS SYSTEM: the patient is currently sedated. EXTREMITIES: Some edema of the right knee. There is no peripheral edema. No clubbing, no cyanosis. Peripheral pulses are intact. - Labs CBC & Chem 7: 09/27/20 03:40 09/27/20 03:40 Labs: Abnormal Lab Results - Last 24 Hours (Table) 09/26/20 09/26/20 09/26/20 Range/Units 11:58 17:45 23:59 RBC (4.30-5.90) m/uL Hgb (13.0-17.5) gm/dL Hct (39.0-53.0) % Plt Count (150-450) k/uL Lymphocytes # (1.0-4.8) k/uL Sodium (137-145) mmol/L Creatinine (0.66-1.25) mg/dL Glucose (74-99) mg/dL POC Glucose (mg/dL) 122 H 137 H 112 H (75-99) mg/dL Calcium (8.4-10.2) mg/dL 09/27/20 09/27/20 09/27/20 Range/Units 03:40 03:40 05:40 RBC 3.36 L (4.30-5.90) m/uL Hgb 10.3 L (13.0-17.5) gm/dL Hct 31.4 L (39.0-53.0) % Plt Count 122 L (150-450) k/uL Lymphocytes # 0.3 L (1.0-4.8) k/uL Sodium 134 L (137-145) mmol/L Creatinine 0.51 L (0.66-1.25) mg/dL Glucose 126 H (74-99) mg/dL POC Glucose (mg/dL) 121 H (75-99) mg/dL Calcium 7.9 L (8.4-10.2) mg/dL Microbiology - Last 24 Hours (Table) 09/25/20 23:06 Gram Stain - Preliminary Sputum Sputum Culture - Preliminary 09/26/20 00:35 Urine Culture - Preliminary Urine,Voided Assessment and Plan Plan: 1 acute back pain secondary to [place] implant fracture T9 vertebral body, chance fracture T10 vertebral body, the patient is currently postop and the patient has undergone T6 through L1 spine decompression/fusion a month and the patient has Clemons rods. The patient is postop day #2 . The patient was extubated without any major difficulties and currently is on 2 L about 2 by nasal cannula. Pain is under adequate control for now. 2 acute hypoxic respiratory failure, following an extensive spine surgerythe patient failed extubation and recovery and the patient has to get intubated and brought back to the intensive care units.causes of the respiratory failure is multifactorial. Could be medication in the setting of underlying lung cancer and CVA disorder in the form of ABRAHAM. The patient is currently extubated. The patient is currently on 2 L of oxygen by nasal cannula. 3 Metastatic 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 with subsequent radiation 4 Squamous cell carcinoma the lung, stage IV 5 Recent kyphoplasty for pathologic fracture of vertebral body T10 6 History of multiple pulmonary nodules present for greater than 5 years suspected old granulomatous disease versus sarcoid, no changes 7 History of chronic atrial fibrillation, status post permanent pacemaker imp lantation 8 Obesity hypoventilation syndrome/obstructive sleep apnea, on BiPAP in the outpatient setting 9 Hypertension 10 Morbid obesity 11 History of coronary artery disease with previous stent placement 12 Former smoker plan Oxygen at 2 L per minute nasal cannula Use incentive spirometer Keep Lovenox for now and confirmed with the surgeon our ability to start back on oral anticoagulation with Eliquis IV fluids with lactated Ringer at the rate of 75 mL an hour The patient is currently on clear liquids. Please slowly advance diet Awaiting the results of urine culture and the blood culture GI prophylaxis with IV Protonix Postoperative antibiotics with vancomycin, I'm going to add a dose of Rocephin 1 g and continue the Rocephin until cultures are confirmed pain control with a combination of Dilaudid and fentanyl CAT scan of the thoracolumbar spine was noted and there are essentially showing postsurgical changes Continue IV fluids Monitor hemodynamics We'll continue to follow He is much more stable compared to yesterday. Will involve PT. We'll continue to follow. Possible transfer out of the ICU today.
--- NOTE | 2020-09-27 08:07 | P.PN ---
Subjective Progress Note Date: 09/27/20 Pt s/e this AM. He is doing well. Vitals are stable and he is awake and alert. He answers questions appropriately and states he is doing well. He is in some pain currently, and is due medications. Denies any new numbness or tingling. Denies any f/c/sob/cp at this time. Denies any perineal numbness/tingling states he can move all 4 ext normally. Objective - Vital Signs Vital signs: Vital Signs Temp 99.2 F 09/27/20 04:00 Pulse 83 09/27/20 07:00 Resp 19 09/27/20 07:00 BP 130/76 09/27/20 07:00 Pulse Ox 98 09/27/20 07:00 Intake & Output 09/26/20 09/27/20 09/27/20 18:59 06:59 18:59 Intake Total 1400 1445 75 Output Total 665 770 60 Balance 735 675 15 Weight 129.8 kg Intake: IV 1400 1345 75 Lactated Ringers 1,000 ml 900 20 @ 20 mls/hr IV .Q24H [facility] Rx#:[id number] Lactated Ringers 1,000 ml 825 75 @ 75 mls/hr IV .[id number] [facility] Rx#:[id number] Vancomycin 2,000 mg In 500 500 Sodium Chloride 0.9% 500 ml 500 ml @ 167 mls/hr IVPB Q8H [facility] Rx#: [id number] Oral 100 Output: Drainage 40 Right Back 40 Urine 665 730 60 Other: Voiding Method Indwelling Catheter Indwelling Catheter ABP, PAP, CO, CI - Last Documented Arterial Blood Pressure 122/62 - Exam exam stable PHYSICAL EXAMINATION: Vitals: Stable at this time General: Awake, alert, appropriate for age, in no acute distress. HEENT: No unusual neck masses around region of lateral neck triangle, thyroid, supraclavicular groove. Heart: Regular rate and rhythm, normal S1, S2 and no murmur/gallop. Lungs: Clear to auscultation bilaterally with no use of accessory muscles. Extremities: Skin warm and dry without no acute lesions, coloration, te mperature, skin intact, no tenderness or erythema. Integument: Hairy patches: Absent Dorsal skin dimples: Absent Cafe au lait spots: Absent Surgical incisions: Incision and dressing are CDI at this time. Mild TTP around incision. Drain is in place and has good serosanguinous output. Palpation: Please see Pain drawing on Intake sheet for further detail. (Tenderness = T, Nontender = NT, Swelling = S, Ecchymosis = E) Findings on Midline and paraspinal palpation and percussion: Cervical: NT Thoracic: Tenderness to palpation or ballottement midline and paraspinal Lumbar: Tennis to palpation in the upper portion however not in the lower portion at this time Sacral: NT Special findings: None Vital extremity exam is stable right knee exam is stable VASCULAR STATUS : Wrist Pulses: 2/4 bilateral radial and ulnar Pedal Pulses: 2/4 bilateral DP and PT Color: Normal with some redness Edema: BL LE, 1+ pitting NEUROLOGIC EXAMINATION: Mental Status: Awake and alert, fully oriented, with normal attention, con centration and memory, and fluent, appropriate speech. Cranial Nerves: I: Olfactory not tested. II: Visual acuity normal, no visual field deficit noted with confrontation. III,IV: Normal pupillary reflexes & intact extraocular movements without nystagmus. V,: Intact symmetrical facial sensation. VII: Intact symmetrical facial motor movement VIII: Hearing intact. IX,X: Intact gag, swallow, & normal voice. XI: Sternocleidomastoid, trapezius function intact. XII: Tongue midline with normal movements. Special Tests: L'hermitte's Sign: Absent Spurling'Sign: Absent Bilateral Cubital percussion test: Absent Bilateral Jossue-Tinel sign - Carpal region: Absent Bilateral Straight Leg Raising: Absent Bilateral Motor Exam (0-5/5, N/T) STRENGTH UPPER EXTREMITY Shoulder Abd (Not part of [place] Motor score): RIGHT 5 LEFT 5 Elbow Flexors: RIGHT 5 LEFT 5 Elbow Extensor: RIGHT 5 LEFT 5 Wrrist Dorsiflexors: RIGHT 5 LEFT 5 Finger Abductor: RIGHT 5 LEFT 5 Machine Heel Builder: RIGHT 5 LEFT 5 LOWER EXTREMITY Hip Flexor (Not part of [place] Motor Score): RIGHT 4+ LEFT 5 Knee Flexor: RIGHT 4+ LEFT 5 Knee Extensor: RIGHT 4+ LEFT 5 Ankle Dorsiflexion: RIGHT 5 LEFT 5 Ankle Plantarflexion: RIGHT 5 LEFT 5 EHL: RIGHT 4+ LEFT 5 FHL: RIGHT 5 LEFT 5 REFLEXES Biecp: RIGHT 2 LEFT 2 Tricep: RIGHT 2 LEFT 2 Brachioradialis: RIGHT 2 LEFT 2 Patellar: RIGHT 2 LEFT 2 Achilles: RIGHT 2 LEFT 2 Pathological Reflexes Santamaria's: RIGHT Absent LEFT Absent Babinski: RIGHT Absent LEFT Absent Clonus: RIGHT None LEFT None SENSORY Joint Position: Intact bilaterally Vibration Intact bilaterally Pain and LT sense Intact C5-T1 and L2-S1 Dermatomal deficit None Gait and Functional Evaluation: Ambulatory aids: Walker and TLSO Hand and finger dexterity intact bilaterally. Disdiadochokinesis examination negative bilaterally. - Constitutional General appearance: Present: morbidly obese - Labs CBC & Chem 7: 09/27/20 03:40 09/27/20 03:40 Labs: Abnormal Lab Results - Last 24 Hours (Table) 09/26/20 09/26/20 09/26/20 Range/Units 11:58 17:45 23:59 RBC (4.30-5.90) m/uL Hgb (13.0-17.5) gm/dL Hct (39.0-53.0) % Plt Count (150-450) k/uL Lymphocytes # (1.0-4.8) k/uL Sodium (137-145) mmol/L Creatinine (0.66-1.25) mg/dL Glucose (74-99) mg/dL POC Glucose (mg/dL) 122 H 137 H 112 H (75-99) mg/dL Calcium (8.4-10.2) mg/dL 09/27/20 09/27/20 09/27/20 Range/Units 03:40 03:40 05:40 RBC 3.36 L (4.30-5.90) m/uL Hgb 10.3 L (13.0-17.5) gm/dL Hct 31.4 L (39.0-53.0) % Plt Count 122 L (150-450) k/uL Lymphocytes # 0.3 L (1.0-4.8) k/uL Sodium 134 L (137-145) mmol/L Creatinine 0.51 L (0.66-1.25) mg/dL Glucose 126 H (74-99) mg/dL POC Glucose (mg/dL) 121 H (75-99) mg/dL Calcium 7.9 L (8.4-10.2) mg/dL Microbiology - Last 24 Hours (Table) 09/25/20 23:06 Gram Stain - Preliminary Sputum Sputum Culture - Preliminary 09/26/20 00:35 Urine Culture - Preliminary Urine,Voided - Imaging and Cardiology CT is reviewed. Hardware in position T6-L1. L L1 screw is slightly medial. Pt is not having any symptoms related to this at this time no radiculopathy or increased leg or hip pain. No bowel or bladder symptoms. All other hardware in safe position. We will monitor his symptoms. Assessment and Plan Assessment: 80 yo male POD#2 T6-L1 fixation for T9-10 unstable B1 fractures. 1. T9 and T10 acute split-type fractures, chance-type fractures no posterior column involvement evident, MRI not possible secondary to stents and pacemaker. Continued pain despite conservative management physical therapy and bracing medications. Increasing need for narcotic medications 2. Status post T10 kyphoplasty 3. Status post fall from standing 4. Lung carcinoma with metastasis status post radiation 5. Complex medical patient with significant cardiovascular respiratory history, morbid obesity Plan: -Medicine consult cardiology consult oncology and pulmonology clearances appreciated -ICU management appreciated -OK to restart Elliquis -Advance diet as tolerated -monitor neuro status, and bowel status -Pain control -GI prophylaxis -Vanco post op -Cont rocephin for poss UTI per ICU -CT scan eval and in results. -Trend labs TF PRN -Transfer to step down or surgical floor when appropriate per ICU team --PT/OT up with TLSO and walker if needed --Dispo: pending. Will likely need rehab.
[2020-09-27] MEDS: carvediloL 3.125 MG TAB PO SCH ×2 (08:37→17:21)
[2020-09-27] MEDS: traMADol 50 MG TAB PO PRN (08:37)
[2020-09-27] MEDS: ALPRAZolam 0.25 MG TAB PO PRN (08:37)
[2020-09-27] MEDS: amLODIPine 5 MG TAB PO SCH (08:37)
[2020-09-27] MEDS: LACTATED RINGERS 1,000 ML IV SCH ×2 (08:38→21:39)
[2020-09-27] MEDS: ENOXAPARIN 40 MG/0.4 ML SYRINGE SQ SCH (08:38)
[2020-09-27] MEDS: SENNOSIDES 8.6 MG TAB PO SCH ×2 (08:38→21:38)
[2020-09-27] MEDS: PANTOPRAZOLE 40 MG/10 ML VIAL IV SCH (08:38)
[2020-09-27] MEDS: GABAPENTIN 300 MG CAP PO SCH ×3 (08:38→21:38)
[2020-09-27] MEDS ORDERED: VANCOMYCIN TROUGH DUE 1 EACH MISC MISCELLANE ONE (13:00)
--- NOTE | 2020-09-27 13:26 | P.PN ---
Subjective Progress Note Date: 09/27/20 - Reason for Consult Metastatic lung cancer, preoperative clearance - History of Present Illness 80-year-old pleasant male fairly functional before his severe back pain secondary to metastatic lung cancer. Patient is admitted secondary to fall found to have fracture of the T9 vertebral body. Orthotic surgery evaluation there are planning on stimulation his surgery for this vertebral body. Patient appears to have a pathological fracture patient is also found to have right knee strain without any fracture and knee effusion. Patient had multiple hospital physicians recently for severe back pain for which patient had a biopsy which showed metastatic metastatic non-small cell lung cancer for which patient is presently receiving radiation therapy patient had a recent kyphoplasty of pathological fracture of T10 vertebral body. Patient is a well-known and very pleasant gentleman does have some medical problems including obesity hypoventilation syndrome and sleep apnea. 09/21/2020 Patient is seen and evaluated in follow-up with no acute overnight issues. Does have his back brace on and is currently sitting up in the chair with family at the bedside. Patient is attempting for aggressive physical therapy and getting up and sitting in the chair at least 3 times per day. We are currently following along with orthopedic surgery and possible tentative surgery next Thursday if patient's progression with physical therapy does not help. Patient is attempting to avoid surgery if possible. 09/22/2020 Patient the started having pain again pain management is managing the patient patient was started back on fentanyl patch 09/23/2020 Patient's the pain is better. Patient had bowel movement today. 09/24/2020 Patient is seen and evaluated in follow-up and reports to having some increased back pain. Patient is tentatively scheduled for surgical intervention in the morning. Will hold Lovenox after today and patient will be nothing by mouth at midnight. Repeat labs today within normal limits. Patient denies any chest pain or palpitations. Patient is afebrile. 09/25/2020 Patient was seen and evaluated this morning prior to being taken for surgery this morning with no acute overnight issues. Lovenox was held and patient is nothing by mouth. Will await surgical report and repeat a.m. labs and continue to monitor closely. Patient will be returning to the ICU for close monitoring status post surgery. 09/26/2020 Patient is seen this morning currently remains in the ICU being closely monitored. Patient was extubated successfully and is following commands and alert and oriented. Patient does have pain and will continue with pain management medications. Patient is status post surgical intervention with Dr. Cee. Hemoglobin stable this morning at 11.2, white blood count 9.9, sodium 136, potassium 4.1, and creatinine 0.57. Continue with Accu-Cheks every 6 and diet will be resumed. Lovenox also being restarted. Blood pressure slightly elevated this morning prior to receiving Coreg and will be closely monitored in the ICU. 09/27/2020 Patient is seen in follow-up continues to be in the ICU awaiting for transition to [facility]. Patient is being closely monitored status post T6 through L1 spinal decompression and fusion surgery with Dr. Cee. Patient was started on IV ceftriaxone for the possibility of UTI although culture report finalized showing normal bay. Patient denies any dysuria or retention and currently has an indwelling Tran catheter status post surgery. Patient maintained on Lovenox although okay to resume Eliquis. Patient currently working with physical therapy and reapplying back brace at the side of the bed. Patient continues to be in pain and is maintained on pain medications per primary service. White blood count is normal at 7.4 hemoglobin is stable at 10.3, current sodium is 134 with a potassium of 3.9 and creatinine is 0.51. Blood sugars have been fairly well controlled not requiring any insulin and patient is maintained on Accu- Cheks. Patient is tolerating diet and being advanced as tolerated. Patient denies any chest pain or shortness of breath. Nursing staff working on weaning FiO2 and patient is currently maintained on 2 L at 96-100%. Review of systems: Constitutional: No reports of fatigue, fever, or chills Cardiovascular: No reports of chest pain or palpitations Respiratory: No reports of shortness of breath or cough GI: No reports of nausea, vomiting, or diarrhea : No reports of dysuria or retention Neurovascular: reports generalized weakness and continued back pain All medications have been reviewed Objective - Vital Signs Vital signs: Vital Signs Temp 98.7 F 09/27/20 08:00 Pulse 87 09/27/20 09:00 Resp 16 09/27/20 09:00 BP 149/87 09/27/20 09:00 Pulse Ox 96 09/27/20 09:00 Intake & Output 09/26/20 09/27/20 09/27/20 18:59 06:59 18:59 Intake Total 1400 1445 75 Output Total 665 770 60 Balance 735 675 15 Weight 129.8 kg Intake: IV 1400 1345 75 Lactated Ringers 1,000 ml 900 20 @ 20 mls/hr IV .Q24H FITO Rx#:[id number] Lactated Ringers 1,000 ml 825 75 @ 75 mls/hr IV .[id number] FITO Rx#:[id number] Vancomycin 2,000 mg In 500 500 Sodium Chloride 0.9% 500 ml 500 ml @ 167 mls/hr IVPB Q8H FITO Rx#: [id number] Oral 100 Output: Drainage 40 Right Back 40 Urine 665 730 60 Other: Voiding Method Indwelling Catheter Indwelling Catheter ABP, PAP, CO, CI - Last Documented Arterial Blood Pressure 162/72 - Exam GENERAL: The patient is alert and oriented x3, not in any acute distress. Well developed, well nourished. Recently extubated status post surgical intervention yesterday and maintained on 2 L of oxygen via nasal cannula HEENT: Pupils are round and equally reacting to light. EOMI. No scleral icterus. No conjunctival pallor. Normocephalic, atraumatic. No pharyngeal erythema. No thyromegaly. CARDIOVASCULAR: S1 and S2 present. No murmurs, rubs, or gallops. PULMONARY: Chest is clear to auscultation, no wheezing or crackles. ABDOMEN: Soft, nontender, nondistended, normoactive bowel sounds. No palpable organomegaly. MUSCULOSKELETAL: Deferred to orthopedic surgery EXTREMITIES: No cyanosis, clubbing, or pedal edema. NEUROLOGICAL: Gross neurological examination did not reveal any focal deficits. SKIN: No rashes. - Labs CBC & Chem 7: 09/27/20 03:40 09/27/20 03:40 Labs: Abnormal Lab Results - Last 24 Hours (Table) 09/26/20 09/26/20 09/26/20 Range/Units 11:58 17:45 23:59 RBC (4.30-5.90) m/uL Hgb (13.0-17.5) gm/dL Hct (39.0-53.0) % Plt Count (150-450) k/uL Lymphocytes # (1.0-4.8) k/uL Sodium (137-145) mmol/L Creatinine (0.66-1.25) mg/dL Glucose (74-99) mg/dL POC Glucose (mg/dL) 122 H 137 H 112 H (75-99) mg/dL Calcium (8.4-10.2) mg/dL 09/27/20 09/27/20 09/27/20 Range/Units 03:40 03:40 05:40 RBC 3.36 L (4.30-5.90) m/uL Hgb 10.3 L (13.0-17.5) gm/dL Hct 31.4 L (39.0-53.0) % Plt Count 122 L (150-450) k/uL Lymphocytes # 0.3 L (1.0-4.8) k/uL Sodium 134 L (137-145) mmol/L Creatinine 0.51 L (0.66-1.25) mg/dL Glucose 126 H (74-99) mg/dL POC Glucose (mg/dL) 121 H (75-99) mg/dL Calcium 7.9 L (8.4-10.2) mg/dL Microbiology - Last 24 Hours (Table) 09/25/20 23:06 Gram Stain - Preliminary Sputum Sputum Culture - Preliminary 09/26/20 00:35 Urine Culture - Preliminary Urine,Voided Assessment and Plan Assessment: -T9 vertebral body fracture: Patient is status post surgical intervention with orthopedic surgery postop day #2 -Right knee strain without any fracture, using immobilizer while out of bed -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 fib patient is presently rate and rate controlled patient does have a pacemaker. Patient is on Eliquis which can be resumed -Hypertension -Obesity -Coronary artery disease Plan: Continue with current medications and physical therapy. Patient recently underwent orthopedic surgical intervention. Patient is status post extubation from procedure and currently maintained on 2 L nasal cannula and weaning as tolerated. Patient tolerating diet and advance as tolerated. Patient CT of the thoracic lumbar spine showing postsurgical changes of laminectomy with Clemons rods extending from the T6 through L1. Ok to resume Eliquis. Will continue to follow along closely with orthopedic surgery. Will repeat a.m. labs. Further recommendations to follow based on the clinical course of the patient. Thank you for this consultation.
[2020-09-27 14:33] LABS: Partial Thromboplastin Time 25.1 sec (22.0-30.0); Prothrombin Time 10.9 sec (9.0-12.0)
[2020-09-27] MEDS: CYCLOBENZAPRINE 10 MG TAB PO PRN (19:33)
[2020-09-27] MEDS: APIXABAN 5 MG TAB PO SCH (21:38)
[2020-09-28] MEDS: VANCOMYCIN 2,000 MG in SODIUM CHLORIDE 0.9% 500 ML 500 ML IVPB SCH ×2 (06:01→17:01)
[2020-09-28] MEDS: HYDROmorphone 1 MG/ML 1 ML SYRINGE IVP PRN ×4 (07:34→18:51)
[2020-09-28] MEDS: PANTOPRAZOLE 40 MG/10 ML VIAL IV SCH (07:38)
[2020-09-28] MEDS: SENNOSIDES 8.6 MG TAB PO SCH ×2 (07:39→20:34)
[2020-09-28] MEDS: GABAPENTIN 300 MG CAP PO SCH ×3 (07:39→20:34)
[2020-09-28] MEDS: APIXABAN 5 MG TAB PO SCH ×2 (07:39→20:34)
[2020-09-28] MEDS: amLODIPine 5 MG TAB PO SCH (07:52)
[2020-09-28] MEDS: carvediloL 3.125 MG TAB PO SCH ×2 (07:52→16:50)
--- NOTE | 2020-09-28 10:21 | P.PN ---
Subjective Progress Note Date: 09/28/20 80-year-old male patient with known history of metastatic lung cancer who has been suffering from back pain due to a T9 and T10 acute splits-type fracture was receiving conservative management with physical therapy and bracing and narcotics. Patient continued to have ongoing pain and for that reason the patient was taken to the operating room where the patient underwent T6 through L1 posterior decompression and fusion. Postop, the patient was transferred to the intensive care unit. The patient for nausea and intubated sedated with propofol and the patient is currently on assist control mode. She is on a rate of 18 Tidal volume of 550, FiO2 of 50% with a PEEP of 5 and a blood gas showed a pH of 7.36 and a pCO2 of 46 and pO2 of 236. Accordingly, the FiO2 has been weaned off. The patient was given vancomycin perioperatively for antibiotic prophylaxis. Currently is on IV Protonix. He is receiving Dilaudid 1 mg every 3 hours for pain control in addition to fentanyl 50 g IV every 3 hours and the patient is also on Flexeril 10 mg by mouth twice a day. Hemodynamically stable on no pressors. Currently on IV fluids with normal saline running at the rate of 150 mL an hour. Urine output is adequate for now.Note that this patient was seen preoperatively prior to his back surgery. The patient is known to have COPD along with previous history of atrial fibrillation and pacemaker insertion. He has CHF and hypertension. Also, the patient carries the diagnoses of metastatic lung cancer diagnosed back in September 2019. The patient presented with left upper lobe mass back then. The patient is obstructive sleep apnea as well as his BiPAP on outpatient basis. Noted the patient has already received A pleasant 2 T10 and following that the patient has received radiation therapy to the spine. We have given this patient pulmonary clearance. His FEV1 has been ordered of 1.97 L preoperatively. On today's evaluation, chest x-ray shows a left upper lobe mass and several scattered bilateral pulmonary lesions consistent with his metastatic lung cancer. ET tube is sitting high in the trachea. There is a pacemaker in the left anterior chest area. The patient remains on the same vent setting and the blood gases from today shows a pH of 7.43 with a pCO2 of 39 and pO2 of 87. No significant orotracheal secretions. He is still on propofol which is being weaned off in preparation for checking his weaning parameters and possible extubation. He has remained hemodynamically stable overnight. As the patient is being weaned off the sedation, his blood pressure is going up and is also being monitored. In terms of his blood work this morning, the patient has a white cell count of 9.9 with a hemoglobin of 11.2 and the platelet count of 121, his BUN is 17 with a creatinine of 0.7 and sodium level is 136. UA was abnormal with clumps of white cells and the patient remains on vancomycin. A dose of Rocephin will be given pending urine cultures. On today's evaluation of 09/27/2020, the patient is postop day #2. He was extubated yesterday without any major difficulties. This morning he is on oxygen at 2 L per minute nasal cannula. He is resting comfortably in bed. He i s using incentive spirometer. He is on pain control with a combination of the dilaudid And fentanyl and he is taking Dilaudid 2 mg every 3 hours and has an acceptable pain control. No chest x-ray from today. He is only on oxygen at 2 L without any signs of respiratory distress. The patient is currently on Lovenox for DVT prophylaxis. A CAT scan of the thoracic and the lumbar spine was done yesterday. At around 1 PM and the CAT scan showed postoperative changes with laminectomy and Clemons rods extending from T6 down to L1. No complications post surgery. As mentioned, surgical wound site is clean. There hemoglobin is at 10.3. Renal function stable. UA was abnormal and the patient was given Rocephin and he is also on vancomycin. The cultures are still pending for now. The primary cultures are negative for the time being. The patient is afebrile. The white cell count is at 7.4. No other significant events otherwise for now. His blood pressure is adequately controlled and the patient's cardiac rhythm is controlled atrial fibrillation. 09/28/2020, the patient is postop day #3. He was weaned off the mechanical ventilator and the patient was extubated without any major difficulties and following that the patient was transferred to a medical floor. Currently is on oxygen at 4 L per minute nasal cannula and he is using incentive spirometer. He is on pain control with a combination of Dilaudid and fentanyl when necessary. He is mainly using Dilaudid. He is post laminectomy and fusion levels T6 through L1.. He is tolerating his diet. He was given laxatives and he has not had a bowel movement yet. This is something that needs to be monitored very closely. Urine cultures are negative and the patient was given a dose of Rocephin and the patient is afebrile for now. No other new complaints for now. She was able to stand up with help of physical therapy. He has a walker at the bedside. He is also using incentive spirometer. Objective - Vital Signs Vital signs: Vital Signs Temp 97.4 F L 09/28/20 05:00 Pulse 99 09/28/20 05:00 Resp 18 09/28/20 05:00 BP 124/84 09/28/20 05:00 Pulse Ox 96 09/28/20 05:00 Intake & Output 09/27/20 09/28/20 09/28/20 18:59 06:59 18:59 Intake Total 909 1000 Output Total 480 580 Balance 429 420 Weight 129.8 kg Intake: IV 909 900 Lactated Ringers 1,000 ml 525 900 @ 75 mls/hr IV .[id number] FITO Rx#:[id number] Vancomycin 2,000 mg In 334 Sodium Chloride 0.9% 500 ml 500 ml @ 167 mls/hr IVPB Q8H FITO Rx#: [id number] cefTRIAXone 1 gm In 50 Sodium Chloride 0.9% 50 ml @ 100 mls/hr IVPB Q24HR FITO Rx#:[id number] Oral 100 Output: Drainage 80 Right Back 80 Urine 480 500 Other: Voiding Method Indwelling Catheter Urinal ABP, PAP, CO, CI - Last Documented Arterial Blood Pressure 162/72 - Exam GENERAL EXAM: Alert, pleasant 80-year-old gentleman, extubated to 2 L of oxygen by nasal cannula and the patient is calm and comfortable The patient had a triple lumen catheter in his right IJ. HEAD: Normocephalic. EYES: Normal reaction of pupils, equal size. NOSE: Clear with pink turbinates. THROAT: No erythema or exudates. NECK: No masses, no JVD. CHEST: No chest wall deformity. LUNGS: Equal air entry with no crackles, wheeze, rhonchi or dullness. CVS: Controlled atrial fibrillation with irregular S1 and S2 normal with no audible murmur, regular rhythm. ABDOMEN: No hepatosplenomegaly, normal bowel sounds, no guarding or rigidity. SPINE: Recent surgery incisions clean dry well approximated SKIN: No rashes, surgical wound site over the back areas dry clean and intact. CENTRAL NERVOUS SYSTEM: the patient is currently sedated. EXTREMITIES: Some edema of the right knee. There is no peripheral edema. No clubbing, no cyanosis. Peripheral pulses are intact. - Labs CBC & Chem 7: 09/27/20 03:40 09/27/20 03:40 Labs: Microbiology - Last 24 Hours (Table) 09/26/20 00:35 Urine Culture - Final Urine,Voided Assessment and Plan Plan: 1 acute back pain secondary to [employer] [place] implant fracture T9 vertebral body, chance fracture T10 vertebral body, the patient is currently postop and the patient has undergone T6 through L1 spine decompression/fusion a month and the patient has Clemons rods. The patient is postop day #3 . The patient was extubated without any major difficulties and currently is on 4 L nasal cannula and he is able to breathe comfortably without any major difficulties. Using incentive spirometer. 2 acute hypoxic respiratory failure, following an extensive spine surgerythe patient failed extubation and recovery and the patient has to get intubated and brought back to the intensive care units.causes of the respiratory failure is multifactorial. Could be medication in the setting of underlying lung cancer and CVA disorder in the form of ABRAHAM. The patient is currently extubated. The patient is currently on liters nasal cannula 3 Metastatic 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 with subsequent radiation 4 Squamous cell carcinoma the lung, stage IV 5 Recent kyphoplasty for pathologic fracture of vertebral body T10 6 History of multiple pulmonary nodules present for greater than 5 years suspect ed old granulomatous disease versus sarcoid, no changes 7 History of chronic atrial fibrillation, status post permanent pacemaker implantation 8 Obesity hypoventilation syndrome/obstructive sleep apnea, on BiPAP in the outpatient setting 9 Hypertension 10 Morbid obesity 11 History of coronary artery disease with previous stent placement 12 Former smoker plan Oxygen at 4 L nasal cannula, wean it down to maintain a saturation above 90% Use incentive spirometer Eliquis has been restarted IV fluids with lactated Ringer at the rate of 75 mL an hour advance diet and continue laxatives to allow a bowel movement. The patient is taking narcotics in his bowel moments these to be monitored very closely Cultures negative and the Rocephin can be discontinued GI prophylaxis with IV Protonix Postoperative antibiotics with vancomycin, CAT scan of the thoracolumbar spine was noted and there are essentially showing postsurgical changes Continue IV fluids Monitor hemodynamics We'll continue to follow He is much more stable compared to yesterday. Will involve PT. PROGNOSIS POOR. WE WILL SIGN OFF THE CASE AND LEAVE THE REST OF THE MANAGEMENT ONCOLOGY, MEDICINE AND SPINE SURGERY.
[2020-09-28 10:55] LABS: Basophils # (A) 0.01 X 10*3/uL (0.00-0.10); Basophils % (A) 0.1 %; Eosinophils # (A) 0.16 X 10*3/uL (0.04-0.35); Eosinophils % (A) 2.3 %; Lymphocytes # (A) 0.27 X 10*3/uL (0.90-5.00); Lymphocytes % (A) 3.8 %; MCH 30.3 pg (27.0-32.0); MCHC 31.3 g/dL (32.0-37.0); Mean Platelet Volume 10.2 fL (9.5-12.2); Monocytes # (A) 0.64 X 10*3/uL (0.20-1.00); Neutrophils # (A) 5.92 X 10*3/uL (1.80-7.70); Neutrophils % (A) 83.4 %; Platelet Count 110 X 10*3/uL (140-440); RDW 14.8 % (11.5-14.5)
--- NOTE | 2020-09-28 12:53 | P.PN ---
Subjective Progress Note Date: 09/28/20 Principal diagnosis: T9 and T10 acute split-type fractures, chance-type fractures no posterior column involvement evident Patient was evaluated at bedside, is present. Patient has moved to the fifth floor medical/surgical floor. He is doing fairly well today bedside. He was actually noted by nursing to be up at the bedside standing with assistance. He has not done any significant walking at this time. Urinary catheters been removed, he is urinating with no difficulty. He has not had a bowel movement yet, stool softeners have been ordered. Patient states he is passing gas. He states the pain is a little better today, he continues to be on IV Dilaudid, a fentanyl patch and muscle relaxants. Currently denies any headaches, lightheadedness, chest pain, shortness of breath, nausea vomiting, fever or chills. He denies any perineal numbness or tingling Objective - Vital Signs Vital signs: Vital Signs Temp 97.4 F L 09/28/20 05:00 Pulse 99 09/28/20 05:00 Resp 18 09/28/20 05:00 BP 124/84 09/28/20 05:00 Pulse Ox 96 09/28/20 05:00 Intake & Output 09/27/20 09/28/20 09/28/20 18:59 06:59 18:59 Intake Total 909 1000 Output Total 480 580 Balance 429 420 Weight 129.8 kg Intake: IV 909 900 Lactated Ringers 1,000 ml 525 900 @ 75 mls/hr IV .[id number] FITO Rx#:[id number] Vancomycin 2,000 mg In 334 Sodium Chloride 0.9% 500 ml 500 ml @ 167 mls/hr IVPB Q8H FITO Rx#: [id number] cefTRIAXone 1 gm In 50 Sodium Chloride 0.9% 50 ml @ 100 mls/hr IVPB Q24HR FITO Rx#:[id number] Oral 100 Output: Drainage 80 Right Back 80 Urine 480 500 Other: Voiding Method Indwelling Catheter Urinal ABP, PAP, CO, CI - Last Documented Arterial Blood Pressure 162/72 - Exam Gen: AOx3, NAD VSS stable at this time Integument: Postoperative bandage was removed today. All jennifer and sutures are in good position and condition. There is no active drainage or active skin breakdown. The drain is still intact. A small abrasion that was noted at surgery the right flank, this is well healing at this time I'm dressing was placed there. A Optefoam dressing was placed throughout the surgical wound. Palpation: Mild tenderness with palpation of the midline and paraspinal regions of the t horacic ROM: Range of motion is intact in all major muscle groups of the bilateral upper and lower extremities Sensory Exam: Senory exam to light touch is intact C5-T1 Senosry exam to light touch is intact L2-S1 Motor: 5 out of 5 strength is appreciated with bilateral upper extremity forward letty vation, abduction, elbow flexion and extension, wrist extension and flexions and intrinsics 4/5 strength appreciated with the right lower extremity with regards to hip flexion, knee extension, knee flexion, EHL. 5 out of 5 strength is appreciated with FHL, plantar flexion and dorsiflexion Reflexes: 2/4 in all UE and LE Negative Homans bilaterally, negative instability, negative clonus bilaterally - Labs CBC & Chem 7: 09/28/20 07:07 09/27/20 03:40 Labs: Abnormal Lab Results - Last 24 Hours (Table) 09/28/20 Range/Units 07:07 RBC 3.30 L (4.40-5.60) X 10*6/uL Hgb 10.0 L (13.0-17.0) g/dL Hct 32.0 L (39.6-50.0) % MCHC 31.3 L (32.0-37.0) g/dL RDW 14.8 H (11.5-14.5) % Plt Count 110 L (140-440) X 10*3/uL Immature Gran # 0.10 H (0.00-0.04) X 10*3/uL Lymphocytes # 0.27 L (0.90-5.00) X 10*3/uL Microbiology - Last 24 Hours (Table) 09/25/20 23:06 Gram Stain - Final Sputum Sputum Culture - Final 09/26/20 00:35 Urine Culture - Final Urine,Voided Assessment and Plan Assessment: Postoperative day 3 status post T6-L1 fixation for T9-10 unstable B1 fractures. Plan: Pain control, continue current medication regimen. DVT prophylaxis, continue Eliquis Other medical specially recommendations Continue with daily physical therapy. Had a long conversation with the patient today regarding the need for the patient to be up moving around more. I did explain him his goal this week and should include getting back and forth to the chair with the assistance of a walker. Continue bracing of the right lower extremity while up and about. He will also continue use of the TLSO brace when up and about Trend labs Continue antibiotics Plan for dressing change on Thursday with possible drain removal on Thursday also We'll continue to follow patient during inpatient stay
--- NOTE | 2020-09-28 13:19 | P.PN ---
Subjective Progress Note Date: 09/28/20 - Reason for Consult Metastatic lung cancer, preoperative clearance - History of Present Illness 80-year-old pleasant male fairly functional before his severe back pain secondary to metastatic lung cancer. Patient is admitted secondary to fall found to have fracture of the T9 vertebral body. Orthotic surgery evaluation there are planning on stimulation his surgery for this vertebral body. Patient appears to have a pathological fracture patient is also found to have right knee strain without any fracture and knee effusion. Patient had multiple hospital physicians recently for severe back pain for which patient had a biopsy which showed metastatic metastatic non-small cell lung cancer for which patient is presently receiving radiation therapy patient had a recent kyphoplasty of pathological fracture of T10 vertebral body. Patient is a well-known and very pleasant gentleman does have some medical problems including obesity hypoventilation syndrome and sleep apnea. 09/21/2020 Patient is seen and evaluated in follow-up with no acute overnight issues. Does have his back brace on and is currently sitting up in the chair with family at the bedside. Patient is attempting for aggressive physical therapy and getting up and sitting in the chair at least 3 times per day. We are currently following along with orthopedic surgery and possible tentative surgery next Thursday if patient's progression with physical therapy does not help. Patient is attempting to avoid surgery if possible. 09/22/2020 Patient the started having pain again pain management is managing the patient patient was started back on fentanyl patch 09/23/2020 Patient's the pain is better. Patient had bowel movement today. 09/24/2020 Patient is seen and evaluated in follow-up and reports to having some increased back pain. Patient is tentatively scheduled for surgical intervention in the morning. Will hold Lovenox after today and patient will be nothing by mouth at midnight. Repeat labs today within normal limits. Patient denies any chest pain or palpitations. Patient is afebrile. 09/25/2020 Patient was seen and evaluated this morning prior to being taken for surgery this morning with no acute overnight issues. Lovenox was held and patient is nothing by mouth. Will await surgical report and repeat a.m. labs and continue to monitor closely. Patient will be returning to the ICU for close monitoring status post surgery. 09/26/2020 Patient is seen this morning currently remains in the ICU being closely monitored. Patient was extubated successfully and is following commands and alert and oriented. Patient does have pain and will continue with pain management medications. Patient is status post surgical intervention with Dr. Cee. Hemoglobin stable this morning at 11.2, white blood count 9.9, sodium 136, potassium 4.1, and creatinine 0.57. Continue with Accu-Cheks every 6 and diet will be resumed. Lovenox also being restarted. Blood pressure slightly elevated this morning prior to receiving Coreg and will be closely monitored in the ICU. 09/27/2020 Patient is seen in follow-up continues to be in the ICU awaiting for transition to [facility]. Patient is being closely monitored status post T6 through L1 spinal decompression and fusion surgery with Dr. Cee. Patient was started on IV ceftriaxone for the possibility of UTI although culture report finalized showing normal bay. Patient denies any dysuria or retention and currently has an indwelling Tran catheter status post surgery. Patient maintained on Lovenox although okay to resume Eliquis. Patient currently working with physical therapy and reapplying back brace at the side of the bed. Patient continues to be in pain and is maintained on pain medications per primary service. White blood count is normal at 7.4 hemoglobin is stable at 10.3, current sodium is 134 with a potassium of 3.9 and creatinine is 0.51. Blood sugars have been fairly well controlled not requiring any insulin and patient is maintained on Accu- Cheks. Patient is tolerating diet and being advanced as tolerated. Patient denies any chest pain or shortness of breath. Nursing staff working on weaning FiO2 and patient is currently maintained on 2 L at 96-100%. 09/28/2020 Patient is seen and evaluated in follow-up this morning on [facility] unit and has been transferred out of the ICU and is being closely monitored. Patient is having continued back pain this morning and has been standing at the bedside although not much walking. PT/OT following. CBC within normal limits will repeat a.m. labs and monitor closely. Review of systems: Constitutional: No reports of fatigue, fever, or chills Cardiovascular: No reports of chest pain or palpitations Respiratory: No reports of shortness of breath or cough GI: No reports of nausea, vomiting, or diarrhea : No reports of dysuria or retention Neurovascular: reports generalized weakness and continued back pain All medications have been reviewed Objective - Vital Signs Vital signs: Vital Signs Temp 97.4 F L 09/28/20 05:00 Pulse 99 09/28/20 05:00 Resp 18 09/28/20 05:00 BP 124/84 09/28/20 05:00 Pulse Ox 96 09/28/20 05:00 Intake & Output 09/27/20 09/28/20 09/28/20 18:59 06:59 18:59 Intake Total 909 1000 Output Total 480 580 Balance 429 420 Weight 129.8 kg Intake: IV 909 900 Lactated Ringers 1,000 ml 525 900 @ 75 mls/hr IV .[id number] FITO Rx#:[id number] Vancomycin 2,000 mg In 334 Sodium Chloride 0.9% 500 ml 500 ml @ 167 mls/hr IVPB Q8H FITO Rx#: [id number] cefTRIAXone 1 gm In 50 Sodium Chloride 0.9% 50 ml @ 100 mls/hr IVPB Q24HR FITO Rx#:[id number] Oral 100 Output: Drainage 80 Right Back 80 Urine 480 500 Other: Voiding Method Indwelling Catheter Urinal ABP, PAP, CO, CI - Last Documented Arterial Blood Pressure 162/72 - Exam GENERAL: The patient is alert and oriented x3, not in any acute distress. Well developed, well nourished. Currently on 4 L of oxygen via nasal cannula and discuss with nursing staff about weaning as tolerated HEENT: Pupils are round and equally reacting to light. EOMI. No scleral icterus. No conjunctival pallor. Normocephalic, atraumatic. No pharyngeal erythema. No thyromegaly. CARDIOVASCULAR: S1 and S2 present. No murmurs, rubs, or gallops. PULMONARY: Chest is clear to auscultation, no wheezing or crackles. ABDOMEN: Soft, nontender, nondistended, normoactive bowel sounds. No palpable organomegaly. MUSCULOSKELETAL: Deferred to orthopedic surgery EXTREMITIES: No cyanosis, clubbing, or pedal edema. NEUROLOGICAL: Gross neurological examination did not reveal any focal deficits. Diffuse weakness SKIN: No rashes. - Labs CBC & Chem 7: 09/28/20 07:07 09/27/20 03:40 Labs: Abnormal Lab Results - Last 24 Hours (Table) 09/28/20 Range/Units 07:07 RBC 3.30 L (4.40-5.60) X 10*6/uL Hgb 10.0 L (13.0-17.0) g/dL Hct 32.0 L (39.6-50.0) % MCHC 31.3 L (32.0-37.0) g/dL RDW 14.8 H (11.5-14.5) % Plt Count 110 L (140-440) X 10*3/uL Immature Gran # 0.10 H (0.00-0.04) X 10*3/uL Lymphocytes # 0.27 L (0.90-5.00) X 10*3/uL Microbiology - Last 24 Hours (Table) 09/25/20 23:06 Gram Stain - Final Sputum Sputum Culture - Final 09/26/20 00:35 Urine Culture - Final Urine,Voided Assessment and Plan Assessment: -T9 vertebral body fracture: Patient is status post surgical intervention with orthopedic surgery postop day #3 -Right knee strain without any fracture, using immobilizer while out of bed -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 fib patient is presently rate and rate controlled patient does have a pacemaker. Patient is on Eliquis which can be resumed -Hypertension -Obesity -Coronary artery disease Plan: Continue with current medications and physical therapy. Patient recently underwent orthopedic surgical intervention. Patient is status post extubation from procedure and currently maintained on 4 L nasal cannula and weaning as tolerated. Patient tolerating diet and advance as tolerated. Patient has been resumed on Eliquis. Will continue to follow along closely with orthopedic surgery. Will repeat a.m. labs. Continue to encourage and offer incentive spirometer and use at least 10 times every hour while awake .Further recommendations to follow based on the clinical course of the patient. Thank you for this consultation.
[2020-09-28] MEDS: oxyCODONE ER 20 MG TAB.ER.12H PO PRN (13:48)
[2020-09-28 14:19] LABS: African American GFR (CKD) 111.6 (60.0-200.0); Anion Gap 5.6 mmol/L (4.00-12.00); BUN/Creat Ratio 18.33 Ratio (12.00-20.00); Calcium 8.2 mg/dL (8.7-10.3); Carbon Dioxide 32.4 mmol/L (21.6-31.8); Non-African American GFR(CKD) 96.3 (60.0-200.0); Potassium 3.8 mmol/L (3.5-5.5)
[2020-09-28] MEDS: LACTATED RINGERS 1,000 ML IV SCH (15:14)
--- NOTE | 2020-09-28 15:23 | P.PN ---
Subjective Progress Note Date: 09/28/20 Principal diagnosis: Metastatic Cancer Has been transferred from ICU, post operative monitoring to [facility]. Objective - Vital Signs Vital signs: Vital Signs Temp 97.4 F L 09/28/20 05:00 Pulse 99 09/28/20 05:00 Resp 18 09/28/20 05:00 BP 124/84 09/28/20 05:00 Pulse Ox 96 09/28/20 05:00 Intake & Output 09/27/20 09/28/20 09/28/20 18:59 06:59 18:59 Intake Total 909 1000 Output Total 480 580 Balance 429 420 Weight 129.8 kg Intake: IV 909 900 Lactated Ringers 1,000 ml 525 900 @ 75 mls/hr IV .[id number] FITO Rx#:[id number] Vancomycin 2,000 mg In 334 Sodium Chloride 0.9% 500 ml 500 ml @ 167 mls/hr IVPB Q8H FITO Rx#: [id number] cefTRIAXone 1 gm In 50 Sodium Chloride 0.9% 50 ml @ 100 mls/hr IVPB Q24HR FITO Rx#:[id number] Oral 100 Output: Drainage 80 Right Back 80 Urine 480 500 Other: Voiding Method Indwelling Catheter Urinal ABP, PAP, CO, CI - Last Documented Arterial Blood Pressure 162/72 - Exam - Constitutional General appearance: cooperative, no acute distress - EENT Eyes: EOMI, PERRLA ENT: hard of hearing, NA/AT - Neck Neck: normal ROM - Respiratory Respiratory: bilateral: diminished - Cardiovascular Rhythm: regular leg Peripheral Edema: bilateral: 2+ - Gastrointestinal General gastrointestinal: soft - Integumentary Integumentary: pale - Neurologic RYAN due to pain - Musculoskeletal Musculoskeletal: generalized weakness - Psychiatric Psychiatric: A&O x's 3 - Labs CBC & Chem 7: 09/28/20 07:07 09/28/20 07:07 Labs: Abnormal Lab Results - Last 24 Hours (Table) 09/28/20 09/28/20 Range/Units 07:07 07:07 RBC 3.30 L (4.40-5.60) X 10*6/uL Hgb 10.0 L (13.0-17.0) g/dL Hct 32.0 L (39.6-50.0) % MCHC 31.3 L (32.0-37.0) g/dL RDW 14.8 H (11.5-14.5) % Plt Count 110 L (140-440) X 10*3/uL Immature Gran # 0.10 H (0.00-0.04) X 10*3/uL Lymphocytes # 0.27 L (0.90-5.00) X 10*3/uL Carbon Dioxide 32.4 H (21.6-31.8) mmol/L Calcium 8.2 L (8.7-10.3) mg/dL Microbiology - Last 24 Hours (Table) 09/25/20 23:06 Gram Stain - Final Sputum Sputum Culture - Final 09/26/20 00:35 Urine Culture - Final Urine,Voided Assessment and Plan Plan: Assessment and Recommendations: Recurrent Non-Small Cell Lung Ca: With recent progression to bone/spine - Status post radiation therapy positive bone biopsy T10 NSCLCA poorly differentiated - Will send path for molecular NGS, prior lung biopsy was PDL1 - 90% Recent Fall with Multiple pathological fractures: - T9 and T10 Fractures, unable to perform MRI due to stents and pacer - Status Post surgical intervention with orthospine - At this time no improvements planning on intervention today Neoplastic related pain: - Continue current regimen Continue support care. Treatment plan to be consisdered following increased performance and discharge from hospitalization
[2020-09-29] MEDS: HYDROmorphone 1 MG/ML 1 ML SYRINGE IVP PRN ×3 (03:29→17:21)
[2020-09-29] MEDS ORDERED: VANCOMYCIN TROUGH DUE 1 EACH MISC MISCELLANE ONE (05:00)
[2020-09-29] MEDS: oxyCODONE ER 20 MG TAB.ER.12H PO PRN (05:18)
[2020-09-29] MEDS: VANCOMYCIN 2,000 MG in SODIUM CHLORIDE 0.9% 500 ML 500 ML IVPB SCH ×2 (05:20→22:16)
[2020-09-29] MEDS: LACTATED RINGERS 1,000 ML IV SCH ×2 (05:49→16:51)
[2020-09-29] MEDS: PANTOPRAZOLE 40 MG/10 ML VIAL IV SCH (08:29)
[2020-09-29] MEDS: APIXABAN 5 MG TAB PO SCH ×2 (08:29→22:16)
[2020-09-29] MEDS: SENNOSIDES 8.6 MG TAB PO SCH ×2 (08:29→22:16)
[2020-09-29] MEDS: GABAPENTIN 300 MG CAP PO SCH ×3 (08:30→22:16)
[2020-09-29] MEDS: carvediloL 3.125 MG TAB PO SCH ×2 (08:30→16:52)
[2020-09-29] MEDS: amLODIPine 5 MG TAB PO SCH (08:30)
--- NOTE | 2020-09-29 11:18 | P.PN ---
Progress Note - Text Progress Note Date: 09/29/20 Patient is lying in bed. He appears to be comfortable with no complaints today. There appears to be good perfusion to the lower extremities. Homans and Chepe negative bilaterally. Distal neurovascular exam is otherwise unchanged. Impression: Status post T6-L1 fixation Plan: Continue with antibiotics Continue with drain DVT prophylaxis Medical management
[2020-09-29 11:34] LABS: Basophils % (A) 0 %; Eosinophils # (A) 0.4 k/uL (0-0.7); Eosinophils % (A) 7 %; HCT 30.8 % (39.0-53.0); HGB 10.4 gm/dL (13.0-17.5); Lymphocytes # (A) 0.3 k/uL (1.0-4.8); Lymphocytes % (A) 5 %; MCH 31.5 pg (25.0-35.0); MCHC 33.8 g/dL (31.0-37.0); MCV 93.3 fL (80.0-100.0); Mean Platelet Volume 8.8; Monocytes # (A) 0.3 k/uL (0-1.0); Monocytes % (A) 5 %; Neutrophils # (A) 4.8 k/uL (1.3-7.7); Neutrophils % (A) 81 %; Platelet Count 133 k/uL (150-450); RBC 3.31 m/uL (4.30-5.90); RDW 14.8 % (11.5-15.5); WBC 5.9 k/uL (3.8-10.6)
[2020-09-29 11:42] LABS: ALT 22 U/L (4-49); AST 28 U/L (17-59); African American GFR (CKD) >90 (>60 ml/min/1.73 sqM); Albumin 2.2 g/dL (3.5-5.0); Alkaline Phosphatase 150 U/L (38-126); Anion Gap 5 mmol/L; Blood Urea Nitrogen 11 mg/dL (9-20); Calcium 8.5 mg/dL (8.4-10.2); Carbon Dioxide 31 mmol/L (22-30); Chloride 102 mmol/L (98-107); Globulin 2.3 g/dL; Glucose 129 mg/dL (74-99); Non-African American GFR(CKD) >90 (>60 ml/min/1.73 sqM); Potassium 3.8 mmol/L (3.5-5.1); Sodium 138 mmol/L (137-145); Total Bilirubin 0.5 mg/dL (0.2-1.3); Total Protein 4.5 g/dL (6.3-8.2)
[2020-09-29 12:41] LABS: ABG Base Excess 9.3 mmol/L; ABG HCO3 36 mmol/L (21-25); ABG Oxygen Saturation 87.7 % (94-97); ABG PH 7.28 (7.35-7.45); ABG TCO2 39 mmol/L (19-24); Allen Test Performed? Yes
[2020-09-29 12:42] LABS: ABG PCO2 77 mmHg (35-45)
[2020-09-29 12:43] LABS: ABG PO2 55 mmHg (83-108)
[2020-09-29] MEDS ORDERED: FUROSEMIDE 10 MG/ML 4 ML VIAL IV STA (14:38)
--- NOTE | 2020-09-29 14:52 | P.PN ---
Subjective Progress Note Date: 09/29/20 80-year-old male patient with known history of metastatic lung cancer who has been suffering from back pain due to a T9 and T10 acute splits-type fracture was receiving conservative management with physical therapy and bracing and narcotics. Patient continued to have ongoing pain and for that reason the patient was taken to the operating room where the patient underwent T6 through L1 posterior decompression and fusion. Postop, the patient was transferred to the intensive care unit. The patient for nausea and intubated sedated with propofol and the patient is currently on assist control mode. She is on a rate of 18 Tidal volume of 550, FiO2 of 50% with a PEEP of 5 and a blood gas showed a pH of 7.36 and a pCO2 of 46 and pO2 of 236. Accordingly, the FiO2 has been weaned off. The patient was given vancomycin perioperatively for antibiotic prophylaxis. Currently is on IV Protonix. He is receiving Dilaudid 1 mg every 3 hours for pain control in addition to fentanyl 50 g IV every 3 hours and the patient is also on Flexeril 10 mg by mouth twice a day. Hemodynamically stable on no pressors. Currently on IV fluids with normal saline running at the rate of 150 mL an hour. Urine output is adequate for now.Note that this patient was seen preoperatively prior to his back surgery. The patient is known to have COPD along with previous history of atrial fibrillation and pacemaker insertion. He has CHF and hypertension. Also, the patient carries the diagnoses of metastatic lung cancer diagnosed back in September 2019. The patient presented with left upper lobe mass back then. The patient is obstructive sleep apnea as well as his BiPAP on outpatient basis. Noted the patient has already received A pleasant 2 T10 and following that the patient has received radiation therapy to the spine. We have given this patient pulmonary clearance. His FEV1 has been ordered of 1.97 L preoperatively. On today's evaluation, chest x-ray shows a left upper lobe mass and several scattered bilateral pulmonary lesions consistent with his metastatic lung cancer. ET tube is sitting high in the trachea. There is a pacemaker in the left anterior chest area. The patient remains on the same vent setting and the blood gases from today shows a pH of 7.43 with a pCO2 of 39 and pO2 of 87. No significant orotracheal secretions. He is still on propofol which is being weaned off in preparation for checking his weaning parameters and possible extubation. He has remained hemodynamically stable overnight. As the patient is being weaned off the sedation, his blood pressure is going up and is also being monitored. In terms of his blood work this morning, the patient has a white cell count of 9.9 with a hemoglobin of 11.2 and the platelet count of 121, his BUN is 17 with a creatinine of 0.7 and sodium level is 136. UA was abnormal with clumps of white cells and the patient remains on vancomycin. A dose of Rocephin will be given pending urine cultures. On today's evaluation of 09/27/2020, the patient is postop day #2. He was extubated yesterday without any major difficulties. This morning he is on oxygen at 2 L per minute nasal cannula. He is resting comfortably in bed. He i s using incentive spirometer. He is on pain control with a combination of the dilaudid And fentanyl and he is taking Dilaudid 2 mg every 3 hours and has an acceptable pain control. No chest x-ray from today. He is only on oxygen at 2 L without any signs of respiratory distress. The patient is currently on Lovenox for DVT prophylaxis. A CAT scan of the thoracic and the lumbar spine was done yesterday. At around 1 PM and the CAT scan showed postoperative changes with laminectomy and Clemons rods extending from T6 down to L1. No complications post surgery. As mentioned, surgical wound site is clean. There hemoglobin is at 10.3. Renal function stable. UA was abnormal and the patient was given Rocephin and he is also on vancomycin. The cultures are still pending for now. The primary cultures are negative for the time being. The patient is afebrile. The white cell count is at 7.4. No other significant events otherwise for now. His blood pressure is adequately controlled and the patient's cardiac rhythm is controlled atrial fibrillation. 09/28/2020, the patient is postop day #3. He was weaned off the mechanical ventilator and the patient was extubated without any major difficulties and following that the patient was transferred to a medical floor. Currently is on oxygen at 4 L per minute nasal cannula and he is using incentive spirometer. He is on pain control with a combination of Dilaudid and fentanyl when necessary. He is mainly using Dilaudid. He is post laminectomy and fusion levels T6 through L1.. He is tolerating his diet. He was given laxatives and he has not had a bowel movement yet. This is something that needs to be monitored very closely. Urine cultures are negative and the patient was given a dose of Rocephin and the patient is afebrile for now. No other new complaints for now. She was able to stand up with help of physical therapy. He has a walker at the bedside. He is also using incentive spirometer. On 09/09/2020, I was asked to evaluate this patient because of some worsening in his mentation as the patient was found to be more lethargic and confused. Blood gases was done and the patient was found to have an acute on top of chronic hypercapnic respiratory failure. His pH was at 7.22 with a pCO2 of 77 and a pO2 of 55. This was on FiO2 of 32%. At that point, the patient was placed on BiPAP. The exact cause for this includes on top of chronic hypercapnic respiratory failure is not clear. Note that the patient has chronic pain issues. He typically hyperventilates. He also takes a combination of drugs including Dilaudid and oxycodone and Flexeril all potentially contributing to hypercapnia. He is on long-term and to coagulation with Eliquis. After being on BiPAP for around 2 hours, the patient became progressively more active and interactive. Currently is going all 4 extremities. A chest x-rays to follow. The patient was also given diuretics. Further recommendations are to follow based on the workup and the findings. He is currently postop day #4. He stated that his pain is under better control for now. His BiPAP setting is currently at 14/6 with a FiO2 of 35%. He is able to generate good tidal volumes. No significant tachypnea. He remains in atrial fibrillation for now. Objective - Vital Signs Vital signs: Vital Signs Temp 98.3 F 09/29/20 12:25 Pulse 90 09/29/20 12:25 Resp 18 09/29/20 12:25 BP 131/78 09/29/20 12:25 Pulse Ox 96 09/29/20 12:25 Intake & Output 09/28/20 09/29/20 09/29/20 18:59 06:59 18:59 Intake Total 3620 Output Total 180 Balance 3440 Weight 129 kg Intake: IV 50 cefTRIAXone 1 gm In 50 Sodium Chloride 0.9% 50 ml @ 100 mls/hr IVPB Q24HR FITO Rx#:[id number] Intake, IV Titration 1750 Amount Lactated Ringers 1,000 ml 1200 @ 75 mls/hr IV .[id number] FITO Rx#:[id number] Vancomycin 2,000 mg In 500 Sodium Chloride 0.9% 500 ml 500 ml @ 167 mls/hr IVPB Q12H FITO Rx#: [id number] cefTRIAXone 1 gm In 50 Sodium Chloride 0.9% 50 ml @ 100 mls/hr IVPB Q24HR FITO Rx#:[id number] Oral 1820 Output: Drainage 180 Right Back 180 Other: Voiding Method Urinal Urinal # Voids 5 2 ABP, PAP, CO, CI - Last Documented Arterial Blood Pressure 162/72 - Exam GENERAL EXAM: Alert, pleasant 80-year-old gentleman, , the patient is currently on a BiPAP pressures of 14/6 with an FiO2 of 35%. Arousable, follows simple commands, awake, lethargic. The patient had a triple lumen catheter in his right IJ. HEAD: Normocephalic. EYES: Normal reaction of pupils, equal size. NOSE: Clear with pink turbinates. THROAT: No erythema or exudates. NECK: No masses, no JVD. CHEST: No chest wall deformity. LUNGS: Equal air entry with no crackles, wheeze, rhonchi or dullness. CVS: Controlled atrial fibrillation with irregular S1 and S2 normal with no audible murmur, regular rhythm. ABDOMEN: No hepatosplenomegaly, normal bowel sounds, no guarding or rigidity. SPINE: Recent surgery incisions clean dry well approximated SKIN: No rashes, surgical wound site over the back areas dry clean and intact. CENTRAL NERVOUS SYSTEM: the patient is currently sedated. EXTREMITIES: Some edema of the right knee. There is no peripheral edema. No clubbing, no cyanosis. Peripheral pulses are intact. - Labs CBC & Chem 7: 09/29/20 05:17 09/29/20 05:17 Labs: Abnormal Lab Results - Last 24 Hours (Table) 09/29/20 09/29/20 09/29/20 Range/Units 05:17 05:17 12:36 RBC 3.31 L (4.30-5.90) m/uL Hgb 10.4 L (13.0-17.5) gm/dL Hct 30.8 L (39.0-53.0) % Plt Count 133 L (150-450) k/uL Lymphocytes # 0.3 L (1.0-4.8) k/uL ABG pH 7.28 L (7.35-7.45) ABG pCO2 77 H* (35-45) mmHg ABG pO2 55 L* (83-108) mmHg ABG HCO3 36 H (21-25) mmol/L ABG Total CO2 39 H (19-24) mmol/L ABG O2 Saturation 87.7 L (94-97) % Carbon Dioxide 31 H (22-30) mmol/L Creatinine 0.64 L (0.66-1.25) mg/dL Glucose 129 H (74-99) mg/dL Alkaline Phosphatase 150 H (38-126) U/L Total Protein 4.5 L (6.3-8.2) g/dL Albumin 2.2 L (3.5-5.0) g/dL Assessment and Plan Plan: 1 acute back pain secondary to [employer] [place] implant fracture T9 vertebral body, chance fracture T10 vertebral body, the patient is currently postop and the patient has undergone T6 through L1 spine decompression/fusion a month and the patient has Clemons rods. The patient is postop day #4 . The patient was extubated without any major difficulties and S2 to evaluate this patient for development of an acute on top of chronic hypercapnic the story failure. 2 acute hypoxic respiratory failure, and an acute on top of chronic hypercapnic respiratory failure. The cause of respiratory failure is multifactorial. He is known to have metastatic end-stage lung cancer and the same time he does have an underlying sleep breathing disorder, morbidly obese and he is taking a combination of narcotics. Consider underlying aspiration. Consider underlying fluid overload. Remains in atrial fibrillation. Blood work from today 3 Metastatic 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 with subsequent radiation 4 Squamous cell carcinoma the lung, stage IV 5 Recent kyphoplasty for pathologic fracture of vertebral body T10 6 History of multiple pulmonary nodules present for greater than 5 years suspected old granulomatous disease versus sarcoid, no changes 7 History of chronic atrial fibrillation, status post permanent pacemaker implantation 8 Obesity hypoventilation syndrome/obstructive sleep apnea, on BiPAP in the outpatient setting 9 Hypertension 10 Morbid obesity 11 History of coronary artery disease with previous stent placement 12 Former smoker plan Continue BiPAP for now Stat chest x-ray Lasix 40 mg IV push Continue BiPAP for now. He may be coming off the BiPAP within the next few hours as the patient arouses. Eliquis anticoagulation IV fluids with lactated Ringer at kvo GI prophylaxis with IV Protonix Postoperative antibiotics with vancomycin, CAT scan of the thoracolumbar spine was noted and there are essentially showing postsurgical changes We'll continue to follow
--- NOTE | 2020-09-29 17:53 | XR ---
EXAMINATION TYPE: XR chest 1V portable DATE OF EXAM: 09/29/2020 COMPARISON: 09/26/2020. HISTORY: Tube placement. TECHNIQUE: Single frontal view of the chest is obtained. FINDINGS: There is removal of the endotracheal tube. The right IJ catheter remains in place. There i s increased moderate opacities in the left upper to midlung. No pleural effusion, or pneumothorax see n. Stable cardiomegaly and left pacemaker. The osseous structures are stable. Thoracolumbar fusion is again seen. IMPRESSION: Worsening left opacities.
[2020-09-29] MEDS: traMADol 50 MG TAB PO PRN (22:16)
[2020-09-29 22:40] LABS: Glucose,Whole Blood 130 mg/dL (75-99)
--- NOTE | 2020-09-30 00:43 | P.PN ---
Subjective Progress Note Date: 09/29/20 80-year-old pleasant male fairly functional before his severe back pain secondary to metastatic lung cancer. Patient is admitted secondary to fall found to have fracture of the T9 vertebral body. Orthotic surgery evaluation there are planning on stimulation his surgery for this vertebral body. Patient appears to have a pathological fracture patient is also found to have right knee strain without any fracture and knee effusion. Patient had multiple hospital physicians recently for severe back pain for which patient had a biopsy which showed metastatic metastatic non-small cell lung cancer for which patient is presently receiving radiation therapy patient had a recent kyphoplasty of pathological fracture of T10 vertebral body. Patient is a well-known and very pleasant gentleman does have some medical problems including obesity hypoventilation syndrome and sleep apnea. 09/21/2020 Patient is seen and evaluated in follow-up with no acute overnight issues. Does have his back brace on and is currently sitting up in the chair with family at the bedside. Patient is attempting for aggressive physical therapy and getting up and sitting in the chair at least 3 times per day. We are currently following along with orthopedic surgery and possible tentative surgery next Thursday if patient's progression with physical therapy does not help. Patient is attempting to avoid surgery if possible. 09/22/2020 Patient the started having pain again pain management is managing the patient patient was started back on fentanyl patch 09/23/2020 Patient's the pain is better. Patient had bowel movement today. 09/24/2020 Patient is seen and evaluated in follow-up and reports to having some increased back pain. Patient is tentatively scheduled for surgical intervention in the morning. Will hold Lovenox after today and patient will be nothing by mouth at midnight. Repeat labs today within normal limits. Patient denies any chest pain or palpitations. Patient is afebrile. 09/25/2020 Patient was seen and evaluated this morning prior to being taken for surgery this morning with no acute overnight issues. Lovenox was held and patient is nothing by mouth. Will await surgical report and repeat a.m. labs and continue to monitor closely. Patient will be returning to the ICU for close monitoring status post surgery. 09/26/2020 Patient is seen this morning currently remains in the ICU being closely monitored. Patient was extubated successfully and is following commands and alert and oriented. Patient does have pain and will continue with pain management medications. Patient is status post surgical intervention with Dr. Cee. Hemoglobin stable this morning at 11.2, white blood count 9.9, sodium 136, potassium 4.1, and creatinine 0.57. Continue with Accu-Cheks every 6 and diet will be resumed. Lovenox also being restarted. Blood pressure slightly elevated this morning prior to receiving Coreg and will be closely monitored in the ICU. 09/27/2020 Patient is seen in follow-up continues to be in the ICU awaiting for transition to [facility]. Patient is being closely monitored status post T6 through L1 spinal decompression and fusion surgery with Dr. Cee. Patient was started on IV ceftriaxone for the possibility of UTI although culture report finalized showing normal bay. Patient denies any dysuria or retention and currently has an indwelling Tran catheter status post surgery. Patient maintained on Lovenox although okay to resume Eliquis. Patient currently working with physical therapy and reapplying back brace at the side of the bed. Patient continues to be in pain and is maintained on pain medications per primary service. White blood count is normal at 7.4 hemoglobin is stable at 10.3, current sodium is 134 with a potassium of 3.9 and creatinine is 0.51. Blood sugars have been fairly well controlled not requiring any insulin and patient is maintained on Accu- Cheks. Patient is tolerating diet and being advanced as tolerated. Patient denies any chest pain or shortness of breath. Nursing staff working on weaning FiO2 and patient is currently maintained on 2 L at 96-100%. 09/28/2020 Patient is seen and evaluated in follow-up this morning on [facility] unit and has been transferred out of the ICU and is being closely monitored. Patient is having continued back pain this morning and has been standing at the bedside although not much walking. PT/OT following. CBC within normal limits will repeat a.m. labs and monitor closely. On 09/29/2020 -the nursing staff reported that the patient was confused and lethargic this morning. When I went into the room patient was confused, he knew his name but mentions that he does not feel good but he cannot explain to me what is going on. He was found to be tachypneic and tachycardic. Review of systems could not be done as the patient was confused. On looking at his vitals his T-max 98.2, heart rate 97, respiratory rate 25, shallow breathing, blood pressure 117 x 75 and saturating at 93% on 2 L of nasal cannula. On reviewing his labs white count of 5.9, hemoglobin 10.4, platelets 133. Sodium 143, potassium 3.8, chloride 105, bicarb 32, BUN 11, creatinine 0.6. All medication reviewed Objective - Vital Signs Vital signs: Vital Signs Temp 98.2 F 09/29/20 04:46 Pulse 97 09/29/20 04:46 Resp 18 09/29/20 04:46 BP 117/75 09/29/20 04:46 Pulse Ox 93 L 09/29/20 04:46 Intake & Output 09/28/20 09/29/20 09/29/20 18:59 06:59 18:59 Intake Total 3620 Output Total 180 Balance 3440 Weight 129 kg Intake: IV 50 cefTRIAXone 1 gm In 50 Sodium Chloride 0.9% 50 ml @ 100 mls/hr IVPB Q24HR FITO Rx#:[id number] Intake, IV Titration 1750 Amount Lactated Ringers 1,000 ml 1200 @ 75 mls/hr IV .[id number] FITO Rx#:[id number] Vancomycin 2,000 mg In 500 Sodium Chloride 0.9% 500 ml 500 ml @ 167 mls/hr IVPB Q12H FITO Rx#: [id number] cefTRIAXone 1 gm In 50 Sodium Chloride 0.9% 50 ml @ 100 mls/hr IVPB Q24HR FITO Rx#:[id number] Oral 1820 Output: Drainage 180 Right Back 180 Other: Voiding Method Urinal Urinal # Voids 5 2 ABP, PAP, CO, CI - Last Documented Arterial Blood Pressure 162/72 - Exam GENERAL: The patient is alert and oriented x 1-2 , Currently on 6 L of oxygen via nasal cannula , Shallow breathing. HEENT: Pupils are round and equally reacting to light. EOMI. No scleral icterus. No conjunctival pallor. CARDIOVASCULAR: S1 and S2 present. Tachycardia PULMONARY: Diminishes Breath sounds in all lung devries . ABDOMEN: Soft, nontender, nondistended, hypoactive bowel sounds. MUSCULOSKELETAL: Right leg in a stabilizer EXTREMITIES: No cyanosis, clubbing, or pedal edema. NEUROLOGICAL: Moving all 4 extremities . Diffuse weakness . - Labs CBC & Chem 7: 09/30/20 10:48 09/30/20 07:30 Labs: Abnormal Lab Results - Last 24 Hours (Table) 09/28/20 Range/Units 07:07 Carbon Dioxide 32.4 H (21.6-31.8) mmol/L Calcium 8.2 L (8.7-10.3) mg/dL Microbiology - Last 24 Hours (Table) 09/25/20 23:06 Gram Stain - Final Sputum Sputum Culture - Final Assessment and Plan Assessment: ASSESSMENT Acute encephalopathy - multifactorial Acute hypoxic respiratory failure Chronic hypercapnic respiratory failure Obesity Hypoventilation syndrome -T9 vertebral body fracture: Patient is status post surgical intervention with orthopedic surgery postop day # 4 -Right knee strain without any fracture, using immobilizer while out of bed -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 fib patient is presently rate and rate controlled patient does have a pacemaker. Patient is on Eliquis which can be resumed -Hypertension -Obesity -Coronary artery disease PLAN:Patient is confused and lethargic, will get ABGs. ABG showing pH of 7.22, PCO2 77 and PO2 of 55 so the patient was started on BiPAP. It could be multifactorial patient is obese, taking pain medications including Dilaudid, oxycodone and Flexeril. He is to be continued on Eliquis for anticoagulation. He is on antibiotics in the form of vancomycin. Overall prognosis is guarded due to chronic medical conditions including end-stage metastatic lung cancer. Further recommendations to follow depending on the progress of the patient.
--- NOTE | 2020-09-30 01:19 | XR ---
EXAM: XR Abdomen, 2 Views CLINICAL HISTORY: ITS.REASON XR Reason: stool stasis possible TECHNIQUE: Frontal view of the abdomen/pelvis with upright view of the abdomen. COMPARISON: No relevant prior studies available. FINDINGS: Intraperitoneal space: No free air. Gastrointestinal tract: There does appear to be increased stool throughout much of the colon. The rectum is distended with stool. This may represent constipation. No evidence of bowel obstruction. Bones/joints: Posterior lumbar spinal fusion from at least T6-L1. Kyphoplasty at L1. Other findings: No abnormal mass-effect. IMPRESSION: No acute findings in the abdomen or pelvis. Increased stool load within the colon and rectum.
[2020-09-30] MEDS ORDERED: bisacodyL 10 MG SUPP RECTAL STA (03:54)
[2020-09-30] MEDS: LACTATED RINGERS 1,000 ML IV SCH (04:25)
[2020-09-30] MEDS: traMADol 50 MG TAB PO PRN ×2 (05:52→17:37)
[2020-09-30 08:08] LABS: ALT 23 U/L (4-49); AST 39 U/L (17-59); African American GFR (CKD) >90 (>60 ml/min/1.73 sqM); Albumin 2.3 g/dL (3.5-5.0); Alkaline Phosphatase 174 U/L (38-126); Anion Gap 5 mmol/L; Blood Urea Nitrogen 13 mg/dL (9-20); Calcium 8.1 mg/dL (8.4-10.2); Carbon Dioxide 35 mmol/L (22-30); Chloride 97 mmol/L (98-107); Globulin 2.2 g/dL; Glucose 132 mg/dL (74-99); Non-African American GFR(CKD) >90 (>60 ml/min/1.73 sqM); Potassium 3.4 mmol/L (3.5-5.1); Sodium 137 mmol/L (137-145); Total Bilirubin 0.7 mg/dL (0.2-1.3); Total Protein 4.5 g/dL (6.3-8.2)
[2020-09-30] MEDS: GABAPENTIN 300 MG CAP PO SCH ×3 (08:51→21:09)
[2020-09-30] MEDS: SENNOSIDES 8.6 MG TAB PO SCH ×2 (08:51→21:10)
[2020-09-30] MEDS: amLODIPine 5 MG TAB PO SCH (08:52)
[2020-09-30] MEDS: APIXABAN 5 MG TAB PO SCH ×3 (08:52→21:10)
[2020-09-30] MEDS: HYDROmorphone 0.5 MG/0.5 ML SYRINGE IVP PRN ×3 (08:52→19:34)
[2020-09-30] MEDS: carvediloL 3.125 MG TAB PO SCH ×2 (08:52→17:03)
[2020-09-30] MEDS: oxyCODONE ER 20 MG TAB.ER.12H PO PRN (10:47)
[2020-09-30] MEDS: PANTOPRAZOLE 40 MG/10 ML VIAL IV SCH (10:47)
--- NOTE | 2020-09-30 11:13 | P.PN ---
Progress Note - Text Progress Note Date: 09/30/20 Patient seen. He appears stable with no new complaints. Distal neurovascular exam appears stable. Homans and Chepe are negative. Impression: S/P T6-L1 Fixation Hx multiple comorbidities Plan: Continue IVAB DVT prophylaxix Continue medical management Probable drain removal tomorrow
[2020-09-30 11:24] LABS: Basophils % (A) 0 %; Eosinophils # (A) 0.6 k/uL (0-0.7); Eosinophils % (A) 10 %; HCT 30.6 % (39.0-53.0); HGB 10.8 gm/dL (13.0-17.5); Lymphocytes # (A) 0.5 k/uL (1.0-4.8); Lymphocytes % (A) 7 %; MCH 32.1 pg (25.0-35.0); MCHC 35.4 g/dL (31.0-37.0); MCV 90.6 fL (80.0-100.0); Mean Platelet Volume 7.6; Monocytes # (A) 0.3 k/uL (0-1.0); Monocytes % (A) 4 %; Neutrophils % (A) 77 %; Platelet Count 133 k/uL (150-450); RBC 3.37 m/uL (4.30-5.90); RDW 14.6 % (11.5-15.5); WBC 6.5 k/uL (3.8-10.6)
[2020-09-30] MEDS: VANCOMYCIN 2,000 MG in SODIUM CHLORIDE 0.9% 500 ML 500 ML IVPB SCH (13:01)
--- NOTE | 2020-09-30 15:47 | P.PN ---
Subjective Progress Note Date: 09/30/20 80-year-old male patient with known history of metastatic lung cancer who has been suffering from back pain due to a T9 and T10 acute splits-type fracture was receiving conservative management with physical therapy and bracing and narcotics. Patient continued to have ongoing pain and for that reason the patient was taken to the operating room where the patient underwent T6 through L1 posterior decompression and fusion. Postop, the patient was transferred to the intensive care unit. The patient for nausea and intubated sedated with propofol and the patient is currently on assist control mode. She is on a rate of 18 Tidal volume of 550, FiO2 of 50% with a PEEP of 5 and a blood gas showed a pH of 7.36 and a pCO2 of 46 and pO2 of 236. Accordingly, the FiO2 has been weaned off. The patient was given vancomycin perioperatively for antibiotic prophylaxis. Currently is on IV Protonix. He is receiving Dilaudid 1 mg every 3 hours for pain control in addition to fentanyl 50 g IV every 3 hours and the patient is also on Flexeril 10 mg by mouth twice a day. Hemodynamically stable on no pressors. Currently on IV fluids with normal saline running at the rate of 150 mL an hour. Urine output is adequate for now.Note that this patient was seen preoperatively prior to his back surgery. The patient is known to have COPD along with previous history of atrial fibrillation and pacemaker insertion. He has CHF and hypertension. Also, the patient carries the diagnoses of metastatic lung cancer diagnosed back in September 2019. The patient presented with left upper lobe mass back then. The patient is obstructive sleep apnea as well as his BiPAP on outpatient basis. Noted the patient has already received A pleasant 2 T10 and following that the patient has received radiation therapy to the spine. We have given this patient pulmonary clearance. His FEV1 has been ordered of 1.97 L preoperatively. On today's evaluation, chest x-ray shows a left upper lobe mass and several scattered bilateral pulmonary lesions consistent with his metastatic lung cancer. ET tube is sitting high in the trachea. There is a pacemaker in the left anterior chest area. The patient remains on the same vent setting and the blood gases from today shows a pH of 7.43 with a pCO2 of 39 and pO2 of 87. No significant orotracheal secretions. He is still on propofol which is being weaned off in preparation for checking his weaning parameters and possible extubation. He has remained hemodynamically stable overnight. As the patient is being weaned off the sedation, his blood pressure is going up and is also being monitored. In terms of his blood work this morning, the patient has a white cell count of 9.9 with a hemoglobin of 11.2 and the platelet count of 121, his BUN is 17 with a creatinine of 0.7 and sodium level is 136. UA was abnormal with clumps of white cells and the patient remains on vancomycin. A dose of Rocephin will be given pending urine cultures. On today's evaluation of 09/27/2020, the patient is postop day #2. He was extubated yesterday without any major difficulties. This morning he is on oxygen at 2 L per minute nasal cannula. He is resting comfortably in bed. He i s using incentive spirometer. He is on pain control with a combination of the dilaudid And fentanyl and he is taking Dilaudid 2 mg every 3 hours and has an acceptable pain control. No chest x-ray from today. He is only on oxygen at 2 L without any signs of respiratory distress. The patient is currently on Lovenox for DVT prophylaxis. A CAT scan of the thoracic and the lumbar spine was done yesterday. At around 1 PM and the CAT scan showed postoperative changes with laminectomy and Clemons rods extending from T6 down to L1. No complications post surgery. As mentioned, surgical wound site is clean. There hemoglobin is at 10.3. Renal function stable. UA was abnormal and the patient was given Rocephin and he is also on vancomycin. The cultures are still pending for now. The primary cultures are negative for the time being. The patient is afebrile. The white cell count is at 7.4. No other significant events otherwise for now. His blood pressure is adequately controlled and the patient's cardiac rhythm is controlled atrial fibrillation. 09/28/2020, the patient is postop day #3. He was weaned off the mechanical ventilator and the patient was extubated without any major difficulties and following that the patient was transferred to a medical floor. Currently is on oxygen at 4 L per minute nasal cannula and he is using incentive spirometer. He is on pain control with a combination of Dilaudid and fentanyl when necessary. He is mainly using Dilaudid. He is post laminectomy and fusion levels T6 through L1.. He is tolerating his diet. He was given laxatives and he has not had a bowel movement yet. This is something that needs to be monitored very closely. Urine cultures are negative and the patient was given a dose of Rocephin and the patient is afebrile for now. No other new complaints for now. She was able to stand up with help of physical therapy. He has a walker at the bedside. He is also using incentive spirometer. On 09/29/2020, I was asked to evaluate this patient because of some worsening in his mentation as the patient was found to be more lethargic and confused. Blood gases was done and the patient was found to have an acute on top of chronic hypercapnic respiratory failure. His pH was at 7.22 with a pCO2 of 77 and a pO2 of 55. This was on FiO2 of 32%. At that point, the patient was placed on BiPAP. The exact cause for this includes on top of chronic hypercapnic respiratory failure is not clear. Note that the patient has chronic pain issues. He typically hyperventilates. He also takes a combination of drugs including Dilaudid and oxycodone and Flexeril all potentially contributing to hypercapnia. He is on long-term and to coagulation with Eliquis. After being on BiPAP for around 2 hours, the patient became progressively more active and interactive. Currently is going all 4 extremities. A chest x-rays to follow. The patient was also given diuretics. Further recommendations are to follow based on the workup and the findings. He is currently postop day #4. He stated that his pain is under better control for now. His BiPAP setting is currently at 14/6 with a FiO2 of 35%. He is able to generate good tidal volumes. No significant tachypnea. He remains in atrial fibrillation for now. 09/30/2020 the patient is being seen for follow-up. He was taken off the BiPAP yesterday the patient did well on oxygen at 5 L. He did have a component of CO2 narcosis which improved. This was probably drug induced. He was briefly placed on BiPAP and he improved and subsequently he was placed back on oxygen is currently on 2 L of oxygen by nasal cannula. Overnight he still using the BiPAP. His pain is under good control with the use of Dilaudid. He has some movement and function of his lower extremities. He is not ambulating right now. No nausea. No vomiting. No diarrhea. No altered mentation. No chest pain. Noted the patient is postop day #5. Objective - Vital Signs Vital signs: Vital Signs Temp 97.4 F L 09/30/20 11:41 Pulse 92 09/30/20 11:41 Resp 20 09/30/20 11:41 BP 144/80 09/30/20 11:41 Pulse Ox 92 L 09/30/20 11:41 Intake & Output 09/29/20 09/30/20 09/30/20 18:59 06:59 18:59 Intake Total 900 2250 Output Total 3000 1245 760 Balance -2100 1005 -760 Intake: IV 900 900 Lactated Ringers 1,000 ml 900 900 @ 75 mls/hr IV .[id number] FITO Rx#:[id number] Intake, IV Titration 500 Amount Vancomycin 2,000 mg In 500 Sodium Chloride 0.9% 500 ml 500 ml @ 167 mls/hr IVPB Q16H FITO Rx#: [id number] Oral 850 Output: Drainage 70 60 Right Back 70 60 Urine 3000 1175 700 Other: Voiding Method Indwelling Catheter Indwelling Catheter # Bowel Movements 1 ABP, PAP, CO, CI - Last Documented Arterial Blood Pressure 162/72 - Exam GENERAL EXAM: Alert, pleasant 80-year-old gentleman, , the patient is currently on a BiPAP pressures of 14/6 with an FiO2 of 35%. Arousable, follows simple commands, awake, lethargic. The patient had a triple lumen catheter in his right IJ. HEAD: Normocephalic. EYES: Normal reaction of pupils, equal size. NOSE: Clear with pink turbinates. THROAT: No erythema or exudates. NECK: No masses, no JVD. CHEST: No chest wall deformity. LUNGS: Equal air entry with no crackles, wheeze, rhonchi or dullness. CVS: Controlled atrial fibrillation with irregular S1 and S2 normal with no audible murmur, regular rhythm. ABDOMEN: No hepatosplenomegaly, normal bowel sounds, no guarding or rigidity. SPINE: Recent surgery incisions clean dry well approximated SKIN: No rashes, surgical wound site over the back areas dry clean and intact. CENTRAL NERVOUS SYSTEM: the patient is currently sedated. EXTREMITIES: Some edema of the right knee. There is no peripheral edema. No clubbing, no cyanosis. Peripheral pulses are intact. - Labs CBC & Chem 7: 09/30/20 10:48 09/30/20 07:30 Labs: Abnormal Lab Results - Last 24 Hours (Table) 09/29/20 09/30/20 09/30/20 Range/Units 22:37 07:30 10:48 RBC 3.37 L (4.30-5.90) m/uL Hgb 10.8 L (13.0-17.5) gm/dL Hct 30.6 L (39.0-53.0) % Plt Count 133 L (150-450) k/uL Lymphocytes # 0.5 L (1.0-4.8) k/uL Potassium 3.4 L (3.5-5.1) mmol/L Chloride 97 L (98-107) mmol/L Carbon Dioxide 35 H (22-30) mmol/L Creatinine 0.60 L (0.66-1.25) mg/dL Glucose 132 H (74-99) mg/dL POC Glucose (mg/dL) 130 H (75-99) mg/dL Calcium 8.1 L (8.4-10.2) mg/dL Alkaline Phosphatase 174 H (38-126) U/L Total Protein 4.5 L (6.3-8.2) g/dL Albumin 2.3 L (3.5-5.0) g/dL Assessment and Plan Plan: 1 acute back pain secondary to [employer] [place] implant fracture T9 vertebral body, chance fracture T10 vertebral body, the patient is currently postop and the patient has undergone T6 through L1 spine decompression/fusion a month and the patient has Clemons rods. The patient is postop day #5 . The patient was extubated without any major difficulties and S2 to evaluate this patient for development of an acute on top of chronic hypercapnic failure. Currently his pain is under Control and the patient is being considered for rehabilitation at a later stage. 2 acute hypoxic respiratory failure, and an acute on top of chronic hypercapnic respiratory failure. Currently stable on 2 L about 2 by nasal cannula. Utilizing BiPAP overnight. 3 Metastatic 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 with subsequent radiation 4 Squamous cell carcinoma the lung, stage IV 5 Recent kyphoplasty for pathologic fracture of vertebral body T10 6 History of multiple pulmonary nodules present for greater than 5 years suspected old granulomatous disease versus sarcoid, no changes 7 History of chronic atrial fibrillation, status post permanent pacemaker implantation 8 Obesity hypoventilation syndrome/obstructive sleep apnea, on BiPAP in the outpatient setting 9 Hypertension 10 Morbid obesity 11 History of coronary artery disease with previous stent placement 12 Former smoker plan Continue BiPAP Eliquis anticoagulation IV fluids with lactated Ringer at kvo GI prophylaxis with IV Protonix Postoperative antibiotics with vancomycin, CAT scan of the thoracolumbar spine was noted and there are essentially showing postsurgical changes We'll continue to follow, no signs of any CO2 narcosis. Mentally he is alert and awake. His pain is under adequate control. Watch for any overmedication with narcotics and creating any form of hypoventilation and hypercapnic respiratory failure. Monitor mental status.
--- NOTE | 2020-09-30 17:20 | P.PN ---
Subjective Progress Note Date: 09/30/20 Principal diagnosis: Intractable low back pain 80-year-old pleasant male fairly functional before his severe back pain secondary to metastatic lung cancer. Patient is admitted secondary to fall found to have fracture of the T9 vertebral body. Orthotic surgery evaluation there are planning on stimulation his surgery for this vertebral body. Patient appears to have a pathological fracture patient is also found to have right knee strain without any fracture and knee effusion. Patient had multiple hospital physicians recently for severe back pain for which patient had a biopsy which showed metastatic metastatic non-small cell lung cancer for which patient is presently receiving radiation therapy patient had a recent kyphoplasty of pathological fracture of T10 vertebral body. Patient is a well-known and very pleasant gentleman does have some medical problems including obesity hypoventilation syndrome and sleep apnea. 09/21/2020 Patient is seen and evaluated in follow-up with no acute overnight issues. Does have his back brace on and is currently sitting up in the chair with family at the bedside. Patient is attempting for aggressive physical therapy and getting up and sitting in the chair at least 3 times per day. We are currently following along with orthopedic surgery and possible tentative surgery next Thursday if patient's progression with physical therapy does not help. Patient is attempting to avoid surgery if possible. 09/22/2020 Patient the started having pain again pain management is managing the patient patient was started back on fentanyl patch 09/23/2020 Patient's the pain is better. Patient had bowel movement today. 09/24/2020 Patient is seen and evaluated in follow-up and reports to having some increased back pain. Patient is tentatively scheduled for surgical intervention in the morning. Will hold Lovenox after today and patient will be nothing by mouth at midnight. Repeat labs today within normal limits. Patient denies any chest pain or palpitations. Patient is afebrile. 09/25/2020 Patient was seen and evaluated this morning prior to being taken for surgery this morning with no acute overnight issues. Lovenox was held and patient is nothing by mouth. Will await surgical report and repeat a.m. labs and continue to monitor closely. Patient will be returning to the ICU for close monitoring status post surgery. 09/26/2020 Patient is seen this morning currently remains in the ICU being closely monitored. Patient was extubated successfully and is following commands and alert and oriented. Patient does have pain and will continue with pain management medications. Patient is status post surgical intervention with Dr. Cee. Hemoglobin stable this morning at 11.2, white blood count 9.9, sodium 136, potassium 4.1, and creatinine 0.57. Continue with Accu-Cheks every 6 and diet will be resumed. Lovenox also being restarted. Blood pressure slightly elevated this morning prior to receiving Coreg and will be closely monitored in the ICU. 09/27/2020 Patient is seen in follow-up continues to be in the ICU awaiting for transition to [facility]. Patient is being closely monitored status post T6 through L1 spinal decompression and fusion surgery with Dr. Cee. Patient was started on IV ceftriaxone for the possibility of UTI although culture report finalized showing normal bay. Patient denies any dysuria or retention and currently has an indwelling Tran catheter status post surgery. Patient maintained on Lovenox although okay to resume Eliquis. Patient currently working with physical therapy and reapplying back brace at the side of the bed. Patient continues to be in pain and is maintained on pain medications per primary service. White blood count is normal at 7.4 hemoglobin is stable at 10.3, current sodium is 134 with a potassium of 3.9 and creatinine is 0.51. Blood sugars have been fairly well controlled not requiring any insulin and patient is maintained on Accu-Cheks. Patient is tolerating diet and being advanced as tolerated. Patient denies any chest pain or shortness of breath. Nursing staff working on weaning FiO2 and patient is currently maintained on 2 L at 96-100%. 09/28/2020 Patient is seen and evaluated in follow-up this morning on [facility] unit and has been transferred out of the ICU and is being closely monitored. Patient is having continued back pain this morning and has been standing at the bedside although not much walking. PT/OT following. CBC within normal limits will repeat a.m. labs and monitor closely. On 09/29/2020 -the nursing staff reported that the patient was confused and lethargic this morning. When I went into the room patient was confused, he knew his name but mentions that he does not feel good but he cannot explain to me what is going on. He was found to be tachypneic and tachycardic. Review of systems could not be done as the patient was confused. On looking at his vitals his T-max 98.2, heart rate 97, respiratory rate 25, shallow breathing, blood pressure 117 x 75 and saturating at 93% on 2 L of nasal cannula. On reviewing his labs white count of 5.9, hemoglobin 10.4, platelets 133. Sodium 143, potassium 3.8, chloride 105, bicarb 32, BUN 11, creatinine 0.6. On 09/30/2020 Patient is seen and examined at bedside. His mentation has improved a lot compared to yesterday. Patient was maintained on BiPAP last night and this morning he is transitioned to nasal cannula and is on 2 L of nasal cannula saturating at 93%. He still complains of ongoing low back pain. He mentions that he had a bowel movement last night and since then his abdominal pain has resolved. Patient denies having any chest pain or palpitations. Denies having any fevers chills or rigors. On reviewing the vitals temperature of 97.4, 92 heart rate, respiratory 20, blood pressure 144/80, saturating at 92% on 2 L of nasal cannula. On reviewing labs white count of 6.5, troponin 10.8, platelets 133. Sodium 137, but it 0.4, chloride 97, bicarb 35, BUN 13, creatinine 0.60 All medications have been reviewed. Objective - Vital Signs Vital signs: Vital Signs Temp 97.8 F 09/30/20 04:48 Pulse 101 H 09/30/20 04:48 Resp 26 H 09/30/20 04:48 BP 151/92 09/30/20 04:48 Pulse Ox 94 L 09/30/20 04:48 Intake & Output 09/29/20 09/30/20 09/30/20 18:59 06:59 18:59 Intake Total 900 2250 Output Total 3000 1245 Balance -2100 1005 Intake: IV 900 900 Lactated Ringers 1,000 ml 900 900 @ 75 mls/hr IV .[id number] FITO Rx#:[id number] Intake, IV Titration 500 Amount Vancomycin 2,000 mg In 500 Sodium Chloride 0.9% 500 ml 500 ml @ 167 mls/hr IVPB Q16H FITO Rx#: [id number] Oral 850 Output: Drainage 70 Right Back 70 Urine 3000 1175 Other: Voiding Method Indwelling Catheter # Bowel Movements 1 ABP, PAP, CO, CI - Last Documented Arterial Blood Pressure 162/72 - Exam GENERAL: The patient is alert and oriented x 3, no acute distress. Lying in bed and stating that he has low back pain HEENT: Pupils are round and equally reacting to light. EOMI. No scleral icterus. No conjunctival pallor. CARDIOVASCULAR: S1 and S2 present. Tachycardia PULMONARY: Diminishes Breath sounds in all lung devries . ABDOMEN: Soft, nontender, nondistended, hypoactive bowel sounds. MUSCULOSKELETAL: Right leg in a stabilizer EXTREMITIES: No cyanosis, clubbing, or pedal edema. NEUROLOGICAL: Moving all 4 extremities . Diffuse weakness . - Labs CBC & Chem 7: 09/30/20 10:48 09/30/20 07:30 Labs: Abnormal Lab Results - Last 24 Hours (Table) 09/29/20 09/29/20 09/29/20 Range/Units 05:17 05:17 12:36 RBC 3.31 L (4.30-5.90) m/uL Hgb 10.4 L (13.0-17.5) gm/dL Hct 30.8 L (39.0-53.0) % Plt Count 133 L (150-450) k/uL Lymphocytes # 0.3 L (1.0-4.8) k/uL ABG pH 7.28 L (7.35-7.45) ABG pCO2 77 H* (35-45) mmHg ABG pO2 55 L* (83-108) mmHg ABG HCO3 36 H (21-25) mmol/L ABG Total CO2 39 H (19-24) mmol/L ABG O2 Saturation 87.7 L (94-97) % Potassium (3.5-5.1) mmol/L Chloride (98-107) mmol/L Carbon Dioxide 31 H (22-30) mmol/L Creatinine 0.64 L (0.66-1.25) mg/dL Glucose 129 H (74-99) mg/dL POC Glucose (mg/dL) (75-99) mg/dL Calcium (8.4-10.2) mg/dL Alkaline Phosphatase 150 H (38-126) U/L Total Protein 4.5 L (6.3-8.2) g/dL Albumin 2.2 L (3.5-5.0) g/dL 03/27/21 03/28/21 Range/Units 22:37 07:30 RBC (4.30-5.90) m/uL Hgb (13.0-17.5) gm/dL Hct (39.0-53.0) % Plt Count (150-450) k/uL Lymphocytes # (1.0-4.8) k/uL ABG pH (7.35-7.45) ABG pCO2 (35-45) mmHg ABG pO2 (83-108) mmHg ABG HCO3 (21-25) mmol/L ABG Total CO2 (19-24) mmol/L ABG O2 Saturation (94-97) % Potassium 3.4 L (3.5-5.1) mmol/L Chloride 97 L (98-107) mmol/L Carbon Dioxide 35 H (22-30) mmol/L Creatinine 0.60 L (0.66-1.25) mg/dL Glucose 132 H (74-99) mg/dL POC Glucose (mg/dL) 130 H (75-99) mg/dL Calcium 8.1 L (8.4-10.2) mg/dL Alkaline Phosphatase 174 H (38-126) U/L Total Protein 4.5 L (6.3-8.2) g/dL Albumin 2.3 L (3.5-5.0) g/dL Assessment and Plan Assessment: ASSESSMENT Acute encephalopathy - multifactorial Acute hypoxic respiratory failure Chronic hypercapnic respiratory failure Obesity Hypoventilation syndrome -T9 vertebral body fracture: Patient is status post surgical intervention with orthopedic surgery postop day # 5 -Right knee strain without any fracture, using immobilizer while out of bed -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 fib patient is presently rate and rate controlled patient does have a pacemaker. Patient is on Eliquis which can be resumed -Hypertension -Obesity -Coronary artery disease PLAN: Patient was placed on BiPAP last night and change to nasal cannula and saturating around 93% on 2 L of oxygen. His mentation showed significant improvement. He is on vancomycin, postoperative antibiotics. He is on Eliquis for anticoagulation. Protonix for GI prophylaxis. Overall prognosis is guarded due to chronic medical conditions including end-stage metastatic lung cancer. Further recommendations to follow depending on the progress of the patient.
[2020-09-30] MEDS: POTASSIUM CHLORIDE ER 20 MEQ TAB.ER PO SCH (21:17)
[2020-10-01] MEDS: LACTATED RINGERS 1,000 ML IV SCH ×2 (03:05→09:25)
[2020-10-01] MEDS: POTASSIUM CHLORIDE ER 20 MEQ TAB.ER PO SCH ×3 (03:07→12:37)
[2020-10-01] MEDS ORDERED: VANCOMYCIN TROUGH DUE 1 EACH MISC MISCELLANE ONE (05:00)
[2020-10-01] MEDS: ONDANSETRON 4 MG/2 ML VIAL IVP PRN (05:52)
[2020-10-01] MEDS: VANCOMYCIN 2,000 MG in SODIUM CHLORIDE 0.9% 500 ML 500 ML IVPB SCH (05:52)
[2020-10-01] MEDS: GABAPENTIN 300 MG CAP PO SCH ×3 (08:48→20:47)
[2020-10-01] MEDS: HYDROmorphone 0.5 MG/0.5 ML SYRINGE IVP PRN ×2 (08:48→22:28)
[2020-10-01] MEDS: PANTOPRAZOLE 40 MG/10 ML VIAL IV SCH (08:48)
[2020-10-01] MEDS: SENNOSIDES 8.6 MG TAB PO SCH ×2 (08:48→20:47)
[2020-10-01] MEDS: amLODIPine 5 MG TAB PO SCH (08:49)
[2020-10-01] MEDS: carvediloL 3.125 MG TAB PO SCH ×2 (08:49→17:47)
[2020-10-01 09:15] LABS: African American GFR (CKD) 120.3 (60.0-200.0); Anion Gap 7.3 mmol/L (4.00-12.00); Carbon Dioxide 35.7 mmol/L (21.6-31.8); Non-African American GFR(CKD) 103.8 (60.0-200.0); Potassium 3.3 mmol/L (3.5-5.5)
[2020-10-01] MEDS: HYDROmorphone 1 MG/ML 1 ML SYRINGE IVP PRN ×2 (10:59→14:34)
[2020-10-01] MEDS ORDERED: RX INFO: IV CONTRAST WAS GIVEN 1 EACH MISC MISCELLANE PRN (12:21)
[2020-10-01 13:19] VITALS: BMI 39.6
--- NOTE | 2020-10-01 13:23 | CT ---
EXAMINATION TYPE: CT brain w con DATE OF EXAM: 10/01/2020 COMPARISON: 09/18/2020 HISTORY: mets CT DLP: 1180.9 mGycm Automated exposure control for dose reduction was used. CONTRAST: CT scan of the head is performed with IV Contrast, patient injected with 100 mL of Isovue 300. FINDINGS: There is no abnormal enhancing mass or midline shift identified. The ventricles and sulci are mildly enlarged. The globes are intact and the visualized sinuses are clear. IMPRESSION: No evidence for enhancing lesion identified at this time.
--- NOTE | 2020-10-01 14:37 | P.PN ---
Subjective Progress Note Date: 10/01/20 Pt s/e this AM with at bedside. He has been up 3x with PT. He has some pain but it is controlled currently. states a difficult weekend and was not up much. He was somewhat "out of it" for the weekend and seems to be worse with the pain medications but he has been using less and less dilaudid as of late. Denies any f/c/sob/cp at this time. Denies any perineal numbness/tingling. Tran was replaced over the weekend for some retention, likely POUR secondary to his sendentary state. Objective - Vital Signs Vital signs: Vital Signs Temp 97.8 F 10/01/20 12:34 Pulse 88 10/01/20 12:34 Resp 17 10/01/20 12:34 BP 138/74 10/01/20 12:34 Pulse Ox 94 L 10/01/20 12:34 Intake & Output 09/30/20 10/01/20 10/01/20 18:59 06:59 18:59 Intake Total 1300 Output Total 800 900 100 Balance 500 -900 -100 Weight 129 kg Intake: IV 600 Lactated Ringers 1,000 ml 600 @ 75 mls/hr IV .[id number] FITO Rx#:[id number] Intake, IV Titration 500 Amount Vancomycin 2,000 mg In 500 Sodium Chloride 0.9% 500 ml 500 ml @ 167 mls/hr IVPB Q16H FITO Rx#: [id number] Oral 200 Output: Drainage 100 100 Right Back 100 100 Urine 700 900 Other: Voiding Method Indwelling Catheter Indwelling Catheter Indwelling Catheter # Bowel Movements 1 1 ABP, PAP, CO, CI - Last Documented Arterial Blood Pressure 162/72 - Exam exam stable today PHYSICAL EXAMINATION: Vitals: Stable at this time General: Awake, alert, appropriate for age, in no acute distress. HEENT: No unusual neck masses around region of lateral neck triangle, thyroid, supraclavicular groove. Heart: Regular rate and rhythm, normal S1, S2 and no murmur/gallop. Lungs: Clear to auscultation bilaterally with no use of accessory muscles. Extremities: Skin warm and dry without no acute lesions, coloration, temperature, skin intact, no tenderness or erythema. Integument: Hairy patches: Absent Dorsal skin dimples: Absent Cafe au lait spots: Absent Surgical incisions: Incision is CDI. Drain pulled today. No drainage, purulence, EEE of the incision which is healing well. Palpation: Please see Pain drawing on Intake sheet for further detail. (Tenderness = T, Nontender = NT, Swelling = S, Ecchymosis = E) Findings on Midline and paraspinal palpation and percussion: Cervical: NT Thoracic: Tenderness to palpation or ballottement midline and paraspinal Lumbar: Tennis to palpation in the upper portion however not in the lower portion at this time Sacral: NT Special findings: None Vital extremity exam is stable right knee exam is stable VASCULAR STATUS : Wrist Pulses: 2/4 bilateral radial and ulnar Pedal Pulses: 2/4 bilateral DP and PT Color: Normal with some redness Edema: BL LE, 1+ pitting NEUROLOGIC EXAMINATION: Mental Status: Awake and alert, fully oriented, with normal attention, concentration and memory, and fluent, appropriate speech. Cranial Nerves: I: Olfactory not tested. II: Visual acuity normal, no visual field deficit noted with confrontation. III,IV: Normal pupillary reflexes & intact extraocular movements without nystagmus. V,: Intact symmetrical facial sensation. VII: Intact symmetrical facial motor movement VIII: Hearing intact. IX,X: Intact gag, swallow, & normal voice. XI: Sternocleidomastoid, trapezius function intact. XII: Tongue midline with normal movements. Special Tests: L'hermitte's Sign: Absent Spurling'Sign: Absent Bilateral Cubital percussion test: Absent Bilateral Jossue-Tinel sign - Carpal region: Absent Bilateral Straight Leg Raising: Absent Bilateral Motor Exam (0-5/5, N/T) STRENGTH UPPER EXTREMITY Shoulder Abd (Not part of [place] Motor score): RIGHT 5 LEFT 5 Elbow Flexors: RIGHT 5 LEFT 5 Elbow Extensor: RIGHT 5 LEFT 5 Wrrist Dorsiflexors: RIGHT 5 LEFT 5 Finger Abductor: RIGHT 5 LEFT 5 Sap Pi Architect: RIGHT 5 LEFT 5 LOWER EXTREMITY Hip Flexor (Not part of [place] Motor Score): RIGHT 4+ LEFT 5 Knee Flexor: RIGHT 4+ LEFT 5 Knee Extensor: RIGHT 4+ LEFT 5 Ankle Dorsiflexion: RIGHT 5 LEFT 5 Ankle Plantarflexion: RIGHT 5 LEFT 5 EHL: RIGHT 4+ LEFT 5 FHL: RIGHT 5 LEFT 5 REFLEXES Biecp: RIGHT 2 LEFT 2 Tricep: RIGHT 2 LEFT 2 Brachioradialis: RIGHT 2 LEFT 2 Patellar: RIGHT 2 LEFT 2 Achilles: RIGHT 2 LEFT 2 Pathological Reflexes Santamaria's: RIGHT Absent LEFT Absent Babinski: RIGHT Absent LEFT Absent Clonus: RIGHT None LEFT None SENSORY Joint Position: Intact bilaterally Vibration Intact bilaterally Pain and LT sense Intact C5-T1 and L2-S1 Dermatomal deficit None Gait and Functional Evaluation: Ambulatory aids: Walker and TLSO Hand and finger dexterity intact bilaterally. Disdiadochokinesis examination negative bilaterally. - Labs CBC & Chem 7: 09/30/20 10:48 10/01/20 05:54 Labs: Abnormal Lab Results - Last 24 Hours (Table) 10/01/20 Range/Units 05:54 Potassium 3.3 L (3.5-5.5) mmol/L Chloride 95 L (96-109) mmol/L Carbon Dioxide 35.7 H (21.6-31.8) mmol/L Creatinine 0.5 L (0.6-1.5) mg/dL Glucose 114 H (70-110) mg/dL Calcium 8.0 L (8.7-10.3) mg/dL Assessment and Plan Assessment: 80 yo male POD#6 T6-L1 fixation for T9-10 unstable B1 fractures. 1. T9 and T10 acute split-type fractures, chance-type fractures no posterior column involvement evident, MRI not possible secondary to stents and pacemaker. Continued pain despite conservative management physical therapy and bracing medications. Increasing need for narcotic medications 2. Status post T10 kyphoplasty 3. Status post fall from standing 4. Lung carcinoma with metastasis status post radiation 5. Complex medical patient with significant cardiovascular respiratory history, morbid obesity Plan: -Appreciate medicine management. -Pain control: At this time. Would consider decreasing pain medications in going on more of a Percocet or [place] instead of Dilaudid every 2-3 hours. Consider decreasing or getting out of the ox he ER. -Aggressive ambulation protocol. OOB with all meals. OOB or in chair 4-5x daily. -PT/OT -TEDs, SCDs, mechanical ppx. OK for heparin today. Early ambulation is best. -GI ppx. -[No further imaging needed at this time] -Trend labs. -Dispo: Pending MIKE or ECF placement
--- NOTE | 2020-10-01 16:03 | P.PN ---
Subjective Progress Note Date: 10/01/20 - Reason for Consult Metastatic lung cancer, preoperative clearance - History of Present Illness 80-year-old pleasant male fairly functional before his severe back pain secondary to metastatic lung cancer. Patient is admitted secondary to fall found to have fracture of the T9 vertebral body. Orthotic surgery evaluation there are planning on stimulation his surgery for this vertebral body. Patient appears to have a pathological fracture patient is also found to have right knee strain without any fracture and knee effusion. Patient had multiple hospital physicians recently for severe back pain for which patient had a biopsy which showed metastatic metastatic non-small cell lung cancer for which patient is presently receiving radiation therapy patient had a recent kyphoplasty of pathological fracture of T10 vertebral body. Patient is a well-known and very pleasant gentleman does have some medical problems including obesity hypoventilation syndrome and sleep apnea. 09/21/2020 Patient is seen and evaluated in follow-up with no acute overnight issues. Does have his back brace on and is currently sitting up in the chair with family at the bedside. Patient is attempting for aggressive physical therapy and getting up and sitting in the chair at least 3 times per day. We are currently following along with orthopedic surgery and possible tentative surgery next Thursday if patient's progression with physical therapy does not help. Patient is attempting to avoid surgery if possible. 09/22/2020 Patient the started having pain again pain management is managing the patient patient was started back on fentanyl patch 09/23/2020 Patient's the pain is better. Patient had bowel movement today. 09/24/2020 Patient is seen and evaluated in follow-up and reports to having some increased back pain. Patient is tentatively scheduled for surgical intervention in the morning. Will hold Lovenox after today and patient will be nothing by mouth at midnight. Repeat labs today within normal limits. Patient denies any chest pain or palpitations. Patient is afebrile. 09/25/2020 Patient was seen and evaluated this morning prior to being taken for surgery this morning with no acute overnight issues. Lovenox was held and patient is nothing by mouth. Will await surgical report and repeat a.m. labs and continue to monitor closely. Patient will be returning to the ICU for close monitoring status post surgery. 09/26/2020 Patient is seen this morning currently remains in the ICU being closely monitored. Patient was extubated successfully and is following commands and alert and oriented. Patient does have pain and will continue with pain management medications. Patient is status post surgical intervention with Dr. Cee. Hemoglobin stable this morning at 11.2, white blood count 9.9, sodium 136, potassium 4.1, and creatinine 0.57. Continue with Accu-Cheks every 6 and diet will be resumed. Lovenox also being restarted. Blood pressure slightly elevated this morning prior to receiving Coreg and will be closely monitored in the ICU. 09/27/2020 Patient is seen in follow-up continues to be in the ICU awaiting for transition to [facility]. Patient is being closely monitored status post T6 through L1 spinal decompression and fusion surgery with Dr. Cee. Patient was started on IV ceftriaxone for the possibility of UTI although culture report finalized showing normal bay. Patient denies any dysuria or retention and currently has an indwelling Tran catheter status post surgery. Patient maintained on Lovenox although okay to resume Eliquis. Patient currently working with physical therapy and reapplying back brace at the side of the bed. Patient continues to be in pain and is maintained on pain medications per primary service. White blood count is normal at 7.4 hemoglobin is stable at 10.3, current sodium is 134 with a potassium of 3.9 and creatinine is 0.51. Blood sugars have been fairly well controlled not requiring any insulin and patient is maintained on Accu- Cheks. Patient is tolerating diet and being advanced as tolerated. Patient denies any chest pain or shortness of breath. Nursing staff working on weaning FiO2 and patient is currently maintained on 2 L at 96-100%. 09/28/2020 Patient is seen and evaluated in follow-up this morning on [facility] unit and has been transferred out of the ICU and is being closely monitored. Patient is having continued back pain this morning and has been standing at the bedside although not much walking. PT/OT following. CBC within normal limits will repeat a.m. labs and monitor closely. On 09/29/2020 -the nursing staff reported that the patient was confused and lethargic this morning. When I went into the room patient was confused, he knew his name but mentions that he does not feel good but he cannot explain to me what is going on. He was found to be tachypneic and tachycardic. Review of systems could not be done as the patient was confused. On looking at his vitals his T-max 98.2, heart rate 97, respiratory rate 25, shallow breathing, blood pressure 117 x 75 and saturating at 93% on 2 L of nasal cannula. On reviewing his labs white count of 5.9, hemoglobin 10.4, platelets 133. Sodium 143, potassium 3.8, chloride 105, bicarb 32, BUN 11, creatinine 0.6. On 09/30/2020 Patient is seen and examined at bedside. His mentation has improved a lot compared to yesterday. Patient was maintained on BiPAP last night and this morning he is transitioned to nasal cannula and is on 2 L of nasal cannula saturating at 93%. He still complains of ongoing low back pain. He mentions that he had a bowel movement last night and since then his abdominal pain has resolved. Patient denies having any chest pain or palpitations. Denies having any fevers chills or rigors. On reviewing the vitals temperature of 97.4, 92 heart rate, respiratory 20, blood pressure 144/80, saturating at 92% on 2 L of nasal cannula. On reviewing labs white count of 6.5, troponin 10.8, platelets 133. Sodium 137, but it 0.4, chloride 97, bicarb 35, BUN 13, creatinine 0.60 10/01/2020 Patient is seen and evaluated this morning with no acute overnight issues. Patient is maintained on 2 L of oxygen via nasal cannula and has been using CPAP at night. Patient is alert and oriented 3 and has continued pain in his back. Patient currently attempting to move up in the bed although is having difficulty pulling his weight up and also difficulty with flexing and bending his bilateral lower extremities to assist with the push. Patient continues to be extremely weak and is being seen and evaluated by PT/OT therapy. Potassium 3.3 today and being replaced and will repeat a.m. labs. Other labs within normal limits. Social work following this patient may benefit from rehab and are requesting inpatient rehab only otherwise states she will take him home. Review of systems: Constitutional: No reports of fatigue, fever, or chills Cardiovascular: No reports of chest pain or palpitations Respiratory: No reports of shortness of breath or cough GI: No reports of nausea, vomiting, or diarrhea : No reports of dysuria or retention Neurovascular: reports generalized weakness and continued back pain All medications have been reviewed Objective - Vital Signs Vital signs: Vital Signs Temp 97.6 F 10/01/20 05:00 Pulse 82 10/01/20 05:00 Resp 25 H 10/01/20 05:00 BP 126/85 10/01/20 05:00 Pulse Ox 96 10/01/20 05:00 Intake & Output 09/30/20 10/01/20 10/01/20 18:59 06:59 18:59 Intake Total 1300 Output Total 800 900 60 Balance 500 -900 -60 Intake: IV 600 Lactated Ringers 1,000 ml 600 @ 75 mls/hr IV .[id number] FITO Rx#:[id number] Intake, IV Titration 500 Amount Vancomycin 2,000 mg In 500 Sodium Chloride 0.9% 500 ml 500 ml @ 167 mls/hr IVPB Q16H FITO Rx#: [id number] Oral 200 Output: Drainage 100 60 Right Back 100 60 Urine 700 900 Other: Voiding Method Indwelling Catheter Indwelling Catheter # Bowel Movements 1 1 ABP, PAP, CO, CI - Last Documented Arterial Blood Pressure 162/72 - Exam GENERAL: The patient is alert and oriented x3, not in any acute distress. Well developed, well nourished. Currently on 2 L of oxygen via nasal cannula and discuss with nursing staff about weaning as tolerated HEENT: Pupils are round and equally reacting to light. EOMI. No scleral icterus. No conjunctival pallor. Normocephalic, atraumatic. No pharyngeal erythema. No thyromegaly. CARDIOVASCULAR: S1 and S2 present. No murmurs, rubs, or gallops. PULMONARY: Chest is clear to auscultation, no wheezing or crackles. ABDOMEN: Soft, nontender, nondistended, normoactive bowel sounds. No palpable organomegaly. MUSCULOSKELETAL: Deferred to orthopedic surgery EXTREMITIES: No cyanosis, clubbing, or pedal edema. NEUROLOGICAL: Gross neurological examination did not reveal any focal deficits. Diffuse weakness SKIN: No rashes. - Labs CBC & Chem 7: 09/30/20 10:48 10/01/20 05:54 Labs: Abnormal Lab Results - Last 24 Hours (Table) 09/30/20 10/01/20 Range/Units 10:48 05:54 RBC 3.37 L (4.30-5.90) m/uL Hgb 10.8 L (13.0-17.5) gm/dL Hct 30.6 L (39.0-53.0) % Plt Count 133 L (150-450) k/uL Lymphocytes # 0.5 L (1.0-4.8) k/uL Potassium 3.3 L (3.5-5.5) mmol/L Chloride 95 L (96-109) mmol/L Carbon Dioxide 35.7 H (21.6-31.8) mmol/L Creatinine 0.5 L (0.6-1.5) mg/dL Glucose 114 H (70-110) mg/dL Calcium 8.0 L (8.7-10.3) mg/dL Assessment and Plan Assessment: -Acute encephalopathy - multifactorial -Acute hypoxic respiratory failure -Chronic hypercapnic respiratory failure -Obesity Hypoventilation syndrome -T9 vertebral body fracture: Patient is status post surgical intervention with orthopedic surgery postop day # 6 -Right knee strain without any fracture, using immobilizer while out of bed -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 fib patient is presently rate and rate controlled patient does have a pacemaker. Patient is on Eliquis which has been resumed -Hypertension -Obesity -Coronary artery disease PLAN: Patient was placed on BiPAP last night and change to nasal cannula and saturating around 93% on 2 L of oxygen. Patient is alert and oriented 3. Maintained on vancomycin, postoperative antibiotics. He is on Eliquis for anticoagulation. Protonix for GI prophylaxis. Overall prognosis is guarded due to chronic medical conditions including end-stage metastatic lung cancer. Social work following and a consult was placed for [facility] inpatient rehab evaluation otherwise family states they will be taking him home once stabilized and discharged. Patient continues to be extremely weak requiring almost total assist. Further recommendations to follow depending on the progress of the patient.
[2020-10-01] MEDS: oxyCODONE ER 20 MG TAB.ER.12H PO PRN (17:47)
[2020-10-01] MEDS ORDERED: POTASSIUM CHLORIDE ER 20 MEQ TAB.ER PO SCH (18:00)
[2020-10-01] MEDS: APIXABAN 5 MG TAB PO SCH (20:47)
--- NOTE | 2020-10-01 21:22 | P.PN ---
Subjective Progress Note Date: 10/01/20 Principal diagnosis: Metastatic Cancer Patient is doing better today, at bedside. His original pathology did show PDL1 90%, with this being his initial recurrence and progression, if his performance continues to improve he maybe eligible for palliative treatment. WIll ask PT/OT to continue working with him Objective - Vital Signs Vital signs: Vital Signs Temp 97.8 F 10/01/20 12:34 Pulse 88 10/01/20 12:34 Resp 17 10/01/20 12:34 BP 138/74 10/01/20 12:34 Pulse Ox 94 L 10/01/20 12:34 Intake & Output 10/01/20 10/01/20 10/02/20 06:59 18:59 06:59 Output Total 900 1300 Balance -900 -1300 Weight 129 kg Output: Drainage 100 Right Back 100 Urine 900 1200 Other: Voiding Method Indwelling Catheter Indwelling Catheter # Bowel Movements 1 ABP, PAP, CO, CI - Last Documented Arterial Blood Pressure 162/72 - Exam - Constitutional General appearance: cooperative, no acute distress - EENT Eyes: EOMI, PERRLA ENT: hard of hearing, NA/AT - Neck Neck: normal ROM - Respiratory Respiratory: bilateral: diminished - Cardiovascular Rhythm: regular leg Peripheral Edema: bilateral: 2+ LUE Edema - Gastrointestinal General gastrointestinal: soft - Integumentary Integumentary: pale - Neurologic RYAN due to pain - Musculoskeletal Musculoskeletal: generalized weakness - Psychiatric Psychiatric: A&O x's 3 - Labs CBC & Chem 7: 09/30/20 10:48 10/01/20 16:01 Labs: Abnormal Lab Results - Last 24 Hours (Table) 10/01/20 Range/Units 05:54 Potassium 3.3 L (3.5-5.5) mmol/L Chloride 95 L (96-109) mmol/L Carbon Dioxide 35.7 H (21.6-31.8) mmol/L Creatinine 0.5 L (0.6-1.5) mg/dL Glucose 114 H (70-110) mg/dL Calcium 8.0 L (8.7-10.3) mg/dL Assessment and Plan Plan: Assessment and Recommendations: Recurrent Non-Small Cell Lung Ca: With recent progression to bone/spine - Status post radiation therapy positive bone biopsy T10 NSCLCA poorly d ifferentiated - Will send path for molecular NGS, prior lung biopsy was PDL1 - 90% Recent Fall with Multiple pathological fractures: - T9 and T10 Fractures, unable to perform MRI due to stents and pacer - Status Post surgical intervention with orthospine - At this time no improvements planning on intervention today Neoplastic related pain: - Continue current regimen Continue support care. Treatment plan to be consisdered following increased performance and discharge from hospitalization PLan: - COntinue with Therapy and supportive care - COntinued improved performance and oxygenation will determine options of pallaitve treatment, immmune therapy. Discussed with patient and . They understand the current situation is not curable at this time, however palliaitive treatment maybe consisdered considering he is improving overall performance.
[2020-10-02] MEDS: VANCOMYCIN 1,750 MG in SODIUM CHLORIDE 0.9% 500 ML 500 ML IVPB SCH ×2 (00:06→16:53)
[2020-10-02] MEDS: LACTATED RINGERS 1,000 ML IV SCH ×2 (00:09→13:37)
--- NOTE | 2020-10-02 06:07 | P.CONS ---
History of Present Illness - Chief Complaint Medical debility - History of Present Illness I had the opportunity to see patient for inpatient rehab consultation with regard to medical debility. He is admitted to [facility] September 18 with history of previous back T10 kyphoplasty Dr. Peters. Patient apparently fell exacerbated of back up. Workup revealed compressions T9 and T10. Patient seen by pulmonary a nd Dr. Charlie Lora first known squamous cell. Seen by Dr. Maldonado for medical. Seen by cardiology. Chest x-rays followed and demonstrated increased left side opacities. Abdominal x-ray negative. Head CT negative for lesion. Patient did undergo T6-L1 fusion. She has started therapies. PT reports maximal assistance for bed mobility and poor endurance. OT reports two-person maximal assistance for upper dressing, bathing, functional mobility and transfers. Two-person total assistance for lower dressing and toileting. Previous functional history as elicited from patient: 80-year-old right-handed white male who is lives and 2 floor home with . generally does the cooking. Patient describes that he does the laundry, driving, shower. Review of Systems Review of systems: ENT: Denies sneezes or discharge. Eyes: Denies discharge or photophobia. Cardiac: Denies chest pain or palpitation. Pulmonary: Mild shortness of breath. Wearing CPAP. Gastrointestinal: Denies nausea, emesis, constipation, diarrhea. Genitourinary: Denies discharge or frequency. Musculoskeletal: Back discomfort. Neurologic: Generalized weakness. Endocrine: Denies shakes or sweats. Oncology: Denies cancers. Dermatologic: Denies rash, itching, pruritus. ALLERGY/immunology: Denies sneezes, rashes. Past Medical History Past Medical History: Atrial Fibrillation, Coronary Artery Disease (CAD), Cancer, Heart Failure, Hypertension, Myocardial Infarction (MA), Osteoarthritis (OA), Prostate Disorder, Respiratory Disorder Additional Past Medical History / Comment(s): Pt recently admtiited to [facility] on 08/22/20 with intractable low back pain with kyphoplasty T10 with biopsy (pt has not been given results/abnormal cat scan and pt told possible mets to bone. Pt recently in [facility] ER on 09/03/20 with constipation/colitis. 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 Last Myocardial Infarction Date:: mar 2018 History of Any Multi-Drug Resistant Organisms: None Reported Past Surgical History: Back Surgery, Heart Catheterization With Stent, Joint Replacement, Orthopedic Surgery, Pacemaker Additional Past Surgical History / Comment(s): 08/2019 kyphoplasty/bx T10, 09/2019 bronch with bx/brushings/BAL, 2017 pacemaker, bilateral knee arthroscopies, bilateral total knee replacements, R knee surgery for patellar tendon tear, PCI with stents, colonoscopy, bilateral cataract removals. Past Anesthesia/Blood Transfusion Reactions: Motion Sickness Date of Last Stent Placement:: 03/23 Type of Cardiac Device: Permanent Pacemaker Device Placement Date:: 02/20 Past Psychological History: No Psychological Hx Reported Additional Psychological History / Comment(s): Pt resides with his spouse. He has a rollator walker which he is not using. Does use a cane prn. He has a bipap. Pt drives. Smoking Status: Former smoker Past Alcohol Use History: Rare Additional Past Alcohol Use History / Comment(s): Pt started smoking in 3 and quit in 1977 Past Drug Use History: None Reported - Past Family History Sister(s) Family Medical History: Cancer Brother(s) Family Medical History: Cancer Additional Family Medical History / Comment(s): 3 brothers cancer Father Family Medical History: Coronary Artery Disease (CAD), CVA/TIA, Myocardial Infarction (MA) Additional Family Medical History / Comment(s): Father had TIAs and MIs. He between the ages of 62-68yrs from what pt believes was a MA Mother Family Medical History: Myocardial Infarction (MA) Additional Family Medical History / Comment(s): Mother of a MA at the age of 88yrs. Medications and Allergies Home Medications Medication Instructions Recorded Confirmed Type Aspirin 81 mg PO Q48H 11/27/16 09/18/20 History Multivitamins, Thera [Multivitamin 1 tab PO DAILY 11/27/16 09/18/20 History (formulary)] Furosemide [Lasix] 20 mg PO DAILY 02/19/18 09/18/20 History Tamsulosin [Flomax] 0.4 mg PO DAILY 02/19/18 09/18/20 History Spironolactone 25 mg PO DIRECTED 09/08/19 09/18/20 History Apixaban [Eliquis] 5 mg PO BID 08/22/20 09/18/20 History Cyclobenzaprine [Flexeril] 10 mg PO BID PRN 08/22/20 09/18/20 History carvediloL [Coreg] 3.125 mg PO BID 08/22/20 09/18/20 History Lactulose [Constulose] 10 gm PO DAILY PRN 09/05/20 09/18/20 History oxyCODONE ER [OxyCONTIN] 20 mg PO Q12HR 3 Days #6 tab 09/10/20 09/18/20 Rx ALPRAZolam [Xanax] 0.25 mg PO TID PRN #10 tab 09/12/20 09/18/20 Rx Magnesium Hydroxide [Milk of 2,400 mg PO BID PRN #360 ml 09/12/20 09/18/20 Rx Magnesia Concentrate] Pantoprazole [Protonix] 40 mg PO AC-BRKFST 30 Days #30 09/12/20 09/18/20 Rx tablet.dr Dalton [Senokot] 17.2 mg PO BID 30 Days #120 tab 09/12/20 09/18/20 Rx polyethylene glycoL 3350 [Miralax] 17 gm PO DAILY 30 Days #30 09/12/20 09/18/20 Rx powd.pack Dexamethasone [Decadron] See Taper PO DIRECTED 09/18/20 09/18/20 History Allergies Allergy/AdvReac Type Severity Reaction Status Date / Time hydrocodone [From Vicodin] AdvReac Hallucinati Verified 09/18/20 13:21 ons Ltlucpy-[id number]-Utk Reductase AdvReac MUSCLE PAIN Verified 09/18/20 13:21 Inhibitor Physical Exam Vitals: Vital Signs Temp Pulse Pulse Pulse Resp BP BP 10/01/20 21:00 99.4 F 96 20 146/74 10/01/20 20:00 89 96 101 H 20 10/01/20 12:34 97.8 F 88 17 138/74 Pulse Ox 10/01/20 21:00 92 L 10/01/20 20:00 10/01/20 12:34 94 L Intake and Output 10/01/20 10/01/20 10/02/20 14:59 22:59 06:59 Intake Total 200 Output Total 100 1200 Balance -100 -1000 Intake: Oral 200 Output: Drainage 100 Right Back 100 Urine 1200 Other: Voiding Method Indwelling Catheter Indwelling Catheter Weight 129 kg Skin: Atrophic, intact. General: Overweight build and at least mildly uncomfortable appearance. Head: Normocephalic, atraumatic. Eyes: Symmetric. Pupils equal round. Ears: Symmetric. Hearing within normal limits. Mouth: Clear. Neck: Supple. Carotid without bruit. Cardiac: Regular rate and rhythm. Lungs: Clear anteriorly and posteriorly. Abdomen: Soft active nontender. Extremities: Normal tone. Wearing boots in bed. Neurological: Mental status: Alert, cooperative, pleasant. Cranial nerves: Symmetric facial tone and trapezius. Motor: Active movement all 4 limbs but arms are at best antigravity in legs are definitely less than antigravity. Sensation: Intact throughout. DTRs: Symmetric and equal throughout. Mobility: Requires physical assist for bed mobility. Results CBC & Chem 7: 09/30/20 10:48 10/01/20 16:01 Labs: Abnormal Lab Results - Last 24 Hours (Table) 10/01/20 Range/Units 05:54 Potassium 3.3 L (3.5-5.5) mmol/L Chloride 95 L (96-109) mmol/L Carbon Dioxide 35.7 H (21.6-31.8) mmol/L Creatinine 0.5 L (0.6-1.5) mg/dL Glucose 114 H (70-110) mg/dL Calcium 8.0 L (8.7-10.3) mg/dL Assessment and Plan (1) Thoracic vertebral fracture Current Visit: Yes Status: Acute Code(s): S22.009A - UNSP FRACTURE OF UNSP THORACIC VERTEBRA, INIT FOR CLOS FX SNOMED Code(s): 839268777 Plan: Impression: 1. Medical debility. 2. Thoracic compression fracture status post T6-L1 fusion. 3. Squamous cell cancer lung. 4. Coronary disease history MA. 5. Hypertension. 6. Osteoarthritis. 7. Atrial fibrillation. Constant plan: At this time PT and OT are ongoing. Patient demonstrated poor endurance and poor ability to tolerate from therapy. Patient currently would not be able tolerate a full inpatient rehab program. Would recommend slower paced program such as SNF.
[2020-10-02 06:25] LABS: Potassium 3.9 mmol/L (3.5-5.1)
[2020-10-02] MEDS: APIXABAN 5 MG TAB PO SCH ×2 (09:55→21:11)
[2020-10-02] MEDS: PANTOPRAZOLE 40 MG/10 ML VIAL IV SCH (09:55)
[2020-10-02] MEDS: carvediloL 3.125 MG TAB PO SCH ×2 (09:55→17:09)
[2020-10-02] MEDS: GABAPENTIN 300 MG CAP PO SCH ×3 (09:55→21:11)
[2020-10-02] MEDS: SENNOSIDES 8.6 MG TAB PO SCH ×2 (09:55→21:11)
[2020-10-02] MEDS: amLODIPine 5 MG TAB PO SCH (09:55)
--- NOTE | 2020-10-02 10:54 | CDI ---
Documentation Clarification Form Date: 10/02/2020 10:11:22 AM From: Veronica Wilkerson RN CCDS Admit Date: 09/18/2020 01:40:00 PM Patient Name: De Prieto Visit Number: [id number] Discharge Date: ATTENTION: The Clinical Documentation Specialists (CDI) and [facility] Coding Staff appreciate your assistance in clarifying documentation. Please respond to the clarification below the line at the bottom and electronically sign. The CDI & [facility] Coding staff will review the response and follow-up if needed. Please note: Queries are made part of the Legal Health Record. If you have any questions, please contact the author of this message via ITS. Dr. Claudia Bran Acute encephalopathy-multifactorial was documented on 09/29 and subsequent progress notes. Please render your opinion on the most appropriate etiology for the encephalopathy. History/Risk Factors: Clinical Indicators: 80-year-old male who is post procedure day # 4. Nursing staff reported that he was confused and lethargic. He know his name. He was found to be tachypneic and tachycardic. 09/29 Vital signs: 117/75 97 25 98.2 shallow breathing, saturating at 93 % on 2/L up to 6/L nasal cannula. He has diminish breath sounds in all lung devries. 09/29 Labs: WBC 59, HGB 10.4, BUN 11, and Creatinine 0.6 ABG: Showing pH of 7.22, PCO2 77, PO2 of 55. The patient was started on BiPAP. 09/29 Assessment/Plan: "It could be multifactorial patient is obese, taking pain medications including Dilaudid, oxycodone and Flexeril He is on antibiotics in the form of Vancomycin. Overall prognosis is guarded due to chronic medical conditions including end-stage metastatic lung cancer. 09/29 Chest X Ray: Worsening left opacities Treatment: Neurological assessment per protocol Dilaudid 1 MG IVP Q 3HR PRN Ultram 50 MG PO Q 6 H PRN OxyContin 20 mg Q 12 PRN Monitor O2 Sats (titrate) Vancomycin 1,750 MG IVPB Q 12/HRS In your professional opinion, please clarify the etiology of the Encephalopathy, if known. Acute Toxic Encephalopathy due to drugs (further specify) Acute Hypoxic Encephalopathy due to chronic medical condition Other condition (please specify) Unable to determine (Last Revision: October 2017) -Acute encephalopathy - toxic encephalopathy which is resolved at this time secondary to pain medications MTDD
--- NOTE | 2020-10-02 12:39 | P.PN ---
Subjective Progress Note Date: 10/02/20 Principal diagnosis: T9-T10 fractures B1 pathologic Patient seen and examined this morning. He is currently using his BiPAP and is just woken up and he states he had a pretty good night denies any current pain. States everything is moving similarly. Denies any new fevers chills shortness of breath or chest pain. Denies any new numbness or tingling or weakness. He has somewhat of a difficult day yesterday he was up a couple of times but really did not go very far. Objective - Vital Signs Vital signs: Vital Signs Temp 97.3 F L 10/02/20 11:32 Pulse 94 10/02/20 11:32 Resp 18 10/02/20 11:32 BP 120/76 10/02/20 11:32 Pulse Ox 89 L 10/02/20 11:32 Intake & Output 10/01/20 10/02/20 10/02/20 18:59 06:59 18:59 Intake Total 300 Output Total 1300 1200 Balance -1300 -900 Weight 129 kg Intake: Oral 300 Output: Drainage 100 Right Back 100 Urine 1200 1200 Uretheral (Tran) 600 Other: Voiding Method Indwelling Catheter Indwelling Catheter ABP, PAP, CO, CI - Last Documented Arterial Blood Pressure 162/72 - Exam Exam is stable at this time. The PET patient waxes and wanes with his generalized weakness secondary to his medical state. He does take max assist to get up at this time. He does not have any tensioning signs thoracic or cervical myelopathic signs no radiculopathy at this time PHYSICAL EXAMINATION: Vitals: Stable at this time General: Awake, alert, appropriate for age, in no acute distress. HEENT: No unusual neck masses around region of lateral neck triangle, thyroid, supraclavicular groove. Heart: Regular rate and rhythm, normal S1, S2 and no murmur/gallop. Lungs: Clear to auscultation bilaterally with no use of accessory muscles. Extremities: Skin warm and dry without no acute lesions, coloration, temperature, skin intact, no tenderness or erythema. Integument: Hairy patches: Absent Dorsal skin dimples: Absent Cafe au lait spots: Absent Surgical incisions: Incision is CDI. Drain pulled today. No drainage, purulence, EEE of the incision which is healing well. Palpation: Please see Pain drawing on Intake sheet for further detail. (Tenderness = T, Nontender = NT, Swelling = S, Ecchymosis = E) Findings on Midline and paraspinal palpation and percussion: Cervical: NT Thoracic: Tenderness to palpation or ballottement midline and paraspinal Lumbar: Tennis to palpation in the upper portion however not in the lower portion at this time Sacral: NT Special findings: None Vital extremity exam is stable right knee exam is stable VASCULAR STATUS : Wrist Pulses: 2/4 bilateral radial and ulnar Pedal Pulses: 2/4 bilateral DP and PT Color: Normal with some redness Edema: BL LE, 1+ pitting NEUROLOGIC EXAMINATION: Mental Status: Awake and alert, fully oriented, with normal attention, concentration and memory, and fluent, appropriate speech. Cranial Nerves: I: Olfactory not tested. II: Visual acuity normal, no visual field deficit noted with confrontation. III,IV: Normal pupillary reflexes & intact extraocular movements without nystagmus. V,: Intact symmetrical facial sensation. VII: Intact symmetrical facial motor movement VIII: Hearing intact. IX,X: Intact gag, swallow, & normal voice. XI: Sternocleidomastoid, trapezius function intact. XII: Tongue midline with normal movements. Special Tests: L'hermitte's Sign: Absent Spurling'Sign: Absent Bilateral Cubital percussion test: Absent Bilateral Jossue-Tinel sign - Carpal region: Absent Bilateral Straight Leg Raising: Absent Bilateral Motor Exam (0-5/5, N/T) STRENGTH UPPER EXTREMITY Shoulder Abd (Not part of [place] Motor score): RIGHT 5 LEFT 5 Elbow Flexors: RIGHT 5 LEFT 5 Elbow Extensor: RIGHT 5 LEFT 5 Wrrist Dorsiflexors: RIGHT 5 LEFT 5 Finger Abductor: RIGHT 5 LEFT 5 Configuration Release Manager: RIGHT 5 LEFT 5 LOWER EXTREMITY Hip Flexor (Not part of [place] Motor Score): RIGHT 4+ LEFT 5 Knee Flexor: RIGHT 4+ LEFT 5 Knee Extensor: RIGHT 4+ LEFT 5 Ankle Dorsiflexion: RIGHT 5 LEFT 5 Ankle Plantarflexion: RIGHT 5 LEFT 5 EHL: RIGHT 4+ LEFT 5 FHL: RIGHT 5 LEFT 5 Generalized weakness of the lower extremities secondary to extended hospital stay REFLEXES Biecp: RIGHT 2 LEFT 2 Tricep: RIGHT 2 LEFT 2 Brachioradialis: RIGHT 2 LEFT 2 Patellar: RIGHT 2 LEFT 2 Achilles: RIGHT 2 LEFT 2 Pathological Reflexes Santamaria's: RIGHT Absent LEFT Absent Babinski: RIGHT Absent LEFT Absent Clonus: RIGHT None LEFT None SENSORY Joint Position: Intact bilaterally Vibration Intact bilaterally Pain and LT sense Intact C5-T1 and L2-S1 Dermatomal deficit None Gait and Functional Evaluation: Ambulatory aids: Walker and TLSO Hand and finger dexterity intact bilaterally. Disdiadochokinesis examination negative bilaterally. - Labs CBC & Chem 7: 09/30/20 10:48 10/02/20 05:19 Assessment and Plan Assessment: 80 yo male POD#7 T6-L1 fixation for T9-10 unstable B1 fractures. 1. T9 and T10 acute split-type fractures, chance-type fractures no posterior column involvement evident, MRI not possible secondary to stents and pacemaker. Continued pain despite conservative management physical therapy and bracing medications. Increasing need for narcotic medications 2. Status post T10 kyphoplasty 3. Status post fall from standing 4. Lung carcinoma with metastasis status post radiation 5. Complex medical patient with significant cardiovascular respiratory history, morbid obesity Plan: -Appreciate medical management by a consulting services. -Pain control: At this time. Would consider decreasing pain medications in going on more of a Percocet or [place] instead of Dilaudid every 2-3 hours. Consider decreasing or getting out of the ox he ER. -Aggressive ambulation protocol. OOB with all meals. OOB or in chair 4-5x daily. -PT/OT -TEDs, SCDs, mechanical ppx. OK for heparin today. Early ambulation is best. -GI ppx. -No further imaging needed at this time -Trend labs. -Dispo: Will likely need ECF placement.
--- NOTE | 2020-10-02 14:20 | P.PN ---
Subjective 80-year-old pleasant male fairly functional before his severe back pain secondary to metastatic lung cancer. Patient is admitted secondary to fall found to have fracture of the T9 vertebral body. Orthotic surgery evaluation there are planning on stimulation his surgery for this vertebral body. Patient appears to have a pathological fracture patient is also found to have right knee strain without any fracture and knee effusion. Patient had multiple hospital physicians recently for severe back pain for which patient had a biopsy which showed metastatic metastatic non-small cell lung cancer for which patient is presently receiving radiation therapy patient had a recent kyphoplasty of pathological fracture of T10 vertebral body. Patient is a well-known and very pleasant gentleman does have some medical problems including obesity hypove ntilation syndrome and sleep apnea. 09/21/2020 Patient is seen and evaluated in follow-up with no acute overnight issues. Does have his back brace on and is currently sitting up in the chair with family at the bedside. Patient is attempting for aggressive physical therapy and getting up and sitting in the chair at least 3 times per day. We are currently following along with orthopedic surgery and possible tentative surgery next Thursday if patient's progression with physical therapy does not help. Patient is attempting to avoid surgery if possible. 09/22/2020 Patient the started having pain again pain management is managing the patient patient was started back on fentanyl patch 09/23/2020 Patient's the pain is better. Patient had bowel movement today. 09/24/2020 Patient is seen and evaluated in follow-up and reports to having some increased back pain. Patient is tentatively scheduled for surgical intervention in the morning. Will hold Lovenox after today and patient will be nothing by mouth at midnight. Repeat labs today within normal limits. Patient denies any chest pa in or palpitations. Patient is afebrile. 09/25/2020 Patient was seen and evaluated this morning prior to being taken for surgery this morning with no acute overnight issues. Lovenox was held and patient is nothing by mouth. Will await surgical report and repeat a.m. labs and continue to monitor closely. Patient will be returning to the ICU for close monitoring status post surgery. 09/26/2020 Patient is seen this morning currently remains in the ICU being closely monitored. Patient was extubated successfully and is following commands and alert and oriented. Patient does have pain and will continue with pain management medications. Patient is status post surgical intervention with Dr. Cee. Hemoglobin stable this morning at 11.2, white blood count 9.9, sodium 136, potassium 4.1, and creatinine 0.57. Continue with Accu-Cheks every 6 and diet will be resumed. Lovenox also being restarted. Blood pressure slightly elevated this morning prior to receiving Coreg and will be closely monitored in the ICU. 09/27/2020 Patient is seen in follow-up continues to be in the ICU awaiting for transition to [facility]. Patient is being closely monitored status post T6 through L1 spinal decompression and fusion surgery with Dr. Cee. Patient was started on IV ceftriaxone for the possibility of UTI although culture report finalized showing normal bay. Patient denies any dysuria or retention and currently has an indwelling Tran catheter status post surgery. Patient maintained on Lovenox although okay to resume Eliquis. Patient currently working with physical therapy and reapplying back brace at the side of the bed. Patient continues to be in pain and is maintained on pain medications per primary service. White blood count is normal at 7.4 hemoglobin is stable at 10.3, current sodium is 134 with a potassium of 3.9 and creatinine is 0.51. Blood sugars have been fairly well controlled not requiring any insulin and patient is maintained on Accu- Cheks. Patient is tolerating diet and being advanced as tolerated. Patient denies any chest pain or shortness of breath. Nursing staff working on weaning FiO2 and patient is currently maintained on 2 L at 96-100%. 09/28/2020 Patient is seen and evaluated in follow-up this morning on [facility] unit and has been transferred out of the ICU and is being closely monitored. Patient is having continued back pain this morning and has been standing at the bedside although not much walking. PT/OT following. CBC within normal limits will repeat a.m. labs and monitor closely. On 09/29/2020 -the nursing staff reported that the patient was confused and lethargic this morning. When I went into the room patient was confused, he knew his name but mentions that he does not feel good but he cannot explain to me what is going on. He was found to be tachypneic and tachycardic. Review of systems could not be done as the patient was confused. On looking at his vitals his T-max 98.2, heart rate 97, respiratory rate 25, shallow breathing, blood pressure 117 x 75 and saturating at 93% on 2 L of nasal cannula. On reviewing his labs white count of 5.9, hemoglobin 10.4, platelets 133. Sodium 143, potassium 3.8, chloride 105, bicarb 32, BUN 11, creatinine 0.6. On 09/30/2020 Patient is seen and examined at bedside. His mentation has improved a lot compared to yesterday. Patient was maintained on BiPAP last night and this morning he is transitioned to nasal cannula and is on 2 L of nasal cannula saturating at 93%. He still complains of ongoing low back pain. He mentions that he had a bowel movement last night and since then his abdominal pain has resolved. Patient denies having any chest pain or palpitations. Denies having any fevers chills or rigors. On reviewing the vitals temperature of 97.4, 92 heart rate, respiratory 20, blood pressure 144/80, saturating at 92% on 2 L of nasal cannula. On reviewing labs white count of 6.5, troponin 10.8, platelets 133. Sodium 137, but it 0.4, chloride 97, bicarb 35, BUN 13, creatinine 0.60 10/01/2020 Patient is seen and evaluated this morning with no acute overnight issues. Patient is maintained on 2 L of oxygen via nasal cannula and has been using CPAP at night. Patient is alert and oriented 3 and has continued pain in his back. Patient currently attempting to move up in the bed although is having difficulty pulling his weight up and also difficulty with flexing and bending his bilateral lower extremities to assist with the push. Patient continues to be extremely weak and is being seen and evaluated by PT/OT therapy. Potassium 3.3 today and being replaced and will repeat a.m. labs. Other labs within normal limits. Social work following this patient may benefit from rehab and are requesting inpatient rehab only otherwise states she will take him home. 10/02/2020 Patient is sitting in chair patient still received quite a few pain medications but doing much better today compared to yesterday. Orthopedic surgery is re commending aggressive ambulatory protocol. Review of systems: Constitutional: No reports of fatigue, fever, or chills Cardiovascular: No reports of chest pain or palpitations Respiratory: No reports of shortness of breath or cough GI: No reports of nausea, vomiting, or diarrhea : No reports of dysuria or retention Neurovascular: reports generalized weakness and continued back pain All medications have been reviewed Objective - Vital Signs Vital signs: Vital Signs Temp 97.3 F L 10/02/20 11:32 Pulse 94 10/02/20 11:32 Resp 18 10/02/20 11:32 BP 120/76 10/02/20 11:32 Pulse Ox 89 L 10/02/20 11:32 Intake & Output 10/01/20 10/02/20 10/02/20 18:59 06:59 18:59 Intake Total 300 Output Total 1300 1200 Balance -1300 -900 Weight 129 kg Intake: Oral 300 Output: Drainage 100 Right Back 100 Urine 1200 1200 Uretheral (Tran) 600 Other: Voiding Method Indwelling Catheter Indwelling Catheter ABP, PAP, CO, CI - Last Documented Arterial Blood Pressure 162/72 - Exam GENERAL: The patient is alert and oriented x3, not in any acute distress. Well developed, well nourished. Currently on 2 L of oxygen via nasal cannula and discuss with nursing staff about weaning as tolerated HEENT: Pupils are round and equally reacting to light. EOMI. No scleral icterus. No conjunctival pallor. Normocephalic, atraumatic. No pharyngeal erythema. No thyromegaly. CARDIOVASCULAR: S1 and S2 present. No murmurs, rubs, or gallops. PULMONARY: Chest is clear to auscultation, no wheezing or crackles. ABDOMEN: Soft, nontender, nondistended, normoactive bowel sounds. No palpable organomegaly. MUSCULOSKELETAL: Deferred to orthopedic surgery EXTREMITIES: No cyanosis, clubbing, or pedal edema. NEUROLOGICAL: Gross neurological examination did not reveal any focal deficits. Diffuse weakness SKIN: No rashes. - Labs CBC & Chem 7: 09/30/20 10:48 10/02/20 05:19 Assessment and Plan Plan: -Acute encephalopathy -toxic encephalopathy which resolved at this time secondary to pain medication -Acute hypoxic respiratory failure: May be secondary to atelectasis -Chronic hypercapnic respiratory failure secondary to sleep apnea and obesity hypoventilation syndrome -Obesity Hypoventilation syndrome -T9 vertebral body fracture: Patient is status post surgical intervention with orthopedic surgery postop day # 7, patient is not a candidate for inpatient rehabilitation patient was discharged to subacute rehabilitation -Right knee strain without any fracture, using immobilizer while out of bed -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 Patient is on Eliquis which has been resumed -Hypertension -Obesity -Coronary artery disease PLAN: Patient was placed on BiPAP last night and change to nasal cannula and saturating around 93% on 2 L of oxygen. Patient is alert and oriented 3. Maintained on vancomycin, postoperative antibiotics. He is on Eliquis for anticoagulation. Protonix for GI prophylaxis. Overall prognosis is guarded due to chronic medical conditions including end-stage metastatic lung cancer. Social work following and a consult was placed for [facility] inpatient rehab evaluation otherwise family states they will be taking him home once stabilized and discharged. Patient continues to be extremely weak requiring almost total assist. Further recommendations to follow depending on the progress of the patient.
--- NOTE | 2020-10-02 14:44 | P.PN ---
Subjective Progress Note Date: 10/02/20 Principal diagnosis: Metastatic Cancer at bedside, Dr. Garcia hoping to increase patients strength with rehabilitation Objective - Vital Signs Vital signs: Vital Signs Temp 97.3 F L 10/02/20 11:32 Pulse 94 10/02/20 11:32 Resp 18 10/02/20 11:32 BP 120/76 10/02/20 11:32 Pulse Ox 89 L 10/02/20 11:32 Intake & Output 10/01/20 10/02/20 10/02/20 18:59 06:59 18:59 Intake Total 300 Output Total 1300 1200 Balance -1300 -900 Weight 129 kg Intake: Oral 300 Output: Drainage 100 Right Back 100 Urine 1200 1200 Uretheral (Tran) 600 Other: Voiding Method Indwelling Catheter Indwelling Catheter ABP, PAP, CO, CI - Last Documented Arterial Blood Pressure 162/72 - Exam - Constitutional General appearance: cooperative, no acute distress - EENT Eyes: EOMI, PERRLA ENT: hard of hearing, NA/AT - Neck Neck: normal ROM - Respiratory Respiratory: bilateral: diminished - Cardiovascular Rhythm: regular leg Peripheral Edema: bilateral: 2+ LUE Edema - Gastrointestinal General gastrointestinal: soft - Integumentary Integumentary: pale - Neurologic RYAN due to pain - Musculoskeletal Musculoskeletal: generalized weakness - Psychiatric Psychiatric: A&O x's 3 - Labs CBC & Chem 7: 09/30/20 10:48 10/02/20 05:19 Assessment and Plan Plan: Assessment and Recommendations: Recurrent Non-Small Cell Lung Ca: With recent progression to bone/spine - Status post radiation therapy positive bone biopsy T10 NSCLCA poorly differentiated - Will send path for molecular NGS, prior lung biopsy was PDL1 - 90% Recent Fall with Multiple pathological fractures: - T9 and T10 Fractures, unable to perform MRI due to stents and pacer - Status Post surgical intervention with orthospine - At this time no improvements planning on intervention today Neoplastic related pain: - Continue current regimen Continue support care. Treatment plan to be consisdered following increased performance and discharge from hospitalization PLan: - COntinue with Therapy and supportive care - COntinued improved performance and oxygenation will determine options of pallaitve treatment, immmune therapy. Discussed with patient and . They understand the current situation is not curable at this time, however palliaitive treatment maybe consisdered considering he is improving overall performance. PHYSICIAN ATTEST: i HAVE COMPLETED THE FULL HISTORY AND PHYSICAL AND AGREE WITH ABOVE DICTATION, DICTATED A SCRIBE.
[2020-10-03] MEDS ORDERED: VANCOMYCIN TROUGH DUE 1 EACH MISC MISCELLANE ONE (07:00)
[2020-10-03] MEDS: LACTATED RINGERS 1,000 ML IV SCH ×2 (07:25→17:58)
[2020-10-03] MEDS: GABAPENTIN 300 MG CAP PO SCH ×3 (08:01→21:00)
[2020-10-03] MEDS: oxyCODONE ER 20 MG TAB.ER.12H PO PRN (08:02)
[2020-10-03] MEDS: PANTOPRAZOLE 40 MG/10 ML VIAL IV SCH (08:02)
[2020-10-03] MEDS: APIXABAN 5 MG TAB PO SCH ×2 (08:02→21:00)
[2020-10-03] MEDS: SENNOSIDES 8.6 MG TAB PO SCH ×2 (08:02→21:00)
[2020-10-03] MEDS: carvediloL 3.125 MG TAB PO SCH ×2 (08:03→17:57)
[2020-10-03] MEDS: amLODIPine 5 MG TAB PO SCH (08:03)
[2020-10-03] MEDS: VANCOMYCIN 1,750 MG in SODIUM CHLORIDE 0.9% 500 ML 500 ML IVPB SCH ×2 (08:12→23:31)
[2020-10-03 09:05] LABS: Basophils # (A) 0.03 X 10*3/uL (0.00-0.10); Basophils % (A) 0.6 %; Eosinophils % (A) 14.2 %; HCT 31.3 % (39.6-50.0); HGB 9.9 g/dL (13.0-17.0); Lymphocytes # (A) 0.53 X 10*3/uL (0.90-5.00); Lymphocytes % (A) 10.7 %; MCH 30.2 pg (27.0-32.0); MCHC 31.6 g/dL (32.0-37.0); MCV 95.4 fL (80.0-97.0); Mean Platelet Volume 9.2 fL (9.5-12.2); Monocytes # (A) 0.54 X 10*3/uL (0.20-1.00); Monocytes % (A) 10.9 %; Neutrophils # (A) 2.95 X 10*3/uL (1.80-7.70); Neutrophils % (A) 59.8 %; Platelet Count 180 X 10*3/uL (140-440); RBC 3.28 X 10*6/uL (4.40-5.60); WBC 4.94 X 10*3/uL (4.50-10.00)
--- NOTE | 2020-10-03 09:35 | P.PN ---
<Aiden Carrillo - Last Filed: 10/03/20 08:47> Subjective Progress Note Date: 10/03/20 Principal diagnosis: T9 to T10 fractures B-1 pathologic Upon entering room patient was awake, lying semi-recumbent in bed with BiPAP. Patient says he is feeling well today. He says yesterday he got up out of bed and was in chair for 4 hours. Says he had 2 bowel movements yesterday as well. Denies any new fevers, chills, shortness of breath. Denies chest pain. Objective - Vital Signs Vital signs: Vital Signs Temp 97.8 F 10/03/20 05:00 Pulse 100 10/03/20 05:00 Resp 22 10/03/20 05:00 BP 126/77 10/03/20 05:00 Pulse Ox 93 L 10/03/20 05:00 Intake & Output 10/02/20 10/03/20 10/03/20 18:59 06:59 18:59 Intake Total 400 Output Total 1050 1300 Balance -1050 -900 Intake: Oral 400 Output: Urine 1050 1300 Uretheral (Tran) 650 Other: Voiding Method Indwelling Catheter # Bowel Movements 1 ABP, PAP, CO, CI - Last Documented Arterial Blood Pressure 162/72 - Labs CBC & Chem 7: 09/30/20 10:48 10/02/20 05:19 <Carlos Cee - Last Filed: 10/03/20 09:35> Subjective He denies any new numbness or tingling. He denies any perineal numbness or tingling. Objective - Vital Signs Vital signs: Vital Signs Temp 97.8 F 10/03/20 05:00 Pulse 100 10/03/20 05:00 Resp 22 10/03/20 05:00 BP 126/77 10/03/20 05:00 Pulse Ox 93 L 10/03/20 05:00 Intake & Output 10/02/20 10/03/20 10/03/20 18:59 06:59 18:59 Intake Total 400 Output Total 1050 1300 Balance -1050 -900 Intake: Oral 400 Output: Urine 1050 1300 Uretheral (Tran) 650 Other: Voiding Method Indwelling Catheter # Bowel Movements 1 ABP, PAP, CO, CI - Last Documented Arterial Blood Pressure 162/72 - Exam Exam is stable at this time. The patient dressing is clean and dry at this time. Incision is clean and dry. He is wearing the high ROM in his right lower extremity. His TLSO is in the room and he wears it when he is up and about. He has good strength in his lower extremities and upper external is bilaterally in this is not changed. Reflexes are stable as well as sensory exam stable. - Labs CBC & Chem 7: 10/03/20 06:02 10/02/20 05:19 Labs: Abnormal Lab Results - Last 24 Hours (Table) 10/03/20 Range/Units 06:02 RBC 3.28 L (4.40-5.60) X 10*6/uL Hgb 9.9 L (13.0-17.0) g/dL Hct 31.3 L (39.6-50.0) % MCHC 31.6 L (32.0-37.0) g/dL RDW 15.0 H (11.5-14.5) % MPV 9.2 L (9.5-12.2) fL Immature Gran # 0.19 H (0.00-0.04) X 10*3/uL Lymphocytes # 0.53 L (0.90-5.00) X 10*3/uL Eosinophils # 0.70 H (0.04-0.35) X 10*3/uL Assessment and Plan Assessment: 80 yo male POD#8 T6-L1 fixation for T9-10 unstable B1 fractures. 1. T9 and T10 acute split-type fractures, chance-type fractures no posterior column involvement evident, MRI not possible secondary to stents and pacemaker. Continued pain despite conservative management physical therapy and bracing medications. Increasing need for narcotic medications 2. Status post T10 kyphoplasty 3. Status post fall from standing 4. Lung carcinoma with metastasis status post radiation 5. Complex medical patient with significant cardiovascular respiratory history, morbid obesity Plan: -Appreciate medical management by a consulting services. -Pain control: At this time. Would consider decreasing pain medications in going on more of a Percocet or [place] instead of Dilaudid every 2-3 hours. Consider decreasing or getting out of the ox he ER. -Aggressive ambulation protocol. OOB with all meals. OOB or in chair 4-5x daily. -PT/OT -TEDs, SCDs, mechanical ppx. OK for heparin today. Early ambulation is best. -GI ppx. -No further imaging needed at this time -Trend labs. -Dispo: Stable from an ortho/spine standpoint for ECF
[2020-10-03 10:00] LABS: African American GFR (CKD) 111.6 (60.0-200.0); Albumin 2.5 g/dL (3.80-4.90); Albumin/Globulin Ratio 1.39 (1.60-3.17); Anion Gap 6.9 mmol/L (4.00-12.00); BUN/Creat Ratio 16.67 Ratio (12.00-20.00); Calcium 8.3 mg/dL (8.7-10.3); Carbon Dioxide 38.1 mmol/L (21.6-31.8); Globulin 1.8 g/dL (1.6-3.3); Magnesium 1.8 mg/dL (1.5-2.4); Non-African American GFR(CKD) 96.3 (60.0-200.0); Potassium 3.6 mmol/L (3.5-5.5); Total Bilirubin 0.5 mg/dL (0.2-1.2); Total Protein 4.3 g/dL (6.2-8.2)
--- NOTE | 2020-10-03 13:06 | P.PN ---
Progress Note - Text Asked to review patient. PT reports maximal assist for bed mobility, moderate assist for standing/transfer. 12 minutes. OT reports moderate assist for upper dress, maximal assist for lower dress, bathing, toileting and 2 person assist for functional mobility and toilet transfers. 15 minutes. Patient still with poor endurance and would be unable to participate with a full inpatient rehab program. Still requires 24/7 care of one or more persons and thus still recommend a slower paced program such as SNF. I will continue to follow and review patient progress every AM.
--- NOTE | 2020-10-03 14:25 | P.PN ---
Subjective Progress Note Date: 10/03/20 Principal diagnosis: Metastatic Cancer Continues daily working with PT/OT, Oxygenation continues to improve, labs remain in safe range, PMR is following. Albumin low, he has started to increase diet. Objective - Vital Signs Vital signs: Vital Signs Temp 97.7 F 10/03/20 12:16 Pulse 70 10/03/20 12:16 Resp 19 10/03/20 12:16 BP 108/70 10/03/20 12:16 Pulse Ox 96 10/03/20 12:16 Intake & Output 10/02/20 10/03/20 10/03/20 18:59 06:59 18:59 Intake Total 400 Output Total 1050 1300 Balance -1050 -900 Intake: Oral 400 Output: Urine 1050 1300 Uretheral (Tran) 650 Other: Voiding Method Indwelling Catheter Indwelling Catheter # Bowel Movements 1 1 ABP, PAP, CO, CI - Last Documented Arterial Blood Pressure 162/72 - Exam - Constitutional General appearance: cooperative, no acute distress - EENT Eyes: EOMI, PERRLA ENT: hard of hearing, NA/AT - Neck Neck: normal ROM - Respiratory Respiratory: bilateral: diminished - Cardiovascular Rhythm: regular leg Peripheral Edema: bilateral: 2+ LUE Edema - Gastrointestinal General gastrointestinal: soft - Integumentary Integumentary: pale - Neurologic RYAN due to pain - Musculoskeletal Musculoskeletal: generalized weakness - Psychiatric Psychiatric: A&O x's 3 - Labs CBC & Chem 7: 10/03/20 06:02 10/03/20 06:02 Labs: Abnormal Lab Results - Last 24 Hours (Table) 10/03/20 10/03/20 Range/Units 06:02 06:02 RBC 3.28 L (4.40-5.60) X 10*6/uL Hgb 9.9 L (13.0-17.0) g/dL Hct 31.3 L (39.6-50.0) % MCHC 31.6 L (32.0-37.0) g/dL RDW 15.0 H (11.5-14.5) % MPV 9.2 L (9.5-12.2) fL Immature Gran # 0.19 H (0.00-0.04) X 10*3/uL Lymphocytes # 0.53 L (0.90-5.00) X 10*3/uL Eosinophils # 0.70 H (0.04-0.35) X 10*3/uL Carbon Dioxide 38.1 H (21.6-31.8) mmol/L Glucose 116 H (70-110) mg/dL Calcium 8.3 L (8.7-10.3) mg/dL Alkaline Phosphatase 146 H (41-126) U/L Total Protein 4.3 L (6.2-8.2) g/dL Albumin 2.50 L (3.80-4.90) g/dL Albumin/Globulin Ratio 1.39 L (1.60-3.17) g/dL Assessment and Plan Plan: Assessment and Recommendations: Recurrent Non-Small Cell Lung Ca: With recent progression to bone/spine - Status post radiation therapy positive bone biopsy T10 NSCLCA poorly differentiated - Will send path for molecular NGS, prior lung biopsy was PDL1 - 90% Recent Fall with Multiple pathological fractures: - T9 and T10 Fractures, unable to perform MRI due to stents and pacer - Status Post surgical intervention with orthospine - At this time no improvements planning on intervention today Neoplastic related pain: - Continue current regimen Continue support care. Treatment plan to be consisdered following increased performance and discharge from hospitalization PLan: - COntinue with Therapy and supportive care - COntinued improved performance and oxygenation will determine options of pallaitve treatment, immmune therapy. - Dieticien to increase protein options to allow healing and increase performance and albumin levels - Plan for hopefull IPR at discharge.
--- NOTE | 2020-10-03 17:13 | P.PN ---
Subjective Progress Note Date: 10/03/20 - Reason for Consult Metastatic lung cancer, preoperative clearance - History of Present Illness 80-year-old pleasant male fairly functional before his severe back pain secondary to metastatic lung cancer. Patient is admitted secondary to fall found to have fracture of the T9 vertebral body. Orthotic surgery evaluation there are planning on stimulation his surgery for this vertebral body. Patient appears to have a pathological fracture patient is also found to have right knee strain without any fracture and knee effusion. Patient had multiple hospital physicians recently for severe back pain for which patient had a biopsy which showed metastatic metastatic non-small cell lung cancer for which patient is presently receiving radiation therapy patient had a recent kyphoplasty of pathological fracture of T10 vertebral body. Patient is a well-known and very pleasant gentleman does have some medical problems including obesity hypoventilation syndrome and sleep apnea. 09/21/2020 Patient is seen and evaluated in follow-up with no acute overnight issues. Does have his back brace on and is currently sitting up in the chair with family at the bedside. Patient is attempting for aggressive physical therapy and getting up and sitting in the chair at least 3 times per day. We are currently following along with orthopedic surgery and possible tentative surgery next Thursday if patient's progression with physical therapy does not help. Patient is attempting to avoid surgery if possible. 09/22/2020 Patient the started having pain again pain management is managing the patient patient was started back on fentanyl patch 09/23/2020 Patient's the pain is better. Patient had bowel movement today. 09/24/2020 Patient is seen and evaluated in follow-up and reports to having some increased back pain. Patient is tentatively scheduled for surgical intervention in the morning. Will hold Lovenox after today and patient will be nothing by mouth at midnight. Repeat labs today within normal limits. Patient denies any chest pain or palpitations. Patient is afebrile. 09/25/2020 Patient was seen and evaluated this morning prior to being taken for surgery this morning with no acute overnight issues. Lovenox was held and patient is nothing by mouth. Will await surgical report and repeat a.m. labs and continue to monitor closely. Patient will be returning to the ICU for close monitoring status post surgery. 09/26/2020 Patient is seen this morning currently remains in the ICU being closely monitored. Patient was extubated successfully and is following commands and alert and oriented. Patient does have pain and will continue with pain management medications. Patient is status post surgical intervention with Dr. Cee. Hemoglobin stable this morning at 11.2, white blood count 9.9, sodium 136, potassium 4.1, and creatinine 0.57. Continue with Accu-Cheks every 6 and diet will be resumed. Lovenox also being restarted. Blood pressure slightly elevated this morning prior to receiving Coreg and will be closely monitored in the ICU. 09/27/2020 Patient is seen in follow-up continues to be in the ICU awaiting for transition to [facility]. Patient is being closely monitored status post T6 through L1 spinal decompression and fusion surgery with Dr. Cee. Patient was started on IV ceftriaxone for the possibility of UTI although culture report finalized showing normal bay. Patient denies any dysuria or retention and currently has an indwelling Tran catheter status post surgery. Patient maintained on Lovenox although okay to resume Eliquis. Patient currently working with physical therapy and reapplying back brace at the side of the bed. Patient continues to be in pain and is maintained on pain medications per primary service. White blood count is normal at 7.4 hemoglobin is stable at 10.3, current sodium is 134 with a potassium of 3.9 and creatinine is 0.51. Blood sugars have been fairly well controlled not requiring any insulin and patient is maintained on Accu- Cheks. Patient is tolerating diet and being advanced as tolerated. Patient denies any chest pain or shortness of breath. Nursing staff working on weaning FiO2 and patient is currently maintained on 2 L at 96-100%. 09/28/2020 Patient is seen and evaluated in follow-up this morning on [facility] unit and has been transferred out of the ICU and is being closely monitored. Patient is having continued back pain this morning and has been standing at the bedside although not much walking. PT/OT following. CBC within normal limits will repeat a.m. labs and monitor closely. On 09/29/2020 -the nursing staff reported that the patient was confused and lethargic this morning. When I went into the room patient was confused, he knew his name but mentions that he does not feel good but he cannot explain to me what is going on. He was found to be tachypneic and tachycardic. Review of systems could not be done as the patient was confused. On looking at his vitals his T-max 98.2, heart rate 97, respiratory rate 25, shallow breathing, blood pressure 117 x 75 and saturating at 93% on 2 L of nasal cannula. On reviewing his labs white count of 5.9, hemoglobin 10.4, platelets 133. Sodium 143, potassium 3.8, chloride 105, bicarb 32, BUN 11, creatinine 0.6. On 09/30/2020 Patient is seen and examined at bedside. His mentation has improved a lot compared to yesterday. Patient was maintained on BiPAP last night and this morning he is transitioned to nasal cannula and is on 2 L of nasal cannula saturating at 93%. He still complains of ongoing low back pain. He mentions that he had a bowel movement last night and since then his abdominal pain has resolved. Patient denies having any chest pain or palpitations. Denies having any fevers chills or rigors. On reviewing the vitals temperature of 97.4, 92 heart rate, respiratory 20, blood pressure 144/80, saturating at 92% on 2 L of nasal cannula. On reviewing labs white count of 6.5, troponin 10.8, platelets 133. Sodium 137, but it 0.4, chloride 97, bicarb 35, BUN 13, creatinine 0.60 10/01/2020 Patient is seen and evaluated this morning with no acute overnight issues. Patient is maintained on 2 L of oxygen via nasal cannula and has been using CPAP at night. Patient is alert and oriented 3 and has continued pain in his back. Patient currently attempting to move up in the bed although is having difficulty pulling his weight up and also difficulty with flexing and bending his bilateral lower extremities to assist with the push. Patient continues to be extremely weak and is being seen and evaluated by PT/OT therapy. Potassium 3.3 today and being replaced and will repeat a.m. labs. Other labs within normal limits. Social work following this patient may benefit from rehab and are requesting inpatient rehab only otherwise states she will take him home. 10/02/2020 Patient is sitting in chair patient still received quite a few pain medications but doing much better today compared to yesterday. Orthopedic surgery is recommending aggressive ambulatory protocol. 10/03/2020 Patient is seen and evaluated in follow-up continues to have back pain and generalized pain with weakness. Seen and evaluated by Dr. Benavides stating he wo uld not be a candidate for inpatient rehab. Social work is following and will discuss with and patient about rehab as patient continues to be weak. Patient is working with PT/OT therapy daily. Patient is maintained on 2 L of oxygen and will discuss with nursing staff about weaning FiO2 as he does not normally wear oxygen in the outpatient setting. Hemoglobin is stable at 9.9, sodium is 141, potassium is 3.6, current creatinine is 0.6 and magnesium is 1.8. Patient continues to be on IV vancomycin per primary service. Pain management per primary service as well. DVT prophylaxis with Eliquis. Review of systems: Constitutional: No reports of fatigue, fever, or chills Cardiovascular: No reports of chest pain or palpitations Respiratory: No reports of shortness of breath or cough GI: No reports of nausea, vomiting, or diarrhea : No reports of dysuria or retention Neurovascular: reports generalized weakness and continued back pain All medications have been reviewed Objective - Vital Signs Vital signs: Vital Signs Temp 97.8 F 10/03/20 05:00 Pulse 100 10/03/20 05:00 Resp 22 10/03/20 05:00 BP 126/77 10/03/20 05:00 Pulse Ox 93 L 10/03/20 05:00 Intake & Output 10/02/20 10/03/20 10/03/20 18:59 06:59 18:59 Intake Total 400 Output Total 1050 1300 Balance -1050 -900 Intake: Oral 400 Output: Urine 1050 1300 Uretheral (Tran) 650 Other: Voiding Method Indwelling Catheter # Bowel Movements 1 ABP, PAP, CO, CI - Last Documented Arterial Blood Pressure 162/72 - Exam GENERAL: The patient is alert and oriented x3, not in any acute distress. Well developed, well nourished. Currently on 2 L of oxygen via nasal cannula and discuss with nursing staff about weaning as tolerated HEENT: Pupils are round and equally reacting to light. EOMI. No scleral icterus. No conjunctival pallor. Normocephalic, atraumatic. No pharyngeal erythema. No thyromegaly. CARDIOVASCULAR: S1 and S2 present. No murmurs, rubs, or gallops. PULMONARY: Chest is clear to auscultation, no wheezing or crackles. ABDOMEN: Soft, nontender, nondistended, normoactive bowel sounds. No palpable organomegaly. MUSCULOSKELETAL: Deferred to orthopedic surgery EXTREMITIES: No cyanosis, clubbing, or pedal edema. NEUROLOGICAL: Gross neurological examination did not reveal any focal deficits. Diffuse weakness SKIN: No rashes. - Labs CBC & Chem 7: 10/03/20 06:02 10/03/20 06:02 Labs: Abnormal Lab Results - Last 24 Hours (Table) 10/03/20 Range/Units 06:02 RBC 3.28 L (4.40-5.60) X 10*6/uL Hgb 9.9 L (13.0-17.0) g/dL Hct 31.3 L (39.6-50.0) % MCHC 31.6 L (32.0-37.0) g/dL RDW 15.0 H (11.5-14.5) % MPV 9.2 L (9.5-12.2) fL Immature Gran # 0.19 H (0.00-0.04) X 10*3/uL Lymphocytes # 0.53 L (0.90-5.00) X 10*3/uL Eosinophils # 0.70 H (0.04-0.35) X 10*3/uL Assessment and Plan Assessment: -Acute encephalopathy - toxic encephalopathy which is resolved at this time secondary to pain medications -Acute hypoxic respiratory failure, may be secondary to atelectasis -Chronic hypercapnic respiratory failure secondary to sleep apnea and obesity hypoventilation syndrome -Obesity Hypoventilation syndrome -T9 vertebral body fracture: Patient is status post surgical intervention with orthopedic surgery postop day # 8, valuated by inpatient rehab and not a candidate and may require subacute rehab for continued PT/OT therapy -Right knee strain without any fracture, using immobilizer while out of bed -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 fib patient is presently rate and rate controlled patient does have a pacemaker. Patient is on Eliquis which has been resumed -Hypertension -Obesity -Coronary artery disease PLAN: Patient continues with BiPAP at night and nasal cannula and saturating around 93% on 2 L of oxygen. Patient is alert and oriented 3. Maintained on v ancomycin, postoperative antibiotics. He is on Eliquis for anticoagulation. Protonix for GI prophylaxis. Overall prognosis is guarded due to chronic medical conditions including end-stage metastatic lung cancer. Social work following and was evaluated by Dr. Benavides with the possibility of inpatient rehab although is not a candidate and will need to discuss with social work and with the patient about the possibility of subacute rehab for continued PT/OT therapy. Patient continues to be extremely weak requiring almost total assist. Will continue to follow along with orthopedic surgery. Thank you for this consultation.
[2020-10-04] MEDS: PANTOPRAZOLE 40 MG/10 ML VIAL IV SCH (08:39)
[2020-10-04] MEDS: carvediloL 3.125 MG TAB PO SCH (08:39)
--- NOTE | 2020-10-04 09:35 | P.PN ---
Subjective Progress Note Date: 10/04/20 Principal diagnosis: T9-T10 fractures B1 pathologic Pt s/e today. Doing well. Up on the comode. States BMs daily now. Denies any perineal numbness/tingling. Denies any F/c/sob/cp. States feeling much better. Objective - Vital Signs Vital signs: Vital Signs Temp 97.7 F 10/04/20 08:27 Pulse 95 10/04/20 08:27 Resp 22 10/04/20 08:27 BP 126/83 10/04/20 08:27 Pulse Ox 94 L 10/04/20 08:27 Intake & Output 10/03/20 10/04/20 10/04/20 18:59 06:59 18:59 Intake Total 1090 Output Total 1200 Balance -110 Intake: Intake, IV Titration 500 Amount Vancomycin 1,750 mg In 500 Sodium Chloride 0.9% 500 ml 500 ml @ 167 mls/hr IVPB Q16H FITO Rx#: [id number] Oral 590 Output: Urine 1200 Other: Voiding Method Indwelling Catheter Urinal # Voids 3 # Bowel Movements 1 ABP, PAP, CO, CI - Last Documented Arterial Blood Pressure 162/72 - Exam Exam is stable at this time. The patient dressing is clean and dry at this time. Incision is clean and dry. He is wearing the high ROM in his right lower extremity. His TLSO is in the room and he wears it when he is up and about. He has good strength in his lower extremities and upper external is bilaterally in this is not changed. Reflexes are stable as well as sensory exam stable. He is up and walking with a walker. - Labs CBC & Chem 7: 10/03/20 06:02 10/03/20 06:02 Labs: Abnormal Lab Results - Last 24 Hours (Table) 10/03/20 Range/Units 06:02 Carbon Dioxide 38.1 H (21.6-31.8) mmol/L Glucose 116 H (70-110) mg/dL Calcium 8.3 L (8.7-10.3) mg/dL Alkaline Phosphatase 146 H (41-126) U/L Total Protein 4.3 L (6.2-8.2) g/dL Albumin 2.50 L (3.80-4.90) g/dL Albumin/Globulin Ratio 1.39 L (1.60-3.17) g/dL Assessment and Plan Assessment: 80 yo male POD#9 T6-L1 fixation for T9-10 unstable B1 fractures. 1. T9 and T10 acute split-type fractures, chance-type fractures no posterior column involvement evident, MRI not possible secondary to stents and pacemaker. Continued pain despite conservative management physical therapy and bracing medications. Increasing need for narcotic medications 2. Status post T10 kyphoplasty 3. Status post fall from standing 4. Lung carcinoma with metastasis status post radiation 5. Complex medical patient with significant cardiovascular respiratory history, morbid obesity Plan: -Appreciate medical management by a consulting services. -Pain control: At this time. Would consider decreasing pain medications in going on more of a Percocet or [place] instead of Dilaudid every 2-3 hours. Consider decreasing or getting out of the ox he ER. -Aggressive ambulation protocol. OOB with all meals. OOB or in chair 4-5x daily. -PT/OT -TEDs, SCDs, mechanical ppx. OK for heparin today. Early ambulation is best. -GI ppx. -No further imaging needed at this time -Trend labs. -Dispo: Stable from an ortho/spine standpoint for ECF
[2020-10-04] MEDS: amLODIPine 5 MG TAB PO SCH (10:05)
[2020-10-04] MEDS: APIXABAN 5 MG TAB PO SCH (10:05)
[2020-10-04] MEDS: GABAPENTIN 300 MG CAP PO SCH (10:05)
[2020-10-04] MEDS: SENNOSIDES 8.6 MG TAB PO SCH (10:06)
--- NOTE | 2020-10-04 12:34 | P.PN ---
Progress Note - Text Progress Note Date: 10/04/20 Patient was sitting up in chair eating lunch watching TV with brace on chest and back. Dressing on the back was removed. There was minimal drainage. Incision site showed good healing of wound. Non-adhesive dressing was applied and foam tape was placed over dressing covering incision on back. Plan to move patient to subacute rehab by tomorrow 10/05/2020
[2020-10-04 12:48] LABS: African American GFR (CKD) 111.6 (60.0-200.0); Non-African American GFR(CKD) 96.3 (60.0-200.0)
[2020-10-04] MEDS: ONDANSETRON 4 MG/2 ML VIAL IVP PRN (12:54)
[2020-10-04 13:21] VITALS: BP 121/81; PULSE 92; RESP 17; TEMP 98.4
--- NOTE | 2020-10-04 14:57 | P.PN ---
Subjective Progress Note Date: 10/04/20 - Reason for Consult Metastatic lung cancer, preoperative clearance - History of Present Illness 80-year-old pleasant male fairly functional before his severe back pain secondary to metastatic lung cancer. Patient is admitted secondary to fall found to have fracture of the T9 vertebral body. Orthotic surgery evaluation there are planning on stimulation his surgery for this vertebral body. Patient appears to have a pathological fracture patient is also found to have right knee strain without any fracture and knee effusion. Patient had multiple hospital physicians recently for severe back pain for which patient had a biopsy which showed metastatic metastatic non-small cell lung cancer for which patient is presently receiving radiation therapy patient had a recent kyphoplasty of pathological fracture of T10 vertebral body. Patient is a well-known and very pleasant gentleman does have some medical problems including obesity hypoventilation syndrome and sleep apnea. 09/21/2020 Patient is seen and evaluated in follow-up with no acute overnight issues. Does have his back brace on and is currently sitting up in the chair with family at the bedside. Patient is attempting for aggressive physical therapy and getting up and sitting in the chair at least 3 times per day. We are currently following along with orthopedic surgery and possible tentative surgery next Thursday if patient's progression with physical therapy does not help. Patient is attempting to avoid surgery if possible. 09/22/2020 Patient the started having pain again pain management is managing the patient patient was started back on fentanyl patch 09/23/2020 Patient's the pain is better. Patient had bowel movement today. 09/24/2020 Patient is seen and evaluated in follow-up and reports to having some increased back pain. Patient is tentatively scheduled for surgical intervention in the morning. Will hold Lovenox after today and patient will be nothing by mouth at midnight. Repeat labs today within normal limits. Patient denies any chest pain or palpitations. Patient is afebrile. 09/25/2020 Patient was seen and evaluated this morning prior to being taken for surgery this morning with no acute overnight issues. Lovenox was held and patient is nothing by mouth. Will await surgical report and repeat a.m. labs and continue to monitor closely. Patient will be returning to the ICU for close monitoring status post surgery. 09/26/2020 Patient is seen this morning currently remains in the ICU being closely monitored. Patient was extubated successfully and is following commands and alert and oriented. Patient does have pain and will continue with pain management medications. Patient is status post surgical intervention with Dr. Cee. Hemoglobin stable this morning at 11.2, white blood count 9.9, sodium 136, potassium 4.1, and creatinine 0.57. Continue with Accu-Cheks every 6 and diet will be resumed. Lovenox also being restarted. Blood pressure slightly elevated this morning prior to receiving Coreg and will be closely monitored in the ICU. 09/27/2020 Patient is seen in follow-up continues to be in the ICU awaiting for transition to [facility]. Patient is being closely monitored status post T6 through L1 spinal decompression and fusion surgery with Dr. Cee. Patient was started on IV ceftriaxone for the possibility of UTI although culture report finalized showing normal bay. Patient denies any dysuria or retention and currently has an indwelling Tran catheter status post surgery. Patient maintained on Lovenox although okay to resume Eliquis. Patient currently working with physical therapy and reapplying back brace at the side of the bed. Patient continues to be in pain and is maintained on pain medications per primary service. White blood count is normal at 7.4 hemoglobin is stable at 10.3, current sodium is 134 with a potassium of 3.9 and creatinine is 0.51. Blood sugars have been fairly well controlled not requiring any insulin and patient is maintained on Accu- Cheks. Patient is tolerating diet and being advanced as tolerated. Patient denies any chest pain or shortness of breath. Nursing staff working on weaning FiO2 and patient is currently maintained on 2 L at 96-100%. 09/28/2020 Patient is seen and evaluated in follow-up this morning on [facility] unit and has been transferred out of the ICU and is being closely monitored. Patient is having continued back pain this morning and has been standing at the bedside although not much walking. PT/OT following. CBC within normal limits will repeat a.m. labs and monitor closely. On 09/29/2020 -the nursing staff reported that the patient was confused and lethargic this morning. When I went into the room patient was confused, he knew his name but mentions that he does not feel good but he cannot explain to me what is going on. He was found to be tachypneic and tachycardic. Review of systems could not be done as the patient was confused. On looking at his vitals his T-max 98.2, heart rate 97, respiratory rate 25, shallow breathing, blood pressure 117 x 75 and saturating at 93% on 2 L of nasal cannula. On reviewing his labs white count of 5.9, hemoglobin 10.4, platelets 133. Sodium 143, potassium 3.8, chloride 105, bicarb 32, BUN 11, creatinine 0.6. On 09/30/2020 Patient is seen and examined at bedside. His mentation has improved a lot compared to yesterday. Patient was maintained on BiPAP last night and this morning he is transitioned to nasal cannula and is on 2 L of nasal cannula saturating at 93%. He still complains of ongoing low back pain. He mentions that he had a bowel movement last night and since then his abdominal pain has resolved. Patient denies having any chest pain or palpitations. Denies having any fevers chills or rigors. On reviewing the vitals temperature of 97.4, 92 heart rate, respiratory 20, blood pressure 144/80, saturating at 92% on 2 L of nasal cannula. On reviewing labs white count of 6.5, troponin 10.8, platelets 133. Sodium 137, but it 0.4, chloride 97, bicarb 35, BUN 13, creatinine 0.60 10/01/2020 Patient is seen and evaluated this morning with no acute overnight issues. Patient is maintained on 2 L of oxygen via nasal cannula and has been using CPAP at night. Patient is alert and oriented 3 and has continued pain in his back. Patient currently attempting to move up in the bed although is having difficulty pulling his weight up and also difficulty with flexing and bending his bilateral lower extremities to assist with the push. Patient continues to be extremely weak and is being seen and evaluated by PT/OT therapy. Potassium 3.3 today and being replaced and will repeat a.m. labs. Other labs within normal limits. Social work following this patient may benefit from rehab and are requesting inpatient rehab only otherwise states she will take him home. 10/02/2020 Patient is sitting in chair patient still received quite a few pain medications but doing much better today compared to yesterday. Orthopedic surgery is recommending aggressive ambulatory protocol. 10/03/2020 Patient is seen and evaluated in follow-up continues to have back pain and generalized pain with weakness. Seen and evaluated by Dr. Benavides stating he wo uld not be a candidate for inpatient rehab. Social work is following and will discuss with and patient about rehab as patient continues to be weak. Patient is working with PT/OT therapy daily. Patient is maintained on 2 L of oxygen and will discuss with nursing staff about weaning FiO2 as he does not normally wear oxygen in the outpatient setting. Hemoglobin is stable at 9.9, sodium is 141, potassium is 3.6, current creatinine is 0.6 and magnesium is 1.8. Patient continues to be on IV vancomycin per primary service. Pain management per primary service as well. DVT prophylaxis with Eliquis. 10/04/2020 Patient is seen this morning early sitting up in the chair with his back brace on and maintained on 2 L of oxygen with saturation of 94%. Patient denies any shortness of breath. Social work following and plan is for patient to go to [facility] on the [address] for some PT/OT therapy. Will continue to follow along closely with you during hospitalization. Review of systems: Constitutional: No reports of fatigue, fever, or chills Cardiovascular: No reports of chest pain or palpitations Respiratory: No reports of shortness of breath or cough GI: No reports of nausea, vomiting, or diarrhea : No reports of dysuria or retention Neurovascular: reports generalized weakness All medications have been reviewed Objective - Vital Signs Vital signs: Vital Signs Temp 97.7 F 10/04/20 08:27 Pulse 95 10/04/20 08:27 Resp 22 10/04/20 08:27 BP 126/83 10/04/20 08:27 Pulse Ox 94 L 10/04/20 08:27 Intake & Output 10/03/20 10/04/20 10/04/20 18:59 06:59 18:59 Intake Total 1090 Output Total 1200 Balance -110 Intake: Intake, IV Titration 500 Amount Vancomycin 1,750 mg In 500 Sodium Chloride 0.9% 500 ml 500 ml @ 167 mls/hr IVPB Q16H [facility] Rx#: [id number] Oral 590 Output: Urine 1200 Other: Voiding Method Indwelling Catheter Urinal # Voids 3 # Bowel Movements 1 ABP, PAP, CO, CI - Last Documented Arterial Blood Pressure 162/72 - Exam GENERAL: The patient is alert and oriented x3, not in any acute distress. Well developed, well nourished. Currently on 2 L of oxygen via nasal cannula HEENT: Pupils are round and equally reacting to light. EOMI. No scleral icterus. No conjunctival pallor. Normocephalic, atraumatic. No pharyngeal erythema. No thyromegaly. CARDIOVASCULAR: S1 and S2 present. No murmurs, rubs, or gallops. PULMONARY: Chest is clear to auscultation, no wheezing or crackles. ABDOMEN: Soft, obese, nontender, nondistended, normoactive bowel sounds. No palpable organomegaly. MUSCULOSKELETAL: Deferred to orthopedic surgery EXTREMITIES: No cyanosis, clubbing, or pedal edema. NEUROLOGICAL: Gross neurological examination did not reveal any focal deficits. Diffuse weakness SKIN: No rashes. - Labs CBC & Chem 7: 10/03/20 06:02 10/04/20 06:09 Labs: Abnormal Lab Results - Last 24 Hours (Table) 10/03/20 Range/Units 06:02 Carbon Dioxide 38.1 H (21.6-31.8) mmol/L Glucose 116 H (70-110) mg/dL Calcium 8.3 L (8.7-10.3) mg/dL Alkaline Phosphatase 146 H (41-126) U/L Total Protein 4.3 L (6.2-8.2) g/dL Albumin 2.50 L (3.80-4.90) g/dL Albumin/Globulin Ratio 1.39 L (1.60-3.17) g/dL Assessment and Plan Assessment: -Acute encephalopathy - toxic encephalopathy which is resolved at this time sec ondary to pain medications -Acute hypoxic respiratory failure, may be secondary to atelectasis -Possible acute urinary tract infection ruled out, cultures were negative -Chronic hypercapnic respiratory failure secondary to sleep apnea and obesity hypoventilation syndrome -Obesity Hypoventilation syndrome -T9 vertebral body fracture: Patient is status post surgical intervention with orthopedic surgery postop day # 8, valuated by inpatient rehab and not a candidate and may require subacute rehab for continued PT/OT therapy -Right knee strain without any fracture, using immobilizer while out of bed -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 fib patient is presently rate and rate controlled patient does have a pacemaker. Patient is on Eliquis which has been resumed -Hypertension -Obesity -Coronary artery disease PLAN: Patient continues with BiPAP at night and nasal cannula and saturating around 94% on 2 L of oxygen. Patient is alert and oriented 3. Maintained on vancomycin, postoperative antibiotics. He is on Eliquis for anticoagulation. Protonix for GI prophylaxis. Overall prognosis is guarded due to chronic medical conditions including end-stage metastatic lung cancer. Social work following and was evaluated by Dr. Benavides with the possibility of inpatient rehab although is not a candidate and social work is working on [facility] for continued PT/OT therapy. Plan is for discharge to [facility] tomorrow. Patient continues to be extremely weak requiring almost total assist. Will continue to follow along with orthopedic surgery during hospitalization. Thank you for this consultation.
--- NOTE | 2020-10-04 15:33 | P.PN ---
Progress Note - Text Progress Note Date: 10/04/20 Patient was seen and examined his was at bedside. He is doing fairly well he sitting up in his chair currently. He did have an episode earlier today where he was standing and became slightly weak in her left lower extremity states that he kind of "slumped down to the floor". He does not state any pain currently states he is slightly sore in his back when I asked him if he wanted anything imaged or x-rayed he declined. His agreed she stated that he does not need anything imaged at this time. He has been ambulatory since the incident. He did not hit his head or lose consciousness. My team spoke with social work at this time he does have a bad at [facility] and so we will get him discharged today to [facility]. We discussed this with his and him and they both agree the ready to move on.
--- NOTE | 2020-10-04 15:44 | P.DS ---
Providers Date of admission: 09/18/20 13:40 Expected date of discharge: 10/04/20 Attending physician: Carlos Cee DO Consults: 09/18/20 13:41 Consult Physician Urgent Consulting Provider: Shannon Nichols Consult Reason/Comments: medical care Do you want consulting provider notified?: Yes Consult Physician Urgent Consulting Provider: Anthony Cary Consult Reason/Comments: oncological care Do you want consulting provider notified?: Yes 09/19/20 08:43 Consult Physician Routine Consulting Provider: Vito Watts Consult Reason/Comments: Clearance/management for possible surgery Do you want consulting provider notified?: Yes 09/19/20 08:44 Consult Physician Routine Consulting Provider: Oleg Summers Consult Reason/Comments: Clearance/management possible surgery Do you want consulting provider notified?: Yes 10/01/20 11:24 Consult Physician Urgent Consulting Provider: Pedro Benavides Consult Reason/Comments: in patient rehab Do you want consulting provider notified?: Yes Primary care physician: Fredy Rodriguez Hospital Course: Spine Surgery Discharge Summary Note Admission Date: 09/18/2020 Discharge Date: 10/04/2020 Providers: She lists Principal Diagnosis: Pathologic fracture T9-T10 with metastatic lung carcinoma Procedures: T6 to L1 posterior stabilized fusion with decompression for fracture Secondary Diagnoses: -Acute encephalopathy - toxic encephalopathy which is resolved at this time secondary to pain medications -Acute hypoxic respiratory failure, may be secondary to atelectasis -Possible acute urinary tract infection ruled out, cultures were negative -Chronic hypercapnic respiratory failure secondary to sleep apnea and obesity hypoventilation syndrome -Obesity Hypoventilation syndrome -T9 vertebral body fracture: Patient is status post surgical intervention with orthopedic surgery postop day # 8, valuated by inpatient rehab and not a candidate and may require subacute rehab for continued PT/OT therapy -Right knee strain without any fracture, using immobilizer while out of bed -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 fib patient is presently rate and rate controlled patient does have a pacemaker. Patient is on Eliquis which has been resumed -Hypertension -Obesity -Coronary artery diseas Discharge Medications: [See list] Allergies: Reviewed see list Hospital Course: The patient was evaluated preoperatively and found to have the diagnosis of T9- T10 pathologic fractures with metastatic lung carcinoma more obesity failure to thrive failure of THE cervical measures for back pain. They underwent appropriate preoperative care and were willing to undergo the intended procedure. We attempted conservative management which failed. The patient was seen by pulmonology cardiology medicine as well as oncology and cleared for surgery. They underwent a successful T6 to L1 decompression and fusion for stabilization of T9 and 10 fractures, were recovered appropriately and sent to the ICU for brief stay he was extubated on day 1 postoperatively and was subsequently transferred to the floor postoperatively day 2. While on the floor they worked with physical therapy, occupational therapy and nursing to enhance their recovery experience. His pain was much better after surgery and continued to improve daily. He did go through several bouts of hypoxic respiratory failure for which she reviewed needed BiPAP during the day and at night he was never reintubated however. He did struggle to work with physical therapy at first but has been working with them now more more H date. She has been able to ambulate with a walker as well as due to the bedside commode. He is spent most of his days up in the chair attempting to get better with incentive spirometry. His mental status has improved dramatically and he has been alert and oriented over the last couple of days 3. His was at bedside during discharge evaluation and she agrees that he is doing much better and this time for them to have a changes scenery. Their pain was well controlled through their stay and they were started on appropriate medications, DVT ppx modalities, activity and dietary needs. Daily labs were monitored closely, and transfusions were only used when necessary. Medicine as well as other consulting services have made their input and have helped with our team approach and multidisciplinary care. PT milestones have been met and passed and they have made the recommendation of extended care facility for this patient and treating providers agree with this care path. The patient will be discharged home with appropriate medications, instructions and follow-up information and in stable condition. Patient Condition at Discharge: Stable Plan - Discharge Summary Discharge Rx Participant: No New Discharge Prescriptions: No Action Aspirin 81 mg PO Q48H Multivitamins, Thera [Multivitamin (formulary)] 1 tab PO DAILY Tamsulosin [Flomax] 0.4 mg PO DAILY Furosemide [Lasix] 20 mg PO DAILY Spironolactone 25 mg PO DIRECTED Apixaban [Eliquis] 5 mg PO BID carvediloL [Coreg] 3.125 mg PO BID Cyclobenzaprine [Flexeril] 10 mg PO BID PRN PRN Reason: Muscle Spasm Lactulose [Constulose] 10 gm PO DAILY PRN PRN Reason: Constipation oxyCODONE ER [OxyCONTIN] 20 mg PO Q12HR 3 Days #6 tab Magnesium Hydroxide [Milk of Magnesia Concentrate] 2,400 mg PO BID PRN #360 ml PRN Reason: Constipation polyethylene glycoL 3350 [Miralax] 17 gm PO DAILY 30 Days #30 powd.pack Pantoprazole [Protonix] 40 mg PO AC-BRKFST 30 Days #30 tablet.dr Dalton [Senokot] 17.2 mg PO BID 30 Days #120 tab ALPRAZolam [Xanax] 0.25 mg PO TID PRN #10 tab PRN Reason: Anxiety Dexamethasone [Decadron] See Taper PO DIRECTED Discharge Medication List Aspirin 81 mg PO Q48H 11/27/16 [History] Multivitamins, Thera [Multivitamin (formulary)] 1 tab PO DAILY 11/27/16 [History] Furosemide [Lasix] 20 mg PO DAILY 02/19/18 [History] Tamsulosin [Flomax] 0.4 mg PO DAILY 02/19/18 [History] Spironolactone 25 mg PO DIRECTED 09/08/19 [History] Apixaban [Eliquis] 5 mg PO BID 08/22/20 [History] Cyclobenzaprine [Flexeril] 10 mg PO BID PRN 08/22/20 [History] carvediloL [Coreg] 3.125 mg PO BID 08/22/20 [History] Lactulose [Constulose] 10 gm PO DAILY PRN 09/05/20 [History] oxyCODONE ER [OxyCONTIN] 20 mg PO Q12HR 3 Days #6 tab 09/10/20 [Rx] ALPRAZolam [Xanax] 0.25 mg PO TID PRN #10 tab 09/12/20 [Rx] Magnesium Hydroxide [Milk of Magnesia Concentrate] 2,400 mg PO BID PRN #360 ml 09/12/20 [Rx] Pantoprazole [Protonix] 40 mg PO AC-BRKFST 30 Days #30 tablet. 09/12/20 [Rx] Sennosides [Senokot] 17.2 mg PO BID 30 Days #120 tab 09/12/20 [Rx] polyethylene glycoL 3350 [Miralax] 17 gm PO DAILY 30 Days #30 powd.pack 09/12/20 [Rx] Dexamethasone [Decadron] See Taper PO DIRECTED 09/18/20 [History] Follow up Appointment(s)/Referral(s): Fredy Rodriguez III, MD [Primary Care Provider] - 1-2 days [facility], [NON-STAFF] - 1-2 Days Carlos Cee DO [Doctor of Osteopathic Medicine] - 1 Week [facility] [NON-STAFF] - (Please call [facility] if you have questions regarding the TLSO back brace or I-ROM knee brace. ) Patient Instructions/Handouts: Lumbar Spinal Fusion (DC) Activity/Diet/Wound Care/Special Instructions: Patient requires a hospital bed to help alleviate pain due to thoracic fracture and stage IV lung cancer with bone mets. It will also help to alleviate orthopnea caused from CHF. Patient is unable to tolerate laying flat and will require the head of the bed to be elevated >30 degrees most of the time which cannot be done with an ordinary bed. Spine Discharge and Recovery Instructions Date of Surgery: 09/25/2020 Diagnosis: T9-T10 thoracic fractures a B1 Procedure: T6 to L1 posterior stabilized fusion fixation of fracture Medications: See list All medication refills should be obtained through your primary care doctor or your clinic spine surgeon. Please discuss prescription refills at your follow up appointment. Do not call the hospital for medication refills. Dressing: Leave your dressing in place for a total of 3 days post operatively. Then you may remove your dressing and leave open to air. Keep the area clean and if not able to keep area clean, then cover with sterile gauze and tape. Showering: You may shower 3 days after your procedure allowing soap and water to run over incision. Do not scrub. Do not soak. Blot dry. Follow up: Please confirm a follow up appointment with your surgeon 2 weeks post operatively. Please make an appointment to follow up with your PCP in 1-2 weeks after surgery for evaluation 3 phase, 3-week plan POST OP WEEKS 1-3 1. Lifting/carrying/pushing/pulling limited to less than 5 pounds. 2. Do not sit for longer than 15 minutes at one time. Get up and walk around. Prolonged sitting is NOT advised. If you lay down, see if you can tolerate laying down on you front (belly side) 3. Walk for periods of 15 minutes = 1 mile but no longer; do it multiple times times each day. 4.Ice your low back after activity. POST OP WEEKS 3-6 1. Lifting limited to less than 20 pounds. 2. Do not sit for longer than 30 minutes at a time. Frequently change positions. Use a sit-to stand workstation or take frequent breaks from sitting if you have returned to work. 3. Walk for 30 minutes each day. If possible, do these three or more times a day POST OP WEEKS 6+ At your 6-week appointment we will give you a physical therapy referral to focus on a core stabilization and strengthening program. You should also work on leg & buttock strengthening, hamstring & quadriceps stretching, and continue a low impact aerobic activity program such as swimming, walking, or riding a stationary bicycle. During the initial 6 weeks after your surgery, you are at the highest risk of re-injuring your spine. You should generally avoid BLTs (bending, lifting and twisting combination motions) and follow the above guidelines to reduce the chance of reinjury. You can anticipate post op appointments in our office at approximately 3 weeks and 6 weeks after your surgery. INCISION CARE: If your incision is not draining you do NOT need to cover it with a dressing. Keep your incision clean, dry and intact. In most cases, we apply skin glue, jennifer or sutures to the incision at the time of surgery. This will be like a crust or have the appearance of a scab and will fall off in time on its own. The stitches or jennifer need to be removed at 3 weeks post op appointment. You may begin to shower 3 days after surgery (this allows the glue to croft well). However, please avoid scrubbing the incision site or peeling off any of the skin glue. This will ensure optimal healing of your incision. Also, during this time avoid soaking the incision area in water - this includes swimming pools, hot tubs or baths. No ointments, lotions or oils on the incision until your surgeon allows. Leave jennifer, sutures or glue in place. Neurological dysfunction that comes on suddenly can also be a sign of a stroke. Below some common symptoms of a stroke are listed: B - balance difficulty such as sudden onset walking or leaning to one side - NEW E - eye problem such as sudden double vision or trouble seeing on one side - NEW F - Facial weakness or numbness on one side - NEW A - Arm or leg weakness or numbness on one side - NEW S - Slurred speech or difficulty with word finding - NEW T - Time is BRAIN! Call 911 as soon as you recognize these symptoms Diet: Consume a regular diet rich in vegetables and lean protein such as chicken or fish. You should consume in a ratio of approximately 20% fats|40% carbohydrates|40%protein. Vegetables, sweet potatoes, brown rice or quinoa are examples of good carbohydrates. Chips, white bread, cookies and sweets/sugar are examples of bad carbohydrates. Limit your bad carbs, go wild with good carbs. "Life's Simple 7" Guidelines as per [employer] These will help you reclaim your life after surgery and cordwood cutter helper in your recovery, keeping in mind your restrictions. (1) Get Active. Physical activity can help people lose weight, control high blood pressure and cholesterol, feel emotionally better, and sleep better. (2) Control Cholesterol. Avoid a diet high in saturated fat, trans fat, & c holesterol. Limit whole milk & cream, ice cream, butter, egg yolks, processed meats (like sausage and hot dogs), and fatty meats. Choose healthy foods that are low in saturated fat, trans fat and cholesterol which include: Fruits and vegetables, fiber rich grain products (like whole grain pasta and brown rice), lean meat such as chicken, fish, nuts, seeds, and legumes. (3) Eat Better. Eat small portions. Shop at the grocery with a list and do not stray from it. Tips for a healthy diet include: Limit sodium intake to less than 1500mg daily, avoid prepackaged, processed, and fast foods, choose a diet rich in fruits, vegetables, and whole grain, high fiber foods, and limit saturated & cholesterol in your diet. (4) Manage Blood Pressure. If you have high blood pressure, you should have a cuff at home so that you can check your blood pressure regularly. Be sure you have a good cuff. An arm one is generally better than a wrist one. Bring the cuff to a doctor's appointment to validate that the measurements that your cuff are taking are accurate. Take your blood pressure twice daily when you are sitting down and relaxing. Record the numbers in a log and bring this log with you to your doctors' appointments. (5) Lose Weight if your BMI is above 25. A healthy BMI is between 19-25. To calculate Your BMI, you may use a Standard BMI Calculator on the NIH BMI we bsite: <www.nhlbi.nih.gov/guidelines/obesity/BMI/bmicalc.htm>. Weigh oneself daily. If you are overweight, set a goal to lose weight. A pound a week loss if needed is a good target. (6) Reduce Blood Sugar. Limit foods and liquids with "added sugars." (Added sugars include sucrose, fructose, glucose, maltose, dextrose, high fructose corn syrup, corn syrup, concentrated fruit juice and honey). (7) Stop Smoking. If you smoke, quitting smoking is one of the best things that you can do for your health. Smoking increases your risk of heart attack, stroke, and peripheral vascular disease, which is a build-up of plaque in your arteries. Please discard all the cigarettes and lighters in your house. Have a plan for what you will do when you have the urge to smoke. Direct and second- hand smoke shortens your life as well as the lives of your family, friends and others around you. For your health and the health of those around you, please consider quitting! Proper Bending Body Mechanics: Maintain a wide stance with one foot slightly in front of the other. Keep your back straight. Bend utilizing the strength in your hips and knees. Do not bend at the waist. Maintain the lifted object at your waist-level close to your body. Avoid lifting weight that causes immediately pain or pain anywhere in the body afterwards. Smoking/Nicotine If there was ever one thing that you could do to increase your overall health, decrease your risk of cardiovascular problems by about 39% the second you make the choice, it is to STOP SMOKING. Your body's most instant gratification is the second you stop smoking. We have all heard the studies, read the articles but it is true, smoking is extremely bad for your overall health, and moreover it is detrimental to your bone health. Nicotine, IN ANY FORM, kills bone cells, prevents your body from healing fractures, and significantly prolongs healing after surgery. In spine surgery specifically, it increases your risk of not healing your bones to create a fusion and increases your risk of having a revision surgery due to this up to 60%. I know it is hard. I know it feels impossible. But there are ways. Take control of your life. We are here to help you through it. And when you are ready, ask us and we can direct you to help if you desire. Use the START Plan to Quit Smoking (please visit the [employer]org website listed below for more information): S = Set a quit date. Choose a date within the next 2 weeks, so you have enough time to prepare without losing your motivation to quit. If you mainly smoke at work, quit on the weekend, so you have a few days to adjust to the change. T = Tell family, friends, and co-workers that you plan to quit. Let your friends and family in on your plan to quit smoking and tell them you need their support and encouragement to stop. Look for a quit latasha who wants to stop smoking as well. You can help each other get through the rough times. A = Anticipate and plan for the challenges you'll face while quitting. Most people who begin smoking again do so within the first 3 months. You can help yourself make it through by preparing ahead for common challenges, such as nicotine withdrawal and cigarette cravings. R = Remove cigarettes and other tobacco products from your home, car, and work. Throw away all your cigarettes (no emergency pack!), lighters, ashtrays, and matches. Wash your clothes and freshen up anything that smells like smoke. Shampoo your car, clean your drapes and carpet, and steam your furniture. T = Talk to your doctor about getting help to quit. Your doctor can prescribe medication to help with withdrawal and suggest other alternatives. If you can't see a doctor, you can get many products over the counter at your local pharmacy or grocery store, including the nicotine patch, nicotine lozenges, and nicotine gum. Resources for Quitting Smoking: <https://www.[place].gov/documents/mdc/Quit_Tobacco_Resources_for_patients_313 480_7.pdf> Supplementation: Take recommended dosages of Vitamin D and Calcium to help fortify your bones and help them to heal. See your health maintenance packet for dosages and recommended levels. DVT/VTE prophylaxis: You will be given compression stockings from the hospital. Wear these daily for the first two weeks after surgery. You may take them off at night. You may be prescribed a medication to help thin your blood. Take this as directed. If you are not prescribed this medication, early and frequent ambulation has been shown to be the best prophylaxis to deep vein thrombosis and sequelae related to this event. Discharge/Stand Alone Forms: Help In The Home Discharge Disposition: TRANSFER TO SNF/ECF
== END 2020-10-04 17:53 | DRG 456 ==
LOC: EC 11:00 → 4SSUR 13:40 → 5NMEDONC 09-20 13:49 → 2SICU 09-25 09:53 → 5NMEDONC 09-27 17:48
PROVIDERS: ADMIT Orthopaedic Surgery; ATTEND Orthopaedic Surgery
PROC: 0RGA0K1 Fusion of Thoracolumbar Vertebral Joint with Nonautologous Tissue Substitute, Posterior Approach, Posterior Column, Open Approach (ICD-10-PCS; 2020-09-25)
PROC: 0PS404Z Reposition Thoracic Vertebra with Internal Fixation Device, Open Approach (ICD-10-PCS; 2020-09-25)
PROC: 0RG70K1 Fusion of 2 to 7 Thoracic Vertebral Joints with Nonautologous Tissue Substitute, Posterior Approach, Posterior Column, Open Approach (ICD-10-PCS; principal; 2020-09-25 11:15)
DX: M84.58XA Pathological fracture in neoplastic disease, other specified site, initial encounter for fracture (principal); G92 Toxic encephalopathy; J96.21 Acute and chronic respiratory failure with hypoxia; I48.19 Other persistent atrial fibrillation; C79.51 Secondary malignant neoplasm of bone; C34.90 Malignant neoplasm of unspecified part of unspecified bronchus or lung; E66.2 Morbid (severe) obesity with alveolar hypoventilation; J96.12 Chronic respiratory failure with hypercapnia; Z68.41 Body mass index [BMI] 40.0-44.9, adult; Z20.822 Contact with and (suspected) exposure to COVID-19; Z87.891 Personal history of nicotine dependence; W10.9XXA Fall (on) (from) unspecified stairs and steps, initial encounter; Z79.01 Long term (current) use of anticoagulants; Z92.3 Personal history of irradiation; I25.10 Atherosclerotic heart disease of native coronary artery without angina pectoris; I25.2 Old myocardial infarction; M19.90 Unspecified osteoarthritis, unspecified site; Z82.49 Family history of ischemic heart disease and other diseases of the circulatory system; Z82.3 Family history of stroke; K59.00 Constipation, unspecified; M25.561 Pain in right knee; I11.0 Hypertensive heart disease with heart failure; M47.816 Spondylosis without myelopathy or radiculopathy, lumbar region; Z95.0 Presence of cardiac pacemaker; Z95.5 Presence of coronary angioplasty implant and graft; I50.9 Heart failure, unspecified; J44.9 Chronic obstructive pulmonary disease, unspecified; R55 Syncope and collapse; R62.7 Adult failure to thrive; G89.3 Neoplasm related pain (acute) (chronic); E78.5 Hyperlipidemia, unspecified; J84.10 Pulmonary fibrosis, unspecified; Z74.01 Bed confinement status; Z79.82 Long term (current) use of aspirin; Z96.653 Presence of artificial knee joint, bilateral; S83.411A Sprain of medial collateral ligament of right knee, initial encounter
CPT/HCPCS: 36415; 36600; 70450; 70460; 71045; 72070; 72125; 72128; 72131; 72170; 74018; 80048; 80053; 80202; 80306; 80320; 81001; 82565; 82805; 83735; 84100; 84132; 84484; 85025; 85610; 85730; 86850; 86900; 86901; 87070; 87086; 87205; 87635; 93005; 93306; 94002; 94003; 94660; 96374; 96376; 99285

== ENCOUNTER 2020-10-31 10:58 | Inpatient (IN) | payer MEDICARE ==
[2020-10-31] MEDS ORDERED: SODIUM CHLORIDE 0.9% 1,000 ML IV ONE (11:53)
[2020-10-31 12:10] LABS: Anisocytosis Slight; Basophils % (A) 0 %; Eosinophils # (A) 0.1 k/uL (0-0.7); Eosinophils % (A) 0 %; HCT 37.1 % (39.0-53.0); HGB 11.3 gm/dL (13.0-17.5); Hypochromasia Moderate; Lymphocytes # (A) 2.2 k/uL (1.0-4.8); Lymphocytes % (A) 11 %; MCH 28.6 pg (25.0-35.0); MCHC 30.4 g/dL (31.0-37.0); MCV 94.1 fL (80.0-100.0); Mean Platelet Volume 8.2; Monocytes # (A) 0.7 k/uL (0-1.0); Monocytes % (A) 3 %; Neutrophils # (A) 16.9 k/uL (1.3-7.7); Neutrophils % (A) 84 %; Platelet Count 231 k/uL (150-450); Poikilocytosis Slight; RBC 3.95 m/uL (4.30-5.90); RDW 16.9 % (11.5-15.5); WBC 20.3 k/uL (3.8-10.6)
[2020-10-31 12:21] LABS: ALT 58 U/L (4-49); AST 119 U/L (17-59); African American GFR (CKD) 51 (>60 ml/min/1.73 sqM); Albumin 2.5 g/dL (3.5-5.0); Alkaline Phosphatase 309 U/L (38-126); Anion Gap 5 mmol/L; Blood Urea Nitrogen 48 mg/dL (9-20); Calcium 8.1 mg/dL (8.4-10.2); Carbon Dioxide 34 mmol/L (22-30); Chloride 92 mmol/L (98-107); Creatine Kinase <20 U/L (55-170); Glucose 150 mg/dL (74-99); Non-African American GFR(CKD) 44 (>60 ml/min/1.73 sqM); Potassium 5.4 mmol/L (3.5-5.1); Sodium 131 mmol/L (137-145); Total Bilirubin 0.7 mg/dL (0.2-1.3); Total Protein 5.8 g/dL (6.3-8.2)
[2020-10-31 12:31] LABS: Lactic Acid, Venous 3.2 mmol/L (0.7-2.0)
[2020-10-31 12:38] LABS: INR 1.2 (<1.2); Partial Thromboplastin Time 27.8 sec (22.0-30.0); Prothrombin Time 12.8 sec (9.0-12.0)
--- NOTE | 2020-10-31 12:47 | CT ---
EXAMINATION TYPE: CT brain cspine wo con DATE OF EXAM: 10/31/2020 COMPARISON: CT brain October 01, 2020. CT cervical spine September 18, 2020. PET/CT June 15, 2020 HISTORY: altered mental status, weakness, neck pain. History of lung cancer. CT DLP: 1847 mGycm. Automated Exposure Control for Dose Reduction was Utilized. TECHNIQUE: CT scan of the head and cervical spine are performed without contrast. FINDINGS: There is no acute intracranial hemorrhage or midline shift identified. Mild to moderate v entricular and sulcal prominence greatest over the bilateral frontal and temporal lobes is redemonstr ated. Szymanski-white matter differentiation fairly well-maintained. The globes are intact and the visual ized sinuses are clear. The calvarium is intact. Cervical spine is visualized in its entirety from C1 through upper thoracic levels and demonstrates s table and satisfactory alignment without evidence of acute fracture or dislocation. Prevertebral sof t tissue remains within normal limits. The C1-C2 articulation remains within normal limits on the co kenia images. Vertebral body heights are maintained. Moderate disc space narrowing and spurring C6-C 7 level is redemonstrated. Mild to moderate multilevel anterior lateral spurring is again seen. Poste rior spurring effaces the anterior thecal sac at C6-C7 level sagittal image 42 and confirmed on axial images similar to prior study. Axial images demonstrate multilevel uncovertebral facet degenerative changes contributing to multilevel bilateral neural foraminal narrowing. Thyroid gland appears within normal limits. Visualized lung apices show areas of groundglass opacity and scar like opacities jessee lar to prior. IMPRESSION: 1. There is no acute fracture or dislocation evident in the cervical spine. 2. No acute intracranial hemorrhage or midline shift is seen. No significant change from prior studies.
--- NOTE | 2020-10-31 12:50 | XR ---
E was coiled in the EXAMINATION TYPE: XR chest 2V DATE OF EXAM: 10/31/2020 COMPARISON: 09/29/2020 HISTORY: Shortness of breath TECHNIQUE: Frontal and lateral views of the chest are obtained. FINDINGS: Scattered nodules are redemonstrated. Infiltrate left upper lobe persists although is improved. No evidence for pneumothorax. Clemons rods are in place. Heart size is stable. Mediastinal structures are stable and grossly unremarkable. No evidence for hilar prominence. Degenerative changes dorsal spine. IMPRESSION: 1. Scattered nodules are redemonstrated. Infiltrate left upper lobe persists although is improved.
[2020-10-31 13:02] LABS: Amorphous Sediment,Urine Rare /hpf; Appearance,Urine Cloudy (Clear); Bacteria,Urine Occasional /hpf; Bilirubin,Urine Negative (Negative); Blood,Urine Moderate (Negative); Color,Urine Yellow; Glucose,Urine (UA) Negative (Negative); Hyaline Casts,Urine 2 /lpf (0-2); Ketones,Urine Negative (Negative); Leukocyte Esterase,Urine Large (Negative); Mucus,Urine Rare /hpf; Nitrite,Urine Positive (Negative); PH, Urine 5.5 (5.0-8.0); Protein,Urine Trace (Negative); RBC,Urine 16 /hpf (0-5); Specific Gravity,Urine 1.011 (1.001-1.035); Urobilinogen,Urine <2.0 mg/dL (<2.0); WBC,Urine >182 /hpf (0-5)
[2020-10-31] MEDS: SODIUM CHLORIDE 0.9% 1,000 ML IV SCH (13:08)
[2020-10-31] MEDS ORDERED: cefTRIAXone IN SWFI 1,000 MG/10 ML SYRINGE IVP STA (13:25)
--- NOTE | 2020-10-31 14:17 | ED ---
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 Patient was in Dr. Cr office and found to be hypotensive, weak with altered mental status. Daughter states that he has been at [facility] for rehab since his back surgery a few weeks ago. She reports that the patient has had a very poor appetite and he has not been up out of bed for physical therapy for many days. She is worried that he is decompensating. Patient will need significant help eating due to his tremors. He gets very disoriented. Denies any fevers. No known head trauma or falls. The patient has seen Dr. Cee once a week since his back surgery. Reports that the incision site is healing however slow. No known redness or pustular drainage from the site. The patient has no complaints at this time other than generalized weakness. No cough or chest pain. No abdominal pain. N other alleviating, Perceptin or modifying factors - Related Data Home Medications Medication Instructions Recorded Confirmed Multivitamins, Thera [Multivitamin 1 tab PO DAILY 11/27/16 10/31/20 (formulary)] Tamsulosin [Flomax] 0.4 mg PO DAILY 02/19/18 10/31/20 Apixaban [Eliquis] 5 mg PO BID 08/22/20 10/31/20 carvediloL [Coreg] 3.125 mg PO BID 08/22/20 10/31/20 Lactulose [Constulose] 10 gm PO DAILY PRN 09/05/20 10/31/20 Ascorbic Acid [Vitamin C] 2,000 mg PO HS 10/31/20 10/31/20 Calcium Carbonate [Calcium] 1,200 mg PO HS 10/31/20 10/31/20 Cholecalciferol [Vitamin D3 (25 25 mcg PO HS 10/31/20 10/31/20 Mcg = 1000 Iu)] Ensure Complete 1 can PO TID-W/MEALS 10/31/20 10/31/20 Furosemide [Lasix] 20 mg PO DAILY@0600 10/31/20 10/31/20 Mag Hydrox/Aluminum Hyd/Simeth 30 ml PO Q4H PRN 10/31/20 10/31/20 [Mylanta Maximum Strength Liq] Spironolactone [Aldactone] 25 mg PO DAILY 10/31/20 10/31/20 Z-Guard 1 applic TOPICAL Q12H 10/31/20 10/31/20 oxyCODONE HCL [OxyIR] 5 mg PO Q6H PRN 10/31/20 10/31/20 Previous Rx's Medication Instructions Recorded oxyCODONE ER [OxyCONTIN] 20 mg PO Q12HR 3 Days #6 tab 09/10/20 Sennosides [Senokot] 17.2 mg PO BID 30 Days #120 tab 09/12/20 Gabapentin [Neurontin] 300 mg PO TID cap 10/04/20 amLODIPine [Norvasc] 5 mg PO DAILY tab 10/04/20 Allergies Allergy/AdvReac Type Severity Reaction Status Date / Time hydrocodone [From Vicodin] AdvReac Hallucinati Verified 10/31/20 13:14 ons [id number] Reductase AdvReac MUSCLE PAIN Verified 10/31/20 13:14 Inhibitor Review of Systems ROS Statement: Those systems with pertinent positive or pertinent negative responses have been documented in the HPI. ROS Other: All systems not noted in ROS Statement are negative. Past Medical History Past Medical History: Atrial Fibrillation, Coronary Artery Disease (CAD), Cancer, Heart Failure, Hypertension, Myocardial Infarction (DE), Osteoarthritis (OA), Prostate Disorder, Respiratory Disorder Additional Past Medical History / Comment(s): Pt recently admtiited to [facility] on 08/22/20 with intractable low back pain with kyphoplasty T10 with biopsy (pt has not been given results/abnormal cat scan and pt told possible mets to bone. Pt recently in [facility] ER on 09/03/20 with constipation/colitis. Other hx: Bilateral lungs necrotizing granulomas diagnosed in [address] scan every 4- 6 mon ths and is followed by Dr. 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 Last Myocardial Infarction Date:: mar 2018 History of Any Multi-Drug Resistant Organisms: None Reported Past Surgical History: Back Surgery, Heart Catheterization With Stent, Joint Replacement, Orthopedic Surgery, Pacemaker Additional Past Surgical History / Comment(s): 08/2019 kyphoplasty/bx T10, 09/2019 bronch with bx/brushings/BAL, 2017 pacemaker, bilateral knee arthroscopies, bilateral total knee replacements, R knee surgery for patellar tendon tear, PCI with stents, colonoscopy, bilateral cataract removals. Past Anesthesia/Blood Transfusion Reactions: Motion Sickness Date of Last Stent Placement:: 03/23 Type of Cardiac Device: Permanent Pacemaker Device Placement Date:: 02/20 Past Psychological History: No Psychological Hx Reported Smoking Status: Former smoker Past Alcohol Use History: Rare Past Drug Use History: None Reported - Past Family History Sister(s) Family Medical History: Cancer Brother(s) Family Medical History: Cancer Additional Family Medical History / Comment(s): 3 brothers cancer Father Family Medical History: Coronary Artery Disease (CAD), CVA/TIA, Myocardial Infarction (DE) Additional Family Medical History / Comment(s): Father had TIAs and MIs. He between the ages of 62-68yrs from what pt believes was a DE Mother Family Medical History: Myocardial Infarction (DE) Additional Family Medical History / Comment(s): Mother of a DE at the age of 88yrs. General Exam Limitations: no limitations General appearance: alert, in no apparent distress Head exam: Present: atraumatic, normocephalic, normal inspection Eye exam: Present: normal appearance, PERRL, EOMI. Absent: scleral icterus, conjunctival injection, periorbital swelling ENT exam: Present: normal exam, mucous membranes dry Neck exam: Present: normal inspection. Absent: tenderness, meningismus, lymphadenopathy Respiratory exam: Present: normal lung sounds bilaterally. Absent: respiratory distress, wheezes, rales, rhonchi, stridor Cardiovascular Exam: Present: regular rate, normal rhythm, normal heart sounds. Absent: systolic murmur, diastolic murmur, rubs, gallop, clicks GI/Abdominal exam: Present: soft, normal bowel sounds. Absent: distended, tende rness, guarding, rebound, rigid Extremities exam: Present: normal capillary refill, other (knee immobilizer right knee). Absent: tenderness, pedal edema, joint swelling, calf tenderness Back exam: Present: other (incision is clean, dry and intact) Neurological exam: Present: alert, oriented X3, CN II-XII intact Psychiatric exam: Present: normal affect, normal mood Skin exam: Present: warm, dry, intact, normal color. Absent: rash Course Vital Signs 10/31/20 10/31/20 10/31/20 11:05 11:29 13:13 Temperature 98.2 F Pulse Rate 83 89 71 Respiratory 18 16 16 Rate Blood Pressure 72/46 94/57 109/63 O2 Sat by Pulse 97 96 95 Oximetry 10/31/20 10/31/20 10/31/20 15:54 17:47 20:03 Temperature Pulse Rate 89 84 87 Respiratory 16 18 16 Rate Blood Pressure 117/83 108/92 97/63 O2 Sat by Pulse 95 95 94 L Oximetry 11/01/20 11/01/20 05:46 07:51 Temperature Pulse Rate 69 75 Respiratory 16 18 Rate Blood Pressure 77/46 100/56 O2 Sat by Pulse 98 96 Oximetry EKG Findings - EKG Comments: EKG Findings:: EKG demonstrates normal sinus rhythm with a ventricular rate of 74. PAC present. WV interval 126. QRS 82. QTC 410. No acute ST segment elevations or depressions Medical Decision Making - Medical Decision Making Upon arrival the patient is placed into room 6. He is notably hypotensive upon arrival with a blood pressure of 72/46. Patient is placed in bed and a peripheral IV is started. He is given a 2 L bolus of normal saline. Laboratory studies were conducted. White count of 20.3. Sodium 131. Potassium 5.4. Creatinine 1.5 from patient baseline of 0.6. Lactic acid 3.2. Urinalysis demonstrates UTI with occasional bacteria. Blood cultures are obtained. Patient initiated on Rocephin. Patient is continued on 130 mL of saline per hour. CT of the patient's brain is performed which demonstrates no acute fracture or dislocation cervical spine. No acute intracranial hemorrhage. Chest x-ray demonstrates multiple pulmonary nodules known to the patient. Did recommend admission. Spoke with Dr. Maldonado who accepted admission. Patient currently awaiting a bed on the floor. - Lab Data Result diagrams: 11/03/20 08:26 11/03/20 08:26 Lab Results 10/31/20 10/31/20 10/31/20 Range/Units 11:57 11:57 11:57 WBC 20.3 H (3.8-10.6) k/uL RBC 3.95 L (4.30-5.90) m/uL Hgb 11.3 L (13.0-17.5) gm/dL Hct 37.1 L (39.0-53.0) % MCV 94.1 (80.0-100.0) fL MCH 28.6 (25.0-35.0) pg MCHC 30.4 L (31.0-37.0) g/dL RDW 16.9 H (11.5-15.5) % Plt Count 231 (150-450) k/uL MPV 8.2 Neutrophils % 84 % Lymphocytes % 11 % Monocytes % 3 % Eosinophils % 0 % Basophils % 0 % Neutrophils # 16.9 H (1.3-7.7) k/uL Lymphocytes # 2.2 (1.0-4.8) k/uL Monocytes # 0.7 (0-1.0) k/uL Eosinophils # 0.1 (0-0.7) k/uL Basophils # 0.0 (0-0.2) k/uL Hypochromasia Moderate Poikilocytosis Slight Anisocytosis Slight PT 12.8 H (9.0-12.0) sec INR 1.2 H (<1.2) APTT 27.8 (22.0-30.0) sec Sodium (137-145) mmol/L Potassium (3.5-5.1) mmol/L Chloride (98-107) mmol/L Carbon Dioxide (22-30) mmol/L Anion Gap mmol/L BUN (9-20) mg/dL Creatinine (0.66-1.25) mg/dL Est GFR (CKD-EPI)AfAm (>60 ml/min/1.73 sqM) Est GFR (CKD-EPI)NonAf (>60 ml/min/1.73 sqM) Glucose (74-99) mg/dL Lactic Ac Sepsis Rflx Plasma Lactic Acid [place] (0.7-2.0) mmol/L Calcium (8.4-10.2) mg/dL Total Bilirubin (0.2-1.3) mg/dL AST (17-59) U/L ALT (4-49) U/L Alkaline Phosphatase (38-126) U/L Ammonia (<30) umol/L Creatine Kinase (55-170) U/L Troponin I (0.000-0.034) ng/mL Total Protein (6.3-8.2) g/dL Albumin (3.5-5.0) g/dL Urine Color Yellow Urine Appearance Cloudy (Clear) Urine pH 5.5 (5.0-8.0) Ur Specific [place] 1.011 (1.001-1.035) Urine Protein Trace H (Negative) Urine Glucose (UA) Negative (Negative) Urine Ketones Negative (Negative) Urine Blood Moderate H (Negative) Urine Nitrite Positive (Negative) Urine Bilirubin Negative (Negative) Urine Urobilinogen <2.0 (<2.0) mg/dL Ur Leukocyte Esterase Large H (Negative) Urine RBC 16 H (0-5) /hpf Urine WBC >182 H (0-5) /hpf Urine WBC Clumps Many H (None) /hpf Amorphous Sediment Rare H (None) /hpf Urine Bacteria Occasional H (None) /hpf Hyaline Casts 2 (0-2) /lpf Urine Mucus Rare H (None) /hpf Influenza Type A (PCR) (Not Detectd) Influenza Type B (PCR) (Not Detectd) RSV (PCR) (Not Detectd) SARS-CoV-2 (PCR) (Not Detectd) 10/31/20 10/31/20 10/31/20 Range/Units 11:57 11:57 11:57 WBC (3.8-10.6) k/uL RBC (4.30-5.90) m/uL Hgb (13.0-17.5) gm/dL Hct (39.0-53.0) % MCV (80.0-100.0) fL MCH (25.0-35.0) pg MCHC (31.0-37.0) g/dL RDW (11.5-15.5) % Plt Count (150-450) k/uL MPV Neutrophils % % Lymphocytes % % Monocytes % % Eosinophils % % Basophils % % Neutrophils # (1.3-7.7) k/uL Lymphocytes # (1.0-4.8) k/uL Monocytes # (0-1.0) k/uL Eosinophils # (0-0.7) k/uL Basophils # (0-0.2) k/uL Hypochromasia Poikilocytosis Anisocytosis PT (9.0-12.0) sec INR (<1.2) APTT (22.0-30.0) sec Sodium 131 L (137-145) mmol/L Potassium 5.4 H (3.5-5.1) mmol/L Chloride 92 L (98-107) mmol/L Carbon Dioxide 34 H (22-30) mmol/L Anion Gap 5 mmol/L BUN 48 H (9-20) mg/dL Creatinine 1.50 H (0.66-1.25) mg/dL Est GFR (CKD-EPI)AfAm 51 (>60 ml/min/1.73 sqM) Est GFR (CKD-EPI)NonAf 44 (>60 ml/min/1.73 sqM) Glucose 150 H (74-99) mg/dL Lactic Ac Sepsis Rflx Plasma Lactic Acid [place] 3.2 H* (0.7-2.0) mmol/L Calcium 8.1 L (8.4-10.2) mg/dL Total Bilirubin 0.7 (0.2-1.3) mg/dL AST 119 H (17-59) U/L ALT 58 H (4-49) U/L Alkaline Phosphatase 309 H (38-126) U/L Ammonia <9 (<30) umol/L Creatine Kinase <20 L (55-170) U/L Troponin I <0.012 (0.000-0.034) ng/mL Total Protein 5.8 L (6.3-8.2) g/dL Albumin 2.5 L (3.5-5.0) g/dL Urine Color Urine Appearance (Clear) Urine pH (5.0-8.0) Ur Specific [place] (1.001-1.035) Urine Protein (Negative) Urine Glucose (UA) (Negative) Urine Ketones (Negative) Urine Blood (Negative) Urine Nitrite (Negative) Urine Bilirubin (Negative) Urine Urobilinogen (<2.0) mg/dL Ur Leukocyte Esterase (Negative) Urine RBC (0-5) /hpf Urine WBC (0-5) /hpf Urine WBC Clumps (None) /hpf Amorphous Sediment (None) /hpf Urine Bacteria (None) /hpf Hyaline Casts (0-2) /lpf Urine Mucus (None) /hpf Influenza Type A (PCR) (Not Detectd) Influenza Type B (PCR) (Not Detectd) RSV (PCR) (Not Detectd) SARS-CoV-2 (PCR) (Not Detectd) 10/31/20 10/31/20 Range/Units 12:31 13:05 WBC (3.8-10.6) k/uL RBC (4.30-5.90) m/uL Hgb (13.0-17.5) gm/dL Hct (39.0-53.0) % MCV (80.0-100.0) fL MCH (25.0-35.0) pg MCHC (31.0-37.0) g/dL RDW (11.5-15.5) % Plt Count (150-450) k/uL MPV Neutrophils % % Lymphocytes % % Monocytes % % Eosinophils % % Basophils % % Neutrophils # (1.3-7.7) k/uL Lymphocytes # (1.0-4.8) k/uL Monocytes # (0-1.0) k/uL Eosinophils # (0-0.7) k/uL Basophils # (0-0.2) k/uL Hypochromasia Poikilocytosis Anisocytosis PT (9.0-12.0) sec INR (<1.2) APTT (22.0-30.0) sec Sodium (137-145) mmol/L Potassium (3.5-5.1) mmol/L Chloride (98-107) mmol/L Carbon Dioxide (22-30) mmol/L Anion Gap mmol/L BUN (9-20) mg/dL Creatinine (0.66-1.25) mg/dL Est GFR (CKD-EPI)AfAm (>60 ml/min/1.73 sqM) Est GFR (CKD-EPI)NonAf (>60 ml/min/1.73 sqM) Glucose (74-99) mg/dL Lactic Ac Sepsis Rflx Y Plasma Lactic Acid [place] (0.7-2.0) mmol/L Calcium (8.4-10.2) mg/dL Total Bilirubin (0.2-1.3) mg/dL AST (17-59) U/L ALT (4-49) U/L Alkaline Phosphatase (38-126) U/L Ammonia (<30) umol/L Creatine Kinase (55-170) U/L Troponin I (0.000-0.034) ng/mL Total Protein (6.3-8.2) g/dL Albumin (3.5-5.0) g/dL Urine Color Urine Appearance (Clear) Urine pH (5.0-8.0) Ur Specific [place] (1.001-1.035) Urine Protein (Negative) Urine Glucose (UA) (Negative) Urine Ketones (Negative) Urine Blood (Negative) Urine Nitrite (Negative) Urine Bilirubin (Negative) Urine Urobilinogen (<2.0) mg/dL Ur Leukocyte Esterase (Negative) Urine RBC (0-5) /hpf Urine WBC (0-5) /hpf Urine WBC Clumps (None) /hpf Amorphous Sediment (None) /hpf Urine Bacteria (None) /hpf Hyaline Casts (0-2) /lpf Urine Mucus (None) /hpf Influenza Type A (PCR) Not Detected (Not Detectd) Influenza Type B (PCR) Not Detected (Not Detectd) RSV (PCR) Not Detected (Not Detectd) SARS-CoV-2 (PCR) Not Detected (Not Detectd) Disposition Clinical Impression: Dehydration, ONEL (acute kidney injury), Weakness, Leukocytosis, UTI (urinary tract infection), Hypotension Disposition: ADMITTED IP TO THIS [facility] Condition: Stable Is patient prescribed a controlled substance at d/c from ED?: No Decision to Admit Reason: Admit from EC Decision Date: 10/31/20 Decision Time: 14:17
[2020-10-31] MEDS ORDERED: NALOXONE 0.4 MG/ML 1 ML VIAL IV PRN (14:18)
--- NOTE | 2020-10-31 17:52 | P.HPIM ---
History of Present Illness 74-year-old male came into emergency department with compensative generalized weakness patient is unable to provide any history to me as patient is severely encephalopathic although patient upon further questioning does answer questions appropriately. Patient has a severe myoclonic activity secondary to severe encephalopathy. Patient does have acute renal failure with elevated creatinine of 1.5 with baseline being normal patient is also on diuretic therapy. Patient had leukocytosis no fever at this time. Patient has highly elevated red blood cell count of 20,000. Urine is significantly abnormal patient was started on Rocephin. 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 Patient subsequently had pathological fracture patient had a surgery for that and was subsequently discharged to subacute rehabilitation. Patient was not started on any c hemotherapy as patient is needing rehabilitation at this time. Patient is unable to much of history. Patient is also hyponatremic with elevated potassium. Patient the had a chest x-ray did not show any significant abnormality CT of the head and cervical spine did not show any intracranial bleed or midline shift her metastatic lesions that were evident. Patient was hyperkalemic as well. Troponins are negative. Review of Systems Except those mentioned above rest of the review of systems are negative unable to obtain much of the review of systems because of his overall clinical condition Past Medical History Past Medical History: Atrial Fibrillation, Coronary Artery Disease (CAD), Cancer, Heart Failure, Hypertension, Myocardial Infarction ([place]), Osteoarthritis (OA), Prostate Disorder, Respiratory Disorder Additional Past Medical History / Comment(s): Pt recently admtiited to [facility] on 08/22/20 with intractable low back pain with kyphoplasty T10 with biopsy (pt has not been given results/abnormal cat scan and pt told possible mets to bone. Pt recently in [facility] ER on 09/03/20 with constipation/colitis. 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 Last Myocardial Infarction Date:: mar 2018 History of Any Multi-Drug Resistant Organisms: None Reported Past Surgical History: Back Surgery, Heart Catheterization With Stent, Joint Replacement, Orthopedic Surgery, Pacemaker Additional Past Surgical History / Comment(s): 08/2019 kyphoplasty/bx T10, 09/2019 bronch with bx/brushings/BAL, 2017 pacemaker, bilateral knee arthroscopies, bilateral total knee replacements, R knee surgery for patellar tendon tear, PCI with stents, colonoscopy, bilateral cataract removals. Past Anesthesia/Blood Transfusion Reactions: Motion Sickness Date of Last Stent Placement:: 03/23 Type of Cardiac Device: Permanent Pacemaker Device Placement Date:: 02/20 Past Psychological History: No Psychological Hx Reported Smoking Status: Former smoker Past Alcohol Use History: Rare Past Drug Use History: None Reported - Past Family History Sister(s) Family Medical History: Cancer Brother(s) Family Medical History: Cancer Additional Family Medical History / Comment(s): 3 brothers cancer Father Family Medical History: Coronary Artery Disease (CAD), CVA/TIA, Myocardial Infarction ([place]) Additional Family Medical History / Comment(s): Father had TIAs and MIs. He between the ages of 62-68yrs from what pt believes was a [place] Mother Family Medical History: Myocardial Infarction ([place]) Additional Family Medical History / Comment(s): Mother of a [place] at the age of 88yrs. Medications and Allergies Home Medications Medication Instructions Recorded Confirmed Type Multivitamins, Thera [Multivitamin 1 tab PO DAILY 11/27/16 10/31/20 History (formulary)] Tamsulosin [Flomax] 0.4 mg PO DAILY 02/19/18 10/31/20 History Apixaban [Eliquis] 5 mg PO BID 08/22/20 10/31/20 History carvediloL [Coreg] 3.125 mg PO BID 08/22/20 10/31/20 History Lactulose [Constulose] 10 gm PO DAILY PRN 09/05/20 10/31/20 History oxyCODONE ER [OxyCONTIN] 20 mg PO Q12HR 3 Days #6 tab 09/10/20 10/31/20 Rx Sennosides [Senokot] 17.2 mg PO BID 30 Days #120 tab 09/12/20 10/31/20 Rx Gabapentin [Neurontin] 300 mg PO TID cap 10/04/20 10/31/20 Rx amLODIPine [Norvasc] 5 mg PO DAILY tab 10/04/20 10/31/20 Rx Ascorbic Acid [Vitamin C] 2,000 mg PO HS 10/31/20 10/31/20 History Calcium Carbonate [Calcium] 1,200 mg PO HS 10/31/20 10/31/20 History Cholecalciferol [Vitamin D3 (25 25 mcg PO HS 10/31/20 10/31/20 History Mcg = 1000 Iu)] Ensure Complete 1 can PO TID-W/MEALS 10/31/20 10/31/20 History Furosemide [Lasix] 20 mg PO DAILY@0600 10/31/20 10/31/20 History Mag Hydrox/Aluminum Hyd/Simeth 30 ml PO Q4H PRN 10/31/20 10/31/20 History [Mylanta Maximum Strength Liq] Spironolactone [Aldactone] 25 mg PO DAILY 10/31/20 10/31/20 History Z-Guard 1 applic TOPICAL Q12H 10/31/20 10/31/20 History oxyCODONE HCL [OxyIR] 5 mg PO Q6H PRN 10/31/20 10/31/20 History Allergies Allergy/AdvReac Type Severity Reaction Status Date / Time hydrocodone [From Vicodin] AdvReac Hallucinati Verified 10/31/20 13:14 ons Qioeloe-Cyp-Jpf Reductase AdvReac MUSCLE PAIN Verified 10/31/20 13:14 Inhibitor Physical Exam Vitals: Vital Signs Temp Pulse Resp BP Pulse Ox 10/31/20 15:54 89 16 117/83 95 10/31/20 13:13 71 16 109/63 95 10/31/20 11:29 89 16 94/57 96 10/31/20 11:05 98.2 F 83 18 72/46 97 Intake and Output 10/31/20 10/31/20 10/31/20 06:59 14:59 22:59 Other: Weight 127.006 kg PHYSICAL EXAMINATION: GENERAL: Patient is drowsy with myoclonic jerking, not in any acute distress. Well developed, well nourished. Patient although did lose his weight significantly compared to his previous hospital physicians HEENT: Pupils are round and equally reacting to light. EOMI. No scleral icterus. No conjunctival pallor. Normocephalic, atraumatic. No pharyngeal erythema. No thyromegaly. Patient does have droopy eyelids CARDIOVASCULAR: S1 and S2 present. No murmurs, rubs, or gallops. PULMONARY: Chest is clear to auscultation, no wheezing or crackles. ABDOMEN: Soft, nontender, nondistended, normoactive bowel sounds. No palpable organomegaly. MUSCULOSKELETAL: No joint swelling or deformity. EXTREMITIES: No cyanosis, clubbing, or pedal edema. NEUROLOGICAL: Unable to assess patient has significant myoclonic jerks SKIN: No rashes. Results CBC & Chem 7: 10/31/20 11:57 10/31/20 11:57 Labs: Abnormal Lab Results - Last 24 Hours (Table) 10/31/20 10/31/20 10/31/20 Range/Units 11:57 11:57 11:57 WBC 20.3 H (3.8-10.6) k/uL RBC 3.95 L (4.30-5.90) m/uL Hgb 11.3 L (13.0-17.5) gm/dL Hct 37.1 L (39.0-53.0) % MCHC 30.4 L (31.0-37.0) g/dL RDW 16.9 H (11.5-15.5) % Neutrophils # 16.9 H (1.3-7.7) k/uL PT 12.8 H (9.0-12.0) sec INR 1.2 H (<1.2) Sodium (137-145) mmol/L Potassium (3.5-5.1) mmol/L Chloride (98-107) mmol/L Carbon Dioxide (22-30) mmol/L BUN (9-20) mg/dL Creatinine (0.66-1.25) mg/dL Glucose (74-99) mg/dL Plasma Lactic Acid Franklyn (0.7-2.0) mmol/L Calcium (8.4-10.2) mg/dL AST (17-59) U/L ALT (4-49) U/L Alkaline Phosphatase (38-126) U/L Creatine Kinase (55-170) U/L Total Protein (6.3-8.2) g/dL Albumin (3.5-5.0) g/dL Urine Protein Trace H (Negative) Urine Blood Moderate H (Negative) Ur Leukocyte Esterase Large H (Negative) Urine RBC 16 H (0-5) /hpf Urine WBC >182 H (0-5) /hpf Urine WBC Clumps Many H (None) /hpf Amorphous Sediment Rare H (None) /hpf Urine Bacteria Occasional H (None) /hpf Urine Mucus Rare H (None) /hpf 10/31/20 10/31/20 10/31/20 Range/Units 11:57 11:57 15:13 WBC (3.8-10.6) k/uL RBC (4.30-5.90) m/uL Hgb (13.0-17.5) gm/dL Hct (39.0-53.0) % MCHC (31.0-37.0) g/dL RDW (11.5-15.5) % Neutrophils # (1.3-7.7) k/uL PT (9.0-12.0) sec INR (<1.2) Sodium 131 L (137-145) mmol/L Potassium 5.4 H (3.5-5.1) mmol/L Chloride 92 L (98-107) mmol/L Carbon Dioxide 34 H (22-30) mmol/L BUN 48 H (9-20) mg/dL Creatinine 1.50 H (0.66-1.25) mg/dL Glucose 150 H (74-99) mg/dL Plasma Lactic Acid Franklyn 3.2 H* 2.8 H* (0.7-2.0) mmol/L Calcium 8.1 L (8.4-10.2) mg/dL AST 119 H (17-59) U/L ALT 58 H (4-49) U/L Alkaline Phosphatase 309 H (38-126) U/L Creatine Kinase <20 L (55-170) U/L Total Protein 5.8 L (6.3-8.2) g/dL Albumin 2.5 L (3.5-5.0) g/dL Urine Protein (Negative) Urine Blood (Negative) Ur Leukocyte Esterase (Negative) Urine RBC (0-5) /hpf Urine WBC (0-5) /hpf Urine WBC Clumps (None) /hpf Amorphous Sediment (None) /hpf Urine Bacteria (None) /hpf Urine Mucus (None) /hpf Assessment and Plan Plan: -Severe toxic and metabolic encephalopathy: Toxic encephalopathy secondary to opiates in with renal failure and patient patient is on long-acting opiates. Patient may have urinary tract infection as well patient will be continued on Ro cephin opiates will be discontinued neurology will be consulted EEG will be ordered patient may have some metabolic encephalopathy from dehydration as well -Acute renal failure: Prerenal azotemia secondary to dehydration which is secondary to diuretics, diuretics will be held patient had a normal ejection fraction the past -Hypervolemic hyponatremia -Hyperkalemia secondary to dehydration next and-possible urinary tract infection for which patient will be on antibiotics -Mildly elevated liver enzymes on repeat liver enzymes again tomorrow. May be related to sepsis. -Metastatic squamous cell lung cancer: Patient prognosis appears to be poor patient has metastatic disease and patient is quite weak probably will not be a candidate for chemotherapy or immunotherapy, we'll consult oncology for prognostication -Lactic acidosis secondary to possible sepsis and severe sepsis from urinary tract infection as well as contribution from dehydration --Obesity hypoventilation syndrome and sleep apnea history -Chronic A. fib on anticoagulation will cut down the dose of Eliquis because of renal failure to 2.5 and patient is presently sinus rhythm -Hypertension patient is presently hypotensive -Coronary artery disease
[2020-10-31] MEDS: FAMOTIDINE 20 MG TAB PO SCH (19:59)
[2020-10-31] MEDS: APIXABAN 2.5 MG TABLET PO SCH (20:00)
[2020-10-31] MEDS: SENNOSIDES 8.6 MG TAB PO SCH (20:00)
[2020-10-31] MEDS: carvediloL 3.125 MG TAB PO SCH (20:00)
[2020-11-01] MEDS ORDERED: HEPARIN SODIUM,PORCINE/PF 5,000 UNIT/0.5 ML SYRINGE SQ SCH
[2020-11-01] MEDS: SODIUM CHLORIDE 0.9% 1,000 ML IV SCH (03:27)
[2020-11-01] MEDS: ACETAMINOPHEN TAB 325 MG TAB PO PRN ×2 (04:09→20:38)
[2020-11-01] MEDS: carvediloL 3.125 MG TAB PO SCH ×2 (07:27→16:41)
[2020-11-01] MEDS ORDERED: ENSURE COMPLETE PO SCH (07:30)
[2020-11-01] MEDS: SENNOSIDES 8.6 MG TAB PO SCH ×2 (08:01→21:39)
[2020-11-01] MEDS: FAMOTIDINE 20 MG TAB PO SCH ×2 (08:01→21:35)
[2020-11-01] MEDS: TAMSULOSIN 0.4 MG CAP.ER.24H PO SCH (08:01)
[2020-11-01] MEDS: APIXABAN 2.5 MG TABLET PO SCH ×2 (08:01→21:35)
[2020-11-01 09:40] LABS: Anisocytosis Slight; Basophils % (A) 0 %; Eosinophils # (A) 0.1 k/uL (0-0.7); Eosinophils % (A) 1 %; HCT 31.8 % (39.0-53.0); HGB 10.5 gm/dL (13.0-17.5); Hypochromasia Moderate; Lymphocytes # (A) 2.2 k/uL (1.0-4.8); Lymphocytes % (A) 18 %; MCH 30.3 pg (25.0-35.0); MCHC 32.9 g/dL (31.0-37.0); MCV 92.3 fL (80.0-100.0); Monocytes # (A) 0.6 k/uL (0-1.0); Monocytes % (A) 5 %; Neutrophils # (A) 9.3 k/uL (1.3-7.7); Neutrophils % (A) 74 %; Platelet Count 160 k/uL (150-450); Poikilocytosis Slight; RBC 3.45 m/uL (4.30-5.90); RDW 16.6 % (11.5-15.5); WBC 12.5 k/uL (3.8-10.6)
[2020-11-01 10:09] LABS: ALT 47 U/L (4-49); AST 82 U/L (17-59); African American GFR (CKD) 74 (>60 ml/min/1.73 sqM); Alkaline Phosphatase 228 U/L (38-126); Non-African American GFR(CKD) 64 (>60 ml/min/1.73 sqM)
[2020-11-01 10:44] LABS: Albumin 2.1 g/dL (3.5-5.0); Albumin/Globulin Ratio 0.7; Anion Gap 1 mmol/L; Blood Urea Nitrogen 50 mg/dL (9-20); Calcium 7.7 mg/dL (8.4-10.2); Carbon Dioxide 36 mmol/L (22-30); Chloride 95 mmol/L (98-107); Glucose 100 mg/dL (74-99); Potassium 4.8 mmol/L (3.5-5.1); Sodium 132 mmol/L (137-145); Total Bilirubin 0.6 mg/dL (0.2-1.3); Total Protein 5.1 g/dL (6.3-8.2)
--- NOTE | 2020-11-01 11:06 | P.CNNES ---
History of Present Illness Consult date: 11/01/20 Requesting physician: Car Maldonado Reason for Consult: severe encephalopathy History of Present Illness: This is a 80-year-old gentleman with medical history of squamous cell lung cancer, atrial fibrillation, myocardial infarction, heart failure, coronary artery disease status post stent, pacemaker presented emergency department on 11/01/2020 for generalized weakness and altered mental status. History is obtained from medical record since patient is since patient does not recall everything that transpired yesterday. Per the ED note the patient was found to be hypotensive at his [place] office. Per the ED note the daughter stated that the patient has been at [facility] for rehab since his back surgery if we weeks ago and he has not been out of bed for physical therapy and had a poor appetite 4 days. He is a having tremor. Per the patient he remember going to his doctor's office then was told he was confused and does not recall episode. He denies history of seizure. Per the nurse he has been doing better since she had him. Patient is feeling better. Regarding his squamous cell cancer of lung he stated he was diagnosed about 2-4 months ago and has been getting radiation therapy. Some of the home medication R patient is on Eliquis 5 mg 1 tablet twice a day, gabapentin 300 mg 1 tablet 3 times a day, oxycodone, Lasix, amlodipine, spironolactone. On Coreg. Workup in the hospital consisted of: Initial vital signs: Blood pressure of 72/46, heart rate of 83, respiratory of 18, temperature of 98.2 Fahrenheit and pulse ox of 97% on 3 L of nasal cannula his blood pressure improved but again at 5:00 this morning the patient had a blood pressure of 77/[address] of the head is reported as there is no acute intracranial hemorrhage or midline shift is seen. No signature change from prior studies. CT of the cervical spine is reported as there is no acute fracture or dislocation evident in the cervical spine. On presentation his white blood cell is 20.3 and the repeated 12.5. Hemoglobin is 11.3 and his white blood cells is a neutrophilic predominance. On presentation his sodium was 131 which is low, potassium is 5.4 which is elevated, BUN is 48 and a creatinine is 1.5 which are elevated. Calcium is 8.1 which is low. AST of 119 and the ALT of 58 which are elevated and ammonia level is less than 9 which is normal The plasma lactic acid is 3.2 on presentation and the repeated is 2.8. Urinalysis suggestive of urinary tract infection. SARS COV2 PCR is not detected Review of Systems Review of system: The 12 point system was reviewed and apparent positive and negative per HPI. Past Medical History Past Medical History: Atrial Fibrillation, Coronary Artery Disease (CAD), Cancer, Heart Failure, Hypertension, Myocardial Infarction ([place]), Osteoarthritis ([place]), Prostate Disorder, Renal Disease, Respiratory Disorder, Sleep Apnea/CPAP/BIPAP Additional Past Medical History / Comment(s): Pt recently admtiited to [facility] on 09/18/20 with acute encephalopathy 2ndary to pain medications/acute hypoxic failure 2ndary to atelectasis/chronic hypercapnic respiratory failure/O2 ATC/T9 vertebral fracture/R knee strain. 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 Watts, bilateral lung nodules, bilateral lung restrictive disease, 09/2019 L lung upper lobe mass/L lung nonsmall cell cancer-treated with radiation, multiple metastasis/back-receiving radiation to back, intractable back pain, ABRAHAM with bipap use, carbon monoxide poisoning 08/2019, low back pain since 06/2020, L total knee infection-went into blood and was on Rocephin for 6 weeks in 2011-pt and spouse cannot recall if it was MRSA, BPH, large kidney stone pt was told he would never be able to pass-cannot recall laterallity, constipation, colitis. Last Myocardial Infarction Date:: mar 2018 History of Any Multi-Drug Resistant Organisms: None Reported Past Surgical History: Back Surgery, Heart Catheterization With Stent, Joint Replacement, Orthopedic Surgery, Pacemaker Additional Past Surgical History / Comment(s): 08/2019 kyphoplasty/bx T10, 09/2019 bronch with bx/brushings/BAL, 2018 pacemaker, bilateral knee arthroscopies, bilateral total knee replacements, R knee surgery for patellar tendon tear, PCI with stents, colonoscopy, bilateral cataract removals. Past Anesthesia/Blood Transfusion Reactions: Motion Sickness Date of Last Stent Placement:: 03/23 Type of Cardiac Device: Permanent Pacemaker Device Placement Date:: 02/20 Smoking Status: Former smoker - Past Family History Sister(s) Family Medical History: Cancer Brother(s) Family Medical History: Cancer Additional Family Medical History / Comment(s): 3 brothers cancer Father Family Medical History: Coronary Artery Disease (CAD), CVA/TIA, Myocardial Infarction ([place]) Additional Family Medical History / Comment(s): Father had TIAs and MIs. He between the ages of 62-68yrs from what pt believes was a [place] Mother Family Medical History: Myocardial Infarction ([place]) Additional Family Medical History / Comment(s): Mother of a [place] at the age of 88yrs. Medications and Allergies Home Medications Medication Instructions Recorded Confirmed Type Multivitamins, Thera [Multivitamin 1 tab PO DAILY 11/27/16 10/31/20 History (formulary)] Tamsulosin [Flomax] 0.4 mg PO DAILY 02/19/18 10/31/20 History Apixaban [Eliquis] 5 mg PO BID 08/22/20 10/31/20 History carvediloL [Coreg] 3.125 mg PO BID 08/22/20 10/31/20 History Lactulose [Constulose] 10 gm PO DAILY PRN 09/05/20 10/31/20 History oxyCODONE ER [OxyCONTIN] 20 mg PO Q12HR 3 Days #6 tab 09/10/20 10/31/20 Rx Sennosides [Senokot] 17.2 mg PO BID 30 Days #120 tab 09/12/20 10/31/20 Rx Gabapentin [Neurontin] 300 mg PO TID cap 10/04/20 10/31/20 Rx amLODIPine [Norvasc] 5 mg PO DAILY tab 10/04/20 10/31/20 Rx Ascorbic Acid [Vitamin C] 2,000 mg PO HS 10/31/20 10/31/20 History Calcium Carbonate [Calcium] 1,200 mg PO HS 10/31/20 10/31/20 History Cholecalciferol [Vitamin D3 (25 25 mcg PO HS 10/31/20 10/31/20 History Mcg = 1000 Iu)] Ensure Complete 1 can PO TID-W/MEALS 10/31/20 10/31/20 History Furosemide [Lasix] 20 mg PO DAILY@0600 10/31/20 10/31/20 History Mag Hydrox/Aluminum Hyd/Simeth 30 ml PO Q4H PRN 10/31/20 10/31/20 History [Mylanta Maximum Strength Liq] Spironolactone [Aldactone] 25 mg PO DAILY 10/31/20 10/31/20 History Z-Guard 1 applic TOPICAL Q12H 10/31/20 10/31/20 History oxyCODONE HCL [OxyIR] 5 mg PO Q6H PRN 10/31/20 10/31/20 History Allergies Allergy/AdvReac Type Severity Reaction Status Date / Time hydrocodone [From Vicodin] AdvReac Hallucinati Verified 10/31/20 13:14 ons Jlzirsr-Yrv-Nse Reductase AdvReac MUSCLE PAIN Verified 10/31/20 13:14 Inhibitor Physical Examination - Vital Signs Vital Signs: Vital Signs Temp Pulse Resp BP Pulse Ox 11/01/20 07:51 75 18 100/56 96 11/01/20 05:46 69 16 77/46 98 10/31/20 20:03 87 16 97/63 94 L 10/31/20 17:47 84 18 108/92 95 10/31/20 15:54 89 16 117/83 95 10/31/20 13:13 71 16 109/63 95 10/31/20 11:29 89 16 94/57 96 10/31/20 11:05 98.2 F 83 18 72/46 97 Intake and Output 10/31/20 11/01/20 11/01/20 22:59 06:59 14:59 Other: Weight 127.006 kg GENERAL: The patient is lying in bed and is not in acute distress. CHEST: The heart rate is regular rate rhythm. No murmurs to auscultation. LUNG: Clear to auscultation bilaterally no wheezing noted throughout. Not labored breathing. ABDOMEN/GI: Bowel sounds present in all 4 quadrants. No tenderness to palpation throughout. NEUROLOGICAL: Higher mental function: The patient is awake, alert, oriented to self, place and time. Patient is following commands. No aphasia and no neglect. Cranial nerves: The pupils are round, equal and reactive to light and accommodation. Visual devries are full to confrontation throughout. Extraocular movement is intact no nystagmus is noted. Facial sensation is normal to touch throughout. The facial strength is normal throughout. Hearing is normal b ilaterally to hand rub. Tongue is midline and moved [id number] without any difficulty. No dysarthria is noted. Shoulder shrug is normal bilaterally. Motor: Gait is deferred. The strength is 4+ to 5- over the left upper extremity (patient stated it was chronic). Otherwise upper are 5/5. While lower are limited because of paint bilateral knee pain. But was able to move legs side to side without difficulty. Ankles are 4/5 and limited because of pain. Normal tone and bulk. No spontaneous movement. Cerebellum: Normal finger to nose bilaterally. Sensation: Sensation is normal to touch throughout. Reflexes (right/left): Patellar are not assess because of pain. Otherwise 2+ throughout excpet ankles are 1+ bilaterally. Plantars are downgoing bilaterally. Results - Laboratory Findings CBC and BMP: 11/01/20 08:32 11/01/20 08:32 Abnormal Lab Findings: Abnormal Labs 10/31/20 10/31/20 10/31/20 11:57 11:57 11:57 WBC 20.3 H RBC 3.95 L Hgb 11.3 L Hct 37.1 L MCHC 30.4 L RDW 16.9 H Neutrophils # 16.9 H PT 12.8 H INR 1.2 H Sodium Potassium Chloride Carbon Dioxide BUN Creatinine Glucose Plasma Lactic Acid Franklyn Calcium AST ALT Alkaline Phosphatase Creatine Kinase Total Protein Albumin Urine Protein Trace H Urine Blood Moderate H Ur Leukocyte Esterase Large H Urine RBC 16 H Urine WBC >182 H Urine WBC Clumps Many H Amorphous Sediment Rare H Urine Bacteria Occasional H Urine Mucus Rare H 10/31/20 10/31/20 10/31/20 11:57 11:57 15:13 WBC RBC Hgb Hct MCHC RDW Neutrophils # PT INR Sodium 131 L Potassium 5.4 H Chloride 92 L Carbon Dioxide 34 H BUN 48 H Creatinine 1.50 H Glucose 150 H Plasma Lactic Acid Franklyn 3.2 H* 2.8 H* Calcium 8.1 L AST 119 H ALT 58 H Alkaline Phosphatase 309 H Creatine Kinase <20 L Total Protein 5.8 L Albumin 2.5 L Urine Protein Urine Blood Ur Leukocyte Esterase Urine RBC Urine WBC Urine WBC Clumps Amorphous Sediment Urine Bacteria Urine Mucus 11/01/20 08:32 WBC 12.5 H RBC 3.45 L Hgb 10.5 L Hct 31.8 L MCHC RDW 16.6 H Neutrophils # 9.3 H PT INR Sodium Potassium Chloride Carbon Dioxide BUN Creatinine Glucose Plasma Lactic Acid Franklyn Calcium AST ALT Alkaline Phosphatase Creatine Kinase Total Protein Albumin Urine Protein Urine Blood Ur Leukocyte Esterase Urine RBC Urine WBC Urine WBC Clumps Amorphous Sediment Urine Bacteria Urine Mucus Assessment and Plan Assessment: Altered mental status due to multiple factorial: Metabolic encephalopathy (elect rolyte imbalance (ONEL, elevated LFT's, hyponatremia, hypocalcemia), septic encephalopathy (UTI with hypotensive with leukocytosis)---improved. Myoclonic jerks seems metabolic---resolved Acute urinary tract infection Hypotensive episode with initial leukocytosis is likely septic shock from UTI. Elevated LFT's (119/58) Hyponatremia (131) ONEL--resolved History of squamous cell lung cancer Atrial fibrillation Myocardial infarction Heart failure s/p pacemaker Coronary artery disease status post stenting and Plan: CT of the head is reported as there is no acute intracranial hemorrhage or midline shift is seen. No signature change from prior studies. CT of the cervical spine is reported as there is no acute fracture or dislocation evident in the cervical spine. An EEG is ordered and is pending. I will not start the patient on an antiepileptic drug unless there is epileptiform discharges or seizure on the EEG Consider consulting Infection Disease team. Please avoid any further hypotensive episodes. We'll defer the rest of the medical measure to the primary team. The plan is discussed with the patient primary team. Thank you for the consultation. UPDATE: EEG (preliminary report): It is an abnormal routine EEG. The background slowing is suggestive of mild to moderate encephalopathy likely due to toxic- metabolic etiology. There are no focal slowing, epileptiform discharges or seizure on the EEG. There is no further work-up needed. Ole Kamara MD Neuro-Hospitalist Time with Patient: Greater than 30
[2020-11-01] MEDS ORDERED: VANCOMYCIN IV PER PHARMACY 1 EACH MISC MISCELLANE PRN (11:35)
--- NOTE | 2020-11-01 13:40 | P.CONS ---
History of Present Illness - Reason for Consult Consult date: 11/01/20 Recurrent Lung Cancer Requesting physician: Car Maldonado - Chief Complaint Weakness - History of Present Illness De is a patient of Dr. Huan Garcia who was diagnosed with Stage 2, NSCLCA in 2019. He underwent definitive radaition therapy at that time. He originally presented to Dr Rodriguez, his PCP with C/O progressive SOB X 2 months and dry cough X 3 weeks. Denied any chest or skeletal pain, no anorexia or weight loss. CXR was suggestive of Pulmonary nodules, had CT Scan of chest revealing numerous bilateral pulmonary nodules of variable sizes. No mediastinal Lymphadenopathy or dominant lung tumors. Had CT Scan of abdomen/Pelvis which were mostly negative. De smoked 2 PPD X 20 years, quit smoking 30 years ago. No known primary malignacies in past. He had CT-Guided Lung nodule Bx at [facility] : Necritizing Granuloma, no malignancy seen. 09/27/19: He had recent CO poisoning > CXR revealed large YOLIS lesion, CT Scan revealed 4.6cm YOLIS suspicious mass, PET Scan revealed solitary lesion (SUV 34). Hs stable pulmonary nodules C/W Granulomas. The patient had bronchoscopy by Dr Watts on 09/12/19 revealing poorly- differentiated NSCLC, C/W Squamous cell carcinoma. Completed definitive radiation therapy and did not follow-up as recommended with medical oncology following this. 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 He was just discharged home on 09/13/2020. Radiation oncology was following and he received a total of 6 radiation treatments to his spine. On 09/18/20 he represented after sustaining a fall down 3-4 steps at home. X-rays revealed multiple acute fracture lines involving the T9 and T10 vertebral bodies through the site of previous vertebral plasty in the vertebral body just above. He underwent procedure with ortho spine and then was discharged with rehab to improve performance prior to further evaluation of treatment options. He has become weaker and had increased mental status changes over the past week, therefore he was brought back to hospital to be further evaluated. FUll cueto cultures (neg at this time) performed. Neurology is following and pulmonary Past Medical History Past Medical History: Atrial Fibrillation, Coronary Artery Disease (CAD), Cancer, Heart Failure, Hypertension, Myocardial Infarction (RI), Osteoarthritis (OA), Prostate Disorder, Renal Disease, Respiratory Disorder, Sleep Apnea/CPAP/BIPAP Additional Past Medical History / Comment(s): Pt recently admtiited to [facility] on 09/18/20 with acute encephalopathy 2ndary to pain medications/acute hypoxic failure 2ndary to atelectasis/chronic hypercapnic respiratory failure/O2 ATC/T9 vertebral fracture/R knee strain. 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 Watts, bilateral lung nodules, bilateral lung restrictive disease, 09/2019 L lung upper lobe mass/L lung nonsmall cell cancer-treated with radiation, multiple metastasis/back-receiving radiation to back, intractable back pain, ABRAHAM with bipap use, carbon monoxide poisoning 08/2019, low back pain since 06/2020, L total knee infection-went into blood and was on Rocephin for 6 weeks in 2011-pt and spouse cannot recall if it was MRSA, BPH, large kidney sto ne pt was told he would never be able to pass-cannot recall laterallity, constipation, colitis. Last Myocardial Infarction Date:: mar 2018 History of Any Multi-Drug Resistant Organisms: None Reported Past Surgical History: Back Surgery, Heart Catheterization With Stent, Joint Replacement, Orthopedic Surgery, Pacemaker Additional Past Surgical History / Comment(s): 08/2019 kyphoplasty/bx T10, 09/2019 bronch with bx/brushings/BAL, 2018 pacemaker, bilateral knee arthroscopies, bilateral total knee replacements, R knee surgery for patellar tendon tear, PCI with stents, colonoscopy, bilateral cataract removals. Past Anesthesia/Blood Transfusion Reactions: Motion Sickness Date of Last Stent Placement:: 03/23 Type of Cardiac Device: Permanent Pacemaker Device Placement Date:: 02/20 Smoking Status: Former smoker - Past Family History Sister(s) Family Medical History: Cancer Brother(s) Family Medical History: Cancer Additional Family Medical History / Comment(s): 3 brothers cancer Father Family Medical History: Coronary Artery Disease (CAD), CVA/TIA, Myocardial Infarction (RI) Additional Family Medical History / Comment(s): Father had TIAs and MIs. He between the ages of 62-68yrs from what pt believes was a RI Mother Family Medical History: Myocardial Infarction (RI) Additional Family Medical History / Comment(s): Mother of a RI at the age of 88yrs. Medications and Allergies Home Medications Medication Instructions Recorded Confirmed Type Multivitamins, Thera [Multivitamin 1 tab PO DAILY 11/27/16 10/31/20 History (formulary)] Tamsulosin [Flomax] 0.4 mg PO DAILY 02/19/18 10/31/20 History Apixaban [Eliquis] 5 mg PO BID 08/22/20 10/31/20 History carvediloL [Coreg] 3.125 mg PO BID 08/22/20 10/31/20 History Lactulose [Constulose] 10 gm PO DAILY PRN 09/05/20 10/31/20 History oxyCODONE ER [OxyCONTIN] 20 mg PO Q12HR 3 Days #6 tab 09/10/20 10/31/20 Rx Sennosides [Senokot] 17.2 mg PO BID 30 Days #120 tab 09/12/20 10/31/20 Rx Gabapentin [Neurontin] 300 mg PO TID cap 10/04/20 10/31/20 Rx amLODIPine [Norvasc] 5 mg PO DAILY tab 10/04/20 10/31/20 Rx Ascorbic Acid [Vitamin C] 2,000 mg PO HS 10/31/20 10/31/20 History Calcium Carbonate [Calcium] 1,200 mg PO HS 10/31/20 10/31/20 History Cholecalciferol [Vitamin D3 (25 25 mcg PO HS 10/31/20 10/31/20 History Mcg = 1000 Iu)] Ensure Complete 1 can PO TID-W/MEALS 10/31/20 10/31/20 History Furosemide [Lasix] 20 mg PO DAILY@0600 10/31/20 10/31/20 History Mag Hydrox/Aluminum Hyd/Simeth 30 ml PO Q4H PRN 10/31/20 10/31/20 History [Mylanta Maximum Strength Liq] Spironolactone [Aldactone] 25 mg PO DAILY 10/31/20 10/31/20 History Z-Guard 1 applic TOPICAL Q12H 10/31/20 10/31/20 History oxyCODONE HCL [OxyIR] 5 mg PO Q6H PRN 10/31/20 10/31/20 History Allergies Allergy/AdvReac Type Severity Reaction Status Date / Time hydrocodone [From Vicodin] AdvReac Hallucinati Verified 10/31/20 13:14 ons Bcmygvi-Hso-[id number] Reductase AdvReac MUSCLE PAIN Verified 10/31/20 13:14 Inhibitor Physical Exam Vitals: Vital Signs Temp Pulse Pulse Resp BP BP Pulse Ox 11/01/20 13:13 97.4 F L 70 20 97/60 95 11/01/20 07:51 75 18 100/56 96 11/01/20 05:46 69 16 77/46 98 10/31/20 20:03 87 16 97/63 94 L 10/31/20 17:47 84 18 108/92 95 10/31/20 15:54 89 16 117/83 95 Intake and Output 10/31/20 11/01/20 11/01/20 22:59 06:59 14:59 Other: Weight 127.006 kg Constitutional General appearance: cooperative, no acute distress - EENT Eyes: EOMI, PERRLA ENT: hard of hearing, NA/AT - Neck Neck: normal ROM - Respiratory Respiratory: bilateral: diminished - Cardiovascular Rhythm: regular leg Peripheral Edema: bilateral: 2+ LUE Edema - Gastrointestinal General gastrointestinal: soft - Integumentary Integumentary: pale - Neurologic RYAN due to pain - Musculoskeletal Musculoskeletal: generalized weakness - Psychiatric Psychiatric: A&O x's 3 Results CBC & Chem 7: 11/01/20 08:32 11/01/20 08:32 Labs: Abnormal Lab Results - Last 24 Hours (Table) 10/31/20 11/01/20 11/01/20 Range/Units 15:13 08:32 08:32 WBC 12.5 H (3.8-10.6) k/uL RBC 3.45 L (4.30-5.90) m/uL Hgb 10.5 L (13.0-17.5) gm/dL Hct 31.8 L (39.0-53.0) % RDW 16.6 H (11.5-15.5) % Neutrophils # 9.3 H (1.3-7.7) k/uL Sodium 132 L (137-145) mmol/L Chloride 95 L (98-107) mmol/L Carbon Dioxide 36 H (22-30) mmol/L BUN 50 H (9-20) mg/dL Glucose 100 H (74-99) mg/dL Plasma Lactic Acid Franklyn 2.8 H* (0.7-2.0) mmol/L Calcium 7.7 L (8.4-10.2) mg/dL AST 82 H (17-59) U/L Alkaline Phosphatase 228 H (38-126) U/L Total Protein 5.1 L (6.3-8.2) g/dL Albumin 2.1 L (3.5-5.0) g/dL Microbiology - Last 24 Hours (Table) 10/31/20 13:50 Blood Culture - Final Blood 10/31/20 11:57 Urine Culture - Preliminary Urine,Catheterized CT Scan - head: report reviewed Assessment and Plan (1) Myopathy Current Visit: Yes Status: Acute Code(s): G72.9 - MYOPATHY, UNSPECIFIED SNOMED Code(s): 965907512 (2) Weakness Current Visit: Yes Status: Acute Code(s): R53.1 - WEAKNESS SNOMED Code(s): 90866517 (3) Squamous cell carcinoma of lung, stage IV Current Visit: No Status: Acute Priority: High Code(s): C34.90 - MALIGNANT NEOPLASM OF UNSP PART OF UNSP BRONCHUS OR LUNG SNOMED Code(s): 925088061 (4) Thoracic vertebral fracture Current Visit: No Status: Acute Code(s): S22.009A - UNSP FRACTURE OF UNSP THORACIC VERTEBRA, INIT FOR CLOS FX SNOMED Code(s): 336806473 Plan: Assessment and Recommendations: Recurrent Non-Small Cell Lung Ca: With recent progression to bone/spine - Status post radiation therapy positive bone biopsy T10 NSCLCA poorly differentiated - Will send path for molecular NGS, prior lung biopsy was PDL1 - 90% - Awaiting improved performance for further treatment options, Per Dr. Garcia Recent Admission after Fall with Multiple pathological fractures: - T9 and T10 Fractures, unable to perform MRI due to stents and pacer - Status Post surgical intervention with orthospine - At this time no improvements planning on intervention today Neoplastic related pain: - Continue current regimen Continue support care. Treatment plan to be consisdered following increased performance and discharge from hospitalization Physician Attest: I have completed the full history and physical and agree with above dictation, dicted as a scribe
--- NOTE | 2020-11-01 14:14 | P.PN ---
Subjective Progress Note Date: 11/01/20 74-year-old male came into emergency department with compensative generalized weakness patient is unable to provide any history to me as patient is severely encephalopathic although patient upon further questioning does answer questions appropriately. Patient has a severe myoclonic activity secondary to severe encephalopathy. Patient does have acute renal failure with elevated creatinine of 1.5 with baseline being normal patient is also on diuretic therapy. Patient had leukocytosis no fever at this time. Patient has highly elevated red blood cell count of 20,000. Urine is significantly abnormal patient was started on Rocephin. Patient does have history of first, cell lung cancer which was d iagnosed because of metastatic lesions to lumbar spine. Patient subsequently had pathological fracture patient had a surgery for that and was subsequently discharged to subacute rehabilitation. Patient was not started on any chemotherapy as patient is needing rehabilitation at this time. Patient is unable to much of history. Patient is also hyponatremic with elevated potassium. Patient the had a chest x-ray did not show any significant abnormality CT of the head and cervical spine did not show any intracranial bleed or midline shift her metastatic lesions that were evident. Patient was h yperkalemic as well. Troponins are negative. 11/01/2020 Patient is seen and evaluated in follow-up continues to be extremely weak with back pain and mentation improved today. Patient was started on IV fluids and sodium slightly improved at 132 with a potassium of 4.8, BUN is 50 and creatinine slightly improved at 1.10. Lactic acid also improved and is currently 1.0. Patient continues on 2-3 L of oxygen via nasal cannula and is normally 2-3 L at home. Blood pressures on the lower side and being closely monitored. Patient continues on IV ceftriaxone and received a notification that blood cultures were positive for gram-positive cocci and repeat blood cultures were ordered and infectious disease was consulted and currently pending. Urine cultures not resulted yet. Oncology also following. Case management also following this patient and family want to return home and will continue with palliative care and referral was placed. Patient was on a number of pain medications for chronic back pain which are currently on hold as patient came in with increased confusion. Review of systems: Constitutional: No reports of fatigue, fever, or chills Cardiovascular: No reports of chest pain or palpitations Respiratory: No reports of shortness of breath or cough GI: No reports of nausea, vomiting, or diarrhea, reports mild constipation : No reports of dysuria or retention Neurovascular: Reports generalized weakness All medications have been reviewed Objective - Vital Signs Vital signs: Vital Signs Temp 98.2 F 10/31/20 11:05 Pulse 75 11/01/20 07:51 Resp 18 11/01/20 07:51 BP 100/56 11/01/20 07:51 Pulse Ox 96 11/01/20 07:51 Intake & Output 10/31/20 11/01/20 11/01/20 18:59 06:59 18:59 Weight 127.006 kg 127.006 kg - Exam GENERAL: Patient is awake, alert and oriented 2, not in any acute distress. Well developed, well nourished. Obese. Patient although did lose his weight significantly compared to his previous hospital visits HEENT: Pupils are round and equally reacting to light. EOMI. No scleral icterus. No conjunctival pallor. Normocephalic, atraumatic. No pharyngeal erythema. No thyromegaly. Patient does have droopy eyelids CARDIOVASCULAR: S1 and S2 present. No murmurs, rubs, or gallops. PULMONARY: Chest is clear to auscultation, no wheezing or crackles. ABDOMEN: Soft, nontender, nondistended, normoactive bowel sounds. No palpable organomegaly. MUSCULOSKELETAL: No joint swelling or deformity. EXTREMITIES: No cyanosis, clubbing, or pedal edema. NEUROLOGICAL: No focal deficits noted, diffusely weak requiring assistance SKIN: No rashes. - Labs CBC & Chem 7: 11/01/20 08:32 11/01/20 08:32 Labs: Abnormal Lab Results - Last 24 Hours (Table) 10/31/20 10/31/20 11/01/20 Range/Units 11:57 15:13 08:32 WBC 12.5 H (3.8-10.6) k/uL RBC 3.45 L (4.30-5.90) m/uL Hgb 10.5 L (13.0-17.5) gm/dL Hct 31.8 L (39.0-53.0) % RDW 16.6 H (11.5-15.5) % Neutrophils # 9.3 H (1.3-7.7) k/uL Sodium (137-145) mmol/L Chloride (98-107) mmol/L Carbon Dioxide (22-30) mmol/L BUN (9-20) mg/dL Glucose (74-99) mg/dL Plasma Lactic Acid Franklyn 2.8 H* (0.7-2.0) mmol/L Calcium (8.4-10.2) mg/dL AST (17-59) U/L Alkaline Phosphatase (38-126) U/L Total Protein (6.3-8.2) g/dL Albumin (3.5-5.0) g/dL Urine Protein Trace H (Negative) Urine Blood Moderate H (Negative) Ur Leukocyte Esterase Large H (Negative) Urine RBC 16 H (0-5) /hpf Urine WBC >182 H (0-5) /hpf Urine WBC Clumps Many H (None) /hpf Amorphous Sediment Rare H (None) /hpf Urine Bacteria Occasional H (None) /hpf Urine Mucus Rare H (None) /hpf 11/01/20 Range/Units 08:32 WBC (3.8-10.6) k/uL RBC (4.30-5.90) m/uL Hgb (13.0-17.5) gm/dL Hct (39.0-53.0) % RDW (11.5-15.5) % Neutrophils # (1.3-7.7) k/uL Sodium 132 L (137-145) mmol/L Chloride 95 L (98-107) mmol/L Carbon Dioxide 36 H (22-30) mmol/L BUN 50 H (9-20) mg/dL Glucose 100 H (74-99) mg/dL Plasma Lactic Acid Franklyn (0.7-2.0) mmol/L Calcium 7.7 L (8.4-10.2) mg/dL AST 82 H (17-59) U/L Alkaline Phosphatase 228 H (38-126) U/L Total Protein 5.1 L (6.3-8.2) g/dL Albumin 2.1 L (3.5-5.0) g/dL Urine Protein (Negative) Urine Blood (Negative) Ur Leukocyte Esterase (Negative) Urine RBC (0-5) /hpf Urine WBC (0-5) /hpf Urine WBC Clumps (None) /hpf Amorphous Sediment (None) /hpf Urine Bacteria (None) /hpf Urine Mucus (None) /hpf Microbiology - Last 24 Hours (Table) 10/31/20 13:50 Blood Culture - Final Blood 10/31/20 11:57 Urine Culture - Preliminary Urine,Catheterized Assessment and Plan Assessment: -Severe toxic and metabolic encephalopathy: Toxic encephalopathy secondary to opiates and also acute renal failure and patient is on long-acting opiates which is being held. Patient may have urinary tract infection as well patient will be continued on Rocephin opiates will be discontinued neurology will be consulted EEG will be ordered patient may have some metabolic encephalopathy from dehydration as well, and patient improving and neurology following -Acute renal failure: Prerenal azotemia secondary to dehydration which is secondary to diuretics, diuretics will be held patient had a normal ejection fraction the past -Hypervolemic hyponatremia sodium is 132 today -Hyperkalemia secondary to dehydration -possible urinary tract infection for which patient continues on IV ceftriaxone while awaiting for cultures to finalize -Mildly elevated liver enzymes on repeat liver enzymes again tomorrow. May be related to sepsis., Improving -Metastatic squamous cell lung cancer: Patient prognosis appears to be poor patient has metastatic disease and patient is quite weak probably will not be a candidate for chemotherapy or immunotherapy, we'll consult oncology for prognostication -Lactic acidosis secondary to possible sepsis and severe sepsis from urinary tract infection as well as contribution from dehydration -Obesity hypoventilation syndrome and sleep apnea history -Chronic A. fib on anticoagulation will cut down the dose of Eliquis because of renal failure to 2.5 and patient is presently sinus rhythm -Hypertension patient is presently hypotensive -Coronary artery disease Plan: Continue with current medications and continue to avoid narcotics. Patient mentation improving although continues to be somewhat confused. Creatinine improving at 1.10. Neurology following and planning on EEG which is currently pending. Received a call from lab stating positive blood cultures and patient is maintained on IV ceftriaxone and will continue and consult was placed for infectious disease with repeat blood cultures drawn and currently pending. Case management and social work also following this patient is high risk for multiple hospital readmissions and [facility] which family is not willing to let him go back to and would like him to go home with palliative care and Homecare as needed. Will continue to hold narcotics and assess mentation. Continue to encourage oral intake and activity as tolerated. PT/OT to evaluate the patient. Prognosis remains poor.
[2020-11-01] MEDS: VANCOMYCIN 2,000 MG in SODIUM CHLORIDE 0.9% 500 ML 500 ML IVPB SCH (14:43)
--- NOTE | 2020-11-01 18:50 | EEG ---
ELECTROENCEPHALOGRAM REPORT DATE OF SERVICE: 11/01/2020. CLINICAL HISTORY: This is a 80-year-old gentleman who presented to the emergency department with generalized weakness as well as altered mental status and reported brief body jerks. This video EEG is obtained to evaluate for seizure and epileptiform activity. RELEVANT MEDICATION: The patient is not on any antiepileptic drug. EEG TYPE: A routine 21-channel EEG performed with video using the 10/20 electrode system. DESCRIPTION: Wakefulness is obtained. During wakefulness, the background consists of 6.5 to 7 hertz theta activity. There was no physiological stage II sleep. There is no focal slowing. There is moderate to significant myogenic artifact over the bilateral temporal as well as A1, A2 electrodes. Interictal and ictal: None. ACTIVATION PROCEDURE Photic stimulation did not evoke a posterior driving response. Hyperventilation was not performed. CLINICAL INTERPRETATION: This is an abnormal routine EEG. The background slowing is suggestive of mild to moderate encephalopathy, likely of toxic metabolic etiology. There are no focal slowing, epileptiform discharges or seizure on the EEG. Clinical correlation is recommended. MMKAT / TROYN: [id number] / MTDD
--- NOTE | 2020-11-01 23:35 | CONS ---
CONSULTATION DATE OF SERVICE: 11/01/2020 REASON FOR CONSULTATION: 1. Bacteremia. 2. UTI. HISTORY OF PRESENT ILLNESS: The patient is a 80-year-old man with a past medical history significant for [id number] lung cancer with recent metastasis to the spine, status post T10 kyphoplasty and has been subsequently at [facility] on the [place] for rehabilitation therapy. The patient apparently has been getting weaker and had poor appetite and has not been up out of the bed for physical therapy for many days. The patient was sent to the ER for generalized weakness, no energy. The patient denies having any headache. No nausea, no vomiting. No abdominal pain or diarrhea. The patient apparently was noted to be disoriented on the day of presentation to the hospital. Hence the patient was sent for further evaluation. On arrival in the ER the patient was afebrile. The patient did have a white count of 20,000. Repeat this morning is 12.5. The patient had elevated lactic acid. Urine was positive. The patient was diagnosed with a urinary tract infection. The patient had COVID RSV and influenza PCR negative. The patient a cervical spine CT negative for any bleed. Chest x-ray: Scattered nodules re- demonstrated and infiltrate in left upper lobe persists although is improved. The patient did have blood cultures drawn which came back positive with Gram-positive cocci. That prompted this infectious disease consultation. REVIEW OF SYSTEMS: Positive points have been mentioned in the HPI. Rest of the systems are negative. PAST MEDICAL HISTORY: Significant for atrial fibrillation, coronary artery disease, [id number] metastatic lung cancer, heart failure, SC, osteoarthritis. PAST SURGICAL HISTORY: Back surgery, PTCA with stent, pacemaker placement. Did have kyphoplasty. Bronchoscopy with biopsy. SOCIAL HISTORY: Remote history of smoking. Rarely drinks. No drug use. FAMILY HISTORY: Father with history of coronary artery disease. Mother with history of SC. ALLERGIES: HYDROCODONE, STATINS. MEDICATIONS: The patient is currently on Tylenol, Eliquis, Coreg, Rocephin 1 gram daily, Pepcid, Narcan, Senokot, Flomax, vancomycin, Pharmacy to dose. PHYSICAL EXAMINATION: Blood pressure 102/62 with a pulse of 85, temperature 98.3. He is 96% on 3 L nasal cannula. General description is an elderly male lying in bed in no distress. No tachypnea or accessory muscle of respiration use. HEENT: Examination shows pallor. No scleral icterus. Oral mucous membrane is dry. NECK: Trachea is central. No thyromegaly. LUNGS: Unlabored breathing. Clear to auscultation anteriorly. No wheeze or crackle. HEART: S1, S2. Regular rate and rhythm. ABDOMEN: Soft. No tenderness. No guarding or rigidity. EXTREMITIES: No edema of the feet. SKIN EXAMINATION: No rash or mass palpable. Neurologically the patient is awake, alert, oriented x3. Mood and affect normal. LABS: Hemoglobin is 10.5, white count 12.5. Admission white count was 20,000. BUN of 50, creatinine 1.10. Electrolytes have been normal. Lactic acid 2.8; repeat is 1.0. Liver enzymes: AST mildly elevated, ALT was normal. Urine is positive. Blood culture with Gram-positive. DIAGNOSTIC IMPRESSION AND PLAN: Patient presented to the hospital with mental status changes in this patient who did have elevated white count on presentation, but no fever. Did have significantly positive UA with concern for possible urinary source. The patient now does have positive blood cultures. With the recent kyphoplasty to the T10 spine with incomplete healing of the wound, source is possibly skin and soft tissue, as there is no evidence of any pneumonia, and no cellulitis was noticed. PLAN: 1. Blood cultures will be repeated to document clearance of bacteremia. 2. Vancomycin, Pharmacy to dose. Target of 15. Along with Rocephin 1 gram daily to continue. 3. Will follow his clinical condition and investigations to further adjust his medication if needed. Thank you for this consultation. at the bedside. Questions were answered. MMODL / IJN: [id number] /
[2020-11-02] MEDS: SODIUM CHLORIDE 0.9% 1,000 ML IV SCH ×4 (03:35→18:20)
[2020-11-02] MEDS: VANCOMYCIN 2,000 MG in SODIUM CHLORIDE 0.9% 500 ML 500 ML IVPB SCH (05:46)
[2020-11-02] MEDS: ACETAMINOPHEN TAB 325 MG TAB PO PRN (05:52)
[2020-11-02 06:45] LABS: African American GFR (CKD) >90 (>60 ml/min/1.73 sqM); Anion Gap 2 mmol/L; Blood Urea Nitrogen 34 mg/dL (9-20); Calcium 7.8 mg/dL (8.4-10.2); Carbon Dioxide 32 mmol/L (22-30); Chloride 99 mmol/L (98-107); Glucose 95 mg/dL (74-99); Non-African American GFR(CKD) 85 (>60 ml/min/1.73 sqM); Potassium 4.1 mmol/L (3.5-5.1); Sodium 133 mmol/L (137-145)
[2020-11-02] MEDS: TAMSULOSIN 0.4 MG CAP.ER.24H PO SCH (08:15)
[2020-11-02] MEDS: APIXABAN 2.5 MG TABLET PO SCH ×2 (08:15→20:21)
[2020-11-02] MEDS: carvediloL 3.125 MG TAB PO SCH ×2 (08:15→18:20)
[2020-11-02] MEDS: FAMOTIDINE 20 MG TAB PO SCH ×2 (08:15→20:22)
[2020-11-02] MEDS: SENNOSIDES 8.6 MG TAB PO SCH ×2 (08:15→20:06)
[2020-11-02] MEDS ORDERED: BENZOCAINE/MENTHOL LOZENG 1 EACH LOZENGE MUCOUS MEM PRN (10:22)
[2020-11-02] MEDS: HYDROcodone/APAP 5-325MG 1 EACH TAB PO PRN ×2 (10:29→20:08)
--- NOTE | 2020-11-02 11:05 | P.PN ---
Subjective Progress Note Date: 11/02/20 Principal diagnosis: Bacteremia On nasal canula, Bipap overnight. IV antibiotics and ID following. PT/OT Objective - Vital Signs Vital signs: Vital Signs Temp 97.6 F 11/02/20 04:13 Pulse 82 11/02/20 04:13 Resp 18 11/02/20 04:13 BP 112/67 11/02/20 04:13 Pulse Ox 98 11/02/20 04:13 Intake & Output 11/01/20 11/02/20 11/02/20 18:59 06:59 18:59 Weight 127.006 kg Other: Voiding Method Urinal Diaper # Voids 2 # Bowel Movements 2 2 - Exam Constitutional General appearance: cooperative, no acute distress - EENT Eyes: EOMI, PERRLA ENT: hard of hearing, NA/AT - Neck Neck: normal ROM - Respiratory Respiratory: bilateral: diminished - Cardiovascular Rhythm: regular leg Peripheral Edema: bilateral: 2+ LUE Edema - Gastrointestinal General gastrointestinal: soft - Integumentary Integumentary: pale - Neurologic RYAN due to pain - Musculoskeletal Musculoskeletal: generalized weakness - Psychiatric - Labs CBC & Chem 7: 11/02/20 05:50 11/02/20 05:46 Labs: Abnormal Lab Results - Last 24 Hours (Table) 11/02/20 Range/Units 05:46 Sodium 133 L (137-145) mmol/L Carbon Dioxide 32 H (22-30) mmol/L BUN 34 H (9-20) mg/dL Calcium 7.8 L (8.4-10.2) mg/dL Microbiology - Last 24 Hours (Table) 10/31/20 11:57 Urine Culture - Preliminary Urine,Catheterized Gram Neg Bacilli 10/31/20 13:50 Blood Culture Gram Stain - Preliminary Blood Blood Culture - Preliminary Coagulase Negative Staph 10/31/20 13:50 Blood Culture - Final Blood Assessment and Plan (1) Myopathy Current Visit: Yes Status: Acute Code(s): G72.9 - MYOPATHY, UNSPECIFIED SNOMED Code(s): 854728107 (2) Weakness Current Visit: Yes Status: Acute Code(s): R53.1 - WEAKNESS SNOMED Code(s): 19484685 (3) Squamous cell carcinoma of lung, stage IV Current Visit: No Status: Acute Priority: High Code(s): C34.90 - MALIGNANT NEOPLASM OF UNSP PART OF UNSP BRONCHUS OR LUNG SNOMED Code(s): 348569278 (4) Thoracic vertebral fracture Current Visit: No Status: Acute Code(s): S22.009A - UNSP FRACTURE OF UNSP THORACIC VERTEBRA, INIT FOR CLOS FX SNOMED Code(s): 141140222 (5) Bacteremia Current Visit: Yes Status: Acute Code(s): R78.81 - BACTEREMIA SNOMED Code(s): 2176449 Plan: Assessment and Recommendations: Bacteremia: - Positive blood cultures, on IV antibiotis - ID following - Possible contaminate, repeated UTI: - Positive Cultures Recurrent Non-Small Cell Lung Ca: With recent progression to bone/spine - Status post radiation therapy positive bone biopsy T10 NSCLCA poorly differentiated - Will send path for molecular NGS, prior lung biopsy was PDL1 - 90% - Awaiting improved performance for further treatment options, Per Dr. Garcia Recent Admission after Fall with Multiple pathological fractures: - T9 and T10 Fractures, unable to perform MRI due to stents and pacer - Status Post surgical intervention with orthospine - At this time no improvements planning on intervention today Neoplastic related pain: - Continue current regimen Continue support care. Treatment plan to be considered following increased performance and discharge from hospitalization Physician Attest: I have completed full history and physical developed above impression and plan, agree with dictation, dictated as a scribe
[2020-11-02 11:32] LABS: Anisocytosis Slight; Basophils % (A) 0 %; Eosinophils # (A) 0.5 k/uL (0-0.7); Eosinophils % (A) 4 %; HGB 11.1 gm/dL (13.0-17.5); Hypochromasia Marked; Lymphocytes # (A) 1.4 k/uL (1.0-4.8); Lymphocytes % (A) 12 %; MCH 28.6 pg (25.0-35.0); MCHC 29.9 g/dL (31.0-37.0); MCV 95.4 fL (80.0-100.0); Mean Platelet Volume 8.8; Monocytes # (A) 0.4 k/uL (0-1.0); Monocytes % (A) 4 %; Neutrophils # (A) 9.1 k/uL (1.3-7.7); Neutrophils % (A) 78 %; Platelet Count 197 k/uL (150-450); Poikilocytosis Slight; RBC 3.87 m/uL (4.30-5.90); RDW 16.7 % (11.5-15.5); WBC 11.7 k/uL (3.8-10.6)
[2020-11-02 13:43] VITALS: BMI 38.0
--- NOTE | 2020-11-02 16:00 | P.PN ---
Subjective Progress Note Date: 11/02/20 74-year-old male came into emergency department with compensative generalized weakness patient is unable to provide any history to me as patient is severely encephalopathic although patient upon further questioning does answer questions appropriately. Patient has a severe myoclonic activity secondary to severe encephalopathy. Patient does have acute renal failure with elevated creatinine of 1.5 with baseline being normal patient is also on diuretic therapy. Patient had leukocytosis no fever at this time. Patient has highly elevated red blood cell count of 20,000. Urine is significantly abnormal patient was started on Rocephin. Patient does have history of first, cell lung cancer which was d iagnosed because of metastatic lesions to lumbar spine. Patient subsequently had pathological fracture patient had a surgery for that and was subsequently discharged to subacute rehabilitation. Patient was not started on any chemotherapy as patient is needing rehabilitation at this time. Patient is unable to much of history. Patient is also hyponatremic with elevated potassium. Patient the had a chest x-ray did not show any significant abnormality CT of the head and cervical spine did not show any intracranial bleed or midline shift her metastatic lesions that were evident. Patient was h yperkalemic as well. Troponins are negative. 11/01/2020 Patient is seen and evaluated in follow-up continues to be extremely weak with back pain and mentation improved today. Patient was started on IV fluids and sodium slightly improved at 132 with a potassium of 4.8, BUN is 50 and creatinine slightly improved at 1.10. Lactic acid also improved and is currently 1.0. Patient continues on 2-3 L of oxygen via nasal cannula and is normally 2-3 L at home. Blood pressures on the lower side and being closely monitored. Patient continues on IV ceftriaxone and received a notification that blood cultures were positive for gram-positive cocci and repeat blood cultures were ordered and infectious disease was consulted and currently pending. Urine cultures not resulted yet. Oncology also following. Case management also following this patient and family want to return home and will continue with palliative care and referral was placed. Patient was on a number of pain medications for chronic back pain which are currently on hold as patient came in with increased confusion. 11/02/2020 Patient is seen in follow-up continues to be weak requiring assistance and mentation is improved today. Patient was able to get up with assistance to the chair today. Patient will work with physical therapy. Patient is having more pain and discuss with family along with the patient at the bedside and will add [place] low-dose and monitor closely. Blood cultures showing coagulase-negative staph and will await for culture finalization and repeat blood cultures pending and urine culture preliminary showing gram-negative bacilli and patient is maintained on ceftriaxone and will continue at this time. White blood count trending down at 11.7 hemoglobin is stable at 11.1, sodium is 133 with a pota ssium of 4.1 and creatinine improved at 0.81. Patient encouraged to increase oral intake and increase activity as tolerated. Review of systems: Constitutional: No reports of fatigue, fever, or chills Cardiovascular: No reports of chest pain or palpitations Respiratory: No reports of shortness of breath or cough GI: No reports of nausea, vomiting, or diarrhea : No reports of dysuria or retention Neurovascular: Reports generalized weakness All medications have been reviewed Objective - Vital Signs Vital signs: Vital Signs Temp 98.2 F 11/02/20 12:20 Pulse 70 11/02/20 12:20 Resp 18 11/02/20 12:20 BP 117/78 11/02/20 12:20 Pulse Ox 98 11/02/20 12:20 Intake & Output 11/01/20 11/02/20 11/02/20 18:59 06:59 18:59 Weight 127.006 kg 127.006 kg Other: Voiding Method Urinal Urinal Diaper Diaper Incontinent # Voids 2 # Bowel Movements 2 2 - Exam GENERAL: Patient is awake, alert and oriented 2-3, not in any acute distress. Well developed, well nourished. Obese. Patient although did lose weight significantly compared to his previous hospital visits HEENT: Pupils are round and equally reacting to light. EOMI. No scleral icterus. No conjunctival pallor. Normocephalic, atraumatic. No pharyngeal erythema. No thyromegaly. Patient does have droopy eyelids CARDIOVASCULAR: S1 and S2 present. No murmurs, rubs, or gallops. PULMONARY: Chest is clear to auscultation, no wheezing or crackles. ABDOMEN: Soft, nontender, nondistended, normoactive bowel sounds. No palpable organomegaly. MUSCULOSKELETAL: No joint swelling or deformity. EXTREMITIES: No cyanosis, clubbing, or pedal edema. NEUROLOGICAL: No focal deficits noted, diffusely weak requiring assistance SKIN: No rashes. - Labs CBC & Chem 7: 11/02/20 05:50 11/02/20 05:46 Labs: Abnormal Lab Results - Last 24 Hours (Table) 11/02/20 11/02/20 Range/Units 05:46 05:50 WBC 11.7 H (3.8-10.6) k/uL RBC 3.87 L (4.30-5.90) m/uL Hgb 11.1 L (13.0-17.5) gm/dL Hct 37.0 L (39.0-53.0) % MCHC 29.9 L (31.0-37.0) g/dL RDW 16.7 H (11.5-15.5) % Neutrophils # 9.1 H (1.3-7.7) k/uL Sodium 133 L (137-145) mmol/L Carbon Dioxide 32 H (22-30) mmol/L BUN 34 H (9-20) mg/dL Calcium 7.8 L (8.4-10.2) mg/dL Microbiology - Last 24 Hours (Table) 10/31/20 13:50 Blood Culture Gram Stain - Preliminary Blood Blood Culture - Preliminary Coagulase Negative Staph 10/31/20 11:57 Urine Culture - Preliminary Urine,Catheterized Gram Neg Bacilli Assessment and Plan Assessment: -Severe toxic and metabolic encephalopathy: Toxic encephalopathy secondary to opiates and also acute renal failure and patient is on long-acting opiates which is being held. Patient may have urinary tract infection as well patient will be continued on Rocephin opiates will be discontinued neurology will be consulted EEG will be ordered patient may have some metabolic encephalopathy from dehydration as well, and patient improving and neurology following -Acute renal failure: Prerenal azotemia secondary to dehydration which is secondary to diuretics, diuretics will be held patient had a normal ejection fraction the past -Possible bacteremia with blood culture showing coagulase negative staph as a possible contamination although will await for culture finalization and repeat blood cultures have been obtained and pending. Infectious disease following. -Hypervolemic hyponatremia sodium is 133 today -Hyperkalemia secondary to dehydration -possible urinary tract infection for which patient continues on IV ceftriaxone while awaiting for cultures to finalize, preliminary cultures showing gram- negative bacilli -Mildly elevated liver enzymes on repeat liver enzymes again tomorrow. May be related to sepsis., Improving -Metastatic squamous cell lung cancer: Patient prognosis appears to be poor patient has metastatic disease and patient is quite weak probably will not be a candidate for chemotherapy or immunotherapy, we'll consult oncology for prognostication -Lactic acidosis secondary to possible sepsis and severe sepsis from urinary tract infection as well as contribution from dehydration -Obesity hypoventilation syndrome and sleep apnea history -Chronic A. fib on anticoagulation will cut down the dose of Eliquis because of renal failure to 2.5 and patient is presently sinus rhythm -Hypertension patient is presently hypotensive -Coronary artery disease Plan: Continue with current medications and continue to avoid IV narcotics. Will restart low-dose [place]. Patient mentation improving although continues to be somewhat confused. Creatinine improved. Neurology following and planning on EEG which is currently pending. Preliminary urine culture showing gram-negative bacilli and initial blood cultures showing coagulase-negative staph and will await finalization. Infectious disease is following and patient is maintained on IV ceftriaxone and will continue. Case management and social work also following this patient is high risk for multiple hospital readmissions and has recently gone to [facility] which family is not willing to let him go back to and would like him to go home with palliative care and Homecare as needed. Continue to encourage oral intake and activity as tolerated. PT/OT to evaluate the patient. Prognosis remains poor.
--- NOTE | 2020-11-02 16:08 | PN ---
PROGRESS NOTE DATE OF SERVICE: 11/02/2020 REASON FOR FOLLOWUP: UTI and bacteremia. INTERVAL HISTORY: The patient is currently afebrile. The patient is feeling better today. Breathing comfortably. No chest pain, shortness of breath or cough. No abdominal pain. No diarrhea. Pain to the upper back is currently controlled. PHYSICAL EXAMINATION: Blood pressure 117/78 with a pulse of 70, temperature 98.2. He is 98% on 3 L nasal cannula. General description is an elderly male up in the bed in no distress. RESPIRATORY SYSTEM: Unlabored breathing, clear to auscultation. EXAMINATION OF UPPER BACK: Incision is currently clean with no significant swelling or redness. HEART: S1, S2. Regular rate and rhythm. ABDOMEN: Soft, no tenderness. LABS: Hemoglobin is 11.1, white count of 11.7, BUN of 34, creatinine 0.81. Blood culture with coagulase negative staph. Urine showing Gram-negative. DIAGNOSTIC IMPRESSION AND PLAN: 1. Patient admitted to the hospital with mental status changes which is multifactorial likely with a component of urinary tract infection. Urine showing a Gram-negative. Continue with his Rocephin. 2. Positive blood culture with coagulase negative staph likely skin contaminant. Vancomycin will be discontinued. at the bedside. Questions and concerns were answered. MMODL / IJN: [id number] /
[2020-11-02] MEDS ORDERED: VANCOMYCIN 2,000 MG in SODIUM CHLORIDE 0.9% 500 ML 500 ML IVPB SCH (18:00)
--- NOTE | 2020-11-02 18:25 | P.PN ---
Subjective Progress Note Date: 11/02/20 The patient was seen at bedside and he is feeling better today compared to initial presentation. His is at bedside and feel he is doing much better. Objective - Vital Signs Vital signs: Vital Signs Temp 98.2 F 11/02/20 12:20 Pulse 70 11/02/20 12:20 Resp 18 11/02/20 12:20 BP 117/78 11/02/20 12:20 Pulse Ox 98 11/02/20 12:20 Intake & Output 11/01/20 11/02/20 11/02/20 18:59 06:59 18:59 Weight 127.006 kg 127.006 kg Other: Voiding Method Urinal Urinal Diaper Diaper Incontinent # Voids 2 # Bowel Movements 2 2 - Exam GENERAL: The patient is lying in bed and is not in acute distress. NEUROLOGICAL: Higher mental function: The patient is awake, alert, oriented to self, place and time. Patient is following commands. No aphasia and no neglect. Cranial nerves: The pupils are round, equal and reactive to light and accommodation. Visual devries are full to confrontation throughout. Extraocular movement is intact no nystagmus is noted. Facial sensation is normal to touch throughout. The facial strength is normal throughout. Hearing is normal bilaterally to hand rub. Tongue is midline and moved [id number] without any difficulty. No dysarthria is noted. Shoulder shrug is normal bilaterally. Motor: Gait is deferred. The strength is 4+ to 5- over the left upper extremity (patient stated it was chronic). Otherwise upper are 5/5. While lower are limited because of paint bilateral knee pain. But was able to move legs side to side without difficulty. Ankles are 4/5 and limited because of pain. Normal tone and bulk. No spontaneous movement. Cerebellum: Normal finger to nose bilaterally. Sensation: Sensation is normal to touch throughout. Reflexes (right/left): Patellar are not assess because of pain. Otherwise 2+ throughout excpet ankles are 1+ bilaterally. Plantars are downgoing bilaterally. - Labs CBC & Chem 7: 11/02/20 05:50 11/02/20 05:46 Labs: Abnormal Lab Results - Last 24 Hours (Table) 11/02/20 11/02/20 Range/Units 05:46 05:50 WBC 11.7 H (3.8-10.6) k/uL RBC 3.87 L (4.30-5.90) m/uL Hgb 11.1 L (13.0-17.5) gm/dL Hct 37.0 L (39.0-53.0) % MCHC 29.9 L (31.0-37.0) g/dL RDW 16.7 H (11.5-15.5) % Neutrophils # 9.1 H (1.3-7.7) k/uL Sodium 133 L (137-145) mmol/L Carbon Dioxide 32 H (22-30) mmol/L BUN 34 H (9-20) mg/dL Calcium 7.8 L (8.4-10.2) mg/dL Microbiology - Last 24 Hours (Table) 10/31/20 13:50 Blood Culture Gram Stain - Preliminary Blood Blood Culture - Preliminary Coagulase Negative Staph 10/31/20 11:57 Urine Culture - Preliminary Urine,Catheterized Gram Neg Bacilli Assessment and Plan Assessment: Altered mental status due to multiple factorial: Metabolic encephalopathy (electrolyte imbalance (ONEL, elevated LFT's, hyponatremia, hypocalcemia), septic encephalopathy (UTI with hypotensive with leukocytosis)---improved Myoclonic jerks seems metabolic---resolved Acute urinary tract infection Hypotensive episode with initial leukocytosis is likely septic shock from UTI--improved Elevated LFT's (119/58) Hyponatremia (131) ONEL--resolved History of recurrent small cell lung cancer with mets to Thoracic region s/p radiation Recent Kyphoplasty for pathological fracture of vertebral T9/T10 Atrial fibrillation Myocardial infarction Heart failure s/p pacemaker Coronary artery disease status post stenting Ex-Tobacco use Plan: CT of the head is reported as there is no acute intracranial hemorrhage or mi dline shift is seen. No signature change from prior studies. CT of the cervical spine is reported as there is no acute fracture or dislocation evident in the cervical spine. EEG on 11/01/20: It is an abnormal routine EEG. The background slowing is suggestive of mild to moderate encephalopathy likely due to toxic-metabolic etiology. There are no focal slowing, epileptiform discharges or seizure on the EEG. Please avoid any further hypotensive episodes. Please avoid any Narcotic/Opoid and sedative that will effect patient mentation. We'll defer the rest of the medical measure to the primary team. There is no further work-up needed. Neurology will sign off. Please reconsult if needed. The plan is discussed with the patient and his who is at bedside. Ole Kamara MD Neuro-Hospitalist Time with Patient: Less than 30
[2020-11-03] MEDS: HYDROcodone/APAP 5-325MG 1 EACH TAB PO PRN ×2 (02:04→10:02)
[2020-11-03] MEDS: SODIUM CHLORIDE 0.9% 1,000 ML IV SCH ×3 (02:04→22:16)
[2020-11-03] MEDS: APIXABAN 2.5 MG TABLET PO SCH ×2 (08:04→20:00)
[2020-11-03] MEDS: SENNOSIDES 8.6 MG TAB PO SCH ×3 (08:04→20:00)
[2020-11-03] MEDS: carvediloL 3.125 MG TAB PO SCH ×2 (08:04→18:05)
[2020-11-03] MEDS: TAMSULOSIN 0.4 MG CAP.ER.24H PO SCH (08:04)
[2020-11-03] MEDS: FAMOTIDINE 20 MG TAB PO SCH ×2 (08:04→20:00)
[2020-11-03 09:07] LABS: Anisocytosis Slight; Basophils % (A) 0 %; Eosinophils # (A) 0.3 k/uL (0-0.7); Eosinophils % (A) 4 %; HCT 34.2 % (39.0-53.0); HGB 10.8 gm/dL (13.0-17.5); Hypochromasia Moderate; Lymphocytes # (A) 1.3 k/uL (1.0-4.8); Lymphocytes % (A) 14 %; MCH 29.5 pg (25.0-35.0); MCHC 31.7 g/dL (31.0-37.0); MCV 93.2 fL (80.0-100.0); Mean Platelet Volume 7.7; Monocytes # (A) 0.5 k/uL (0-1.0); Monocytes % (A) 5 %; Neutrophils % (A) 75 %; Platelet Count 168 k/uL (150-450); Poikilocytosis Slight; RBC 3.67 m/uL (4.30-5.90); RDW 16.5 % (11.5-15.5); WBC 9.4 k/uL (3.8-10.6)
[2020-11-03 09:16] LABS: ALT 46 U/L (4-49); AST 76 U/L (17-59); African American GFR (CKD) >90 (>60 ml/min/1.73 sqM); Albumin 2.1 g/dL (3.5-5.0); Albumin/Globulin Ratio 0.7; Alkaline Phosphatase 230 U/L (38-126); Anion Gap 4 mmol/L; Blood Urea Nitrogen 20 mg/dL (9-20); Calcium 7.7 mg/dL (8.4-10.2); Carbon Dioxide 28 mmol/L (22-30); Chloride 105 mmol/L (98-107); Globulin 3.1 g/dL; Glucose 89 mg/dL (74-99); Non-African American GFR(CKD) >90 (>60 ml/min/1.73 sqM); Potassium 3.9 mmol/L (3.5-5.1); Sodium 137 mmol/L (137-145); Total Bilirubin 0.8 mg/dL (0.2-1.3); Total Protein 5.2 g/dL (6.3-8.2)
[2020-11-03] MEDS ORDERED: HYDROcodone/APAP 10-325MG 1 EACH TAB PO ONE (12:15)
--- NOTE | 2020-11-03 16:12 | PN ---
PROGRESS NOTE DATE OF SERVICE: 11/03/2020 REASON FOR FOLLOWUP: 1. Urinary tract infection. 2. Positive blood culture. INTERVAL HISTORY: Patient is currently afebrile, has been complaining of more pain to the back area with current dose of his pain medication. No chest pain, cough, abdominal pain, no diarrhea or any changes reported by his at the bedside. PHYSICAL EXAMINATION: Blood pressure 137/66, pulse of 83, temperature 97.8. He is 97% on 3 L nasal cannula. GENERAL DESCRIPTION: An elderly male lying in bed in no distress. RESPIRATORY SYSTEM: Unlabored breathing, decreased breath sounds at the bases, no wheeze. HEART: S1, S2. Regular rate and rhythm. ABDOMEN: Soft, no tenderness. LABS: Hemoglobin is 10.8, white count 9.4, BUN of 20, creatinine 0.51. Urine with E coli, sensitive pathogen. Repeat blood cultures have been negative. DIAGNOSTIC IMPRESSION AND PLAN: 1. Patient with positive blood culture with coagulase negative staph, likely skin contamination. Repeat blood culture has been negative. The patient does not need vancomycin at this point. 2. Patient with UTI with E coli in the culture. Sensitive pathogen. Patient covered with Rocephin to continue and monitor clinical course closely. MMODL / IJN: [id number] /
[2020-11-03] MEDS: HYDROcodone/APAP 7.5-325MG 1 EACH TAB PO PRN (18:05)
[2020-11-04] MEDS: HYDROcodone/APAP 7.5-325MG 1 EACH TAB PO PRN ×2 (00:36→05:32)
[2020-11-04] MEDS ORDERED: VANCOMYCIN TROUGH DUE 1 EACH MISC MISCELLANE ONE (05:00)
[2020-11-04] MEDS: SODIUM CHLORIDE 0.9% 1,000 ML IV SCH ×2 (05:35→17:20)
[2020-11-04] MEDS: SENNOSIDES 8.6 MG TAB PO SCH ×2 (09:03→21:07)
[2020-11-04] MEDS: carvediloL 3.125 MG TAB PO SCH ×2 (09:03→17:20)
[2020-11-04] MEDS: TAMSULOSIN 0.4 MG CAP.ER.24H PO SCH (09:03)
[2020-11-04] MEDS: FAMOTIDINE 20 MG TAB PO SCH ×2 (09:03→21:06)
[2020-11-04] MEDS: APIXABAN 2.5 MG TABLET PO SCH ×2 (09:03→21:04)
[2020-11-04] MEDS ORDERED: MORPHINE SULFATE 4 MG/ML SYRINGE IVP STA (10:28)
[2020-11-04] MEDS: GABAPENTIN 300 MG CAP PO SCH ×3 (10:47→22:10)
[2020-11-04] MEDS ORDERED: LACTULOSE 20 GM/30 ML CUP PO PRN (11:04)
--- NOTE | 2020-11-04 11:13 | P.PN ---
Subjective Progress Note Date: 11/03/20 Principal diagnosis: Severe toxic and metabolic encephalopathy secondary to opiates and acute renal failure Acute renal failure Hypervolemic hyponatremia Urinary tract infection Lactic acidosis secondary to possible sepsis Metastatic squamous cell lung cancer 74-year-old male came into emergency department with compensative generalized weakness patient is unable to provide any history to me as patient is severely encephalopathic although patient upon further questioning does answer questions appropriately. Patient has a severe myoclonic activity secondary to severe encephalopathy. Patient does have acute renal failure with elevated creatinine of 1.5 with baseline being normal patient is also on diuretic therapy. Patient had leukocytosis no fever at this time. Patient has highly elevated red blood cell count of 20,000. Urine is significantly abnormal patient was started on Rocephin. 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 Patient subsequently had pathological fracture patient had a surgery for that and was subsequently discharged to subacute rehabilitation. Patient was not started on any chemotherapy as patient is needing rehabilitation at this time. Patient is unable to much of history. Patient is also hyponatremic with elevated potassium. Patient the had a chest x-ray did not show any significant abnormality CT of the head and cervical spine did not show any intracranial bleed or midline shift her metastatic lesions that were evident. Patient was hyperkalemic as well. Troponins are negative. 11/03/2020 Patient is seen and evaluated in room with family at bedside; reports continued to complain of pain; patient is sleeping in bed and is sleepy but arousable Vital signs remained stable with a temperature of 98, pulse 78, respiration 20 and blood pressure 102/66; antihypertensive therapy remains on hold due to softer blood pressures Labs are reviewed and reveal a normal white blood count of 9.4 chest trended down from 20.3 on admission; hemoglobin stable at 10.8; chemical profile stable with sodium of 137, potassium 3.9, BUN/creatinine of 20/0.51 Patient remains on IV Rocephin for UTI; final urine culture growing E. coli which is sensitive to Rocephin; initial blood cultures grew staph epidermidis possible contamination; repeat blood cultures are negative so far Objective - Vital Signs Vital signs: Vital Signs Temp 97.6 F 11/03/20 06:21 Pulse 80 11/03/20 06:21 Resp 20 11/03/20 11:18 BP 121/72 11/03/20 06:21 Pulse Ox 98 11/03/20 06:21 Intake & Output 11/02/20 11/03/20 11/03/20 18:59 06:59 18:59 Intake Total 2420 Output Total 200 Balance 2220 Weight 127.006 kg Intake: Intake, IV Titration 1200 Amount Sodium Chloride 0.9% 1, 1200 000 ml @ 100 mls/hr IV . Q10H [facility] Rx#:[id number] Oral 1220 Output: Urine 200 Other: Voiding Method Urinal Urinal Urinal Diaper Diaper Diaper Incontinent Incontinent Incontinent # Voids 3 4 # Bowel Movements 2 - Exam PHYSICAL EXAMINATION: GENERAL: The patient is alert and oriented x3, not in any acute distress. Well developed, well nourished. HEENT: Pupils are round and equally reacting to light. EOMI. No scleral icterus. No conjunctival pallor. Normocephalic, atraumatic. No pharyngeal erythema. No thyromegaly. CARDIOVASCULAR: S1 and S2 present. No murmurs, rubs, or gallops. PULMONARY: Chest is clear to auscultation, no wheezing or crackles. ABDOMEN: Soft, nontender, nondistended, normoactive bowel sounds. No palpable organomegaly. MUSCULOSKELETAL: No joint swelling or deformity. EXTREMITIES: No cyanosis, clubbing, or pedal edema. NEUROLOGICAL: Gross neurological examination did not reveal any focal deficits. SKIN: No rashes. - Labs CBC & Chem 7: 11/03/20 08:26 11/03/20 08:26 Labs: Abnormal Lab Results - Last 24 Hours (Table) 11/03/20 11/03/20 Range/Units 08:26 08:26 RBC 3.67 L (4.30-5.90) m/uL Hgb 10.8 L (13.0-17.5) gm/dL Hct 34.2 L (39.0-53.0) % RDW 16.5 H (11.5-15.5) % Creatinine 0.51 L (0.66-1.25) mg/dL Calcium 7.7 L (8.4-10.2) mg/dL AST 76 H (17-59) U/L Alkaline Phosphatase 230 H (38-126) U/L Total Protein 5.2 L (6.3-8.2) g/dL Albumin 2.1 L (3.5-5.0) g/dL Microbiology - Last 24 Hours (Table) 10/31/20 13:50 Blood Culture Gram Stain - Final Blood Blood Culture - Preliminary Staphylococcus epidermidis 10/31/20 11:57 Urine Culture - Final Urine,Catheterized Escherichia coli 11/01/20 18:05 Blood Culture - Preliminary Blood No Growth after 24 hours Assessment and Plan Assessment: -Severe toxic and metabolic encephalopathy: Toxic encephalopathy secondary to opiates and also acute renal failure and patient is on long-acting opiates which is being held. Patient may have urinary tract infection as well patient will be continued on Rocephin opiates will be discontinued neurology will be consulted EEG will be ordered patient may have some metabolic encephalopathy from dehydration as well, and patient improving and neurology following -Acute renal failure: Prerenal azotemia secondary to dehydration which is secondary to diuretics, diuretics will be held patient had a normal ejection fraction the past -Possible bacteremia with blood culture showing coagulase negative staph as a possible contamination although will await for culture finalization and repeat blood cultures have been obtained and pending. Infectious disease following. -Hypervolemic hyponatremia sodium is 133 today -Hyperkalemia secondary to dehydration -possible urinary tract infection for which patient continues on IV ceftriaxone while awaiting for cultures to finalize, preliminary cultures showing gram- negative bacilli -Mildly elevated liver enzymes on repeat liver enzymes again tomorrow. May be related to sepsis., Improving -Metastatic squamous cell lung cancer: Patient prognosis appears to be poor patient has metastatic disease and patient is quite weak probably will not be a candidate for chemotherapy or immunotherapy, we'll consult oncology for prognostication -Lactic acidosis secondary to possible sepsis and severe sepsis from urinary tract infection as well as contribution from dehydration -Obesity hypoventilation syndrome and sleep apnea history -Chronic A. fib on anticoagulation will cut down the dose of Eliquis because of renal failure to 2.5 and patient is presently sinus rhythm -Hypertension patient is presently hypotensive -Coronary artery disease Plan: Continue with current medications and continue to avoid IV narcotics. Will restart low-dose [place]. Patient mentation improving although continues to be somewhat confused. Creatinine improved. Neurology following and planning on EEG which is currently pending. Preliminary urine culture showing gram-negative bacilli and initial blood cultures showing coagulase-negative staph and will await finalization. Infectious disease is following and patient is maintained on IV ceftriaxone and will continue. Case management and social work also following this patient is high risk for multiple hospital readmissions and has recently gone to [facility] which family is not willing to let him go back to and would like him to go home with palliative care and Homecare as needed. Continue to e ncourage oral intake and activity as tolerated. PT/OT to evaluate the patient. Prognosis remains poor.
[2020-11-04] MEDS: oxyCODONE ER 20 MG TAB.ER.12H PO SCH ×2 (12:27→21:06)
--- NOTE | 2020-11-04 16:15 | P.PN ---
Subjective Progress Note Date: 11/04/20 The patient had developed severe exacerbation of pain today. [place] was discontinued and he was placed back on his home medication regimen, that had been discontinued at the time of his admission this time, it was mental status changes. He feels much more comfortable. Generalized weakness persists but is improved. Mental status is much clearer. Objective - Vital Signs Vital signs: Vital Signs Temp 97.6 F 11/04/20 12:06 Pulse 80 11/04/20 12:06 Resp 19 11/04/20 12:06 BP 127/81 11/04/20 12:06 Pulse Ox 98 11/04/20 12:06 Intake & Output 11/03/20 11/04/20 11/04/20 18:59 06:59 18:59 Intake Total 50 1760 Output Total 450 Balance 50 1310 Intake: Intake, IV Titration 50 1200 Amount Sodium Chloride 0.9% 1, 1200 000 ml @ 100 mls/hr IV . Q10H [facility] Rx#:[id number] cefTRIAXone 1 gm In 50 Sodium Chloride 0.9% 50 ml @ 100 mls/hr IVPB Q24HR [facility] Rx#:[id number] Oral 560 Output: Urine 450 Other: Voiding Method Urinal Urinal Urinal Diaper Diaper Diaper Incontinent Incontinent Incontinent # Voids 4 - Constitutional General appearance: Present: no acute distress - EENT Eyes: Present: EOMI ENT: Present: hearing grossly normal, normal oropharynx - Respiratory Respiratory: bilateral: CTA - Cardiovascular Rhythm: regular Heart sounds: normal: S1, S2 - Gastrointestinal General gastrointestinal: Present: normal bowel sounds, soft - Integumentary Integumentary: Present: normal - Neurologic Neurologic: Present: CNII-XII intact - Musculoskeletal Musculoskeletal Comment(s): Bilateral lower extremity weakness Musculoskeletal: Present: generalized weakness, strength equal bilaterally - Psychiatric Psychiatric: Present: A&O x's 3, appropriate affect - Labs CBC & Chem 7: 11/03/20 08:26 11/03/20 08:26 Labs: Microbiology - Last 24 Hours (Table) 11/02/20 11:52 Blood Culture - Preliminary Blood No Growth after 48 hours 10/31/20 13:50 Blood Culture Gram Stain - Final Blood Blood Culture - Final Staphylococcus epidermidis 11/01/20 18:05 Blood Culture - Preliminary Blood No Growth after 48 hours Assessment and Plan (1) Intractable back pain Narrative/Plan: This is because of cancer involvement. The patient had major flare up of pain today 3 due to change in regimen when he was admitted this time. His home regimen was discontinued for concerns that it was the reason for his altered mental status. It was confirmed with family, that the patient had been on the home regimen for several weeks without any issues. Therefore the altered mental status was not felt to be related to that, and was much more likely clinically due to his UTI. - The patient was therefore placed back on long-acting oxycodone, oxycodone IR, and gabapentin. He feels much more comfortable. Continue current regimen Current Visit: No Status: Acute Code(s): M54.9 - DORSALGIA, UNSPECIFIED SNOMED Code(s): 515304722 (2) Myopathy Narrative/Plan: Lower extremity strength continues to be quite compromised. He is working with physical therapy. At this time the plan from the family is to take him home and continue physical therapy at home. Current Visit: Yes Status: Acute Code(s): G72.9 - MYOPATHY, UNSPECIFIED SNOMED Code(s): 019737460 (3) UTI (urinary tract infection) Narrative/Plan: Patient is much improved since admission with antibiotics and hydration. Culture was positive for E. coli, sensitive to cephalosporins. Defer to the admitting service and ID for continued management Current Visit: Yes Status: Acute Code(s): N39.0 - URINARY TRACT INFECTION, SITE NOT SPECIFIED SNOMED Code(s): 39785691 (4) Squamous cell carcinoma of lung, stage IV Narrative/Plan: It was discussed with the family, that if the patient's performance status improved sufficiently, he can be a candidate for immunotherapy as an outpatient. He will follow up as an outpatient in the office Current Visit: No Status: Acute Priority: High Code(s): C34.90 - MALIGNANT NEOPLASM OF UNSP PART OF UNSP BRONCHUS OR LUNG SNOMED Code(s): 071765003
[2020-11-04] MEDS: ASCORBIC ACID 500 MG TAB PO SCH (21:04)
[2020-11-04] MEDS: CALCIUM CARB-VIT D 500 MG-5 MCG TAB PO SCH (21:06)
[2020-11-04] MEDS: CHOLECALCIFEROL 25 MCG (1000 IU) TABLET PO SCH (21:07)
--- NOTE | 2020-11-05 02:50 | P.PN ---
Subjective Progress Note Date: 11/04/20 Principal diagnosis: Severe toxic and metabolic encephalopathy secondary to opiates and acute renal failure Acute renal failure Hypervolemic hyponatremia Urinary tract infection Lactic acidosis secondary to possible sepsis Metastatic squamous cell lung cancer 74-year-old male came into emergency department with compensative generalized weakness patient is unable to provide any history to me as patient is severely encephalopathic although patient upon further questioning does answer questions appropriately. Patient has a severe myoclonic activity secondary to severe encephalopathy. Patient does have acute renal failure with elevated creatinine of 1.5 with baseline being normal patient is also on diuretic therapy. Patient had leukocytosis no fever at this time. Patient has highly elevated red blood cell count of 20,000. Urine is significantly abnormal patient was started on Rocephin. 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 Patient subsequently had pathological fracture patient had a surgery for that and was subsequently discharged to subacute rehabilitation. Patient was not started on any chemotherapy as patient is needing rehabilitation at this time. Patient is unable to much of history. Patient is also hyponatremic with elevated potassium. Patient the had a chest x-ray did not show any significant abnormality CT of the head and cervical spine did not show any intracranial bleed or midline shift her metastatic lesions that were evident. Patient was hyperkalemic as well. Troponins are negative. 11/03/2020 Patient is seen and evaluated in room with family at bedside; reports continued to complain of pain; patient is sleeping in bed and is sleepy but arousable Vital signs remained stable with a temperature of 98, pulse 78, respiration 20 and blood pressure 102/66; antihypertensive therapy remains on hold due to softer blood pressures Labs are reviewed and reveal a normal white blood count of 9.4 chest trended down from 20.3 on admission; hemoglobin stable at 10.8; chemical profile stable with sodium of 137, potassium 3.9, BUN/creatinine of 20/0.51 Patient remains on IV Rocephin for UTI; final urine culture growing E. coli which is sensitive to Rocephin; initial blood cultures grew staph epidermidis possible contamination; repeat blood cultures are negative so far 11/04/2020 Patient is seen and evaluated in room at bedside and discussed with nursing staff; continue to complain of severe pain in back and knee which is not relieved by [place] at 7.5 mg; per nursing staff patient has not been eating well due to uncontrolled pain; patient oxycodone extended release 20 mg every 12 hours along with oxycodone IR 5 mg every 6 hours at home which was held due to marked alteration in mental status; patient is more awake and alert and responsive; does have history of metastatic colon cancer; we will resume home pain regimen with oxycodone and discontinue [place] Vital signs are reviewed and stable with a temperature of 97.4, pulse 80, respiration 20 and blood pressure of 126/75; patient remains on O2 at 3 L per minute nasal cannula saturating above 95% Remains on IV Rocephin; ID on board and recommending to continue with current dose of Rocephin for UTI; repeat blood cultures have been negative so far and vancomycin is discontinued Objective - Vital Signs Vital signs: Vital Signs Temp 97.4 F L 11/04/20 05:00 Pulse 80 11/04/20 05:00 Resp 20 11/04/20 05:00 BP 126/75 11/04/20 05:00 Pulse Ox 95 11/04/20 05:00 Intake & Output 11/03/20 11/04/20 11/04/20 18:59 06:59 18:59 Intake Total 50 1760 Output Total 450 Balance 50 1310 Intake: Intake, IV Titration 50 1200 Amount Sodium Chloride 0.9% 1, 1200 000 ml @ 100 mls/hr IV . Q10H [facility] Rx#:[id number] cefTRIAXone 1 gm In 50 Sodium Chloride 0.9% 50 ml @ 100 mls/hr IVPB Q24HR [facility] Rx#:[id number] Oral 560 Output: Urine 450 Other: Voiding Method Urinal Urinal Diaper Diaper Incontinent Incontinent # Voids 4 - Exam PHYSICAL EXAMINATION: GENERAL: The patient is alert and oriented x3, not in any acute distress. Well developed, well nourished. HEENT: Pupils are round and equally reacting to light. EOMI. No scleral icterus. No conjunctival pallor. Normocephalic, atraumatic. No pharyngeal erythema. No thyromegaly. CARDIOVASCULAR: S1 and S2 present. No murmurs, rubs, or gallops. PULMONARY: Chest is clear to auscultation, no wheezing or crackles. ABDOMEN: Soft, nontender, nondistended, normoactive bowel sounds. No palpable organomegaly. MUSCULOSKELETAL: No joint swelling or deformity. EXTREMITIES: No cyanosis, clubbing, or pedal edema. NEUROLOGICAL: Gross neurological examination did not reveal any focal deficits. SKIN: No rashes. - Labs CBC & Chem 7: 11/03/20 08:26 11/03/20 08:26 Labs: Microbiology - Last 24 Hours (Table) 10/31/20 13:50 Blood Culture Gram Stain - Final Blood Blood Culture - Final Staphylococcus epidermidis 11/01/20 18:05 Blood Culture - Preliminary Blood No Growth after 48 hours 11/02/20 11:52 Blood Culture - Preliminary Blood No Growth after 24 hours Assessment and Plan Assessment: -Severe toxic and metabolic encephalopathy: Toxic encephalopathy secondary to opiates and also acute renal failure and patient is on long-acting opiates which is being held. Patient may have urinary tract infection as well patient will be continued on Rocephin opiates will be discontinued neurology will be consulted EEG will be ordered patient may have some metabolic encephalopathy from dehydration as well, and patient improving and neurology following -Acute renal failure: Prerenal azotemia secondary to dehydration which is secondary to diuretics, diuretics will be held patient had a normal ejection fraction the past -Possible bacteremia with blood culture showing coagulase negative staph as a possible contamination although will await for culture finalization and repeat blood cultures have been obtained and pending. Infectious disease following. -Hypervolemic hyponatremia sodium is 133 today -Hyperkalemia secondary to dehydration -possible urinary tract infection for which patient continues on IV ceftriaxone while awaiting for cultures to finalize, preliminary cultures showing gram- negative bacilli -Mildly elevated liver enzymes on repeat liver enzymes again tomorrow. May be related to sepsis., Improving -Metastatic squamous cell lung cancer: Patient prognosis appears to be poor patient has metastatic disease and patient is quite weak probably will not be a candidate for chemotherapy or immunotherapy, we'll consult oncology for prognostication -Lactic acidosis secondary to possible sepsis and severe sepsis from urinary tract infection as well as contribution from dehydration -Obesity hypoventilation syndrome and sleep apnea history -Chronic A. fib on anticoagulation will cut down the dose of Eliquis because of renal failure to 2.5 and patient is presently sinus rhythm -Hypertension patient is presently hypotensive -Coronary artery disease Plan: Continue with current medications and continue to avoid IV narcotics. Will restart low-dose [place]. Patient mentation improving although continues to be somewhat confused. Creatinine improved. Neurology following and planning on EEG which is currently pending. Preliminary urine culture showing gram-negative bacilli and initial blood cultures showing coagulase-negative staph and will await finalization. Infectious disease is following and patient is maintained on IV ceftriaxone and will continue. Case management and social work also following this patient is high risk for multiple hospital readmissions and has recently gone to [facility] which family is not willing to let him go back to and would like him to go home with palliative care and Homecare as needed. Continue to encourage oral intake and activity as tolerated. PT/OT to evaluate the patient. Prognosis remains poor.
--- NOTE | 2020-11-05 05:19 | PN ---
PROGRESS NOTE DATE OF SERVICE: 11/04/2020 REASON FOR FOLLOWUP: 1. E coli UTI. 2. Positive blood culture likely contamination. INTERVAL HISTORY: The patient is currently afebrile. The patient is complaining about his pain medication cut back and was miserable last night because of the pain. The patient denies having any chest pain, shortness of breath or cough. No nausea, no vomiting. No diarrhea. PHYSICAL EXAMINATION: Blood pressure is 123/76, pulse of 80, temperature 97.5. He is 97% on 3 L nasal cannula. General description is an elderly male lying in bed in no distress. Respiratory system: Unlabored breathing, clear to auscultation anteriorly. Heart S1, S2. Regular rate and rhythm. ABDOMEN: Soft, no tenderness. LABS: Hemoglobin is 10.8, white count 9.4, BUN of 20, creatinine 0.51. DIAGNOSTIC IMPRESSION AND PLAN: 1. Patient with positive blood culture, Staph epi likely skin contamination. Repeat blood culture negative. Currently off vancomycin. 2. Patient with E coli urinary tract infection covered with Rocephin. Finish short course of oral Ceftin. Family at the bedside. Questions and concerns were answered. MMODL / IJN: [id number] / [id number]
[2020-11-05] MEDS: FUROSEMIDE 20 MG TAB PO SCH (05:27)
[2020-11-05] MEDS: SODIUM CHLORIDE 0.9% 1,000 ML IV SCH ×3 (06:10→19:30)
[2020-11-05] MEDS: SENNOSIDES 8.6 MG TAB PO SCH ×2 (09:05→20:39)
[2020-11-05] MEDS: FAMOTIDINE 20 MG TAB PO SCH ×2 (09:05→20:39)
[2020-11-05] MEDS: APIXABAN 2.5 MG TABLET PO SCH ×2 (09:05→20:39)
[2020-11-05] MEDS: carvediloL 3.125 MG TAB PO SCH ×2 (09:05→16:33)
[2020-11-05] MEDS: GABAPENTIN 300 MG CAP PO SCH ×3 (09:05→20:39)
[2020-11-05] MEDS: TAMSULOSIN 0.4 MG CAP.ER.24H PO SCH (09:05)
[2020-11-05] MEDS: oxyCODONE ER 20 MG TAB.ER.12H PO SCH ×2 (09:28→20:39)
--- NOTE | 2020-11-05 15:43 | P.PN ---
Subjective Progress Note Date: 11/05/20 74-year-old male came into emergency department with compensative generalized weakness patient is unable to provide any history to me as patient is severely encephalopathic although patient upon further questioning does answer questions appropriately. Patient has a severe myoclonic activity secondary to severe encephalopathy. Patient does have acute renal failure with elevated creatinine of 1.5 with baseline being normal patient is also on diuretic therapy. Patient had leukocytosis no fever at this time. Patient has highly elevated red blood cell count of 20,000. Urine is significantly abnormal patient was started on Rocephin. Patient does have history of first, cell lung cancer which was d iagnosed because of metastatic lesions to lumbar spine. Patient subsequently had pathological fracture patient had a surgery for that and was subsequently discharged to subacute rehabilitation. Patient was not started on any chemotherapy as patient is needing rehabilitation at this time. Patient is unable to much of history. Patient is also hyponatremic with elevated potassium. Patient the had a chest x-ray did not show any significant abnormality CT of the head and cervical spine did not show any intracranial bleed or midline shift her metastatic lesions that were evident. Patient was h yperkalemic as well. Troponins are negative. 11/01/2020 Patient is seen and evaluated in follow-up continues to be extremely weak with back pain and mentation improved today. Patient was started on IV fluids and sodium slightly improved at 132 with a potassium of 4.8, BUN is 50 and creatinine slightly improved at 1.10. Lactic acid also improved and is currently 1.0. Patient continues on 2-3 L of oxygen via nasal cannula and is normally 2-3 L at home. Blood pressures on the lower side and being closely monitored. Patient continues on IV ceftriaxone and received a notification that blood cultures were positive for gram-positive cocci and repeat blood cultures were ordered and infectious disease was consulted and currently pending. Urine cultures not resulted yet. Oncology also following. Case management also following this patient and family want to return home and will continue with palliative care and referral was placed. Patient was on a number of pain medications for chronic back pain which are currently on hold as patient came in with increased confusion. 11/02/2020 Patient is seen in follow-up continues to be weak requiring assistance and mentation is improved today. Patient was able to get up with assistance to the chair today. Patient will work with physical therapy. Patient is having more pain and discuss with family along with the patient at the bedside and will add [place] low-dose and monitor closely. Blood cultures showing coagulase-negative staph and will await for culture finalization and repeat blood cultures pending and urine culture preliminary showing gram-negative bacilli and patient is maintained on ceftriaxone and will continue at this time. White blood count trending down at 11.7 hemoglobin is stable at 11.1, sodium is 133 with a pota ssium of 4.1 and creatinine improved at 0.81. Patient encouraged to increase oral intake and increase activity as tolerated. 11/03/2020 Patient is seen and evaluated in room with family at bedside; reports continued to complain of pain; patient is sleeping in bed and is sleepy but arousable Vital signs remained stable with a temperature of 98, pulse 78, respiration 20 and blood pressure 102/66; antihypertensive therapy remains on hold due to softer blood pressures Labs are reviewed and reveal a normal white blood count of 9.4 chest trended down from 20.3 on admission; hemoglobin stable at 10.8; chemical profile stable with sodium of 137, potassium 3.9, BUN/creatinine of 20/0.51 Patient remains on IV Rocephin for UTI; final urine culture growing E. coli which is sensitive to Rocephin; initial blood cultures grew staph epidermidis possible contamination; repeat blood cultures are negative so far 11/04/2020 Patient is seen and evaluated in room at bedside and discussed with nursing sta ff; continue to complain of severe pain in back and knee which is not relieved by [place] at 7.5 mg; per nursing staff patient has not been eating well due to uncontrolled pain; patient oxycodone extended release 20 mg every 12 hours along with oxycodone IR 5 mg every 6 hours at home which was held due to marked alteration in mental status; patient is more awake and alert and responsive; does have history of metastatic colon cancer; we will resume home pain regimen with oxycodone and discontinue [place] Vital signs are reviewed and stable with a temperature of 97.4, pulse 80, respiration 20 and blood pressure of 126/75; patient remains on O2 at 3 L per minute nasal cannula saturating above 95% Remains on IV Rocephin; ID on board and recommending to continue with current dose of Rocephin for UTI; repeat blood cultures have been negative so far and vancomycin is discontinued 11/05/2020 Patient is seen in follow-up currently sitting up in the chair and per nursing staff patient has continued weakness requiring assistance. Plan is for the patient to return home with the help of family and palliative care. Patient will also follow-up with oncology outpatient and discuss further treatment options moving forward. Case management following and working on discharge planning needs and patient will require a hospital bed as he needs head the bed elevated 30-45 at all times secondary to his congestive heart failure, position changes and pain relief secondary to metastatic cancer pain. Patient was maintained on IV ceftriaxone and we'll transition to a short course of oral on discharge. Most recent blood cultures have remained negative and initial blood cultures most likely contaminant. Patient was resumed on oral narcotic med regimen from previous admission per oncology as patient has multiple issues with pain management and this was discussed in detail with patient about the acute kidney injury and renal failure and altered mental status most likely secondary to narcotic pain medication use. This was also discussed with Lauren who is his caregiver. Review of systems: Constitutional: No reports of fatigue, fever, or chills Cardiovascular: No reports of chest pain or palpitations Respiratory: No reports of shortness of breath or cough GI: No reports of nausea, vomiting, or diarrhea : No reports of dysuria or retention Neurovascular: Reports generalized weakness All medications have been reviewed Objective - Vital Signs Vital signs: Vital Signs Temp 98.0 F 11/05/20 12:54 Pulse 56 L 11/05/20 12:54 Resp 17 11/05/20 12:54 BP 84/60 11/05/20 12:54 Pulse Ox 97 11/05/20 12:54 Intake & Output 11/04/20 11/05/20 11/05/20 18:59 06:59 18:59 Intake Total 50 1500 Balance 50 1500 Intake: Intake, IV Titration 50 1200 Amount Sodium Chloride 0.9% 1, 1200 000 ml @ 100 mls/hr IV . Q10H [facility] Rx#:[id number] cefTRIAXone 1 gm In 50 Sodium Chloride 0.9% 50 ml @ 100 mls/hr IVPB Q24HR [facility] Rx#:[id number] Oral 300 Other: Voiding Method Urinal Urinal Urinal Diaper Diaper Diaper Incontinent # Voids 4 - Exam GENERAL: Patient is awake, alert and oriented 2-3, not in any acute distress. Well developed, well nourished. Obese. Patient also did lose weight significantly compared to his previous hospital visits HEENT: Pupils are round and equally reacting to light. EOMI. No scleral icterus. No conjunctival pallor. Normocephalic, atraumatic. No pharyngeal erythema. No thyromegaly. Patient does have droopy eyelids CARDIOVASCULAR: S1 and S2 present. No murmurs, rubs, or gallops. PULMONARY: Chest is clear to auscultation, no wheezing or crackles. ABDOMEN: Soft, nontender, nondistended, normoactive bowel sounds. No palpable organomegaly. MUSCULOSKELETAL: No joint swelling or deformity. EXTREMITIES: No cyanosis, clubbing, or pedal edema. NEUROLOGICAL: No focal deficits noted, diffusely weak requiring assistance SKIN: No rashes. - Labs CBC & Chem 7: 11/03/20 08:26 11/03/20 08:26 Labs: Microbiology - Last 24 Hours (Table) 11/01/20 18:05 Blood Culture - Preliminary Blood No Growth after 72 hours 11/02/20 11:52 Blood Culture - Preliminary Blood No Growth after 48 hours 10/31/20 13:50 Blood Culture Gram Stain - Final Blood Blood Culture - Final Staphylococcus epidermidis Assessment and Plan Assessment: -Severe toxic and metabolic encephalopathy: Toxic encephalopathy secondary to o piates and also acute renal failure and patient is on long-acting opiates which were initially held. Patient's at home narcotic medication has been resumed per oncology -Acute renal failure: Prerenal azotemia secondary to dehydration which is secondary to diuretics, diuretics will be held patient had a normal ejection fraction the past -Possible bacteremia with blood culture showing coagulase negative staph and finalized showing Staphylococcus epidermidis which is most likely contamination. Most recent blood cultures repeated and remained negative. Infectious disease following. -Hypervolemic hyponatremia, improved -Hyperkalemia secondary to dehydration, improved -Acute urinary tract infection with cultures finalizing E. coli -Mildly elevated liver enzymes, May be related to sepsis., Improving -Metastatic squamous cell lung cancer: Patient prognosis appears to be poor. patient has metastatic disease and patient is quite weak probably will not be a candidate for chemotherapy or immunotherapy, oncology following and will follow- up outpatient -Lactic acidosis secondary to possible sepsis and severe sepsis from urinary tract infection as well as contribution from dehydration, improved -Obesity hypoventilation syndrome and sleep apnea history -Chronic A. fib on anticoagulation will cut down the dose of Eliquis because of renal failure to 2.5 and patient is presently sinus rhythm -Hypertension patient is presently hypotensive -Coronary artery disease Plan: Continue with current medications. Patient's chronic pain medications and regimen have been resumed by oncology and will continue to monitor closely.. Patient mentation improving. Creatinine improved. Urine cultures finalized showing E. coli and infectious disease following and patient is maintained on IV ceftriaxone and we'll transition to oral short course upon discharge. Most recent blood cultures have been negative and initial blood culture showing Staphylococcus epidermidis which is most likely a contaminant. Case management and social work also following this patient is high risk for multiple hospital readmissions and has recently gone to [facility] which family is not willing to let him go back to and would like him to go home with palliative care and Homecare as needed. Patient will be going home with family and will require a hospital bed upon discharge as his head of the bed needs to be maintained 30-45 at all times to assist with breathing secondary to his congestive heart failure and also req uire a hospital bed to assist with position changes as he has metastatic cancer pain. Continue to encourage oral intake and activity as tolerated. Prognosis remains poor. Anticipate discharge in 24 hours.
--- NOTE | 2020-11-05 18:48 | P.PN ---
Subjective Progress Note Date: 11/05/20 Principal diagnosis: generalized weakness, bone metastases, intractable pain adjusting medications for pain control continues. Objective - Vital Signs Vital signs: Vital Signs Temp 98.0 F 11/05/20 12:54 Pulse 56 L 11/05/20 12:54 Resp 17 11/05/20 12:54 BP 84/60 11/05/20 12:54 Pulse Ox 97 11/05/20 12:54 Intake & Output 11/04/20 11/05/20 11/05/20 18:59 06:59 18:59 Intake Total 50 1500 800 Balance 50 1500 800 Intake: Intake, IV Titration 50 1200 800 Amount Sodium Chloride 0.9% 1, 1200 800 000 ml @ 100 mls/hr IV . Q10H [facility] Rx#:[id number] cefTRIAXone 1 gm In 50 Sodium Chloride 0.9% 50 ml @ 100 mls/hr IVPB Q24HR [facility] Rx#:[id number] Oral 300 Other: Voiding Method Urinal Urinal Urinal Diaper Diaper Diaper Incontinent # Voids 4 - Constitutional General appearance: Present: cooperative, obese - EENT Eyes: Present: anicteric sclerae, EOMI ENT: Present: hearing grossly normal - Respiratory Respiratory: bilateral: CTA - Cardiovascular Heart sounds: normal: S1, S2 - Gastrointestinal General gastrointestinal: Present: normal bowel sounds, soft - Musculoskeletal Musculoskeletal: Present: generalized weakness, strength equal bilaterally - Psychiatric Psychiatric: Present: A&O x's 3, appropriate affect, intact judgment & insight - Labs CBC & Chem 7: 11/03/20 08:26 11/03/20 08:26 Labs: Microbiology - Last 24 Hours (Table) 11/02/20 11:52 Blood Culture - Preliminary Blood No Growth after 72 hours 11/01/20 18:05 Blood Culture - Preliminary Blood No Growth after 72 hours Assessment and Plan (1) Intractable back pain Current Visit: Yes Status: Acute Priority: High Code(s): M54.9 - DORSALGIA, UNSPECIFIED SNOMED Code(s): 080583215 (2) Squamous cell carcinoma of lung, stage IV Narrative/Plan: Patient is a high PD1 expressor, perfect candidate for immunotherapy. Unfortunately, if patient's pain is not able to be managed adequately he will not able to improve his performance status, he will not be a candidate for IO therapy. We will continue to work with patient as well as Attending to try to optimize patient's pain management. Current Visit: Yes Status: Acute Priority: High Code(s): C34.90 - MALIGNANT NEOPLASM OF UNSP PART OF UNSP BRONCHUS OR LUNG SNOMED Code(s): 139181993 Plan: attests: I seen and examined patient, performed H&P, developed impression and plan of care. Discussed with dictator. Agree with dictation, documented as a scribe
[2020-11-05 20:18] VITALS: RESP 18
[2020-11-05] MEDS: ASCORBIC ACID 500 MG TAB PO SCH (20:39)
[2020-11-05] MEDS: CALCIUM CARB-VIT D 500 MG-5 MCG TAB PO SCH (20:39)
[2020-11-05] MEDS: CHOLECALCIFEROL 25 MCG (1000 IU) TABLET PO SCH (20:39)
[2020-11-06 04:22] VITALS: BP 114/58; PULSE 81; TEMP 98.3
[2020-11-06] MEDS: FUROSEMIDE 20 MG TAB PO SCH (06:09)
[2020-11-06] MEDS: GABAPENTIN 300 MG CAP PO SCH (08:21)
[2020-11-06] MEDS: SENNOSIDES 8.6 MG TAB PO SCH (08:21)
[2020-11-06] MEDS: APIXABAN 2.5 MG TABLET PO SCH (08:21)
[2020-11-06] MEDS: FAMOTIDINE 20 MG TAB PO SCH (08:21)
[2020-11-06] MEDS: TAMSULOSIN 0.4 MG CAP.ER.24H PO SCH (08:22)
[2020-11-06] MEDS: oxyCODONE ER 20 MG TAB.ER.12H PO SCH (08:22)
--- NOTE | 2020-11-06 11:20 | PN ---
PROGRESS NOTE DATE OF SERVICE: 11/06/2020. REASON FOR FOLLOWUP: 1. E coli urinary tract infection. 2. Positive blood culture. INTERVAL HISTORY: The patient is currently afebrile. Patient is breathing comfortably. Denies having any chest pain, shortness of breath or cough. No abdominal pain, no diarrhea. PHYSICAL EXAMINATION: Blood pressure 114/58 with a pulse of 81, temperature 98.3. He is 96% on 3 L nasal cannula. General description is an elderly male lying in bed in no distress. RESPIRATORY SYSTEM: Unlabored breathing, clear to auscultation anteriorly. HEART: S1, S2. Regular rate and rhythm. ABDOMEN: Soft, no tenderness. LABS: No new labs been obtained today. Repeat blood culture has been negative. White count was normal as of 11/03. DIAGNOSTIC IMPRESSION AND PLAN: 1. Patient with Escherichia coli urinary tract infection with overall improvement on Rocephin to finish therapy with oral Ceftin for another week. 2. Positive blood culture with coagulase negative staph likely skin contaminant and will repeat blood culture and if negative no need for further workup. MMODL / IJN: [id number] /
[2020-11-06] MEDS: SODIUM CHLORIDE 0.9% 1,000 ML IV SCH (11:35)
--- NOTE | 2020-11-06 13:40 | US ---
EXAMINATION TYPE: US venous doppler duplex UE LT DATE OF EXAM: 11/06/2020 COMPARISON: NONE CLINICAL HISTORY: unilateral swelling. History of left hand and arm swelling x 2 days with history of multiple intravenous sites here at posterior hand SIDE PERFORMED: left arm Left Arm: Negative for DVT. Positive for left hand Superficial vein thrombosis from posterior hand an d proximally for 7 cm long. Patient's RN, Cathy, was notified of this finding at exam's end. Edema ch annels are noted at left wrist. IMPRESSION: 1. Left upper extremity ultrasound negative for deep venous thrombosis. 2. Superficial soft tissue swelling. Some superficial venous thrombosis extends from the hand approxi mately 7 cm.
--- NOTE | 2020-11-06 16:56 | P.PN ---
Subjective Progress Note Date: 11/06/20 Principal diagnosis: generalized weakness, bone metastases, intractable pain In follow-up today patient is reporting good pain control, he is tolerating oral intake, he is able to get around in the bed and up to the bedside, he states he had a normal bowel movement. He is going home with palliative care. He has plans to follow up with Dr. aGrcia in a couple of weeks. He is interested in pursuing immunotherapy with hopes of palliating some of the cancer symptoms he is experiencing. His LUE is very swollen Objective - Vital Signs Vital signs: Vital Signs Temp 98.3 F 11/06/20 04:22 Pulse 81 11/06/20 04:22 Resp 18 11/06/20 04:22 BP 114/58 11/06/20 04:22 Pulse Ox 96 11/06/20 04:22 Intake & Output 11/05/20 11/06/20 11/06/20 18:59 06:59 18:59 Intake Total 800 Output Total 100 Balance 800 -100 Intake: Intake, IV Titration 800 Amount Sodium Chloride 0.9% 1, 800 000 ml @ 100 mls/hr IV . Q10H [facility] Rx#:[id number] Output: Urine 100 Other: Voiding Method Urinal Urinal Urinal Diaper Diaper # Voids 2 1 - Constitutional General appearance: Present: cooperative, morbidly obese, no acute distress - EENT Eyes: Present: anicteric sclerae, EOMI ENT: Present: hearing grossly normal - Respiratory Respiratory: bilateral: CTA, diminished - Cardiovascular Rhythm: regular Heart sounds: normal: S1, S2 Abnormal Heart Sounds: Absent: systolic murmur, diastolic murmur, rub, S3 Gallop, S4 Gallop, click, other - Peripheral edema leg Peripheral Edema: bilateral: Trace - Gastrointestinal General gastrointestinal: Present: normal bowel sounds, soft - Integumentary Integumentary: Present: normal - Neurologic Neurologic: Present: CNII-XII intact - Musculoskeletal Musculoskeletal: Present: generalized weakness - Psychiatric Psychiatric: Present: A&O x's 3, appropriate affect, intact judgment & insight - Labs CBC & Chem 7: 11/03/20 08:26 11/03/20 08:26 Labs: Microbiology - Last 24 Hours (Table) 11/02/20 11:52 Blood Culture - Preliminary Blood No Growth after 96 hours 11/01/20 18:05 Blood Culture - Preliminary Blood No Growth after 96 hours - Imaging and Cardiology Venous US: report reviewed Assessment and Plan (1) Intractable back pain Narrative/Plan: Pain controlled on current analgesic regimen. He will continue with the same going home. Reviewed prevention of narcotic-induced constipation. Status: Acute Priority: High Code(s): M54.9 - DORSALGIA, UNSPECIFIED SNOMED Code(s): 319625081 (2) Squamous cell carcinoma of lung, stage IV Narrative/Plan: Patient is a high PD1 expressor, perfect candidate for immunotherapy. Dr. Garcia has discussed this with him previously. Orders have been sent for the same. He does have bone metastases. Rank lignad inhibitor ordered SQ monthly Status: Acute Priority: High Code(s): C34.90 - MALIGNANT NEOPLASM OF UNSP PART OF UNSP BRONCHUS OR LUNG SNOMED Code(s): 995376749 Plan: left upper extremity swelling. Doppler ordered and report reviewed once available. Patient has superficial thrombosis approximately 7 cm long. He is currently on anticoagulation with eliquis 2.5 mg twice a day. Case was reviewed with Primary Oncologist. No acute changes to patient's plan of care.
--- NOTE | 2020-11-06 23:22 | P.PN ---
Progress Note - Text Progress Note Date: 11/05/20 REASON FOR FOLLOWUP: 1. E coli UTI. 2. Positive blood culture likely contamination. INTERVAL HISTORY: The patient is afebrile. The patient is feeling better with better control of his pain. The patient denies having any chest pain, shortness of breath or cough. No nausea, no vomiting. No diarrhea. PHYSICAL EXAMINATION: Blood pressure is 120/70, pulse of 80, temperature 97.5. He is 97% on 3 L nasal cannula. General description is an elderly male lying in bed in no distress. Respiratory system: Unlabored breathing, clear to auscultation anteriorly. Heart S1, S2. Regular rate and rhythm. ABDOMEN: Soft, no tenderness. LABS: repeat blood cultures are negative DIAGNOSTIC IMPRESSION AND PLAN: 1. Patient with positive blood culture, Staph epi likely skin contamination. Repeat blood culture negative. Currently off vancomycin. 2. Patient with E coli urinary tract infection covered with Rocephin. plan is to Finish therapy with short course of oral Ceftin.
--- NOTE | 2020-11-07 08:49 | P.DS ---
Providers Date of admission: 10/31/20 14:18 Expected date of discharge: 11/06/20 Attending physician: Car Maldonado Consults: 10/31/20 17:36 Consult Physician Routine Consulting Provider: Ole Kamara Consult Reason/Comments: Severe encephalopathy Do you want consulting provider notified?: Yes 10/31/20 17:37 Consult Physician Routine Consulting Provider: Anthony Cary Consult Reason/Comments: Squamous cell lung cancer prognostication Do you want consulting provider notified?: Yes 11/01/20 11:30 Consult Physician Urgent Consulting Provider: Miah Lam Consult Reason/Comments: positive blood cultures Do you want consulting provider notified?: Yes Primary care physician: Fredy Rodriguez Hospital Course: Final diagnosis -Severe toxic and metabolic encephalopathy: Toxic encephalopathy secondary to opiates and also acute renal failure and patient is on long-acting opiates -Acute renal failure: Prerenal azotemia secondary to dehydration which is secondary to diuretics -Possible bacteremia with blood culture showing coagulase negative staph and finalized showing Staphylococcus epidermidis which is most likely contamination -Hypervolemic hyponatremia, improved -Hyperkalemia secondary to dehydration, improved -Acute urinary tract infection with cultures finalizing E. coli -Mildly elevated liver enzymes, May be related to sepsis., Improving -Metastatic squamous cell lung cancer: Patient prognosis appears to be poor. patient has metastatic disease and patient is quite weak probably will not be a candidate for chemotherapy or immunotherapy, oncology following and will follow- up outpatient -Lactic acidosis secondary to possible sepsis and severe sepsis from urinary tract infection as well as contribution from dehydration, improved -Obesity hypoventilation syndrome and sleep apnea history -Chronic A. fib on anticoagulation -Hypertension -Coronary artery disease Discharge disposition Patient is being discharged in a stable condition with guarded prognosis to home and will continue with home care along with palliative care. Patient will follow-up with Dr. Rodriguez in the outpatient setting upon discharge. Patient is also to follow-up with oncology in the outpatient setting. Total time taken is greater than 35 minutes. Hospital course 74-year-old male came into emergency department with compensative generalized weakness patient is unable to provide any history to me as patient is severely encephalopathic although patient upon further questioning does answer questions appropriately. Patient has a severe myoclonic activity secondary to severe encephalopathy. Patient does have acute renal failure with elevated creatinine of 1.5 with baseline being normal patient is also on diuretic therapy. Patient had leukocytosis no fever at this time. Patient has highly elevated red blood cell count of 20,000. Urine is significantly abnormal patient was started on Rocephin. 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 Patient subsequently had pathological fracture patient had a surgery for that and was subsequently discharged to subacute rehabilitation. Patient was not started on any chemotherapy as patient is needing rehabilitation at this time. Patient is unable to much of history. Patient is also hyponatremic with elevated potassium. Patient the had a chest x-ray did not show any significant abnormality CT of the head and cervical spine did not show any intracranial bleed or midline shift her metastatic lesions that were evident. Patient was hyperkalemic as well. Troponins are negative. 11/05/2020 Patient is seen in follow-up currently sitting up in the chair and per nursing staff patient has continued weakness requiring assistance. Plan is for the patient to return home with the help of family and palliative care. Patient will also follow-up with oncology outpatient and discuss further treatment options moving forward. Case management following and working on discharge planning needs and patient will require a hospital bed as he needs head the bed elevated 30-45 at all times secondary to his congestive heart failure, position changes and pain relief secondary to metastatic cancer pain. Patient was maintained on IV ceftriaxone and we'll transition to a short course of oral on discharge. Most recent blood cultures have remained negative and initial blood cultures most likely contaminant. Patient was resumed on oral narcotic med regimen from previous admission per oncology as patient has multiple issues with pain management and this was discussed in detail with patient about the acute kidney injury and renal failure and altered mental status most likely secondary to narcotic pain medication use. This was also discussed with Lauren who is his caregiver. 11/06/2020 Patient is seen in follow-up with no acute overnight issues continues to be weak requiring assistance and plans are for discharge today to go home with home care and palliative care and for all has been placed. Patient also receiving a hospital bed at the home today. Patient will follow-up with oncology outpatient and continue with current treatment plan. Discussed with the patient along with family members about the adverse effects of narcotic medications that can result in acute renal failure and altered mental status and they are aware although they appear to be more concerned about his pain and intolerance to it. Patient was having some left arm and left hand swelling and underwent a venous Doppler which the arm was negative for DVT in the left hand showing a superficial vein thrombosis from the posterior hand and instructed the patient to continue with ice and elevation of the extremity and patient is maintained on Eliquis which has been continued. Currently no reports of chest pain, shortness of breath, or palpitations. Patient is afebrile. No reports of nausea or vomiting and patient is tolerating diet. Patient will be discharged home today with home care and palliative care. Guarded prognosis related to multiple readmissions. On exam vital signs are stable. Cardio S1, S2 are muffled. Respiratory system shows diminished breath sounds at the bases with no wheezing or rhonchi noted. Abdomen is soft and obese, and nontender. Nervous system shows diffuse weakness. Please refer to medication reconciliation sheet for a list of medications. Patient Condition at Discharge: Stable Plan - Discharge Summary Discharge Rx Participant: No New Discharge Prescriptions: New Acetaminophen Tab [Tylenol] 650 mg PO Q4HR PRN tab PRN Reason: Fever And/ Or Pain Apixaban [Eliquis] 2.5 mg PO BID 30 Days #60 tablet Cefuroxime Axetil [Ceftin] 500 mg PO BID 7 Days #14 tab Continue Multivitamins, Thera [Multivitamin (formulary)] 1 tab PO DAILY Tamsulosin [Flomax] 0.4 mg PO DAILY carvediloL [Coreg] 3.125 mg PO BID Lactulose [Constulose] 10 gm PO DAILY PRN PRN Reason: Constipation oxyCODONE ER [OxyCONTIN] 20 mg PO Q12HR 3 Days #6 tab Sennosides [Senokot] 17.2 mg PO BID 30 Days #120 tab oxyCODONE HCL [OxyIR] 5 mg PO Q6H PRN PRN Reason: Breakthrough Pain Mag Hydrox/Aluminum Hyd/Simeth [Mylanta Maximum Strength Liq] 30 ml PO Q4H PRN PRN Reason: Heartburn Ensure Complete 1 can PO TID-W/MEALS Cholecalciferol [Vitamin D3 (25 Mcg = 1000 Iu)] 25 mcg PO HS Furosemide [Lasix] 20 mg PO DAILY@0600 Calcium Carbonate [Calcium] 1,200 mg PO HS Ascorbic Acid [Vitamin C] 2,000 mg PO HS Z-Guard 1 applic TOPICAL Q12H Gabapentin [Neurontin] 300 mg PO TID cap Discontinued Apixaban [Eliquis] 5 mg PO BID amLODIPine [Norvasc] 5 mg PO DAILY tab Spironolactone [Aldactone] 25 mg PO DAILY Discharge Medication List Multivitamins, Thera [Multivitamin (formulary)] 1 tab PO DAILY 11/27/16 [History] Tamsulosin [Flomax] 0.4 mg PO DAILY 02/19/18 [History] carvediloL [Coreg] 3.125 mg PO BID 08/22/20 [History] Lactulose [Constulose] 10 gm PO DAILY PRN 09/05/20 [History] oxyCODONE ER [OxyCONTIN] 20 mg PO Q12HR 3 Days #6 tab 09/10/20 [Rx] Sennosides [Senokot] 17.2 mg PO BID 30 Days #120 tab 09/12/20 [Rx] Gabapentin [Neurontin] 300 mg PO TID cap 10/04/20 [Rx] Ascorbic Acid [Vitamin C] 2,000 mg PO HS 10/31/20 [History] Calcium Carbonate [Calcium] 1,200 mg PO HS 10/31/20 [History] Cholecalciferol [Vitamin D3 (25 Mcg = 1000 Iu)] 25 mcg PO HS 10/31/20 [History] Ensure Complete 1 can PO TID-W/MEALS 10/31/20 [History] Furosemide [Lasix] 20 mg PO DAILY@0600 10/31/20 [History] Mag Hydrox/Aluminum Hyd/Simeth [Mylanta Maximum Strength Liq] 30 ml PO Q4H PRN 10/31/20 [History] Z-Guard 1 applic TOPICAL Q12H 10/31/20 [History] oxyCODONE HCL [OxyIR] 5 mg PO Q6H PRN 10/31/20 [History] Acetaminophen Tab [Tylenol] 650 mg PO Q4HR PRN tab 11/06/20 [Rx] Apixaban [Eliquis] 2.5 mg PO BID 30 Days #60 tablet 11/06/20 [Rx] Cefuroxime Axetil [Ceftin] 500 mg PO BID 7 Days #14 tab 11/06/20 [Rx] Follow up Appointment(s)/Referral(s): Fredy Rodriguez III, MD [Primary Care Provider] - 11[facility]09[facility]20 [facility] Week Patient Instructions/Handouts: Cefuroxime (By mouth), Apixaban (By mouth), Dehydration (DC), Acute Kidney Injury (DC), Urinary Tract Infection in Men (DC), Palliative Care (DC), Hypotension (DC) Activity/Diet/Wound Care/Special Instructions: [facility] palliative care phone number : Activity Limited until follow-up Follow-up with oncology outpatient Follow-up with primary care provider upon discharge Continue with home care and palliative care Continue to hold blood pressure medication and monitor blood pressure and his blood pressure consistently stays above 140 systolic resume amlodipine 5 mg daily Continue current diet Continue antibiotics for the next week until finished Discharge Disposition: HOME WITH HOME HEALTH SERVICES
== END 2020-11-06 14:30 | disposition home health service (06) | DRG 871 ==
LOC: EC 10:58 → 5NMEDONC 14:18
PROVIDERS: ADMIT Internal Medicine; ATTEND Internal Medicine
DX: A41.9 Sepsis, unspecified organism (principal); G92 Toxic encephalopathy; G93.41 Metabolic encephalopathy; R65.21 Severe sepsis with septic shock; N17.9 Acute kidney failure, unspecified; E87.1 Hypo-osmolality and hyponatremia; N39.0 Urinary tract infection, site not specified; E66.2 Morbid (severe) obesity with alveolar hypoventilation; E87.2 Acidosis; Z51.5 Encounter for palliative care; I48.20 Chronic atrial fibrillation, unspecified; C34.90 Malignant neoplasm of unspecified part of unspecified bronchus or lung; C79.51 Secondary malignant neoplasm of bone; R65.20 Severe sepsis without septic shock; T40.605A Adverse effect of unspecified narcotics, initial encounter; I50.9 Heart failure, unspecified; E86.0 Dehydration; G47.30 Sleep apnea, unspecified; I11.0 Hypertensive heart disease with heart failure; Z79.01 Long term (current) use of anticoagulants; I95.9 Hypotension, unspecified; I25.10 Atherosclerotic heart disease of native coronary artery without angina pectoris; E87.5 Hyperkalemia; Z85.118 Personal history of other malignant neoplasm of bronchus and lung; G25.3 Myoclonus; E83.51 Hypocalcemia; R25.1 Tremor, unspecified; Z82.49 Family history of ischemic heart disease and other diseases of the circulatory system; Z82.3 Family history of stroke; I25.2 Old myocardial infarction; Z87.891 Personal history of nicotine dependence; Z92.21 Personal history of antineoplastic chemotherapy; Z85.038 Personal history of other malignant neoplasm of large intestine; G89.3 Neoplasm related pain (acute) (chronic); Z92.3 Personal history of irradiation; M84.58XD Pathological fracture in neoplastic disease, other specified site, subsequent encounter for fracture with routine healing; B96.20 Unspecified Escherichia coli [E. coli] as the cause of diseases classified elsewhere
CPT/HCPCS: 36415; 70450; 71046; 72125; 80048; 80053; 81001; 82140; 82550; 83605; 84484; 85025; 85610; 85730; 87040; 87077; 87086; 87186; 87636; 93005; 94660; 95816; 96361; 96374; 99285

== ENCOUNTER 2020-11-21 18:41 | Emergency (ER) | payer MEDICARE ==
[2020-11-21 18:53] VITALS: PULSE 86; RESP 18; TEMP 98.9
[2020-11-21 20:15] LABS: Appearance,Urine Clear (Clear); Bilirubin,Urine Negative (Negative); Blood,Urine Negative (Negative); Color,Urine Yellow; Glucose,Urine (UA) Negative (Negative); Ketones,Urine Negative (Negative); Leukocyte Esterase,Urine Negative (Negative); Nitrite,Urine Negative (Negative); Protein,Urine Trace (Negative); Specific Gravity,Urine 1.014 (1.001-1.035); Urobilinogen,Urine <2.0 mg/dL (<2.0)
--- NOTE | 2020-11-21 20:15 | XR ---
EXAM: Abdomen radiograph. HISTORY: Pain. TECHNIQUE: Supine AP view. COMPARISON: 09/30/2020. FINDINGS: There is moderate cueto colonic distention with gas and stool. There is a nonobstructive pattern. There are no pathologic calcifications. No acute osseous abnormality seen. The lumbar spine fusion seen. IMPRESSION: Colonic distention with gas and stool, consistent with constipation.
[2020-11-21 20:29] LABS: ALT 37 U/L (4-49); AST 54 U/L (17-59); African American GFR (CKD) >90 (>60 ml/min/1.73 sqM); Albumin 2.8 g/dL (3.5-5.0); Alkaline Phosphatase 236 U/L (38-126); Anion Gap 1 mmol/L; Blood Urea Nitrogen 11 mg/dL (9-20); Calcium 8.5 mg/dL (8.4-10.2); Carbon Dioxide 37 mmol/L (22-30); Chloride 96 mmol/L (98-107); Glucose 124 mg/dL (74-99); Non-African American GFR(CKD) >90 (>60 ml/min/1.73 sqM); Potassium 4.4 mmol/L (3.5-5.1); Sodium 134 mmol/L (137-145); Total Bilirubin 0.5 mg/dL (0.2-1.3); Total Protein 6.3 g/dL (6.3-8.2)
[2020-11-21 20:38] LABS: Anisocytosis Slight; Basophils # (A) 0.1 k/uL (0-0.2); Basophils % (A) 1 %; Eosinophils # (A) 0.3 k/uL (0-0.7); Eosinophils % (A) 3 %; HCT 33.3 % (39.0-53.0); HGB 10.9 gm/dL (13.0-17.5); Hypochromasia Slight; Lymphocytes # (A) 2.5 k/uL (1.0-4.8); Lymphocytes % (A) 27 %; MCH 29.4 pg (25.0-35.0); MCHC 32.6 g/dL (31.0-37.0); MCV 90.2 fL (80.0-100.0); Mean Platelet Volume 7.2; Monocytes # (A) 0.6 k/uL (0-1.0); Monocytes % (A) 6 %; Neutrophils # (A) 5.5 k/uL (1.3-7.7); Neutrophils % (A) 61 %; Poikilocytosis Slight; RBC 3.69 m/uL (4.30-5.90); RDW 16.1 % (11.5-15.5)
[2020-11-21 20:41] LABS: Platelet Count 458 k/uL (150-450)
[2020-11-21 20:53] LABS: Large Platelets Present
--- NOTE | 2020-11-21 20:58 | ED ---
General Adult HPI - General Chief complaint: Abdominal Pain Stated complaint: constipation Time Seen by Provider: 11/21/20 18:50 Source: patient, EMS, RN notes reviewed, old records reviewed Mode of arrival: EMS - History of Present Illness Initial comments: This is a 80-year-old male who presents emergency department because he is constipated. Patient states he has not had a bowel movement 2 weeks per patient states he also is having difficulty urinating over the last few days. Patient states she's only able to go a little bit and then he can't urinate anymore. Patient denies any fever chills per patient states he has quite a bit of abdominal cramping now and again. Patient states he has no consistent abdominal pain. Patient denies any back pain. Patient denies any chest pain difficulty breathing. - Related Data Home Medications Medication Instructions Recorded Confirmed Multivitamins, Thera [Multivitamin 1 tab PO DAILY 11/27/16 10/31/20 (formulary)] Tamsulosin [Flomax] 0.4 mg PO DAILY 02/19/18 10/31/20 carvediloL [Coreg] 3.125 mg PO BID 08/22/20 10/31/20 Lactulose [Constulose] 10 gm PO DAILY PRN 09/05/20 10/31/20 Ascorbic Acid [Vitamin C] 2,000 mg PO HS 10/31/20 10/31/20 Calcium Carbonate [Calcium] 1,200 mg PO HS 10/31/20 10/31/20 Cholecalciferol [Vitamin D3 (25 25 mcg PO HS 10/31/20 10/31/20 Mcg = 1000 Iu)] Ensure Complete 1 can PO TID-W/MEALS 10/31/20 10/31/20 Furosemide [Lasix] 20 mg PO DAILY@0600 10/31/20 10/31/20 Mag Hydrox/Aluminum Hyd/Simeth 30 ml PO Q4H PRN 10/31/20 10/31/20 [Mylanta Maximum Strength Liq] Z-Guard 1 applic TOPICAL Q12H 10/31/20 10/31/20 oxyCODONE HCL [OxyIR] 5 mg PO Q6H PRN 10/31/20 10/31/20 Previous Rx's Medication Instructions Recorded oxyCODONE ER [OxyCONTIN] 20 mg PO Q12HR 3 Days #6 tab 09/10/20 Sennosides [Senokot] 17.2 mg PO BID 30 Days #120 tab 09/12/20 Gabapentin [Neurontin] 300 mg PO TID cap 10/04/20 Acetaminophen Tab [Tylenol] 650 mg PO Q4HR PRN tab 11/06/20 Apixaban [Eliquis] 2.5 mg PO BID 30 Days #60 tablet 11/06/20 Cefuroxime Axetil [Ceftin] 500 mg PO BID 7 Days #14 tab 11/06/20 Allergies Allergy/AdvReac Type Severity Reaction Status Date / Time hydrocodone [From Vicodin] AdvReac Hallucinati Verified 10/31/20 13:14 ons Aljmyir-Dji-Ail Reductase AdvReac MUSCLE PAIN Verified 10/31/20 13:14 Inhibitor Review of Systems ROS Statement: Those systems with pertinent positive or pertinent negative responses have been documented in the HPI. ROS Other: All systems not noted in ROS Statement are negative. Past Medical History Past Medical History: Atrial Fibrillation, Coronary Artery Disease (CAD), Cancer, Heart Failure, Hypertension, Myocardial Infarction ([place]), Osteoarthritis (OA), Prostate Disorder, Respiratory Disorder Additional Past Medical History / Comment(s): Pt recently admtiited to [facility] on 08/22/20 with intractable low back pain with kyphoplasty T10 with biopsy (pt has not been given results/abnormal cat scan and pt told possible mets to bone. Pt recently in [facility] ER on 09/03/20 with constipation/colitis. 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 Last Myocardial Infarction Date:: mar 2018 History of Any Multi-Drug Resistant Organisms: None Reported Past Surgical History: Back Surgery, Heart Catheterization With Stent, Joint Replacement, Orthopedic Surgery, Pacemaker Additional Past Surgical History / Comment(s): 08/2019 kyphoplasty/bx T10, 09/2019 bronch with bx/brushings/BAL, 2018 pacemaker, bilateral knee arthroscopies, bilateral total knee replacements, R knee surgery for patellar tendon tear, PCI with stents, colonoscopy, bilateral cataract removals. Past Anesthesia/Blood Transfusion Reactions: Motion Sickness Date of Last Stent Placement:: 03/23 Type of Cardiac Device: Permanent Pacemaker Device Placement Date:: 02/20 Past Psychological History: No Psychological Hx Reported Smoking Status: Former smoker Past Alcohol Use History: Rare Past Drug Use History: None Reported - Past Family History Sister(s) Family Medical History: Cancer Brother(s) Family Medical History: Cancer Additional Family Medical History / Comment(s): 3 brothers cancer Father Family Medical History: Coronary Artery Disease (CAD), CVA/TIA, Myocardial Infarction ([place]) Additional Family Medical History / Comment(s): Father had TIAs and MIs. He between the ages of 62-68yrs from what pt believes was a [place] Mother Family Medical History: Myocardial Infarction ([place]) Additional Family Medical History / Comment(s): Mother of a OH at the age of 88yrs. General Exam - General Exam Comments Initial Comments: GENERAL: Patient is well-developed and well-nourished. Patient is nontoxic and well- hydrated and is in mild distress. ENT: Neck is soft and supple. No significant lymphadenopathy is noted. Oropharynx is clear. Moist mucous membranes. Neck has full range of motion without eliciting any pain. EYES: The sclera were anicteric and conjunctiva were pink and moist. Extraocular movements were intact and pupils were equal round and reactive to light. E yelids were unremarkable. PULMONARY: Unlabored respirations. Good breath sounds bilaterally. No audible rales rhonchi or wheezing was noted. CARDIOVASCULAR: There is a regular rate and rhythm without any murmurs gallops or rubs. ABDOMEN: Abdomen is mildly distended and slightly diffusely tender in the suprapubic region SKIN: Skin is clear with no lesions or rashes and otherwise unremarkable. NEUROLOGIC: Patient is alert and oriented x3. Cranial nerves II through XII are grossly intact. Motor and sensory are also intact. Normal speech, volume and content. Symmetrical smile. MUSCULOSKELETAL: Normal extremities with adequate strength and full range of motion. LYMPHATICS: No significant lymphadenopathy is noted PSYCHIATRIC: Normal psychiatric evaluation. Course Vital Signs 11/21/20 18:49 Temperature 98.9 F Pulse Rate 86 Respiratory 18 Rate Blood Pressure 138/82 O2 Sat by Pulse 97 Oximetry Medical Decision Making - Medical Decision Making Patient's KUB shows moderate constipation. Patient did receive an enema. Patient had a catheter placed 700 mL of urine came out. Patient laid bag placed as well. Patient was feeling considerably better. - Lab Data Result diagrams: 11/21/20 19:33 11/21/20 19:33 Lab Results 11/21/20 11/21/20 11/21/20 Range/Units 19:33 19:33 19:33 WBC 9.0 (3.8-10.6) k/uL RBC 3.69 L (4.30-5.90) m/uL Hgb 10.9 L (13.0-17.5) gm/dL Hct 33.3 L (39.0-53.0) % MCV 90.2 (80.0-100.0) fL MCH 29.4 (25.0-35.0) pg MCHC 32.6 (31.0-37.0) g/dL RDW 16.1 H (11.5-15.5) % Plt Count 458 H D (150-450) k/uL MPV 7.2 Neutrophils % 61 % Lymphocytes % 27 % Monocytes % 6 % Eosinophils % 3 % Basophils % 1 % Neutrophils # 5.5 (1.3-7.7) k/uL Lymphocytes # 2.5 (1.0-4.8) k/uL Monocytes # 0.6 (0-1.0) k/uL Eosinophils # 0.3 (0-0.7) k/uL Basophils # 0.1 (0-0.2) k/uL Hypochromasia Slight Poikilocytosis Slight Anisocytosis Slight Sodium 134 L (137-145) mmol/L Potassium 4.4 (3.5-5.1) mmol/L Chloride 96 L (98-107) mmol/L Carbon Dioxide 37 H (22-30) mmol/L Anion Gap 1 mmol/L BUN 11 (9-20) mg/dL Creatinine 0.54 L (0.66-1.25) mg/dL Est GFR (CKD-EPI)AfAm >90 (>60 ml/min/1.73 sqM) Est GFR (CKD-EPI)NonAf >90 (>60 ml/min/1.73 sqM) Glucose 124 H (74-99) mg/dL Calcium 8.5 (8.4-10.2) mg/dL Total Bilirubin 0.5 (0.2-1.3) mg/dL AST 54 (17-59) U/L ALT 37 (4-49) U/L Alkaline Phosphatase 236 H (38-126) U/L Total Protein 6.3 (6.3-8.2) g/dL Albumin 2.8 L (3.5-5.0) g/dL Urine Color Yellow Urine Appearance Clear (Clear) Urine pH 8.0 (5.0-8.0) Ur Specific Buckner 1.014 (1.001-1.035) Urine Protein Trace H (Negative) Urine Glucose (UA) Negative (Negative) Urine Ketones Negative (Negative) Urine Blood Negative (Negative) Urine Nitrite Negative (Negative) Urine Bilirubin Negative (Negative) Urine Urobilinogen <2.0 (<2.0) mg/dL Ur Leukocyte Esterase Negative (Negative) Disposition Clinical Impression: Constipation, Urinary retention Disposition: HOME SELF-CARE Condition: Good Instructions (If sedation given, give patient instructions): Urinary Retention in Men (ED), Constipation (ED), High Fiber Diet (ED) Is patient prescribed a controlled substance at d/c from ED?: No Referrals: Fredy Rodriguez III, MD [Primary Care Provider] - 1-2 days Time of Disposition: 20:57
[2020-11-21 22:49] VITALS: BP 137/87
== END 2020-11-21 22:56 | disposition home or self-care (01) ==
LOC: EC 18:41
DX: K59.00 Constipation, unspecified (principal); R33.9 Retention of urine, unspecified; I48.91 Unspecified atrial fibrillation; I25.10 Atherosclerotic heart disease of native coronary artery without angina pectoris; I11.0 Hypertensive heart disease with heart failure; I50.9 Heart failure, unspecified; I25.2 Old myocardial infarction; M19.90 Unspecified osteoarthritis, unspecified site; Z87.891 Personal history of nicotine dependence; Z95.0 Presence of cardiac pacemaker
CPT/HCPCS: 36415; 51702; 74018; 80053; 81003; 85025; 99284

== ENCOUNTER 2021-01-03 17:39 | Inpatient (IN) | payer MEDICARE ==
--- NOTE | 2021-01-03 18:03 | ED ---
General Adult HPI - General Chief complaint: Weakness Stated complaint: Altered Time Seen by Provider: 01/03/21 17:42 Source: patient, EMS, RN notes reviewed Mode of arrival: EMS Limitations: no limitations - History of Present Illness Initial comments: Patient is a pleasant 80-year-old male presenting to the emergency department with concerns for mental status change. Patient reportedly has been having some her speech for the past 4 days. There is also some reports of confusion. Patient does not feel confused. Patient does have a history of lung cancer, treated with radiation however did have recurrence of the spine. Patient did have spine surgery done several months ago. Patient amiss to feeling slightly short of breath. Patient is generally fatigued. No isolated area of weakness. - Related Data Home Medications Medication Instructions Recorded Confirmed Multivitamins, Thera [Multivitamin 1 tab PO DAILY 11/27/16 10/31/20 (formulary)] Tamsulosin [Flomax] 0.4 mg PO DAILY 02/19/18 10/31/20 carvediloL [Coreg] 3.125 mg PO BID 08/22/20 10/31/20 Lactulose [Constulose] 10 gm PO DAILY PRN 09/05/20 10/31/20 Ascorbic Acid [Vitamin C] 2,000 mg PO HS 10/31/20 10/31/20 Calcium Carbonate [Calcium] 1,200 mg PO HS 10/31/20 10/31/20 Cholecalciferol [Vitamin D3 (25 25 mcg PO HS 10/31/20 10/31/20 Mcg = 1000 Iu)] Ensure Complete 1 can PO TID-W/MEALS 10/31/20 10/31/20 Furosemide [Lasix] 20 mg PO DAILY@0600 10/31/20 10/31/20 Mag Hydrox/Aluminum Hyd/Simeth 30 ml PO Q4H PRN 10/31/20 10/31/20 [Mylanta Maximum Strength Liq] Z-Guard 1 applic TOPICAL Q12H 10/31/20 10/31/20 oxyCODONE HCL [OxyIR] 5 mg PO Q6H PRN 10/31/20 10/31/20 Previous Rx's Medication Instructions Recorded oxyCODONE ER [OxyCONTIN] 20 mg PO Q12HR 3 Days #6 tab 09/10/20 Sennosides [Senokot] 17.2 mg PO BID 30 Days #120 tab 09/12/20 Gabapentin [Neurontin] 300 mg PO TID cap 10/04/20 Acetaminophen Tab [Tylenol] 650 mg PO Q4HR PRN tab 11/06/20 Apixaban [Eliquis] 2.5 mg PO BID 30 Days #60 tablet 11/06/20 Cefuroxime Axetil [Ceftin] 500 mg PO BID 7 Days #14 tab 11/06/20 Allergies Allergy/AdvReac Type Severity Reaction Status Date / Time hydrocodone [From Vicodin] AdvReac Hallucinati Verified 01/03/21 17:51 ons Xhilgsp-Cgl-Hpw Reductase AdvReac MUSCLE PAIN Verified 01/03/21 17:51 Inhibitor Review of Systems ROS Statement: Those systems with pertinent positive or pertinent negative responses have been documented in the HPI. ROS Other: All systems not noted in ROS Statement are negative. Constitutional: Denies: fever Eyes: Denies: eye pain ENT: Denies: ear pain Respiratory: Reports: as per HPI, dyspnea. Denies: cough Cardiovascular: Denies: chest pain Endocrine: Reports: fatigue Gastrointestinal: Denies: abdominal pain Genitourinary: Denies: dysuria Musculoskeletal: Denies: back pain Skin: Denies: rash Neurological: Reports: as per HPI. Denies: headache Past Medical History Past Medical History: Atrial Fibrillation, Coronary Artery Disease (CAD), Cancer, Heart Failure, Hypertension, Myocardial Infarction (HI), Osteoarthritis (OA), Prostate Disorder, Respiratory Disorder Additional Past Medical History / Comment(s): Pt recently admtiited to [facility] on 08/22/20 with intractable low back pain with kyphoplasty T10 with biopsy (pt has not been given results/abnormal cat scan and pt told possible mets to bone. Pt recently in [facility] ER on 09/03/20 with constipation/colitis. 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 Last Myocardial Infarction Date:: mar 2018 History of Any Multi-Drug Resistant Organisms: None Reported Past Surgical History: Back Surgery, Heart Catheterization With Stent, Joint Replacement, Orthopedic Surgery, Pacemaker Additional Past Surgical History / Comment(s): 08/2019 kyphoplasty/bx T10, 09/2019 bronch with bx/brushings/BAL, 2017 pacemaker, bilateral knee arthroscopies, bilateral total knee replacements, R knee surgery for patellar tendon tear, PCI with stents, colonoscopy, bilateral cataract removals. Past Anesthesia/Blood Transfusion Reactions: Motion Sickness Date of Last Stent Placement:: 03/23 Type of Cardiac Device: Permanent Pacemaker Device Placement Date:: 02/20 Past Psychological History: No Psychological Hx Reported Smoking Status: Former smoker Past Alcohol Use History: Rare Past Drug Use History: None Reported - Past Family History Sister(s) Family Medical History: Cancer Brother(s) Family Medical History: Cancer Additional Family Medical History / Comment(s): 3 brothers cancer Father Family Medical History: Coronary Artery Disease (CAD), CVA/TIA, Myocardial Infarction (HI) Additional Family Medical History / Comment(s): Father had TIAs and MIs. He between the ages of 62-68yrs from what pt believes was a HI Mother Family Medical History: Myocardial Infarction (HI) Additional Family Medical History / Comment(s): Mother of a HI at the age of 88yrs. General Exam Limitations: no limitations General appearance: alert, in no apparent distress Head exam: Present: normocephalic Eye exam: Present: normal appearance, PERRL, EOMI. Absent: nystagmus ENT exam: Present: mucous membranes dry Neck exam: Present: normal inspection Respiratory exam: Present: normal lung sounds bilaterally Cardiovascular Exam: Present: regular rate, normal rhythm GI/Abdominal exam: Present: soft. Absent: tenderness, guarding Extremities exam: Present: normal inspection. Absent: pedal edema, calf tenderness Neurological exam: Present: alert, oriented X3, CN II-XII intact. Absent: motor sensory deficit Expanded Neurological exam: Present: protecting the airway, other (There is minimal slurred speech.) Cranial nerves: EOM's Intact: Normal, Facial Sensation: Normal Sensory exam: Upper Extremity Light Touch: Normal, Lower Extremity Light Touch: Normal Motor strength exam: RUE: 5, LUE: 5, RLE: 5, LLE: 5 Eye Response: (4) open spontaneously Motor Response: (6) obeys commands Verbal Response: (5) oriented Psychiatric exam: Present: normal affect, normal mood Skin exam: Present: normal color Course Vital Signs 01/03/21 17:51 Temperature 98 F Pulse Rate 89 Respiratory 18 Rate Blood Pressure 130/90 O2 Sat by Pulse 98 Oximetry EKG Findings - EKG Comments: EKG Findings:: Atrial fibrillation with a rate of 83. QRS 92. QT 380. QTC 4 46. Left axis. Inferior Q waves. No acute ST change. Medical Decision Making - Medical Decision Making Patient reevaluated. Patient and family updated. Patient has been on some palliative care recently however they have almost completed that. Patient is not on hospice care. would like patient admitted. Case was discussed with practitioner Jessica Fuller, covering with Dr. Nichols, who admits for Dr. Rodriguez. - Lab Data Result diagrams: 01/03/21 18:18 01/03/21 18:18 Lab Results 01/03/21 01/03/21 01/03/21 Range/Units 18:18 18:18 18:18 WBC 7.3 (3.8-10.6) k/uL RBC 4.25 L (4.30-5.90) m/uL Hgb 11.6 L (13.0-17.5) gm/dL Hct 36.9 L (39.0-53.0) % MCV 86.8 (80.0-100.0) fL MCH 27.4 (25.0-35.0) pg MCHC 31.6 (31.0-37.0) g/dL RDW 15.5 (11.5-15.5) % Plt Count 375 (150-450) k/uL MPV 6.8 Neutrophils % 55 % Lymphocytes % 30 % Monocytes % 6 % Eosinophils % 5 % Basophils % 1 % Neutrophils # 4.0 (1.3-7.7) k/uL Lymphocytes # 2.2 (1.0-4.8) k/uL Monocytes # 0.4 (0-1.0) k/uL Eosinophils # 0.4 (0-0.7) k/uL Basophils # 0.1 (0-0.2) k/uL Hypochromasia Slight Poikilocytosis Slight PT 11.9 (9.0-12.0) sec INR 1.1 (<1.2) APTT 24.8 (22.0-30.0) sec Sodium (137-145) mmol/L Potassium (3.5-5.1) mmol/L Chloride (98-107) mmol/L Carbon Dioxide (22-30) mmol/L Anion Gap mmol/L BUN (9-20) mg/dL Creatinine (0.66-1.25) mg/dL Est GFR (CKD-EPI)AfAm (>60 ml/min/1.73 sqM) Est GFR (CKD-EPI)NonAf (>60 ml/min/1.73 sqM) Glucose (74-99) mg/dL POC Glucose (mg/dL) (75-99) mg/dL POC Glu Press Tender Incendiary Grenade ID Calcium (8.4-10.2) mg/dL Total Bilirubin (0.2-1.3) mg/dL AST (17-59) U/L ALT (4-49) U/L Alkaline Phosphatase (38-126) U/L Troponin I (0.000-0.034) ng/mL Total Protein (6.3-8.2) g/dL Albumin (3.5-5.0) g/dL Urine Color Yellow Urine Appearance Cloudy (Clear) Urine pH 5.5 (5.0-8.0) Ur Specific Crook 1.020 (1.001-1.035) Urine Protein Trace H (Negative) Urine Glucose (UA) Negative (Negative) Urine Ketones 1+ H (Negative) Urine Blood Negative (Negative) Urine Nitrite Negative (Negative) Urine Bilirubin Negative (Negative) Urine Urobilinogen <2.0 (<2.0) mg/dL Ur Leukocyte Esterase Small H (Negative) Urine RBC 3 (0-5) /hpf Urine WBC 7 H (0-5) /hpf Ur Squamous Epith Cells <1 (0-4) /hpf Hyaline Casts 15 H (0-2) /lpf Urine Mucus Many H (None) /hpf Urine Opiates Screen Detected H (NotDetected) Ur Oxycodone Screen Detected H (NotDetected) Urine Methadone Screen Not Detected (NotDetected) Ur Propoxyphene Screen Not Detected (NotDetected) Ur Barbiturates Screen Not Detected (NotDetected) U Tricyclic Antidepress Not Detected (NotDetected) Ur Phencyclidine Scrn Not Detected (NotDetected) Ur Amphetamines Screen Not Detected (NotDetected) U Methamphetamines Scrn Not Detected (NotDetected) U Benzodiazepines Scrn Not Detected (NotDetected) Urine Cocaine Screen Not Detected (NotDetected) U Marijuana (THC) Screen Not Detected (NotDetected) 01/03/21 01/03/21 01/03/21 Range/Units 18:18 18:18 18:24 WBC (3.8-10.6) k/uL RBC (4.30-5.90) m/uL Hgb (13.0-17.5) gm/dL Hct (39.0-53.0) % MCV (80.0-100.0) fL MCH (25.0-35.0) pg MCHC (31.0-37.0) g/dL RDW (11.5-15.5) % Plt Count (150-450) k/uL MPV Neutrophils % % Lymphocytes % % Monocytes % % Eosinophils % % Basophils % % Neutrophils # (1.3-7.7) k/uL Lymphocytes # (1.0-4.8) k/uL Monocytes # (0-1.0) k/uL Eosinophils # (0-0.7) k/uL Basophils # (0-0.2) k/uL Hypochromasia Poikilocytosis PT (9.0-12.0) sec INR (<1.2) APTT (22.0-30.0) sec Sodium 136 L (137-145) mmol/L Potassium 4.2 (3.5-5.1) mmol/L Chloride 98 (98-107) mmol/L Carbon Dioxide 34 H (22-30) mmol/L Anion Gap 4 mmol/L BUN 11 (9-20) mg/dL Creatinine 0.44 L (0.66-1.25) mg/dL Est GFR (CKD-EPI)AfAm >90 (>60 ml/min/1.73 sqM) Est GFR (CKD-EPI)NonAf >90 (>60 ml/min/1.73 sqM) Glucose 120 H (74-99) mg/dL POC Glucose (mg/dL) 111 H (75-99) mg/dL POC Glu Press Tender Incendiary Grenade ID Cristina Greer Calcium 8.7 (8.4-10.2) mg/dL Total Bilirubin 0.3 (0.2-1.3) mg/dL AST 39 (17-59) U/L ALT 16 (4-49) U/L Alkaline Phosphatase 166 H (38-126) U/L Troponin I <0.012 (0.000-0.034) ng/mL Total Protein 6.3 (6.3-8.2) g/dL Albumin 3.0 L (3.5-5.0) g/dL Urine Color Urine Appearance (Clear) Urine pH (5.0-8.0) Ur Specific Crook (1.001-1.035) Urine Protein (Negative) Urine Glucose (UA) (Negative) Urine Ketones (Negative) Urine Blood (Negative) Urine Nitrite (Negative) Urine Bilirubin (Negative) Urine Urobilinogen (<2.0) mg/dL Ur Leukocyte Esterase (Negative) Urine RBC (0-5) /hpf Urine WBC (0-5) /hpf Ur Squamous Epith Cells (0-4) /hpf Hyaline Casts (0-2) /lpf Urine Mucus (None) /hpf Urine Opiates Screen (NotDetected) Ur Oxycodone Screen (NotDetected) Urine Methadone Screen (NotDetected) Ur Propoxyphene Screen (NotDetected) Ur Barbiturates Screen (NotDetected) U Tricyclic Antidepress (NotDetected) Ur Phencyclidine Scrn (NotDetected) Ur Amphetamines Screen (NotDetected) U Methamphetamines Scrn (NotDetected) U Benzodiazepines Scrn (NotDetected) Urine Cocaine Screen (NotDetected) U Marijuana (THC) Screen (NotDetected) - Radiology Data Radiology results: report reviewed (Computed tomography scan of the brain shows no acute hemorrhage, shift or mass effect. Chronic changes.), image reviewed ( Two-view chest x-ray shows new retrocardiac opacity concerning for pneumonia. Vascular congestion.And no old nodules concerning for metastasis.) Disposition Clinical Impression: Pneumonia, Slurred speech Disposition: ADMITTED IP TO THIS HOSP Is patient prescribed a controlled substance at d/c from ED?: No Referrals: Fredy Rodriguez III, MD [Primary Care Provider] - 1-2 days Decision Time: 19:59
[2021-01-03 18:26] LABS: Glucose,Whole Blood 111 mg/dL (75-99)
[2021-01-03 18:28] LABS: Basophils # (A) 0.1 k/uL (0-0.2); Basophils % (A) 1 %; Eosinophils # (A) 0.4 k/uL (0-0.7); Eosinophils % (A) 5 %; HCT 36.9 % (39.0-53.0); HGB 11.6 gm/dL (13.0-17.5); Hypochromasia Slight; Lymphocytes # (A) 2.2 k/uL (1.0-4.8); Lymphocytes % (A) 30 %; MCH 27.4 pg (25.0-35.0); MCHC 31.6 g/dL (31.0-37.0); MCV 86.8 fL (80.0-100.0); Mean Platelet Volume 6.8; Monocytes # (A) 0.4 k/uL (0-1.0); Monocytes % (A) 6 %; Neutrophils % (A) 55 %; Platelet Count 375 k/uL (150-450); Poikilocytosis Slight; RBC 4.25 m/uL (4.30-5.90); RDW 15.5 % (11.5-15.5); WBC 7.3 k/uL (3.8-10.6)
[2021-01-03 18:38] LABS: INR 1.1 (<1.2); Partial Thromboplastin Time 24.8 sec (22.0-30.0); Prothrombin Time 11.9 sec (9.0-12.0)
[2021-01-03 18:39] LABS: ALT 16 U/L (4-49); AST 39 U/L (17-59); African American GFR (CKD) >90 (>60 ml/min/1.73 sqM); Alkaline Phosphatase 166 U/L (38-126); Anion Gap 4 mmol/L; Blood Urea Nitrogen 11 mg/dL (9-20); Calcium 8.7 mg/dL (8.4-10.2); Carbon Dioxide 34 mmol/L (22-30); Chloride 98 mmol/L (98-107); Glucose 120 mg/dL (74-99); Non-African American GFR(CKD) >90 (>60 ml/min/1.73 sqM); Potassium 4.2 mmol/L (3.5-5.1); Sodium 136 mmol/L (137-145); Total Bilirubin 0.3 mg/dL (0.2-1.3); Total Protein 6.3 g/dL (6.3-8.2)
--- NOTE | 2021-01-03 19:03 | CT ---
EXAMINATION TYPE: CT brain wo con DATE OF EXAM: 01/03/2021 COMPARISON: 10/01/2020 HISTORY: 80-year-old male with altered mental status TECHNIQUE: Noncontrast CT of the head obtained with axial coronal and sagittal reformats. Automated exposure control for dose reduction was used. CT DLP: 1232.4 mGycm FINDINGS: No evidence of acute intracranial hemorrhage, midline shift or mass effect. Szymanski-white matter differentiation is preserved. Posterior fossa is unremarkable. Prominent ventricles and CSF spaces consistent with brain volume loss no significant change since benji or exam. Low-attenuation in the deep white matter and periventricular region and scattered tiny foci of low at tenuation in the bilateral basal ganglia again seen. Mild mucosal thickening in the ethmoidal sinuses, paranasal sinuses and mastoid air cells are well ev aluated. Atherosclerotic calcifications again demonstrated in the intracranial internal carotid arteries and v ertebrobasilar system. No acute intraorbital abnormality. No acute osseous abnormality. No significant soft tissue stone. IMPRESSION: 1. NO EVIDENCE OF ACUTE INTRACRANIAL HEMORRHAGE, MIDLINE SHIFT OR MASS EFFECT. 2. CHRONIC CHANGES, NO SIGNIFICANT CHANGE SINCE 10/01/2020, SEE BODY OF REPORT.
[2021-01-03 19:33] LABS: Appearance,Urine Cloudy (Clear); Bilirubin,Urine Negative (Negative); Blood,Urine Negative (Negative); Color,Urine Yellow; Glucose,Urine (UA) Negative (Negative); Hyaline Casts,Urine 15 /lpf (0-2); Ketones,Urine 1+ (Negative); Leukocyte Esterase,Urine Small (Negative); Mucus,Urine Many /hpf; Nitrite,Urine Negative (Negative); PH, Urine 5.5 (5.0-8.0); Protein,Urine Trace (Negative); RBC,Urine 3 /hpf (0-5); Squamous Epithelial Cell,Urine <1 /hpf (0-4); Urobilinogen,Urine <2.0 mg/dL (<2.0); WBC,Urine 7 /hpf (0-5)
--- NOTE | 2021-01-03 19:33 | XR ---
EXAMINATION TYPE: XR chest 2V DATE OF EXAM: 01/03/2021 COMPARISON: 10/31/2020 HISTORY: 80-year-old male with altered mental status TECHNIQUE: Frontal and lateral views of the chest are obtained. FINDINGS: There is a new retrocardiac opacity obscuring the left hemidiaphragm. There are old and new scattered nodular densities in the lungs. There is a patchy opacity in the left upper lobe which is relatively stable. No large pneumothorax or pleural effusion. There is pulmonary vascular congestion and cardiomegaly. Dual lead cardiac AICD device again demonstrated. Spinal hardware is not significantly changed compared to prior. Generalized osteopenia noted. IMPRESSION: 1. New retrocardiac opacity concerning for developing pneumonia. 2. Pulmonary vascular congestion and cardiomegaly. 3. New and old nodules concerning for metastasis 4. Left upper lobe stable patchy opacity could be on the basis of scarring.
[2021-01-03 19:43] LABS: Amphetamine Screen,Urine Not Detected (NotDetected); Barbiturate Screen,Urine Not Detected (NotDetected); Benzodiazepines Screen,Urine Not Detected (NotDetected); Cocaine Screen,Urine Not Detected (NotDetected); Methadone Screen, Urine Not Detected (NotDetected); Opiate Screen,Urine Detected (NotDetected); Oxycodone Screen, Urine Detected (NotDetected); Phencyclidine Screen,Urine Not Detected (NotDetected); Tricyclic Antidepressant,Urine Not Detected (NotDetected); Urn Cannabinoid Scrn Not Detected (NotDetected)
[2021-01-03] MEDS ORDERED: ASPIRIN 325 MG TAB PO STA (19:59)
[2021-01-03] MEDS ORDERED: AZITHROMYCIN 500 MG in SODIUM CHLORIDE 0.9% 250 ML IVPB STA (19:59)
[2021-01-03] MEDS ORDERED: PNEUMONIA PROTOCOL UTILIZED 1 EACH MISC PO PRN (19:59)
[2021-01-03] MEDS ORDERED: RX INFO: IV CONTRAST WAS GIVEN 1 EACH MISC MISCELLANE PRN (20:02)
[2021-01-03] MEDS ORDERED: LACTULOSE 200 GM/300 ML (FROM 1/2 GAL JUG) PO PRN (22:54)
[2021-01-03] MEDS ORDERED: ALPRAZolam 0.25 MG TAB PO PRN (22:54)
[2021-01-03] MEDS ORDERED: CHOLECALCIFEROL 25 MCG (1000 IU) TABLET PO SCH (23:00)
[2021-01-04] MEDS: carvediloL 3.125 MG TAB PO SCH ×2 (00:34→09:03)
[2021-01-04] MEDS: GABAPENTIN 300 MG CAP PO SCH ×3 (00:35→15:49)
[2021-01-04] MEDS: MORPHINE SULFATE ER 15 MG TABLET PO SCH ×2 (00:35→09:03)
[2021-01-04] MEDS: APIXABAN 2.5 MG TABLET PO SCH ×2 (00:35→09:03)
[2021-01-04 05:42] LABS: Basophils # (A) 0.1 k/uL (0-0.2); Basophils % (A) 1 %; Eosinophils # (A) 0.3 k/uL (0-0.7); Eosinophils % (A) 5 %; HCT 34.8 % (39.0-53.0); HGB 10.6 gm/dL (13.0-17.5); Hypochromasia Marked; Lymphocytes # (A) 2.1 k/uL (1.0-4.8); Lymphocytes % (A) 32 %; MCHC 30.6 g/dL (31.0-37.0); MCV 91.7 fL (80.0-100.0); Mean Platelet Volume 7.9; Monocytes # (A) 0.5 k/uL (0-1.0); Monocytes % (A) 7 %; Neutrophils # (A) 3.4 k/uL (1.3-7.7); Neutrophils % (A) 52 %; Platelet Count 231 k/uL (150-450); Poikilocytosis Slight; RBC 3.79 m/uL (4.30-5.90); RDW 15.6 % (11.5-15.5); WBC 6.6 k/uL (3.8-10.6)
[2021-01-04 05:47] LABS: African American GFR (CKD) >90 (>60 ml/min/1.73 sqM); Anion Gap 5 mmol/L; Blood Urea Nitrogen 9 mg/dL (9-20); Calcium 8.6 mg/dL (8.4-10.2); Carbon Dioxide 28 mmol/L (22-30); Chloride 102 mmol/L (98-107); Glucose 95 mg/dL (74-99); Non-African American GFR(CKD) >90 (>60 ml/min/1.73 sqM); Potassium 4.4 mmol/L (3.5-5.1); Sodium 135 mmol/L (137-145)
[2021-01-04] MEDS ORDERED: FUROSEMIDE 20 MG TAB PO SCH (06:00)
--- NOTE | 2021-01-04 08:13 | XR ---
EXAMINATION TYPE: XR chest 2V DATE OF EXAM: 01/04/2021 COMPARISON: 01/03/2021 HISTORY: Pneumonia TECHNIQUE: Frontal and lateral views of the chest are obtained. FINDINGS: Low lung volumes. Left infraclavicular generator device with stable leads. Grossly enlarge d heart. There are diffuse perihilar interstitial airspace opacities. Patchy consolidative airspace o pacities are seen throughout the lungs, predominantly at the left upper lobe and right lower lobe. Sm all pleural effusions are not excluded. No pneumothorax. There are underlying pulmonary nodules. Exte nsive thoracolumbar spinal hardware fusion device. IMPRESSION: 1. Patchy airspace opacities at the left upper lobe and right lower lobe suggestive of infectious/inf lammatory processes, such as developing pneumonia. 2. Probable underlying congestive heart failure with cardiomegaly, small pleural effusions, and inter stitial airspace opacities. 3. Underlying pulmonary nodules. Metastatic disease is not excluded. A CT of the chest may be helpful .
--- NOTE | 2021-01-04 08:31 | CT ---
EXAMINATION TYPE: CT brain w con DATE OF EXAM: 01/04/2021 COMPARISON: 01/03/2021 HISTORY: Mental status changes Post Back surgery. History of lung cancer. CT DLP: 1199 mGycm Automated exposure control for dose reduction was used. CONTRAST: CT scan of the head is performed with IV Contrast, patient injected with 100 mL of Isovue 300. FINDINGS: There is no abnormal enhancing mass or midline shift identified. The ventricles and sulci are within normal limits in size. The globes are intact and the visualized sinuses are clear. IMPRESSION: No enhancing lesions are detected.
[2021-01-04] MEDS ORDERED: POTASSIUM CHLORIDE ER 10 MEQ TAB.ER.PRT PO SCH (09:00)
[2021-01-04] MEDS ORDERED: SENNOSIDES 8.6 MG TAB PO SCH (09:00)
[2021-01-04] MEDS ORDERED: MULTIVITAMINS, THERA 1 EACH TAB PO SCH (09:00)
[2021-01-04] MEDS ORDERED: TAMSULOSIN 0.4 MG CAP.ER.24H PO SCH (09:00)
[2021-01-04] MEDS ORDERED: PANTOPRAZOLE 40 MG TABLET PO SCH (09:00)
[2021-01-04] MEDS ORDERED: ASPIRIN 325 MG TAB PO SCH (09:00)
[2021-01-04] MEDS ORDERED: AZITHROMYCIN 500 MG TAB PO SCH (09:00)
[2021-01-04 11:30] LABS: Chol/HDL Ratio 4.89; LDL Cholesterol,Calculated 88.4 mg/dL (0.0-131.0); VLDL Calculation 20.6 mg/dL (5.00-40.00)
--- NOTE | 2021-01-04 12:09 | P.CNNES ---
History of Present Illness Consult date: 01/04/21 Requesting physician: Alpesh Calderón Reason for Consult: Slurred speech History of Present Illness: Patient is a 80-year-old male came to the hospital by ambulance yesterday at 5:39 PM for 2-3 days history of slurred speech. Patient has history of metastatic lung cancer. Patient received his second dose of Keytruda on . On the next day on 12/28/2020 patient started having hallucinations, which persisted for 3 days and 2 nights and then slowly resolved. However 3 days ago it was noticed that patient was having slurred speech. This was noticeable by issuance visiting nurse and some other relatives although patient's and daughter has not noticed any slurring, as they live with him. Patient tells me that his mouth is very dry, has no taste. His daughter also has mentioned that the sliding is more noticeable when he is very tired. Patient denies any dysphagia. Denies any double vision, loss of vision, facial droop, any focal numbness or tingling. No stroke symptoms. Because of slurred speech, patient came to the hospital. Patient denies any headache. The hallucinations have resolved. When EMS arrived, patient was sitting in his reclining lift chair. Patient was alert and oriented 4 and has some slurred speech however answers questions appropriately. Patient denied difficulty in breathing or shortness of breath. 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 Patient had undergone second infusion of Keytruda on 12/27/2020. Patient has been c omplaining of weakness, slurred speech and feeling confused for 3 days. Per patient's visiting nurse present at the scene reported that, patient was noticeably weaker that day, and his speech was worse. Patient's vitals in the scene was blood pressure 159/61, pulse rate 90, respirations 16, saturation 89%. Vital signs on arrival blood pressure 130/90, pulse rate 89, temperature 98.0. CT head showed no evidence of acute intracranial hemorrhage midline shift or mass effect. Chronic changes, no significant change since 10/01/2020. Patient had a computed tomography scan of the brain with contrast this morning, which showed no enhancing lesions identified. Chest x-ray showed new retrocardiac opacity concerning for developing pneumonia. Pulmonary vascular congestion and cardiomegaly. Old nodules concerning for metastasis. Left upper lobe stable patchy opacity could be on the basis of scarring. EKG shows accelerated junctional rhythm. Left axis deviation. Blood test shows normal WBC hemoglobin 11.6, platelets 375. PT/PTT normal, sodium 136 potassium 4.2. Renal functions normal. Hepatic panel normal. Troponin negative. UA showed small leukocyte esterase and 7 WBC. Urine drug screen positive for opiates and oxycodone. Patient currently takes multivitamins, Flomax, Coreg, lactulose, gabapentin 300 mg 3 times a day, oxycodone 5 mg every 6 hours when necessary, Lasix, morphine 15 mg every 12 hours and Eliquis 5 mg twice a day. Patient has a pacemaker. Also has atrial fibrillation. Patient has hypertension, no diabetes. He has smoked 535-40 years ago. Denies any alcohol. Patient has been diagnosed with lung cancer 2 years ago. 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 He cannot tolerate chemo therefore is getting Keytr uda. Review of Systems As above in detail. Has chronic back pain from compression fracture due to metastasis in the spine. Patient had surgery on 09/25/2020 he had suffered from fall and fractured 2 vertebrae. Patient has no taste. Patient denies any chest pain shortness of breath any fever or chills. Complains of generalized weakness. Past Medical History Past Medical History: Atrial Fibrillation, Coronary Artery Disease (CAD), Cancer, Heart Failure, Hypertension, Myocardial Infarction (HI), Osteoarthritis (OA), Prostate Disorder, Respiratory Disorder Additional Past Medical History / Comment(s): Pt recently admitted to [facility] on 08/22/20 with intractable low back pain with kyphoplasty T10 with biopsy (pt has mets to bone) Pt recently in [facility] ER on 09/03/20 with constipation/colitis. 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 and was on Rocephin for 6 weeks in 2011-pt and spouse cannot recall if it was MRSA, BPH, large kidney stone pt was told he would never be able to pass-cannot recall which side Last Myocardial Infarction Date:: mar 2018 History of Any Multi-Drug Resistant Organisms: None Reported Past Surgical History: Back Surgery, Heart Catheterization With Stent, Joint Replacement, Orthopedic Surgery, Pacemaker Additional Past Surgical History / Comment(s): 08/2019 kyphoplasty/bx T10, 09/2019 bronch with bx/brushings/BAL, 2018 pacemaker, bilateral knee arthroscopies, bilateral total knee replacements, R knee surgery for patellar tendon tear, PCI with stents x 3, colonoscopy, bilateral cataract removals. Past Anesthesia/Blood Transfusion Reactions: Motion Sickness Date of Last Stent Placement:: 03/23 Type of Cardiac Device: Permanent Pacemaker Device Placement Date:: 02/20 Past Psychological History: No Psychological Hx Reported Additional Psychological History / Comment(s): Pt at [facility] at home with spouse and palliative home care w/ [facility]. Pt getting up with PT with back/chest brace in place and getting into wheelchair per spouse. Requires two to assist Smoking Status: Former smoker Past Alcohol Use History: Rare Additional Past Alcohol Use History / Comment(s): Pt started smoking in 1952 and quit in 1977 Past Drug Use History: None Reported - Past Family History Sister(s) Family Medical History: Cancer Brother(s) Family Medical History: Cancer Additional Family Medical History / Comment(s): 3 brothers cancer Father Family Medical History: Coronary Artery Disease (CAD), CVA/TIA, Myocardial Infarction (HI) Additional Family Medical History / Comment(s): Father had TIAs and MIs. He between the ages of 62-68yrs from what pt believes was a HI Mother Family Medical History: Myocardial Infarction (HI) Additional Family Medical History / Comment(s): Mother of a HI at the age of 88yrs. Medications and Allergies Home Medications Medication Instructions Recorded Confirmed Type Multivitamins, Thera [Multivitamin 1 tab PO DAILY 11/27/16 01/03/21 History (formulary)] Tamsulosin [Flomax] 0.4 mg PO DAILY 02/19/18 01/03/21 History carvediloL [Coreg] 3.125 mg PO BID 08/22/20 01/03/21 History Lactulose [Constulose] 10 gm PO DAILY PRN 09/05/20 01/03/21 History Sennosides [Senokot] 17.2 mg PO BID 30 Days #120 tab 09/12/20 01/03/21 Rx Gabapentin [Neurontin] 300 mg PO TID cap 10/04/20 01/03/21 Rx Ascorbic Acid [Vitamin C] 2,000 mg PO HS 10/31/20 01/03/21 History Calcium Carbonate [Calcium] 1,200 mg PO HS 10/31/20 01/03/21 History Cholecalciferol [Vitamin D3 (25 25 mcg PO HS 10/31/20 01/03/21 History Mcg = 1000 Iu)] Furosemide [Lasix] 20 mg PO DAILY@0600 10/31/20 01/03/21 History oxyCODONE HCL [OxyIR] 5 mg PO Q6H PRN 10/31/20 01/03/21 History ALPRAZolam [Xanax] 0.25 mg PO BID PRN 01/03/21 01/03/21 History Apixaban [Eliquis] 5 mg PO BID 01/03/21 01/03/21 History Morphine Sulfate ER [Ms Contin] 15 mg PO Q12HR 01/03/21 01/03/21 History Pantoprazole Sodium [Protonix] 40 mg PO DAILY 01/03/21 01/03/21 History Potassium Chloride ER [K-Dur 10] 10 meq PO DAILY 01/03/21 01/03/21 History Allergies Allergy/AdvReac Type Severity Reaction Status Date / Time hydrocodone [From Vicodin] AdvReac Hallucinati Verified 01/03/21 17:51 ons Qedvrke-Nuj-Xvh Reductase AdvReac MUSCLE PAIN Verified 01/03/21 17:51 Inhibitor Physical Examination - Vital Signs Vital Signs: Vital Signs Temp Pulse Pulse Resp BP BP Pulse Ox 01/04/21 02:00 97.9 F 78 24 117/70 90 L 01/04/21 00:40 98 01/03/21 22:17 97.8 F 79 16 118/75 92 L 01/03/21 21:32 98.7 F 88 18 137/93 96 01/03/21 17:51 98 F 89 18 130/90 98 Intake and Output 01/03/21 01/04/21 01/04/21 22:59 06:59 14:59 Output Total 200 Balance -200 Output: Urine 200 Other: Voiding Method Urinal Weight 117.934 kg Patient is an elderly male, very pleasant in no acute distress. Patient is alert awake oriented to time place and person. Speech appears mildly dysarthric, but probably from dry mouth. His language functions are normal. Attention, concentration and fund of knowledge is adequate. On cranial examination, pupils are round and reacting to light, visual devries are full on confrontation, extraocular muscles are intact with no nystagmus. Face is symmetric, tongue protrudes to the midline. Patient has dry tongue, and loss of papillae. Palatal elevation and sensation normal, hearing and shoulder shrug normal, facial sensation normal. On muscle strength testing, there is no pronator drift and the strength is normal in arms distally and proximally. In the lower extremities, patient's ankles are normal. Hips not able to be checked because of back pain from previous surgery. Deep tendon reflexes are absent. Sensory to touch is equal with no neglect. Cerebellar function showed no ataxia for [id number] testing. No d ysdiadochokinesia. Tone and bulk of muscles normal in the upper limbs, slightly decreased bulk in the lower limbs. Gait not checked. Patient is not ambulatory since his back fractures. He usually uses lift chair, and then he can pivot a little. On general examination, there is no carotid bruit or murmur, S1-S2 audible. Abdomen is soft nontender. Chest is clear. Peripheral pulses are present. No edema. Results - Laboratory Findings CBC and BMP: 01/04/21 05:01 01/04/21 05:01 Abnormal Lab Findings: Abnormal Labs 01/03/21 01/03/21 01/03/21 18:18 18:18 18:18 RBC 4.25 L Hgb 11.6 L Hct 36.9 L MCHC RDW Sodium 136 L Carbon Dioxide 34 H Creatinine 0.44 L Glucose 120 H POC Glucose (mg/dL) Alkaline Phosphatase 166 H Albumin 3.0 L Urine Protein Trace H Urine Ketones 1+ H Ur Leukocyte Esterase Small H Urine WBC 7 H Hyaline Casts 15 H Urine Mucus Many H Urine Opiates Screen Detected H Ur Oxycodone Screen Detected H 01/03/21 01/04/21 01/04/21 18:24 05:01 05:01 RBC 3.79 L Hgb 10.6 L Hct 34.8 L MCHC 30.6 L RDW 15.6 H Sodium 135 L Carbon Dioxide Creatinine 0.36 L Glucose POC Glucose (mg/dL) 111 H Alkaline Phosphatase Albumin Urine Protein Urine Ketones Ur Leukocyte Esterase Urine WBC Hyaline Casts Urine Mucus Urine Opiates Screen Ur Oxycodone Screen Assessment and Plan Assessment: * Slurred speech, probably mechanical due to dry mouth and tiredness. Examination is completely nonfocal. No evidence of CVA based upon neurological examination or CT scans. * Dry mouth, absent reflexes, rule out LEMS. * Metastatic lung cancer, to the spine. History of back surgery. * Hypertension * Obesity * Atrial fibrillation on anticoagulation with Eliquis * Pacemaker Plan: * Carotid Doppler to rule out stenosis. * Continue Eliquis for stroke prevention, related to atrial fibrillation. * We will check hemoglobin A1c, acetylcholine receptor antibody, and calcium channel receptor antibodies. The blood test results can be followed up as an outpatient. * Neurologically clear for discharge if carotid Doppler comes back negative.
[2021-01-04 12:54] VITALS: BP 120/82; PULSE 84; RESP 18; TEMP 98.7
--- NOTE | 2021-01-04 15:44 | US ---
EXAMINATION TYPE: US carotid duplex BILAT DATE OF EXAM: 01/04/2021 COMPARISON: NONE CLINICAL HISTORY: slurred speech, R/O TIA. Exam done portable. EXAM MEASUREMENTS: RIGHT: Peak Systolic Velocity (PSV) cm/sec ----- Right CCA: 54.0 ----- Right ICA: 55.5 ----- Right ECA: 37.3 ICA/CCA ratio: 1.0 RIGHT: End Diastole cm/sec ----- Right CCA: 14.5 ----- Right ICA: 20.6 ----- Right ECA: 10.5 LEFT: Peak Systolic Velocity (PSV) cm/sec ----- Left CCA: 50.3 ----- Left ICA: 62.8 ----- Left ECA: 52.0 ICA/CCA ratio: 1.3 LEFT: End Diastole cm/sec ----- Left CCA: 11.9 ----- Left ICA: 29.6 ----- Left ECA: 11.9 VERTEBRALS (direction of flow): Right Vertebral: Antegrade Left Vertebral: Antegrade Rhythm: Normal No hemodynamically significant stenosis of the bilateral internal carotid arteries. Mild right and mi ld to moderate left atherosclerotic plaque at the common carotid artery bifurcations. IMPRESSION: 1. Mild right and [id number]-yz-kcvdeodd left atherosclerotic plaque at the common carotid artery bifurcati ons. 2. No evidence of hemodynamically significant stenosis of the bilateral internal carotid arteries. Criteria for Assigning % of Stenosis / Diameter reduction (Estimation based on the indirect measurements of the internal carotid artery velocities (ICA PSV). 1. Normal (no stenosis)=ICA PSV < 125 cm/s: ratio < 2.0: ICA EDV<40 cm/s. 2. Less than 50% stenosis=ICA PSV < 125 cm/s: ratio < 2.0: ICA EDV<40 cm/s. 3. 50 to 69% stenosis=ICA PSV of 125 to 230 cm/s: ration 2.0 ? 4.0: ICA EDV 40-100 cm/s. 4. Greater than 70% stenosis to near occlusion= ICA PSV > 230 cm/s: ratio > 4.0: ICA EDV > 100 cm/s. 5. Near occlusion= ICA PSV velocities may be low or undetectable: variable ratio and ICA EDV. 6. Total occlusion=unable to detect flow.
--- NOTE | 2021-01-04 18:38 | P.CONS ---
History of Present Illness - Reason for Consult Consult date: 01/04/21 - History of Present Illness this is a 80-year-old white male patient of Dr. Huan Garcia who was diagnosed with Stage 2, NSCLC in 2019 He originally presented to Dr Rodriguez, his PCP with C/O progressive SOB X 2 months and dry cough X 3 weeks, in 2014. Denied any chest or skeletal pain, no anorexia or weight loss. CXR was suggestive of Pulmonary nodules, had CT Scan of chest revealing numerous bilateral pulmonary nodules of variable sizes.No mediastinal Lymphadenopathy or dominant lung tumors. Had CT Scan of abdomen/Pelvis which were mostly negative.De smoked 2 PPD X 20 years, quit smoking 30 years ago. No known primary malignancies in past. He had CT-Guided Lung nodule Bx at [facility] : Necrotizing Granuloma, no malignancy seen. 09/27/19: he was seen back because of a new diagnosis of left lung cancer. He had recent CO poisoning > CXR revealed large YOLIS lesion, CT Scan revealed 4.6cm YOLIS suspicious mass, PET Scan revealed solitary lesion (SUV 34). Hs stable pulmonary nodules C/W Granulomas. The patient had bronchoscopy by Dr Watts on 09/12/19 revealing poorly- differentiated NSCLC, C/W Squamous cell carcinoma. He completed definitive radiation therapy and did not follow-up as recommended with medical oncology following this. 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 He was just discharged home on 09/13/2020. Radiation oncology was following and he received a total of 6 radiation treatments to his spine. On 09/18/20 he represented after sustaining a fall down 3-4 steps at home. X-rays revealed multiple acute fracture lines involving the T9 and T10 vertebral bodies through the site of previous vertebral plasty in the vertebral body just above. He underwent procedure with ortho spine and then was discharged with rehab to improve performance prior to further evaluation of treatment options. he was admitted again in 10/24 with progressive weakness and mental status changes. this was possibly due to pain medications and UTI. He did have problems with intractable pain, after stopping his pain medications at admission. These were resumed and adjusted to the patient was able to be discharged back home. The patient's tumor is a high PD1 expressor. After the last hospital discharge he was able to improve with physical therapy at home, and started PD1 immunotherapy with Keytruda on 12/06/20. He is status post 2 cycles with the most recent one in 12/27/20 The patient is a somewhat poor historian and aberrantly of the history was obtained from his was at the bedside. She states that the day after his second dose, the patient developed hallucinations, seeing objects and people were not there. This slowly improve over about 2-3 days. Earlier this week he was seen by his home care nurses felt that his speech was slurred. She therefore advised him to come into the emergency room. he was admitted and consult placed. The patient had a CT of the brain with contrast in the ER that was negative. He has been seen by neurology. The patient's states that she herself did not notice significant slurring of speech and feels that some of this could have been due to the patient having significant dry mouth. chest x-ray showed nonspecific patchy opacities and retrocardiac opacity. Patient however had no signs or symptoms suggestive of infection. Dr. Crawley showed some mild plaque bilaterally, without hemodynamically significant stenosis. Review of Systems Constitutional: Reports chronic pain, Reports weakness Eyes: denies blurred vision, denies pain Ears: deny: decreased hearing, ear discharge, earache, tinnitus Ears, nose, mouth and throat: Denies headache, Denies sore throat Cardiovascular: Reports decreased exercise tolerance Respiratory: Reports as per HPI Gastrointestinal: Denies abdominal pain, Denies diarrhea, Denies nausea, Denies vomiting Genitourinary: Reports as per HPI Musculoskeletal: Reports as per HPI (agent is improved since discharge, and is now able to ambulate short distances with a walker, and transfer on his own), Reports fractures, Reports gait dysfunction, Reports low back pain Integumentary: Denies pruritus, Denies rash Neurological: Reports as per HPI Psychiatric: Reports difficulty concentrating, Reports hallucinations Endocrine: Reports fatigue Hematologic/Lymphatic: Reports as per HPI Past Medical History Past Medical History: Atrial Fibrillation, Coronary Artery Disease (CAD), Cancer, Heart Failure, Hypertension, Myocardial Infarction (NC), Osteoarthritis (OA), Prostate Disorder, Respiratory Disorder Additional Past Medical History / Comment(s): Pt recently admitted to [facility] on 08/22/20 with intractable low back pain with kyphoplasty T10 with biopsy (pt has mets to bone) Pt recently in [facility] ER on 09/03/20 with constipation/colitis. 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 and was on Rocephin for 6 weeks in 2011-pt and spouse cannot recall if it was MRSA, BPH, large kidney stone pt was told he would never be able to pass-cannot recall which side Last Myocardial Infarction Date:: mar 2018 History of Any Multi-Drug Resistant Organisms: None Reported Past Surgical History: Back Surgery, Heart Catheterization With Stent, Joint Replacement, Orthopedic Surgery, Pacemaker Additional Past Surgical History / Comment(s): 08/2019 kyphoplasty/bx T10, 09/2019 bronch with bx/brushings/BAL, 2017 pacemaker, bilateral knee arthroscopies, bilateral total knee replacements, R knee surgery for patellar tendon tear, PCI with stents x 3, colonoscopy, bilateral cataract removals. Past Anesthesia/Blood Transfusion Reactions: Motion Sickness Date of Last Stent Placement:: 03/23 Type of Cardiac Device: Permanent Pacemaker Device Placement Date:: 02/20 Past Psychological History: No Psychological Hx Reported Additional Psychological History / Comment(s): [facility] with spouse and palliative home care w/ [facility]. Pt getting up with PT with back/chest brace in place and getting into wheelchair per spouse. Requires two to assist Smoking Status: Former smoker Past Alcohol Use History: Rare Additional Past Alcohol Use History / Comment(s): Pt started smoking in 1953 and quit in 1977 Past Drug Use History: None Reported - Past Family History Sister(s) Family Medical History: Cancer Brother(s) Family Medical History: Cancer Additional Family Medical History / Comment(s): 3 brothers cancer Father Family Medical History: Coronary Artery Disease (CAD), CVA/TIA, Myocardial Infarction (NC) Additional Family Medical History / Comment(s): Father had TIAs and MIs. He between the ages of 62-68yrs from what pt believes was a NC Mother Family Medical History: Myocardial Infarction (NC) Additional Family Medical History / Comment(s): Mother of a NC at the age of 88yrs. Medications and Allergies Home Medications Medication Instructions Recorded Confirmed Type Multivitamins, Thera [Multivitamin 1 tab PO DAILY 11/27/16 01/03/21 History (formulary)] Tamsulosin [Flomax] 0.4 mg PO DAILY 02/19/18 01/03/21 History carvediloL [Coreg] 3.125 mg PO BID 08/22/20 01/03/21 History Lactulose [Constulose] 10 gm PO DAILY PRN 09/05/20 01/03/21 History Sennosides [Senokot] 17.2 mg PO BID 30 Days #120 tab 09/12/20 01/03/21 Rx Gabapentin [Neurontin] 300 mg PO TID cap 10/04/20 01/03/21 Rx Ascorbic Acid [Vitamin C] 2,000 mg PO HS 10/31/20 01/03/21 History Calcium Carbonate [Calcium] 1,200 mg PO HS 10/31/20 01/03/21 History Cholecalciferol [Vitamin D3 (25 25 mcg PO HS 10/31/20 01/03/21 History Mcg = 1000 Iu)] Furosemide [Lasix] 20 mg PO DAILY@0600 10/31/20 01/03/21 History oxyCODONE HCL [OxyIR] 5 mg PO Q6H PRN 10/31/20 01/03/21 History ALPRAZolam [Xanax] 0.25 mg PO BID PRN 01/03/21 01/03/21 History Apixaban [Eliquis] 5 mg PO BID 01/03/21 01/03/21 History Morphine Sulfate ER [Ms Contin] 15 mg PO Q12HR 01/03/21 01/03/21 History Pantoprazole Sodium [Protonix] 40 mg PO DAILY 01/03/21 01/03/21 History Potassium Chloride ER [K-Dur 10] 10 meq PO DAILY 01/03/21 01/03/21 History Cefuroxime Axetil [Ceftin] 500 mg PO BID 5 Days #10 tab 01/04/21 Rx Allergies Allergy/AdvReac Type Severity Reaction Status Date / Time hydrocodone [From Vicodin] AdvReac Hallucinati Verified 01/03/21 17:51 ons Tixqcmd-Yfy-Itl Reductase AdvReac MUSCLE PAIN Verified 01/03/21 17:51 Inhibitor Physical Exam Vitals: Vital Signs Temp Pulse Pulse Resp BP BP Pulse Ox 01/04/21 12:54 98.7 F 84 18 120/82 100 01/04/21 02:00 97.9 F 78 24 117/70 90 L 01/04/21 00:40 98 01/03/21 22:17 97.8 F 79 16 118/75 92 L 01/03/21 21:32 98.7 F 88 18 137/93 96 Intake and Output 01/04/21 01/04/21 01/04/21 06:59 14:59 22:59 Output Total 575 Balance -575 Output: Urine 575 Other: Voiding Method Urinal - Constitutional General appearance: no acute distress - EENT Eyes: EOMI, PERRLA ENT: hearing grossly normal, normal oropharynx - Neck Neck: no lymphadenopathy Thyroid: bilateral: normal size - Respiratory Respiratory: bilateral: CTA - Cardiovascular Rhythm: irregularly irregular Heart sounds: normal: S1, S2 - Gastrointestinal General gastrointestinal: normal bowel sounds, soft - Integumentary Integumentary: normal - Neurologic Neurologic: CNII-XII intact - Musculoskeletal Musculoskeletal: generalized weakness, strength equal bilaterally - Psychiatric Psychiatric: A&O x's 3, appropriate affect Results CBC & Chem 7: 01/04/21 05:01 01/04/21 05:01 Labs: Abnormal Lab Results - Last 24 Hours (Table) 01/03/21 01/03/21 01/03/21 Range/Units 18:18 18:18 18:18 RBC 4.25 L (4.30-5.90) m/uL Hgb 11.6 L (13.0-17.5) gm/dL Hct 36.9 L (39.0-53.0) % MCHC (31.0-37.0) g/dL RDW (11.5-15.5) % Sodium 136 L (137-145) mmol/L Carbon Dioxide 34 H (22-30) mmol/L Creatinine 0.44 L (0.66-1.25) mg/dL Glucose 120 H (74-99) mg/dL POC Glucose (mg/dL) (75-99) mg/dL Alkaline Phosphatase 166 H (38-126) U/L Albumin 3.0 L (3.5-5.0) g/dL HDL Cholesterol (40.0-60.0) mg/dL Urine Protein Trace H (Negative) Urine Ketones 1+ H (Negative) Ur Leukocyte Esterase Small H (Negative) Urine WBC 7 H (0-5) /hpf Hyaline Casts 15 H (0-2) /lpf Urine Mucus Many H (None) /hpf Urine Opiates Screen Detected H (NotDetected) Ur Oxycodone Screen Detected H (NotDetected) 01/03/21 01/04/21 01/04/21 Range/Units 18:24 05:01 05:01 RBC 3.79 L (4.30-5.90) m/uL Hgb 10.6 L (13.0-17.5) gm/dL Hct 34.8 L (39.0-53.0) % MCHC 30.6 L (31.0-37.0) g/dL RDW 15.6 H (11.5-15.5) % Sodium (137-145) mmol/L Carbon Dioxide (22-30) mmol/L Creatinine (0.66-1.25) mg/dL Glucose (74-99) mg/dL POC Glucose (mg/dL) 111 H (75-99) mg/dL Alkaline Phosphatase (38-126) U/L Albumin (3.5-5.0) g/dL HDL Cholesterol 28.0 L (40.0-60.0) mg/dL Urine Protein (Negative) Urine Ketones (Negative) Ur Leukocyte Esterase (Negative) Urine WBC (0-5) /hpf Hyaline Casts (0-2) /lpf Urine Mucus (None) /hpf Urine Opiates Screen (NotDetected) Ur Oxycodone Screen (NotDetected) 01/04/21 Range/Units 05:01 RBC (4.30-5.90) m/uL Hgb (13.0-17.5) gm/dL Hct (39.0-53.0) % MCHC (31.0-37.0) g/dL RDW (11.5-15.5) % Sodium 135 L (137-145) mmol/L Carbon Dioxide (22-30) mmol/L Creatinine 0.36 L (0.66-1.25) mg/dL Glucose (74-99) mg/dL POC Glucose (mg/dL) (75-99) mg/dL Alkaline Phosphatase (38-126) U/L Albumin (3.5-5.0) g/dL HDL Cholesterol (40.0-60.0) mg/dL Urine Protein (Negative) Urine Ketones (Negative) Ur Leukocyte Esterase (Negative) Urine WBC (0-5) /hpf Hyaline Casts (0-2) /lpf Urine Mucus (None) /hpf Urine Opiates Screen (NotDetected) Ur Oxycodone Screen (NotDetected) Comments: carotid Doppler report reviewed Chest x-ray: report reviewed CT Scan - head: report reviewed Assessment and Plan (1) Slurred speech Narrative/Plan: sent in by his home care nurse for slurred speech, especially in the setting of recent hallucinations. The concern was for CVA. Patient has been evaluated by neurology. CT of the brain is negative for the same. a contrast study, and did not show any evidence of a mass lesion either. Carotid Dopplers did not show significant findings. A small TIA/CVA cannot be totally ruled out. At this time the patient's speech appears to be quite clear. He is already on anticoagulation with eliquis for history of atrial fibrillation. Therefore from my standpoint he can be discharged home whenever felt to be stable by neurology. (the patient cannot have an MRI of the brain due to his pacemaker. However given rapid resolution of symptoms which were possibly questionable to begin with, this does not appear to be indicated at this time) Current Visit: Yes Status: Acute Code(s): R47.81 - SLURRED SPEECH SNOMED Code(s): 484463955 (2) Hallucinations Narrative/Plan: the patient had some visual hallucinations starting after his recent immunotherapy dose, lasting for about 2-3 days. Etiology of this is unknown. While cerebritis can occur with PD1 immunotherapy, this is quite rare side effect and usually causes more severe symptoms such as headaches and fevers, and more often encephalitis-type picture. The patient and his were advised that, therefore, at this time it would be difficult to attribute this to his treatment. At this time the plan would be to proceed with his next cycle on schedule and see how he does. Effect of one of his other medications is also possibility. check thyroid studies and cortisone for hormone related effects from immunotherapy as a possible cause. As symptoms have resolved, this can be done as an outpatient, if the patient is otherwise felt to be ready for discharge Current Visit: Yes Status: Acute Code(s): R44.3 - HALLUCINATIONS, UNSPECIFIED SNOMED Code(s): 5021785 (3) Squamous cell carcinoma of lung, stage IV Narrative/Plan: diagnostic and therapeutic circumstances as described. At this time the plan would be to continue chemotherapy on schedule post discharge. Current Visit: No Status: Acute Priority: High Code(s): C34.90 - MALIGNANT NEOPLASM OF UNSP PART OF UNSP BRONCHUS OR LUNG SNOMED Code(s): 038075457 (4) Pain due to malignant neoplasm metastatic to bone Narrative/Plan: this is much improved since discharge. The patient's mobility is also gradually improving with ongoing physical therapy. Continue current analgesic regimen. Current Visit: No Status: Acute Priority: High Code(s): G89.3 - NEOPLASM RELATED PAIN (ACUTE) (CHRONIC); C79.51 - SECONDARY MALIGNANT NEOPLASM OF BONE SNOMED Code(s): 157179376
[2021-01-04] MEDS ORDERED: ASCORBIC ACID 500 MG TAB PO SCH (21:00)
[2021-01-04] MEDS ORDERED: CALCIUM CARBONATE 500 MG CHEWABLE PO SCH (21:00)
[2021-01-04 21:30] LABS: Hemoglobin A1C 4.5 % (4.0-6.0)
--- NOTE | 2021-01-24 00:26 | P.DS ---
Providers Date of admission: 01/03/21 20:01 Expected date of discharge: 01/04/21 Attending physician: Shannon Nichols Consults: 01/03/21 19:59 Consult Physician Routine Consulting Provider: Anthony Cary Consult Reason/Comments: oncologicl care Do you want consulting provider notified?: Yes 01/03/21 20:00 Consult Physician Routine Consulting Provider: Jenn Byers Consult Reason/Comments: slurred speach Do you want consulting provider notified?: Yes Primary care physician: Fredy Rodriguez Hospital Course: Discharge Diagnsis Slurred speech without any other focal neurological symptoms. Likely due to dry mouth and tiredness. Resolved now. No evidence of CVA as per CT head. 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 Hospital course Patient is a 80-year-old male with a known history of stage IV lung cancer with mets to bone, currently immunotherapy, paroxysmal atrial fibrillation on anticoagulation with Eliquis, hypertension, history of OH, coronary artery disease with history of stent placement, pacemaker placement and previous history of smoking and prostate disorder as well as osteoarthritis was brought to the hospital by ambulance due to complaints of slurred speech. Patient was noticed by his visiting nurse that he was having slurred speech for the past 2 to 3 days prior to admission. Patient received second dose of immunotherapy on 12/27/2020 and next day on 12/28/2020 patient was having hallucinations which persisted for 3 days and slowly resolved. Again he was having slurred speech for the past 2 to 3 days and was brought to the hospital. Otherwise patient is awake alert and oriented x3. No focal weakness. No difficulty swallowing. No trouble finding words. No complaints of chest pain or shortness of. No leg weakness. Denied any bladder or bowel incontinence. No seizure activity noted. No fluid fever or chills. Laboratory data showed WBC 7.3 hemoglobin 11.6 and platelets 375 Sodium 136 potassium 4.2 chloride 98 bicarbonate 34 BUN 11 and creatinine 0.44 blood sugar is 120 A1c level is a 4.5 proBNP 1340 Urinalysis is negative for infection. UDS is positive for opiates and oxycodone CT head showed no evidence of acute intracranial hemorrhage midline shift or mass-effect. Chronic changes no significant change since 10/01/2020 Chest x-rays showed new retrocardiac opacity concerning for developing pneumonia. Pulmonary vascular congestion and cardiomegaly. Wall nodules concerning for metastasis. Left upper lobe stable patchy opacity could be on the basis of scarring. EKG showed paced rhythm. Patient was continued on telemetry monitoring. Continue with home medications including Eliquis for stroke prophylaxis with history of atrial fibrillation. Patient currently does not have any focal neurological symptoms. Repeat CT was done showed no acute intracranial process. Carotid duplex showed no hemodynamically significant stenosis. Patient is cleared from neurology standpoint. Patient is also seen by oncology. CT of the brain with contrast showed no evidence of metastatic lesions which was done today. However small TIA cannot be ruled out at this time. He is already on anticoagulation with Eliquis. Patient is also cleared from oncology standpoint. Patient will need to follow-up with oncology as an outpatient. Acetylcholine receptor antibiotics and calcium channel lawrence antibodies were ordered as per neurology which can be followed up as an outpatient. Otherwise patient is being pain management regimen. Pain is fairly controlled. Discussed with the patient and his at bedside in detail. Patient is being discharged home today. Discharge vitals reviewed. Patient Condition at Discharge: Stable Plan - Discharge Summary New Discharge Prescriptions: New Cefuroxime Axetil [Ceftin] 500 mg PO BID 5 Days #10 tab Continue Multivitamins, Thera [Multivitamin (formulary)] 1 tab PO DAILY Tamsulosin [Flomax] 0.4 mg PO DAILY carvediloL [Coreg] 3.125 mg PO BID Lactulose [Constulose] 10 gm PO DAILY PRN PRN Reason: Constipation Sennosides [Senokot] 17.2 mg PO BID 30 Days #120 tab oxyCODONE HCL [OxyIR] 5 mg PO Q6H PRN PRN Reason: Breakthrough Pain Cholecalciferol [Vitamin D3 (25 Mcg = 1000 Iu)] 25 mcg PO HS Furosemide [Lasix] 20 mg PO DAILY@0600 Calcium Carbonate [Calcium] 1,200 mg PO HS Ascorbic Acid [Vitamin C] 2,000 mg PO HS Pantoprazole Sodium [Protonix] 40 mg PO DAILY ALPRAZolam [Xanax] 0.25 mg PO BID PRN PRN Reason: Anxiety Gabapentin [Neurontin] 300 mg PO TID cap Potassium Chloride ER [K-Dur 10] 10 meq PO DAILY Morphine Sulfate ER [Ms Contin] 15 mg PO Q12HR Apixaban [Eliquis] 5 mg PO BID Discharge Medication List Multivitamins, Thera [Multivitamin (formulary)] 1 tab PO DAILY 11/27/16 [History] Tamsulosin [Flomax] 0.4 mg PO DAILY 02/19/18 [History] carvediloL [Coreg] 3.125 mg PO BID 08/22/20 [History] Lactulose [Constulose] 10 gm PO DAILY PRN 09/05/20 [History] Sennosides [Senokot] 17.2 mg PO BID 30 Days #120 tab 09/12/20 [Rx] Gabapentin [Neurontin] 300 mg PO TID cap 10/04/20 [Rx] Ascorbic Acid [Vitamin C] 2,000 mg PO HS 10/31/20 [History] Calcium Carbonate [Calcium] 1,200 mg PO HS 10/31/20 [History] Cholecalciferol [Vitamin D3 (25 Mcg = 1000 Iu)] 25 mcg PO HS 10/31/20 [History] Furosemide [Lasix] 20 mg PO DAILY@0600 10/31/20 [History] oxyCODONE HCL [OxyIR] 5 mg PO Q6H PRN 10/31/20 [History] ALPRAZolam [Xanax] 0.25 mg PO BID PRN 01/03/21 [History] Apixaban [Eliquis] 5 mg PO BID 01/03/21 [History] Morphine Sulfate ER [Ms Contin] 15 mg PO Q12HR 01/03/21 [History] Pantoprazole Sodium [Protonix] 40 mg PO DAILY 01/03/21 [History] Potassium Chloride ER [K-Dur 10] 10 meq PO DAILY 01/03/21 [History] Cefuroxime Axetil [Ceftin] 500 mg PO BID 5 Days #10 tab 01/04/21 [Rx] Follow up Appointment(s)/Referral(s): Fredy Rodriguez III, MD [Primary Care Provider] - 1-2 days Patient Instructions/Handouts: Heart Failure (ER), Viral Pneumonia (IP) Discharge Disposition: HOME SELF-CARE
--- NOTE | 2021-01-24 00:28 | P.HPIM ---
History of Present Illness H&P Date: 01/04/21 Chief Complaint: slurred sppech Patient is a 80-year-old male with a known history of stage IV lung cancer with mets to bone, currently immunotherapy, paroxysmal atrial fibrillation on anticoagulation with Eliquis, hypertension, history of AK, coronary artery disease with history of stent placement, pacemaker placement and previous history of smoking and prostate disorder as well as osteoarthritis was brought to the hospital by ambulance due to complaints of slurred speech. Patient was noticed by his visiting nurse that he was having slurred speech for the past 2 to 3 days prior to admission. Patient received second dose of immunotherapy on 12/27/2020 and next day on 12/28/2020 patient was having hallucinations which persisted for 3 days and slowly resolved. Again he was having slurred speech for the past 2 to 3 days and was brought to the hospital. Otherwise patient is awake alert and oriented x3. No focal weakness. No difficulty swallowing. No trouble finding words. No complaints of chest pain or shortness of. No leg weakness. Denied any bladder or bowel incontinence. No seizure activity noted. No fluid fever or chills. Laboratory data showed WBC 7.3 hemoglobin 11.6 and platelets 375 Sodium 136 potassium 4.2 chloride 98 bicarbonate 34 BUN 11 and creatinine 0.44 blood sugar is 120 A1c level is a 4.5 proBNP 1340 Urinalysis is negative for infection. UDS is positive for opiates and oxycodone CT head showed no evidence of acute intracranial hemorrhage midline shift or mass-effect. Chronic changes no significant change since 10/01/2020 Chest x-rays showed new retrocardiac opacity concerning for developing pneumonia. Pulmonary vascular congestion and cardiomegaly. Wall nodules concerning for metastasis. Left upper lobe stable patchy opacity could be on the basis of scarring. EKG showed paced rhythm. Review of Systems Constitutional: Patient denies any fever or chills . No generalized weakness or weight loss. Abdomen: Patient denied nausea vomiting and diarrhea and abdominal pain. Cardiovascular: Patient denies any chest pain or short of breath no palpitations. Respiratory: patient denied any cough or sputum production. No shortness of breath Neurologic: Patient denied any numbness or tingling headache. slurred speech Musculoskeletal: Patient denies any complaints of joint swelling or deformity. Skin: Negative Psychiatric: Negative Endocrine: No heat or cold intolerance. No recent weight gain. Genitourinary: No dysuria or hematuria. All other 14 point ROS negative except the above Past Medical History Past Medical History: Atrial Fibrillation, Coronary Artery Disease (CAD), Cancer, Heart Failure, Hypertension, Myocardial Infarction (AK), Osteoarthritis (OA), Prostate Disorder, Respiratory Disorder Additional Past Medical History / Comment(s): Pt recently admitted to [facility] on 08/22/20 with intractable low back pain with kyphoplasty T10 with biopsy (pt has mets to bone) Pt recently in [facility] ER on 09/03/20 with constipation/colitis. 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 and was on Rocephin for 6 weeks in 2011-pt and spouse cannot recall if it was MRSA, BPH, large kidney stone pt was told he would never be able to pass-cannot recall which side Last Myocardial Infarction Date:: mar 2018 History of Any Multi-Drug Resistant Organisms: None Reported Past Surgical History: Back Surgery, Heart Catheterization With Stent, Joint Replacement, Orthopedic Surgery, Pacemaker Additional Past Surgical History / Comment(s): 08/2019 kyphoplasty/bx T10, 09/2019 bronch with bx/brushings/BAL, 2018 pacemaker, bilateral knee arthroscopies, bilateral total knee replacements, R knee surgery for patellar tendon tear, PCI with stents x 3, colonoscopy, bilateral cataract removals. Past Anesthesia/Blood Transfusion Reactions: Motion Sickness Date of Last Stent Placement:: 03/23 Type of Cardiac Device: Permanent Pacemaker Device Placement Date:: 02/20 Past Psychological History: No Psychological Hx Reported Additional Psychological History / Comment(s): Pt at [facility] at home with spouse and palliative home care w/ [facility]. Pt getting up with PT with back/chest brace in place and getting into wheelchair per spouse. Requires two to assist Smoking Status: Former smoker Past Alcohol Use History: Rare Additional Past Alcohol Use History / Comment(s): Pt started smoking in 1953 and quit in 1977 Past Drug Use History: None Reported - Past Family History Sister(s) Family Medical History: Cancer Brother(s) Family Medical History: Cancer Additional Family Medical History / Comment(s): 3 brothers cancer Father Family Medical History: Coronary Artery Disease (CAD), CVA/TIA, Myocardial Inf arction (AK) Additional Family Medical History / Comment(s): Father had TIAs and MIs. He between the ages of 62-68yrs from what pt believes was a AK Mother Family Medical History: Myocardial Infarction (AK) Additional Family Medical History / Comment(s): Mother of a AK at the age of 88yrs. Medications and Allergies Home Medications Medication Instructions Recorded Confirmed Type Multivitamins, Thera [Multivitamin 1 tab PO DAILY 11/27/16 01/03/21 History (formulary)] Tamsulosin [Flomax] 0.4 mg PO DAILY 02/19/18 01/03/21 History carvediloL [Coreg] 3.125 mg PO BID 08/22/20 01/03/21 History Lactulose [Constulose] 10 gm PO DAILY PRN 09/05/20 01/03/21 History Sennosides [Senokot] 17.2 mg PO BID 30 Days #120 tab 09/12/20 01/03/21 Rx Gabapentin [Neurontin] 300 mg PO TID cap 10/04/20 01/03/21 Rx Ascorbic Acid [Vitamin C] 2,000 mg PO HS 10/31/20 01/03/21 History Calcium Carbonate [Calcium] 1,200 mg PO HS 10/31/20 01/03/21 History Cholecalciferol [Vitamin D3 (25 25 mcg PO HS 10/31/20 01/03/21 History Mcg = 1000 Iu)] Furosemide [Lasix] 20 mg PO DAILY@0600 10/31/20 01/03/21 History oxyCODONE HCL [OxyIR] 5 mg PO Q6H PRN 10/31/20 01/03/21 History ALPRAZolam [Xanax] 0.25 mg PO BID PRN 01/03/21 01/03/21 History Apixaban [Eliquis] 5 mg PO BID 01/03/21 01/03/21 History Morphine Sulfate ER [Ms Contin] 15 mg PO Q12HR 01/03/21 01/03/21 History Pantoprazole Sodium [Protonix] 40 mg PO DAILY 01/03/21 01/03/21 History Potassium Chloride ER [K-Dur 10] 10 meq PO DAILY 01/03/21 01/03/21 History Cefuroxime Axetil [Ceftin] 500 mg PO BID 5 Days #10 tab 01/04/21 Rx Allergies Allergy/AdvReac Type Severity Reaction Status Date / Time hydrocodone [From Vicodin] AdvReac Hallucinati Verified 01/03/21 17:51 ons Vwmovom-Dwu-Rep Reductase AdvReac MUSCLE PAIN Verified 01/03/21 17:51 Inhibitor Physical Exam Vitals: Vital Signs Temp Pulse Pulse Resp BP BP Pulse Ox 01/04/21 02:00 97.9 F 78 24 117/70 90 L 01/04/21 00:40 98 01/03/21 22:17 97.8 F 79 16 118/75 92 L 01/03/21 21:32 98.7 F 88 18 137/93 96 01/03/21 17:51 98 F 89 18 130/90 98 Intake and Output 01/03/21 01/04/21 01/04/21 22:59 06:59 14:59 Output Total 200 Balance -200 Output: Urine 200 Other: Voiding Method Urinal Weight 117.934 kg PHYSICAL EXAMINATION: Patient is lying in the bed comfortably, no acute distress, awake alert and oriented.. HEENT: Normocephalic. Neck is supple. Pupils reactive. Nostrils clear. Oral cavity is moist. Ears reveal no drainage. Neck reveals no JVD, carotid bruits, or thyromegaly. CHEST EXAMINATION: Trachea is central. Symmetrical expansion. Lung devries clear to auscultation and percussion. CARDIAC: Normal S1, S2 with no gallops. No murmurs ABDOMEN: Soft. Bowel sounds normal. No organomegaly. No abdominal bruits. Extremities: reveal no edema. No clubbing or cyanosis Neurologically awake, alert, oriented x3 with well-coordinated movements. No focal deficits noted Skin: No rash or skin lesions. Psychiatric: Coperative. Nonsuicidal Musculoskeletal: No joint swelling or deformity. Normal range of motion. Results CBC & Chem 7: 01/04/21 05:01 01/04/21 05:01 Labs: Abnormal Lab Results - Last 24 Hours (Table) 01/03/21 01/03/21 01/03/21 Range/Units 18:18 18:18 18:18 RBC 4.25 L (4.30-5.90) m/uL Hgb 11.6 L (13.0-17.5) gm/dL Hct 36.9 L (39.0-53.0) % MCHC (31.0-37.0) g/dL RDW (11.5-15.5) % Sodium 136 L (137-145) mmol/L Carbon Dioxide 34 H (22-30) mmol/L Creatinine 0.44 L (0.66-1.25) mg/dL Glucose 120 H (74-99) mg/dL POC Glucose (mg/dL) (75-99) mg/dL Alkaline Phosphatase 166 H (38-126) U/L Albumin 3.0 L (3.5-5.0) g/dL Urine Protein Trace H (Negative) Urine Ketones 1+ H (Negative) Ur Leukocyte Esterase Small H (Negative) Urine WBC 7 H (0-5) /hpf Hyaline Casts 15 H (0-2) /lpf Urine Mucus Many H (None) /hpf Urine Opiates Screen Detected H (NotDetected) Ur Oxycodone Screen Detected H (NotDetected) 01/03/21 01/04/21 01/04/21 Range/Units 18:24 05:01 05:01 RBC 3.79 L (4.30-5.90) m/uL Hgb 10.6 L (13.0-17.5) gm/dL Hct 34.8 L (39.0-53.0) % MCHC 30.6 L (31.0-37.0) g/dL RDW 15.6 H (11.5-15.5) % Sodium 135 L (137-145) mmol/L Carbon Dioxide (22-30) mmol/L Creatinine 0.36 L (0.66-1.25) mg/dL Glucose (74-99) mg/dL POC Glucose (mg/dL) 111 H (75-99) mg/dL Alkaline Phosphatase (38-126) U/L Albumin (3.5-5.0) g/dL Urine Protein (Negative) Urine Ketones (Negative) Ur Leukocyte Esterase (Negative) Urine WBC (0-5) /hpf Hyaline Casts (0-2) /lpf Urine Mucus (None) /hpf Urine Opiates Screen (NotDetected) Ur Oxycodone Screen (NotDetected) Thrombosis Risk Factor Assmnt - DVT/VTE Prophylaxis DVT/VTE Prophylaxis: Pharmacologic Prophylaxis ordered - Choose All That Apply Any of the Below Risk Factors Present?: Yes Each Factor Represents 1 point: Medical pt on bed rest, Obesity (BMI >25) Other Risk Factors: Yes Each Risk Factor Represents 3 Points: Age 75 years or older Other congenital or acquired thrombophilia - If yes, enter type in comment: No Thrombosis Risk Factor Assessment Total Risk Factor Score: 5 Thrombosis Risk Factor Assessment Level: High Risk Assessment and Plan Assessment: Slurred speech without any focal neurological symptoms. Likely due to dry mouth and tiredness. Resolved now. No evidence of CVA as per CT head. 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 Plan: Patient is being continued on telemetry monitoring. Continue with home medications including Eliquis for stroke prophylaxis with history of atrial fibrillation. Patient currently does not have any focal neurological symptoms. Repeat CT was done showed no acute intracranial process. Carotid duplex showed no hemodynamically significant stenosis. Patient is cleared from neurology standpoint. Patient is also seen by oncology. CT of the brain with contrast showed no evidence of metastatic lesions which was done today. However small TIA cannot be ruled out at this time. He is already on anticoagulation with Eliquis. Patient is also cleared from oncology standpoint. Patient will need to follow-up with oncology as an outpatient. Acetylcholine receptor antibiotics and calcium channel lawrence antibodies were ordered as per neurology which can be followed up as an outpatient. Otherwise patient is being pain management regimen. Pain is fairly controlled. Discussed with the patient and his at bedside in detail. Time with Patient: Greater than 30
--- NOTE | 2021-01-29 08:05 | CDI ---
Documentation Clarification Form Date: 01/29/2021 07:55:59 AM From: Dereck Miranda Admit Date: 01/03/2021 08:01:00 PM Patient Name: De Prieto Visit Number: [id number] Discharge Date: 01/04/2021 08:04:00 PM ATTENTION: The Clinical Documentation Specialists (CDI) and [facility] Coding Staff appreciate your assistance in clarifying documentation. Please respond to the clarification below the line at the bottom and electronically sign. The CDI & [facility] Coding staff will review the response and follow-up if needed. Please note: Queries are made part of the Legal Health Record. If you have any questions, please contact the author of this message via ITS. Dr. Shannon Nichols The patients principal diagnosis the diagnosis that was chiefly responsible for the admission - has not been clearly identified and clarification is requested. Discharge summary states small TIA cannot be ruled out and X-ray concerning for PNA. States etiology of slurred speech may be fatigue. The patient presented with the following: slurred speech History/Risk factors: metastatic cancer Clinical Indicators: Lab findings: WNL Radiology findings: CT brain-no mets, no evidence of CVA. Treatment: Consults: neurology, oncology In your professional opinion, can you please clarify which diagnosis, after study, was the reason chiefly responsible for the admission? [ ] TIA [ ] Pneumonia [ ] Other, please specify [ ] Unable to determine unable to determine MTDD
== END 2021-01-04 20:04 | disposition home or self-care (01) | DRG 194 ==
LOC: EC 17:39 → 5NMEDONC 20:01
PROVIDERS: ADMIT Hospitalist; ATTEND Hospitalist
DX: J18.9 Pneumonia, unspecified organism (principal); C79.51 Secondary malignant neoplasm of bone; C34.92 Malignant neoplasm of unspecified part of left bronchus or lung; I48.20 Chronic atrial fibrillation, unspecified; R47.81 Slurred speech; Z79.01 Long term (current) use of anticoagulants; I48.91 Unspecified atrial fibrillation; I25.10 Atherosclerotic heart disease of native coronary artery without angina pectoris; Z95.0 Presence of cardiac pacemaker; Z87.891 Personal history of nicotine dependence; I25.2 Old myocardial infarction; Z82.49 Family history of ischemic heart disease and other diseases of the circulatory system; G47.33 Obstructive sleep apnea (adult) (pediatric); E66.9 Obesity, unspecified; Z68.35 Body mass index [BMI] 35.0-35.9, adult; Z92.3 Personal history of irradiation; Z95.5 Presence of coronary angioplasty implant and graft; Z96.653 Presence of artificial knee joint, bilateral; Z79.899 Other long term (current) drug therapy; J84.10 Pulmonary fibrosis, unspecified; I50.9 Heart failure, unspecified; I11.0 Hypertensive heart disease with heart failure; G89.3 Neoplasm related pain (acute) (chronic); I48.0 Paroxysmal atrial fibrillation
CPT/HCPCS: 36415; 70450; 70460; 71046; 80048; 80053; 80061; 80306; 81001; 83036; 83519; 83880; 84484; 85025; 85610; 85730; 87040; 93005; 93880; 94660; 96365; 99285

== ENCOUNTER 2021-01-30 10:01 | Emergency (ER) | payer MEDICARE ==
[2021-01-30] MEDS ORDERED: HYDROmorphone 1 MG/ML 1 ML SYRINGE IVP STA ×2 (10:23→10:53)
--- NOTE | 2021-01-30 10:38 | ED ---
General Adult HPI - General Stated complaint: abd pain Time Seen by Provider: 01/30/21 10:18 Source: patient, EMS, RN notes reviewed Mode of arrival: EMS Limitations: physical limitation - History of Present Illness Initial comments: This a 80-year-old male presents emergency Department chief complaint abdominal pain, constipation. Patient's had recurrent constipation secondary to pain meds from palliative care. Patient has cancer is currently on palliative care light states that he needs to have a bowel movement. Patient states that they tried a soapsuds enema on Thursday with no relief. Patient denies any other complaints at this time. - Related Data Home Medications Medication Instructions Recorded Confirmed Multivitamins, Thera [Multivitamin 1 tab PO DAILY 11/27/16 01/03/21 (formulary)] Tamsulosin [Flomax] 0.4 mg PO DAILY 02/19/18 01/03/21 carvediloL [Coreg] 3.125 mg PO BID 08/22/20 01/03/21 Lactulose [Constulose] 10 gm PO DAILY PRN 09/05/20 01/03/21 Ascorbic Acid [Vitamin C] 2,000 mg PO HS 10/31/20 01/03/21 Calcium Carbonate [Calcium] 1,200 mg PO HS 10/31/20 01/03/21 Cholecalciferol [Vitamin D3 (25 25 mcg PO HS 10/31/20 01/03/21 Mcg = 1000 Iu)] Furosemide [Lasix] 20 mg PO DAILY@0600 10/31/20 01/03/21 oxyCODONE HCL [OxyIR] 5 mg PO Q6H PRN 10/31/20 01/03/21 ALPRAZolam [Xanax] 0.25 mg PO BID PRN 01/03/21 01/03/21 Apixaban [Eliquis] 5 mg PO BID 01/03/21 01/03/21 Morphine Sulfate ER [Ms Contin] 15 mg PO Q12HR 01/03/21 01/03/21 Pantoprazole Sodium [Protonix] 40 mg PO DAILY 01/03/21 01/03/21 Potassium Chloride ER [K-Dur 10] 10 meq PO DAILY 01/03/21 01/03/21 Previous Rx's Medication Instructions Recorded Sennosides [Senokot] 17.2 mg PO BID 30 Days #120 tab 09/12/20 Gabapentin [Neurontin] 300 mg PO TID cap 10/04/20 Cefuroxime Axetil [Ceftin] 500 mg PO BID 5 Days #10 tab 01/04/21 Allergies Allergy/AdvReac Type Severity Reaction Status Date / Time hydrocodone [From Vicodin] AdvReac Hallucinati Verified 01/30/21 10:31 ons Detzotu-Kpn-Pqd Reductase AdvReac MUSCLE PAIN Verified 01/30/21 10:31 Inhibitor Review of Systems ROS Statement: Those systems with pertinent positive or pertinent negative responses have been documented in the HPI. ROS Other: All systems not noted in ROS Statement are negative. Past Medical History Past Medical History: Atrial Fibrillation, Coronary Artery Disease (CAD), Cancer, Heart Failure, Hypertension, Myocardial Infarction (NM), Osteoarthritis (OA), Prostate Disorder, Respiratory Disorder Additional Past Medical History / Comment(s): Pt recently admitted to [facility] on 08/22/20 with intractable low back pain with kyphoplasty T10 with biopsy (pt has mets to bone) Pt recently in [facility] ER on 09/03/20 with constipation/colitis. 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 and was on Rocephin for 6 weeks in 2012-pt and spouse cannot recall if it was MRSA, BPH, large kidney stone pt was told he would never be able to pass-cannot recall which side Last Myocardial Infarction Date:: mar 2018 History of Any Multi-Drug Resistant Organisms: None Reported Past Surgical History: Back Surgery, Heart Catheterization With Stent, Joint Replacement, Orthopedic Surgery, Pacemaker Additional Past Surgical History / Comment(s): 08/2019 kyphoplasty/bx T10, 09/2019 bronch with bx/brushings/BAL, 2018 pacemaker, bilateral knee arthroscopies, bilateral total knee replacements, R knee surgery for patellar tendon tear, PCI with stents x 3, colonoscopy, bilateral cataract removals. Past Anesthesia/Blood Transfusion Reactions: Motion Sickness Date of Last Stent Placement:: 03/23 Type of Cardiac Device: Permanent Pacemaker Device Placement Date:: 08/18 Past Psychological History: No Psychological Hx Reported Additional Psychological History / Comment(s): Pt at [facility] at home with spouse and palliative home care w/ [facility]. Pt getting up with PT with back/chest brace in place and getting into wheelchair per spouse. Requires two to assist Smoking Status: Former smoker Past Alcohol Use History: Rare Additional Past Alcohol Use History / Comment(s): Pt started smoking in 1952 and quit in 1977 Past Drug Use History: None Reported - Past Family History Sister(s) Family Medical History: Cancer Brother(s) Family Medical History: Cancer Additional Family Medical History / Comment(s): 3 brothers cancer Father Family Medical History: Coronary Artery Disease (CAD), CVA/TIA, Myocardial Infarction (NM) Additional Family Medical History / Comment(s): Father had TIAs and MIs. He between the ages of 62-68yrs from what pt believes was a NM Mother Family Medical History: Myocardial Infarction (NM) Additional Family Medical History / Comment(s): Mother of a NM at the age of 88yrs. General Exam Limitations: physical limitation General appearance: alert, in no apparent distress Respiratory exam: Present: normal lung sounds bilaterally. Absent: respiratory distress, wheezes, rales, rhonchi, stridor Cardiovascular Exam: Present: regular rate, normal rhythm, normal heart sounds. Absent: systolic murmur, diastolic murmur, rubs, gallop, clicks GI/Abdominal exam: Present: soft, distended, tenderness, normal bowel sounds. Absent: guarding, rebound, rigid Course Vital Signs 01/30/21 01/30/21 10:16 10:59 Temperature 97.7 F Pulse Rate 76 72 Respiratory 18 20 Rate Blood Pressure 131/71 133/80 O2 Sat by Pulse 96 95 Oximetry Medical Decision Making - Medical Decision Making 80-year-old constipation. Patient feels greatly improved at this time. Patient discharged stable condition. Disposition Clinical Impression: Constipation Disposition: HOME SELF-CARE Condition: Stable Instructions (If sedation given, give patient instructions): Constipation (ED) Additional Instructions: Please return to the Emergency Department if symptoms worsen or any other concerns. Is patient prescribed a controlled substance at d/c from ED?: No Referrals: Fredy Rodriguez III, MD [Primary Care Provider] - 1-2 days Time of Disposition: 13:30
[2021-01-30] MEDS ORDERED: LORazepam 2 MG/ML INJ IV STA (10:54)
--- NOTE | 2021-01-30 11:43 | XR ---
EXAMINATION TYPE: XR KUB DATE OF EXAM: 01/30/2021 COMPARISON: 11/21/2020 HISTORY: Constipation abdomen pain TECHNIQUE: AP abdomen FINDINGS: Normal colonic bowel gas is present. Moderate fecal retention is present in the ascending a nd descending colon. Mild fecal debris may be within the distal transverse colon. Calcification overlies the left kidney measuring 1 cm may be a renal stone. Postsurgical changes are at the thoracolumbar junction. Psoas margins are normal. No mass effect is e vident. Is made of degenerative changes left hip. IMPRESSION: 1. Mild fecal retention. No obstruction is radiographically apparent.
[2021-01-30] MEDS ORDERED: MAGNESIUM HYDROXIDE 2,400 MG/10 ML CUP PO STA (12:20)
[2021-01-30 14:19] VITALS: RESP 18
[2021-01-30 14:22] VITALS: BP 146/93; PULSE 83; TEMP 97.2
== END 2021-01-30 14:49 | disposition home or self-care (01) ==
LOC: EC 10:01
DX: K59.00 Constipation, unspecified (principal); R10.9 Unspecified abdominal pain; I11.0 Hypertensive heart disease with heart failure; I50.9 Heart failure, unspecified; I48.91 Unspecified atrial fibrillation; I25.2 Old myocardial infarction; Z88.5 Allergy status to narcotic agent; Z88.8 Allergy status to other drugs, medicaments and biological substances; Z79.899 Other long term (current) drug therapy; Z87.891 Personal history of nicotine dependence
CPT/HCPCS: 74018; 99284; 96374; 96375; J2060; J1170

== ENCOUNTER → 2021-02-08 | Outpatient (CLI) | payer MEDICARE ==
--- NOTE | 2021-02-13 15:15 | PE ---
Nuclear medicine PET/CT HISTORY: C 34.80, subsequent Patient received 10.5 mCi F-18 FDG intravenously in delayed scanning was performed from the skull bas e to the mid thighs. Localization and attenuation correction CT scan was performed. Correlation to prior nuclear medicine PET/CT dated 06/15/2020 There is motion on the exam. Chest and neck: There is no cervical or supraclavicular adenopathy evident. There is interval develop ment of a large right pleural effusion with associated atelectasis. Multiple pulmonary nodules are ag ain seen. There is some associated central calcification. In the left upper lobe there is abnormal de nsity which was present on previous exam but likely slightly increased, there is some associated hype rmetabolic uptake present, SUV is 4.4 and a crescentic pattern. Left pleural effusion is suspected, there is extensive streak artifact present, there is likely atele ctatic lung present. No evident mediastinal, axillary, or hilar adenopathy. ABDOMEN: There is a focus of hypermetabolic uptake peripherally within the liver which is new compare d to prior exam, SUV is 4.6. No retroperitoneal adenopathy or evident adrenal mass. There is no ascit es. Osseous structures show multiple foci of abnormal hypermetabolic uptake not seen on prior exam to inc lude the pelvis, left proximal femur, sacrum, spine and sternum postop changes are noted to the thora cic spine and there is some local abnormal uptake present, streak artifact. IMPRESSION: Interval development of metastatic disease.
== END | disposition home or self-care (01) ==
LOC: RADPETMAIN 16:13
PROVIDERS: ATTEND Registered Nurse
DX: C34.12 Malignant neoplasm of upper lobe, left bronchus or lung (principal)
CPT/HCPCS: 78815; A9552